=== PATIENT | female | born 1990 | race Caucasian/White ===

== ENCOUNTER 2019-12-01 12:49 | Emergency (ER) | payer SELFPAY ==
[2019-12-01 12:52] VITALS: BP 121/72; PULSE 101; RESP 16; TEMP 36.9; O2SAT 100; BMI 25.0
--- NOTE | 2019-12-01 13:08 | CT_ITS ---
PROCEDURE: CT CERVICAL SPINE WO CON CLINICAL INDICATION: fall, neck pain Neck injury with pain, contusion/abrasion or hematoma, cervical sprain/strain the COMPARISON: No exams were available for comparison TECHNIQUE: Axial images obtained with sagittal and coronal reformats. All CT scans at the facility use one or more dose reduction, viz: automated exposure control, ma/kV adjustment per patient size (including targeted exams where dose is matched to indication, i.e. head), or iterative reconstruction technique. Axial spiral CT scanning performed of the cervical spine beginning at the base of the skull and continuing to the upper T-spine. 3-D multiplanar reconstruction with 3-D manipulation of volumetric data set in image rendering was completed by the radiologist and/or technologist with the supervision of the radiologist on independent workstation. FINDINGS: No fracture nor subluxation is evident. Normal prevertebral soft tissues. Facets, neural foramen and vertebral bodies intact and unremarkable. Normal C1/C2 relationships. Apices of lungs are clear with no acute findings.There is straightening/reversal of the normal lordosis which may be due to patient positioning or muscle spasm. Scattered small nodes in the IMPRESSION: Straightening of cervical lordosis otherwise negative Dictated by: Usman Werner MD 12/01/2019 15:31 Usman Werner MD in [facility] 12/01/2019 15:31
--- NOTE | 2019-12-01 13:08 | CT_ITS ---
PROCEDURE: CT HEAD/BRAIN WO CON CLINICAL INDICATION: fall, LOC Head injury with headache/pain, contusion, abrasion or hematoma COMPARISON: No exams were available for comparison TECHNIQUE: Axial images obtained. All CT scans at the facility use one or more dose reduction, viz: automated exposure control, ma/kV adjustment per patient size (including targeted exams where dose is matched to indication, i.e. head), or iterative reconstruction technique. FINDINGS: No midline shift, mass effect, intracranial hemorrhage, hydrocephalus, or extra-axial fluid collection is evident. The calvarium has an unremarkable appearance. No mastoid effusion. No sinus air-fluid level. IMPRESSION: No acute intracranial finding Dictated by: Usman Werner MD 12/01/2019 15:28 Usman Werner MD in [facility] 12/01/2019 15:28
--- NOTE | 2019-12-01 13:08 | XR_ITS ---
PROCEDURE: XR ELBOW RT 2V CLINICAL INDICATION: fall, pain COMPARISON: No exams were available for comparison FINDINGS: No fracture or dislocation. No lytic or blastic change. There is normal mineralization. The joint spaces are well-preserved. No significant degenerative/arthritic changes. No erosive changes evident. Other findings:Intravenous catheter noted in the antecubital fossa IMPRESSION: No acute findings. Dictated by: Usman Werner MD 12/01/2019 15:32 Usman Werner MD in [facility] 12/01/2019 15:32
--- NOTE | 2019-12-01 13:10 | HMH.EDGENADL ---
ED Disposition Clinical Impression: Alcohol use Concussion Qualifiers: Encounter type: initial encounter Loss of consciousness presence/duration: with LOC of unspecified duration Qualified Code(s): S06.0X9A - Concussion with loss of consciousness of unspecified duration, initial encounter Fall Qualifiers: Encounter type: initial encounter Qualified Code(s): W19.XXXA - Unspecified fall, initial encounter Disposition: Home, Self-Care Condition on Discharge: Fair Instructions: DI for Concussion Additional Instructions: You have been evaluated for fall, closed head injury. Please follow-up with your primary care doctor in 1 to 2 days for symptom recheck. Avoid second head injury or fall. Return to the emergency department if you have any new or worsening symptoms Referrals: Nehemias Barron [Primary Care Provider] - Time of Disposition: 15:34 - Critical Care Critical Care Time: No Attestation: On 12/01/19, the high probability of a clinically significant, sudden or life threatening deterioration of the following system(s) required my full and direct attention, intervention and personal management. The time I documented below is in addition to time spent performing reported procedures but includes the following listed in this critical care notation. Medical Decision Making - Medical Records Medical records reviewed: Yes: I reviewed the patient's medical records. - Cristi Inquiry Pt receiving controlled substance: No Vital Signs: 12/01/19 12:52 12/01/19 14:10 12/01/19 14:49 Temperature 98.5 F Temperature Source Oral Pulse Rate Pulse Rate [Right] 101 H 87 70 Respiratory Rate 16 16 Blood Pressure Blood Pressure [Right Arm] 121/72 123/69 117/63 Blood Pressure Mean [Right Arm] 88 87 81 Blood Pressure Source [Right Arm] Automatic Cuff Automatic Cuff Automatic Cuff Blood Pressure Position [Right Arm] Sitting Sitting Sitting 02 Sat by Pulse Oximetry 100 100 98 Oxygen Delivery Method Room Air Room Air Room Air 12/01/19 16:06 Temperature 98.4 F Temperature Source Pulse Rate 64 Pulse Rate [Right] Respiratory Rate 17 Blood Pressure 118/87 Blood Pressure [Right Arm] Blood Pressure Mean [Right Arm] Blood Pressure Source [Right Arm] Blood Pressure Position [Right Arm] 02 Sat by Pulse Oximetry Oxygen Delivery Method - Lab Data Lab Results 12/01/19 13:50: WBC 5.3, RBC 4.11 L, Hgb 13.4, Hct 37.3, MCV 90.7, MCH 32.6 H, MCHC 35.9 H, RDW 12.6, Plt Count 199, MPV 7.6, Neut % (Auto) 78.6, Lymph % (Auto) 17.5, [place] % (Auto) 3.2, Eos % (Auto) 0.5, Baso % (Auto) 0.2, Neut # (Auto) 4.2, Lymph # (Auto) 0.9, [place] # (Auto) 0.2, Eos # (Auto) 0.0, Baso # (Auto) 0.0 12/01/19 13:50: Sodium 141, Potassium 4.0, Chloride 105, Carbon Dioxide 27, Anion Gap 13.0, BUN 6 L, Creatinine 0.70, Estimated Creat Clear 130, Estimated GFR 100, Est GFR ( Amer) 121, Glucose 107 H, Calcium 9.8, Total Bilirubin 0.5, AST 35, ALT 56, Alkaline Phosphatase 67, Total Protein 8.0, Albumin 4.6, Globulin 3.4 H, Albumin/Globulin Ratio 1.4 12/01/19 13:50: Serum HCG, Qual Negative 12/01/19 13:50: Plasma/Serum Alcohol < 10 Result diagrams: 12/01/19 13:50 12/01/19 13:50 Medical Decision Narrative: In summary this is a 29-year-old female presenting to the emergency department with headache and right elbow pain after a fall last night. Patient is stable on arrival. She does not appear to be clinically intoxicated. However she has not slept in over 36 hours. Concerned that her history and exam are somewhat unreliable. Will obtain noncontrast head CT, CT C-spine, x-rays of the right elbow Elbow x-ray shows no fracture or dislocation. Noncontrast head CT shows no bleed or other abnormality. CT of the C-spine shows no bony abnormality. Overall presentation is most consistent with concussion, closed head injury. Fall and alcohol use. Patient counseled on concussion. Counseled to avoid second head injury. Follow-up with PCP. Samantha
[2019-12-01 14:10] VITALS: BP 123/69; PULSE 87; RESP 16; O2SAT 100
[2019-12-01 14:19] LABS: Basophils % 0.2 % (0.1-2.0); Eosinophils % 0.5 % (0.1-12.0); Hematocrit 37.3 % (37.0-47.0); Hemoglobin 13.4 g/dL (12.2-16.2); Lymphocytes # 0.9 K/mm3 (0.7-4.5); Lymphocytes % 17.5 % (10-50); Mean Corpuscular HGB Conc 35.9 g/dL (31.8-35.4); Mean Corpuscular Hemoglobin 32.6 pg (27.0-31.2); Mean Corpuscular Volume 90.7 fl (81-99); Mean Platelet Volume 7.6 fl (7.4-10.4); Monocytes # 0.2 K/mm3 (0.1-1.0); Monocytes % 3.2 % (1.7-9.3); Neutrophils # 4.2 K/mm3 (1.8-7.8); Neutrophils % 78.6 % (37.0-80.0); Platelet Count 199 K/mm3 (142-424); Red Blood Count 4.11 M/mm3 (4.20-5.40); Red Cell Distribution Width 12.6 % (11.5-17.5); White Blood Count 5.3 K/mm3 (4.8-10.8)
[2019-12-01 14:22] LABS: Chloride 105 mmol/L (98-107); Sodium 141 mmol/L (136-145)
[2019-12-01 14:25] LABS: Alanine Aminotransferase 56 U/L (12-78); Albumin Level 4.6 g/dl (3.5-5.0); Albumin/Globulin Ratio 1.4 (1.1-1.8); Alkaline Phosphatase 67 U/L (38-126); Aspartate Amino Transferase 35 U/L (14-36); Bilirubin,Total 0.5 mg/dl (0.2-1.3); Blood Urea Nitrogen 6 mg/dl (7-17); Calcium 9.8 mg/dl (8.4-10.2); Carbon Dioxide 27 mmol/L (22.0-30.0); Creatinine Clearance Estimated 130 mL/min (50-200); Estimated Glomerular Filt Rate 100 ml/min (>60); GFR (African American) 121 ML/MIN (>60); Globulin 3.4 g/dL (1.3-3.2); Glucose 107 mg/dl (74-100)
[2019-12-01 14:30] LABS: HCG Qualitative, Serum Negative (Negative)
[2019-12-01 14:32] LABS: Ethyl Alcohol < 10 mg/dl (0-10)
[2019-12-01 14:49] VITALS: BP 117/63; PULSE 70; O2SAT 98
--- NOTE | 2019-12-01 15:02 | PC.NURSE ---
Pt gone to CT
[2019-12-01 16:06] VITALS: BP 118/87; PULSE 64; RESP 17; TEMP 36.9; O2SAT 100
== END 2019-12-01 16:07 | disposition home or self-care (01) ==
PROVIDERS: Emergency Provider Emergency Medicine; PCP Family Medicine
DX: S06.0X9A Concussion with loss of consciousness of unspecified duration, initial encounter (principal); S50.01XA Contusion of right elbow, initial encounter; W01.0XXA Fall on same level from slipping, tripping and stumbling without subsequent striking against object, initial encounter; Y92.009 Unspecified place in unspecified non-institutional (private) residence as the place of occurrence of the external cause; F10.10 Alcohol abuse, uncomplicated
CPT/HCPCS: 70450; 72125; 73070; 80053; 84703; 85025; 99283

== ENCOUNTER 2019-12-03 00:26 | Emergency (ER) | payer OTHER, SELFPAY ==
[2019-12-03 00:27] VITALS: BMI 20.1
[2019-12-03 00:42] VITALS: BP 111/58; PULSE 92; RESP 14; TEMP 37; O2SAT 98; BMI 25.0
[2019-12-03 00:48] LABS: Microscopic, Urine URINE MICROSCOPIC (MICROSCOPIC)
[2019-12-03 00:51] LABS: Blood, Urine Negative (Negative); Glucose,Urine (UA) Negative (Negative); Ketones,Urine TRACE (Negative); Leukocyte Esterase,Urine 1+ (Negative); Nitrate,Urine Negative (Negative); Protein,Urine 1+ (Negative); Specific Gravity, Urine 1.025 (1.005-1.030); Urobilinogen,Urine 0.2 EU/dl (0.2)
[2019-12-03 01:07] LABS: Urine Pregnancy, HCG Qual. Negative (Negative)
[2019-12-03 01:08] LABS: Appearance,Urine Slightly Cloudy (Clear); Bilirubin,Urine Negative (Negative); Color,Urine Dark Yellow (Yellow)
[2019-12-03 01:10] LABS: Bacteria,Urine Trace /lpf; Squamous Epithelial Cell,Urine Occasional #/hpf (0-5)
--- NOTE | 2019-12-03 01:35 | HMH.EDSKAF ---
ED Disposition Clinical Impression: Dermatitis Disposition: Home, Self-Care Condition on Discharge: Good Instructions: DI for Skin Abscess Additional Instructions: use meds and see pcp for follo wup Prescriptions: Fluconazole [Diflucan 100mg tablet] 100 mg PO DAILY #5 tab Transmission Status: Pending to [facility] [id number] predniSONE [Prednisone 20mg Tab] 20 mg PO BID #10 tab Transmission Status: Pending to [facility] # [id number] Referrals: Nehemias Barron [Primary Care Provider] - - Critical Care Critical Care Time: No Attestation: On 12/03/19, the high probability of a clinically significant, sudden or life threatening deterioration of the following system(s) required my full and direct attention, intervention and personal management. The time I documented below is in addition to time spent performing reported procedures but includes the following listed in this critical care notation. Medical Decision Making - Medical Records Medical records reviewed: Yes: I reviewed the patient's medical records. - Cristi Inquiry Pt receiving controlled substance: No Vital Signs: 12/03/19 00:42 Temperature 98.6 F Temperature Source Oral Pulse Rate [Right Brachial] 92 H Respiratory Rate 14 Blood Pressure [Right Arm] 111/58 L Blood Pressure Mean [Right Arm] 75 Blood Pressure Source [Right Arm] Automatic Cuff Blood Pressure Position [Right Arm] Sitting 02 Sat by Pulse Oximetry 98 Oxygen Delivery Method Room Air - Lab Data Lab results reviewed: Yes: I reviewed the patient's lab results. Lab Results 12/03/19 00:45: Urine Color Dark yellow, Urine Appearance Slightly cloudy, Urine pH 6.0, Ur Specific [place] 1.025, Urine Protein 1+, Urine Glucose (UA) Negative, Urine Ketones Trace, Urine Blood Negative, Urine Nitrate Negative, Urine Bilirubin Negative, Urine Urobilinogen 0.2, Ur Leukocyte Esterase 1+ A, Urine WBC 3-5, Ur Squamous Epith Cells Occasional, Urine Bacteria Trace 12/03/19 00:45: Urine HCG, Qual Negative Orders (Tests/Meds): ORDERS Category Date Time Status Urine Culture Stat Micro 12/03/19 00:45 Received Skin/Abscess/FB HPI - General Chief complaint: Skin/Abscess/Foreign Body Stated complaint: Rash from waist down, itches and harris Time Seen by Provider: 12/03/19 00:50 Mode of Arrival: Ambulatory Source of Information: Patient, Relative, Medical Record Limitations: No Limitations Description of Symptoms (Recalled from ER Triage Doc. by RN): Patient reports a rash that starts around her waist, butt and goes down around on her inner thighs. - History of Present Illness HPI narrative: inner thigh and buttock rash over the last 2 days with burning and itching MD complaint: rash Onset (ago): day(s) Tetanus up to date: unsure Location: buttocks Severity: moderate Associated symptoms: denies other symptoms Treatments prior to arrival: none - Related Data Home Medications Medication Instructions Recorded Confirmed Buspirone HCl [Buspirone 7.5mg 7.5 mg PO DAILY 12/03/19 12/03/19 tablets] Prazosin HCl [Minipress] 1 mg PO DAILY 12/03/19 12/03/19 Trazodone HCl 50 mg PO DAILY 12/03/19 12/03/19 Venlafaxine HCl 75 mg PO DAILY 12/03/19 12/03/19 levETIRAcetam [Levetiracetam] 750 mg PO DAILY 12/03/19 12/03/19 norgestimate-ethinyl estradioL 0.25 - 35 mg PO DAILY 12/03/19 12/03/19 [Previfem Tablet] Previous Rx's Medication Instructions Recorded Fluconazole [Diflucan 100mg tablet] 100 mg PO DAILY #5 tab 12/03/19 predniSONE [Prednisone 20mg 20 mg PO BID #10 tab 12/03/19 Tab] Allergies Allergy/AdvReac Type Severity Reaction Status Date / Time SULFA (sulfonamide) Allergy Intermediate I-RASH Uncoded 03/29/17 15:29 [facility] History - Hepatitis A Screen Drug use history?: No High risk sexual behaviors?: No History of sexually transmitted infection?: No Currently employed?: No Childcare worker?: No Do you have indoor plumbing?: Yes Do you have electricit
[2019-12-03 01:41] VITALS: BP 110/66; PULSE 77; RESP 16; TEMP 37; O2SAT 98
== END 2019-12-03 01:48 | disposition home or self-care (01) ==
PROVIDERS: Emergency Provider Emergency Medicine; PCP Family Medicine
DX: L30.9 Dermatitis, unspecified (principal); Z88.2 Allergy status to sulfonamides; F17.210 Nicotine dependence, cigarettes, uncomplicated
CPT/HCPCS: 81001; 81025; 87086; 99282

== ENCOUNTER 2020-10-22 23:03 | Emergency (ER) | payer OTHER, SELFPAY ==
[2020-10-22 23:04] VITALS: BP 134/85; PULSE 107; RESP 18; TEMP 36.9; O2SAT 98
--- NOTE | 2020-10-22 23:29 | HMH.EDNVD ---
ED Disposition Clinical Impression: Abdominal pain Qualifiers: Abdominal location: right upper quadrant Qualified Code(s): R10.11 - Right upper quadrant pain Disposition: Home, Self-Care Condition on Discharge: Good Instructions: DI for Acute Abdominal Pain Additional Instructions: pt will f/u with pcp Referrals: Nehemias Barron [Primary Care Provider] - - Critical Care Critical Care Time: No Attestation: On 10/22/20, the high probability of a clinically significant, sudden or life threatening deterioration of the following system(s) required my full and direct attention, intervention and personal management. The time I documented below is in addition to time spent performing reported procedures but includes the following listed in this critical care notation. Medical Decision Making - Medical Records Medical records reviewed: Yes: I reviewed the patient's medical records. - Cristi Inquiry Pt receiving controlled substance: No Vital Signs: 10/22/20 23:04 Temperature 98.4 F Temperature Source Oral Pulse Rate [Right] 107 H Respiratory Rate 18 Blood Pressure [Right Arm] 134/85 Blood Pressure Mean [Right Arm] 101 02 Sat by Pulse Oximetry 98 - Lab Data Lab results reviewed: Yes: I reviewed the patient's lab results. Lab Results 10/22/20 23:12: Urine Color Yellow, Urine Appearance Clear, Urine pH 7.0, Ur Specific [place] 1.020, Urine Protein Negative, Urine Glucose (UA) Negative, Urine Ketones Negative, Urine Blood Negative, Urine Nitrate Negative, Urine Bilirubin Negative, Urine Urobilinogen 0.2, Ur Leukocyte Esterase Trace, Urine RBC Occasional, Urine WBC 3-5, Ur Squamous Epith Cells Occasional, Urine Bacteria Trace 10/22/20 23:12: WBC 4.7 L, RBC 4.56, Hgb 13.9, Hct 40.5, MCV 88.8, MCH 30.6, MCHC 34.4, RDW 13.2, Plt Count 227, MPV 7.7, Neut % (Auto) 59.0, Lymph % (Auto) 36.1, [place] % (Auto) 3.5, Eos % (Auto) 0.6, Baso % (Auto) 0.7, Neut # (Auto) 2.8, Lymph # (Auto) 1.7, [place] # (Auto) 0.2, Eos # (Auto) 0.0, Baso # (Auto) 0.0, ESR 7 10/22/20 23:12: Urine HCG, Qual Negative 10/22/20 23:12: Sodium 140, Potassium 4.0, Chloride 102, Carbon Dioxide 29, Anion Gap 13.0, BUN 12, Creatinine 0.70, Estimated Creat Clear 103, Estimated GFR 100, Est GFR ( Amer) 121, Glucose 96, Calcium 9.3, Total Bilirubin 0.7, AST 29, ALT 32, Alkaline Phosphatase 87, Total Protein 8.2, Albumin 4.9, Globulin 3.3 H, Albumin/Globulin Ratio 1.5, Amylase 75, Lipase 149, Procalcitonin < 0.030 10/22/20 23:12: Urine Opiates Screen Negative, Urine Methadone Screen Negative, Ur Barbituates Screen Negative, Ur Phencyclidine Scrn Negative, Ur Amphetamines Screen Negative, U Benzodiazepines Scrn Negative, Urine Cocaine Screen Negative, U Marijuana (THC) Screen Negative Result diagrams: 10/22/20 23:12 10/22/20 23:12 Orders (Tests/Meds): ED MEDICATIONS Generic Name Dose Route Start Last Admin Trade Name Freq PRN Reason Stop Dose Admin Sodium Chloride 1,000 mls @ 999 mls/hr 10/22/20 23:30 10/22/20 23:51 Sod Chlor 0.9% 1000ml Bag IV 10/23/20 00:30 999 mls/hr .Q1H1M CJ Administration Sodium Chloride 8 ml 10/22/20 23:22 Sodium Chloride 0.9% 10ml Vial IV 11/21/20 23:21 NEEDED PRN dilute pepcid Discontinued Medications Generic Name Dose Route Start Last Admin Trade Name Freq PRN Reason Stop Dose Admin Diatrizoate Meglum/Diatrizoate Sod 30 ml 10/22/20 23:20 10/22/20 23:50 Diatrizoate [place] 66% & Diatrizoate Na 10% 30ml Udc PO 10/22/20 23:21 30 ml ONCE ONE Administration Famotidine 20 mg 10/22/20 23:22 10/22/20 23:51 Famotidine 20mg/2ml Vial IV 10/22/20 23:23 20 mg ONCE ONE Administration Iopamidol 75 ml 10/23/20 01:40 10/23/20 01:42 Iopamidol-370 (76%);100ml Bottle IV 10/23/20 01:41 75 ml ONCE ONE Administration Ketorolac Tromethamine 30 mg 10/22/20 23:22 10/22/20 23:50 Ketorolac 30mg/Ml Vial IV 10/22/20 23:23 30 mg ONCE ONE Administration Metoclopramide HCl 10 m
[2020-10-22 23:30] LABS: Microscopic, Urine URINE MICROSCOPIC (MICROSCOPIC)
[2020-10-22 23:33] LABS: Basophils % 0.7 % (0.1-2.0); Eosinophils % 0.6 % (0.1-12.0); Hematocrit 40.5 % (37.0-47.0); Hemoglobin 13.9 g/dL (12.2-16.2); Lymphocytes # 1.7 K/mm3 (0.7-4.5); Lymphocytes % 36.1 % (10-50); Mean Corpuscular HGB Conc 34.4 g/dL (31.8-35.4); Mean Corpuscular Hemoglobin 30.6 pg (27.0-31.2); Mean Corpuscular Volume 88.8 fl (81-99); Mean Platelet Volume 7.7 fl (7.4-10.4); Monocytes # 0.2 K/mm3 (0.1-1.0); Monocytes % 3.5 % (1.7-9.3); Neutrophils # 2.8 K/mm3 (1.8-7.8); Platelet Count 227 K/mm3 (142-424); Red Blood Count 4.56 M/mm3 (4.20-5.40); Red Cell Distribution Width 13.2 % (11.5-17.5); White Blood Count 4.7 K/mm3 (4.8-10.8)
[2020-10-22 23:41] LABS: Appearance,Urine CLEAR (Clear); Bilirubin,Urine Negative (Negative); Blood, Urine Negative (Negative); Color,Urine YELLOW (Yellow); Glucose,Urine (UA) Negative (Negative); Ketones,Urine Negative (Negative); Leukocyte Esterase,Urine TRACE (Negative); Nitrate,Urine Negative (Negative); Protein,Urine Negative (Negative); Urobilinogen,Urine 0.2 EU/dl (0.2)
[2020-10-22 23:42] LABS: Alanine Aminotransferase 32 U/L (12-78); Albumin Level 4.9 g/dl (3.5-5.0); Albumin/Globulin Ratio 1.5 (1.1-1.8); Alkaline Phosphatase 87 U/L (38-126); Amylase 75 U/L (30-110); Aspartate Amino Transferase 29 U/L (14-36); Bilirubin,Total 0.7 mg/dl (0.2-1.3); Blood Urea Nitrogen 12 mg/dl (7-17); Calcium 9.3 mg/dl (8.4-10.2); Carbon Dioxide 29 mmol/L (22.0-30.0); Chloride 102 mmol/L (98-107); Creatinine Clearance Estimated 103 mL/min (50-200); Estimated Glomerular Filt Rate 100 ml/min (>60); GFR (African American) 121 ML/MIN (>60); Globulin 3.3 g/dL (1.3-3.2); Glucose 96 mg/dl (74-100); Lipase 149 U/L (23-300); Sodium 140 mmol/L (136-145); Total Protein,Serum 8.2 g/dl (6.3-8.2)
[2020-10-22 23:43] LABS: Urine Pregnancy, HCG Qual. Negative (Negative)
--- NOTE | 2020-10-23 | PC.NURSE ---
pt completed contrast and notified xray of contrast being complete
[2020-10-23 00:02] LABS: Procalcitonin < 0.030 ng/mL (0.0-2.0)
--- NOTE | 2020-10-23 00:05 | CT_ITS ---
PROCEDURE INFORMATION: Exam: CT Abdomen And Pelvis With Contrast Exam date and time: 10/23/2020 12:05 AM Age: 30 years old Clinical indication: Abdominal pain; Right; Prior surgery; Surgery date: 6+ months; Surgery type: Appendix; Patient HX: Rlq and RT flank pain TECHNIQUE: Imaging protocol: Computed tomography of the abdomen and pelvis with contrast. Radiation optimization: All CT scans at this facility use at least one of these dose optimization techniques: automated exposure control; mA and/or kV adjustment per patient size (includes targeted exams where dose is matched to clinical indication); or iterative reconstruction. Contrast material: ISOVUE; Contrast volume: 75 ml; Contrast route: IV; COMPARISON: No relevant prior studies available. FINDINGS: Liver: Unremarkable. No definable mass or enhancing hepatic lesion. Gallbladder and bile ducts: Gallbladder is partially decompressed but otherwise unremarkable. Pancreas: Normal. No ductal dilation. Spleen: Normal. No splenomegaly. Adrenal glands: Normal. No mass. Kidneys and ureters: Kidneys enhance symmetrically and there is no evidence for obstructive uropathy. Stomach and bowel: Unremarkable. No obstruction. No mucosal thickening. Appendix: The appendix is not definitively visualized, possibly small or absent, however, regional sequela of appendicitis is not identified. Intraperitoneal space: Unremarkable. No free air. No significant fluid collection. Vasculature: Unremarkable. No abdominal aortic aneurysm. Lymph nodes: Unremarkable. No enlarged lymph nodes. Urinary bladder: Unremarkable as visualized. Reproductive: Right adnexal 3.1 x 2.6 cm focus may relate to hemorrhagic ovarian cyst. Bones/joints: Unremarkable. No acute fracture. Soft tissues: Unremarkable. IMPRESSION: 1. No overt acute inflammatory process or suspicious mass noted. No evidence for bowel obstruction or obstructive uropathy. 2. Right adnexal 3.1 x 2.6 cm focus may relate to hemorrhagic ovarian cyst.
[2020-10-23 00:10] LABS: Bacteria,Urine Trace /lpf; RBC,Urine Occasional #/hpf (0-3); Squamous Epithelial Cell,Urine Occasional #/hpf (0-5)
[2020-10-23 00:40] LABS: Benzodiazepines Screen,Urine Negative ng/ml (<200)
[2020-10-23 00:41] LABS: Amphetamine/Metha Screen,Urine Negative ng/ml (<1000)
[2020-10-23 00:42] LABS: Barbiturates Screen,Urine Negative ng/ml (<200); Cannabinoid Screen,Urine Negative ng/ml (<50)
[2020-10-23 00:44] LABS: Methadone Screen,Urine Negative ng/ml (<300); Opiate Screen,Urine Negative ng/ml (<300)
[2020-10-23 00:45] LABS: Phencyclidine Screen,Urine Negative ng/ml (<25)
[2020-10-23 00:51] LABS: Cocaine Screen,Urine Negative ng/ml (<300)
[2020-10-23 01:11] LABS: Erythrocyte Sedimentation Rate 7 mm/hr (0-20)
--- NOTE | 2020-10-23 01:33 | PC.NURSE ---
pt gone to radiology at this time
--- NOTE | 2020-10-23 01:48 | PC.NURSE ---
pt back in room from radiology.
[2020-10-23 03:56] VITALS: BP 120/75; PULSE 91; RESP 16; TEMP 36.9; O2SAT 99
[2020-10-23 04:37] LABS: C-Reactive Protein < 0.3 mg/L (0-4)
== END 2020-10-23 03:58 | disposition home or self-care (01) ==
PROVIDERS: Emergency Provider Emergency Medicine; PCP Family Medicine
DX: R10.31 Right lower quadrant pain (principal); R11.0 Nausea; F17.210 Nicotine dependence, cigarettes, uncomplicated
CPT/HCPCS: 74177; 80053; 80305; 81001; 81025; 82150; 83690; 84145; 85025; 85651; 86140; 96365; 96375; 99283; J2405; Q9967

== ENCOUNTER → 2021-11-17 06:21 | Outpatient (CLI) | payer OTHER, SELFPAY ==
[2021-11-17 18:48] LABS: Basophils # 0.1 K/mm3 (0-0.2); Basophils % 0.8 % (0.1-2.0); Eosinophils % 0.3 % (0.1-12.0); Hematocrit 37.8 % (37.0-47.0); Hemoglobin 12.1 g/dL (12.2-16.2); Lymphocytes # 1.5 K/mm3 (0.7-4.5); Lymphocytes % 23.9 % (10-50); Mean Corpuscular HGB Conc 31.9 g/dL (31.8-35.4); Mean Corpuscular Hemoglobin 32.1 pg (27.0-31.2); Mean Corpuscular Volume 100.8 fl (81-99); Mean Platelet Volume 8.9 fl (7.4-10.4); Monocytes # 0.3 K/mm3 (0.1-1.0); Monocytes % 4.2 % (1.7-9.3); Neutrophils # 4.3 K/mm3 (1.8-7.8); Neutrophils % 70.8 % (37.0-80.0); Platelet Count 224 K/mm3 (142-424); Red Blood Count 3.75 M/mm3 (4.20-5.40); Red Cell Distribution Width 12.4 % (11.5-17.5); White Blood Count 6.1 K/mm3 (4.8-10.8)
[2021-11-17 19:10] LABS: Alanine Aminotransferase 28 U/L (12-78); Albumin Level 4.4 g/dl (3.5-5.0); Albumin/Globulin Ratio 1.5 (1.1-1.8); Alkaline Phosphatase 67 U/L (38-126); Anion Gap 11.3 mEq/L (5-15); Aspartate Amino Transferase 26 U/L (14-36); Bilirubin,Total 0.5 mg/dl (0.2-1.3); Calcium 9.3 mg/dl (8.4-10.2); Carbon Dioxide 27 mmol/L (22.0-30.0); Chloride 105 mmol/L (98-107); Globulin 2.9 g/dL (1.3-3.2); Glucose 95 mg/dl (74-100); Potassium 4.3 mmoL/L (3.5-5.1); Sodium 139 mmol/L (136-145); Total Protein,Serum 7.3 g/dl (6.3-8.2)
[2021-11-17 20:09] LABS: Blood Urea Nitrogen 14 mg/dl (7-17); Estimated Glomerular Filt Rate 118 ml/min (>60); GFR (African American) 143 ML/MIN (>60)
== END ==
PROVIDERS: PCP Family Medicine; Visit Provider Family Medicine
DX: R11.2 Nausea with vomiting, unspecified (principal)
CPT/HCPCS: 80053; 85025

== ENCOUNTER 2023-08-17 10:19 | Outpatient (CLI) | payer OTHER, SELFPAY ==
[2023-08-17 12:16] LABS: HCG,Quantitative 159900 mIU/ml (0-5.42)
[2023-08-18 08:19] LABS: Progesterone 20.3 ng/mL (.)
== END 2023-08-17 23:59 | disposition home or self-care (01) ==
LOC: LAB 10:23
PROVIDERS: PCP Family Medicine; Visit Provider Obstetrics & Gynecology
DX: N92.6 Irregular menstruation, unspecified (principal); Z32.00 Encounter for pregnancy test, result unknown
CPT/HCPCS: 36415; 84144; 84702

== ENCOUNTER 2023-08-19 18:14 | Emergency (ER) | payer OTHER, SELFPAY ==
[2023-08-19 18:15] VITALS: BP 101/68; PULSE 117; RESP 16; TEMP 36.8; O2SAT 98; BMI 21.2
[2023-08-19 19:37] LABS: Basophils % 0.5 % (0.1-2.0); Eosinophils # 0.1 K/mm3 (0.0-0.4); Eosinophils % 1.8 % (0.1-12.0); Hematocrit 35.8 % (37.0-47.0); Hemoglobin 11.9 g/dL (12.2-16.2); Lymphocytes # 1.6 K/mm3 (0.7-4.5); Lymphocytes % 27.7 % (10-50); Mean Corpuscular HGB Conc 33.3 g/dL (31.8-35.4); Mean Corpuscular Hemoglobin 32.6 pg (27.0-31.2); Mean Corpuscular Volume 97.8 fl (81-99); Mean Platelet Volume 8.1 fl (7.4-10.4); Monocytes # 0.3 K/mm3 (0.1-1.0); Monocytes % 5.3 % (1.7-9.3); Neutrophils # 3.7 K/mm3 (1.8-7.8); Neutrophils % 64.8 % (37.0-80.0); Platelet Count 230 K/mm3 (142-424); Red Blood Count 3.66 M/mm3 (4.20-5.40); Red Cell Distribution Width 13.7 % (11.5-17.5); White Blood Count 5.8 K/mm3 (4.8-10.8)
[2023-08-19 19:45] LABS: Chloride 104 mmol/L (98-107); Potassium 3.9 mmoL/L (3.5-5.1); Sodium 136 mmol/L (136-145)
[2023-08-19 19:47] LABS: HCG Qualitative, Serum Positive (Negative)
[2023-08-19 19:48] LABS: Alanine Aminotransferase 25 U/L (12-78); Albumin Level 4.2 g/dl (3.5-5.0); Albumin/Globulin Ratio 1.3 (1.1-1.8); Alkaline Phosphatase 64 U/L (38-126); Anion Gap 12.9 mEq/L (5-15); Aspartate Amino Transferase 26 U/L (14-36); Bilirubin,Total 0.3 mg/dl (0.2-1.3); Blood Urea Nitrogen 10 mg/dl (7-17); Carbon Dioxide 23 mmol/L (22.0-30.0); Creatinine Clearance Estimated 187 mL/min (50-200); Estimated Glomerular Filt Rate 186 ml/min (>60); GFR (African American) 225 ML/MIN (>60); Globulin 3.3 g/dL (1.3-3.2); Total Protein,Serum 7.5 g/dl (6.3-8.2)
[2023-08-19 19:49] LABS: Calcium 9.1 mg/dl (8.4-10.2); Glucose 88 mg/dl (74-100)
--- NOTE | 2023-08-19 19:49 | US_ITS ---
PROCEDURE INFORMATION: Exam: US , Transvaginal Exam date and time: 08/19/2023 8:10 PM Age: 33 years old Clinical indication: Lmp or gestational age (in weeks): 10w2d; Antepartum complications; Bleeding; ; Additional info: Preg location TECHNIQUE: Imaging protocol: Real-time transvaginal obstetrical ultrasound of the maternal pelvis with image documentation. Transvaginal imaging was used for better evaluation of the fetus, adnexa, and/or cervix. COMPARISON: CT ABDOMEN PELVIS W CON 10/23/2020 1:28 AM FINDINGS: Gestation: Single intrauterine gestation. Yolk sac measures 0.53 cm. [place]-rump length 0.33 cm. heart rate: 176 bpm Placenta: Small subchorionic hemorrhage. BIOMETRY: Gestational age (AUA): 10 weeks 2 days MATERNAL: Cervix: Measures 3.24 cm in length. Right ovary/adnexa: Unremarkable ovary. Normal vascular flow. No adnexal mass. Left ovary/adnexa: Unremarkable ovary. Normal vascular flow. No adnexal mass. IMPRESSION: 1. Single live intrauterine gestation measuring 10 weeks 2 days. 2. Small subchorionic hemorrhage.
--- NOTE | 2023-08-19 19:49 | HMH.EDGENADL ---
Discharge Plan Disposition Patient Disposition: Home, Self-Care Prescriptions Prescriptions: New nitrofurantoin monohyd/m-cryst [Macrobid] 100 mg capsule 100 mg PO BID 5 Days Qty: 10 0RF Rx Instructions: must administer with a meal/food No Action hyoscyamine sulfate 0.125 mg tablet,disintegrating 0.125 mg PO QID Qty: 120 2RF levofloxacin 750 mg tablet 750 mg PO DAILY Qty: 5 0RF norgestimate-ethinyl estradiol 0.25-35 mg-mcg tablet 0.25 - 35 mg PO DAILY Referrals Follow up/Referrals: Nehemias Barron [Primary Care Provider] - See instructions Activity Restrictions/Add. Instructions Additional Instructions/Restrictions: At this time it was felt you are safe to be discharged home. If new or worsening symptoms please do not hesitate to return the emergency department. Please take antibiotics as prescribed and follow-up with your OB on Tuesday as discussed. Clinical Impressions Clinical Impression: , threatened, Vaginal bleeding in , Subchorionic hemorrhage, UTI (urinary tract infection) Discharge ED Provider: Polo Nicole General Adult HPI General Chief complaint: Vaginal Bleeding Stated complaint: 12-14 weeks with spotting blood Time Seen by Provider: 08/19/23 18:30 Mode of Arrival: Ambulatory Source of Information: Patient Limitations: No Limitations Description of Symptoms (Recalled from ER Triage Doc. by RN): pt presents to ED with c.o vaginal bleeding. pt reports she has appt with dr brittany marquez carlos. pt was told she is approx 12-14 weeks according to blood work. pt reports only wearing a panty liner for the day. she has changed that twice, pt reports bleeding light pink History of Present Illness HPI narrative: Patient is a 33-year-old female G7, P2 last menstrual period May 29 who presents emergency department for evaluation of vaginal bleeding in the setting of . Patient has had spotting since this morning, no passage of clots or tissue, no significant cramping, no dysuria. Due to persistent symptoms she presents here for continued evaluation. Related Data Home Medications Medication Instructions Recorded Confirmed norgestimate 0.25 mg-ethinyl 0.25 - 35 mg PO DAILY control 12/03/19 11/17/21 estradiol 35 mcg tablet Previous Rx's Medication Instructions Recorded hyoscyamine sulfate 0.125 mg 0.125 mg PO QID #120 tabs 11/17/21 disintegrating tablet levofloxacin 750 mg tablet 750 mg PO DAILY #5 tabs 11/17/21 nitrofurantoin 100 mg PO BID UTI 5 days #10 caps 08/19/23 monohydrate/macrocrystals 100 mg capsule (Macrobid) Allergies Allergy/AdvReac Type Severity Reaction Status Date / Time SULFA (sulfonamide) Allergy Intermediate I-RASH Uncoded 11/17/21 14:33 [facility] Disclaimer: The information contained in this section may have been updated after the patient was seen, as this information can be updated by other users. Social History Smoking Status: Former smoker alcohol intake: never substance use type: denies use current occupational status: employed Travel in the last 8 weeks: None ROS Obtained: Yes Systems reviewed as appropriate & no additional complaints except as documented Physical Exam General General appearance: alert and in no apparent distress Head Head exam: atraumatic and normocephalic Eye Eye exam: Present PERRL ENT ENT exam: Present mucous membranes moist Neck Neck exam: Present normal inspection Chest Chest inspection: Present normal inspection and symmetric chest wall rise Respiratory Respiratory exam: Present normal lung sounds bilaterally; Absent respiratory distress Cardiovascular Cardiovascular exam: Present regular rate and normal rhythm Abdominal Exam Abdominal exam: Present soft and other (Gravid); Absent tenderness Extremities Exam Extremities exam: Present normal inspection Neurological Exam Neurological exam: Present alert Psychiatric Psychiatric exam: Present normal affect Skin Skin exam: Present warm and dry Medical Decision Making Cristi Inquiry Pt receiving controlled substance: No Vital Signs: 08/19/23 18:15 08/19/23 21:13 Temperature 98.3 F Temperature Source Oral Pulse Rate 95 H Pulse Rate [Left Radial] 117 H Respiratory Rate 16 Blood Pressure 101/70 L Blood Pressure [Right Arm] 101/68 L Blood Pressure Mean 76 Blood Pressure Mean [Right Arm] 79 02 Sat by Pulse Oximetry 98 100 Oxygen Delivery Method Room Air Lab Data Lab Results 08/19/23 18:18: Urine Color Yellow, Urine Appearance Clear, Urine pH 6.5, Ur Specific [place] 1.025, Urine Protein Negative, Urine Glucose (UA) Negative, Urine Ketones Negative, Urine Blood Negative, Urine Nitrate Positive, Urine Bilirubin Negative, Urine Urobilinogen 0.2, Ur Leukocyte Esterase Trace, Urine RBC None, Urine WBC Occasional, Ur Squamous Epith Cells 5-10, Urine Bacteria 3+ 05/10/24 19:24: WBC 5.8, RBC 3.66 L, Hgb 11.9 L, Hct 35.8 L, MCV 97.8, MCH 32.6 H, MCHC 33.3, RDW 13.7, Plt Count 230, MPV 8.1, Neut % (Auto) 64.8, Lymph % (Auto) 27.7, Smith % (Auto) 5.3, Eos % (Auto) 1.8, Baso % (Auto) 0.5, Neut # (Auto) 3.7, Lymph # (Auto) 1.6, Smith # (Auto) 0.3, Eos # (Auto) 0.1, Baso # (Auto) 0.0, Sodium 136, Potassium 3.9, Chloride 104, Carbon Dioxide 23, Anion Gap 12.9, BUN 10, Creatinine 0.40 L, Estimated Creat Clear 187, Estimated GFR 186, Est GFR ( Amer) 225, Glucose 88, Calcium 9.1, Total Bilirubin 0.3, AST 26, ALT 25, Alkaline Phosphatase 64, Total Protein 7.5, Albumin 4.2, Globulin 3.3 H, Albumin/Globulin Ratio 1.3, Serum HCG, Qual Positive, HCG, Quant [id number] H, Blood Type AB Positive, Antibody Screen Negative 08/19/23 19:24 08/19/23 19:24 Orders (Tests/Meds): ORDERS Category Date Time Status Type and Screen Stat BBK 08/19/23 19:24 Completed CBC w/Auto Diff [Complete Blood Count Auto Diff] Stat Lab 08/19/23 19:24 Completed CMP [Comprehensive Metabolic Panel] Stat Lab 08/19/23 19:24 Completed HCG Qualitative, Serum Stat Lab 08/19/23 19:24 Completed HCG,Quantitative Stat Lab 08/19/23 19:24 Completed UA [Urinalysis and Microscopic] Stat Lab 08/19/23 18:18 Completed Urine Culture Stat Micro 08/19/23 18:18 Received US OB transvaginal Stat Ultrasound 08/19/23 19:49 Completed Medical Decision Narrative: In summary patient is a 33-year-old female with past medical history described above who presents emergency department for evaluation of vaginal bleeding. Patient is hemodynamically stable nontoxic-appearing upon arrival, afebrile. Differential diagnosis includes threatened miscarriage, ectopic , physiologic bleeding, among others. Workup will be conducted with hematologic labs, urinalysis, transvaginal ultrasound. Initial workup reviewed by me, hematologic labs are nonactionable, no MARYSE or critical electrolyte abnormality, no significant anemia, urinalysis interpreted by me and consistent with infection, nitrate positive, positive bacteria. Transvaginal ultrasound shows single live intrauterine gestational sac measuring 10 weeks and 2 days with small subchorionic hemorrhage, heart rate 176. Given this patient is appropriate for discharge at this time will be discharged with a course of Macrobid and follow-up with her education counselor on outpatient basis this coming Tuesday. Critical Care Critical Care Time Critical Care Time: No
--- NOTE | 2023-08-19 19:50 | PC.NURSE ---
notified radiology of needing tv us
[2023-08-19 20:28] LABS: Microscopic, Urine URINE MICROSCOPIC (MICROSCOPIC)
[2023-08-19 20:31] LABS: Appearance,Urine CLEAR (Clear); Bilirubin,Urine Negative (Negative); Blood, Urine Negative (Negative); Color,Urine YELLOW (Yellow); Glucose,Urine (UA) Negative (Negative); Ketones,Urine Negative (Negative); Leukocyte Esterase,Urine TRACE (Negative); Nitrate,Urine POSITIVE (Negative); PH,Urine 6.5 (5.0-8.5); Protein,Urine Negative (Negative); Specific Gravity, Urine 1.025 (1.005-1.030); Urobilinogen,Urine 0.2 EU/dl (0.2)
[2023-08-19 20:32] LABS: HCG,Quantitative 148440 mIU/ml (0-5.42)
[2023-08-19 20:45] LABS: Bacteria,Urine 3+ /lpf; WBC,Urine Occasional #/hpf (0-3)
[2023-08-19 21:13] VITALS: BP 101/70; PULSE 95; O2SAT 100
[2023-08-19 21:49] VITALS: BP 106/72; PULSE 91; RESP 16; TEMP 36.8; O2SAT 98
--- NOTE | 2023-08-26 07:39 | PC.NURSE ---
urine culture discussed with , pt dc on macrobid, ntd
== END 2023-08-19 21:49 | disposition home or self-care (01) ==
PROVIDERS: Emergency Provider Emergency Medicine; PCP Family Medicine
DX: O46.8X1 Other antepartum hemorrhage, first trimester (principal); O23.41 Unspecified infection of urinary tract in pregnancy, first trimester; B95.2 Enterococcus as the cause of diseases classified elsewhere; Z3A.10 10 weeks gestation of pregnancy
CPT/HCPCS: 36415; 76817; 80053; 81001; 84702; 84703; 85025; 86850; 87086; 87088; 87186; 99284

== ENCOUNTER 2023-08-23 14:50 | Outpatient (CLI) | payer OTHER, SELFPAY ==
[2023-08-23 15:36] LABS: Basophils % 0.7 % (0.1-2.0); Eosinophils # 0.1 K/mm3 (0.0-0.4); Hematocrit 35.7 % (37.0-47.0); Hemoglobin 11.6 g/dL (12.2-16.2); Lymphocytes # 1.2 K/mm3 (0.7-4.5); Lymphocytes % 23.8 % (10-50); Mean Corpuscular HGB Conc 32.6 g/dL (31.8-35.4); Mean Corpuscular Hemoglobin 32.1 pg (27.0-31.2); Mean Corpuscular Volume 98.6 fl (81-99); Mean Platelet Volume 8.1 fl (7.4-10.4); Monocytes # 0.3 K/mm3 (0.1-1.0); Monocytes % 4.9 % (1.7-9.3); Neutrophils # 3.5 K/mm3 (1.8-7.8); Neutrophils % 68.6 % (37.0-80.0); Platelet Count 231 K/mm3 (142-424); Red Blood Count 3.63 M/mm3 (4.20-5.40); White Blood Count 5.1 K/mm3 (4.8-10.8)
[2023-08-25 10:13] LABS: Rubella Antibodies, IgG 6.83 index (Immune >0.99)
[2023-08-25 12:18] LABS: HIV Screen 4th Generation wRfx Non Reactive (Non Reactive); Hepatitis B Surface Antigen Negative (Negative)
[2023-08-25 13:11] LABS: Rapid Plasma Reagin Ab Titer Non Reactive titer (NonRea<1:1)
[2023-08-27 14:19] LABS: HCV Ab Reactive (Non Reactive)
== END 2023-08-23 23:59 | disposition home or self-care (01) ==
LOC: LAB 14:51
PROVIDERS: PCP Family Medicine; Visit Provider Nurse Practitioner Obstetrics & Gynecology
DX: O26.892 Other specified pregnancy related conditions, second trimester (principal); Z3A.14 14 weeks gestation of pregnancy
CPT/HCPCS: 36415; 85025; 86593; 86703; 86762; 86850; 87086; 87088; 87186; 87340; G0432

== ENCOUNTER 2023-09-20 09:09 | Outpatient (CLI) | payer OTHER, SELFPAY | END 2023-09-20 23:59 | disposition home or self-care (01) | LOC: LAB.DROPOF 09-21 09:10 | PROVIDERS: PCP Nurse Practitioner Obstetrics & Gynecology; Visit Provider Nurse Practitioner Obstetrics & Gynecology | DX: N39.0 Urinary tract infection, site not specified (principal); B96.20 Unspecified Escherichia coli [E. coli] as the cause of diseases classified elsewhere | CPT/HCPCS: 87086; 87088; 87186 ==

== ENCOUNTER 2023-10-11 16:32 | Emergency (ER) | payer SELFPAY ==
--- NOTE | 2023-10-11 16:42 | PC.NURSE ---
Dr. Riley at BS for pt eval
[2023-10-11 16:49] VITALS: BP 114/63; PULSE 101; RESP 16; TEMP 36.8; O2SAT 99; BMI 23.3
[2023-10-11 16:56] VITALS: BP 114/63; PULSE 89; RESP 16; TEMP 36.8
--- NOTE | 2023-10-11 16:56 | ED_ITS ---
Discharge Plan Disposition Patient Disposition: Home, Self-Care Prescriptions Prescriptions: No Action triamcinolone acetonide 0.1 % cream 1 applic topical BID Qty: 80 0RF nitrofurantoin monohyd/m-cryst [Macrobid] 100 mg capsule 100 mg PO BID 7 Days Qty: 14 0RF Rx Instructions: must administer with a meal/food promethazine 12.5 mg tablet 12.5 mg PO Q6H PRN (Reason: nausea and vomiting) Qty: 30 1RF Classic 28 mg iron- 800 mcg tablet 1 tab PO DAILY Qty: 30 11RF Referrals Follow up/Referrals: Nehemias Barron [Primary Care Provider] - See instructions Activity Restrictions/Add. Instructions Additional Instructions/Restrictions: Please take ulaj-ldo-tzwdaak MiraLAX starting off with half a cap twice a day doubling the dose every 3 days until you are having a soft bowel movement daily. Please drink plenty of fluids as discussed. There is no evidence of any mass or prolapsing organs today. The small amount of blood that you noted in your stool is likely secondary to superficial mucosal tears from the very hard stool that was transient in your rectum. No evidence of any active or significant hemorrhage. Clinical Impressions Clinical Impression: Constipation, Second trimester , External hemorrhoid Discharge ED Provider: Derek Riley General Adult HPI General Chief complaint: Recheck/Abnormal Lab/Rx Stated complaint: bleeding with urination 19 weeks Time Seen by Provider: 10/11/23 16:39 Mode of Arrival: Ambulatory Source of Information: Patient Limitations: No Limitations Description of Symptoms (Recalled from ER Triage Doc. by RN): pt states she is 19wks and has struggled with constipation throughout the entire . 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 pt reports her stomach started convulsing. pt states she then had a hard BM and noticed there was some bright red blood. pt reports she then noticed some tissue between her rectum and vagina. pt reports this is her 7th and that she has [address] Tijerina is her OB. History of Present Illness HPI narrative: Patient is a G7, at 19 weeks gestational age presenting today with multiple complaints. She states she is been very constipated and has been taking a vitamin with iron and that is likely the cause of this. She was at [employer] trying to have a bowel movement states that she had a very large hard stool that was passed and had a small amount of blood associated with it and she felt some crampy abdominal discomfort that has completely resolved at this point. More concerning the low and the reason she came to the emergency department she felt a spot between her rectum and her vagina. She is otherwise asymptomatic at the moment. She states she has not had any vaginal bleeding vaginal discharge or loss of fluid since this episode. Related Data Previous Rx's Medication Instructions Recorded promethazine 12.5 mg tablet 12.5 mg PO Q6H PRN nausea and 08/23/23 vomiting #30 tabs vits no.126-ferrous fum 1 tab PO DAILY #30 tabs 09/16/23 28 mg iron-folic acid 800 mcg tablet (Classic ) nitrofurantoin 100 mg PO BID 7 days #14 caps 09/20/23 monohydrate/macrocrystals 100 mg capsule (Macrobid) triamcinolone acetonide 0.1 % 1 applic topical BID #80 grams 09/20/23 topical cream Allergies Allergy/AdvReac Type Severity Reaction Status Date / Time latex Allergy Mild Hives Verified 10/11/23 16:54 SULFA (sulfonamide) Allergy Intermediate I-RASH Uncoded 09/20/23 14:06 [facility] Disclaimer: The information contained in this section may have been updated after the patient was seen, as this information can be updated by other users. Medical History Anemia Gestational diabetes Anxiety and depression depression Melanoma Cervical dysplasia Surgical History History of appendectomy Hx of dilation and curettage H/O LEEP Family History Grandmother Cancer endometriosis and uterine Stroke Grandfather Cancer bone Kidney disease Social History Smoking Status: Current every day smoker tobacco type: cigarettes packs per day: 1 and e-cigarettes alcohol intake: never substance use type: denies use current occupational status: unemployed Travel in the last 8 weeks: None ROS Obtained: Yes All systems reviewed & no additional complaints except as documented Physical Exam General General appearance: alert Respiratory Respiratory exam: Present normal lung sounds bilaterally Cardiovascular Cardiovascular exam: Present regular rate Abdominal Exam Abdominal exam: Present soft; Absent distention or tenderness Rectal Exam Rectal exam: Present hemorrhoids (Small external hemorrhoid between the rectum and the vagina no evidence of significant mucosal tear or fissure or active bleeding) Neurological Exam Neurological exam: Present alert and oriented X3 Medical Decision Making Cristi Inquiry Pt receiving controlled substance: No Vital Signs: 10/11/23 16:49 Temperature 98.2 F Temperature Source Oral Pulse Rate [Left] 101 H Respiratory Rate 16 Blood Pressure [Right Arm] 114/63 Blood Pressure Mean [Right Arm] 80 Blood Pressure Source [Right Arm] Automatic Cuff Blood Pressure Position [Right Arm] Sitting 02 Sat by Pulse Oximetry 99 Oxygen Delivery Method Room Air Orders (Tests/Meds): ORDERS Category Date Time Status POCUS Point of Care (ER Only) Stat Exams 10/11/23 16:46 Ordered Medical Decision Narrative: 33-year-old female with above history and physical. She has a very small area between her rectum and her vagina that has pink soft tissue that is very mildly redundant likely a very mild soft tissue external hemorrhoid. Is not engorged is not thrombosed. This is not consistent with a mass or other abnormality such as papilloma etc. No evidence of any organ protrusion and significant mucosal bleeding or anal fissure. Her abdominal exam is completely benign. She had a low bit of abdominal cramping right after this large bowel movement was passed. This is not consistent with a perforation or any other intra-abdominal emergency. Limited bedside ultrasound was performed and intrauterine consistent with dates was found with normal heart rate. She has been advised to take MiraLAX to increase her stool softening. 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 Procedures Miscellaneous Procedure Procedure Performed: Limited OB ultrasound Indication: Rectal bleeding Identified structures: [-Uterus -Left adnexa -Right adnexa -Pouch of Tank] Findings: Uterus: Definitive IUP FHR: 138 Right adnexa: No free fluid Left adnexa: No free fluid Cul de sac: Free fluid absent Impression: -IUP: Present - heart rate: Normal -Ectopic : Absent -Free fluid: Absent Images were saved to permanent archive The study was technically adequate CPT Transabdominal: 22712-32 This study was performed by me, and I personally interpreted all images/videos. Based on my clinical judgement, these images were added and did not necessitate further imaging. Critical Care Critical Care Time Critical Care Time: No
== END 2023-10-11 17:00 | disposition home or self-care (01) ==
PROVIDERS: Emergency Provider Student in an Organized Health Care Education/Training Program; PCP Family Medicine
DX: O26.892 Other specified pregnancy related conditions, second trimester (principal); K59.00 Constipation, unspecified; K64.9 Unspecified hemorrhoids; Z3A.19 19 weeks gestation of pregnancy; O99.332 Smoking (tobacco) complicating pregnancy, second trimester; F17.210 Nicotine dependence, cigarettes, uncomplicated; F17.290 Nicotine dependence, other tobacco product, uncomplicated
CPT/HCPCS: 99284

== ENCOUNTER 2023-10-26 13:08 | Outpatient (CLI) | payer OTHER, SELFPAY ==
--- NOTE | 2023-10-26 13:11 | US_ITS ---
PROCEDURE: US OB /MATERNAL DETAIL CLINICAL INDICATION: 20 wk + Anatomy Scan COMPARISON: US US OB TRANSVAGINAL from 08/19/2023 FINDINGS: Transabdominal sonographic images of the pelvis were obtained. From her established due date she is 20 weeks 0 days. Single viable intrauterine gestation. Breech position. Placenta: Posteriorplacenta grade 1. There is an average amount of fluid. The cervix appears satisfactory. Closed and measuring 3.5 cm in length. Complete survey performed and was unremarkable on the submitted images as in PACS. No discrete anomalies identified on survey imaging by technologist. Active fetus. Three-vessel cord with satisfactory umbilical cord insertion. 4- chamber heart noted. Situs, aortic arch, LVOT, RVOT, three-vessel view appear normal. Survey of brain & ventricles Unremarkable. Cerebellum, thalamus, choroid plexus, cisterna magna appear normal. Face and neck survey unremarkable. Profile, nasion, lips and nose appeared normal. Diaphragm and chest views unremarkable. Abdomen: Both kidneys noted and unremarkable. Minimal bilateral renal pelvis dilation measuring 2.6 mm and 3.6 mm. Stomach and bladder noted and satisfactory. Spine: Survey of the spine satisfactory with no anomalies identified nor imaged. Cervical, thoracic, lower spine appear normal. Both arms and legs noted. Amniotic Fluid: Adequate. MVP 4.04 cm. Measurements: Average ultrasound age 20weeks 0 days. Estimated due date by ultrasound age 1203/14/2024. Estimated weight 330g BPD = 19weeks 5days HC = 19weeks 5days AC = 20weeks 4days FL = 19weeks 6days Growth Percentile= 49 Heart Rate = 149bpm Cerebellum = 18weeks 5days Humerus = 20weeks 1day HC/AC is 1.11 FL/BPD is 0.7 FL/AC is 0.21 IMPRESSION: 1. Viable fetus in the breech presentation with a posterior placenta grade 1. 2. The fluid is within normal limits with an MVP 4.04 cm. 3. Anatomical scan appears normal. 4. biometry is consistent with a dates. Dictated by: Andres Tijerina MD 10/26/2023 14:56 Andres Tijerina MD in [place] 10/26/2023 14:56
== END 2023-10-26 23:59 | disposition home or self-care (01) ==
LOC: RAD 13:09
PROVIDERS: PCP Family Medicine; Visit Provider Nurse Practitioner Obstetrics & Gynecology
DX: Z36.3 Encounter for antenatal screening for malformations (principal); O46.90 Antepartum hemorrhage, unspecified, unspecified trimester; Z3A.20 20 weeks gestation of pregnancy; Z72.89 Other problems related to lifestyle
CPT/HCPCS: 76811

== ENCOUNTER 2023-11-03 16:19 | Outpatient (CLI) | payer OTHER, SELFPAY ==
[2023-11-03 18:01] LABS: Adenovirus,PCR Not Detected (NotDetected); Bordetella Pertussis Not Detected (NotDetected); Chlamydophila Pneumoniae, PCR Not Detected (NotDetected); Coronavirus 19, PCR Not Detected (NotDetected); Coronavirus 229E Not Detected (NotDetected); Coronavirus NL63 Not Detected (NotDetected); Coronavirus OC43 Not Detected (NotDetected); Coronovirus HKU1,PCR Not Detected (NotDetected); Human Metapneumovirus Not Detected (NotDetected); Influenza A, PCR Not Detected (NotDetected); Influenza AH1, 2009 Not Detected (NotDetected); Influenza AH1, PCR Not Detected (NotDetected); Influenza AH3,PCR Not Detected (NotDetected); Influenza B, PCR Not Detected (NotDetected); Mycoplasma Pneumoniae, PCR Not Detected (NotDetected); Parainfluenza 1, PCR Not Detected (NotDetected); Parainfluenza 2, PCR Not Detected (NotDetected); Parainfluenza 3, PCR Not Detected (NotDetected); Parainfluenza 4, PCR Not Detected (NotDetected); Respiratory Syncytial Virus Not Detected (NotDetected)
[2023-11-03 21:43] LABS: Rhinovirus/Enterovirus Detected (NotDetected)
== END 2023-11-03 23:59 | disposition home or self-care (01) ==
LOC: LAB.DROPOF 11-04 10:13
PROVIDERS: PCP Family Medicine; Visit Provider Nurse Practitioner
DX: J06.9 Acute upper respiratory infection, unspecified (principal); Z72.0 Tobacco use
CPT/HCPCS: 87581; 87632; 87635; 87798

== ENCOUNTER 2023-11-08 10:15 | Emergency (ER) | payer OTHER, SELFPAY ==
[2023-11-08] VITALS (8 sets, daily range): BP systolic 95–133; BP diastolic 55–79; PULSE 92–114; RESP 16–20; TEMP 36.8–36.9; O2SAT 95–100; BMI 24.3
--- NOTE | 2023-11-08 10:25 | ECG_ITS ---
APPROVED REPORT Exam: Resting ECG HR:113 bpm ECG Measurements Heart Rate 113 AXES MI 126 P 72 QRSd 94 QRS 71 QT 321 T 63 QTc 388 Conclusion SINUS TACHYCARDIA WITH OCCASIONAL VENTRICULAR PREMATURE COMPLEXES MINIMAL ST DEPRESSION [0.025+ mV ST DEPRESSION] No STEMI ABNORMAL RHYTHM ECG Electronically signed by : JANNETH MCKEON, 11/09/2023 07:32:05
--- NOTE | 2023-11-08 10:28 | PC.NURSE ---
Dr. Ashford at bedside
--- NOTE | 2023-11-08 10:38 | CT_ITS ---
FINAL REPORT TECHNIQUE: The patient was injected with IV contrast. Axial images were obtained through the chest in a PE protocol. 3-D reconstruction images were also performed. Individualized dose reduction techniques using automated exposure control or adjustment of the MA and/or KV according to patient's size were employed. CLINICAL HISTORY: cough, tachy, hotn, , hemoptysis COMPARISON: None FINDINGS: Mediastinal vasculature is adequately opacified. No pulmonary artery filling defects are identified to suggest PE. There is no aortic dissection. There is no axillary adenopathy. There is no hilar or mediastinal adenopathy. There is a small soft tissue density in the anterior mediastinum, that likely represents residual thymus. The heart size is normal. There is no pericardial or pleural effusion. Limited images of the upper abdomen are unremarkable. There is a 7 x 5 mm density in the anterior left upper lobe best seen on image #41 and series 5, favored to be postinflammatory in this age group. IMPRESSION: No pulmonary embolus or dissection. 7 x 5 mm density in the anterior left upper lobe as described, favored to be postinflammatory in this age group. Reviewed, Interpreted and Dictated by Luc Samayoa MD Transcribed by Feli Figueroa Authenticated and [facility]
--- NOTE | 2023-11-08 10:41 | ED_ITS ---
Discharge Plan Disposition Patient Disposition: Home, Self-Care Condition: Good Prescriptions Prescriptions: New Zyrtec 10 mg capsule 10 mg PO DAILY Qty: 30 0RF No Action triamcinolone acetonide 0.1 % cream 1 applic topical BID Qty: 80 0RF azithromycin 250 mg tablet See Rx Instructions PO .COMPLEX Qty: 6 0RF Rx Instructions: For 250 mg dose pack: take 500 mg today (day 1), then 250 mg for 4 days (days 2-5) PO dextromethorphan-guaifenesin 60-1,200 mg tablet extended release 12 hr 1 tab PO Q12H Qty: 60 0RF albuterol sulfate 90 mcg/actuation HFA aerosol inhaler 2 puff inhalation Q4-6H PRN (Reason: shortness of breath or wheezing) Qty: 8.5 0RF promethazine 12.5 mg tablet 12.5 mg PO Q6H PRN (Reason: nausea and vomiting) Qty: 30 1RF Classic 28 mg iron- 800 mcg tablet 1 tab PO DAILY Qty: 30 11RF Referrals Follow up/Referrals: Silke Avila APRN [Primary Care Provider] - See instructions Activity Restrictions/Add. Instructions Additional Instructions/Restrictions: You were evaluated in the ER. You are appropriate for discharge at this time. Go up to OB for further evaluation of decreased movement. Take the Zyrtec to help with postnasal drip and reduce cough. Return to the ER with new, worsening, or otherwise concerning symptoms. Clinical Impressions Clinical Impression: Rhinovirus, Cough Print Language Print Language: Yi Discharge ED Provider: Brian Ashford General Adult HPI General Chief complaint: Upper Respiratory Infection Stated complaint: cough congestion racing heart at times 22 weeks pr Time Seen by Provider: 11/08/23 10:21 Mode of Arrival: Ambulatory Source of Information: Patient Limitations: No Limitations Description of Symptoms (Recalled from ER Triage Doc. by RN): Patient is 22 weeks with complaints of cough, congestion, vomiting, and abdomen pain from coughing since . States that she has been seen by her PCP and was prescribed antibiotics. States she has not gotten any better and continues to get worse. History of Present Illness HPI narrative: 33-year-old female who is G7, P2 currently 22 weeks presents to the ER for concerns of cough, congestion, posttussive emesis, and abdominal pain believed to be from significant coughing since . She saw her PCP Tuesday and was given a shot of Rocephin as well as a Z-Rohan which she completed yesterday. Patient states her cough continues to get worse and she has had a few episodes of blood-streaked sputum. Patient is also concerned about decreased movement. She states she is profoundly fatigued and feels shaky due to not sleeping and having this persistent cough. The last time patient had a fever was 5 days ago, she states it was 101. She denies dysuria or hematuria. No vaginal bleeding or discharge. No pelvic pain. Patient used her albuterol inhaler twice today. Related Data Previous Rx's ?Medication ?Instructions ?Recorded promethazine 12.5 mg tablet 12.5 mg PO Q6H PRN nausea and 08/23/23 vomiting #30 tabs vits no.126-ferrous fum 1 tab PO DAILY #30 tabs 09/16/23 28 mg iron-folic acid 800 mcg tablet (Classic ) triamcinolone acetonide 0.1 % 1 applic topical BID #80 grams 09/20/23 topical cream albuterol sulfate 90 mcg/actuation 2 puff inhalation Q4-6H PRN 11/03/23 aerosol inhaler shortness of breath or wheezing #8.5 grams azithromycin 250 mg tablet See Rx Instructions PO .COMPLEX #6 11/03/23 tabs dextromethorphan-guaifenesin ER 60 1 tab PO Q12H #60 tabs 11/03/23 mg-1,200 mg tab,extend release,12hr cetirizine 10 mg capsule (Zyrtec) 10 mg PO DAILY #30 caps 11/08/23 Allergies Allergy/AdvReac Type Severity Reaction Status Date / Time latex Allergy Mild Hives Verified 11/08/23 08:54 SULFA (sulfonamide) Allergy Intermediate I-RASH Uncoded 11/08/23 08:54 [facility] Disclaimer: The information contained in this section may have been updated after the patient was seen, as this information can be updated by other users. Medical History Anemia Gestational diabetes Anxiety and depression depression Melanoma Cervical dysplasia Surgical History History of appendectomy Hx of dilation and curettage H/O LEEP Family History Grandmother Cancer endometriosis and uterine Stroke Grandfather Cancer bone Kidney disease Social History Smoking Status: Current every day smoker tobacco type: cigarettes packs per day: 1 and e-cigarettes alcohol intake: never substance use type: denies use current occupational status: unemployed Travel in the last 8 weeks: None ROS Obtained: Yes All systems reviewed & no additional complaints except as documented Constitutional Constitutional: Reports body ache and Denies fever(s) ENT Ears, Nose, Mouth, and Throat: Reports nasal congestion Cardiovascular Cardiovascular: Reports chest pain (When coughing) and Denies edema Respiratory Respiratory: Reports cough and Reports hemoptysis (Blood-streaked sputum) Gastrointestinal Gastrointestingal: Reports abdominal pain and vomiting (Posttussive); Denies diarrhea or nausea Genitourinary Female Genitourinary: Denies dysuria, Denies hematuria and Denies pelvic pain Physical Exam General General appearance: alert and in no apparent distress Head Head exam: atraumatic and normocephalic Eye Eye exam: Present PERRL and EOMI ENT ENT exam: Present mucous membranes moist Neck Neck exam: Present normal inspection and full ROM Chest Chest inspection: Present symmetric chest wall rise Respiratory Respiratory exam: Present normal lung sounds bilaterally; Absent respiratory distress, wheezes or stridor Cardiovascular Cardiovascular exam: Present normal rhythm and tachycardia Abdominal Exam Abdominal exam: Present soft; Absent distention or tenderness Extremities Exam Extremities exam: Present full ROM Neurological Exam Neurological exam: Present alert and oriented X3; Absent motor sensory deficit Psychiatric Psychiatric exam: Present normal affect and normal mood Skin Skin exam: Present warm and dry Medical Decision Making Medical Records Medical records reviewed: Yes I reviewed the patient's medical records. MR Comment: Family practice provider note from today demonstrates patient was reevaluated in their office and documents improved air movement with rhonchi and wheezes, patient refused EMS and came to ER POV. Cristi Inquiry Pt receiving controlled substance: No Vital Signs: 11/08/23 10:18 11/08/23 10:22 11/08/23 10:32 Temperature 98.2 F Temperature Source Oral Pulse Rate 114 H 104 H Pulse Rate [Radial] 114 H Respiratory Rate 18 20 Blood Pressure 133/79 107/60 L Blood Pressure [Right Arm] 133/79 Blood Pressure Mean Blood Pressure Mean [Right Arm] 97 Blood Pressure Source [Right Arm] Automatic Cuff Blood Pressure Position [Right Arm] Sitting 02 Sat by Pulse Oximetry 96 97 97 Oxygen Delivery Method Room Air 11/08/23 10:39 11/08/23 11:00 11/08/23 11:30 Temperature Temperature Source Pulse Rate 107 H 102 H 95 H Pulse Rate [Radial] Respiratory Rate 19 18 Blood Pressure 107/60 L 121/65 107/55 L Blood Pressure [Right Arm] Blood Pressure Mean 68 Blood Pressure Mean [Right Arm] Blood Pressure Source [Right Arm] Blood Pressure Position [Right Arm] 02 Sat by Pulse Oximetry 96 100 95 Oxygen Delivery Method Room Air 11/08/23 12:00 Temperature Temperature Source Pulse Rate 92 H Pulse Rate [Radial] Respiratory Rate 16 Blood Pressure 95/57 L Blood Pressure [Right Arm] Blood Pressure Mean Blood Pressure Mean [Right Arm] Blood Pressure Source [Right Arm] Blood Pressure Position [Right Arm] 02 Sat by Pulse Oximetry 95 Oxygen Delivery Method Room Air Lab Data Lab Results 11/08/23 10:22: Chlamy pneumoniae PCR Not detected, Adenovirus (PCR) Not detected, B. pertussis DNA (PCR) Not detected, Coronavirus OC43 (PCR) Not detected, Coronavirus HKU1 (PCR) Not detected, Coronavirus 229E (PCR) Not detected, SARS-CoV-2 (PCR) Not detected, Coronavirus NL63 (PCR) Not detected, Human Metapneumovir PCR Not detected, Influenza A (H1) PCR Not detected, Influ A (H1N1/09) PCR Not detected, Influenza A (H3) PCR Not detected, Influenza Type A (PCR) Not detected, Influenza Type B (PCR) Not detected, M. pneumoniae (PCR) Not detected, Parainfluenza 1 (PCR) Not detected, Parainfluenza 2 (PCR) Not detected, Parainfluenza 3 (PCR) Not detected, Parainfluenza 4 (PCR) Not detected, RSV (PCR) Not detected, Entero/Rhino (PCR) Detected A 11/08/23 10:30: WBC 8.9, RBC 3.34 L, Hgb 11.9 L, Hct 33.2 L, MCV 99.4 H, MCH 35.7 H, MCHC 35.9 H, RDW 13.2, Plt Count 170, MPV 8.3, Neut % (Auto) 82.1 H, Lymph % (Auto) 13.0, [place] % (Auto) 3.0, Eos % (Auto) 1.5, Baso % (Auto) 0.4, Neut # (Auto) 7.3, Lymph # (Auto) 1.2, [place] # (Auto) 0.3, Eos # (Auto) 0.1, Baso # (Auto) 0.0, Sodium 137, Potassium 3.4 L, Chloride 106, Carbon Dioxide 26, Anion Gap 8.4, BUN 9, Creatinine 0.50 L, Estimated Creat Clear 170, Estimated GFR 144, Est GFR ( Amer) 174, Glucose 117 H, Lactate 1.4, Calcium 9.5, Total Bilirubin 0.2, AST 26, ALT 17, Alkaline Phosphatase 104, Troponin I < 0.01, Total Protein 7.0, Albumin 3.8, Globulin 3.2, Albumin/Globulin Ratio 1.2, Lipase 131 11/08/23 10:50: Urine Color Yellow, Urine Appearance Sl cloudy, Urine pH 6.5, Ur Specific [place] 1.020, Urine Protein Negative, Urine Glucose (UA) Negative, Urine Ketones Negative, Urine Blood Negative, Urine Nitrate Negative, Urine Bilirubin Negative, Urine Urobilinogen 1.0, Ur Leukocyte Esterase Negative, Urine RBC Occasional, Urine WBC Occasional, Ur Squamous Epith Cells 3-5, Urine Bacteria Trace 11/08/23 10:30 11/08/23 10:30 Orders (Tests/Meds): ED MEDICATIONS Discontinued Medications Generic Name Dose Route Start Last Admin Trade Name Freq PRN Reason Stop Dose Admin Albuterol/Ipratropium 3 ml 11/08/23 11:03 11/08/23 11:15 Ipratropium/Albuterol 3 Ml Neb IH 11/08/23 11:04 3 ml ONCE ONE Administration Lactated Ringer's 1,000 mls @ 999 mls/hr 11/08/23 10:38 11/08/23 10:42 Lactated Ringer's 1000 Ml Bag IV 11/08/23 11:38 999 mls/hr .Q1H1M ONE Administration Iopamidol 70 ml 11/08/23 10:56 07/30/24 10:56 Iopamidol-370 (76%);100ml Bottle IV 11/08/23 10:57 70 ml ONCE ONE Administration Sodium Chloride 50 ml 11/08/23 10:56 11/08/23 10:56 0.9 % Sodium Chloride 50 Ml Vial IV 11/08/23 10:57 50 ml ONCE ONE Administration Sodium Chloride 10 ml 11/08/23 10:56 11/08/23 10:56 Sodium Chloride 0.9% 10ml Syr (Rad Only) IV 11/08/23 10:57 10 ml ONCE ONE Administration ORDERS Category Date Time Status CT angio chest PE protocol Stat Cat Scan 11/08/23 10:38 Completed POCUS Point of Care (ER Only) Stat Exams 11/08/23 10:21 Completed CBC w/Auto Diff [Complete Blood Count Auto Diff] Stat Lab 11/08/23 10:30 Completed CMP [Comprehensive Metabolic Panel] Stat Lab 11/08/23 10:30 Completed Full Resp Panel w/COVID ([facility]) Routine Lab 11/08/23 10:22 Completed Lactic Acid Stat Lab 11/08/23 10:30 Completed Lipase Stat Lab 11/08/23 10:30 Completed Trop I [Troponin I] Stat Lab 11/08/23 10:30 Completed Troponin I Q3H Lab 11/08/23 13:30 Ordered Troponin I Q3H Lab 11/08/23 16:30 Ordered Urinalysis and Microscopic Stat Lab 11/08/23 10:50 Completed Medical Decision Narrative: In summary, this 33-year-old female 22 weeks , G7, P2 presents to the emergency department today with cough, chest pain, abdominal pain, posttussive emesis, occasional blood-streaked sputum, decreased activity. On initial evaluation patient is tachycardic and borderline hypotensive, afebrile, pulmonary exam is clear throughout with good air movement, no peripheral edema, soft, nontender abdomen, no tenderness of the chest. Differential diagnosis includes but is not limited to ACS, PE, pneumonia, bronchitis, viral syndrome, posttussive emesis, electrolyte abnormality, pancreatitis, lactic acidosis, urinary tract infection. Based on these concerns, I ordered broad workup including serum labs, cardiac workup. Patient does have findings concerning for PE including hypercoagulable state since she is , tachycardia, arrhythmia with intermittent PVCs, as well as low blood pressure. She is not hypoxic, however I have high enough concern for PE that I believe CTA PE is an important diagnostic study for this patient. I discussed the risks and benefits with her including the radiation dose to her and baby. The dose from CTA PE at this gestational age is below that which should be teratogenic to baby. There is risks and benefits of repeat study and this was discussed at length with the patient. I did recommend the study given my higher suspicion with all of her clinical findings including hemoptysis. She agreed to the study.. ECG personally interpreted demonstrates sinus tachycardia, occasional PVCs, rate 113, SC and QTc normal, no STEMI. Patient received IV fluids, DuoNeb for treatment. Labs personally reviewed demonstrate trace hypokalemia, good kidney function, lipase normal reassuring against pancreatitis, no transaminitis, UA with only trace bacteria and 3-5 squamous cells. Not consistent with infection. Patient has already been treated with Macrobid and Rocephin for this previously. Viral panel was ordered, did not realize 1 had already been completed on the which was positive for rhino/enterovirus.. CTA PE personally interpreted demonstrates no acute intrathoracic abnormality, no findings of pneumonia, no PE. See radiology read for final interpretation. POCUS demonstrates a live fetus with good cardiac activity. Patient continues to oxygenate well despite her chronic cough. I prescribed Zyrtec for outpatient management since her chronic cough appears to be due to postnasal drip. I discussed this patient with Dr. Young including her findings of trace bacteria in the urinalysis. Dr. Young stated that the hospital UA has an extremely low threshold for cut off of detecting bacteria, and with only trace being found, she would not treat the patient for asymptomatic bacteriuria since she has no symptoms of infection. She agrees with the workup that I completed and my plan for management with Zyrtec. She agrees with the patient going up to OB triage for further evaluation from a /OB standpoint. Patient is comfortable with this plan. Patient was given instructions on symptomatic management, follow up instructions, and return precautions for the emergency department. Patient indicated understanding and was discharged in stable condition and taken directly to OB triage. Procedures Miscellaneous Procedure Procedure Performed: Limited OB ultrasound Indication: Decreased movement Identified structures: Uterus Findings: Uterus: Definitive live IUP FHR: 143 Impression: -IUP: Present - heart rate: 143 Images were saved to permanent archive The study was technically adequate CPT Transabdominal: 82287-39 This study was performed by me, and I personally interpreted all images/videos. Based on my clinical judgement, these images were adequate and did not necessitate further imaging. Critical Care Critical Care Time Critical Care Time: No
--- NOTE | 2023-11-08 10:41 | PC.NURSE ---
called [facility] and let them know pt is 22wk , is aware and still needs PE scan completed with lead apron over abd to shield fetus.
[2023-11-08] MEDS: LACTATED RINGERS 1000ML 1,000 ML 999 ML IV (10:42)
[2023-11-08 10:45] LABS: Adenovirus,PCR Not Detected (NotDetected); Bordetella Pertussis Not Detected (NotDetected); Chlamydophila Pneumoniae, PCR Not Detected (NotDetected); Coronavirus 19, PCR Not Detected (NotDetected); Coronavirus 229E Not Detected (NotDetected); Coronavirus NL63 Not Detected (NotDetected); Coronavirus OC43 Not Detected (NotDetected); Coronovirus HKU1,PCR Not Detected (NotDetected); Human Metapneumovirus Not Detected (NotDetected); Influenza A, PCR Not Detected (NotDetected); Influenza AH1, 2009 Not Detected (NotDetected); Influenza AH1, PCR Not Detected (NotDetected); Influenza AH3,PCR Not Detected (NotDetected); Influenza B, PCR Not Detected (NotDetected); Mycoplasma Pneumoniae, PCR Not Detected (NotDetected); Parainfluenza 1, PCR Not Detected (NotDetected); Parainfluenza 2, PCR Not Detected (NotDetected); Parainfluenza 3, PCR Not Detected (NotDetected); Parainfluenza 4, PCR Not Detected (NotDetected); Respiratory Syncytial Virus Not Detected (NotDetected)
[2023-11-08 10:47] LABS: Basophils % 0.4 % (0.1-2.0); Eosinophils # 0.1 K/mm3 (0.0-0.4); Eosinophils % 1.5 % (0.1-12.0); Hematocrit 33.2 % (37.0-47.0); Hemoglobin 11.9 g/dL (12.2-16.2); Lymphocytes # 1.2 K/mm3 (0.7-4.5); Mean Corpuscular HGB Conc 35.9 g/dL (31.8-35.4); Mean Corpuscular Hemoglobin 35.7 pg (27.0-31.2); Mean Corpuscular Volume 99.4 fl (81-99); Mean Platelet Volume 8.3 fl (7.4-10.4); Monocytes # 0.3 K/mm3 (0.1-1.0); Neutrophils # 7.3 K/mm3 (1.8-7.8); Neutrophils % 82.1 % (37.0-80.0); Platelet Count 170 K/mm3 (142-424); Red Blood Count 3.34 M/mm3 (4.20-5.40); Red Cell Distribution Width 13.2 % (11.5-17.5); White Blood Count 8.9 K/mm3 (4.8-10.8)
[2023-11-08 10:51] LABS: Albumin Level 3.8 g/dl (3.5-5.0); Chloride 106 mmol/L (98-107); Potassium 3.4 mmoL/L (3.5-5.1); Sodium 137 mmol/L (136-145)
--- NOTE | 2023-11-08 10:52 | PC.NURSE ---
pt to ct scan, she was able to given urine sample prior to scanning pt. This was collected and sent to lab.
[2023-11-08 10:53] LABS: Blood Urea Nitrogen 9 mg/dl (7-17); Creatinine Clearance Estimated 170 mL/min (50-200); Estimated Glomerular Filt Rate 144 ml/min (>60); GFR (African American) 174 ML/MIN (>60)
[2023-11-08 10:54] LABS: Alanine Aminotransferase 17 U/L (12-78); Albumin/Globulin Ratio 1.2 (1.1-1.8); Alkaline Phosphatase 104 U/L (38-126); Anion Gap 8.4 mEq/L (5-15); Aspartate Amino Transferase 26 U/L (14-36); Bilirubin,Total 0.2 mg/dl (0.2-1.3); Calcium 9.5 mg/dl (8.4-10.2); Carbon Dioxide 26 mmol/L (22.0-30.0); Globulin 3.2 g/dL (1.3-3.2); Glucose 117 mg/dl (74-100); Lipase 131 U/L (23-300)
[2023-11-08 10:55] LABS: Microscopic, Urine URINE MICROSCOPIC (MICROSCOPIC)
[2023-11-08 10:56] LABS: Lactic Acid 1.4 mmol/L (0.7-2.1)
[2023-11-08] MEDS: SODIUM CHLORIDE 0.9% 10ML SYR (RAD ONLY) 10 ML IV (10:56)
[2023-11-08] MEDS: IOPAMIDOL-370 (76%);100ML BOTTLE 70 ML IV (10:56)
[2023-11-08] MEDS: 0.9 % SODIUM CHLORIDE 50 ML VIAL IV (10:56)
[2023-11-08 10:57] LABS: Appearance,Urine SL CLOUDY (Clear); Bilirubin,Urine Negative (Negative); Blood, Urine Negative (Negative); Color,Urine YELLOW (Yellow); Glucose,Urine (UA) Negative (Negative); Ketones,Urine Negative (Negative); Leukocyte Esterase,Urine Negative (Negative); Nitrate,Urine Negative (Negative); PH,Urine 6.5 (5.0-8.5); Protein,Urine Negative (Negative)
[2023-11-08 11:13] LABS: Bacteria,Urine Trace /lpf; RBC,Urine Occasional #/hpf (0-3); WBC,Urine Occasional #/hpf (0-3)
[2023-11-08 11:14] LABS: Troponin I < 0.01 ng/ml (0.00-0.034)
[2023-11-08] MEDS: IPRATROPIUM/ALBUTEROL 3 ML NEB IH (11:15)
[2023-11-08 12:15] LABS: Rhinovirus/Enterovirus Detected (NotDetected)
== END 2023-11-08 13:30 | disposition home or self-care (01) ==
PROVIDERS: Emergency Provider Emergency Medicine; PCP Nurse Practitioner
DX: R05.9 Cough, unspecified (principal); B34.1 Enterovirus infection, unspecified; R00.0 Tachycardia, unspecified; O26.892 Other specified pregnancy related conditions, second trimester; Z3A.22 22 weeks gestation of pregnancy; O99.332 Smoking (tobacco) complicating pregnancy, second trimester; F17.210 Nicotine dependence, cigarettes, uncomplicated; I49.3 Ventricular premature depolarization
CPT/HCPCS: 71275; 80053; 81001; 83605; 83690; 84484; 85025; 87581; 87632; 87635; 87798; 93005; 96360; 99285; J7120; J7620; Q9967

== ENCOUNTER 2023-11-08 13:32 | Outpatient (CLI) | payer OTHER, SELFPAY ==
[2023-11-08 13:35] VITALS: BP 98/61; PULSE 102; RESP 18; TEMP 36.8; O2SAT 96
[2023-11-08 13:40] VITALS: BP 98/61; PULSE 102; RESP 18; TEMP 36.8; O2SAT 96; BMI 24.3
[2023-11-08 15:20] LABS: Barbiturates Screen,Urine Negative ng/ml (<200); Benzodiazepines Screen,Urine Negative ng/ml (<200)
[2023-11-08 15:21] LABS: Amphetamine/Metha Screen,Urine Negative ng/ml (<1000); Methadone Screen,Urine Negative ng/ml (<300)
[2023-11-08 15:22] LABS: Cannabinoid Screen,Urine Negative ng/ml (<50)
[2023-11-08 15:23] LABS: Cocaine Screen,Urine Negative ng/ml (<300); Opiate Screen,Urine Negative ng/ml (<300)
[2023-11-08 15:24] LABS: Phencyclidine Screen,Urine Negative ng/ml (<25)
== END 2023-11-08 14:40 | disposition home or self-care (01) ==
LOC: OBOUT 13:33 → OB 13:34
PROVIDERS: Visit Provider Obstetrics & Gynecology
DX: O36.8120 Decreased fetal movements, second trimester, not applicable or unspecified (principal); Z3A.22 22 weeks gestation of pregnancy
CPT/HCPCS: 80307

== ENCOUNTER 2023-12-19 12:26 | Outpatient (CLI) | payer OTHER, SELFPAY ==
[2023-12-19 13:11] LABS: Basophils % 0.5 % (0.1-2.0); Eosinophils # 0.1 K/mm3 (0.0-0.4); Eosinophils % 1.4 % (0.1-12.0); Hemoglobin 12.4 g/dL (12.2-16.2); Lymphocytes # 1.5 K/mm3 (0.7-4.5); Lymphocytes % 24.1 % (10-50); Mean Corpuscular HGB Conc 32.6 g/dL (31.8-35.4); Mean Corpuscular Hemoglobin 33.6 pg (27.0-31.2); Mean Corpuscular Volume 103.1 fl (81-99); Mean Platelet Volume 8.6 fl (7.4-10.4); Monocytes # 0.3 K/mm3 (0.1-1.0); Neutrophils # 4.3 K/mm3 (1.8-7.8); Platelet Count 218 K/mm3 (142-424); Red Blood Count 3.69 M/mm3 (4.20-5.40); Red Cell Distribution Width 13.2 % (11.5-17.5); White Blood Count 6.2 K/mm3 (4.8-10.8)
[2023-12-19 13:25] LABS: Glucose,Fasting 102 mg/dl (74-100)
[2023-12-19 18:46] LABS: Glucose 1 Hour 111 mg/dL (74-100)
[2023-12-20 13:29] LABS: Rapid Plasma Reagin Ab Titer Non Reactive titer (NonRea<1:1)
== END 2023-12-19 23:59 | disposition home or self-care (01) ==
LOC: LAB 12:28
PROVIDERS: Visit Provider Nurse Practitioner Obstetrics & Gynecology
DX: Z34.90 Encounter for supervision of normal pregnancy, unspecified, unspecified trimester (principal)
CPT/HCPCS: 36415; 82951; 85025; 86593

== ENCOUNTER 2024-01-02 00:32 | Outpatient (CLI) | payer OTHER, SELFPAY ==
[2024-01-02 01:09] VITALS: BMI 25.6
[2024-01-02 01:18] LABS: Microscopic, Urine URINE MICROSCOPIC (MICROSCOPIC)
[2024-01-02 01:19] LABS: Appearance,Urine CLEAR (Clear); Bilirubin,Urine Negative (Negative); Blood, Urine Negative (Negative); Color,Urine YELLOW (Yellow); Glucose,Urine (UA) Negative (Negative); Ketones,Urine 2+ (Negative); Leukocyte Esterase,Urine Negative (Negative); Nitrate,Urine Negative (Negative); Protein,Urine 1+ (Negative); Specific Gravity, Urine >= 1.030 (1.005-1.030)
[2024-01-02 01:29] VITALS: BP 107/61; PULSE 98; RESP 16; TEMP 36.9; O2SAT 97; BMI 25.6
[2024-01-02 01:46] LABS: Bacteria,Urine 1+ /lpf
[2024-01-02] MEDS: LACTATED RINGERS 1000ML 1,000 ML 999 ML IV (01:59)
[2024-01-02] MEDS: ACETAMINOPHEN 500MG TAB 1000 MG PO (01:59)
[2024-01-02 04:57] LABS: Amphetamine/Metha Screen,Urine Negative ng/ml (<1000); Barbiturates Screen,Urine Negative ng/ml (<200); Benzodiazepines Screen,Urine Negative ng/ml (<200); Cannabinoid Screen,Urine Negative ng/ml (<50); Cocaine Screen,Urine Negative ng/ml (<300); Methadone Screen,Urine Negative ng/ml (<300); Opiate Screen,Urine Negative ng/ml (<300); Phencyclidine Screen,Urine Negative ng/ml (<25)
== END 2024-01-02 02:51 | disposition home or self-care (01) ==
LOC: OBOUT 00:33 → OB 00:34
PROVIDERS: Visit Provider Obstetrics & Gynecology
DX: O47.03 False labor before 37 completed weeks of gestation, third trimester (principal); Z3A.30 30 weeks gestation of pregnancy
CPT/HCPCS: 80307; 81001; G0463; J7120

== ENCOUNTER 2024-02-06 13:05 | Outpatient (CLI) | payer OTHER, SELFPAY ==
--- NOTE | 2024-02-06 13:09 | US_ITS ---
PROCEDURE: US OB BIOPHYSICAL PROFILE CLINICAL INDICATION: SGA COMPARISON: US US OB TRANSVAGINAL from 08/19/2023 US US OB /MATERNAL DETAIL from 10/26/2023 FINDINGS: Transabdominal sonographic images of the uterus were obtained. From her established due date she is 34weeks 5days. The following parameters are obtained: Viable Fetus in the cephalic presentation with a posterior placenta grade 2. Average ultrasound age is 33weeks 5days Estimated weight 2,282g, 5 lb 0 oz Cervix measures 2.6-3.0 cm transvaginally Measurements: heart Rate = 136bpm BPD = 32weeks 6days, 7 percentile HC = 34weeks 3days, 11 percentile AC = 34weeks 3days, 47 percentile FL = 33weeks 0 days, 6 percentile HC/AC is 1.01 FL/BPD is 0.78 FL/AC is 0.21 22 percentile Amniotic fluid index: 11.01cm, MVP 3.56 cm Qualitative AFV:2 Breathing movements: 2 Gross Body Movements: 2 Tone: 2 Biophysical profile score: 8 Doppler evaluation of the umbilical artery: SD ratio: 3.0-4.04 (normal 2.52-3.58) Resistive index: 0.67 No obvious anomalies evident.Kidneys, stomach, four-chamber heart, three-vessel cord appear normal. IMPRESSION: 1. Viable fetus in the cephalic presentation with a posterior placenta grade 2. 2. The fluid is within normal limits with an amniotic fluid index 11.01 cm, MVP 3.56 cm. 3. Biophysical profile is 8/8 with good breathing movement and movement seen. 4. SD ratio normal 3.0-4.04. 5. There has been good interval growth with the fetus currently 22nd percentile. 6. Cervix measures 2.6-3.0 cm transvaginally. 7. Limited anatomical scan appears normal. Dictated by: Andres Tijerina MD 02/06/2024 15:00 Andres Tijerina MD in [place] 02/06/2024 15:00
== END 2024-02-06 23:59 | disposition home or self-care (01) ==
PROVIDERS: PCP Family Medicine; Visit Provider Nurse Practitioner Obstetrics & Gynecology
DX: O36.5930 Maternal care for other known or suspected poor fetal growth, third trimester, not applicable or unspecified (principal); O99.333 Smoking (tobacco) complicating pregnancy, third trimester; Z36.86 Encounter for antenatal screening for cervical length
CPT/HCPCS: 76816; 76819; 76820

== ENCOUNTER 2024-02-19 23:18 | Outpatient (CLI) | payer OTHER, SELFPAY ==
[2024-02-19 23:50] VITALS: BP 104/62; PULSE 109; RESP 16; TEMP 36.9; O2SAT 97; BMI 26.6
[2024-02-20] MEDS: DEXTROSE 5%-LACTATED RINGERS 1,000 ML 999 ML IV (00:10)
[2024-02-20 01:00] LABS: Microscopic, Urine URINE MICROSCOPIC (MICROSCOPIC)
[2024-02-20 01:03] LABS: Appearance,Urine CLEAR (Clear); Bilirubin,Urine Negative (Negative); Blood, Urine Negative (Negative); Color,Urine YELLOW (Yellow); Glucose,Urine (UA) Negative (Negative); Ketones,Urine TRACE (Negative); Leukocyte Esterase,Urine Negative (Negative); Nitrate,Urine Negative (Negative); Protein,Urine Negative (Negative); Specific Gravity, Urine >= 1.030 (1.005-1.030); Urine Pregnancy, HCG Qual. Positive (Negative)
[2024-02-20 01:13] LABS: Bacteria,Urine 1+ /lpf
[2024-02-20 05:03] LABS: Amphetamine/Metha Screen,Urine Negative ng/ml (<1000); Barbiturates Screen,Urine Negative ng/ml (<200); Benzodiazepines Screen,Urine Negative ng/ml (<200); Cannabinoid Screen,Urine Negative ng/ml (<50); Cocaine Screen,Urine Negative ng/ml (<300); Methadone Screen,Urine Negative ng/ml (<300); Opiate Screen,Urine Negative ng/ml (<300); Phencyclidine Screen,Urine Negative ng/ml (<25)
== END 2024-02-20 01:20 | disposition home or self-care (01) ==
LOC: OBOUT 23:19 → OB 23:20
PROVIDERS: PCP Family Medicine; Visit Provider Nurse Practitioner Obstetrics & Gynecology
DX: O60.03 Preterm labor without delivery, third trimester (principal); Z3A.36 36 weeks gestation of pregnancy
CPT/HCPCS: 80307; 81001; 81025; G0463

== ENCOUNTER 2024-02-20 14:15 | Outpatient (CLI) | payer OTHER, SELFPAY | END 2024-02-20 23:59 | disposition home or self-care (01) | LOC: LAB.DROPOF 02-21 07:59 | PROVIDERS: PCP Nurse Practitioner Obstetrics & Gynecology; Visit Provider Nurse Practitioner Obstetrics & Gynecology | DX: Z34.90 Encounter for supervision of normal pregnancy, unspecified, unspecified trimester (principal) | CPT/HCPCS: 86403 ==

== ENCOUNTER 2024-03-07 04:58 | Inpatient (IN) | payer OTHER, SELFPAY ==
--- OUTSIDE RECORDS SUMMARY | 2024-03-07 05:02 | XMS_ITS | Encounter Summary ---
Author Organization [facility] [address] Care Team Providers Care Cow Rider Name Role Phone Nehemias Barron MD Primary Care Provider [phone] Easton Thompson MD Unavailable [phone] Radha Wild TARGET MAN Unavailable [phone] Reason for Visit * Reason Comments Nasal Congestion Runny nose, headache , vomiting, diarrhea. Denies cough, sore throat. Symptoms began x 2 days ago. Encounter Details Date Type Department Care Team (Late st Contact Info) Description 01/21/2023 2:15 PM EDT Office Visit [facility] [address] [address] Zara Contreras MD [address] [place] [id number] Nasal congestion (Primary Dx); Viral URI Social History Tobacco Use Types Packs/Day Years Used Date Smoking Tobacco: Every Day Cigarettes 1 10.5 Started: 04/11/2005; Last attempted to quit: 10/09/2015 Smokeless Tobacco: Never Tobacco Cessation:Ready to Q uit: Not Asked; Counseling Given: Not Answered Alcohol Use Standard Drinks/Week Comments No 0 (1 standard drink = 0.6 oz pur e alcohol) PHQ-2 Answer Date Recorded PHQ-2 Total Score 0 08/24/2021 Sexually Active Control Partners Comments Yes Male Comments Unknown Sex and Gender Information Value Date Recorded Sex Assigned at Not on file Legal Sex Female 7:55 PM EDT Gender Identity Not on file Sexual Orientation Not on file documented as of this encounter Last Filed Vital Signs Vital Sign Reading Time Taken Comments Blood Pressure 102/62 01/21/2023 2:02 PM EDT Pulse 104 01/21/2023 2:02 PM EDT Temperature 36.8 ??C (98.2 ??F) 01/21/2023 2:02 PM ED T Respiratory Rate 16 01/21/2023 2:02 PM EDT Oxygen Saturation 99% 01/21/2023 2:02 PM EDT Inhaled Oxygen Concentration - - Weight 54 kg (119 lb) 01/21/2023 2:02 PM EDT Height 165.1 cm (5' 5 ) 01/21/2023 2:02 PM EDT Body Mass Index 19.8 01/21/2023 2:02 PM EDT documented in this encounter Functional Status * Is the person deaf or does he/she have serious difficulty hearing? Answer Date of Assessment Author No 08/24/2021 2:30 PM EDT Jacqueline Farfan RMA * Is the person blind or does he/she have serious difficulty seeing even when wearing glasses? Answer Date of Assessment Author No 08/24/2021 2:30 PM EDT Jacqueline Farfan RMA * Does this person have serious difficulty walking or climbing stairs? Answer Date of Assessment Author No 08/24/2021 2:30 PM EDT Jacqueline Farfan RMA * Does this person have difficulty dressing or bathing? Answer Date of Assessment Author No 08/24/2021 2:30 PM EDT Jacqueline Farfan RMA * Because of a physical, mental or emotional condition, does this person have difficulty doing errands alone such as visiting a doctor's office or shopping? Answer Date of Assessment Author No 08/24/2021 2:30 PM EDT Jacqueline Farfan RMA documented as of this encounter Mental Status * Because of a physical, mental or emotional condition, does this person have serious difficulty concentrating, remembering or making decisions? Answer Entry Date Author No 08/24/2021 2:30 PM EDT Jacqueline Farfan RMA documented in this encounter Patient Instructions * Attachments The following attachments cannot be sent through Care Everywhere. * Viral Upper Respiratory Infection Discharge Instructions, Adult ([place]ux[place]) documented in this encounter Progress Notes * Zara Contreras MD - 01/21/2023 2:15 PM EDT SERVICE Urgent Care Medicine Chief Complaint Patient presents with ??? Nasal Congestion Runny nose, headache, vomiting, diarrhea. Denies cough, sore throat. Symptoms began x 2 days ago. HPI Bonny Olivares is a 32 y.o. female presents to urgent care for evaluation of congestion and rhinorrhea. Patient reports symptoms started 2 to 3 days ago with congestion, rhinorrhea, vomiting, diarrhea. Vomiting diarrhea has resolved today. No cough or sore throat. Endorses shortness of breath due toinability to breathe out of her nose. Reports chest tightness yesterday that is since resolved. No fevers or chills. No known sick contacts. Subjective Patient Active Problem List Diagnosis ??? Syncope, vasovagal ??? RA (rheumatoid arthritis) (HCC) ??? Family history of cervical cancer ??? Cigarette nicotine dependence without complication ??? 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 MDD (major depressive disorder), recurrent episode, moderate (HCC) ??? History of cervical dysplasia ??? History of asthma ??? Seizure disorder (HCC) ??? Chronic hepatitis C without hepatic coma (HCC) ??? History of gestational diabetes mellitus (GDM) Current Outpatient Medications on File Prior to Visit Medication Sig Dispense Refill ??? loratadine/pseudoephedrine (CLARITIN-D 12 HOUR ORAL) Take by mouth. ??? albuterol (PROVENTIL HFA;VENTOLIN HFA) 90 mcg/actuation Inhl HFA Aerosol Inhaler Inhale 2 Puffsinto the lungs every 6 hours as needed for Wheezing. (Patient not taking: Reported on 01/21/2023) ??? levETIRAcetam (KEPPRA) 750 mg Oral Tablet Take 2 Tabs by mouth 2 times daily. (Patient not taking: Reported on 10/11/2021) 120 Tab 12 ??? ondansetron (ZOFRAN-ODT) 4 mg Oral Tablet, Rapid Dissolve Take 1 Tablet by mouth every 6 hours as needed for Nausea. (Patient not taking: Reported on 01/21/2023) 20 Tablet 0 No current facility-administered medications on file prior to visit. Allergies Allergen Reactions ??? Latex Rash ??? Citalopram Hives ??? Effexor [Venlafaxine] Nausea And Vomiting and Other (See Comments) Shaky, lightheaded ??? Sulfa (Sulfonamide Antibiotics) Swelling and Rash throat closes up, rash, and red everywhere Social Social History Socioeconomic History ??? Marital status: Single Spouse name: None ??? Number of children: None ??? Years of education: None ??? Highest education level: None Tobacco Use ??? Smoking status: Every Day Current packs/day: 0.00 Average packs/day: 1 pack/day for 10.5 years (10.5 ttl pk-yrs) Types: Cigarettes Start date: 04/11/2005 Last attempt to quit: 10/09/2015 Years since quittin.2 ??? Smokeless tobacco: Never Vaping Use ??? Vaping Use: Never used Substance and Sexual Activity ??? Alcohol use: No ??? Drug use: Yes Types: Cocaine Comment: last used 02/2020 ??? Sexual activity: Yes Partners: Male Family History Problem Relation Age of Onset ??? Colon Polyps Mother ??? Colon Polyps Father ??? Cancer Maternal Grandmother melanoma ??? Diverticulitis Maternal Grandmother ??? Diverticulitis Maternal Grandfather ??? Anesth Problems Neg Hx Review of Systems Constitutional: Negative for chills and fever. HENT: Positive for congestion and rhinorrhea. Respiratory: Positive for cough. Negative for shortness of breath. Cardiovascular: Negative for chest pain. Gastrointestinal: Positive for diarrhea and vomiting. Objective Vitals: 01/21/23 1402 BP: 102/62 BP Location: Left arm Patient Position: Sitting Pulse: 104 Resp: 16 Temp: 98.2 ??F (36.8 ??C) TempSrc: Oral SpO2: 99% Weight: 119 lb (54 kg) Height: 5' 5 (1.651 m) Physical Exam Vitals and nursing note reviewed. Constitutional: General: She is not in acute distress. HENT: Head: Normocephalic and atraumatic. Right Ear: Tympanic membrane normal. Left Ear: Tympanic membrane normal. Mouth/Throat: Mouth: Mucous membranes are moist. Pharynx: No oropharyngeal exudate or posterior oropharyngeal erythema. Eyes: Conjunctiva/sclera: Conjunctivae normal. Cardiovascular: Rate and Rhythm: Normal rate and regular rhythm. Pulmonary: Effort: Pulmonary effort is normal. Breath sounds: Normal breath sounds. Musculoskeletal: General: Normal range of motion. Cervical back: Normal range of motion. Skin: General: Skin is warm and dry. Capillary Refill: Capillary refill takes less than 2 seconds. Neurological: Mental Status: She is alert and oriented to person, place, and time. Results for orders placed or performed in visit on 01/21/23 POCT RAPID STREP A Result Value Ref Range Strep A Ag None Detected None Detected Pos/Neg Lot Number [id number] Expiration Date 05/05/24 SeriAl # Control Line Yes YES/NO POCT INFLUENZA A/B Result Value Ref Range Influenza A Ag NEGATIVE Influenza B Ag NEGATIVE Lot Number [id number] Expiration Date 11/08/24 Flu Blue Control Line (positive internal control) Yes Clear Background (negative internal control) Yes Yes/No POCT SARS-COV-2 RNA SEP Result Value Ref Range COV19 RNA POCT Negative Negative Narrative The ID NOW is an isothermal nucleic acid amplification assay used to detect nucleic acid from SARS-CoV-2 viral RNA and is intended for use under FDA Emergency Use Authorization only. Negative resultsdo not preclude SARS-CoV-2 infection and should not be used as the sole basis for patient management decisions. Negative results must be combined with clinical observations, patient history, and epidemiological information. Recommend confirmation using alternate method if a negative result is inconsistent with clinical signs and symptoms or if necessary for patient management. [facility] ID NOW Provider Fact Sheet: https://www.fda.gov/media/855118/download [facility] ID NOW Patient Fact Sheet: https://www.fda.gov/media/067531/download POCT URINE TELCOR Result Value Ref Range Preg Test, Ur Negative No results found. Assessment and Plan Bonny was seen today for nasal congestion. Diagnoses and all orders for this visit: Nasal congestion - POCT RAPID STREP A - STREP A DNA; Future - PERFORM ID NOW COVID TEST - POCT INFLUENZA A/B - POCT SARS-COV-2 RNA SEP - POCT URINE TELCOR Viral URI COURSE, MEDICAL DECISION MAKING, & PLAN 32 y.o. female seen today for evaluation of congestion, rhinorrhea, vomiting, diarrhea. Afebrile and hemodynamically stable, saturating well on room air. COVID, flu, strep negative. Vomiting diarrheahave since resolved. Discussed with patient likely represents viral illness. Discussed supportive cares at home. Discussed return precautions. Given instructions on conservative care for this condition and signs and symptoms to follow-up on immediately. F/u: with primary care physician or return to urgent care if symptoms persist No follow-ups on file. Appropriate PPE for the presenting complaint was donned prior to evaluation. This chart was completed using [employer] voice recognition technology and may contain unintended errors. Educated patient regarding the care plan and instructions listed on the After Visit Summary [AVS] for today's visit. They verbalized full understanding of the care plan and instructions given on the AVS for today's visit. Zara Contreras MD documented in this encounter Miscellaneous Notes * Patient Instructions - Zara Contreras MD - 01/21/2023 2:15 PM EDT Your rapid strep is negative, strep culture is pending; if positive we will notify you documented in this encounter Plan of Treatment Not on file documented as of this encounter Goals Goal Patient Goal Type Associated Problems Recent Progress Patient-Stated? Author Maintain a healthy diet, exercise regularly and maintain an ideal body weight General No Shraddha Dolan LPN Stay Tobacco Free Lifestyle No Shraddha Dolan LPN documented as of this encounter Procedures Procedure Name Priority Date/Time Associated Diagnosis Comments STREP A DNA Routine 01/21/2023 2:25 PM EDT Nasal congestion POCT URINE TELCOR Routine 01/21/2023 2:16 PM EDT Nasal congestion POCT INFLUENZA A/B Routine 01/21/2023 2: 11 PM EDT Nasal congestion POCT RAPID STREP A Routine 01/21/2023 2: 11 PM EDT Nasal congestion POCT SARS-COV-2 RNA SEP Routine 01/21/2023 2:02 PM EDT Nasal congestion documented in this encounter Results * STREP A DNA (01/21/2023 2:25 PM EDT) [facility] Strep A DNA Not Detected Not Detected 01/22/2023 2:30 AM EDT [facility] [employer] Comment:Not Detected results do not preclude Streptococcus pyogenes infection and should not be used for the sole basis for treatment or other patient management decisions. A result of Not Detected does not rule out the presence of Group A Streptococcus DNA in concentrations below the level of detection of the assay. Swab SPECIMEN FROM THROAT / Unknown 01/21/2023 2:25 PM EDT 01/21/2023 2:25 PM EDT Narrative [facility] [employer] - 01/22/2023 2:30 AM EDT Test methodology by loop-mediated isothermal DNA amplification (LAMP). us Zara Contreras MD MICROBIOLOGY - GENERAL ORDERA BLES Final Result [facility] [employer] [address], [place] [address] * POCT URINE TELCOR (01/21/2023 2:16 PM EDT) [facility] Preg Test, Ur Negative 01/21/2023 2:23 PM EDT [facility] Urine URINE SPECIMEN COLLECTION / Unknown 01/21/2023 2:16 PM EDT 01/21/2023 2:23 PM EDT us Zara Contreras MD POINT OF CARE TEST ORDERABLES Final Result [place] [id number] [place] [address] * POCT INFLUENZA A/B (01/21/2023 2:11 PM EDT) [facility] Influenza A Ag NEGATIVE SEP OFFICE Influenza B Ag NEGATIVE SEP OFFICE Lot Number [id number] SEP OFFICE Expiration Date 11/08/24 SEP OFFICE Flu Blue Control Line (positive internal control) Yes SEP OFFICE Clear Background (negative internal control) Yes Yes/No SEP OFFICE 01/21/2023 2:11 PM EDT us Zara Cotnreras MD POINT OF CARE TEST ORDERABLES Final Result SEP OFFICE * POCT RAPID STREP A (01/21/2023 2:11 PM EDT) Strep A Ag None Detected None Detected Pos/Neg SEP OFFICE Lot Number [id number] SEP OFFICE Expiration Date 05/05/24 SEP OFFICE SeriAl # SEP OFFICE Control Line Yes YES/NO SEP OFFICE 01/21/2023 2:11 PM EDT us Zara Contreras MD POINT OF CARE TEST ORDERABLES Final Result Performing Organization Address [facility] de Phone Number SEP OFFICE * POCT SARS-COV-2 RNA SEP (01/21/2023 2:02 PM EDT) COV19 RNA POCT Negative Negative 01/21/2023 2:21 PM EDT [facility] Swab NASAL / Unknown 01/21/2023 2 :02 PM EDT 01/21/2023 2:21 PM EDT Narrative [facility] - 01/21/2023 2:21 PM EDT The ID NOW is an isothermal nucleic acid amplification assay used to detect nucleic acid from SARS-CoV-2 viral RNA and is intended for use under FDA Emergency Use Authorization only. ??Negative results do not preclude SARS-CoV-2 infection and should not be used as the sole basis for patient management decisions. ??Negative results must be combined with clinical observations, patient history, and epidemiological information. ??Recommend confirmation using alternate method if a negative result is inconsistent with clinical signs and symptoms or if necessary for patient management. [facility] ID NOW Provider Fact Sheet: https://www.fda.gov/media/675348/download [facility] ID NOW Patient Fact Sheet: ??https://www.fda.gov/media/867598/download Zara Contreras MD POINT OF CARE TEST ORDERABLES Final Result [facility] [address] [place], [place] [id number] documented in this encounter Visit Diagnoses Diagnosis Nasal congestion- Primary Other diseases of nasal cavity and sinuses Viral URI Acute upper respiratory infections of unspecified site documented in this encounter Historical Medications * This list may reflect changes made after this encounter. loratadine/pseudoe phedrine (CLARITIN-D 12 HOUR ORAL) Take by mouth. added in this encounter Orders Nursing Count Last Ordered Date First Orde red Date PERFORM ID NOW COVID TEST 1 01/21/2023 documented in this encounter Care Teams Cow Rider Relationship Specialty Start Date End Date Nehemias Barron MD [address] [place] [address] PCP - General 12/01/10 Easton Thompson MD [address] [place] [address] [address] [place] [address] Physician Obstetrics & Gynecology 01/29/14 Radha Wild APRN [address] [place] [address] Nurse Practitioner 11/04/15 documented as of this encounter
--- OUTSIDE RECORDS SUMMARY | 2024-03-07 05:02 | XMS_ITS | Encounter Summary ---
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 DRUG PANEL Routine 04/25/2009 10:16 AM EST URINALYSIS Routine 04/25/2009 6:30 AM EST OPIATE CONFIRM Routine 04/25/2009 6:30 AM EST DRUG ABUSE SCREEN, URINE Routine 04/25/2009 6:30 AM EST TEST URINE Routine 04/25/2009 6:30 AM EST documented in this encounter Results * GC DNA: Urine (04/26/2009 11:21 AM EST) GC DNA Neg [facility] Comment: Greater than 60mL of urine submitted; exceeds recommended testing volume. May affect results. Urine specimen (specimen) 04/26/2009 11:21 AM EST 04/26/2009 11:21 AM EST Narrative [facility] - 04/28/2009 1:22 PM EST Select Specimen Type->Urine Debbi Reynoso M.D. MICROBIOLOGY - GENERAL ORDE RABLES Final Result Performing Organization Address City/[facility] Co de Phone Number [facility] * Chlamydia DNA: Urine (04/26/2009 11:21 AM EST) CHLAMYDIA DNA Neg [facility] Comment: Greater than 60mL of urine submitted; exceeds recommended testing volume. May affect results. Urine specimen (specimen) 04/26/2009 11:21 AM EST 04/26/2009 11:21 AM EST Narrative [facility] - 04/28/2009 1:22 PM EST Select Specimen Type->Urine Debbi Reynoso M.D. MICROBIOLOGY - GENERAL ORDE RABLES Final Result [facility] * Lipid Profile W/ HDL (04/26/2009 6:10 AM EST) HDL CHOLESTEROL 55 24 - 74 mg/dL [facility] CHOLESTEROL LEVEL 136 101 - 215 mg/dL [facility] TRIGLYCERIDES 42 35 - 134 mg/dL [facility] LDL CHOLESTEROL 73 70 - 120 mg/dL [facility] Blood specimen (specimen) 04/26/2009 6:10 AM EST 04/27/2009 11:10 AM EST Debbi Reynoso M.D. CHEMISTRY ORDERABLES Final Result Performing Organization Address [facility] de Phone Number [facility] * Insulin (04/26/2009 6:10 AM EST) [facility] INSULIN 12.9 mcunit/mL [facility] Comment: Insulin Reference Ranges Units: ??mcunit/mL Infants and prepubertal children : ? Fasting ?<2 - 13 Pubertal children and adults : ? Fasting ?<2 - 17 Adults : ?2 hours post meal ?7.6 - 26.0 ?2 hours post glucose ?15.0 - 53.0 Contact Division of Endocrinology for assistance in result interpretation and additional information of Insulin levels during oral Glucose Tolerance tests. Blood specimen (specimen) 04/26/2009 6:10 AM EST 04/26/2009 10:46 AM EST Debbi Reynoso M.D. CHEMISTRY ORDERABLES Final Result Performing Organization Address City/[facility]/ZIP Co de Phone Number [facility] * GGT (04/26/2009 6:10 AM EST) [facility] GGT 16 6 - 34 unit/L [facility] Blood specimen (specimen) 04/26/2009 6:10 AM EST 04/26/2009 10:46 AM EST Debbi Reynoso M.D. CHEMISTRY ORDERABLES Final Result Performing Organization Address [facility] de Phone Number [facility] * Basic Metabolic Panel (Na,K,Cl,CO2,BUN,Creat,Gluc,Ca) (04/26/2009 6:10 AM EST) SODIUM LEVEL 143 137 - 145 mmol/L [facility] POTASSIUM LEVEL 5.0 3.6 - 5.0 mmol/L [facility] CHLORIDE LEVEL 101 98 - 107 mmol/L [facility] CO2 LEVEL 29 22 - 30 mmol/L [facility] ANION GAP 13 4 - 15 mmol/L [facility] BUN 16 7 - 20 mg/dL [facility] CREATININE LEVEL 0.8 0.6 - 1.1 mg/dL [facility] B/C RATIO 21 <=25 [facility] GLUCOSE LEVEL 87 65 - 105 mg/dL [facility] CALCIUM 9.9 8.8 - 10.7 mg/dL [facility] Blood specimen (specimen) 04/26/2009 6:10 AM EST 04/26/2009 10:46 AM EST Debbi Reynoso M.D. CHEMISTRY ORDERABLES Final Result Performing Organization Address [facility] de Phone Number [facility] * (ABNORMAL) CBC (With Platelets) (04/26/2009 6:10 AM EST) WBC 3.9(L) 4.5 - 13.0 K/mcL [facility] RBC 3.87(L) 4.10 - 5.10 M/mcL [facility] HGB 12.4 12.0 - 16.0 gm/dL [facility] HCT 34.4(L) 36.0 - 46.0 % [facility] MCV LEVEL 88.9 78.0 - 94.0 fL [facility] MCH LEVEL 32.1 25.0 - 35.0 pg [facility] MCHC LEVEL 36.1 31.0 - 37.0 gm/dL [facility] RDW 11.0 <=14.6 % [facility] PLATELET 218 135 - 466 K/mcL [facility] Blood specimen (specimen) 04/26/2009 6:10 AM EST 04/26/2009 10:46 AM EST Debbi Reynoso M.D. HEMATOLOGY ORDERABLES Final Result Performing Organization Address [facility] de Phone Number [facility] * Hepatic Profile (no GGT) (04/26/2009 6:10 AM EST) Pathologist [facility] ALBUMIN LEVEL 4.2 3.7 - 5.6 gm/dL [facility] TOTAL PROTEIN LEVEL 7.8 6.3 - 8.6 gm/dL [facility] AST 26 10 - 30 unit/L [facility] ALT <6 5 - 35 unit/L [facility] ALK PHOS 81 65 - 525 unit/L [facility] BILI CONJUGATED 0.0 0.0 - 0.3 mg/dL [facility] BILI UNCONJUGATED 0.4 0.0 - 1.1 mg/dL [facility] A/G RATIO 1 1 - 2 [facility] GLOBULIN 3.6 gm/dL [facility] Blood specimen (specimen) 04/26/2009 6:10 AM EST 04/26/2009 10:46 AM EST Debbi Reynoso M.D. CHEMISTRY ORDERABLES Final Result Performing Organization Address [facility] de Phone Number [facility] * Genetic Pharmacology Drug Panel: Cytobrush (04/25/2009 10:16 AM EST) Pathologist [facility] PHARMACOGENETI CS, PSYCH PANEL [facility] PHARMACOGENETI CS, PSYCH PANEL See Link [facility] Papanicolaou smear specimen (specimen) 04/25/2009 10:16 AM EST 04/25/2009 10:51 AM EST Raquel Rush M.D. GENETICS ORDERABL ES Final Result Performing Organization Address [facility] Co de Phone Number [facility] * OPIATE CONFIRM (04/25/2009 6:30 AM EST) Pathologist [facility] OPIATE CONFIRM Present Absent [facility] Comment: Test Performed At: ?[facility] ?Department of Labortory Medicine ?[address] ?[place], [place] ??[address] Urine specimen (specimen) 04/25/2009 6:30 AM EST 04/25/2009 8:18 AM EST Raquel Rush M.D. CHEMISTRY ORDERAB LES Final Result [facility] * (ABNORMAL) Drug Abuse Screen, Urine (04/25/2009 6:30 AM EST) AMP U RES 0.04 0.00 - 1.00 mcg/mL [facility] AMP U INT None Detected None Detected [facility] SAHRA U RES 0.00 0.00 - 0.20 mcg/mL [facility] SAHRA U INT None Detected None Detected [facility] BIA U RES 24 0 - 200 ng/mL [facility] BIA U INT None Detected None Detected [facility] JANET U RES 26 0 - 50 ng/mL [facility] JANET U INT None Detected None Detected [facility] KIKI U RES 0.01 0.00 - 0.30 mcg/mL [facility] KIKI U INT None Detected None Detected [facility] OPI U RES 728(H) 0 - 300 ng/mL [facility] OPI U INT Presumptive Pos(A) None Detected [facility] PCP U RES 0 0 - 25 ng/mL [facility] PCP U INT None Detected None Detected [facility] Comment: Specimen: ??Urine Drugs of Abuse are reported as presumed positive if above the cutoff. Sample is then sent for confirmation. DRUG ?CUT-OFF Amphetamines ? 1.0 ?? mcg/ml Barbiturates ? 0.2 ?? mcg/ml Benzodiazapines ? 200 ??ng/ml Cannabinoids ? 50 ??ng/ml Cocaine ?0.3 ??mcg/ml Opiates ?300 ??ng/ml PCP ? 25 ??ng/ml Urine specimen (specimen) 04/25/2009 6:30 AM EST 04/25/2009 8:18 AM EST Narrative [facility] - 04/25/2009 10:08 AM EST On admission Raquel Rush M.D. URINE ORDERABLES Final Result Performing Organization Address [facility] de Phone Number [facility] * Urinalysis (04/25/2009 6:30 AM EST) U APPEARANCE Clear Clear [facility] U COLOR Straw Yellow [facility] U GLUCOSE Neg Neg [facility] U BILI Neg Neg [facility] U KETONES Neg Neg [facility] SPECIFIC GRAVITY BY REFRACTOMETRY 1.016 1.002 - 1.030 [facility] U BLOOD Neg Neg [facility] U PH 6.0 5.0 - 8.0 [facility] U PROTEIN Neg Neg [facility] U UROBILINOGEN <2.0 0.2 - 1.0 mg/dL [facility] U NITRITE Neg Neg [facility] U LEUKOCYTE KELSIE Neg Neg [facility] Urine specimen (specimen) 04/25/2009 6:30 AM EST 04/25/2009 8:18 AM EST Narrative [facility] - 04/25/2009 9:19 AM EST Upon admission, give fluids if necessary Raquel Rush M.D. URINE ORDERABLES Final Result Performing Organization Address [facility] de Phone Number [facility] * Test Urine (04/25/2009 6:30 AM EST) U PREG Negative Negative [facility] Urine specimen (specimen) 04/25/2009 6:30 AM EST 04/25/2009 8:18 AM EST Narrative [facility] - 04/25/2009 8:51 AM EST Upon admission. ??Female patients >/= 11 y/o. Raquel Rush M.D. URINE ORDERABLES Final Result [facility] documented in this encounter Visit Diagnoses Diagnosis Adjustment disorder with depressed mood- Primary Intentional acetaminophen overdose Poisoning by aromatic analgesics, not elsewhere classified Bronchitis Bronchitis, not specified as acute or chronic Contraceptive management Unspecified contraceptive management Parent-child relational problem Counseling for parent-child problem, unspecified Sinus infection Unspecified sinusitis (chronic) Suicide attempt by inadequate means Suicide and self-inflicted injury by unspecified means documented in this encounter Administered Medications Inactive Administered Medications - up to 3 most recent administrations Medication Order MAR Action Action Date Dose Rate Site albuterol (PROAIR HFA) 108 (90 BASE) MCG/ACT HFA inhaler 4 Puff 4 puff, Inhalation, 3 TIMES DAILY, First dose on Tue04/25/09 at 1603, For 5 days, Label for home use. Mom gave consent Given 04/28/2009 3:06 PM EST 4 puffs Given 04/28/2009 9:12 AM EST 4 puffs Given 04/27/2009 8:36 PM EST 4 puffs cefdinir (OMNICEF) capsule 600 mg 600 mg, Oral, 1 TIME DAILY, First dose on Tue04/24/09 at 2243, For 14 days Given 04/24/2009 10:43 PM EST 600 mg cefdinir (OMNICEF) capsule 600 mg 600 mg, Oral, 1 TIME DAILY, First dose (after last modification) on Tue04/25/09 at 0900, For 9 doses Given 04/28/2009 9:00 AM EST 600 mg Given 04/27/2009 9:50 AM EST 600 mg Given 04/26/2009 10:21 AM EST 600 mg clarithromycin (BIAXIN) tablet 1,000 mg 1,000 mg, Oral, 1 TIME DAILY, First dose on Tue04/24/09 at 2245, For 10 days Given 04/24/2009 10:45 PM EST 1,000 m g clarithromycin (BIAXIN) tablet 1,000 mg 1,000 mg, Oral, 1 TIME DAILY, First dose (after last modification) on Tue04/25/09 at 0900, For 9 doses Given 04/25/2009 11:46 AM EST 1,000 mg diphenhydrAMINE (BENADRYL) tablet 25 mg 25 mg, Oral, EVERY 4 HOURS NEEDED, sleep, and agitation, Starting on Patti 04/24/09 at 2229, 5 MG/KG/DAY IN DIVIDED DOSES Q4H, NOT TO EXCEED 300 MG/DAY Given 04/25/2009 1:41 AM EST 25 mg fluticasone hfa (FLOVENT HFA) 220 MCG/ACT inhaler 1 Puff 1 puff, Inhalation, 2 TIMES DAILY, First dose on Tue04/25/09 at 2100, For 7 days, Label for home use. Mom gave consent. Given 04/28/2009 9:12 AM EST 1 puff Given 04/27/2009 8:36 PM EST 1 puff Given 04/27/2009 11:51 AM EST 1 puff guaiFENesin-dextromethorphan (ROBITUSSIN-DM) 10-100 MG/5ML syrup 10 mL 10 mL (20 mg), Oral, EVERY 6 HOURS NEEDED, cough, Starting on Tue04/25/09 at 1600 Given 04/26/2009 8:45 PM EST 10 mL documented in this encounter Active and Recently Administered Medications Times are shown in EST. Scheduled Medication Order 04/26/2009 04/27/2009 04/28/2009 albuterol (PROAIR HFA) 108 (90 BASE) MCG/ACT HFA inhaler 4 Puff (CANCELED) 4 puff, Inhalation, 3 TIMES DAILY, First dose on Tue04/25/09 at 1603, For 5 days, Label for home use. Mom gave consent 1021 (Given - Provider: Mary Fields R.N. - Comment: pt asleep)4593 (Given - Provider: Syklar Whipple R.N. - Comment: Pt. visiting with family)1 (Given - Provider: Skylar Whipple R.N.) 0924 (Given - Provider: Kandy Soler R.N. - Comment: pt asleep)1554 (Given - Provider: Awa Marion R.N.)2035 (Given - Provider: Awa Marion R.N.) 0912 (Given - Provider: Queta Salazar R.N.)1506 (Given - Provider: Queta Salazar R.N.) cefdinir (OMNICEF) capsule 600 mg (CANCELED) 600 mg, Oral, 1 TIME DAILY, First dose (after last modification) on Tue04/25/09 at 0900, For 9 doses 1021 (Given - Provider: Mary Fields R.N. - Comment: pt asleep) 0950 (Given - Provider: Kandy Soler R.N. - Comment: pt asleep) 0900 (Given - Provider: Queta Salazar R.N.) fluticasone hfa (FLOVENT HFA) 220 MCG/ACT inhaler 1 Puff (CANCELED) 1 puff, Inhalation, 2 TIMES DAILY, First dose on Tue04/25/09 at 2100, For 7 days, Label for home use. Mom gave consent. 1021 (Given - Provider: Mary Fields R.N. - Comment: pt asleep)2045 (Given - Provider: Skylar Whipple R.N.) 1151 (Given - Provider: Kandy Soler R.N. - Comment: pt unavailable)2035 (Given - Provider: Awa Marion R.N.) 0912 (Given - Provider: Queta Salazar R.N.) PRN Medication Order 04/26/2009 04/27/2009 04/28/2009 guaiFENesin-dextromethorphan (ROBITUSSIN-DM) 10-100 MG/5ML syrup 10 mL (CANCELED) 10 mL (20 mg), Oral, EVERY 6 HOURS NEEDED, cough, Starting on Tue04/25/09 at 1600 2044 (Given - Provider: Skylar Whipple R.N. - Comment: cough-effective @ 2145) documented in this encounter Care Teams Face Worker Relationship Specialty Start Date End Date Nehemias Barron M.D. [place] [phone] PCP - General 04/24/09 documented as of this encounter
--- OUTSIDE RECORDS SUMMARY | 2024-03-07 05:02 | XMS_ITS | Encounter Summary ---
Author Organization [place] [address] Care Team Providers Care Field Merchandiser Name Role Phone Nehemias Barron MD Primary Care Provider [phone] Easton Thompson MD Unavailable [phone] Radha Wild APRN Unavailable [phone] Encounter Details Date Type Department Care Team (Latest Contact Info) Description 07/29/2023 2:24 PM EDT - 07/29/2023 11:59 PM EDT Hospital Encounter [facility] [address] [address] , unspecified gestational age (Primary Dx) Discharge Disposition: Home or Self Care Social History Tobacco Use Types Packs/Day Years Used Date Smoking Tobacco: Every Day Cigarettes 1 10.5 Started: 04/11/2005; Last attempted to quit: 10/09/2015 Smokeless Tobacco: Never Alcohol Use Standard Drinks/Week Comments No 0 [...] on file documented as of this encounter Functional Status * Is the [...] Jacqueline Farfan RMA documented in this encounter Medications at Time of Discharge albuterol (PROVENTIL HFA;VENTOLIN HFA) 90 mcg/actuation Inhl HFA Aerosol Inhaler Inhale 2 Puffs into the lungs every 6 hours as needed for Wheezing. levETIRAcetam (KEPPRA) 750 mg Oral TabletIndications: Seizure disorder (HCC) Take 2 Tabs by mouth 2 times daily. 120 Tab 12 10/15/2020 loratadine/pseudoe phedrine (CLARITIN-D 12 HOUR ORAL) Take by mouth. ondansetron (ZOFRAN-ODT) 4 mg Oral Tablet, Rapid DissolveIndication s:Nausea and vomiting, unspecified vomiting type Take 1 Tablet by mouth every 6 hours as needed for Nausea. 20 Tablet 12/29/2021 documented as of this encounter Discharge Disposition Disposition Code Departure Means Destination Home or Self Care documented in this encounter Plan of Treatment [...] Procedure Name Priority Date/Time Associated Diagnosis Comments VITAMIN B12/ FOLIC ACID Callback 07/29/2023 3:26 PM EDT , unspecified gestational age TSH REFLEX Callback 07/29/2023 3:26 PM EDT , unspecified gestational age VITAMIN D 25 HYDROXY Callback 07/29/2023 3:26 PM EDT , unspecified gestational age CBC WITH DIFF Callback 07/29/2023 3:26 PM EDT , unspecified gestational age T3 FREE Callback 07/29/2023 3:26 PM EDT , unspecified gestational age T4, FREE (THYROXINE) Callback 07/29/2023 3:26 PM EDT , unspecified gestational age LIPASE LEVEL Callback 07/29/2023 3:26 PM EDT , unspecified gestational age IRON LEVEL Callback 07/29/2023 3:26 PM EDT , unspecified gestational age AMYLASE LEVEL Callback 07/29/2023 3:26 PM EDT , unspecified gestational age COMPREHENSIVE METABOLIC PANEL Callback 07/29/2023 3:26 PM EDT , unspecified gestational age HUMAN CHORIONIC GONADOTROPIN QUANTITATIVE Routine 07/29/2023 1:26 PM EDT , unspecified gestational age documented in this encounter Results * LIPASE LEVEL (07/29/2023 3:26 PM EDT) Lipase Lvl 54 13 - 60 U/L 07/30/2023 12:40 AM EDT [facility] [employer] [facility] Blood VENOUS BLOOD / Unknown Venipuncture / Unknown 07/29/2023 3:26 PM EDT 07/29/2023 3:26 PM EDT Rusty Carr APRN CHEMISTRY ORDERABLES Final Result Performing Organization Address City/[facility]/ZIP Co de Phone Number [facility], [address] , [address] [place], [place] [id number] * AMYLASE LEVEL (07/29/2023 3:26 PM EDT) Amylase Lvl 65 28 - 100 U/L 07/30/2023 12:40 AM EDT [facility], [facility] Blood VENOUS BLOOD / Unknown Venipuncture / Unknown 07/29/2023 3:26 PM EDT 07/29/2023 3:26 PM EDT Rusty Carr APRN CHEMISTRY ORDERABLES Final Result Performing Organization Address [facility] de Phone Number [facility] [employer], [facility] [address] , [address] [place] [phone] * (ABNORMAL) COMPREHENSIVE METABOLIC PANEL (07/29/2023 3:26 PM EDT) Sodium 135(L) 136 - 145 mmol/L 07/30/2023 12:40 AM EDT [facility] Potassium 3.8 3.5 - 5.0 mmol/L 07/30/2023 12:40 AM EDT [facility] Chloride 100 98 - 107 mmol/L 07/30/2023 12:40 AM EDT [facility] Total CO2 25 22 - 29 mmol/L 07/30/2023 12:40 AM EDT [facility] Anion Gap 10 7 - 16 mmol/L 07/30/2023 12:40 AM EDT [facility] Calcium 9.1 8.6 - 10.4 mg/dL 07/30/2023 12:40 AM EDT [facility] Glucose Lvl 74 70 - 99 mg/dL 07/30/2023 12:40 AM EDT [facility] BUN 11 6 - 20 mg/dL 07/30/2023 12:40 AM EDT [facility] Creatinine 0.68 0.51 - 1.30 mg/dL 07/30/2023 12:40 AM EDT [facility], [facility] Albumin 4.3 3.5 - 5.2 gm/dL 07/30/2023 12:40 AM EDT [facility], [facility] Total Protein 7.2 6.4 - 8.3 gm/dL 07/30/2023 12:40 AM EDT [facility], [facility] Bili Total <0.2(L) 0.2 - 1.3 mg/dL 07/30/2023 12:40 AM EDT [facility], [facility] ALT 14 <=41 U/L 07/30/2023 12:40 AM EDT [facility], [facility] AST 12 <=40 U/L 07/30/2023 12:40 AM EDT [facility], [facility] Alk Phos 72 36 - 123 U/L 07/30/2023 12:40 AM EDT [facility], [facility] eGFR (CKD-EPIcr 2020) 119 >=60 mL/min/1.7 3 m2 07/30/2023 12:40 AM EDT [facility] Comment:Estimated GFR was ca lculated using the CKD-EPIcr (2020) equation refit without race. The equation is recommended by the National Kid[employer] - [employer] [employer] Nephrology Task Force. Blood VENOUS BLOOD / Unknown Venipuncture / Unknown 07/29/2023 3:26 PM EDT 07/29/2023 3:26 PM EDT Rusty Carr APRN CHEMISTRY ORDERABLES Final Result [facility], [facility] [address] [place] [address] [facility] [address] [place] [id number] * IRON LEVEL (07/29/2023 3:26 PM EDT) Iron 81 30 - 160 mcg/dL 07/30/2023 12:40 AM EDT [facility] Blood VENOUS BLOOD / Unknown Venipuncture / Unknown 07/29/2023 3:26 PM EDT 07/29/2023 3:26 PM EDT us Rusty Carr [employer] CHEMISTRY ORDERABLES Final Result [facility] [address] [facility] , [address] [place], [place] [phone] * CBC WITH DIFF (07/29/2023 3:26 PM EDT) [facility] WBC 5.8 3.7 - 10.3 x10(3)/mcL 07/29/2023 9:51 PM EDT [facility] RBC 4.13 3.90 - 5.20 x10(6)/mcL 07/29/2023 9:51 PM EDT [facility] Hgb 12.6 11.2 - 15.7 g/dL 07/29/2023 9:51 PM EDT [facility] Hct 39.0 34.0 - 45.0 % 07/29/2023 9:51 PM EDT [facility] MCV 94.4 80.0 - 100.0 fL 07/29/2023 9:51 PM EDT [facility] MCH 30.5 26.0 - 34.0 pg 07/29/2023 9:51 PM EDT [facility] MCHC 32.3 30.7 - 35.5 g/dL 07/29/2023 9:51 PM EDT [facility] RDW 12.1 <=14.9 % 07/29/2023 9:51 PM EDT [facility] Platelet 256 155 - 369 x10(3)/mcL 07/29/2023 9:51 PM EDT [facility] MPV 12.3 8.8 - 12.5 fL 07/29/2023 9:51 PM EDT [facility] Neut Percent 58.4 % 07/29/2023 9:51 PM EDT [facility] Comment:Neutrophils equals s egs plus bands Imm Gran% 0.3 % 07/29/2023 9:51 PM EDT [facility] Comment:Automated count of m etamyelocytes, myelocytes and promyelocytes. Lymph Percent 32.5 % 07/29/2023 9:51 PM EDT [facility], [facility] [place] Percent 5.9 % 07/29/2023 9:51 PM EDT [facility] Eos Percent 2.2 % 07/29/2023 9:51 PM EDT [facility], [facility] Baso Percent 0.7 % 07/29/2023 9:51 PM EDT [facility], [facility] Neut # 3.4 1.6 - 6.1 x10(3)/[facility] 07/29/2023 9:51 PM EDT [facility], [facility] Comment:Neutrophils equals s egs plus bands IMMGRAN# 0.0 0.0 - 0.1 x10(3)/[facility] 07/29/2023 9:51 PM EDT [facility], [facility] Comment:Automated count of m etamyelocytes, myelocytes and promyelocytes. An absolute IG <0.1 is reported as 0.0. Lymph # 1.9 1.2 - 3.9 x10(3)/[facility] 07/29/2023 9:51 PM EDT [facility], [facility] [place] # 0.3 0.3 - 0.9 x10(3)/[facility] 07/29/2023 9:51 PM EDT [facility], [facility] Eos# 0.1 0.0 - 0.5 x10(3)/[facility] 07/29/2023 9:51 PM EDT [facility], [facility] Baso # 0.0 0.0 - 0.1 x10(3)/[facility] 07/29/2023 9:51 PM EDT [facility], [facility] Blood VENOUS BLOOD / Unknown Venipuncture / Unknown 07/29/2023 3:26 PM EDT 07/29/2023 3:26 PM EDT us Rusty Carr [employer] HEMATOLOGY ORDERABLES Final Result [facility], [facility] [address] [facility] , [place] [address] * T4, FREE (THYROXINE) (07/29/2023 3:26 PM EDT) [facility] Free T4 0.86 0.80 - 1.80 ng/dL 07/30/2023 12:40 AM EDT [facility] [employer] Blood VENOUS BLOOD / Unknown Venipuncture / Unknown 07/29/2023 3:26 PM EDT 07/29/2023 3:26 PM EDT Narrative [facility] - 07/30/2023 12:40 AM EDT Ingestion of cindi doses of biotin (>5 mg/day) taken within 8 hours of drawing blood sample can interfere with this immunoassay test. Rusty Carr APRN CHEMISTRY ORDERABLES Final Result Performing Organization Address [facility] Co de Phone Number [facility] [employer] [address] , [place] [address] * T3 FREE (07/29/2023 3:26 PM EDT) T3 Free 2.56 2.00 - 4.40 pg/mL 07/30/2023 12:40 AM EDT [facility] [employer] Blood VENOUS BLOOD / Unknown Venipuncture / Unknown 07/29/2023 3:26 PM EDT 07/29/2023 3:26 PM EDT Narrative [facility] [employer] [facility] - 07/30/2023 12:40 AM EDT Ingestion of cindi doses of biotin (>5 mg/day) taken within 8 hours of drawing blood sample can interfere with this immunoassay test. Rusty Carr APRN CHEMISTRY ORDERABLES Final Result Performing Organization Address [facility] Co de Phone Number [facility] [employer] [address] , [place] [address] * TSH REFLEX (07/29/2023 3:26 PM EDT) TSH Reflex 1.220 0.270 - 4.200 mcIU/mL 07/30/2023 12:40 AM EDT [facility] [employer] Blood VENOUS BLOOD / Unknown Venipuncture / Unknown 07/29/2023 3:26 PM EDT 07/29/2023 3:26 PM EDT Narrative [facility] [employer] [facility] - 07/30/2023 12:40 AM EDT Ingestion of cindi doses of biotin (>5 mg/day) taken within 8 hours of drawing blood sample can interfere with this immunoassay test. Rusty Carr APRN CHEMISTRY ORDERABLES Final Result Performing Organization Address [facility] de Phone Number [facility] [employer] [address] , [place] [address] * VITAMIN B12/ FOLIC ACID (07/29/2023 3:26 PM EDT) Vitamin B12 342 232 - 1,245 pg/mL 07/30/2023 1:56 AM EDT [facility] [employer] [facility] Folate 5.44 >=4.80 ng/mL 07/30/2023 1:56 AM EDT [facility] [employer] [facility] Blood VENOUS BLOOD / Unknown Venipuncture / Unknown 07/29/2023 3:26 PM EDT 07/29/2023 3:26 PM EDT Narrative [facility] [employer] [facility] - 07/30/2023 1:56 AM EDT Ingestion of cindi doses of biotin (>5 mg/day) taken within 8 hours of drawing blood sample can interfere with this immunoassay test. Rusty Carr APRN CHEMISTRY ORDERABLES Final Result Performing Organization Address [facility] de Phone Number [facility] [employer] [address] , [place] [address] * (ABNORMAL) VITAMIN D 25 HYDROXY (07/29/2023 3:26 PM EDT) Vit D 25 OH 9.2(L) 30.0 - 150.0 ng/mL 07/30/2023 1:56 AM EDT [facility] [employer] [facility] Comment: Preferred: >= 30 ng/mL Insufficient: 21-29 ng/mL Deficient <= 20 ??ng/mL Possible Toxicity: >150 ng/mL Samples should not be taken from patients receiving therapy with high biotin doses (i.e. > 5 mg/day) until at least 8 hours following the last biotin administration. Blood VENOUS BLOOD / Unknown Venipuncture / Unknown 07/29/2023 3:26 PM EDT 07/29/2023 3:26 PM EDT Rusty Carr APRN CHEMISTRY ORDERABLES Final Result Performing Organization Address City/[facility]/ZIP Co de Phone Number [employer] [address] [place] [address] , [place] [address] * (ABNORMAL) HUMAN CHORIONIC GONADOTROPIN QUANTITATIVE (07/29/2023 1:26 PM EDT) [facility] Hcg Quant 41,176(H) <5 mIU/mL 07/30/2023 1:33 AM EDT [employer] Blood VENOUS BLOOD / Unknown Venipuncture / Unknown 07/29/2023 1:26 PM EDT 07/29/2023 9:37 PM EDT Narrative [facility] [employer] - 07/30/2023 1:33 AM EDT Ingestion of cindi doses of biotin (>5 mg/day) taken within 8 hours of drawing blood sample can interfere with this immunoassay test. Female (non-): 0-4.9 mIU/mL Female (postmenopausal): 0-8.1 mIU/mL Indeterminate values for (e.g., 5-25 mIU/mL) may be confirmed with a repeat test in 48-72 hours. Values in should double every 2-3 days for the first six weeks. Rusty Carr APRN CHEMISTRY ORDERABLES Final Result Performing Organization Address City/[facility] Co de Phone Number [facility] [employer] [address] , [place] [address] documented in this encounter Visit Diagnoses Diagnosis , unspecified gestational age- Primary documented in this encounter Care Teams Field Merchandiser Relationship Specialty Start Date End Date Nehemias Barron MD [address] [place] [address] PCP - General 12/01/10 Easton Thompson MD [address] [place] [address] [address] [place] [address] Physician Obstetrics & Gynecology 01/29/14 Radha Wild APRN [address] [place] [address] Nurse Practitioner 11/04/15 documented as of this encounter
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
--- OUTSIDE RECORDS SUMMARY | 2024-03-07 05:02 | XMS_ITS | Referral Summary ---
Author Organization [facility] Address [address] [place] [address] Phone Care Team Providers Care Iron Miner Blasting Name Role Phone Nehemias Barron MD Primary Care Provider [phone] Easton Thompson MD Unavailable [phone] Radha Wild GOLF INSTRUCTOR Unavailable [phone] Allergies Active Allergy Reactions Criticality Noted Date [...] Seizure disorder 04/29/2020 Overview (04/29/2020): Diagnosed in [facility] October 2019 Has done well on [...] (11/11/2020): Added automatically from request for surgery [id number] Abdominal pain, RLQ (right lower quadrant) 11/11/2020 05/20/2022 Overview (11/11/2020): Added automatically from request for surgery [id number] Cough 08/02/2019 10/15/2020 Fever 08/02/2019 10/15/2020 Shortness [...] Pneumococcal Polysaccharide 23 Valent 01/01/2021 Tdap 11/01/2017,07/15/2015 Social History Tobacco Use Types Packs/Day Years [...] on file Sexual Orientation Not on file Last Filed Vital Signs Vital Sign Reading [...] Mass Index 22.1 01/21/2023 2:02 PM EDT Functional Status * Is the person deaf [...] 08/24/2021 2:30 PM EDT Jacqueline Farfan RMA Mental Status * Because of a physical, mental or emotional condition, does this person have serious difficulty concentrating, remembering or making decisions? Answer Entry Date Author No 08/24/2021 2:30 PM EDT Jacqueline Farfan RMA Plan of Treatment Not on file Goals Goal Patient Goal Type Associated Problems Recent Progress Patient-Stated? Author Maintain a healthy diet, exercise regularly and maintain an ideal body weight General No Shraddha Dolan LPN Stay Tobacco Free Lifestyle No Shraddha Dolan LPN Procedures Procedure Name Priority Date/Time Associated Diagnosis Comments SCANNED LABS 02/23/2024 12:07 AM EST [facility] BUSINESS PROCESS CONSULTANT CYTOLOGY ORDER Routine 12/25/2020 3:47 PM EDT [...] Most Recently Relevant to Health Maintenance Insurance [address] [address] [facility] [place] [address] [address] [address] [place] [place] [address] [facility] [place] [address] * [facility]: [facility] Account Type Relation to Patient Date of Phone Billing Address Corporate Other ATTN: MEDICAL DEPT ALVIN [address] * Guarantor[facility] Account Type Relation to Patient Date of Phone Billing Address [employer] Corporate Other ATTN: MEDICAL DEPT [address] * Guarantor: [facility] Account Type Relation to Patient Date of Phone Billing Address [facility] Corporate Other ATTN: MEDICAL DEPT [address] Advance Directives For more information, please contact: [phone] Documents on File Type Date Recorded Patient Electrophysiology Technician Expl anation Advance Directives and Living Will 11/20/2010 Advance Directives/DNR 11/20/2010 * Full Code (Latest Code Status on File) Date Activated Date Inactivated Comments 10/30/2015 11:10 PM 10/31/2015 7:30 PM * Full Code Date Activated Date Inactivated Comments 07/20/2015 1:58 AM 07/22/2015 3:00 AM * Full Code Date Activated Date Inactivated Comments 07/16/2015 4:02 AM 07/16/2015 9:12 PM Care Teams Iron Miner Blasting Relationship Specialty Start Date End Date Nehemias Barron MD [address] [place] [address] PCP - General 12/01/10 Easton Thompson MD [address] [place] [address] [address] [place] [address] Physician Obstetrics & Gynecology 01/29/14 Radha Wild APRN [address] [place] [address] Nurse Practitioner 11/04/15
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
--- OUTSIDE RECORDS SUMMARY | 2024-03-07 05:02 | XMS_ITS | Clinical Summary ---
[facility] Address [address] [place] [address] Care Team Providers Care Seafood Clerk Name Role Phone Nehemias Barron MD Primary Care Provi pernell Allergies Active Allergy Reactions Criticality Noted Date Comments Sulfa Antibiotics Hives Medium 01/17/2022 Medications naphazoline-phe niramine (NAPHCON-A) 0.025-0.3 % ophthalmic solution Administer 1 drop into the left eye 4 (Four) Times a Day As Needed for Irritation. 5 mL 2 Active clindamycin (CLEOCIN) 300 MG capsule Take 1 capsule by mouth 4 (Four) Times a Day. 28 capsule 2 Active fluticasone (FLONASE) 50 MCG/ACT nasal spray 2 sprays into the nostril(s) as directed by provider Daily. 15.8 mL 2 Active erythromycin (ROMYCIN) 5 MG/GM ophthalmic ointment Administer to the right eye Every 6 (Six) Hours. 1 g 2 Active Social History Tobacco Use Types Packs/Day Years Used Date Smoking Tobacco: Never Assessed Abuse Screen Answer Date Recorded Unsafe at Home or Work/School Not on file Feels Threatened by Someone? Not on file Does Anyone Keep You from Co ntacting Others or Doint Things Outside the Home? Not on file 01/21/2023 Physical Sign of Abuse Present Not on file 1 Housing Stability Answer Date Recorded Current Living Arrangements Not on file 01/09 Potentially Unsafe Housing Conditions Not on megan e 01/21/2023 Family and Community Support Answer Ricky e Recorded Help with Day-to-Day Activities Not on file 01/21/2023 Lonely or Isolated Not on file 01/21/2023 Employment Answer Date Recorded Do you want help finding or keeping work or a chin b? Not on file 01/21/2023 Disabilities Answer Date Recorded Concentrating, Remembering, or Making Decisions Difficulty Not on file 01/21/2023 Doing Errands Independently Difficulty Not on fi le 01/21/2023 Education Answer Date Recorded Help with school or training? Not on file Preferred Language Not on file 01/21/2023 Comments No Sex and Gender Information Value Date Recorded Sex Assigned at Not on file Legal Sex Female 10:40 AM EDT Gender Identity Not on file Sexual Orientation Not on file Last Filed Vital Signs Vital Sign Reading Time Taken Comments Blood Pressure 112/74 01/17/2022 10:41 AM EDT Pulse 87 01/17/2022 10:41 AM EDT Temperature 36.7 ??C (98.1 ??F) 01/17/2022 10:41 AM E DT Respiratory Rate 20 01/17/2022 10:41 AM EDT Oxygen Saturation 100% 01/17/2022 10:41 AM EDT Inhaled Oxygen Concentration - - Weight 56.7 kg (125 lb) 01/17/2022 10:41 AM EDT Height 165.1 cm (5' 5 ) 01/17/2022 10:41 AM EDT Body Mass Index 20.8 01/17/2022 10:41 AM EDT Plan of Treatment Health Maintenance Due Date Last Done Comments ANNUAL PHYSICAL 1990 Annual Gynecologic Pelvic an d Breast Exam 1990 Hepatitis B (1 of 3 - 19+ 3-dose series) 08/01/2011 INFLUENZA VACCINE 10/10/2023 03/11/2021 COVID-19 Vaccine (1 - 2023-2 5 season) 2023 TDAP/TD VACCINES (3 - Td or Tdap) 11/02/2027 11/01/2017, 07/15/2015 HEPATITIS C SCREENING Completed 10/27/2020 Pneumococcal Vaccine 0-64 Aged Out No longer eligible based on patient's age to complete this topic Insurance [employer] [facility] Care Teams Seafood Clerk Relationship Specialty Start Date End Date Nehemias Barron MD [address] [place] [address] PCP - General Family Medicine 01/17/22
--- OUTSIDE RECORDS SUMMARY | 2024-03-07 05:02 | XMS_ITS | Encounter Summary ---
Author Organization [facility] Address [address] [place] [address] Care Team Providers Care Jazz Musician Name Role Phone Nehemias Barron MD Primary Care Provi pernell Reason for Visit * Reason Comments Eye Pain Encounter Details Date Type Department Care Team (Late st Contact Info) Description 01/17/2022 10:42 AM EDT - 01/17/2022 12:21 PM EDT Emergency [facility] [address] [place] [address] Vito Sawyer MD [address] [facility] DEPT [facility]LD [place], [place] [id number] Discomfort of left eye (Primary Dx); Left maxillary sinusitis; Blepharitis of both upper and lower eyelid of left eye, unspecified type Discharge Disposition: Home or Self Care Social History Tobacco Use Types Packs/Day Years Used Date Smoking Tobacco: Never Assessed Comments No Sex and Gender Information Value [...] Mass Index 20.8 01/17/2022 10:41 AM EDT documented in this encounter Discharge Instructions * Discharge Instructions* Phuc Samaniego PA - 01/17/2022 11:41 AM EDT Flonase nasal spray as prescribed. Erythromycin ophthalmic ointment to left eye as prescribed. * Attachments The following attachments cannot be sent through Care Everywhere. * Sinusitis Adult [id number] (Maltese) documented in this encounter Medications at Time of Discharge clindamycin (CLEOCIN) 300 MG capsule Take 1 capsule by mouth 4 (Four) Times a Day. 28 capsule 01/17/2022 erythromycin (ROMYCIN) 5 MG/GM ophthalmic ointment Administer to the right eye Every 6 (Six) Hours. 1 g 01/17/2022 fluticasone (FLONASE) 50 MCG/ACT nasal spray 2 sprays into the nostril(s) as directed by provider Daily. 15.8 mL 01/17/2022 naphazoline-phen iramine (NAPHCON-A) 0.025-0.3 % ophthalmic solution Administer 1 drop into the left eye 4 (Four) Times a Day As Needed for Irritation. 5 mL 01/17/2022 documented as of this encounter ED Notes * Phuc Samaniego PA - 01/17/2022 11:25 AM EDT Subjective History of Present Illness Ms. Olivares is a pleasant 31 yo female who presents to the ED with complaints of left eye pressure and left maxillary sinus pressure. The pt states she was at the [employer] football game last night and developed head congestion and sneezing in the cold air. She noticed that the left maxillary sinus regiondeveloped pressure and she is unable to breath through the left nare. She denies any foreign body sensation. She has mild blurred vision in the left eye and feels like her left face is swollen . Shedoes not wear contact lens or glasses. No fever or WHITE. No known health problems. No dental pain. Review of Systems Constitutional: Negative for fever. HENT: Positive for sinus pressure and sneezing. Negative for sore throat. Eyes: Positive for pain ( pressure on the left). Negative for photophobia and discharge. Respiratory: Negative for cough and shortness of breath. Gastrointestinal: Negative for nausea. Musculoskeletal: Negative for neck pain. Skin: Negative for rash. Neurological: Negative for headaches. Hematological: Negative for adenopathy. Psychiatric/Behavioral: Negative. History reviewed. No pertinent past medical history. Allergies Allergen Reactions ??? Sulfa Antibiotics Hives History reviewed. No pertinent surgical history. History reviewed. No pertinent family history. Social History Socioeconomic History ??? Marital status: Single Objective Physical Exam Constitutional: General: She is not in acute distress. Appearance: Normal appearance. HENT: Head: Normocephalic. Right Ear: Tympanic membrane normal. Left Ear: Tympanic membrane normal. Nose: Comments: Left nasal mucosa is swollen and erythemic will mild clear mucous. Little patency in the left nare. Some increased tenderness on palpation over the left maxillary region. Normal right nare. Eyes: General: Right eye: No discharge. Left eye: No discharge. Extraocular Movements: Extraocular movements intact. Conjunctiva/sclera: Conjunctivae normal. Pupils: Pupils are equal, round, and reactive to light. Comments: Exam with fluorescein stain and White lamp reveals no foreign body or abrasion. Intraocular pressure with Delbert-Pen is 15 on the left. Vision was 20/20 OS and 20/20 OD. Cardiovascular: Rate and Rhythm: Normal rate. Pulmonary: Effort: Pulmonary effort is normal. Abdominal: General: Bowel sounds are normal. Tenderness: There is no abdominal tenderness. Musculoskeletal: General: Normal range of motion. Cervical back: Normal range of motion and neck supple. Skin: General: Skin is warm and dry. Findings: No erythema or rash. Neurological: General: No focal deficit present. Mental Status: She is alert and oriented to person, place, and time. Procedures ED Course 31-year-old female presents with left eye discomfort and left maxillary sinus pressure after attending [employer] football game last night. The patient states that in the cold air, she developed some sneezing and sinus congestion and her left eye symptoms developed shortly after that. She has mild blurred vision from the left eye. She has trouble breathing out of the left nostril. No fever. No known healt h issues. Fluorescein stain and White lamp exam reveals no abrasions or foreign bodies. Intraocular pressure tested with Delbert-Pen shows 15 on the left. Nasal mucosa is boggy and erythemic and she has poor nasal patency from the left nare. I think this is mostly left maxillary sinusitis with some blepharitis of the left eye. Vision is normal in both eyes and tested with eye chart. Afrin nasal spray was applied to the left nare. The patient will be discharged home on Flonase nasal spray, and ocular decongestant and antibiotics. She has been advised to follow-up with Summer Capone (ophthalmology) tomorrow if symptoms persist. MDM Final diagnoses: Discomfort of left eye Left maxillary sinusitis Blepharitis of both upper and lower eyelid of left eye, unspecified type ED Disposition ED Disposition ED Disposition Discharge Condition Stable Comment -- Nehemias Barron MD [address] [facility] [address] If symptoms worsen Summer Capone MD [address] [facility] [address] [id number] Call for follow up appointment if left eye pain persists or you have visual impairment. Medication List New Prescriptions clindamycin 300 MG capsule Commonly known as: CLEOCIN Take 1 capsule by mouth 4 (Four) Times a Day. erythromycin 5 MG/GM ophthalmic ointment Commonly known as: ROMYCIN Administer to the right eye Every 6 (Six) Hours. fluticasone 50 MCG/ACT nasal spray Commonly known as: FLONASE 2 sprays into the nostril(s) as directed by provider Daily. naphazoline-pheniramine 0.025-0.3 % ophthalmic solution Commonly known as: NAPHCON-A Administer 1 drop into the left eye 4 (Four) Times a Day As Needed for Irritation. Where to Get Your Medications These medications were sent to [facility]/pharmacy #[id number] - [place], [place] - [address] [place] [address] AT [facility] - [phone] - [phone] [address] ?? clindamycin 300 MG capsule ?? erythromycin 5 MG/GM ophthalmic ointment ?? fluticasone 50 MCG/ACT nasal spray ?? naphazoline-pheniramine 0.025-0.3 % ophthalmic solution Phuc Samaniego PA 01/17/22 1146 Cosigned by Vito Sawyer MD at 01/17/2022 5:53 PM EDT Associated attestation - Vito Sawyer MD - 01/17/2022 5:53 PM EDT SUPERVISE: For this patient encounter, I reviewed the APC's documentation, treatment plan, and medical decision making. Vito Sawyer MD 01/17/2022 17:53 EDT documented in this encounter Plan of Treatment Not on file documented as of this encounter Visit Diagnoses Diagnosis Discomfort of left eye- Primary Left maxillary sinusitis Blepharitis of both upper and lower eyelid of left eye, unspecified type documented in this encounter Administered Medications Inactive Administered Medications - up to 3 most recent administrations Medication Order MAR Action Action Date Dose Rate Site oxymetazoline (AFRIN) nasal spray 1 spray 1 spray, Nasal, Once, On 01/17/22 at 1127, For 1 dose, ?? {BKC} Given 01/17/2022 11:40 AM EDT 1 spray tetracaine (ALTACAINE) 0.5 % ophthalmic solution 2 drop 2 drop, Left Eye, Once, On 01/17/22 at 1104, For 1 dose Given 01/17/2022 11:40 AM EDT 2 drops documented in this encounter Active and Recently Administered Medications Times are shown in EDT. Scheduled Medication Order 01/15/2022 01/16/2022 01/17/2022 oxymetazoline (AFRIN) nasal spray 1 spray (COMPLETED) 1 spray, Nasal, Once, On 01/17/22 at 1127, For 1 dose, ?? {BKC} 1140 (Given - Provid er: Mao W Fightmaster, RN) tetracaine (ALTACAINE) 0.5 % ophthalmic solution 2 drop (COMPLETED) 2 drop, Left Eye, Once, On 01/17/22 at 1104, For 1 dose 1140 (Given - Provid er: Mao Aparicio RN) documented in this encounter Care Teams Jazz Musician Relationship Specialty Start Date End Date Nehemias Barron MD [address] [place] [address] PCP - General Family Medicine 01/17/22 documented as of this encounter
--- OUTSIDE RECORDS SUMMARY | 2024-03-07 05:03 | XMS_ITS | Encounter Summary ---
Author Organization [facility] Address [address] [place] [address] Care Team Providers Care Vb Developer Name Role Phone Nehemias Barron MD Primary Care Provider [phone] Easton Thompson MD Unavailable [phone] Radha Wild APRN Unavailable [phone] Reason for Visit * Reason Onset Date Comments Consult 10/27/2021 Encounter Details Date Type Department Care Team (Late st Contact Info) Description 10/27/2021 Telephone [facility] [place] [address] [place] [address] Mansi Whalen, OSCAR Consult Social History Tobacco Use Types Packs/Day Years Used Date Smoking Tobacco: Every Day Cigarettes 1 10.5 Started: 04/11/2005; Last attempted to quit: 10/09/2015 Smokeless Tobacco: Never Alcohol Use Standard Drinks/Week Comments No 0 (1 standard drink = 0.6 oz pur e alcohol) PHQ-2 Answer Date Recorded PHQ-2 Total Score 0 08/24/2021 Sexually Active Control Partners Comments Yes Male Comments No Sex and Gender Information Value Date Recorded Sex Assigned at Not on file Legal Sex Female 7:55 PM EDT Gender Identity Not on file Sexual Orientation Not on file COVID-19 Exposure Response Date Recorded In the last 10 days, have yo u been in contact with someone who was confirmed or suspected to have Coronavirus/COVID-19? No / Unsure 10/25/2021 1:22 PM EDT documented as of this encounter Functional Status [...] Jacqueline Farfan RMA documented in this encounter Miscellaneous Notes * Telephone Encounter - Mansi Whalen RN - 10/27/2021 9:10 AM EDT Referral for consult. Unable to LM no VM. documented in this encounter Plan of Treatment Not on file documented as of this encounter Goals Goal Patient Goal Type Associated Problems Recent Progress Patient-Stated? Author Maintain a healthy diet, exercise regularly and maintain an ideal body weight General No Shraddha Dolan LPN Stay Tobacco Free Lifestyle No Shraddha Dolan LPN documented as of this encounter Visit Diagnoses Not on filedocumented in this encounter Care Teams Vb Developer Relationship Specialty Start Date End Date Nehemias Barron MD [address] [place] [phone] PCP - General 12/01/10 Easton Thompson MD [address] [place] [address] [address] [place] [address] Physician Obstetrics & Gynecology 01/29/14 Radha Wild APRN [address] [place] [address] Nurse Practitioner 11/04/15 documented as of this encounter
--- OUTSIDE RECORDS SUMMARY | 2024-03-07 05:03 | XMS_ITS | Encounter Summary ---
Author Organization [place] [address] Care Team Providers Care Lotus Notes Administrator Name Role Phone Nehemias Barron MD Primary Care Provider Easton Thompson MD Unavailable [phone] Radha Wild APRN Unavailable [phone] Reason for Visit * Reason Onset Date Comments ED Follow-Up Call 10/27/2021 Encounter Details Date Type Department Care Team (Late st Contact Info) Description 10/27/2021 Patient Outreach [facility] [address] [place] [address] So Rose, GUIDE TOUR Follow-Up Call Social History Tobacco Use Types Packs/Day Years [...] Jacqueline Farfan RMA documented in this encounter Progress Notes * So Rose RN - 10/27/2021 3:24 PM EDT Attempted to reach patient regarding Emergency Department follow up. Patient wasn't available. documented in this encounter Plan of Treatment [...] on filedocumented in this encounter Care Teams Lotus Notes Administrator Relationship Specialty Start Date End Date Nehemias Barron MD [address] [place] [phone] PCP - General 12/01/10 Easton Thompson MD [address] [place] [address] [address] [place] [address] Physician Obstetrics & Gynecology 01/29/14 Radha Wild APRN [address] [place] [address] Nurse Practitioner 11/04/15 documented as of this encounter
--- OUTSIDE RECORDS SUMMARY | 2024-03-07 05:03 | XMS_ITS | Encounter Summary ---
Author Organization [facility] Address [address] [place] [address] Care Team Providers Care Offset Second Press Operator Name Role Phone Nehemias Barron MD Primary Care Provider [phone] Easton Thompson MD Unavailable [phone] Radha Wild APRN Unavailable [phone] Reason for Visit * Reason Onset Date Comments Follow-up 01/13/2022 Encounter Details Date Type Department Care Team (Late st Contact Info) Description 01/13/2022 Telephone [facility] [place] [address] [place] [phone] Angeles Capone, RT Follow-up Social History Tobacco Use Types Packs/Day Years [...] No 08/24/2021 2:30 PM EDT Jacqueline Farfan RMRigo * Because of a physical, mental or [...] encounter Miscellaneous Notes * Telephone Encounter - Angeles Capone RT - 01/13/2022 9:59 AM EDT Patient has not scheduled GI appt yet due to work issues Will call when she is able to proceed with appointment and Dr Louis recommendations documented in this encounter Plan of Treatment [...] on filedocumented in this encounter Care Teams Offset Second Press Operator Relationship Specialty Start Date End Date Nehemias Barron MD [address] [place] [address] PCP - General 12/01/10 Easton Thompson MD [address] [place] [address] [address] [place] [address] Physician Obstetrics & Gynecology 01/29/14 Radha Wild APRN [address] [place] [phone] Nurse Practitioner 11/04/15 documented as of this encounter
--- OUTSIDE RECORDS SUMMARY | 2024-03-07 05:03 | XMS_ITS | Encounter Summary ---
Author Organization [facility] [place] [address] Care Team Providers Care Concrete Rubber Name Role Phone Nehemias Barron MD Primary Care Provider [phone] Easton Thompson MD Unavailable [phone] Radha Wild TOOL ROOM SUPERVISOR Unavailable [phone] Encounter Details Date Type Department Care Team (Latest Contact Info) Description 02/17/2022 Travel Social History Tobacco Use Types Packs/Day Years [...] Assessment Author No 08/24/2021 2:30 PM EDT Adolph Jacqueline DENILSON * Does this person have difficulty dressing or bathing? Answer Date of Assessment Author No 08/24/2021 2:30 PM EDT Jacqueline Farfan RMA * Because of a physical, mental or emotional condition, does this person have difficulty doing errands alone such as visiting a doctor's office or shopping? Answer Date of Assessment Author No 08/24/2021 2:30 PM EDT Diane FarfanrinaDENILSON documented as of this encounter Mental Status * Because of a physical, mental or emotional condition, does this person have serious difficulty concentrating, remembering or making decisions? Answer Entry Date Author No 08/24/2021 2:30 PM EDT Adolph Jacqueline, DENILSON documented in this encounter Plan of Treatment [...] on filedocumented in this encounter Care Teams Concrete Rubber Relationship Specialty Start Date End Date Nehemias Barron MD [address] [place] [address] PCP - General 12/01/10 Easton Thompson MD [address] [place] [address] [address] [place] [address] Physician Obstetrics & Gynecology 01/29/14 Radha Widl APRN [address] [place] [address] Nurse Practitioner 11/04/15 documented as of this encounter
--- OUTSIDE RECORDS SUMMARY | 2024-03-07 05:03 | XMS_ITS | Encounter Summary ---
Author Organization [place] [address] Care Team Providers Care Community Placement Worker Name Role Phone Nehemias Barron MD Primary Care Provider [phone] Easton Thompson MD Unavailable [phone] Radha Wild APRN Unavailable [phone] Encounter Details Date Type Department Care Team (Late st Contact Info) Description 02/17/2022 7:30 AM EST Telemedicine [facility] [address] [facility] [place] [address] Bella Richmond MD [address] [place] [address] Abscessed tooth (Primary Dx) Social History Tobacco Use Types Packs/Day Years [...] No 08/24/2021 2:30 PM EDT Jacqueline Farfan DENILSON * Does this person have serious difficulty walking or climbing stairs? Answer Date of Assessment Author No 08/24/2021 2:30 PM EDT Jacqueline Farfan RMA * Does this person have difficulty dressing or bathing? Answer Date of Assessment Author No 08/24/2021 2:30 PM EDT Jacqueline Farfan DENILSON * Because of a physical, mental or emotional condition, does this person have difficulty doing errands alone such as visiting a doctor's office or shopping? Answer Date of Assessment Author No 08/24/2021 2:30 PM EDT Jacqueline Farfan RMRigo documented as of this encounter Mental Status * Because of a physical, mental or emotional condition, does this person have serious difficulty concentrating, remembering or making decisions? Answer Entry Date Author No 08/24/2021 2:30 PM EDT Jacqueline Farfan RMRigo documented in this encounter Ordered Prescriptions Prescription Sig Dispense Quantity Refills Last Filled Start Date End Date amoxicillin (AMOXIL) 500 mg Oral CapsuleIndications :Abscessed tooth Take 2 Capsules by mouth 2 times daily for 10 days. 40 Capsule 02/17/2022 2 documented in this encounter Progress Notes * Bella Richmond MD - 02/17/2022 7:30 AM EST Patient presented today for routine care follow-up through a video visit. Patient has reviewed the terms and conditions of service as part of the registration for today's visit. A video visit does not replace a [id number] exam and further services may be necessary. We are conducting her video visit in a private space and this video visit is being conducted in accordance with state telehealth/video visit regulations. HPI: Woke up with an abscessed tooth needs antibiotics Review of Systems HENT: Positive for mouth sores. Exam: Constitutional: NAD, appropriately groomed. Appears comfortable. HENT: No gross deformities. Voice normal. No facial swelling noted. Eyes: Extra occular movements grossly intact. Visible portions of the eyes appear normal. No redness or discharge visible via casual video inspection. Cardiopulmonary: Does not appear in cardiopulmonary distress. Easy respirations w/o labored breathing. No audible gross wheezing or breathlessness. Neuro: Alert and oriented. Conversational. No gross deficits or facial droop appreciated on video evaluation. Psych: Appropriate mood and affect. Normal conversation and thought content. Assessment Diagnoses and all orders for this visit: Abscessed tooth - amoxicillin (AMOXIL) 500 mg Oral Capsule; Take 2 Capsules by mouth 2 times daily for 10 days. Dispense: 40 Capsule; Refill: 0 documented in this encounter Plan of Treatment Not on file documented as of this encounter Goals Goal Patient Goal Type Associated Problems Recent Progress Patient-Stated? Author Maintain a healthy diet, exercise regularly and maintain an ideal body weight General No Shraddha Dolan LPN Stay Tobacco Free Lifestyle No Shraddha Dolan LPN documented as of this encounter Visit Diagnoses Diagnosis Abscessed tooth- Primary Periapical abscess without sinus documented in this encounter Care Teams Community Placement Worker Relationship Specialty Start Date End Date Nehemias Barron MD [address] [place] [address] PCP - General 12/01/10 Easton Thompson MD [address] [place] [address] [address] [place] [address] Physician Obstetrics & Gynecology 01/29/14 Radha Wild APRN [address] [place] [address] Nurse Practitioner 11/04/15 documented as of this encounter
--- OUTSIDE RECORDS SUMMARY | 2024-03-07 05:03 | XMS_ITS | Encounter Summary ---
Author Organization [place] [place] [address] Care Team Providers Care Physical Security Manager Name Role Phone Nehemias Barron MD Primary Care Provider [phone] Easton Thompson MD Unavailable [phone] Radha Wild APRN Unavailable [phone] Reason for Visit * Reason Onset Date Comments ED Follow-Up Call 10/14/2021 Encounter Details Date Type Department Care Team (Late st Contact Info) Description 10/14/2021 Patient Outreach [facility] [address] [place] [address] So Rose, FRANCHISE BROKER Follow-Up Call Social History Tobacco Use Types [...] suspected to have Coronavirus/COVID-19? No / Unsure 10/11/2021 1:03 PM EDT documented as of this encounter Functional Status * Is the person deaf or does he/she have serious difficulty hearing? Answer Date of Assessment Author No 08/24/2021 2:30 PM EDT Jacqueline Farfan RMRigo * Is the person blind or does he/she have serious difficulty seeing even when wearing glasses? Answer Date of Assessment Author No 08/24/2021 2:30 PM EDT Jacqueline Farfan DENILSON * Does this person have serious difficulty walking or climbing stairs? Answer Date of Assessment Author No 08/24/2021 2:30 PM EDT Jacqueline Farfan RMRigo * Does this person have difficulty dressing [...] Jacqueline Farfan RMRigo documented in this encounter Progress Notes * So Rose RN - 10/14/2021 10:40 AM EDT Attempted to reach patient regarding Emergency Department follow up. Patient didn't answer and no voicemail is available. Letter was sent via [employer]. documented in this encounter Plan of Treatment [...] on filedocumented in this encounter Care Teams Physical Security Manager Relationship Specialty Start Date End Date Nehemias Barron MD [address] [place] [address] PCP - General 12/01/10 Easton Thompson MD [address] [place] [address] [address] [place] [address] Physician Obstetrics & Gynecology 01/29/14 Radha Wild APRN [address] [place] [address] Nurse Practitioner 11/04/15 documented as of this encounter
--- OUTSIDE RECORDS SUMMARY | 2024-03-07 05:03 | XMS_ITS | Encounter Summary ---
Author Organization [place] [address] Care Team Providers Care Validation Leader Name Role Phone Nehemias Barron MD Primary Care Provider [phone] Easton Thompson MD Unavailable [phone] Radha Wild APRN Unavailable [phone] Reason for Visit * Reason Comments Pharmacy Hep C Management Pharmacy Reassessment Encounter Details Date Type Department Care Team (Latest Contact Info) Description 05/07/2021 Specialty Pharmacy [facility] [address] [facility] [address] [place] [address] Itzel Baldwin, MillyD Pharmacy Hep C Management; Pharmacy Reassessment Social History Tobacco Use Types Packs/Day Years Used Date Smoking Tobacco: Every Day Cigarettes 1 10.5 Started: 04/11/2005; Last attempted to quit: 10/09/2015 Smokeless Tobacco: Never Alcohol Use Standard Drinks/Week Comments No 0 (1 standard drink = 0.6 oz pur e alcohol) PHQ-2 Answer Date Recorded PHQ-2 Total Score 0 10/27/2020 Sexually Active Control Partners Comments Yes Male Comments No Sex and Gender Information Value Date Recorded Sex Assigned at Not on file Legal Sex Female 7:55 PM EDT Gender Identity Not on file Sexual Orientation Not on file documented as of this encounter Functional Status * Is the person deaf or does he/she have serious difficulty hearing? Answer Date of Assessment Author No 10/27/2020 3:29 PM EDT Anel Hope RMA * Is the person blind or does he/she have serious difficulty seeing even when wearing glasses? Answer Date of Assessment Author No 10/27/2020 3:29 PM EDT Anel Hope RMA * Does this person have serious difficulty walking or climbing stairs? Answer Date of Assessment Author No 10/27/2020 3:29 PM EDT Anel Hope RMA * Does this person have difficulty dressing or bathing? Answer Date of Assessment Author No 10/27/2020 3:29 PM EDT Anel Hope RMA * Because of a physical, mental or emotional condition, does this person have difficulty doing errands alone such as visiting a doctor's office or shopping? Answer Date of Assessment Author No 10/27/2020 3:29 PM EDT Anel Hope RMA documented as of this encounter Mental Status * Because of a physical, mental or emotional condition, does this person have serious difficulty concentrating, remembering or making decisions? Answer Entry Date Author No 10/27/2020 3:29 PM EDT Anel Hope RMA documented in this encounter Progress Notes * Itzel Ponce RPH - 05/07/2021 2:07 PM EST Hepatitis [facility] Medication Management [facility] Patient has completed HCV therapy. Referral has been closed and patient has been disenrolled from specialty pharmacy. Thank you! Itzel Ponce, Yusef documented in this encounter Plan of Treatment [...] on filedocumented in this encounter Care Teams Validation Leader Relationship Specialty Start Date End Date Nehemias Barron MD [address] [place] [address] PCP - General 12/01/10 Easton Thompson MD [address] [place] [address] [address] [place] [address] Physician Obstetrics & Gynecology 01/29/14 Radha Wild APRN [address] [facility] [place] [phone] Nurse Practitioner 11/04/15 documented as of this encounter
--- OUTSIDE RECORDS SUMMARY | 2024-03-07 05:03 | XMS_ITS | Encounter Summary ---
Author Organization [place] [address] Care Team Providers Care Hay Buckler Name Role Phone Nehemias Barron MD Primary Care Provider [phone] Easton Thompson MD Unavailable [phone] Radha Wild APRN Unavailable [phone] Reason for Visit * Reason Comments Pharmacy Hep C Management Pharmacy Reassessment Encounter Details Date Type Department Care Team (Latest Contact Info) Description 03/11/2021 10:59 AM EST - 03/11/2021 11:34 AM EST Hospital Encounter [facility] [address] [facility] [address] [place] [address] Ritu Samaniego RPH Chronic hepatitis C without hepatic coma (HCC) (Primary Dx) Discharge Disposition: Home or Self [...] Exposure Response Date Recorded In the last month, have you been in contact with someone who was confirmed or suspected to have Coronavirus / COVID-19? No / Unsure 03/11/2021 10:59 AM EST documented as of this encounter Functional Status * Is the person deaf or does he/she have serious difficulty hearing? Answer Date of Assessment Author No 10/27/2020 3:29 PM Anel Dao RMA * Is the person blind or does he/she have serious difficulty seeing even when wearing glasses? Answer Date of Assessment Author No 10/27/2020 3:29 PM Anel Dao RMA * Does this person have serious difficulty walking or climbing stairs? Answer Date of Assessment Author No 10/27/2020 3:29 PM Anel Dao RMA * Does this person have difficulty dressing or bathing? Answer Date of Assessment Author No 10/27/2020 3:29 PM Anel Dao RMA * Because of a physical, mental or emotional condition, does this person have difficulty doing errands alone such as visiting a doctor's office or shopping? Answer Date of Assessment Author No 10/27/2020 3:29 PM Anel Dao RMA documented as of this encounter Mental Status * Because of a physical, mental or emotional condition, does this person have serious difficulty concentrating, remembering or making decisions? Answer Entry Date Author No 10/27/2020 3:29 PM Anel Dao RMA documented in this encounter Medications at Time of Discharge albuterol (PROVENTIL HFA;VENTOLIN HFA) 90 mcg/actuation Inhl HFA Aerosol Inhaler Inhale 2 Puffs into the lungs every 6 hours as needed for Wheezing. levETIRAcetam (KEPPRA) 750 mg Oral TabletIndications :Seizure disorder (HCC) Take 2 Tabs by mouth 2 times daily. 120 Tab 12 10/15/2020 hepatitis B vaccine (ENGERIX-B) 20 mcg/mL IM Syringe Inject 1 mL into the muscle Once (Vaccine) for 1 dose. 1 mL 03/11/2021 11:35 AM EST 03/11/2021 03/12/2021 documented as of this encounter Discharge Disposition Disposition Code Departure Means Destination Home or Self Care documented in this encounter Progress Notes * Ritu Samaniego RPH - 03/11/2021 11:00 AM EST Specialty Pharmacy - Hepatitis C Return Subjective Bonny Olivares is a 30 y.o. female, who is here for her 4-week follow by with the hepatitis C pharmacist. she started sofosbuvir/velpatasvir (Epclusa) on ~02/09/21. Treatment duration: 12 weeks Current treatment week: 5 Medication Adherence What concerns does the patient have in regards to their medications: None Patient reported X missed doses in the last month: 0 Any gaps in refill history greater than 2 weeks in the last 3 months: no Demonstrates understanding of importance of adherence: yes Informant: friend Reliability of informant: reliable Provider-estimated medication adherence level: 90-100% Reasons for non-adherence: no problems identified Adherence tools used: alarm Support network for adherence: healthcare provider Confirmed plan for next specialty medication refill: delivery by pharmacy Refills needed for supportive medications: not needed Adverse Effects *All other systems reviewed and are negative Objective Hepatitis C jason/subtype: 3a Fibrosis score: F0/F1 F0 - no fibrosis F1 - portal fibrosis without septa F2 - portal fibrosis with few septa F3 - numerous septa without cirrhosis F4 - cirrhosis Source of fibrosis score: Fibrosure 11/11/20 Lab Results Component Value Date HCVGENOTYPE 3a 11/07/2020 HCVQNTIU 153,389 10/27/2020 HCVQNTLOGIU 5.19 10/27/2020 HCVQNTINTERP Detected (A) 10/27/2020 Lab Results Component Value Date ALT 11 03/11/2021 AST 11 03/11/2021 BUN 17 03/11/2021 CREATININE 0.78 03/11/2021 Current Outpatient Medications Medication ??? albuterol (PROVENTIL HFA;VENTOLIN HFA) 90 mcg/actuation Inhl HFA Aerosol Inhaler ??? ibuprofen (ADVIL;MOTRIN) 200 mg Oral Tablet ??? levETIRAcetam (KEPPRA) 750 mg Oral Tablet ??? DELLA 0.25-35 mg-mcg Oral Tablet ??? sofosbuvir-velpatasvir (EPCLUSA) 400-100 mg Oral Tablet ??? flu vac qv 2020,18yr up,rc,PF, (FLUBLOK QUAD 8099-5697, PF,) 180 mcg (45 mcg x 4)/0.5 mL IM Syringe ??? hepatitis B vaccine (ENGERIX-B) 20 mcg/mL IM Syringe No current facility-administered medications for this encounter. Assessment 1. Hepatitis C: Patient denies side effects. Needs to complete viral load and CMP to determine efficacy of hep c treatment. Therapy reviewed and found to be appropriate and still warranted. Pharmacist does not recommend any changes to therapy. Will plan to continue sofosbuvir/velpatasvir (Epclusa) for a total of 12 weeks pending results of viral load and CMP. Drug Interactions Drug interactions evaluated: yes Clinically relevant drug interactions identified: no Provided the patient with educational material regarding drug interactions: not applicable 2. Immunizations: Patient is due for 2nd dose of Hep B and annual flu vaccine. Patient is unsure about getting hep A vaccine due to latex allergy. Could also consider HPV and COVID vaccines. Vaccine Date(s) given/ positive serology Due date Influenza Now Hepatitis A Now Hepatitis B 01/01/21, 03/11/21 Completed PCV13 Age > 65 PPSV23 01/01/21 Age > 65 Tdap/Td 07/15/152025 HPV Could Conisder Shingrix Age > 50 COVID-19 Now Plan: 1. Patient to complete hep c ART therapy ~05/04/21 pending results of hep C viral load, CMP, and HBcAb. 2. Immunizations: Received 2nd dose Heplisav-B and flu shot today. Consider obtaining hep A vaccineand HPV vaccine if risk factors. 3. Follow-up: 12 week(s) after completing therapy with GI provider ~08/26/21. 4. Will route to referring provider once labs result. Reviewed plan of care, expected outcomes, and goals of therapy with patient who verbalized understanding and is agreeable with plan. Patient instructed to get the following labs: CMP, Hep C viral load Thank you for allowing me to participate in the care of this patient. Ritu Samaniego, PharmD, BCACP * Ritu Samaniego RPH - 03/11/2021 11:00 AM EST [facility] 10/27/2020 16:14 11/07/2020 10:42 03/11/2021 11:45 HCV Genotype 3a 3a HCV Quantitative Interpretation Detected (A) Not Detected HCV Qnt by NAAT (IU/mL) 153,389 Not Detected HCV Qnt by NAAT (log IU/mL) 5.19 Not Detected 11/07/2020 10:42 03/11/2021 11:45 ALT 20 11 AST 19 11 Bili Direct <0.2 Bili Total 0.5 0.4 Albumin 4.4 4.6 Alk Phos 65 55 Total Protein 7.3 7.8 Viral load not detected. LFTs WNL. Plan to continue current plan of Eplcusa x 12 weeks. 03/16/2021 3:39 PM Reviewed labs with patient. Agreeable to plan. Ordered 12 week f/u labs. Patient knows to follow up with GI provider 12 weeks after completing tx. Thank you for allowing me to participate in the care of this patient. Ritu Samaniego PharmD, BCACP * Itzel Ponce RPH - 03/11/2021 11:00 AM EST [facility]atitis [facility] Medication Management Clinic Patient should have completed treatment ~ 05/04/21. Calling to verify. 05/07/2021 2:00 PM Patient states she has 2 days remaining of therapy. Confirmed adherence to therapy. Patient made aware of need to follow up with GI 12 weeks after completion of therapy. 12 week post treatment labs ordered and will alert provider at this time. She will be due for labs and f/u ~ 08/01/21. Thank you for allowing me to participate in the care of this patient. Itzel Ponce PharmD documented in this encounter Miscellaneous Notes * Addendum Note - Ritu Samaniego RPH - 03/11/2021 11:00 AM ESTEncounter addended by: Ritu Samaniego RPH on: 03/16/2021 3:43 PM Actions taken: Clinical Note Signed * Addendum Note - Itzel Ponce RPH - 03/11/2021 11:00 AM Lisa addended by: Itzel Ponce RPH on: 05/07/2021 2:06 PM Actions taken: Order list changed, Diagnosis association updated, Clinical Note Signed documented in this encounter Plan of Treatment Scheduled Orders Name Type Priority Associated Diagnoses Orde r Schedule HCV RNA QUANT PCR Lab Routine Chronic hepatitis C without hepatic coma (HCC) Expected: 2021, Expires: 05/07/2022 COMPREHENSIVE METABOLIC PANEL Lab Routine Chronic hepatitis C without hepatic coma (HCC) Expected: 2021, Expires: 05/07/2022 documented as of this encounter Goals Goal Patient Goal Type Associated Problems Recent Progress Patient-Stated? Author Maintain a healthy diet, exercise regularly and maintain an ideal body weight General No Shraddha Dolan LPN Stay Tobacco Free Lifestyle No Shraddha Dolan LPN documented as of this encounter Visit Diagnoses Diagnosis Chronic hepatitis C without hepatic coma (HCC)- Primary documented in this encounter Discontinued Medications Medication Sig Discontinue Reason Start Date End Da te linaCLOtide (LINZESS) 290 mcg Oral Capsule Take 1 Capsule by mouth daily. DELETE-Therapy completed 11/19/2020 03/11/2021 polyethylene glycol (MIRALAX) 17 gram Oral Powder in Packet Take 17 g by mouth 2 times daily. DELETE-Therapy completed 11/11/2020 03/11/2021 documented as of this encounter Care Teams Hay Buckler Relationship Specialty Start Date End Date Nehemias Barron MD [address] [facility] [place] [address] PCP - General 12/01/10 Easton Thompson MD [address] [place] [address] [address] [place] [address] Physician Obstetrics & Gynecology 01/29/14 Radha Wild APRN [address] [place] [phone] Nurse Practitioner 11/04/15 documented as of this encounter
--- OUTSIDE RECORDS SUMMARY | 2024-03-07 05:03 | XMS_ITS | Encounter Summary ---
Author Organization [place] [address] Care Team Providers Care Shield Installer Name Role Phone Nehemias Barron MD Primary Care Provider [phone] Easton Thompson MD Unavailable [phone] Radha Wild APRN Unavailable [phone] Encounter Details Date Type Department Care Team (Latest Contact Info) Description 03/11/2021 11:35 AM EST - 03/11/2021 11:59 PM EST Hospital Encounter [facility] [address] [facility] [place] [address] Abdominal pain, RLQ (right lower quadrant); Chronic hepatitis C without hepatic coma (HCC) Discharge Disposition: Home or Self Care Social [...] Procedure Name Priority Date/Time Associated Diagnosis Comments HEPATITIS B CORE AB TOTAL Routine 03/11/2021 11:45 AM EST Abdominal pain, RLQ (right lower quadrant) HCV QUANT NAAT Routine 03/11/2021 11:45 AM EST Chronic hepatitis C without hepatic coma (HCC) HUMAN CHORIONIC GONADOTROPIN QUANTITATIVE Routine 03/11/2021 11:45 AM EST Abdominal pain, RLQ (right lower quadrant) COMPREHENSIVE METABOLIC PANEL Routine 03/11/2021 11:45 AM EST Chronic hepatitis C without hepatic coma (HCC) documented in this encounter Results * HCV QUANT NAAT (03/11/2021 11:45 AM EST) HCV Qnt by NAAT (IU/mL) Not Detected IU/mL 03/14/2021 12:50 PM EST [facility] HCV Qnt by NAAT (log IU/mL) Not Detected log IU/mL 03/14/2021 12:50 PM EST [facility] HCV Qnt by NAAT Interp Not Detected Not Detected 03/14/2021 12:50 PM EST [facility] Comment: INTERPRETIVE INFORMATION: HCV by Quantitative NAAT Normal range for this assay is Not Detected . The quantitative range of this assay is 10 - 100,000,000 IU/mL (1.0 - 8.0 log IU/mL). Lower limit of quantitation (LLoQ): 10 IU/mL (1.0 log IU/mL) LLoQ values do not apply to diluted specimens. A result of Not Detected does not rule out the presence of inhibitors in the patient specimen or hepatitis C virus RNA concentrations below the level of detection of the test. Care should be taken when interpreting any single viral load determination. This test should not be used for blood donor screening, associated re-entry protocols, or for screening Human Cell, Tissues and Cellular Tissue-Based Products (HCT/P). Performed by [facility], [address] [place] [address] [email or web address], Prabha Lovell MD, Lab. Director Blood VENOUS BLOOD / Unknown Venipuncture / Unknown 03/11/2021 11:45 AM EST 03/11/2021 11:45 AM EST us Brett So MD IMMUNOLOGY ORDERABLES Final Result Apartment List [facility] [address] [place] [address] * COMPREHENSIVE METABOLIC PANEL (03/11/2021 11:45 AM EST) Sodium 138 136 - 145 mmol/L 03/11/2021 12:52 PM EST [facility] Potassium 4.0 3.5 - 5.0 mmol/L 03/11/2021 12:52 PM EST [facility] Chloride 102 98 - 107 mmol/L 03/11/2021 12:52 PM EST [facility] Total CO2 23 22 - 29 mmol/L 03/11/2021 12:52 PM EST [facility] Anion Gap 13 7 - 16 mmol/L 03/11/2021 12:52 PM EST [facility] Calcium 9.5 8.6 - 10.4 mg/dL 03/11/2021 12:52 PM EST [facility] Glucose Lvl 96 74 - 100 mg/dL 03/11/2021 12:52 PM EST [facility] BUN 17 6 - 20 mg/dL 03/11/2021 12:52 PM EST [facility] Creatinine 0.78 0.51 - 1.30 mg/dL 03/11/2021 12:52 PM EST [facility] Albumin 4.6 3.5 - 5.2 gm/dL 03/11/2021 12:52 PM EST [facility] Total Protein 7.8 6.4 - 8.3 gm/dL 03/11/2021 12:52 PM EST [facility] Bili Total 0.4 0.1 - 1.3 mg/dL 03/11/2021 12:52 PM EST [facility] ALT 11 <=41 U/L 03/11/2021 12:52 PM EST [facility] AST 11 <=40 U/L 03/11/2021 12:52 PM EST [facility] Alk Phos 55 36 - 123 U/L 03/11/2021 12:52 PM EST [facility] eGFR (CKD-EPIcr 2020) 106 >=60 mL/min/1.7 3 m2 03/11/2021 12:52 PM EST [facility] Comment:Estimated GFR was ca lculated using the CKD-EPIcr (2020) equation refit without race. The equation is recommended by the National Kidney Foundation - [place] [employer] Nephrology Task Force. Blood VENOUS BLOOD / Unknown Venipuncture / Unknown 03/11/2021 11:45 AM EST 03/11/2021 11:45 AM EST Brett So MD CHEMISTRY ORDERABLES Final R esult Performing Organization Address [facility] Co de Phone Number [address] , [place] [address] [facility] [address] [place] [address] * HEPATITIS B CORE AB TOTAL (03/11/2021 11:45 AM EST) [facility] Hep B Core Total Non-Reacti ve Non-Reacti ve 03/11/2021 1:03 PM EST [facility] Blood VENOUS BLOOD / Unknown Venipuncture / Unknown 03/11/2021 11:45 AM EST 03/11/2021 11:45 AM EST us Brett So MD IMMUNOLOGY ORDERABLES Final Result Performing Organization Address City/[facility]/ZIP Co de Phone Number [address] , [address] [place] [phone] * HUMAN CHORIONIC GONADOTROPIN QUANTITATIVE (03/11/2021 11:45 AM EST) Pathologist [facility] Hcg Quant <1 <5 mIU/mL 03/11/2021 1:1 9 PM EST [facility] Blood VENOUS BLOOD / Unknown Venipuncture / Unknown 03/11/2021 11:45 AM EST 03/11/2021 11:45 AM EST Narrative [facility] - 03/11/2021 1:19 PM EST Ingestion of cindi doses of biotin (>5 mg/day) taken within 8 hours of drawing blood sample can interfere with this immunoassay test. Female (non-): 0-4.9 mIU/mL Female (postmenopausal): 0-8.1 mIU/mL Indeterminate values for (e.g., 5-25 mIU/mL) may be confirmed with a repeat test in 48-72 hours. Values in should double every 2-3 days for the first six weeks. us Brett So MD CHEMISTRY ORDERABLES Final R esult [facility] [address] [place] [address], [place] [address] documented in this encounter Visit Diagnoses Diagnosis Abdominal pain, RLQ (right lower quadrant) Abdominal pain, right lower quadrant Chronic hepatitis C without hepatic coma (HCC) documented in this encounter Care Teams Shield Installer Relationship Specialty Start Date End Date Nehemias Barron MD [address] [place] [address] PCP - General 12/01/10 Easton Thompson MD [address] [place] [address] [address] [place] [address] Physician Obstetrics & Gynecology 01/29/14 Radha Wild APRN [address] [place] [address] Nurse Practitioner 11/04/15 documented as of this encounter
--- OUTSIDE RECORDS SUMMARY | 2024-03-07 05:03 | XMS_ITS | Encounter Summary ---
Author Organization [facility] [place] [address] Care Team Providers Care Client Administrator Name Role Phone Nehemias Barron MD Primary Care Provider [phone] Easton Thompson MD Unavailable [phone] Radha Wild INTERNATIONAL AFFAIRS VICE PRESIDENT Unavailable [phone] Reason for Visit * Reason Comments Abdominal Pain Right sided x 2 year s with wkup several months ago/ pain slowly resolved over time but now back over several weeks and worse than ever + loss of appetite and occ N/V Encounter Details Date Type Department Care Team (Late st Contact Info) Description 10/11/2021 1:08 PM EDT - 10/11/2021 3:41 PM EDT [facility] [address] [facility] [place] [address] Bipin Meredith MD [address] [place] [address] Lower abdominal pain (Primary Dx) Discharge Disposition: Home or Self [...] Recorded In the last 10 days, have chery boswell been in contact with someone who was confirmed or suspected to have Coronavirus/COVID-19? No / Unsure 10/11/2021 1:03 PM EDT documented as of this encounter Last Filed Vital Signs Vital Sign Reading Time Taken Comments Blood Pressure 95/56 10/11/2021 3:23 PM EDT Pulse 94 10/11/2021 2:22 PM EDT Temperature 36.8 ??C (98.3 ??F) 10/11/2021 1:04 PM ED T Respiratory Rate 22 10/11/2021 2:22 PM EDT Oxygen Saturation 99% 10/11/2021 3:23 PM EDT Inhaled Oxygen Concentration - - Weight 54.4 kg (120 lb) 10/11/2021 1:04 PM EDT Height 165.1 cm (5' 5 ) 10/11/2021 1:04 PM EDT Body Mass Index 19.97 10/11/2021 1:04 PM EDT documented in this encounter Functional [...] Jacqueline Farfan RMA documented in this encounter Discharge Instructions * Discharge Instructions* Sage Sosa APRN - 10/11/2021 3:31 PM EDT Follow-up with your GI doctor for reevaluation. Take Bentyl and Zofran as directed. Prompt follow-up if persist worsening pain, fever, vomiting, other concerns. * Attachments The following attachments cannot be sent through Care Everywhere. * Abdominal Pain, Adult ED ([place]) documented in this encounter Medications at Time of Discharge albuterol (PROVENTIL HFA;VENTOLIN HFA) 90 mcg/actuation Inhl HFA Aerosol Inhaler Inhale 2 Puffs into the lungs every 6 hours as needed for Wheezing. levETIRAcetam (KEPPRA) 750 mg Oral TabletIndications :Seizure disorder (HCC) Take 2 Tabs by mouth 2 times daily. 120 Tab 12 10/15/2020 dicyclomine (BENTYL) 20 mg Oral Tablet Take 1 Tablet by mouth every 6 hours as needed for Other (abdominal cramping) for up to 30 days. 12 Tablet 10/11/2021 11/10/2021 documented as of this encounter Ordered Prescriptions Prescription Sig Dispense Quantity Refills Last Filled Start Date End Date ondansetron (ZOFRAN-ODT) 4 mg Oral Tablet, Rapid Dissolve Take 1 Tablet by mouth every 6 hours as needed for Nausea for up to 30 days. 10 Tablet 10/11/2021 10/25/2021 dicyclomine (BENTYL) 20 mg Oral Tablet Take 1 Tablet by mouth every 6 hours as needed for Other (abdominal cramping) for up to 30 days. 12 Tablet 10/11/2021 11/10/2021 documented in this encounter Discharge Disposition Disposition Code Departure Means Destination Comment s Home or Self Mcfp documented in this encounter ED Notes * Bipin Meredith MD - 10/11/2021 1:00 PM EDT I have reviewed the chief complaint and history of present illness and review of systems as well asthe past medical/social/family history sections for this patient. I have examined this patient, andparticipated in the care of this patient. I have reviewed the pertinent clinical information including physical exam, labs, radiographic studies and the plan. This patient was seen in coordination with PA/DIRECTOR OF SPA AND GUEST EXPERIENCE. Patient was seen Plan was discussed Bipin Meredith MD 10/11/21 1323 * Sage Sosa, INTERNATIONAL AFFAIRS VICE PRESIDENT - 10/11/2021 1:00 PM EDT Chief Complaint Patient presents with ??? Abdominal Pain Right sided x 2 years with wkup several months ago/ pain slowly resolved over time but now back over several weeks and worse than ever + loss of appetite and occ N/V Patient complains of intermittent right lower quadrant abdominal pain which is cramping in nature over the last 2 years. It had improved for several months and returned approximately 1 month ago. Intermittent constipation and diarrhea in the past. Last diarrhea stool was 3 days ago. No bowel movement since then. She reports a couple of years ago she had extensive work-up performed. She tells me she had a colonoscopy, gallbladder ultrasound, pelvic ultrasound, upper GI which she states showed noabnormal findings. Intermittent nausea with 1 episode of vomiting today. No hematemesis. No recent blood in stools. No recent recorded fevers. She reports the pain worsens with prolonged standing. Denies any recent back injuries. No pain radiation to the buttocks or legs. No saddle numbness or tingling or loss of bowel or bladder control. Historically the pain improves with diarrhea stools. Denies dysuria, hematuria. Reports intermittent urinary frequency. Known history of ovarian cyst. Historyof appendectomy. History provided by: Patient surgical attendant used: No Abdominal Pain Associated symptoms: no chest pain, no chills, no cough, no diarrhea, no dysuria, no fever, no hematuria, no nausea, no shortness of breath, no vaginal bleeding, no vaginal discharge and no vomiting Patient History Allergies Allergen Reactions ??? Latex Rash ??? Citalopram Hives ??? Effexor [Venlafaxine] Nausea And Vomiting and Other (See Comments) Shaky, lightheaded ??? Sulfa (Sulfonamide Antibiotics) Swelling and Rash throat closes up, rash, and red everywhere Home Medications: Prior to Admission medications Medication Sig Start Date End Date Taking? Authorizing Provider albuterol (PROVENTIL HFA;VENTOLIN HFA) 90 mcg/actuation Inhl HFA Aerosol Inhaler Inhale 2 Puffs into the lungs every 6 hours as needed for Wheezing. Yes Provider, Historical DELLA 0.25-35 mg-mcg Oral Tablet Take 1 Tablet by mouth daily. 01/23/21 Yes Provider, Historical ibuprofen (ADVIL;MOTRIN) 200 mg Oral Tablet Take 200 mg by mouth. Pt takes twice weekly Indications: pain Patient not taking: Reported on 10/11/2021 Provider, Historical levETIRAcetam (KEPPRA) 750 mg Oral Tablet Take 2 Tabs by mouth 2 times daily. Patient not taking: Reported on 10/11/2021 10/15/20 Nehemias Barron MD sofosbuvir-velpatasvir (EPCLUSA) 400-100 mg Oral Tablet Take 1 Tablet by mouth daily. Patient not taking: Reported on 10/11/2021 02/03/21 Brett So MD Past Medical History: Past Medical History: Diagnosis Date ??? Anemia during ??? Bladder infection in the past ??? 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 Bronchitis, chronic (HCC) ??? Cancer (HCC) melanoma back ??? Cervical dysplasia 2010, 2013 ??? Depression ppd ??? Diet controlled gestational diabetes mellitus in third trimester 06/24/2015 ??? Dizziness occassional will black out, gets dizzy, has had most of her life, family MD is aware and never has found out cause ??? Headache(784.0) ??? Hepatitis Hep C ??? 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 Knee injury chip in left knee but has problems with both knee's ??? Melanoma in situ of back (HCC) 06/2012 ??? Motion sickness ??? 06/2011 ??? Psoriasis ??? Psoriasis ??? RA (rheumatoid arthritis) (HCC) ??? Seizures (HCC) ??? UTI (urinary tract infection) had about 4-5 while ??? Vaginal bleeding 05/29/2013 has been to ER twice since biopsy 06/26/2013, has had bleeding with large clots and pain, was toldthat she has cyst on ovaries, currrently having black/mayorga stringy discharge , Dr Castellanos office has been informed of this by patient on 06/22/2013 and they were not able to see patient in office before surgery Social History: reports that she has been smoking cigarettes. She started smoking about 16 years ago. She has a 8.00 pack-year smoking history. She has never used smokeless tobacco. She reports current drug use. Drug: Cocaine. She reports being sexually active and has had partner(s) who are male. She reports that she does not drink alcohol. E-Cigarettes (such as Vapes or Juul) ??? E-Cigarette Use Never User Family History: Family History Problem Relation Age of Onset ??? Colon Polyps Mother ??? Colon Polyps Father ??? Cancer Maternal Grandmother melanoma ??? Diverticulitis Maternal Grandmother ??? Diverticulitis Maternal Grandfather ??? Anesth Problems Neg Hx Surgical History: Past Surgical History: Procedure Laterality Date ??? APPENDECTOMY age 7 ??? CERVIX BIOPSY 2010, 05/29/2013 ??? COLONOSCOPY N/A 11/19/2020 Colonoscopy ; Surgeon: Brett So MD; Location: [facility] END[facility]COPY; Service: Endoscopy ??? DILATION AND CURETTAGE OF UTERUS N/A 02/20/2014 DILATION & CURETTAGE SUCTION EVACUATION FOR MISSCARRIAGE ; Surgeon: Kash Tabares MD; Location: ED MAIN OR; Service: Gynecology ??? LEEP N/A 06/27/2013 LOOP EXCISION PROCEDURE (LEEP); Surgeon: Sachin Castellanos MD; Location: [facility] MAIN OR; Service: Gynecology ??? SKIN CANCER EXCISION 06/2012 melanoma back ??? UPPER GASTROINTESTINAL ENDOSCOPY N/A 11/19/2020 Esophagogastroduodenoscopy ; Surgeon: Brett So MD; Location: [facility] ENDOSCOPY; Service: Endoscopy Review of Systems Review of Systems Constitutional: Negative for chills and fever. HENT: Negative. Eyes: Negative. Respiratory: Negative for cough and shortness of breath. Cardiovascular: Negative for chest pain, palpitations and leg swelling. Gastrointestinal: Positive for abdominal pain. Negative for diarrhea, nausea and vomiting. Genitourinary: Positive for flank pain and frequency. Negative for dysuria, hematuria, vaginal bleeding, vaginal discharge and vaginal pain. Skin: Negative for rash. Neurological: Negative. Psychiatric/Behavioral: Negative. All other systems reviewed and are negative. Physical Exam Blood pressure 123/53, pulse 95, temperature 98.3 ??F (36.8 ??C), temperature source Skin, resp. rate 19, height 5' 5 (1.651 m), weight 120 lb (54.4 kg), last menstrual period 09/30/2021, SpO2 98 %,not currently . Physical Exam Vitals and nursing note reviewed. Constitutional: Appearance: She is well-developed. HENT: Head: Normocephalic. Cardiovascular: Rate and Rhythm: Normal rate and regular rhythm. Heart sounds: Normal heart sounds. Pulmonary: Effort: Pulmonary effort is normal. No respiratory distress. Breath sounds: Normal breath sounds. Abdominal: General: Bowel sounds are normal. Palpations: Abdomen is soft. Tenderness: There is abdominal tenderness in the right lower quadrant and periumbilical area. Skin: General: Skin is warm and dry. Neurological: General: No focal deficit present. Mental Status: She is alert and oriented to person, place, and time. Psychiatric: Mood and Affect: Mood normal. Procedures Radiology/EKG/Labs: Results for orders placed or performed during the hospital encounter of 10/11/21 URINALYSIS Result Value Ref Range UA Color Yellow UA Appear Hazy (A) Clear UA Glucose Negative Negative mg/dL UA Ketones Negative Negative mg/dL UA Blood Trace-Intact (A) Negative UA pH 6.0 5.0 - 8.0 pH UA Protein Negative Negative mg/dL UA Urobilinogen 0.2 <=1 mg/dL UA Bili Negative Negative UA Nitrite Negative Negative UA Leuk Est Negative Negative UA Spec Grav >=1.030 1.001 - 1.035 no units UA WBC 2 0 - 4 /HPF UA RBC 4 (H) 0 - 3 /HPF UA Squam Epi 2+ /LPF UA Mucus 1+ /LPF UA Bacteria 2+ (A) Negative /HPF CBC WITH DIFF Result Value Ref Range WBC 2.9 (L) 3.7 - 10.3 x10(3)/mcL RBC 4.00 3.90 - 5.20 x10(6)/mcL Hgb 12.5 11.2 - 15.7 g/dL Hct 37.8 34.0 - 45.0 % MCV 94.5 80.0 - 100.0 fL MCH 31.3 26.0 - 34.0 pg MCHC 33.1 30.7 - 35.5 g/dL RDW 11.7 <=14.9 % Platelet 176 155 - 369 x10(3)/mcL MPV 10.1 8.8 - 12.5 fL Neut Percent 49.2 % Imm Gran% 0.0 % Lymph Percent 39.9 % Camp Percent 7.9 % Eos Percent 2.7 % Baso Percent 0.3 % Neut # 1.4 (L) 1.6 - 6.1 x10(3)/mcL IMMGRAN# 0.0 0.0 - 0.1 x10(3)/mcL Lymph # 1.2 1.2 - 3.9 x10(3)/mcL Camp # 0.2 (L) 0.3 - 0.9 x10(3)/mcL Eos# 0.1 0.0 - 0.5 x10(3)/mcL Baso # 0.0 0.0 - 0.1 x10(3)/mcL COMPREHENSIVE METABOLIC PANEL Result Value Ref Range Sodium 137 136 - 145 mmol/L Potassium 4.0 3.5 - 5.0 mmol/L Chloride 104 98 - 107 mmol/L Total CO2 26 22 - 29 mmol/L Anion Gap 7 7 - 16 mmol/L Calcium 9.3 8.6 - 10.4 mg/dL Glucose Lvl 72 (L) 74 - 100 mg/dL BUN 14 6 - 20 mg/dL Creatinine 0.70 0.51 - 1.30 mg/dL Albumin 4.4 3.5 - 5.2 gm/dL Total Protein 6.5 6.4 - 8.3 gm/dL Bili Total 0.6 0.1 - 1.3 mg/dL ALT 13 <=41 U/L AST 12 <=40 U/L Alk Phos 56 36 - 123 U/L eGFR (CKD-EPIcr 2020) 119 >=60 mL/min/1.73 m2 HUMAN CHORIONIC GONADOTROPIN QUANTITATIVE Result Value Ref Range Hcg Quant <1 <5 mIU/mL Narrative Ingestion of cindi doses of biotin (>5 mg/day) taken within 8 hours of drawing blood sample can interfere with this immunoassay test. Female (non-): 0-4.9 mIU/mL Female (postmenopausal): 0-8.1 mIU/mL Indeterminate values for (e.g., 5-25 mIU/mL) may be confirmed with a repeat test in 48-72hours. Values in should double every 2-3 days for the first six weeks. ED Course: Appropriate laboratory and radiology studies reviewed Patient presents with lower abdominal pain. Laboratory and radiology findings noted above. Pain resolved with Percocet, Bentyl in the department. No nausea at time of discharge after Zofran administration. Instructed to follow-up with her GI doctor for reevaluation. Prompt follow-up instructions given. Prescription for Zofran and Bentyl given. ED Clinical Impression: Lower abdominal pain Critical Care time Condition at Discharge/Transfer from Department: Stable This chart was completed using voice recognition technology and may contain unintended errors Sage Sosa APRN 10/11/21 1532 Cosigned by Bipin Meredith MD at 10/12/2021 10:10 PM EDT Associated attestation - Bipin Meredith MD - 10/12/2021 10:10 PM EDT Please see my note This chart was completed using voice recognition technology and may contain unintended errors documented in this encounter Plan of Treatment Not on file documented as of this encounter Goals Goal Patient Goal Type Associated Problems Recent Progress Patient-Stated? Author Maintain a healthy diet, exercise regularly and maintain an ideal body weight General Shraddha Reyes LPN Stay Tobacco Free Lifestyle No Shraddha Dolan LPN documented as of this encounter Procedures Procedure Name Priority Date/Time Associated Diagnosis Comments CBC WITH DIFF STAT 10/11/2021 2:14 PM EDT HUMAN CHORIONIC GONADOTROPIN QUANTITATIVE STAT 10/11/2021 2:14 PM EDT COMPREHENSIVE METABOLIC PANEL STAT 10/11/2021 2:14 PM EDT EXTRA DRISCOLL URINE CX STAT 10/11/2021 1 :20 PM EDT URINALYSIS STAT 10/11/2021 1:20 PM EDT documented in this encounter Results * HUMAN CHORIONIC GONADOTROPIN QUANTITATIVE (10/11/2021 2:14 PM EDT) Pathologist [facility] Hcg Quant <1 <5 mIU/mL 10/11/2021 2:35 PM EDT [facility] Blood VENOUS BLOOD / Unknown Venipuncture / Unknown 10/11/2021 2:14 PM EDT 10/11/2021 2:16 PM EDT Narrative [facility] - 10/11/2021 2:35 PM EDT Ingestion of cindi doses of biotin (>5 mg/day) taken within 8 hours of drawing blood sample can interfere with this immunoassay test. Female (non-): 0-4.9 mIU/mL Female (postmenopausal): 0-8.1 mIU/mL Indeterminate values for (e.g., 5-25 mIU/mL) may be confirmed with a repeat test in 48-72 hours. Values in should double every 2-3 days for the first six weeks. us Sage Sosa INTERNATIONAL AFFAIRS VICE PRESIDENT CHEMISTRY ORDERABLES Kim l Result [facility] [address] [place] [address] * (ABNORMAL) COMPREHENSIVE METABOLIC PANEL (10/11/2021 2:14 PM EDT) [facility] Sodium 137 136 - 145 mmol/L 10/11/2021 2:40 PM EDT [facility] Potassium 4.0 3.5 - 5.0 mmol/L 10/11/2021 2:40 PM EDT [facility] Chloride 104 98 - 107 mmol/L 10/11/2021 2:40 PM EDT [facility] Total CO2 26 22 - 29 mmol/L 10/11/2021 2:40 PM EDT [facility] Anion Gap 7 7 - 16 mmol/L 10/11/2021 2:40 PM EDT [facility] Calcium 9.3 8.6 - 10.4 mg/dL 10/11/2021 2:40 PM T [facility] Glucose Lvl 72(L) 74 - 100 mg/dL 10/11/2021 2:40 PM EDT [facility] BUN 14 6 - 20 mg/dL 10/11/2021 2:40 PM EDT [facility] Creatinine 0.70 0.51 - 1.30 mg/dL 10/11/2021 2:40 PM EDT [facility] Albumin 4.4 3.5 - 5.2 gm/dL 10/11/2021 2:40 PM T [facility] Total Protein 6.5 6.4 - 8.3 gm/dL 10/11/2021 2:40 PM T [facility] Bili Total 0.6 0.1 - 1.3 mg/dL 10/11/2021 2:40 PM EDT [facility] ALT 13 <=41 U/L 10/11/2021 2:40 PM EDT [facility] AST 12 <=40 U/L 10/11/2021 2:40 PM T [facility] Alk Phos 56 36 - 123 U/L 10/11/2021 2:40 PM T [facility] eGFR (CKD-EPIcr 2020) 119 >=60 mL/min/1.7 3 m2 10/11/2021 2:40 PM T [facility] Comment:Estimated GFR was ca lculated using the CKD-EPIcr (2020) equation refit without race. The equation is recommended by the [employer] - [place] [employer] of Neph[employer] Task Force. Blood VENOUS BLOOD / Unknown Venipuncture / Unknown 10/11/2021 2:14 PM EDT 10/11/2021 2:16 PM EDT us Sage Sosa INTERNATIONAL AFFAIRS VICE PRESIDENT CHEMISTRY ORDERABLES Kim l Result [facility] [address] [place] [address] * (ABNORMAL) CBC WITH DIFF (10/11/2021 2:14 PM EDT) WBC 2.9(L) 3.7 - 10.3 x10(3)/mcL 10/11/2021 2:41 PM EDT [facility] RBC 4.00 3.90 - 5.20 x10(6)/mcL 10/11/2021 2:41 PM EDT [facility] Hgb 12.5 11.2 - 15.7 g/dL 10/11/2021 2:41 PM EDT [facility] Hct 37.8 34.0 - 45.0 % 10/11/2021 2:41 PM EDT [facility] MCV 94.5 80.0 - 100.0 fL 10/11/2021 2:41 PM EDT [facility] MCH 31.3 26.0 - 34.0 pg 10/11/2021 2:41 PM EDT [facility] MCHC 33.1 30.7 - 35.5 g/dL 10/11/2021 2:41 PM EDT [facility] RDW 11.7 <=14.9 % 10/11/2021 2:41 PM EDT [facility] Platelet 176 155 - 369 x10(3)/mcL 10/11/2021 2:41 PM EDT [facility] MPV 10.1 8.8 - 12.5 fL 10/11/2021 2:41 PM EDT [facility] Neut Percent 49.2 % 10/11/2021 2:41 PM EDT [facility] Comment:Neutrophils equals s egs plus bands Imm Gran% 0.0 % 10/11/2021 2:41 PM EDT [facility] Comment:Automated count of m etamyelocytes, myelocytes and promyelocytes. Lymph Percent 39.9 % 10/11/2021 2:41 PM EDT [facility] Camp Percent 7.9 % 10/11/2021 2:41 PM EDT [facility] Eos Percent 2.7 % 10/11/2021 2:41 PM EDT [facility] Baso Percent 0.3 % 10/11/2021 2:41 PM EDT [facility] Neut # 1.4(L) 1.6 - 6.1 x10(3)/[facility] 10/11/2021 2:41 PM EDT [facility] Comment:Neutrophils equals s egs plus bands IMMGRAN# 0.0 0.0 - 0.1 x10(3)/[facility] 10/11/2021 2:41 PM EDT [facility] Comment:Automated count of m etamyelocytes, myelocytes and promyelocytes. An absolute IG <0.1 is reported as 0.0. Lymph # 1.2 1.2 - 3.9 x10(3)/[facility] 10/11/2021 2:41 PM EDT [facility] Camp # 0.2(L) 0.3 - 0.9 x10(3)/[facility] 10/11/2021 2:41 PM EDT [facility] Eos# 0.1 0.0 - 0.5 x10(3)/[facility] 10/11/2021 2:41 PM EDT [facility] Baso # 0.0 0.0 - 0.1 x10(3)/[facility] 10/11/2021 2:41 PM EDT [facility] Blood VENOUS BLOOD / Unknown Venipuncture / Unknown 10/11/2021 2:14 PM EDT 10/11/2021 2:16 PM EDT us Sage Sosa INTERNATIONAL AFFAIRS VICE PRESIDENT HEMATOLOGY ORDERABLES Fin al Result Performing Organization Address [facility] Co de Phone Number [facility] [address] [place] [address] * EXTRA DRISCOLL URINE CX (10/11/2021 1:20 PM EDT) Urine URINE SPECIMEN COLLECTION, CLEAN CATCH / Unknown 10/11/2021 1:20 PM EDT 10/11/2021 2:16 PM EDT Sage Sosa INTERNATIONAL AFFAIRS VICE PRESIDENT MICROBIOLOGY - GENERAL OR DERABLES Final Result Performing Organization Address [facility] Co de Phone Number [facility] [address] [place] [address] * (ABNORMAL) URINALYSIS (10/11/2021 1:20 PM EDT) UA Color Yellow 10/11/2021 2:37 PM EDT [facility] UA Appear Hazy(A) Clear 10/11/2021 2:37 PM EDT [facility] UA Glucose Negative Negative mg/dL 10/11/2021 2:37 PM EDT [facility] UA Ketones Negative Negative mg/dL 10/11/2021 2:37 PM EDT [facility] UA Blood Trace-Intac t(A) Negative 10/11/2021 2:37 PM EDT [facility] UA pH 6.0 5.0 - 8.0 pH 10/11/2021 2:37 PM EDT [facility] UA Protein Negative Negative mg/dL 10/11/2021 2:37 PM EDT [facility] UA Urobilinogen 0.2 <=1 mg/dL 2:37 PM EDT [facility] UA Bili Negative Negative 10/11/2021 2:37 PM EDT [facility] UA Nitrite Negative Negative 10/11/2021 2:37 PM EDT [facility] UA Leuk Est Negative Negative 10/11/2021 2:37 PM EDT [facility] UA Spec Grav >=1.030 1.001 - 1.035 no units 10/11/2021 2:37 PM EDT [facility] Comment:Reference range kp d for random specimens only. UA WBC 2 0 - 4 /HPF 10/11/2021 2:37 PM EDT [facility] UA RBC 4(H) 0 - 3 /HPF 10/11/2021 2:37 PM EDT [facility] UA Squam Epi 2+ /LPF 10/11/2021 2:37 PM EDT [facility] UA Mucus 1+ /LPF 10/11/2021 2:37 PM EDT [facility] UA Bacteria 2+(A) Negative /HPF 10/11/2021 2:37 PM T [facility] Urine URINE SPECIMEN COLLECTION, CLEAN CATCH / Unknown 10/11/2021 1:20 PM EDT 10/11/2021 2:16 PM EDT us Sage Sosa APRN URINE ORDERABLES Final Re sult [facility] [address] [place] [address] documented in this encounter Visit Diagnoses Diagnosis Lower abdominal pain- Primary Abdominal pain, other specified site documented in this encounter Administered Medications Inactive Administered Medications - up to 1 most recent administrations Medication Order MAR Action Action Date Dose Rate Site dicyclomine (BENTYL) tablet 20 mg 20 mg, Oral, ONCE, 1 dose, On 10/11/21 at 1345 Given 10/11/2021 2:18 PM EDT 20 mg ondansetron (ZOFRAN-ODT) disintegrating tablet 4 mg 4 mg, Oral, ONCE, 1 dose, On 10/11/21 at 1345, Dissolve in mouth Given 10/11/2021 2:19 PM EDT 4 mg oxyCODONE-acetaminophen (PERCOCET) 5-325 mg per tablet 1 Tablet 1 Tablet, Oral, ONCE, 1 dose, On 10/11/21 at 1345, Maximum adult dose of acetaminophen is 4000 mg from all sources in 24 hours. Given 10/11/2021 2:18 PM EDT 1 Tablet documented in this encounter Active and Recently Administered Medications Times are shown in EDT. Scheduled Medication Order 10/09/2021 10/10/2021 10/11/2021 dicyclomine (BENTYL) tablet 20 mg (COMPLETED) 20 mg, Oral, ONCE, 1 dose, On 10/11/21 at 1345 1418 (Given - Provid er: Shantell Hanson, RN) ondansetron (ZOFRAN-ODT) disintegrating tablet 4 mg (COMPLETED) 4 mg, Oral, ONCE, 1 dose, On 10/11/21 at 1345, Dissolve in mouth 1419 (Given - Provid er: Shantell Hanson, OSCAR) oxyCODONE-acetaminophen (PERCOCET) 5-325 mg per tablet 1 Tablet (COMPLETED) 1 Tablet, Oral, ONCE, 1 dose, On 10/11/21 at 1345, Maximum adult dose of acetaminophen is 4000 mg from all sources in 24 hours. 1418 (Given - Provid er: Shantell Hanson RN) documented in this encounter Care Teams Client Administrator Relationship Specialty Start Date End Date Nehemias Barron MD [address] [place] [address] PCP - General 12/01/10 Easton Thompson MD [address] [place] [address] [address] [place] [address] Physician Obstetrics & Gynecology 01/29/14 Radha Wild APRN [address] [place] [address] Nurse Practitioner 11/04/15 documented as of this encounter
--- OUTSIDE RECORDS SUMMARY | 2024-03-07 05:03 | XMS_ITS | Encounter Summary ---
Author Organization [facility] [place] [address] Care Team Providers Care Nutrition Partner Name Role Phone Nehemias Barron MD Primary Care Provider [phone] Easton Thompson MD Unavailable [phone] Radha Wild REGISTERED RESPIRATORY THERAPIST Unavailable [phone] Encounter Details Date Type Department Care Team (Latest Contact Info) Description 03/11/2021 Travel Social History Tobacco Use Types Packs/Day [...] Author No 10/27/2020 3:29 PM EDT Anel Hope, RMA * Does this person have serious [...] Anel Hope RMA documented in this encounter Plan of Treatment [...] on filedocumented in this encounter Care Teams Nutrition Partner Relationship Specialty Start Date End Date Nehemias Barron MD [address] [place] [address] PCP - General 12/01/10 Easton Thompson MD [address] [place] [address] [address] [place] [address] Physician Obstetrics & Gynecology 01/29/14 Radha Wild APRN [address] [facility] [place] [address] Nurse Practitioner 11/04/15 documented as of this encounter
--- OUTSIDE RECORDS SUMMARY | 2024-03-07 05:03 | XMS_ITS | Encounter Summary ---
Author Organization [place] [address] Care Team Providers Care Slitter Scorer Name Role Phone Nehemias Barron MD Primary Care Provider [phone] Easton Thompson MD Unavailable [phone] Radha Wild PATENT EXAMINER Unavailable [phone] Encounter Details Date Type Department Care Team (Latest Contact Info) Description 12/29/2021 12:45 PM EDT Telemedicine [facility] [address] [facility] [place] [address] Nehemias Barron MD [address] [place] [address] COVID-19 virus infection (Primary Dx); Nausea and vomiting, unspecified vomiting type; History of asthma Social History Tobacco Use Types Packs/Day Years [...] Jacqueline Farfan RMA documented in this encounter Ordered Prescriptions Prescription Sig Dispense Quantity Refills Last Filled Start Date End Date ondansetron (ZOFRAN-ODT) 4 mg Oral Tablet, Rapid DissolveIndicatio ns:Nausea and vomiting, unspecified vomiting type Take 1 Tablet by mouth every 6 hours as needed for Nausea. 20 Tablet 12/29/2021 nirmatrelvir-dequan navir (PAXLOVID) Oral tablets therapy packIndications:C OVID-19 virus infection Take two tablets of nirmatrelvir (300 mg) and one tablet of ritonavir (100 mg) together orally twice daily for 5 days 30 Tablet 12/29/2021 2 documented in this encounter Progress Notes * Nehemias Barron MD - 12/29/2021 12:45 PM EDT Patient presented today for routine care follow-up through a video visit. Patient has reviewed the terms and conditions of service as part of the registration for today's visit. A video visit does not replace a lrly-mc-ffiz exam and further services may be necessary. We are conducting her video visit in a private space and this video visit is being conducted in accordance with state telehealth/video visit regulations. HPI: Symptoms began on SAT 12/26 NV, mild viviane, body aches No fever Tested positive on MON 12/28 Hx asthma, no sob, no cps Review of Systems All other systems reviewed and are negative. Exam: Constitutional: NAD, appropriately groomed. Appears comfortable. [...] Diagnoses and all orders for this visit: COVID-19 virus infection - nirmatrelvir-ritonavir (PAXLOVID) Oral tablets therapy pack; Take two tablets of nirmatrelvir (300 mg) and one tablet of ritonavir (100 mg) together orally twice daily for 5 days Dispense: 30 Tablet; Refill: 0 Nausea and vomiting, unspecified vomiting type - ondansetron (ZOFRAN-ODT) 4 mg Oral Tablet, Rapid Dissolve; Take 1 Tablet by mouth every 6 hours as needed for Nausea. Dispense: 20 Tablet; Refill: 0 History of asthma With hx asthma, will tx with paxlovid will need to quarantine for 5 days from symptom onset. As long as no fever and symptoms are resolved or improving, may come out of quarantine after day #5. Should continue to wear a well fitting maskaround others for 5 additional days. If develops significant symptoms, especially worsening chest pains or shortness of breath, should go to the ER. documented in this encounter Plan of Treatment Not on file documented as of this encounter Goals Goal Patient Goal Type Associated Problems Recent Progress Patient-Stated? Author Maintain a healthy diet, exercise regularly and maintain an ideal body weight General No Kelsi, Shraddha Ellen, CONSTRUCTION CARPENTER Stay Tobacco Free Lifestyle No Shraddha Dolan LPN documented as of this encounter Visit Diagnoses Diagnosis COVID-19 virus infection- Primary Nausea and vomiting, unspecified vomiting type History of asthma Personal history of other diseases of respiratory system documented in this encounter Discontinued Medications Medication Sig Discontinue Reason Start Date End Da te DELLA 0.25-35 mg-mcg Oral Tablet Take 1 Tablet by mouth daily. DELETE-Therapy completed 01/23/2021 12/29/2021 sofosbuvir-velpatasvir (EPCLUSA) 400-100 mg Oral TabletIndications:Manometer Technician marisol hepatitis C without hepatic coma (HCC) Take 1 Tablet by mouth daily. DELETE-Therapy completed 02/03/2021 12/29/2021 documented as of this encounter Care Teams Slitter Scorer Relationship Specialty Start Date End Date Nehemias Barron MD [address] [place] [address] PCP - General 12/01/10 Easton Thompson MD [address] [place] [address] [address] [place] [address] Physician Obstetrics & Gynecology 01/29/14 Radha Wild APRN [address] [place] [address] Nurse Practitioner 11/04/15 documented as of this encounter
--- OUTSIDE RECORDS SUMMARY | 2024-03-07 05:03 | XMS_ITS | Encounter Summary ---
Author Organization [place] [address] Care Team Providers Care Document Review Specialist Name Role Phone Nehemias Barron MD Primary Care Provider [phone] Easton Thompson MD Unavailable [phone] Radha Wild APRN Unavailable [phone] Reason for Visit * Reason Onset Date Comments Appointment Needed 05/19/2021 Encounter Details Date Type Department Care Team (Late st Contact Info) Description 05/19/2021 Telephone [facility] [address] [address] Divina Driscoll LPN Appointment Needed Social History Tobacco Use Types Packs/Day Years [...] of Assessment Author No 10/27/2020 3:29 PM EDAnel Shipman RMA documented as of this encounter Mental Status * Because of a physical, mental or emotional condition, does this person have serious difficulty concentrating, remembering or making decisions? Answer Entry Date Author No 10/27/2020 3:29 PM EDAnel Shipman RMA documented in this encounter Miscellaneous Notes * Telephone Encounter - Divina Cavazos LPN - 05/19/2021 8:25 AM EST Attempted to call patient. Voicemail not set up. Will send a MC message to have patient call to schedule appointment for Marjorie around 08/04/21. * Telephone Encounter - Divina Cavazos LPN - 05/19/2021 8:24 AM EST ----- Message from Brett So MD sent at 05/11/2021 9:41 AM EST ----- Regarding: office f/u Can we set up for office follow up around August 01. Thanks. Will need HCV viral load beforehand. ----- Message ----- From: Itzel Ponce [facility] Sent: 05/07/2021 2:06 PM EST To: Brett So MD Hi Dr. So, Patient will complete 12 weeks of Epclusa in 2 days. She will be due for 12 week post treatment f/uwith your office ~ 08/01/21. Post treatment labs have already been ordered for patient. Thank you, Itzel Ponce, PharmD documented in this encounter Plan of Treatment [...] coma (HCC)- Primary documented in this encounter Care Teams Document Review Specialist Relationship Specialty Start Date End Date Nehemias Barron MD [address] [place] [address] PCP - General 12/01/10 Easton Thompson MD [address] [place] [address] [address] [place] [address] Physician Obstetrics & Gynecology 01/29/14 Radha Wild APRN [address] [place] [address] Nurse Practitioner 11/04/15 documented as of this encounter
--- OUTSIDE RECORDS SUMMARY | 2024-03-07 05:03 | XMS_ITS | Encounter Summary ---
Author Organization [place] [address] Care Team Providers Care Nail Sticker Name Role Phone Nehemias Barron MD Primary Care Provider [phone] Easton Thompson MD Unavailable [phone] Radha Wild APRN Unavailable [phone] Encounter Details Date Type Department Care Team (Latest Contact Info) Description 03/11/2021 10:45 AM EST - 03/11/2021 10:58 AM EST Hospital Encounter EDG MED [facility] [address] [facility] [address] [place] [id number] Discharge Disposition: Home or Self Care Social [...] No 10/27/2020 3:29 PM EDAnel Shipman RMA * Does this person have serious difficulty walking or climbing stairs? Answer Date of Assessment Author No 10/27/2020 3:29 PM EDAnel Shipman RMA * Does this person have difficulty dressing or bathing? Answer Date of Assessment Author No 10/27/2020 3:29 PM EDAnel Shipman RMA * Because of a physical, mental [...] Notes * Ritu Samaniego RPH - 03/11/2021 10:45 AM EST Immunizations clinic-Hepatitis B Vaccine (Engerix-B) Are you sick or feverish today?no Have you ever had a serious reaction to Rubber, Latex, or Yeast?yes - latex (tolerated 1st dose) Have you ever had a serious reaction after receiving a vaccination?no For women: Are you or could you become in the next month?no VIS provider to patient or patients guardian/legal rep?yes Benefits/Risks discussed with the patient or guardian/legal rep prior to administration?yes Patient advised to stay on campus for 15 minutes to monitor for adverse reactions. Pharmacy Immunization Clinic - Influenza ??? Are you sick or feverish today? no ??? Have you ever had a serious reaction after receiving a vaccination?no ??? Are you allergic to chicken eggs, eggs, or latex? yes - latex ??? Are you allergic to thimerosal (mercury, contact solution)? no ??? For women: Are you or could you become in the next month?no ??? Have you had a seizure, brain, or other nervous system problem or have had a disorder that resulted from a vaccine (e.g. Guillain-[place] Syndrome)? no ??? VIS provider to the patient or patients guardian/legal patient registration representative prior to administration?yes ??? Benefits/Risks discussed with the patient or patients guardian/legal rep?yes Patient advised to remain on campus for 15 minutes after vaccine administration. Thank you for allowing me to participate in the care of this patient. Ritu Samaniego, PharmD, BCACP documented in this encounter Plan of Treatment [...] on filedocumented in this encounter Care Teams Nail Sticker Relationship Specialty Start Date End Date Nehemias Barron MD [address] [place] [address] PCP - General 12/01/10 Easton Thompson MD [address] [place] [address] [address] [place] [address] Physician Obstetrics & Gynecology 01/29/14 Radha Wild APRN [address] [facility] [place] [id number] Nurse Practitioner 11/04/15 documented as of this encounter
--- OUTSIDE RECORDS SUMMARY | 2024-03-07 05:03 | XMS_ITS | Encounter Summary ---
Author Organization [place] [address] Care Team Providers Care Heavy Equipment Rental Associate Name Role Phone Nehemias Barron MD Primary Care Provider Easton Thompson MD Unavailable [phone] Radha Wild APRN Unavailable [phone] Reason for Visit * Reason Comments Headache Chills Cough Emesis Sore Throat Insect Bite On abdomen Menstrual Problem Very frequent period s Encounter Details Date Type Department Care Team (Late st Contact Info) Description 08/24/2021 2:30 PM EDT Office Visit [facility] [address] [place] [address] Radha Wild, SERVICE CORRESPONDENT [address] [place] [address] Cough (Primary Dx); Sore throat; Tick bite of abdomen, initial encounter; Menstrual irregularity Social History Tobacco Use Types Packs/Day Years [...] Sign Reading Time Taken Comments Blood Pressure 110/60 08/24/2021 2:34 PM EDT Pulse 96 08/24/2021 2:34 PM EDT Temperature 36.6 ??C (97.9 ??F) 08/24/2021 2:34 PM ED T Respiratory Rate 18 08/24/2021 2:34 PM EDT Oxygen Saturation 98% 08/24/2021 2:34 PM EDT Inhaled Oxygen Concentration - - Weight 55.7 kg (122 lb 12.8 oz) 08/24/2021 2:34 PM EDT Height 165.1 cm (5' 5 ) 08/24/2021 2:34 PM EDT Body Mass Index 20.43 08/24/2021 2:34 PM EDT documented in this encounter Functional [...] Refills Last Filled Start Date End Date doxycycline hyclate (VIBRA-TABS) 100 mg Oral TabletIndications: Tick bite of abdomen, initial encounter Take 1 Tablet by mouth 2 times daily for 14 days. 28 Tablet 08/24/2021 09/07/2021 documented in this encounter Progress Notes * Radha Wild APRN - 08/24/2021 2:30 PM EDT Assessment Diagnoses and all orders for this visit: Cough - POCT PAM SARS ANTIGEN - POCT INFLUENZA A/B Sore throat - POCT RAPID STREP A Tick bite of abdomen, initial encounter - LYME ABS, IGG AND IGM BY IMMUNOBLOT-REF LAB; Future - doxycycline hyclate (VIBRA-TABS) 100 mg Oral Tablet; Take 1 Tablet by mouth 2 times daily for 14 days. Dispense: 28 Tablet; Refill: 0 Menstrual irregularity - THYROID STIMULATING HORMONE; Future - T4, FREE (THYROXINE); Future - CBC WITH DIFF; Future - COMPREHENSIVE METABOLIC PANEL; Future Progress Note: Vitals: 08/24/21 1434 BP: 110/60 BP Location: Right arm Patient Position: Sitting Pulse: 96 Resp: 18 Temp: 97.9 ??F (36.6 ??C) TempSrc: Forehead SpO2: 98% Weight: 122 lb 12.8 oz (55.7 kg) Height: 5' 5 (1.651 m) SUBJECTIVE: Chief Complaint Patient presents with ??? Headache ??? Chills ??? Cough ??? Emesis ??? Sore Throat ??? Insect Bite On abdomen ??? Menstrual Problem Very frequent periods HPI: Started three days ago with headache, dizzy, nausea, headache, sore throat. Started having chills. Bit by tick just before symptom onset. States tick bite site now red, firm, getting larger. States past couple months periods have become irregular. Will bleed more frequently, bleeding coming without regularity. Taking control as directed. Review of Systems HENT: Positive for congestion, sinus pressure and sinus pain. Respiratory: Positive for cough. Genitourinary: Positive for menstrual problem. Neurological: Positive for headaches. OBJECTIVE: Physical Exam Vitals and nursing note reviewed. Constitutional: Appearance: Normal appearance. HENT: Mouth/Throat: Mouth: Mucous membranes are moist. Cardiovascular: Rate and Rhythm: Normal rate and regular rhythm. Pulmonary: Effort: Pulmonary effort is normal. Breath sounds: Normal breath sounds. Skin: Findings: Erythema (below umbilicus at site of tick bite.) present. Neurological: Mental Status: She is alert. documented in this encounter Plan of Treatment Not on file documented as of this encounter Goals Goal Patient Goal Type Associated Problems Recent Progress Patient-Stated? Author Maintain a healthy diet, exercise regularly and maintain an ideal body weight General Shraddha Reyes LPN Stay Tobacco Free Lifestyle Shraddha Reyes LPN documented as of this encounter Procedures Procedure Name Priority Date/Time Associated Diagnosis Comments LYME ABS, IGG AND IGM BY IMMUNOBLOT-REF LAB Routine 08/24/2021 3:15 PM EDT Tick bite of abdomen, initial encounter CBC WITH DIFF Routine 08/24/2021 3:15 PM EDT Menstrual irregularity THYROID STIMULATING HORMONE Routine 08/24/2021 3:15 PM EDT Menstrual irregularity T4, FREE (THYROXINE) Routine 08/24/2021 3:15 PM EDT Menstrual irregularity COMPREHENSIVE METABOLIC PANEL Routine 08/24/2021 3:15 PM EDT Menstrual irregularity POCT PAM SARS ANTIGEN Routine 08/24/2021 2:57 PM EDT Cough POCT INFLUENZA A/B Routine 08/24/2021 2: 57 PM EDT Cough POCT RAPID STREP A Routine 08/24/2021 2: 49 PM EDT Sore throat documented in this encounter Results * (ABNORMAL) LYME ABS, IGG AND IGM BY IMMUNOBLOT-REF LAB (08/24/2021 3:15 PM EDT) B. burgdorferi IgG Immunoblot Negative Negative 08/26/2021 2:31 PM EDT [employer] Comment: Band(s) present: 93, 66, 58 kDa (Insufficient number of bands for positive result) INTERPRETIVE INFORMATION: B. burgdorferi IgG Immunoblot For this assay, a positive result is reported when any 5 or more of the following 10 bands are present: 18, 23, 28, 30, 39, 41, 45, 58, 66, or 93 kDa. ??All other banding patterns are reported as negative. B. burgdorferi IgM Immunoblot Positive(A) Negative 08/26/2021 2:31 PM EDT [employer] Comment: Band(s) present: 41, 23 kDa INTERPRETIVE INFORMATION: B. burgdorferi Antibody IgM ?Immunoblot For this assay, a positive result is reported when any 2 or more of the following bands are present: 23, 39, or 41 kDa. ??All other banding patterns are reported as negative. Performed By: [facility] [address] [place] [address] Manpower Development Specialist Manager: Prabha Lovell MD Blood VENOUS BLOOD / Unknown Venipuncture / Unknown 08/24/2021 3:15 PM EDT 08/24/2021 3:15 PM EDT Radha Wild APRN IMMUNOLOGY ORDERABLES Fin al Result [facility] [address] [place] [address] * (ABNORMAL) COMPREHENSIVE METABOLIC PANEL (08/24/2021 3:15 PM EDT) Sodium 140 136 - 145 mmol/L 08/24/2021 8:29 PM EDT [facility] Potassium 4.0 3.5 - 5.0 mmol/L 08/24/2021 8:29 PM EDT [facility] Chloride 104 98 - 107 mmol/L 08/24/2021 8:29 PM EDT [facility] Total CO2 25 22 - 29 mmol/L 08/24/2021 8:29 PM EDT [facility] Anion Gap 11 7 - 16 mmol/L 08/24/2021 8:29 PM EDT [facility] Calcium 9.0 8.6 - 10.4 mg/dL 08/24/2021 8:29 PM EDT [facility] Glucose Lvl 106(H) 74 - 100 mg/dL 08/24/2021 8:29 PM EDT [facility] BUN 16 6 - 20 mg/dL 08/24/2021 8:29 PM EDT [facility] Creatinine 0.80 0.51 - 1.30 mg/dL 08/24/2021 8:29 PM EDT [facility] Albumin 4.3 3.5 - 5.2 gm/dL 08/24/2021 8:29 PM EDT [facility] Total Protein 6.8 6.4 - 8.3 gm/dL 08/24/2021 8:29 PM EDT [facility] Bili Total 0.5 0.1 - 1.3 mg/dL 08/24/2021 8:29 PM EDT [facility] ALT 17 <=41 U/L 08/24/2021 8:29 PM EDT [facility] AST 16 <=40 U/L 08/24/2021 8:29 PM EDT [facility] Alk Phos 59 36 - 123 U/L 08/24/2021 8:29 PM EDT [facility] eGFR (CKD-EPIcr 2020) 102 >=60 mL/min/1.7 3 m2 08/24/2021 8:29 PM EDT [facility] Comment:Estimated GFR was ca lculated using the CKD-EPIcr (2020) equation refit without race. The equation is recommended by the National Kidney Foundation - [place] [employer] of Nephrology Task Force. Blood VENOUS BLOOD / Unknown Venipuncture / Unknown 08/24/2021 3:15 PM EDT 08/24/2021 3:15 PM EDT us Radha Wild SERVICE CORRESPONDENT CHEMISTRY ORDERABLES Kim billings Result [facility] [address] [facility] , [address] [place] [id number] [facility] [address] [place], [place] [id number] * (ABNORMAL) CBC WITH DIFF (08/24/2021 3:15 PM EDT) WBC 6.1 3.7 - 10.3 x10(3)/mcL 08/24/2021 7:52 PM EDT [facility] RBC 3.84(L) 3.90 - 5.20 x10(6)/mcL 08/24/2021 7:52 PM EDT [facility] Hgb 12.0 11.2 - 15.7 g/dL 08/24/2021 7:52 PM EDT [facility] Hct 36.3 34.0 - 45.0 % 08/24/2021 7:52 PM EDT [facility] MCV 94.5 80.0 - 100.0 fL 08/24/2021 7:52 PM EDT [facility] MCH 31.3 26.0 - 34.0 pg 08/24/2021 7:52 PM EDT [facility] MCHC 33.1 30.7 - 35.5 g/dL 08/24/2021 7:52 PM EDT [facility] RDW 11.7 <=14.9 % 08/24/2021 7:52 PM EDT [facility] Platelet 190 155 - 369 x10(3)/mcL 08/24/2021 7:52 PM EDT [facility] MPV 11.6 8.8 - 12.5 fL 08/24/2021 7:52 PM EDT [facility] Neut Percent 73.9 % 08/24/2021 7:52 PM EDT [facility] Comment:Neutrophils equals s egs plus bands Imm Gran% 0.2 % 08/24/2021 7:52 PM EDT [facility] Comment:Automated count of m etamyelocytes, myelocytes and promyelocytes. Lymph Percent 17.2 % 08/24/2021 7:52 PM EDT [facility] Hooker Percent 8.0 % 08/24/2021 7:52 PM EDT [facility] Eos Percent 0.2 % 08/24/2021 7:52 PM EDT [facility] Baso Percent 0.5 % 08/24/2021 7:52 PM EDT [facility] Neut # 4.5 1.6 - 6.1 x10(3)/[facility] 08/24/2021 7:52 PM EDT [facility], [facility] Comment:Neutrophils equals s egs plus bands IMMGRAN# 0.0 0.0 - 0.1 x10(3)/[facility] 08/24/2021 7:52 PM EDT [facility], [facility] Comment:Automated count of m etamyelocytes, myelocytes and promyelocytes. An absolute IG <0.1 is reported as 0.0. Lymph # 1.1(L) 1.2 - 3.9 x10(3)/[facility] 08/24/2021 7:52 PM EDT [facility], [facility] Hooker # 0.5 0.3 - 0.9 x10(3)/[facility] 08/24/2021 7:52 PM EDT [facility], [facility] Eos# 0.0 0.0 - 0.5 x10(3)/[facility] 08/24/2021 7:[address] [facility], [facility] Baso # 0.0 0.0 - 0.1 x10(3)/[facility] 08/24/2021 7:[address] [facility] Blood VENOUS BLOOD / Unknown Venipuncture / Unknown 08/24/2021 3:15 PM EDT 08/24/2021 3:15 PM EDT us Radha Wild SERVICE CORRESPONDENT HEMATOLOGY ORDERABLES Fin al Result [facility], [facility] [address] [facility] , [address] [place] [id number] * T4, FREE (THYROXINE) (08/24/2021 3:15 PM EDT) [facility] Free T4 1.56 0.80 - 1.80 ng/dL 08/24/2021 8:[address] [facility], [facility] Blood VENOUS BLOOD / Unknown Venipuncture / Unknown 08/24/2021 3:15 PM EDT 08/24/2021 3:15 PM EDT Narrative [facility] - 08/24/2021 8:30 PM EDT Ingestion of cindi doses of biotin (>5 mg/day) taken within 8 hours of drawing blood sample can interfere with this immunoassay test. Radha Clarkex SERVICE CORRESPONDENT CHEMISTRY ORDERABLES Kim l Result Performing Organization Address [facility] de Phone Number [facility] [employer] , [place] [address] * THYROID STIMULATING HORMONE (08/24/2021 3:15 PM EDT) TSH 0.523 0.270 - 4.200 mcIU/mL 08/24/2021 8:29 PM EDT [facility] [employer] [facility] Blood VENOUS BLOOD / Unknown Venipuncture / Unknown 08/24/2021 3:15 PM EDT 08/24/2021 3:15 PM EDT Narrative [facility] [employer] [facility] - 08/24/2021 8:29 PM EDT Ingestion of cindi doses of biotin (>5 mg/day) taken within 8 hours of drawing blood sample can interfere with this immunoassay test. Radha Clarkex SERVICE CORRESPONDENT CHEMISTRY ORDERABLES Ikm l Result Performing Organization Address [facility] Phone Number [facility] [employer] , [place] [address] * POCT INFLUENZA A/B (08/24/2021 2:57 PM EDT) Influenza A Ag Negative [facility] Influenza B Ag Negative [facility] Lot Number [id number] [facility] Expiration Date [id number] [facility] Flu Blue Control Line (positive internal control) Yes [facility] Clear Background (negative internal control) Yes Yes/No SEP OFF[facility] 08/24/2021 2:57 PM EDT Radha Clarkex SERVICE CORRESPONDENT POINT OF CARE TEST ORDERA BLES Final Result Performing Organization Address [facility] Co de Phone Number SEP OFF[facility] * POCT PAM SARS ANTIGEN (08/24/2021 2:57 PM EDT) SARS Antigen Negative Negative [facility] Lot Number [id number] SEP OFFICE Expiration Date ,023 SEP OFFICE SeriAl # SEP OFFICE Control Line Yes YES/NO SEP OFFICE 08/24/2021 2:57 PM EDT Radha Wild SERVICE CORRESPONDENT POINT OF CARE TEST ORDERA BLES Final Result [facility] * POCT RAPID STREP A (08/24/2021 2:49 PM EDT) Strep A Ag None Detected None Detected Pos/Neg [facility]P [facility] Lot Number [id number] SEP OFFICE Expiration Date ,023 SEP OFFICE SeriAl # SEP OFFICE Control Line Yes YES/NO SEP OFFICE 08/24/2021 2:49 PM EDT Radha Wild APRN POINT OF CARE TEST ORDERA BLES Final Result Performing Organization Address City/[facility]/ZIP Co de Phone Number SEP OFFICE documented in this encounter Visit Diagnoses Diagnosis Cough- Primary Sore throat Acute pharyngitis Tick bite of abdomen, initial encounter Menstrual irregularity Irregular menstrual cycle documented in this encounter Care Teams Heavy Equipment Rental Associate Relationship Specialty Start Date End Date Nehemias Barron MD [address] [place] [address] PCP - General 12/01/10 Easton Thompson MD [address] [place] [address] [address] [place] [address] Physician Obstetrics & Gynecology 01/29/14 Radha Wild APRN [address] [place] [address] Nurse Practitioner 7/26/16 documented as of this encounter
--- OUTSIDE RECORDS SUMMARY | 2024-03-07 05:03 | XMS_ITS | Encounter Summary ---
Author Organization [facility] [place] [address] Care Team Providers Care Punch Press Operator Helper Name Role Phone Nehemias Barron MD Primary Care Provider [phone] Easton Thompson MD Unavailable [phone] Radha Wild CURTAIN STRETCHER ASSEMBLER Unavailable [phone] Encounter Details Date Type Department Care Team (Latest Contact Info) Description 10/11/2021 Travel Social History Tobacco Use Types Packs/Day [...] Assessment Author No 08/24/2021 2:30 PM EDT Nora FarfanaDENILSON * Does this person have serious difficulty [...] 08/24/2021 2:30 PM EDT Adolph Jacqueline DENILSON documented in this encounter Plan of [...] on filedocumented in this encounter Care Teams Punch Press Operator Helper Relationship Specialty Start Date End Date Nehemias Barron MD [address] [place] [address] PCP - General 12/01/10 Easton Thompson MD [address] [place] [address] [address] [place] [address] Physician Obstetrics & Gynecology 01/29/14 Radha Wild APRN [address] [place] [address] Nurse Practitioner 11/04/15 documented as of this encounter
--- OUTSIDE RECORDS SUMMARY | 2024-03-07 05:03 | XMS_ITS | Encounter Summary ---
Author Organization [facility] Address [address] [place] [address] Care Team Providers Care Fryer Operator Name Role Phone Nehemias Barron MD Primary Care Provider [phone] Easton Thompson MD Unavailable [phone] Radha Wild ASSEMBLER CRIMPER Unavailable [phone] Reason for Visit * Reason Comments Consult * Consultation (Routine) - Closed Specialty Diagnoses / Procedures Referred By Contjamal t Referred To Contact Diagnoses Pelvic varices Josh Stephens, [address] [place] [address] Phone: tel: fax: [facility] [place] [address] [place] [address] Phone: tel: fax: Referral ID Status Reason Start Date Expiration Date V isits Requested Visits Authorized [id number] Closed Other 10/25/2021 10/25/2022 1 1 Encounter Details Date Type Department Care Team (Late st Contact Info) Description 11/12/2021 3:30 PM EDT Office Visit [facility] [place] [address] [place] [address] Chris Louis MD [address] [place] [address] Pelvic pain (Primary Dx) Social History Tobacco Use Types [...] suspected to have Coronavirus/COVID-19? No / Unsure 11/12/2021 3:18 PM EDT documented as of this encounter Last Filed Vital Signs Vital Sign Reading Time Taken Comments Blood Pressure 107/71 11/12/2021 3:32 PM EDT Pulse 106 11/12/2021 3:32 PM EDT Temperature 36.8 ??C (98.2 ??F) 11/12/2021 3:32 PM ED T Respiratory Rate - - Oxygen Saturation - - Inhaled Oxygen Concentration - - Weight 54.4 kg (120 lb) 11/12/2021 3:32 PM EDT Height 165.1 cm (5' 5 ) 11/12/2021 3:32 PM EDT Body Mass Index 19.97 11/12/2021 3:32 PM EDT documented in this encounter Functional [...] documented in this encounter Progress Notes * Chris Louis MD - 11/12/2021 3:30 PM EDT 31-year-old female with chronic right lower quadrant sharp burning pain near McBurney's point that wraps around to the back. Pain is worse with standing, bending, lifting and better in or squatting position. Pain is worst at the end of the day and increases with her menstrual periods. She complains of inability to eat as that makes her pain worse and has lost 15 pounds. Pain is worst after intercourse but not during intercourse. She has seen multiple physicians without a diagnosis. CT wasdone in the emergency room recently revealing bilateral enlarged ovarian veins extending into pelvic varicosities left greater than right. Patient anxious and tearful about current situation.Has difficulty with employment and work given pain. Symptoms are progressive. There is no history of DVT, lower extremity varicose veins or vulvar veins. Patient is Ab3 with 1 dilatation and curettage for incomplete miscarriage. She has a history of cervical dysplasia, appendectomy at the age of 7, and hepatitis C which was treated. 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 There is a history of a negative colonoscopy and negative upper GI series. Family history: Endometriosis On physical examination patient appears to be in no acute distress but anxious. Vitals: Blood pressure 107/71. Pulse 106. Temperature 98.2. Neuro: Intact; Head and neck: Negative CARDIAC: Regular rate and rhythm Pulmonary: Clear lungs. ABDOMEN: Mild tenderness right lower quadrant with deep palpation. No rebound. No masses. Lower extremities: Normal. No varicosities. Imaging: Bilateral enlarged ovarian veins left greater than right extending into the pelvic varicosities. Ultrasound reveals small right ovarian cyst. This was performed 01/01/2021. Assessment: Chronic right pelvic pain. Symptoms not typical for pelvic congestion syndrome but there are overlapping symptoms including pelvic pain, back pain, pain after intercourse, and pain after prolonged standing and at the end of the day. Differential diagnosis would include adnexal ovarian pain or endometriosis. Adhesions from previous surgery unlikely but in the differential diagnosis. Patient is to have GI consultation. Question diagnostic laparoscopy? PLAN: Review after GI consultation. Consider MR venography with twist technique. Possible embolization of the ovarian vein bilaterally. Patient understands that this may not result in satisfactory symptom relief if her symptoms are not related pelvic congestion syndrome and that the anatomic findings discovered on CT are incidental. Question diagnostic laparoscopy? documented in this encounter Plan of Treatment Scheduled Referrals Name Type Priority Associated Diagnoses Orde r Schedule AMB REFERRAL TO VASC/INTERVENTIONAL RADIOLOGY Outpatient Referral Routine Pelvic varices Ordered: 10/25/2021 documented as of this encounter Goals Goal Patient Goal Type Associated Problems Recent Progress Patient-Stated? Author Maintain a healthy diet, exercise regularly and maintain an ideal body weight General No Shraddha Dolan LPN Stay Tobacco Free Lifestyle Shraddha Reyes LPN documented as of this encounter Visit Diagnoses Diagnosis Pelvic pain- Primary Unspecified symptom associated with female genital organs documented in this encounter Care Teams Fryer Operator Relationship Specialty Start Date End Date Nehemias Barron MD [address] [place] [address] PCP - General 12/01/10 Easton Thompson MD [address] [place] [address] [address] [place] [address] Physician Obstetrics & Gynecology 01/29/14 Radha Wild APRN [address] [place] [address] Nurse Practitioner 11/04/15 documented as of this encounter
--- OUTSIDE RECORDS SUMMARY | 2024-03-07 05:03 | XMS_ITS | Encounter Summary ---
Author Organization [place] [address] Care Team Providers Care Conservation Science Teacher Name Role Phone Nehemias Barron MD Primary Care Provider [phone] Easton Thompson MD Unavailable [phone] Radha Wild APRN Unavailable [phone] Reason for Referral * Consultation (Routine) - Closed Specialty Diagnoses / Procedures Referred By Eusbeia t Referred To Contact Diagnoses Pelvic varices Josh Stephens APRN [address] [place] [address] Phone: tel: fax: [facility] [address] [place] [address] Phone: tel: fax: Referral ID Status Reason Start Date Expiration Date V isits Requested Visits Authorized [id number] Closed Other 10/25/2021 10/25/2022 1 1 Question Answer Procedure Requested percutaneous-directed venous embolisation for pelvic varices. Primary Symptom/DX Abdominal pain. Pelvic varices seen on CT. Reason for Visit * Reason Comments Flank Pain Pt to ED with c/o ri ght flank pain. Pt states she was seen for same 2 weeks ago. Pt states the pain never got went away and is getting worse. Encounter Details Date Type Department Care Team (Late st Contact Info) Description 10/25/2021 1:36 PM EDT - 10/25/2021 4:21 PM EDT Emergency [facility] [address] [place] [address] [address] Raquel Covarrubias MD [address] [facility] [address] [place] [address] Pelvic varices (Primary Dx); Right sided abdominal pain Discharge Disposition: Home or Self Care Social [...] Sign Reading Time Taken Comments Blood Pressure 128/73 10/25/2021 3:50 PM EDT Pulse 87 10/25/2021 3:50 PM EDT Temperature 36.6 ??C (97.8 ??F) 10/25/2021 1:23 PM ED T Respiratory Rate 17 10/25/2021 3:50 PM EDT Oxygen Saturation 100% 10/25/2021 3:50 PM EDT Inhaled Oxygen Concentration - - Weight 54.4 kg (120 lb) 10/25/2021 1:23 PM EDT Height - - Body Mass Index 19.97 10/11/2021 1:04 PM [...] this encounter Discharge Instructions * Discharge Instructions* Josh Stephens APRN - 10/25/2021 4:13 PM EDT Discharge instructions Take all your medications as directed. Take Naproxen (with food to minimize stomach irritation) every 12 hours as needed for pain. Do not take naproxen with other NSAIDs such as ibuprofen and do not take if there is any possibility of . Follow up as instructed above in the follow-up section of your discharge paperwork. Follow-up with interventional radiology. Let them know a referral has been sent. Follow-up with primary care provider as well as GI as discussed above. Return to the Emergency Department for any new or worsening symptoms. documented in this encounter Medications at Time [...] to 30 days. 12 Tablet 10/11/2021 11/10/2021 naproxen (NAPROSYN) 500 mg Oral Tablet Take 1 Tablet by mouth 2 times daily as needed for Pain for up to 30 days. 30 Tablet 10/25/2021 11/24/2021 ondansetron (ZOFRAN-ODT) 4 mg Oral Tablet, Rapid Dissolve Take 1 Tablet by mouth every 6 hours as needed for Nausea for up to 30 days. 10 Tablet 10/25/2021 11/24/2021 documented as of this encounter Ordered Prescriptions Prescription Sig Dispense Quantity Refills Last Filled Start Date End Date ondansetron (ZOFRAN-ODT) 4 mg Oral Tablet, Rapid Dissolve Take 1 Tablet by mouth every 6 hours as needed for Nausea for up to 30 days. 10 Tablet 10/25/2021 11/24/2021 naproxen (NAPROSYN) 500 mg Oral Tablet Take 1 Tablet by mouth 2 times daily as needed for Pain for up to 30 days. 30 Tablet 10/25/2021 11/24/2021 documented in this encounter Discharge Disposition Disposition Code Departure Means Destination Comment s Home or Self Long Term documented in this encounter ED Notes * Josh Stephens APRN - 10/25/2021 1:20 PM EDT [facility] EM[facility]GENCY DEPART[facility] ENCOUNTER: 10/25/2021 Reason for Visit: Chief Complaint Patient presents with ??? Flank Pain Pt to ED with c/o right flank pain. Pt states she was seen for same 2 weeks ago. Pt states the painnever got went away and is getting worse. Attending physician Raquel Johnson MD Patient History HPI: Bonny Olivares is a 31 y.o. female with a history of hepatitis C, bronchitis, diet-controlled gestational diabetes, anemia during , history of IV drug use in remission, UTI and ovarian cysts who presents to the emergency department with complaint of ongoing and worsening right-sided abd ominal pain. Chart view was performed. Patient had unremarkable right upper quadrant ultrasound on 10/31/2020. Referred to GI for HIDA scan. HIDA scan ordered but not obtained per medical record. She apparently had a CT of the abdomen and pelvis sometime in 2020 which showed a 3.5 x 2.[address] from 10/31/2020 unremarkable per radiology interpretation. Pelvic ultrasound on 01/01/2021 showed small 2 cm ovarian cyst to the left ovary. Patient seen in the ED on 10/11/2021 with abdominal pain. Lab work obtained and significant for white blood cell count of 2.9 with a hemoglobin of 12.5. Urine analysis showed 4 red blood cells with +2 bacteria, 2 white blood cells, negative nitrites andnegative leukocytes. CMP unremarkable. Patient discharged with Ge and Autumn with instructions to follow-up with her GI doctor. Patient reports that she schedule appoint with her GI provider which is not till November 24. She states that she took ibuprofen prior to arrival without improvement in symptoms. Pain is constant but at times is more intense and sharp and stabbing. She is unable to identify any exacerbating relieving factors. She denies any increased urinary frequency or urgency or dysuria or hematuria. Reports that she sometimes will be constipated and sometimes have diarrhea but states this is been an ongoing issue for her and she denies any current abnormal bowel pattern. Denies melena or bright red blood per rectum. Denies any vaginal bleeding or discharge. Denies any concern for STD exposure. Denies nausea or vomiting. Denies fevers, cough, chest pain or shortness of breath. Denies rashes, sores or lesions. Patient reports that the pain is currently dull but at times is sharp. It ranges from moderate to severe intensity. Seems to radiate throughout the entirety of her right upper and right lower abdomen as well as right flank. Denies exacerbating or relieving factors. Reports no drug relapse of last 3 years. Past Medical History: Diagnosis Date ??? Anemia [...] to see patient in office before surgery Past Surgical History: Procedure Laterality Date ??? APPENDECTOMY age 7 ??? CERVIX BIOPSY 2010, 05/29/2013 ??? COLONOSCOPY N/A 11/19/2020 Colonoscopy ; Surgeon: Brett So MD; Location: [facility] ENDOSCOPY; Service: Endoscopy ??? DILATION AND CURETTAGE OF UTERUS N/A 02/20/2014 DILATION & CURETTAGE SUCTION EVACUATION FOR MISSCARRIAGE ; Surgeon: Kash Tabares MD; Location: ED MAIN OR; Service: Gynecology ??? LEEP N/A 06/27/2013 LOOP EXCISION PROCEDURE (LEEP); Surgeon: Sachin Castellanos MD; Location: [facility] MA[facility] OR; Service: Gynecology ??? SKIN CANCER EXCISION 06/2012 melanoma back ??? UPPER GASTROINTESTINAL ENDOSCOPY N/A 11/19/2020 Esophagogastroduodenoscopy ; Surgeon: Brett So MD; Location: [facility] END[facility]COPY; Service: Endoscopy Social History Tobacco Use ??? Smoking status: Current Every Day Smoker Packs/day: 1.00 Years: 8.00 Pack years: 8.00 Types: Cigarettes Start date: 04/11/2005 Last attempt to quit: 10/09/2015 Years since quittin.0 ??? Smokeless tobacco: Never Used Vaping Use ??? Vaping Use: Never used Substance Use Topics ??? Alcohol use: No ??? Drug use: Yes Types: Cocaine Comment: last used 02/2020 Family History Problem Relation Age of Onset ??? Colon Polyps Mother ??? Colon Polyps Father ??? Cancer Maternal Grandmother melanoma ??? Diverticulitis Maternal Grandmother ??? Diverticulitis Maternal Grandfather ??? Anesth Problems Neg Hx Previous Medications ALBUTEROL (PROVENTIL HFA;VENTOLIN HFA) 90 MCG/ACTUATION INHL HFA AEROSOL INHALER Inhale 2 Puffs into the lungs every 6 hours as needed for Wheezing. DICYCLOMINE (BENTYL) 20 MG ORAL TABLET Take 1 Tablet by mouth every 6 hours as needed for Other (abdominal cramping) for up to 30 days. LEVETIRACETAM (KEPPRA) 750 MG ORAL TABLET Take 2 Tabs by mouth 2 times daily. DELLA 0.25-35 MG-MCG ORAL TABLET Take 1 Tablet by mouth daily. SOFOSBUVIR-VELPATASVIR (EPCLUSA) 400-100 MG ORAL TABLET Take 1 Tablet by mouth daily. Allergies as of 10/25/2021 - Verified 10/25/2021 Allergen Reaction Noted ??? Latex Rash 03/21/2020 ??? Citalopram Hives 09/09/2015 ??? Effexor [venlafaxine] Nausea And Vomiting and Other (See Comments) 11/04/2015 ??? Sulfa (sulfonamide antibiotics) Swelling and Rash 06/27/2009 Patient's last menstrual period was 09/30/2021. Review of Systems ROS: Pertinent positives and negatives included above and below; all other systems reviewed and otherwise negative. Physical Exam Vitals: BP 128/73 Pulse 87 Temp 97.8 ??F (36.6 ??C) (Forehead) Resp 17 Wt 120 lb (54.4 kg) LMP 09/30/2021 SpO2 100% BMI 19.97 kg/m?? General: Patient appears well-developed and well-nourished. No acute distress. Non-toxic appearance. HEENT: Head normocephalic atraumatic. Neck: Supple. Trachea midline. Pulmonary: No respiratory distress. Equal rise and fall the chest wall. No accessory muscle use. Lungs are clear to auscultation bilaterally with good air movement. Cardiac: reg rate and regular rhythm. Abdomen: Abdomen is soft, non-distended and mild to moderate tenderness to the right upper quadrant, right periumbilical and right lower quadrant although negative McBurney's point tenderness negative Chow sign. Equivocal right-sided CVA tenderness. No left side abdominal tenderness. No suprapubic tenderness. Abdomen is non-peritoneal. No rebounding, guarding or organomegaly noted. Pelvic: Patient declined Musculoskeletal: Moving all extremities. Ambulates with a steady gait. Vascular: No cyanosis. Skin: Warm and dry. No unusual rashes, sores or lesions noted. Neuro: Alert and oriented time 4. Psych: Normal affect. Behavior appropriate. Diagnostic Studies Labs: Labs Reviewed URINALYSIS - Abnormal; Notable for the following components: Result Value UA Protein Trace (*) All other components within normal limits CBC WITH DIFF - Abnormal; Notable for the following components: WBC 3.5 (*) All other components within normal limits COMPREHENSIVE METABOLIC PANEL - Abnormal; Notable for the following components: Glucose Lvl 64 (*) All other components within normal limits HUMAN CHORIONIC GONADOTROPIN QUANTITATIVE - Normal Narrative: Ingestion of cindi doses of biotin (>5 mg/day) taken within 8 hours of drawing blood sample can interfere with this immunoassay test. Female (non-): 0-4.9 mIU/mL Female (postmenopausal): 0-8.1 mIU/mL Indeterminate values for (e.g., 5-25 mIU/mL) may be confirmed with a repeat test in 48-72hours. Values in should double every 2-3 days for the first six weeks. LIPASE LEVEL - Normal GLUCOSE METER POC Radiology: CT ABD PEL ED FAST W CONTRAST Final Result No acute abnormality. Bilateral pelvic varices. Consider nonemergent IR consult for further management. - Note: Radiology results need to be interpreted within a comprehensive clinical context. If you have questions about the radiology report, please contact the office of the ordering clinician. Emergency Department Procedures PROCEDURES: N/A ED COURSE AND MEDICAL DECISION MAKING CRITICAL CARE: Please see attending note for critical care time if applicable CONSULTATIONS: N/A Vital signs, medical history, social history, allergies and nursing notes reviewed. Medications sodium chloride 0.9% syringe 5-10 mL (has no administration in time range) sodium chloride 0.9% IV line flush 50 mL (has no administration in time range) morphine injection 8 mg (8 mg Intravenous Given 10/25/21 1409) sodium chloride 0.9% syringe (20 mL Intravenous Given 10/25/21 1507) iopamidoL (ISOVUE-370) 76 % injection (LOW) 100 mL (100 mL Intravenous Given 10/25/21 1506) droperidoL (INAPSINE) injection 1.25 mg (1.25 mg Intravenous Given 10/25/21 1549) diphenhydrAMINE (BENADRYL) injection 25 mg (25 mg Intravenous Given 10/25/21 1549) Vitals: Patient Vitals for the past 24 hrs: BP Temp Temp src Pulse Resp SpO2 Weight 10/25/21 1550 128/73 -- -- 87 17 100 % -- 10/25/21 1339 126/70 -- -- -- -- -- -- 10/25/21 1323 -- 97.8 ??F (36.6 ??C) Forehead 95 16 99 % 120 lb (54.4 kg) Patient seen during COVID 19 pandemic. They were given a surgical mask upon arrival. I was in current recommended PPE while evaluating the patient. Prior to entry into the room hands were washed, appropriate mask, eye shield applied. Upon leaving the patient's room PPE was appropriately and carefully removed and hands were again properly cleaned. Briefly this is a 31 y.o. female with a history of hepatitis C, bronchitis, diet-controlled gestational diabetes, anemia during , history of IV drug use in remission, UTI and ovarian cysts who presents to the emergency department with complaint of ongoing and worsening right-sided abdominal pain. On exam patient has moderate tenderness to the right upper quadrant, right lower quadrant aswell as right flank. No less abdominal tenderness. No current gynecologic complaints. This is patient's second visit this month for abdominal pain and further work-up was initiated. Discussed with patient risk versus benefit of a CT of the abdomen and pelvis and patient is amenable to CT imaging after risk versus benefits were discussed. Discussed pain medication options given history of narcoticaddiction. Patient amenable to one-time dose of IV narcotics during her initial work-up. Peripheral IV established. Patient ordered 8 mg of morphine IV for acute pain control. Labs: -Significant lab results include negative serum , urine analysis with trace protein but otherwise unremarkable. CBC shows a white blood cell count of 3.5 up from 2.9 on 10/11/2021. Lipase within normal notes. CMP shows a glucose of 64. Patient given p.o. [employer]. Imaging: -CT fast of abdomen and pelvis with IV contrast obtained which per the radiologist showed no acute abnormalities with bilateral pelvic varices with recommendation to consider nonemergent interventional radiology consultation for further management. Patient did develop an episode of nausea and vomiting after CAT scan and was given 1.25 mg of droperidol IV as well as 25 mg of Benadryl IV. On repeat assessment patient reports improvement in symptoms. She states that pain has resolved. She is no longer nauseous. Repeat fingerstick blood sugar now in the 80s. Discussed with patient CT findings. It is possible that pain is related to pelvic varices and pelvic congestion syndrome. Pelvicexam offered but patient declines. Low suspicion for ovarian torsion. Difficult to exclude pelvic infection at this time given the patient declines pelvic exam but my suspicion for PID at this time is relatively low. Patient has a low suspicion for STI. Based on history, serial abdominal exams, labwork and CT imaging at this time I have a low suspicion for cholecystitis, cholangitis, acute hepati tis, pancreatitis and appendicitis or diverticulitis. Additionally at this time I have a low suspicion for any urinary tract infection process including pyelonephritis. Low suspicion for nephrolithiasis. There are no signs of pulsatile mass and AAA is much lower on the differential. Mesenteric ischemia is also low on my differential. Patient has no evidence of obstruction and does tolerate oral intake. She states that her PCP does her gynecologic evaluations. I will provide a referral to interventional radiology with recommendations to call to schedule follow-up to discuss possible intervention to treat pelvic varices but also recommended close follow-up with PCP and also recommended patient continue plan follow-up with GI in July. Instructed on NSAIDs for pain control and given prescription for Zofran to take as needed for nausea or vomiting peer return precautions discussed and reviewed. The patient was given pertinent discharge instructions. They were also provided with followup instructions as well as return precautions. The patient/patient's responsible green party verbalized understanding and is in agreement with the plan. Clinical Impression: 1. Pelvic varices 2. Right sided abdominal pain Discharge instructions ??? Take all your medications as directed. ??? Take Naproxen (with food to minimize stomach irritation) every 12 hours as needed for pain. Do not take naproxen with other NSAIDs such as ibuprofen and do not take if there is any possibility ofpregnancy. ??? Follow up as instructed above in the follow-up section of your discharge paperwork. Follow-up with interventional radiology. Let them know a referral has been sent. Follow-up with primary care provider as well as GI as discussed above. ??? Return to the Emergency Department for any new or worsening symptoms. Discharge medications: New Prescriptions NAPROXEN (NAPROSYN) 500 MG ORAL TABLET Take 1 Tablet by mouth 2 times daily as needed for Pain for up to 30 days. ONDANSETRON (ZOFRAN-ODT) 4 MG ORAL TABLET, RAPID DISSOLVE Take 1 Tablet by mouth every 6 hours as needed for Nausea for up to 30 days. Condition at Discharge/Transfer from Department: Improved This chart was completed using voice recognition technology and may contain unintended errors Josh Stephens APRN 10/25/21 1615 Cosigned by Raquel Covarrubias MD at 10/26/2021 9:06 AM EDT Associated attestation - Raquel Covarrubias MD - 10/26/2021 9:06 AM EDT Patient evaluated primarily by [employer]. I was available for consultation in the ED. This chart was completed using voice recognition [...] Procedure Name Priority Date/Time Associated Diagnosis Comments GLUCOSE METER POC Routine 10/25/2021 3:[address] ABD PEL ED FAST W CONTRAST STAT 10/25/2021 3:08 PM EDT EXTRA DRISCOLL URINE CX STAT 10/25/2021 2 :05 PM EDT URINALYSIS STAT 10/25/2021 2:05 PM EDT CBC WITH DIFF STAT 10/25/2021 2:05 PM EDT HUMAN CHORIONIC GONADOTROPIN QUANTITATIVE STAT 10/25/2021 2:05 PM EDT LIPASE LEVEL STAT 10/25/2021 2:05 PM EDT COMPREHENSIVE METABOLIC PANEL STAT 10/25/2021 2:05 PM EDT SALINE LOCK IV STAT 10/25/2021 1:50 PM EDT documented in this encounter Results * GLUCOSE METER POC (10/25/2021 3:41 PM EDT) [facility] Glucose Meter POC 81 70 - 100 mg/dL 10/25/2021 3:42 PM EDT [facility] Sample Type Capillary 10/25/2021 3:42 PM EDT [facility] Patient Status Non-Critical Patient 10/25/2021 3:42 PM EDT [facility] Blood BLOOD SPECIMEN / Unknown 10/25/2021 3:41 PM EDT 10/25/2021 3:42 PM EDT us Raquel Covarrubias MD POINT OF CARE TEST ORDERABLE S Final Result [facility] [address] [id number] * CT ABD PEL ED FAST W CONTRAST (10/25/2021 3:08 PM EDT) Anatomical Region Laterality Modality Abdomen, Pelvis Computed Tomogra phy 10/25/2021 3:08 PM EDT Impressions 10/25/2021 3:29 PM EDT No acute abnormality. Bilateral pelvic varices. Consider nonemergent IR consult for further management. - Note: Radiology results need to be interpreted within a comprehensive clinical context. ??If you have questions about the radiology report, please contact the office of the ordering clinician. Narrative 10/25/2021 3:[address] ABDOMEN AND PELVIS WITH CONTRAST (FAST), 10/25/2021 3:08 PM CLINICAL HISTORY: ??-Right flank, right upper quadrant and right lower quadrant abdominal pain. COMPARISON: ??10/31/2020 PROCEDURE COMMENTS: ??Multi-detector CT scanning of the abdomen and pelvis with multiplanar reformatting per expedited protocol. ??Isovue 370 IV contrast given as recorded in EPIC. Dose 1 : CT DLP Total : 203 mGycm DLP Spiral Max : 203 mGycm Maximum CTDI Vol : 4.5 mGy SSDE : 6.66 mGy SSDE Diameter : 24.9 cm SSDE Source : [employer] FINDINGS: ?? LOWER THORAX: ??Lung bases unremarkable. ABDOMEN AND PELVIS: Liver, spleen, pancreas, and adrenal glands are unremarkable. Kidneys enhance and are nonhydronephrotic with a 9 mm right mid renal cyst. ??Unremarkable biliary system. No bowel obstruction or acute inflammatory process. No evidence of appendicitis. Bilateral pelvic varices with enlargement of the gonadal veins. This can cause pelvic congestion syndrome. Pelvic viscera unremarkable. No abnormal fluid or adenopathy. No acute osseous abnormality identified. Procedure Note Phoenix Chua MD - 10/25/2021 CT ABDOMEN AND PELVIS WITH CONTRAST (FAST), 10/25/2021 3:08 PM CLINICAL HISTORY: -Right flank, right upper quadrant and right lowerquadrant abdominal pain. COMPARISON: 10/31/2020 PROCEDURE COMMENTS: Multi-detector CT scanning of the abdomen and pelviswith multiplanar reformatting per expedited protocol. Isovue 370 IV contrastgiven as recorded in EPIC. Dose 1 : CT DLP Total : 203 mGycm DLP Spiral Max : 203 mGycm Maximum CTDI Vol : 4.5 mGy SSDE : 6.66 mGy SSDE Diameter : 24.9 cm SSDE Source : [employer] FINDINGS: LOWER THORAX: Lung bases unremarkable. ABDOMEN AND PELVIS: Liver, spleen, pancreas, and adrenal glands are unremarkable. Kidneys enhance and are nonhydronephrotic with a 9 mm rightmid renal cyst. Unremarkable biliary system. No bowel obstruction or acute inflammatory process. No evidence ofappendicitis. Bilateral pelvic varices with enlargement of the gonadal veins. This cancause pelvic congestion syndrome. Pelvic viscera unremarkable. No abnormal fluid or adenopathy. No acute osseous abnormality identified. IMPRESSION: No acute abnormality. Bilateral pelvic varices. Consider nonemergent IR consult for further management. - Note: Radiology results need to be interpreted within a comprehensiveclinical context. If you have questions about the radiology report, please contactthe office of the ordering clinician. us Josh Stephens APRN IMG CT ORDERABLES Final Res ult * (ABNORMAL) COMPREHENSIVE METABOLIC PANEL (10/25/2021 2:05 PM EDT) Sodium 139 136 - 145 mmol/L 10/25/2021 2:42 PM EDT [facility] Potassium 3.8 3.5 - 5.0 mmol/L 10/25/2021 2:42 PM [facility] Chloride 105 98 - 107 mmol/L 10/25/2021 2:42 PM [facility] Total CO2 23 22 - 29 mmol/L 10/25/2021 2:42 PM [facility] Anion Gap 11 7 - 16 mmol/L 10/25/2021 2:42 PM [facility] Calcium 10.0 8.6 - 10.4 mg/dL 10/25/2021 2:42 PM [facility] Glucose Lvl 64(L) 74 - 100 mg/dL 10/25/2021 2:42 PM [facility] BUN 10 6 - 20 mg/dL 10/25/2021 2:42 PM [facility] Creatinine 0.70 0.51 - 1.30 mg/dL 10/25/2021 2:42 PM [facility] Albumin 4.9 3.5 - 5.2 gm/dL 10/25/2021 2:42 PM [facility] Total Protein 7.2 6.4 - 8.3 gm/dL 10/25/2021 2:42 PM [facility] Bili Total 0.5 0.1 - 1.3 mg/dL 10/25/2021 2:42 PM EDT [facility] ALT 26 <=41 U/L 10/25/2021 2:42 PM EDT [facility] AST 20 <=40 U/L 10/25/2021 2:42 PM EDT [facility] Alk Phos 63 36 - 123 U/L 10/25/2021 2:42 PM EDT [facility] eGFR (CKD-EPIcr 2020) 119 >=60 mL/min/1.7 3 m2 10/25/2021 2:42 PM EDT [facility] Comment:Estimated GFR was ca lculated using the CKD-EPIcr (2020) equation refit without race. The equation is recommended by the National Kid[employer] - [place] [employer] Neph[employer] Task Force. Blood VENOUS BLOOD / Unknown Venipuncture / Unknown 10/25/2021 2:05 PM EDT 10/25/2021 2:23 PM EDT [employer] CHEMISTRY ORDERABLES Final Result Performing Organization Address City/[facility]/ZIP Co de Phone Number [facility] [address] [place] [address] * LIPASE LEVEL (10/25/2021 2:05 PM EDT) Lipase Lvl 32 13 - 60 U/L 10/25/2021 2:42 PM EDT [facility] Blood VENOUS BLOOD / Unknown Venipuncture / Unknown 10/25/2021 2:05 PM EDT 10/25/2021 2:23 PM EDT [employer] DRIVER CHEMISTRY ORDERABLES Final Result Performing Organization Address City/[facility] [[email or web address]] Co de Phone Number [facility] [address], [place] [id number] * (ABNORMAL) CBC WITH DIFF (10/25/2021 2:05 PM EDT) WBC 3.5(L) 3.7 - 10.3 x10(3)/mcL 10/25/2021 2:14 PM [facility] RBC 4.06 3.90 - 5.20 x10(6)/mcL 10/25/2021 2:14 PM [facility] Hgb 12.9 11.2 - 15.7 g/dL 10/25/2021 2:14 PM [facility] Hct 38.5 34.0 - 45.0 % 10/25/2021 2:14 PM [facility] MCV 94.8 80.0 - 100.0 fL 10/25/2021 2:14 PM [facility] MCH 31.8 26.0 - 34.0 pg 10/25/2021 2:14 PM [facility] MCHC 33.5 30.7 - 35.5 g/dL 10/25/2021 2:14 PM [facility] RDW 11.9 <=14.9 % 10/25/2021 2:14 PM [facility] Platelet 190 155 - 369 x10(3)/mcL 10/25/2021 2:14 PM [facility] MPV 10.2 8.8 - 12.5 fL 10/25/2021 2:14 PM [facility] Neut Percent 47.7 % 10/25/2021 2:14 PM [facility] Comment:Neutrophils equals s egs plus bands Imm Gran% 0.0 % 10/25/2021 2:14 PM [facility] Comment:Automated count of m etamyelocytes, myelocytes and promyelocytes. Lymph Percent 41.1 % 10/25/2021 2:[facility] [place] Percent 8.6 % 10/25/2021 2:[facility] Eos Percent 2.3 % 10/25/2021 2:14 PM [facility] Baso Percent 0.3 % 10/25/2021 2:14 PM [facility] Neut # 1.7 1.6 - 6.1 x10(3)/mcL 10/25/2021 2:14 PM [facility] Comment:Neutrophils equals s egs plus bands IMMGRAN# 0.0 0.0 - 0.1 x10(3)/[facility] 10/25/2021 2:14 PM EDT [facility] Comment:Automated count of m etamyelocytes, myelocytes and promyelocytes. An absolute IG <0.1 is reported as 0.0. Lymph # 1.4 1.2 - 3.9 x10(3)/[facility] 10/25/2021 2:14 PM EDT [facility] [place] # 0.3 0.3 - 0.9 x10(3)/[facility] 10/25/2021 2:14 PM EDT [facility] Eos# 0.1 0.0 - 0.5 x10(3)/[facility] 10/25/2021 2:14 PM EDT [facility] Baso # 0.0 0.0 - 0.1 x10(3)/[facility] 10/25/2021 2:14 PM EDT [facility] Blood VENOUS BLOOD / Unknown Venipuncture / Unknown 10/25/2021 2:05 PM EDT 10/25/2021 2:12 PM EDT Josh [facility] VAN DRIVER HEMATOLOGY ORDERABLES Final Result Performing Organization Address City/[facility]/ZIP Co de Phone Number [facility] [address] [place] [address] * EXTRA DRISCOLL URINE CX (10/25/2021 2:05 PM EDT) Urine URINE SPECIMEN COLLECTION, CLEAN CATCH / Unknown 10/25/2021 2:05 PM EDT 10/25/2021 2:13 PM EDT [facility] Maxpanda [employer] [facility] BUS VAN DRIVER MICROBIOLOGY - GENERAL ORDE RABLES Final Result Performing Organization Address [facility]/ZIP Co de Phone Number [facility] [address] [place] [address] * (ABNORMAL) URINALYSIS (10/25/2021 2:05 PM EDT) UA Color Yellow 10/25/2021 2:22 PM EDT [facility] UA Appear Clear Clear 10/25/2021 2:22 PM EDT [facility] UA Glucose Negative Negative mg/dL 10/25/2021 2:22 PM EDT [facility] UA Ketones Negative Negative mg/dL 10/25/2021 2:22 PM EDT [facility] UA Blood Negative Negative 10/25/2021 2:22 PM EDT [facility] UA pH 6.5 5.0 - 8.0 pH 10/25/2021 2:22 PM EDT [facility] UA Protein Trace(A) Negative mg/dL 10/25/2021 2:22 PM EDT [facility] UA Urobilinogen 1.0 <=1 mg/dL 2:22 PM EDT [facility] UA Bili Negative Negative 10/25/2021 2:22 PM EDT [facility] UA Nitrite Negative Negative 10/25/2021 2:22 PM EDT [facility] UA Leuk Est Negative Negative 10/25/2021 2:22 PM EDT [facility] UA Spec Grav 1.025 1.001 - 1.035 no units 10/25/2021 2:22 PM EDT [facility] Comment:Reference range kp d for random specimens only. UA WBC 1 0 - 4 /HPF 10/25/2021 2:22 PM EDT [facility] UA Squam Epi 1+ /LPF 10/25/2021 2:22 PM EDT [facility] Urine URINE SPECIMEN COLLECTION, CLEAN CATCH / Unknown 10/25/2021 2:05 PM EDT 10/25/2021 2:13 PM EDT Josh Stephens BUS VAN DRIVER URINE ORDERABLES Final Resu lt [facility] [address] [place] [address] * HUMAN CHORIONIC GONADOTROPIN QUANTITATIVE (10/25/2021 2:05 PM EDT) Hcg Quant <1 <5 mIU/mL 10/25/2021 2:32 PM EDT [facility] Blood VENOUS BLOOD / Unknown Venipuncture / Unknown 10/25/2021 2:05 PM EDT 10/25/2021 2:19 PM EDT Narrative [facility] - 10/25/2021 2:32 PM EDT Ingestion of cindi doses of biotin (>5 mg/day) taken within 8 hours of drawing blood sample can interfere with this immunoassay test. Female (non-): 0-4.9 mIU/mL Female (postmenopausal): 0-8.1 mIU/mL Indeterminate values for (e.g., 5-25 mIU/mL) may be confirmed with a repeat test in 48-72 hours. Values in should double every 2-3 days for the first six weeks. Josh Stephens APRN CHEMISTRY ORDERABLES Final Result [facility] [address] [place] [id number] documented in this encounter Visit Diagnoses Diagnosis Pelvic varices- Primary Right sided abdominal pain Abdominal pain, unspecified site documented in this encounter Administered Medications Inactive Administered Medications - up to 1 most recent administrations Medication Order MAR Action Action Date Dose Rate Site diphenhydrAMINE (BENADRYL) injection 25 mg 25 mg, Intravenous, ONCE, 1 dose, On 10/25/21 at 1530 Given 10/25/2021 3:49 PM EDT 25 mg droperidoL (INAPSINE) injection 1.25 mg 1.25 mg, Intravenous, ONCE, 1 dose, On 10/25/21 at 1530 Given 10/25/2021 3:49 PM EDT 1.25 mg iopamidoL (ISOVUE-370) 76 % injection (LOW) 100 mL 100 mL, Intravenous, ONCE PRN, 1 dose, Starting on 10/25/21 at 1450, Until 10/25/21 at 1506, Radiography/Imaging, Radiology Procedure, VESICANT , CT (Contrasts) Given 10/25/2021 3:06 PM EDT 100 mL Left Arm morphine injection 8 mg 8 mg, Intravenous, ONCE, 1 dose, On 10/25/21 at 1400 Given 10/25/2021 2:09 PM EDT 8 mg sodium chloride 0.9% IV line flush 50 mL 50 mL, Intravenous, at 999 mL/hr, PRN, Starting on 10/25/21 at 1349, Until 10/25/21 at 2036, Line Care, Flush with 50 mL after IVPB to insure complete administration of the dose. May use the saline infusion to back flush IVPB tubing as needed., Use this order to document priming and flushing IV line after medication administration. sodium chloride 0.9% syringe 5-10 mL 5-10 mL, Intravenous, PRN, Starting on 10/25/21 at 1349, Until Tue10/25/21 at 2036, Line Care, Flush with 5 mL saline pre/post IVP, and 5 mL prior to IVPB or blood product administration. Protocol for PERIPHERAL IV saline lock maintenance, flush with 3-5 mL saline syringe every 8 hours., Flush peripheral lines every 12 hours, central lines every 8 hours, and after IV medication sodium chloride 0.9% syringe Intravenous, ONCE PRN, 1 dose, Starting on Tue10/25/21 at 1450, Until Tue10/25/21 at 1507, Line Care, Flush peripheral lines every 12 hours, central lines every 8 hours, and after IV medication, CT (Contrasts) Given 10/25/2021 3:07 PM EDT 20 mL Left Arm documented in this encounter Discontinued Medications Medication Sig Discontinue Reason Start Date End Da te ibuprofen (ADVIL;MOTRIN) 200 mg Oral TabletIndications:pain Take 200 mg by mouth. Pt takes twice weekly Indications: pain Cancelled by Midlevel 10/25/2021 ondansetron (ZOFRAN-ODT) 4 mg Oral Tablet, Rapid Dissolve Take 1 Tablet by mouth every 6 hours as needed for Nausea for up to 30 days. Cancelled by Midlevel 10/11/2021 10/25/2021 documented as of this encounter Active and Recently Administered Medications Times are shown in EDT. Scheduled Medication Order 10/23/2021 10/24/2021 10/25/2021 diphenhydrAMINE (BENADRYL) injection 25 mg (COMPLETED) 25 mg, Intravenous, ONCE, 1 dose, On 10/25/21 at 1530 1549 (Given - Provid er: Kay Stanley RN) droperidoL (INAPSINE) injection 1.25 mg (COMPLETED) 1.25 mg, Intravenous, ONCE, 1 dose, On 10/25/21 at 1530 1549 (Given - Provid er: Kay Stanley RN) morphine injection 8 mg (COMPLETED) 8 mg, Intravenous, ONCE, 1 dose, On 10/25/21 at 1400 1409 (Given - Provid er: Kay Stanley RN) PRN Medication Order 10/23/2021 10/24/2021 10/25/2021 iopamidoL (ISOVUE-370) 76 % injection (LOW) 100 mL (COMPLETED) 100 mL, Intravenous, ONCE PRN, 1 dose, Starting on 10/25/21 at 1450, Until 10/25/21 at 1506, Radiography/Imaging, Radiology Procedure, VESICANT , CT (Contrasts) 1506 (Given - Provid er: Fadia Hernandez, RT) sodium chloride 0.9% IV line flush 50 mL 50 mL, Intravenous, at 999 mL/hr, PRN, Starting on 10/25/21 at 1349, Until 10/25/21 at 2037, Line Care, Flush with 50 mL after IVPB to insure complete administration of the dose. May use the saline infusion to back flush IVPB tubing as needed., Use this order to document priming and flushing IV line after medication administration. sodium chloride 0.9% syringe 5-10 mL 5-10 mL, Intravenous, PRN, Starting on 10/25/21 at 1349, Until 10/25/21 at 2037, Line Care, Flush with 5 mL saline pre/post IVP, and 5 mL prior to IVPB or blood product administration. Protocol for PERIPHERAL IV saline lock maintenance, flush with 3-5 mL saline syringe every 8 hours., Flush peripheral lines every 12 hours, central lines every 8 hours, and after IV medication sodium chloride 0.9% syringe (COMPLETED) Intravenous, ONCE PRN, 1 dose, Starting on 10/25/21 at 1450, Until 10/25/21 at 1507, Line Care, Flush peripheral lines every 12 hours, central lines every 8 hours, and after IV medication, CT (Contrasts) 1507 (Given - Provid er: Fadia Hernandez, RT) documented in this encounter Orders Medications Ordered That Horace ht Not Have Been Administered Count Last Ordered Date First Ordered Date sodium chloride 0.9% IV line flush 50 mL 1 10/25/2021 sodium chloride 0.9% syringe 5-10 mL 1 10/09 Nursing Count Last Ordered Date First Orde red Date BLOOD GLUCOSE 1 10/25/2021 IV Count Last Ordered Date First Orde red Date SALINE LOCK IV 1 10/25/2021 documented in this encounter Care Teams Conservation Science Teacher Relationship Specialty Start Date End Date Nehemias Barron MD [address] [place] [address] PCP - General 12/01/10 Easton Thompson MD [address] [place] [address] [address] [place] [address] Physician Obstetrics & Gynecology 01/29/14 Radha Wild APRN [address] [place] [address] Nurse Practitioner 11/04/15 documented as of this encounter
--- OUTSIDE RECORDS SUMMARY | 2024-03-07 05:03 | XMS_ITS | Encounter Summary ---
Author Organization [facility] [place] [address] Care Team Providers Care Core Composer Machine Tender Name Role Phone Nehemias Barron MD Primary Care Provider [phone] Easton Thompson MD Unavailable [phone] Radha Wild HOME SERVICE DEMONSTRATOR Unavailable [phone] Encounter Details Date Type Department Care Team (Latest Contact Info) Description 11/12/2021 Travel Social History Tobacco Use Types Packs/Day [...] on filedocumented in this encounter Care Teams Core Composer Machine Tender Relationship Specialty Start Date End Date Nehemias Barron MD [address] [place] [address] PCP - General 12/01/10 Easton Thompson MD [address] [place] [address] [address] [place] [address] Physician Obstetrics & Gynecology 01/29/14 Radha Wild APRN [address] [place] [address] Nurse Practitioner 11/04/15 documented as of this encounter
--- OUTSIDE RECORDS SUMMARY | 2024-03-07 05:03 | XMS_ITS | Encounter Summary ---
Author Organization [place] [address] Care Team Providers Care Brim Edge Trimmer Name Role Phone Nehemias Luevano MD Primary Care Provider Easton Thompson MD Unavailable [phone] Radha Wild BAFFLE MOUNTER Unavailable [phone] Reason for Visit * Reason Onset Date Comments Other 05/24/2022 Encounter Details Date Type Department Care Team (Late st Contact Info) Description 05/24/2022 Telephone [facility] [address] [facility] [place] [address] Nehemias Luevano MD [address] [place] [address] Other Social History Tobacco Use Types Packs/Day Years [...] Author No 08/24/2021 2:30 PM EDT Jacqueline Farfan, DENILSON * Is the person blind or does he/she have serious difficulty seeing even when wearing glasses? Answer Date of Assessment Author No 08/24/2021 2:30 PM EDT Jacqueline Farfan RMA * Does this person have serious difficulty walking or climbing stairs? Answer Date of Assessment Author No 08/24/2021 2:30 PM EDT Jacqueline Farfan DENILSON * Does this person have difficulty [...] Author No 08/24/2021 2:30 PM EDT Jacqueline Farfan, DENILSON documented in this encounter Miscellaneous Notes * Telephone Encounter - Allison Kaiser MA - 05/24/2022 10:42 AM EST No answer. Voicemail not set up. We will need to reschedule her appointment if she will be more than 15 minutes late. * Telephone Encounter - Arin Houtson - 05/24/2022 10:32 AM EST pt is calling in regards to appt today, she says that she is going to be more than 15 minutes late,I tried to reschedule, but she wanted to send a message back to let pcp be aware, and is wanting toknow if dr luevano will still see her please advise documented in this encounter Plan of Treatment [...] on filedocumented in this encounter Care Teams Brim Edge Trimmer Relationship Specialty Start Date End Date Nehemias Luevano MD [address] [place] [address] PCP - General 12/01/10 Easton Thompson MD [address] [place] [address] [address] [place] [address] Physician Obstetrics & Gynecology 01/29/14 Radha Wild APRN [address] [place] [address] Nurse Practitioner 11/04/15 documented as of this encounter
--- OUTSIDE RECORDS SUMMARY | 2024-03-07 05:03 | XMS_ITS | Encounter Summary ---
Author Organization [place] [address] Care Team Providers Care Steam Crane Operator Name Role Phone Nehemias Barron MD Primary Care Provider Easton Thompson MD Unavailable [phone] Radha Wild CHEMIST INSTRUMENTATION Unavailable [phone] Reason for Visit * Reason Comments Pharmacy Hep C Management Ep[facility] Encounter Details Date Type Department Care Team (Latest Contact Info) Description 03/25/2021 Specialty Pharmacy [facility] [address] [place] [address] Nick Cao CPhT Pharmacy Hep C Management (Epclusa) Social History Tobacco Use Types Packs/Day Years [...] Assessment Author No 10/27/2020 3:29 PM EDAnel Shipman, DENILSON * Is the person blind or [...] 3:29 PM EDT Anel Hope, RMA * Because of a physical, mental or emotional condition, does this person have difficulty doing errands alone such as visiting a doctor's office or shopping? Answer Date of Assessment Author No 10/27/2020 3:29 PM EDAnel Shipman RMRigo documented as of this encounter Mental Status * Because of a physical, mental or emotional condition, does this person have serious difficulty concentrating, remembering or making decisions? Answer Entry Date Author No 10/27/2020 3:29 PM Anel Dao, RMRigo documented in this encounter Progress Notes * Nick Cao CPhT - 03/25/2021 10:46 AM EST Specialty Pharmacy Refill Coordination Note Refill too soon until 03/26, please coordinate refill then * Li Golden CPhT - 03/25/2021 10:46 AM EST Specialty Pharmacy Refill Coordination Note Bonny Olivares is a 30 y.o. female contacted today regarding refills of her Epclusa. No answer, unable to leave voicemail. Mailbox not set up. * Alexis Johnson CPhT - 03/25/2021 10:46 AM EST Specialty Pharmacy Refill Coordination Note Bonny Olivares is a 30 y.o. female contacted today regarding refills of her Epclusa. Medication to be delivered in 2 days. Spoke with patient. * Minesh Lozoya [facility] - 03/25/2021 10:46 AM EST [facility] - Care Plan and Refill Review Refill questions and refill history verified. Last assessment 03/11/21. No reassessment needed at this time. Minesh Lozyoa [facility] Specialty Pharmacist Electronically signed by Minesh Lozoya [facility] at 03/30/2021 10:57 AM EST documented in this encounter Plan of Treatment [...] on filedocumented in this encounter Care Teams Steam Crane Operator Relationship Specialty Start Date End Date Nehemias Barron MD [address] [place] [address] PCP - General 12/01/10 Easton Thompson MD [address] [place] [address] [address] [place] [address] Physician Obstetrics & Gynecology 01/29/14 Radha Wild APRN [address] [place] [address] Nurse Practitioner 11/04/15 documented as of this encounter
--- OUTSIDE RECORDS SUMMARY | 2024-03-07 05:03 | XMS_ITS | Encounter Summary ---
Author Organization [place] [address] Care Team Providers Care Factory Focus Technician Name Role Phone Nehemias Barron MD Primary Care Provider [phone] Easton Thompson MD Unavailable [phone] Radha Wild APRN Unavailable [phone] Reason for Visit * Reason Comments Pharmacy Hep C Management Encounter Details Date Type Department Care Team (Latest Contact Info) Description 02/17/2021 Specialty Pharmacy [facility] [address] [place] [address] Nick Cao CPhT Pharmacy Hep C Management Social History Tobacco Use Types Packs/Day Years [...] Assessment Author No 10/27/2020 3:29 PM EDT Jayy Anel Campbell, RMA * Does this person have serious difficulty walking or climbing stairs? Answer Date of Assessment Author No 10/27/2020 3:29 PM EDT Jayy Anel Campbell, MALICKA * Does this person have difficulty dressing or bathing? Answer Date of Assessment Author No 10/27/2020 3:29 PM EDT Jayy Anel Campbell, RMA * Because of a physical, mental or emotional condition, does this person have difficulty doing errands alone such as visiting a doctor's office or shopping? Answer Date of Assessment Author No 10/27/2020 3:29 PM EDT Jayy Anel Campbell, RMRigo documented as of this encounter Mental Status * Because of a physical, mental or emotional condition, does this person have serious difficulty concentrating, remembering or making decisions? Answer Entry Date Author No 10/27/2020 3:29 PM EDT Jayy Anel Campbell, DENILSON documented in this encounter Progress Notes * Nick Cao CPhT - 02/17/2021 12:05 PM EST Specialty Pharmacy Refill Coordination Note Refill too soon until 02/28. will follow up then to coordinate refills. * Zaria Balrow CPhT - 02/17/2021 12:05 PM EST [facility] 02/27/2021 4:05 PM Patient will need 4 week follow up scheduled next month. Will have [facility] try to schedule as refill too soon until 02/28 Zaria Barlow CPhT * Michelle Kaur CPhT - 02/17/2021 12:05 PM EST Hepatitis C Medication Management Calling patient to follow up with patient on scheduling her four week follow up with [facility] and to initiate her next refill. No answer, unable to leave voicemail. * Li Golden CPhT - 02/17/2021 12:05 PM EST Specialty Pharmacy Refill Coordination Note Bonny Olivares is a 30 y.o. female contacted today regarding refills of her Epclusa. Medication to be delivered in 3 days. Spoke with patient. 4 week appointment also scheduled for 03/11 at 11am * Ritu Samaniego RPH - 02/17/2021 12:05 PM EST [facility] Ordered 4 week f/u labs. Thank you for allowing me to participate in the care of this patient. Ritu Samaniego, PharmD, BCACP documented in this encounter Miscellaneous Notes * Addendum Note - Ritu Samaniego RPH - 02/17/2021 12:05 PM ESTAddended by: RITU SAMANIEGO on: 03/04/2021 12:32 PM Modules accepted: Orders documented in this encounter Plan of Treatment Not on file documented as of this encounter Goals Goal Patient Goal Type Associated Problems Recent Progress Patient-Stated? Author Maintain a healthy diet, exercise regularly and maintain an ideal body weight General No Shraddha Dolan LPN Stay Tobacco Free Lifestyle No Shraddha Dolan LPN documented as of this encounter Results * HCV QUANT NAAT (03/11/2021 11:45 AM EST) HCV Qnt by NAAT (IU/mL) Not Detected IU/mL 03/14/2021 12:50 PM EST [facility] HCV Qnt by NAAT (log IU/mL) Not Detected log IU/mL 03/14/2021 12:50 PM EST [facility] HCV Qnt by NAAT Interp Not Detected Not Detected 03/14/2021 12:50 PM EST [facility] Comment: INTERPRETIVE INFORMATION: HCV [...] and Cellular Tissue-Based Products (HCT/P). Performed by [facility], [address] [place] [phone] [email or web address], Prabha Lovell MD, Lab. Director Blood VENOUS BLOOD / Unknown Venipuncture / Unknown 03/11/2021 11:45 AM EST 03/11/2021 11:45 AM EST us Brett So MD IMMUNOLOGY ORDERABLES Final Result [facility] [facility] [address] [place], [place] [phone] * COMPREHENSIVE METABOLIC PANEL (03/11/2021 11:45 AM [...] 03/11/2021 12:52 PM EST [facility] BUN 17 6 - 20 mg/dL 03/11/2021 12:52 PM EST [facility] Creatinine 0.78 0.51 - 1.30 mg/dL 03/11/2021 [...] 11 <=41 U/L 03/11/2021 12:52 PM EST [facility] AST 11 <=40 U/L 03/11/2021 12:52 PM EST [facility] Alk Phos 55 36 - 123 U/L 03/11/2021 12:52 PM EST [facility] eGFR (CKD-EPIcr 2020) 106 >=60 mL/min/1.7 3 m2 03/11/2021 12:52 PM EST [facility] Comment:Estimated GFR was ca lculated using the CKD-EPIcr (2020) equation refit without race. The equation is recommended by the National Kid[employer] - [place] [employer] Neph[employer] Task Force. Blood VENOUS BLOOD / Unknown Venipuncture / Unknown 03/11/2021 11:45 AM EST 03/11/2021 11:45 AM EST us Brett So MD CHEMISTRY ORDERABLES Final R esult [facility] [address] [facility], [place] [address] [facility] [address] [place] [address] documented in this encounter Visit Diagnoses Diagnosis Chronic hepatitis C without hepatic coma (HCC)- Primary documented in this encounter Care Teams Factory Focus Technician Relationship Specialty Start Date End Date Nehemias Barron MD [address] [place] [address] PCP - General 12/01/10 Easton Thompson MD [address] [place] [address] [address] [place] [address] Physician Obstetrics & Gynecology 01/29/14 Radha Wild APRN [address] [place] [address] Nurse Practitioner 11/04/15 documented as of this encounter
--- OUTSIDE RECORDS SUMMARY | 2024-03-07 05:03 | XMS_ITS | Encounter Summary ---
Author Organization [facility] Address [address] [place] [address] Care Team Providers Care Financial Agent Name Role Phone Nehemias Barron MD Primary Care Provider [phone] Easton Thompson MD Unavailable [phone] Radha Wild APRN Unavailable [phone] Reason for Visit * Reason Onset Date Comments Follow-up 12/24/2021 Encounter Details Date Type Department Care Team (Late st Contact Info) Description 12/24/2021 Telephone [facility] [place] [address] [place] [address] Mansi Whalen, OSCAR Follow-up Social History Tobacco Use Types Packs/Day [...] Telephone Encounter - Mansi Whalen RN - 12/24/2021 12:[address] Louis may proceed with MRI/twist technique if pt wishes. She is going to reschedule her GIappointment and then call me if she wishes to proceed. documented in this encounter Plan of Treatment [...] on filedocumented in this encounter Care Teams Financial Agent Relationship Specialty Start Date End Date Nehemias Barron MD [address] [place] [address] PCP - General 8/23/11 Easton Thompson MD [address] [place] [address] [address] [place] [address] Physician Obstetrics & Gynecology 01/29/14 Radha Wild APRN [address] [facility] [address] Nurse Practitioner 11/04/15 documented as of this encounter
--- OUTSIDE RECORDS SUMMARY | 2024-03-07 05:03 | XMS_ITS | Encounter Summary ---
Author Organization [facility] [place] [address] Care Team Providers Care Breakfast Supervisor Name Role Phone Nehemias Barron MD Primary Care Provider [phone] Easton Thompson MD Unavailable [phone] Radha Wild ENERGY ENGINEER Unavailable [phone] Encounter Details Date Type Department Care Team (Latest Contact Info) Description 10/25/2021 Travel Social History Tobacco Use Types Packs/Day [...] on filedocumented in this encounter Care Teams Breakfast Supervisor Relationship Specialty Start Date End Date Nehemias Barron MD [address] [place] [address] PCP - General 12/01/10 Easton Thompson MD [address] [place] [address] [address] [place] [address] Physician Obstetrics & Gynecology 01/29/14 Radha Wild APRN [address] [place] [address] Nurse Practitioner 11/04/15 documented as of this encounter
--- OUTSIDE RECORDS SUMMARY | 2024-03-07 05:04 | XMS_ITS | Encounter Summary ---
Author Organization [place] [address] Care Team Providers Care Inpatient Coder Name Role Phone Nehemias Barron MD Primary Care Provider [phone] Easton Thompson MD Unavailable [phone] Radha Wild APRN Unavailable [phone] Encounter Details Date Type Department Care Team (Latest Contact Info) Description 01/01/2021 3:20 PM EDT - 01/01/2021 11:59 PM EDT Hospital Encounter [facility] [address] [facility] [address] [place] [id number] Sabine Chan MD [address] [place] [id number] Discharge Disposition: Home or Self Care Social [...] have Coronavirus / COVID-19? No / Unsure 01/01/2021 3:14 PM EDT documented as of this encounter [...] Anel Hope RMA documented in this encounter Medications at [...] Once (Vaccine) for 1 dose. 1 mL 01/01/2021 3:42 PM EDT 12/05/2020 01/02/2021 pneumococcal vaccine (PNEUMOVAX 23) 25 mcg/0.5 mL Inj Syringe Inject 0.5 mL into the muscle once for 1 dose. 0.5 mL 01/01/2021 3:43 PM EDT 12/05/2020 01/02/2021 documented as of this encounter Discharge Disposition Disposition Code Departure Means Destination Home or Self Care documented in this encounter Progress Notes * Shirley Bhatt RPH - 01/01/2021 3:20 PM EDT Immunizations clinic-Hepatitis B Vaccine (Engerix-B) Are you sick or feverish today?no Have you ever had a serious reaction to Yeast?no Have you ever had a serious reaction after receiving a vaccination?no For women: Are you or could you become in the next month?no VIS provider to patient or patients guardian/legal rep?yes Benefits/Risks discussed with the patient or guardian/legal rep prior to administration?yes Patient advised to stay on campus for 15 minutes to monitor for adverse reactions. Immunization Clinic- Pneumovax Are you sick or feverish today? no VIS provider to the patient or the patients guardian/legal rep prior to administration? yes Benefits/Risks of the vaccine discussed with the patient or the patients guardian/legal rep.yes Have you ever had a serious reaction after receiving a vaccination? yes For women: Are you or could you become in the next month? no Patient remained on campus for 15 minutes after vaccine was administered and did not experience anyadverse reaction. documented in this encounter Plan of Treatment [...] on filedocumented in this encounter Care Teams Inpatient Coder Relationship Specialty Start Date End Date Nehemias Barron MD [address] [place] [address] PCP - General 12/01/10 Easton Thompson MD [address] [place] [address] [address] [place] [address] Physician Obstetrics & Gynecology 01/29/14 Radha Wild APRN [address] [facility] [id number] Nurse Practitioner 11/04/15 documented as of this encounter
--- OUTSIDE RECORDS SUMMARY | 2024-03-07 05:04 | XMS_ITS | Encounter Summary ---
Author Organization [facility] [place] [address] Care Team Providers Care Gas Attendant Name Role Phone Nehemias Barron MD Primary Care Provider [phone] Easton Thompson MD Unavailable [phone] Radha Wild APRN Unavailable [phone] Reason for Visit * Reason Onset Date Comments Prior Authorization 11/19/2020 Linda Encisom Encounter Details Date Type Department Care Team (Late st Contact Info) Description 11/19/2020 Telephone [facility] [address] [facility] [address] [place] [id number] Brett So MD [address] [place] [address] Prior Authorization (Linda 290mcg) Social History Tobacco Use Types Packs/Day Years [...] have Coronavirus / COVID-19? No / Unsure 11/19/2020 10:11 AM EDT documented as of this encounter Functional Status * Is the person deaf or does he/she have serious difficulty hearing? Answer Date of Assessment Author No 10/27/2020 3:29 PM EDT Anel Hope, RMA * Is the person blind or [...] No 10/27/2020 3:29 PM EDT Anel Hope RMRigo documented in this encounter Miscellaneous Notes * Telephone Encounter - Maine Villegas MA - 11/20/2020 11:29 AM EDT KELLI approved. Contacted pt via [employer]. * Telephone Encounter - Maine Villegas MA - 11/19/2020 3:22 PM EDT KELLI submitted for [employer] 290mcg through [facility]. Messer: [email or web address] documented in this encounter Plan of Treatment [...] on filedocumented in this encounter Care Teams Gas Attendant Relationship Specialty Start Date End Date Nehemias Barron MD [address] [place] [address] PCP - General 12/01/10 Easton Thompson MD [address] [place] [address] [address] [place] [address] Physician Obstetrics & Gynecology 01/29/14 Radha Wild APRN [address] [place] [address] Nurse Practitioner 11/04/15 documented as of this encounter
--- OUTSIDE RECORDS SUMMARY | 2024-03-07 05:04 | XMS_ITS | Encounter Summary ---
Author Organization [place] [address] Care Team Providers Care Sheet Metal Roofer Name Role Phone Nehemias Barron MD Primary Care Provider [phone] Easton Thompson MD Unavailable [phone] Radha Wild APRN Unavailable [phone] Reason for Referral * Ultrasound (Routine) - Closed Specialty Diagnoses / Procedures Referred By Contac t Referred To Contact Radiology Diagnoses Pelvic pain Procedures US PELVIS AND TRANSVAGIN[place] [address] [place] [address] Phone: tel: fax: Referral ID Status Reason Start Date Expiration Date Visits Re quested Visits Authorized [id number] Closed 12/25/2020 12/25/2021 1 1 Reason for Visit * Ultrasound (Routine) - Closed Specialty Diagnoses / Procedures Referred By Contac t Referred To Contact Radiology Diagnoses Pelvic pain Procedures US PELVIS AND TRANSVAGINAL NON OB COMPLETE Sabine Chan MD [address] [place] [address] Phone: tel: fax: Referral ID Status Reason Start Date Expiration Date Visits Re quested Visits Authorized [id number] Closed 12/25/2020 12/25/2021 1 1 Encounter Details Date Type Department Care Team (Latest Contact Info) Description 01/01/2021 3:14 PM EDT Hospital Encounter [facility] [address] [place], [place] [phone] Sabine Chan MD [address] [place] [address] Pelvic pain Discharge Disposition: Home or Self Care [...] this encounter Medications at Time of Discharge levETIRAcetam (KEPPRA) 750 mg Oral TabletIndications :Seizure [...] Procedure Name Priority Date/Time Associated Diagnosis Comments US PELVIS AND TRANSVAGINAL NON OB COMPLETE Routine 01/01/2021 4:49 PM EDT Pelvic pain documented in this encounter Results * US PELVIS AND TRANSVAGINAL NON OB COMPLETE (01/01/2021 4:49 PM EDT) Anatomical Region Laterality Modality Pelvis Ultrasound 01/01/2021 4:49 PM EDT Impressions 01/01/2021 6:50 PM EDT Unremarkable pelvic sonogram for age. - Note: Radiology results need to be interpreted within a comprehensive clinical context. ??If you have questions about the radiology report, please contact the office of the ordering clinician. Narrative 01/01/2021 6:50 PM EDT US PELVIS AND TRANSVAGINAL NON OB COMPLETE ??01/01/2021 4:49 PM ?? CLINICAL HISTORY: ??R10.2-Pelvic and perineal esis-KXD-34-CM. COMPARISON: ??CT abdomen 10/31/2020 PROCEDURE COMMENTS: Sonographic evaluation of the pelvis per ordered protocol with [employer] representative images and tech notes for sent for review. FINDINGS: ?? Uterus: ??7.6 x 5 x 3.7 cmcm. overall size. Endometrium: ??7 mm. thickness. RIGHT ovary: ??2.9 x 2.8 x 2.4 cm. Normal appearance for age. LEFT ovary: ??2.8 x 4.4 x 2.4 cm. 2.3 x 1.9 x 1.8 cm complex cyst likely a hemorrhagic cyst or a luteal cyst. Cul-de-sac: No abnormal fluid or mass. Doppler flow: Ovarian doppler not performed. Procedure Note Bryan Woo MD - 01/01/2021 US PELVIS AND TRANSVAGINAL NON OB COMPLETE 01/01/2021 4:49 PM CLINICAL HISTORY: R10.2-Pelvic and perineal pued-[id number]-CM. COMPARISON: CT abdomen 10/31/2020 PROCEDURE COMMENTS: Sonographic evaluation of the pelvis per orderedprotocol with [employer] representative images and tech notes for sent for review. FINDINGS: Uterus: 7.6 x 5 x 3.7 cmcm. overall size. Endometrium: 7 mm. thickness. RIGHT ovary: 2.9 x 2.8 x 2.4 cm. Normal appearance for age. LEFT ovary: 2.8 x 4.4 x 2.4 cm. 2.3 x 1.9 x 1.8 cm complex cyst likelya hemorrhagic cyst or a luteal cyst. Cul-de-sac: No abnormal fluid or mass. Doppler flow: Ovarian doppler not performed. IMPRESSION: Unremarkable pelvic sonogram for age. - Note: Radiology results need to be interpreted within a comprehensiveclinical context. If you have questions about the radiology report, please contactthe office of the ordering clinician. us Sabine Chan MD [facility] [place] US ORDERABLES Final Result documented in this encounter Visit Diagnoses Diagnosis Pelvic pain Unspecified symptom associated with female genital organs documented in this encounter Care Teams Sheet Metal Roofer Relationship Specialty Start Date End Date Nehemias Barron MD [address] [place] [address] PCP - General 12/01/10 Easton Thompson MD [address] [place] [address] [address] [place] [address] Physician Obstetrics & Gynecology 01/29/14 Radha Wild APRN [address] [place] [address] Nurse Practitioner 11/04/15 documented as of this encounter
--- OUTSIDE RECORDS SUMMARY | 2024-03-07 05:04 | XMS_ITS | Encounter Summary ---
Author Organization [place] [address] Care Team Providers Care Disk And Tape Machine Tender Name Role Phone Nehemias Barron MD Primary Care Provider [phone] Easton Thompson MD Unavailable [phone] Radha Wild ODD PIECE CHECKER Unavailable [phone] Reason for Referral * Consultation (Routine) - Closed Specialty Diagnoses / Procedures Referred By Contact Referred To Contact Pharmacist - Pharmacotherapy / Med Mgmt Diagnoses Chronic hepatitis C without hepatic coma (HCC) Brett So MD Phone: tel: fax: [facility] [address] [facility] [address] [place] [address] Phone: tel: fax: Referral ID Status Reason Start Date Expiration Date Visits Re quested Visits Authorized [id number] Closed 11/11/2020 11/11/2021 99 99 Question Answer Services Collaborative Care Management Disease Protocol Managment Reason Hep C Level of Medication Management All Levels * Surgical (Routine) - Closed Specialty Diagnoses / Procedures Referred By Contjamal t Referred To Contact Diagnoses Rectal bleeding Abdominal pain, RLQ (right lower quadrant) Procedures AMB COLON/EGD W ANESTH COMM ORDER GA COLONOSCOPY FLX DX W/COLLJ SPEC WHEN PFRMD GA EGD TRANSORAL BIOPSY SINGLE/MULTIPLE GA COLONOSCOPY W/BIOPSY SINGLE/MULTIPLE GA COLSC FLX W/RMVL OF TUMOR POLYP LESION SNARE TQ GA COLONOSCOPY FLX W/ENDOSCOPIC MUCOSAL RESECTION GA COLORECTAL SCRN; HI RISK IND GA COLON CA SCRN NOT HI RSK IND GA MOD SEDAT ENDO SERVICE >5YRS GA ESOPHAGOGASTRODUODENOSCOPY TRANSORAL DIAGNOSTIC GA EGD INSERT GUIDE WIRE DILATOR PASSAGE ESOPHAGUS GA EGD BALLOON DILATION ESOPHAGUS <30 MM DIAM GA EGD FLEX REMOVAL LESION(S) BY HOT BIOPSY FORCEPS GA DILATE ESOPHAGUS Brett So MD Phone: tel: fax: Brett So MD Phone: tel: fax: Referral ID Status Reason Start Date Expiration Date Visits Re quested Visits Authorized [id number] Closed 11/11/2020 11/11/2021 1 1 Reason for Visit * Reason Comments Hepatitis C Abdominal Pain lower right side Rectal Bleeding * Consultation (Routine) - Closed Specialty Diagnoses / Procedures Referred By Contjamal t Referred To Contact Gastroenterology Diagnoses Chronic hepatitis C without hepatic coma (HCC) Nehemias Barron MD [address] [place] [address] Phone: tel: fax: Brett So MD Phone: tel: fax: Referral ID Status Reason Start Date Expiration Date Visits Re quested Visits Authorized [id number] Closed 10/27/2020 10/27/2021 99 99 Encounter Details Date Type Department Care Team (Late st Contact Info) Description 11/11/2020 12:20 PM EDT Office Visit [facility] [address] [address] Brett So MD [address] [place] [address] Rectal bleeding (Primary Dx); Abdominal pain, RLQ (right lower quadrant); Chronic hepatitis C without hepatic coma (HCC) Social History Tobacco Use Types Packs/Day Years [...] have Coronavirus / COVID-19? No / Unsure 11/11/2020 12:13 PM EDT documented as of this encounter Last Filed Vital Signs Vital Sign Reading Time Taken Comments Blood Pressure 128/82 11/11/2020 12:22 PM EDT Pulse - - Temperature - - Respiratory Rate - - Oxygen Saturation - - Inhaled Oxygen Concentration - - Weight 60.8 kg (134 lb) 11/11/2020 12:22 PM EDT Height 165.1 cm (5' 5 ) 11/11/2020 12:22 PM EDT Body Mass Index 22.3 11/11/2020 12:22 PM EDT documented in this encounter Functional [...] Anel Dao RMA documented in this encounter Ordered Prescriptions Prescription Sig Dispense Quantity Refills Last Filled Start Date End Date polyethylene glycol (MIRALAX) 17 gram Oral Powder in Packet Take 17 g by mouth 2 times daily. 100 Packet 1 11/11/2020 03/11/2021 documented in this encounter Progress Notes * Brett So MD - 11/11/2020 12:20 PM EDT [facility] Gastroenterology Consult Note Primary Care Physician: Nehemias Barron MD Reason for referral: Hepatitis C, Abdominal Pain (lower right side), and Rectal Bleeding History of Presenting Illness Bonny Olivares is a(n) 30 y.o. female asked to see us in consultation by Nehemias Barron MD for evaluation of abdominal pain and rectal bleeding. 30-year-old female with a medical history significant for intravenous drug use in remission, depression, history of cervical dysplasia, nicotine dependence and seizure disorder who presents to us forfurther evaluation of abdominal pain for the last 6 months. Patient states that she has right lowerback pain radiating to her right lower quadrant of the abdomen. The pain initially was intermittentand mostly with eating but now the pain is essentially persistent and there 24/. The pain still worsens with any p.o. intake and then returns to a baseline. Work-up thus far has included a CT scan of the abdomen without contrast, right upper quadrant ultrasound and blood work which has been all unremarkable. She reports a 10 pound weight loss over the last few weeks and poor p.o. intake due to pain. She also reports being constipated and having bowel movements once every couple of days with significant amount of straining. She also reports blood in her stools which is bright red in color. She does have mild improvement in abdominal pain for an hour or 2 after a bowel movement. She has never had an upper endoscopy or colonoscopy before. Denies any family history of colon cancer. She was placed on pantoprazole for possible peptic ulcer disease but this has not helped her symptoms. She has also been taking sucralfate without any symptom relief. She was recently incarcerated and released a month or so ago. She reports damien hepatitis C afew years ago when she was using IV drugs. She reports that she has been in remission from drug usefor the last 3 years. She is treatment na??ve. Review of Systems: All review of systems were reviewed and negative except for those mentioned above in the HPI. PMSH: Past Medical History: Diagnosis Date ??? Anemia [...] has found out cause ??? Headache(784.0) ??? 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 Knee injury chip in left knee but has problems with both knee's ??? Melanoma in situ of back (HCC) 06/2012 ??? Motion sickness ??? 06/2011 ??? Psoriasis ??? Psoriasis ??? RA (rheumatoid arthritis) (HCC) ??? UTI (urinary tract infection) had [...] 5 ??? CERVIX BIOPSY 2010, 05/29/2013 ??? DILATION AND CURETTAGE OF UTERUS N/A 02/20/2014 DILATION & CURETTAGE SUCTION EVACUATION FOR MISSCARRIAGE ; Surgeon: Kash Tabares MD; Location: [facility] MAIN OR; Service: Gynecology ??? LEEP N/A 06/27/2013 LOOP EXCISION PROCEDURE (LEEP); Surgeon: Sachin Castellanos MD; Location: [facility] MAIN OR; Service: Gynecology ??? SKIN CANCER EXCISION 06/2012 melanoma back Medications Current Outpatient Medications Medication Sig Dispense Refill ??? levETIRAcetam (KEPPRA) 750 mg Oral Tablet Take 2 Tabs by mouth 2 times daily. 120 Tab 12 ??? pantoprazole (PROTONIX) 40 mg Oral Tablet, Delayed Release (E.C.) Take 1 Tab by mouth daily. 30Tab 2 ??? sucralfate (CARAFATE) 1 gram Oral Tablet Take 1 Tab by mouth 4 times daily. 120 Tab 0 ??? polyethylene glycol (MIRALAX) 17 gram Oral Powder in Packet Take 17 g by mouth 2 times daily. 100 Packet 1 No current facility-administered medications for this visit. Allergy: Allergies Allergen Reactions ??? Latex Rash ??? Citalopram Hives ??? Effexor [Venlafaxine] Nausea And Vomiting and Other (See Comments) Shaky, lightheaded ??? Sulfa (Sulfonamide Antibiotics) Swelling and Rash throat closes up, rash, and red everywhere FMH: Family History Problem Relation Age of Onset ??? Colon Polyps Mother ??? Colon Polyps Father ??? Cancer Maternal Grandmother melanoma ??? Diverticulitis Maternal Grandmother ??? Diverticulitis Maternal Grandfather ??? Anesth Problems Neg Hx Social History: Social History Socioeconomic History ??? Marital status: Single Spouse name: Not on file ??? Number of children: Not on file ??? Years of education: Not on file ??? Highest education level: Not on file Occupational History ??? Not on file Social Needs ??? Financial resource strain: Not on file ??? Food insecurity Worry: Not on file Inability: Not on file ??? Transportation needs Medical: Not on file Non-medical: Not on file Tobacco Use ??? Smoking status: Current Every Day Smoker Packs/day: 1.00 Years: 8.00 Pack years: 8.00 Types: Cigarettes Start date: 04/11/2005 Last attempt to quit: 10/09/2015 Years since quittin.0 ??? Smokeless tobacco: Never Used Substance and Sexual Activity ??? Alcohol use: No ??? Drug use: Yes Types: Cocaine Comment: last used 02/2020 ??? Sexual activity: Yes Partners: Male Lifestyle ??? Physical activity Days per week: Not on file Minutes per session: Not on file ??? Stress: Not on file Relationships ??? Social connections Talks on phone: Not on file Gets together: Not on file Attends mormon service: Not on file Active member of club or organization: Not on file Attends meetings of clubs or organizations: Not on file Relationship status: Not on file ??? Intimate partner violence Fear of current or ex partner: Not on file Emotionally abused: Not on file Physically abused: Not on file Forced sexual activity: Not on file Other Topics Concern ??? Not on file Social History Narrative ??? Not on file BP 128/82 (BP Location: Left arm, Patient Position: Sitting) Ht 5' 5 (1.651 m) Wt 134 lb (60.8kg) LMP 10/14/2020 (Approximate) BMI 22.30 kg/m?? Physical Exam Vitals signs and nursing note reviewed. Constitutional: General: She is not in acute distress. Appearance: Normal appearance. She is not ill-appearing. HENT: Head: Normocephalic and atraumatic. Eyes: Extraocular Movements: Extraocular movements intact. Neck: Musculoskeletal: Normal range of motion. Cardiovascular: Rate and Rhythm: Normal rate. Pulmonary: Effort: No respiratory distress. Abdominal: Comments: RLQ and Right flank pain Musculoskeletal: Normal range of motion. Skin: Coloration: Skin is not jaundiced. Neurological: General: No focal deficit present. Mental Status: She is alert and oriented to person, place, and time. Mental status is at baseline. Psychiatric: Mood and Affect: Mood normal. Behavior: Behavior normal. Thought Content: Thought content normal. Judgment: Judgment normal. Laboratory: Lab Results Component Value Date WBC 4.5 03/30/2020 HGB 11.8 03/30/2020 HCT 35.0 03/30/2020 MCV 93.1 03/30/2020 PLT 187 03/30/2020 Lab Results Component Value Date ALT 20 11/07/2020 AST 19 11/07/2020 ALKPHOS 65 11/07/2020 BILIDIR <0.2 11/07/2020 PROT 7.3 11/07/2020 INR 1.16 (H) 01/22/2014 Lab Results Component Value Date CREATININE 0.74 10/30/2015 BUN 12 10/30/2015 NA 138 10/30/2015 K 4.4 10/30/2015 CL 100 10/30/2015 CO2 24 10/30/2015 Lab Results Component Value Date INR 1.16 (H) 01/22/2014 Imaging: No results found for this or any previous visit. No results found for this or any previous visit. Results for orders placed during the hospital encounter of 10/31/20 CT ABDOMEN PELVIS WO ORAL OR IV CONTRAST Narrative CT ABDOMEN AND PELVIS WITHOUT IV OR ORAL CONTRAST, 10/31/2020 2:52 PM CLINICAL HISTORY: R10.31-Right lower quadrant [id number] R10.9-Unspecified abdominal [id number]. COMPARISON: None. PROCEDURE COMMENTS: Multidetector CT examination of the abdomen and pelvis without IV or oral contrast per protocol. Multiplanar reconstructions. Dose 1 : CT DLP Total : 199 mGycm DLP Spiral Max : 199 mGycm Maximum CTDI Vol : 4.74 mGy SSDE : 7.6788 mGy SSDE Diameter : 22.5 cm SSDE Source : AP+Lat FINDINGS: LOWER THORAX: Lung bases unremarkable. ABDOMEN AND PELVIS: Unenhanced liver, spleen, pancreas, adrenal glands unremarkable. Gallbladder is unremarkable. On stomach There is no hydronephrosis. There is no radiodense urolithiasis identified. Urinary bladder is unremarkable. No bowel obstruction or acute inflammatory process. No evidence of appendicitis. Pelvic viscera unremarkable. No free fluid or adenopathy. No acute osseous lesion identified. Impression No acute abnormality of the unenhanced abdomen or pelvis. No hydronephrosis. No evidence of appendicitis. - Note: Radiology results need to be interpreted within a comprehensive clinical context. If you have questions about the radiology report, please contact the office of the ordering clinician. Previous imaging and any available records were [facility] and summarized in the HPI. Assessment/Plan 1. Rectal bleeding - AMB COLON/EGD W ANESTH COMM ORDER - HIV AG/AB; Future - MISCELLANEOUS LAB; Future 2. Abdominal pain, RLQ (right lower quadrant) - AMB COLON/EGD W ANESTH COMM ORDER - HIV AG/AB; Future - MISCELLANEOUS LAB; Future 3. Chronic hepatitis C without hepatic coma (HCC) - AMB REFERRAL TO PHARMACY/MEDICATION MANAGEMENT 30-year-old female with multiple medical comorbidities who presents to the clinic to establish carein regards to her abdominal pain and hepatitis C and rectal bleeding. Her abdominal pain is very atypical for peptic ulcer disease or biliary colic however her pain is worsened by p.o. intake suggestive of possible gallbladder etiology. Pain however is predominantly inthe right lower quadrant radiating to the lower back. Work-up thus far has been essentially unremarkable. She has a HIDA scan pending as ordered by the PCP. I have asked her to stop the PPIs if this has not been helping her. Patient also reports significant constipation and this may be contributingto her symptoms. I have asked her to start taking MiraLAX 17 g twice daily. We will set her up for an upper endoscopy and a colonoscopy given her associated symptoms of rectal bleeding. Regards to her hepatitis C, she does not have any stigmata of chronic liver disease. We will refer her to specialty pharmacy to begin treatment for this. If endoscopy is unremarkable and patient continues to have abdominal pain, may need a referral to ageneral surgeon for possible cholecystectomy and/or a pelvic ultrasound to better evaluate the pelvic viscera. RTC 2 weeks Thank you Nehemias Barron MD for asking me to see Bonny Olivares in consultation This note was generated by [employer] Voice Recognition technology. It has been reviewed by the undersigned, however, may still contain unintended errors. Brett So MD [facility] [phone] documented in this encounter Miscellaneous Notes * Patient Instructions - Ritu Sena LPN - 11/11/2020 12:20 PM EDT You may be contacted by mail or e-mail to participate in a patient satisfaction survey regarding your office visit today. We value your opinion and depend on your feedback to make improvements and provide you with the best possible experience while receiving high quality medical treatment. Your time in completing this survey is greatly appreciated. documented in this encounter Plan of Treatment Scheduled Referrals Name Type Priority Associated Diagnoses Order Schedule AMB REFERRAL TO PHARMACY/MEDICATION MANAGEMENT Outpatient Referral Routine Chronic hepatitis C without hepatic coma (HCC) Ordered: 11/11/2020 documented as of this encounter Goals Goal Patient Goal Type Associated Problems Recent Progress Patient-Stated? Author Maintain a healthy diet, exercise regularly and maintain an ideal body weight General No Shraddha Dolan LPN Stay Tobacco Free Lifestyle No Shraddha Dolan LPN documented as of this encounter Results * HIV AG/AB (11/11/2020 1:16 PM EDT) HIV Ag/AB Non-Reactiv e Non-Reacti ve 11/11/2020 9:29 PM EDT PREFERRED [facility] VENOUS BLOOD / Unknown Venipuncture / Unknown 11/11/2020 1:16 PM EDT 11/11/2020 1:16 PM EDT us Brett So MD IMMUNOLOGY ORDERABLES Final Result [employer] [address] [place] [address], [place] [address] documented in this encounter Visit Diagnoses Diagnosis Rectal bleeding- Primary Hemorrhage of rectum and anus Abdominal pain, RLQ (right lower quadrant) Abdominal pain, right lower quadrant Chronic hepatitis C without hepatic coma (HCC) documented in this encounter Orders Lab Orders Without Results Count Last Ordered D ate First Ordered Date MISCELLANEOUS LAB 1 11/11/2020 Nursing Count Last Ordered Date First Orde red Date AMB COLON/EGD W ANESTH COMM ORDER 1 021 documented in this encounter Care Teams Disk And Tape Machine Tender Relationship Specialty Start Date End Date Nehemias Barron MD [address] [place] [address] PCP - General 12/01/10 Easton Thompson MD [facility] [address] [place] [address] Physician Obstetrics & Gynecology 01/29/14 Radha Wild APRN [address] [place] [address] Nurse Practitioner 11/04/15 documented as of this encounter
--- OUTSIDE RECORDS SUMMARY | 2024-03-07 05:04 | XMS_ITS | Encounter Summary ---
Author Organization [facility] [place] [address] Care Team Providers Care Narrow Gauge Brakeman Name Role Phone Nehemias Barron MD Primary Care Provider [phone] Easton Thompson MD Unavailable [phone] Radha Wild PICKLER HELPER Unavailable [phone] Encounter Details Date Type Department Care Team (Latest Contact Info) Description 11/07/2020 Travel Social History Tobacco Use Types Packs/Day [...] have Coronavirus / COVID-19? No / Unsure 11/07/2020 10:41 AM EDT documented as of this encounter [...] EDAnel Shipman RMA documented in this encounter Plan of [...] on filedocumented in this encounter Care Teams Narrow Gauge Brakeman Relationship Specialty Start Date End Date Nehemias Barron MD [address] [place] [address] PCP - General 12/01/10 Easton Thompson MD [address] [place] [address] [address] [place] [address] Physician Obstetrics & Gynecology 01/29/14 Radha Wild APRN [address] [place] [address] Nurse Practitioner 11/04/15 documented as of this encounter
--- OUTSIDE RECORDS SUMMARY | 2024-03-07 05:04 | XMS_ITS | Encounter Summary ---
Author Organization [place] [address] Care Team Providers Care Audiology Director Name Role Phone Nehemias Barron MD Primary Care Provider [phone] Easton Thompson MD Unavailable [phone] Radha Wild APRN Unavailable [phone] Encounter Details Date Type Department Care Team (Late st Contact Info) Description 11/15/2020 10:02 AM EDT - 11/15/2020 11:59 PM EDT Hospital Encounter [facility] [address] [place] [address] Covid19, [facility] Pre-op testing; Encounter for laboratory testing for COVID-19 virus Discharge Disposition: Home or Self Care Social [...] have Coronavirus / COVID-19? No / Unsure 11/15/2020 9:59 AM EDT documented as of this encounter [...] of Discharge levETIRAcetam (KEPPRA) 750 mg Oral TabletIndications: Seizure disorder (HCC) Take 2 Tabs by mouth 2 times daily. 120 Tab 12 10/15/2020 documented as of this encounter Discharge Disposition [...] Procedure Name Priority Date/Time Associated Diagnosis Comments CORONAVIRUS 2019 Routine 11/15/2020 9:37 AM EDT Pre-op testing Encounter for laboratory testing for COVID-19 virus documented in this encounter Results * CORONAVIRUS 2019 (11/15/2020 9:37 AM EDT) CORONAVIRUS [id number] Not Detected Not Detected 11/15/2020 11:23 PM EDT [employer] Comment: Caution should be exercised when interpreting a result of 'Not Detected'. A result of 'Not Detected' does not rule out COVID-19 and cannot be used as sole basis for treatment or patient management decisions. If COVID-19 is still suspected following a 'Not Detected' result, re-testing should be considered. This test is a nucleic acid amplification test intended for the qualitative detection of nucleic acid from the SARS-CoV-2 in upper respiratory samples collected from individuals suspected of COVID-19. Test is performed on the [employer] platform under the FDA's Emergency Use Authorization (EUA). [facility] Provider Fact Sheet: https://www.fda.gov/media/132241/download [facility] Patient Fact Sheet: ??https://www.fda.gov/media/512566/download Performed at [facility] [address] [place] [address] CLIA [id number] Swab BOTH ANTERIOR NARES / Unknown 11/15/2020 9:37 AM EDT 11/15/2020 9:37 AM EDT Brett So MD MICROBIOLOGY - GENERAL ORDER MAURICE Final Result [facility] [address] [facility], [place] [address] documented in this encounter Visit Diagnoses Diagnosis Pre-op testing Preoperative examination, unspecified Encounter for laboratory testing for COVID-19 virus documented in this encounter Care Teams Audiology Director Relationship Specialty Start Date End Date Nehemias Barron MD [address] [place] [address] PCP - General 12/01/10 Easton Thompson MD [address] [place] [address] [address] [place] [address] Physician Obstetrics & Gynecology 01/29/14 Radha Wild APRN [address] [facility] [place] [id number] Nurse Practitioner 11/04/15 documented as of this encounter
--- OUTSIDE RECORDS SUMMARY | 2024-03-07 05:04 | XMS_ITS | Encounter Summary ---
Author Organization [place] [address] Care Team Providers Care Analytics Intern Name Role Phone Nehemias Barron MD Primary Care Provider [phone] Easton Thompson MD Unavailable [phone] Radha Wild [employer] Unavailable [phone] Reason for Visit * Reason Comments Pharmacy Hep C Management Pharmacy Initial Assessment Encounter Details Date Type Department Care Team (Latest Contact Info) Description 01/01/2021 3:15 PM EDT - 01/01/2021 3:19 PM EDT Hospital Encounter [facility] [address] [facility] [address] [place] [id number] Sabine Chan MD [phone] [phone] Shirley Bhatt RPH Abdominal pain, RLQ (right lower quadrant) (Primary Dx); Chronic hepatitis C without hepatic coma (HCC) [...] 12/05/2020 01/02/2021 documented as of this encounter Ordered Prescriptions Prescription Sig Dispense Quantity Refills Last Filled Start Date End Date sofosbuvir-velpata svir (EPCLUSA) 400-100 mg Oral TabletIndications: Chronic hepatitis C without hepatic coma (HCC) Take 1 Tablet by mouth daily. 84 Tablet 03/31/2021 1:13 PM EST 02/03/2021 12/29/2021 documented in this encounter Discharge Disposition Disposition Code Departure Means Destination Home or Self Care documented in this encounter Progress Notes * Miller Shirley, CHARLES - 01/01/2021 3:30 PM EDT [facility]ication Management [facility] - Hepatitis C Initial Subjective Bonny Olivares is a 30 y.o. female, who is being seen in the medication management clinic for evaluation of hepatitis C treatment plan. Referral placed by Dr. So. 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 She has recently been released from incarceration a few months ago. HPI: Six months ago, patient presented with abdominal pain which led to a 10 lb weight loss over a few weeks due to poor p.o. intake. The pain used to be intermittent and persisted 24/7 and radiated from lower right back to right lower quadrant. She also reported straining bowel movements and bright red stool. Hx ofdepression, cervical dysplasia, nicotine dependence and seizure disorder. Treatment Status: Naive Past medications: none risk: pt is sexually active not on OC. She is interested in getting the Nexplanon implant. Pt is also being evaluated for possible cervial dysplasia, her front desk clerk wants her to defer starting OC for now, until they determine next steps for eval. Pt is to get Pelvic US today History of illicit drug use: Yes (cocaine, last use 02/2020). 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 Illicit drug and alcohol free for last 6 months: Yes Extended Emergency Contact Information Primary Emergency Contact: Becky Olivares [facility] Relation: Mother Secondary Emergency Contact: Dallas Arzate [employer] Relation: Significant other Objective Hepatitis C jason/subtype: 3 10/27/2020 16:14 11/07/2020 10:42 HCV Genotype 3a 3a HCV Quantitative Interpretation Detected (A) HCV Qnt by NAAT (IU/mL) 153,389 HCV Qnt by NAAT (log IU/mL) 5.19 Hepatitis B 01/29/2014 15:44 01/15/2015 14:26 11/07/2020 10:42 Hep Bs Ab <3.08 Hep Bs Ag Negative Negative Non-Reactive Hepatitis A 11/07/2020 10:42 Hep A IgM Non-Reactive HIV Ag/AB (no units) Date Value 11/11/2020 Non-Reactive 01/15/2015 Non-Reactive Lab Results Component Value Date PLT 187 03/30/2020 Fibrosis score: F0/F1 F0 - no fibrosis F1 - portal fibrosis without septa F2 - portal fibrosis with few septa F3 - numerous septa without cirrhosis F4 - cirrhosis Source of fibrosis score: Fibrosure 11/11/2020 01/22/2014 15:54 INR 1.16 (H) 11/07/2020 10:42 ALT 20 AST 19 Bili Direct <0.2 Bili Total 0.5 Albumin 4.4 Alk Phos 65 Total Protein 7.3 10/31/2020 Ultrasound: Unremarkable right upper quadrant ultrasound. 10/30/2015 15:55 6 AM (Heroin) Screen Absent Benzodiazepines Screen Absent Buprenorphine Screen Absent Cannaboinoid Screen, Urine Absent Cocaine(Metab.)Screen, Urine Absent Creatinine Ur >25.0 Opiate 300 Screen Absent Oxycodone Screen Absent Phencyclidine Screen Absent Methadone Screen, Urine Absent Amphetamine Screen, Urine Absent Barbiturate Screen, Urine Absent Cirrhosis: No Extrahepatic manifestations: Child-Hector: 5 Lab Results Component Value Date BUN 12 10/30/2015 CREATININE 0.74 10/30/2015 Current Outpatient Medications Medication ??? albuterol (PROVENTIL HFA;VENTOLIN HFA) 90 mcg/actuation Inhl HFA Aerosol Inhaler ??? ibuprofen (ADVIL;MOTRIN) 200 mg Oral Tablet ??? levETIRAcetam (KEPPRA) 750 mg Oral Tablet ??? hepatitis B vaccine (ENGERIX-B) 20 mcg/mL IM Syringe ??? linaCLOtide (LINZESS) 290 mcg Oral Capsule ??? pneumococcal vaccine (PNEUMOVAX 23) 25 mcg/0.5 mL Inj Syringe ??? polyethylene glycol (MIRALAX) 17 gram Oral Powder in Packet No current facility-administered medications for this encounter. Assessment 1. Hepatitis C: Patient is treatment naive presenting with GT3a and positive Hepatitis C PCR. Patient has not had a liver transplant or liver cancer. Patient denies ETOH/drugs within last 6 months without a recent toxicology screening. Choice of drug will depend on her contraception plan (see assesment #3 below). If pt is able to obtain the Nexplanon implant in a timely manner, will opt for sof/wayne. If she is unable to, then will opt for G/P to allow for shorter time on treatment ?? Proposed treatment: ?? Mavyret - glecaprevir (300 mg)/pibrentasvir (120 mg) - 8 weeks - not ideal d/t need for bimonthly LFT checks d/t FDA alert ?? Epclusa - sofosbuvir (400 mg)/velpatasvir (100 mg) - 12 weeks ?? Medications interactions requiring action: none Drug Interactions Drug interactions evaluated: yes Clinically relevant drug interactions identified: no Provided the patient with educational material regarding drug interactions: not applicable ?? Patient preference: G/P if unable to get implant, sof/wayne if she is able to obtain implant ?? Preferred treatment per insurance: unknonw 2. Immunizations: Pt is not immune to hep B which was administered today. She is also due for pneumovax 23 as she is a current smoker which was administered today. She is eligible for a few other vaccinations, but will discuss at next visit. Will defer hep A for now d/t latex allergy, although could consider in future as it does not appear her allergy to latex is severe Vaccine Date(s) given/ positive serology Due date Influenza Now Hepatitis A Now, but will defer d/t latex allergy Hepatitis B Now PPSV23 08/01/2011 Now Tdap/Td 07/15/2015 Completed COVID-19 Now 3. risk: Pt is sexually active, and does report getting on OC in the past. She is interested in obtaining nexplanon, but given her foot setter work up for rectal bleeding issues, she is unsure when she will be able to obtain. Will opt for sof/wayne if she is able to obtain this in a timelymanner, and will pursue G/P if she is not able to obtain. Pt is aware to keep us updated and try toavoid while on hep c therapy. We do not have a recent test, pt plans to obtain this week 3. Environmental concerns noted: none 4. Mental capacity concerns noted: none 5. Functional/Dietary limitations noted: none Plan: 1. Treatment plan: wither sof/wayne x 12 weeks or G/P x 8 weeks pending contraception plans 2. Labs needed prior to submission: HCG quant, hep b core total (can defer to 4 week labs) 3. Action items requiring follow-up: ?? F/u on test, and call patient to determine contraception plans ?? Submit PA 4. Follow-up: 4 week(s) after DAA treatment is initiated with labs at 4 weeks into treatment and 12weeks post treatment completion Patient is aware to call the pharmacy clinic when she receives her hepatitis C treatment medication. Patient Counseling Counseled the patient on the following: doses and administration discussed, safe handling, storage,and disposal discussed, possible adverse effects and management discussed, possible drug and prescription drug interactions discussed, possible drug and OTC drug and food interactions discussed, lab m onitoring and follow-up discussed, therapeutic rationale discussed, cost of medications and cost implications discussed, adherence and missed doses discussed, pharmacy contact information discussed Reviewed plan of care, expected outcomes, and goals of therapy with patient who verbalized understanding and is agreeable with plan. After all this medication education was given to Bonny Olivares, medication compliance was again reinforced. The patient understood the medication regimen and how to take them if she were to begin therapy. The patient will call if any issues arise during therapy before stopping the medication. Counseling was completed by asking the patient if they had any additional questions. The patient was provided/will be provided a Welcome Packet with information on pharmacy services, their rights and responsibilities, and the Notice of Privacy Practices. This information was reviewedwith the patient and he/she understands to contact the pharmacy with any questions or concerns theymay have after reviewing the material. * Itzel Ponce RPH - 01/01/2021 3:19 PM EDT Medication Management Clinic - Hepatitis C Calling patient to determine if she has been able to get Nexplanon and remind her of need for test. 01/28/2021 1:55 PM Patient states that she went to OB office ([facility] in [place]) on 01/23/21. Did not get Nexplanon put in that day, but will be scheduling appt for Nexplanon soon. For now, she has been startedon an oral contraceptive, but she is not sure the name of it and does not have paperwork with her at this time. Reports she did get test on 01/23/21 for OB. Asking [facility] to contact [facility] for results to avoid getting another test. Will route to [facility] tech to try to get records from [facility]. Patient to return call to clinic with more information about oral contraceptive. Itzel Ponce PharmD * Ritu Samaniego RPH - 01/01/2021 3:19 PM EDT Hepatitis C Medication Management Clinic - Addendum 02/03/2021 4:46 PM *Spoke with access representative from [facility] on 02/03/21. Confirmed patient had negative test on 01/23/21. Confirmed with patient that she started taking hormonal contraceptives.* Patient now on hormonal contraceptive and test negative on 01/23/21. Will send prescription for sofosbuvir (400 mg)/velpatasvir (100 mg) (Epclusa) x 12 weeks. Thank you for allowing me to participate in the care of this patient. Ritu Samaniego PharmD documented in this encounter Miscellaneous Notes * Patient Instructions - Shirley Bhatt RP - 01/01/2021 3:30 PM EDT ?? Let us know if you get nexplanon Patient Education - Treatment with Epclusa (Sofosbuvir and Velpatasvir) What is Epclusa? ?? Epclusa is a combination of two medications sofosbuvir and velpatasvir ?? It works by blocking two different proteins that the hepatitis C virus needs to grow How is Epclusa given? ?? Epclusa is a pill taken by mouth once daily that contains 400 mg of sofosbuvir and 100 mg of velpatasvir ?? Epclusa can be taken with or without food but should be taken around the same time each day It is recommended to avoid acid reducing/heartburn medications during treatment if possible. Pleasediscuss with your family doctor prior to stopping. ?? Swallow pills whole; do not crush, break, cut, or dissolve ?? It is important not to miss a dose of this medicine. If you do miss a dose, do not take a doubledose (two doses together) to make up for a forgotten dose. Let your doctor know if you miss multiple doses in a row. What can I expect? ?? You and your partner need to use two forms of control (i.e. condom for men and control pills or diaphragm for women) ?? Please let us know about all the medicines you take, including any prescription and non-prescription drugs, vitamins, minerals, natural and herbal supplements or alternative medicines. ?? There is the potential that Epclusa could interact with one of your other medications. Current medications should be screened prior to starting therapy and all new medications should be reviewed while undergoing treatment. ?? Some of the common reported side effects include: ?? Fatigue- napping and physical activity can help fight fatigue ?? Naps: Limit to one hour. Avoid late afternoon naps. This helps avoid problems with nighttime sleeping ?? Physical activity: 30 minutes of moderate activity (e.g. walking) on most days is recommended for all people. ?? Headaches- May use [id number] pain relievers ?? Recommend avoiding use of NSAIDs (ibuprofen, naproxen) ?? Acetaminophen (Tylenol) can be used by most patients. Do not exceed 2,000 mg (2 grams) per day if you have cirrhosis. Storage ?? Room Temperature ?? Dry Environment ?? Keep out of reach of children For more information of treatment, diagnosis, and support for patients with Hepatitis C visit hepc.liverfoundation.org Patient Education - Treatment with Mavyret (glecaprevir and pibrentasvir) What is Mavyret? Mavyret is a combination of two medications glecaprevir and pibrentasvir ??? It works by blocking the virus from being able to replicate (grow) How is Mavyret given? Mavyret should be taken as 3 pills once daily with food ??? Swallow pills whole; do not crush, break, cut, or dissolve ?? It is important not to miss a dose of this medicine. If you do miss a dose, do not take a doubledose (two doses together) to make up for a forgotten dose. Let your doctor know if you miss multiple doses in a row. What can I expect? You and your partner need to use two forms of control (i.e. condom for men and control pills or diaphragm for women). control pills containing ethinyl estradiol should be stopped and not used while taking Mavyret. Talk to your doctor about using non-hormonal methods or progestin only contraception while on Mavyret. ??? Please let us know about all the medicines you take, including any prescription and non-prescription drugs, vitamins, minerals, natural and herbal supplements or alternative medicines. o There is the potential that Mavyret could interact with one of your other medications. Current medications should be screened prior to starting therapy and all new medications should be reviewed while undergoing treatment. ??? Some of the common reported side effects include: o Fatigue- napping and physical activity can help fight fatigue - Naps: Limit to one hour. Avoid late afternoon naps. This helps avoid problems with nighttime sleeping - Physical activity: 30 minutes of moderate activity (e.g. walking) on most days is recommended forall people. o Headaches- May use [id number] pain relievers - Recommend avoiding use of NSAIDs (ibuprofen, naproxen) - Acetaminophen (Tylenol) can be used by most patients. Do not exceed 2,000 mg (2 grams) per day. o Nausea - avoid taking with spicy or greasy foods Storage ??? DO NOT take the pills out of the original blister package and store in another container such as a pill box. ??? Keep out of reach of children For more information of treatment, diagnosis, and support for patients with Hepatitis C visit hepc.liverfoundation.org * Addendum Note - Itzel Ponce RPH - 01/01/2021 3:19 PM EDTEncounter addended by: Itzel Ponce RPH on: 01/28/2021 1:58 PM Actions taken: Clinical Note Signed * Addendum Note - Ritu Samaniego RPH - 01/01/2021 3:19 PM EDTEncounter addended by: Ritu Samaniego RPH on: 02/03/2021 4:47 PM Actions taken: Outside historical medications filed, Order Reconciliation Section accessed, Clinical Note Signed, Home Medications modified, Medication taking status modified, Pharmacy for encounter modified, Order list changed, Diagnosis association updated documented in this encounter Plan of Treatment Not on file documented as of this encounter Goals Goal Patient Goal Type Associated Problems Recent Progress Patient-Stated? Author Maintain a healthy diet, exercise regularly and maintain an ideal body weight General No Shraddha Dolan LPN Stay Tobacco Free Lifestyle No Shraddha Dolan LPN documented as of this encounter Results * HEPATITIS B CORE AB TOTAL (03/11/2021 11:45 AM EST) Hep B Core Total Non-Reacti ve Non-Reacti ve 03/11/2021 1:03 PM EST [facility] VENOUS BLOOD / Unknown Venipuncture / Unknown 03/11/2021 11:45 AM EST 03/11/2021 11:45 AM EST us Brett So MD IMMUNOLOGY ORDERABLES Final Result [facility], [address] , [place] [address] * HUMAN CHORIONIC GONADOTROPIN QUANTITATIVE (03/11/2021 11:45 AM EST) Hcg Quant <1 <5 mIU/mL 03/11/2021 1:1 9 PM EST [facility] Blood VENOUS BLOOD / Unknown Venipuncture / Unknown 03/11/2021 11:45 AM EST 03/11/2021 11:45 AM EST Narrative [facility] - 03/11/2021 1:19 PM EST Ingestion of [...] So MD CHEMISTRY ORDERABLES Final R esult [facility] [address] [place] [address] documented in this encounter Visit Diagnoses Diagnosis Abdominal pain, RLQ (right lower quadrant)- Primary Abdominal pain, right lower quadrant Chronic hepatitis C without hepatic coma (HCC) documented in this encounter Historical Medications * This list may reflect changes made after this encounter. albuterol (PROVENTIL HFA;VENTOLIN HFA) 90 mcg/actuation Inhl HFA Aerosol Inhaler Inhale 2 Puffs into the lungs every 6 hours as needed for Wheezing. DELLA 0.25-35 mg-mcg Oral Tablet Take 1 Tablet by mouth daily. 01/23/2021 12/29/2021 ibuprofen (ADVIL;MOTRIN) 200 mg Oral TabletIndications :pain Take 200 mg by mouth. Pt takes twice weekly Indications: pain 10/25/2021 added in this encounter Care Teams Analytics Intern Relationship Specialty Start Date End Date Nehemias Barron MD [address] [facility] [place] [address] PCP - General 12/01/10 Easton Thopmson MD [address] [place] [address] [address] [place] [address] Physician Obstetrics & Gynecology 01/29/14 Radha Wild APRN [address] [place] [address] Nurse Practitioner 11/04/15 documented as of this encounter
--- OUTSIDE RECORDS SUMMARY | 2024-03-07 05:04 | XMS_ITS | Encounter Summary ---
Author Organization [place] [address] Care Team Providers Care Vocal Music Instructor Name Role Phone Nehemias Barron MD Primary Care Provider [phone] Easton Thompson MD Unavailable [phone] Radha Wild APRN Unavailable [phone] Encounter Details Date Type Department Care Team (Latest Contact Info) Description 11/11/2020 1:15 PM EDT - 11/11/2020 11:59 PM EDT Hospital Encounter [facility] [address] [place] [address] Rectal bleeding; Abdominal pain, RLQ (right lower quadrant) Discharge Disposition: Home or Self Care Social [...] 10/27/2020 3:29 PM EDAnel Shipman RMA * Is the person blind or [...] EDAnel Shipman RMA documented in this encounter Medications at [...] Procedure Name Priority Date/Time Associated Diagnosis Comments LIVER FIBROSIS, CHRONIC VIRAL HEPATITIS PANEL - REF LAB Routine 11/11/2020 1:17 PM EDT Rectal bleeding Abdominal pain, RLQ (right lower quadrant) HIV AG/AB Routine 11/11/2020 1:16 PM EDT Rectal bleeding Abdominal pain, RLQ (right lower quadrant) documented in this encounter Results * LIVER FIBROSIS, CHRONIC VIRAL HEPATITIS PANEL - REF LAB (11/11/2020 1:17 PM EDT) Vrdpg-1-Ughngygensv in, Fibrometer 202 131 - 293 mg/dL 11/14/2020 3:12 AM EDT [facility] Alanine Aminotransferase, Fibrometer 22 5 - 40 U/L 11/14/2020 3:12 AM EDT [facility] Aspartate Aminotransferase, Fibrometer 17 9 - 40 U/L 11/14/2020 3:12 AM EDT [facility] Gamma Glutamyl Transferase, Fibrometer 12 7 - 33 U/L 11/14/2020 3:12 AM EDT [facility] Urea Nitrogen, Fibrometer 9 7 - 20 mg/dL 11/14/2020 3:12 AM EDT [facility] Fibrometer Platelet Count 194 k/uL 11/14/2020 3:12 AM EDT [facility] Fibrometer Prothrombin Index 99 90 - 120 % 11/14/2020 3:12 AM EDT [facility] Fibrometer Patient Score 0.12 11/14/2020 3:12 AM EDT [facility] Cirrhometer Patient Score 0.01 11/14/2020 3:12 AM EDT [facility] Fibrosis Metavir Classification F0/F1 11/14/2020 3:12 AM EDT [facility] Comment: INTERPRETIVE INFORMATION: Fibrosis Metavir Classification FibroMeter (fibrosis score) comments F0/F1 ?Equal probability between F0 and F1 F1[F1-F2] ??Predominance of F1, but F2 is possible F2[F1-F2] ??Predominance of F2, but F1 is possible F2[F1-F3] ??Predominance of F2, but F1 and F3 are possible F2/F3 ?Equal probability between F2 and F3 F3[F2-F4] ??Predominance of F3, but F2 and F4 are possible F3[F3-F4] ??Predominance of F3, but F4 is possible F4[F3-F4] ??Predominance of F4, but F3 is possible Inflameter Patient Score 0.27 11/14/2020 3:12 AM EDT [facility] Inflameter Metavir Classification A0/A1 11/14/2020 3:12 AM EDT [facility] Comment: INTERPRETIVE INFORMATION: InflaMeter Metavir Classification InflaMeter (activity score) comments A0/A1 ? Equal probability between A0 and A1 A1/A2 ? Equal probability between A1 and A2 A2/A3 ? Equal probability between A2 and A3 EER Fibrometer Report See Note 11/14/2020 3:12 AM EDT [facility] Comment: Access [facility] Enhanced Report using the link below: -Direct access: [email or web address] Fibrometer Interpretation See Report 11/14/2020 3:12 AM EDT [facility] Comment: [12] [17] INTERPRETIVE INFORMATION: Fibrometer Interpretation Calculations for the final report are based on accurate data for age, gender, and platelet count. If any of this information needs to be corrected, please contact [facility] to request a recalculation. Client Services may be contacted at . The [employer] FibroMeter profile serves as a surrogate marker of liver fibrosis, cirrhosis, and necro-inflammatory activity. A proprietary algorithm calculates and compares results from 7 blood markers along with age and gender to provide a patient score (from 0 to 1) and a correlated fibrosis stage (Metavir F0-F4) and activity grade (Metavir A0-A3). The fibrosis/cirrhosis score is further evaluated by a rules-based system to detect anomalous profile results which may modify the fibrosis/cirrhosis score as needed. Results should be interpreted in conjunction with the patient's clinical history; particularly when the rules-based system has modified the scores. Legend: -Metavir is a histological scoring system for determining the extent of liver fibrosis and inflammation. STAGE OF FIBROSIS (F scale) F0 = no fibrosis F1 = portal fibrosis without septa F2 = portal fibrosis with few septa F3 = numerous septa without cirrhosis F4 = cirrhosis GRADE OF NECRO-INFLAMMATORY ACTIVITY (A scale) A0 = no activity A1 = mild activity A2 = moderate activity A3 = severe activity -Platelet count result provided by client. -The Prothrombin Index test expresses the Prothrombin Time (PT) as a percentage of normal, and is used to standardize PT results across different instrument/reagent combinations. This test was developed and its performance characteristics determined by [employer]. It has not been cleared or approved by the US Food and Drug Administration. This test was performed in a CLIA certified laboratory and is intended for clinical purposes. Performed By: [facility] [address] [place] [address] Manager Case Management: Prabha Lovell MD Blood VENOUS BLOOD / Unknown Venipuncture / Unknown 11/11/2020 1:17 PM EDT 11/11/2020 1:18 PM EDT Brett So MD CHEMISTRY ORDERABLES Final R esult Performing Organization Address [facility]/ZIP Co de Phone Number [email or web address] [address] [place] [address] * HIV AG/AB (11/11/2020 1:16 PM EDT) HIV Ag/AB Non-Reactiv e Non-Reacti ve 11/11/2020 9:29 PM EDT [facility] Blood VENOUS BLOOD / Unknown Venipuncture / Unknown 11/11/2020 1:16 PM EDT 11/11/2020 1:16 PM EDT Brett So MD IMMUNOLOGY ORDERABLES Final Result Performing Organization Address [facility]/ZIP Co de Phone Number [email or web address] [address] [place] [address] , [place] [address] documented in this encounter Visit Diagnoses Diagnosis Rectal bleeding Hemorrhage of rectum and anus Abdominal pain, RLQ (right lower quadrant) Abdominal pain, right lower quadrant documented in this encounter Care Teams Vocal Music Instructor Relationship Specialty Start Date End Date Nehemias Barron MD [address] [place] [address] PCP - General 12/01/10 Easton Thompson MD [address] [place] [address] [address] [place] [address] Physician Obstetrics & Gynecology 01/29/14 Radha Wild APRN [address] [place] [address] Nurse Practitioner 11/04/15 documented as of this encounter
--- OUTSIDE RECORDS SUMMARY | 2024-03-07 05:04 | XMS_ITS | Encounter Summary ---
Author Organization [place] [address] Care Team Providers Care Wheel Tuner Name Role Phone Nehemias Barron MD Primary Care Provider [phone] Easton Thompson MD Unavailable [phone] Radha Wild SOLARIS ADMINISTRATOR Unavailable [phone] Reason for Visit * Reason Comments Pharmacy Hep C Management Encounter Details Date Type Department Care Team (Latest Contact Info) Description 02/04/2021 Specialty Pharmacy [facility] [address] [place] [address] Jennifer Diaz CPhT Pharmacy Hep C Management Social History [...] Assessment Author No 10/27/2020 3:29 PM EDT Catracho Hopezev Conleyanda, RMA * Does this person have serious difficulty walking or climbing stairs? Answer Date of Assessment Author No 10/27/2020 3:29 PM EDT Anel Hope, RMA * Does this person have difficulty [...] PM EDT Jayy Anel Campbell, RMRigo documented in this encounter Progress Notes * Jennifer Diaz CPhT - 02/04/2021 10:57 AM EDT [facility] Prescription received for epclusa. Prescription requires prior authorization. CR completed by [facility]. Will route to [employer] to complete. * Chiquita Tarango CPhT - 02/04/2021 10:57 AM EDT [facility] Submitted PA for Epclusa to Differential insurance via [employer] (Messer [id number]). Will follow up for clinical questions. No answer, unable to leave voicemail. * Michelle Kaur CPhT - 02/04/2021 10:57 AM EDT [facility] Answered clinical questions per CMM * Cathie Unger CPhT - 02/04/2021 10:57 AM EDT [facility] Received faxed PA approval for Epclusa. It has been approved for 02/04/21 to 04/29/21. Patient is able to fill at [facility]. Copay is $0.00. Spoke with patient. documented in this encounter Plan of Treatment [...] on filedocumented in this encounter Care Teams Wheel Tuner Relationship Specialty Start Date End Date Nehemias Barron MD [address] [place] [address] PCP - General 12/01/10 Easton Thompson MD [address] [place] [address] [address] [place] [address] Physician Obstetrics & Gynecology 01/29/14 Radha Wild APRN [address] [place] [address] Nurse Practitioner 11/04/15 documented as of this encounter
--- OUTSIDE RECORDS SUMMARY | 2024-03-07 05:04 | XMS_ITS | Encounter Summary ---
Author Organization [place] [address] Care Team Providers Care Labor Crew Supervisor Name Role Phone Nehemias Barron MD Primary Care Provider [phone] Easton Thompson MD Unavailable [phone] Radha Wild APRN Unavailable [phone] Reason for Referral * Consultation (Routine) - Closed Specialty Diagnoses / Procedures Referred By Eusebia t Referred To Contact Obstetrics and Gynecology Diagnoses Right ovarian cyst Nehemias Barron MD [address] [place] [address] Phone: tel: fax: [facility] [address] [place] [address] Phone: tel: fax: Referral ID Status Reason Start Date Expiration Date Visits Re quested Visits Authorized [id number] Closed 12/11/2020 12/11/2021 99 99 Reason for Visit * Reason Onset Date Comments Referral 12/11/2020 gynecology Encounter Details Date Type Department Care Team (Late st Contact Info) Description 12/11/2020 Telephone [facility] [address] [place] [address] Nehemias Barron MD [address] [place] [address] Referral (gynecology) Social History Tobacco Use Types Packs/Day Years [...] Anel Hope RMA documented in this encounter Miscellaneous Notes * Telephone Encounter - Lilly Sherman RMA - 12/11/2020 3:22 PM EDT Referral placed and number given to patient * Telephone Encounter - Meka Jung - 12/11/2020 1:40 PM EDT Referral Request Who is requesting the referral: Patient What type of referral: gynecology What is the reason / diagnosis for this referral:abdominal pain Have you been seen by your PCP for this issue: Yes Does patient have a preference on a group/provider: No Preferred Provider/Group Name: na Preferred Provider/Group Phone Number: na Preferred Provider/Group Fax Number: na Additional Information: Pt called stating that Dr. Barron told her that if her colonoscopy came backnormal that next step would be referral to gynecology. Pt requesting referral be done for next stepinto finding the problem. Please advise. documented in this encounter Plan of Treatment Scheduled Referrals Name Type Priority Associated Diagnoses Orde r Schedule AMB REFERRAL TO OB-GANTRY CRANE OPERATOR Outpatient Referral Routine Right ovarian cyst Ordered: 12/11/2020 documented as of this encounter Goals Goal Patient Goal Type Associated Problems Recent Progress Patient-Stated? Author Maintain a healthy diet, exercise regularly and maintain an ideal body weight General No Shraddha Dolan LPN Stay Tobacco Free Lifestyle No Shraddha Dolan LPN documented as of this encounter Visit Diagnoses Diagnosis Right ovarian cyst- Primary Other and unspecified ovarian cyst documented in this encounter Care Teams Labor Crew Supervisor Relationship Specialty Start Date End Date Nehemias Barron MD [address] [place] [id number] PCP - General 12/01/10 Easton Thompson MD [address] [place] [address] [address] [place] [address] Physician Obstetrics & Gynecology 01/29/14 Radha Wild APRN [address] [place] [address] Nurse Practitioner 11/04/15 documented as of this encounter
--- OUTSIDE RECORDS SUMMARY | 2024-03-07 05:04 | XMS_ITS | Encounter Summary ---
Author Organization [place] [address] Care Team Providers Care Supervisor Coal Handling Name Role Phone Nehemias Barron MD Primary Care Provider [phone] Easton Thompson MD Unavailable [phone] Radha Wild APRN Unavailable [phone] Reason for Visit * Reason Comments Other would like pain meds until gastro appt Encounter Details Date Type Department Care Team (Latest Contact Info) Description 11/12/2020 11:15 AM EDT Office Visit [facility] [address] [facility] [place] [address] Nehemias Barron MD [address] [place] [address] Abdominal pain, RLQ (right lower quadrant); Right flank pain Social History Tobacco Use Types Packs/Day Years [...] Sign Reading Time Taken Comments Blood Pressure 118/64 11/12/2020 11:01 AM EDT Pulse 122 11/12/2020 11:01 AM EDT Temperature 36.7 ??C (98.1 ??F) 11/12/2020 11:01 AM E DT Respiratory Rate - - Oxygen Saturation 98% 11/12/2020 11:01 AM EDT Inhaled Oxygen Concentration - - Weight 62 kg (136 lb 9.6 oz) 11/12/2020 11:01 AM EDT Height 165.1 cm (5' 5 ) 11/12/2020 11:01 AM EDT Body Mass Index 22.73 11/12/2020 11:01 AM EDT documented in this encounter Functional Status [...] Date Author No 10/27/2020 3:29 PM EDT Hope , Anel Shannan, RMA documented in this encounter Ordered Prescriptions Prescription Sig Dispense Quantity Refills Last Filled Start Date End Date HYDROcodone-acetam inophen (NORCO) 5-325 mg Oral TabletIndications: Abdominal pain, RLQ (right lower quadrant),Right flank pain Take 1 Tab by mouth every 6 hours as needed for Acute Pain (R52) for up to 3 days. 12 Tab 11/12/2020 11/15/2020 documented in this encounter Progress Notes * Nehemias Barron MD - 11/12/2020 11:15 AM EDT Vitals: 11/12/20 1101 BP: 118/64 Pulse: 122 Temp: 98.1 ??F (36.7 ??C) SpO2: 98% Weight: 136 lb 9.6 oz (62 kg) Height: 5' 5 (1.651 m) SUBJECTIVE: Chief Complaint Patient presents with ??? Other would like pain meds until gastro appt HPI: Saw Dr So yesterday Still with R sided abd pain and R flank pain Unfortunately no improvement on protonix, sucralafate, DC'd by GI Has EGD, colonoscopy scheduled for next TUE Will be scheduling HIDA scan, prev ordered by me CT abd normal GB US normal BW all normal Will be pursuing treatment for hep C per GI Using norco at bedtime only #12 rx'd 12 days ago, now out Requesting refill for pain relief until can figure out the cause Started on miralax BID by GI for ch constipation yesterday Review of Systems All other systems reviewed and are negative. OBJECTIVE: Physical Exam Vitals signs and nursing note reviewed. Constitutional: General: She is not in acute distress. Appearance: Normal appearance. She is well-developed and normal weight. HENT: Head: Normocephalic. Right Ear: External ear normal. Left Ear: External ear normal. Nose: Nose normal. Mouth/Throat: Mouth: Mucous membranes are moist. Pharynx: Oropharynx is clear. Eyes: General: No scleral icterus. Extraocular Movements: Extraocular movements intact. Conjunctiva/sclera: Conjunctivae normal. Pupils: Pupils are equal, round, and reactive to light. Neck: Vascular: No carotid bruit. Cardiovascular: Rate and Rhythm: Normal rate and regular rhythm. Pulses: Normal pulses. Heart sounds: Normal heart sounds. No murmur. Comments: No carotid bruits Pulses 2 + equal throughout Pulmonary: Effort: Pulmonary effort is normal. Breath sounds: Normal breath sounds. Abdominal: General: Abdomen is flat. Tenderness: There is abdominal tenderness (R sided, same as previous). Musculoskeletal: Right lower leg: No edema. Left lower leg: No edema. Skin: Capillary Refill: Capillary refill takes less than 2 seconds. Neurological: General: No focal deficit present. Mental Status: She is alert and oriented to person, place, and time. Mental status is at baseline. Psychiatric: Mood and Affect: Mood normal. Behavior: Behavior normal. Assessment Diagnoses and all orders for this visit: Abdominal pain, RLQ (right lower quadrant) Overview: Added automatically from request for surgery [id number] Orders: - HYDROcodone-acetaminophen (NORCO) 5-325 mg Oral Tablet; Take 1 Tab by mouth every 6 hours as needed for Acute Pain (R52) for up to 3 days. Dispense: 12 Tab; Refill: 0 Right flank pain - HYDROcodone-acetaminophen (NORCO) 5-325 mg Oral Tablet; Take 1 Tab by mouth every 6 hours as needed for Acute Pain (R52) for up to 3 days. Dispense: 12 Tab; Refill: 0 Ok to refill norco, continue to use nightly only. Plan short term only until can find out the causeof her pain. I discussed risks of short term opiods for pain control with patient, including sedation, nausea, constipation, addiction, avoid driving when taking. kofi queried and as expected. Will schedule HIDA scan soon Has EGD, colonoscopy for next week with Dr So If all normal, will likely need SYNCHRONOUS MOTOR ASSEMBLER referral, did have hemorrhagic R ovarian cyst on CT, would needto ro endometriosis,etc documented in this encounter Plan of Treatment Not on file documented as of this encounter Goals Goal Patient Goal Type Associated Problems Recent Progress Patient-Stated? Author Maintain a healthy diet, exercise regularly and maintain an ideal body weight General No Shraddha Dolan LPN Stay Tobacco Free Lifestyle No Shraddha Dolan LPN documented as of this encounter Visit Diagnoses Diagnosis Abdominal pain, RLQ (right lower quadrant) Abdominal pain, right lower quadrant Right flank pain Abdominal pain, unspecified site documented in this encounter Discontinued Medications Medication Sig Discontinue Reason Start Date End Da te HYDROcodone-acetaminophe n (NORCO) 5-325 mg Oral TabletIndications:Abdomi nal pain, RLQ (right lower quadrant),Right flank pain Take 1 Tab by mouth every 6 hours as needed for Acute Pain (R52) for up to 3 days. Reorder 10/31/2020 11/12/2020 documented as of this encounter Care Teams Supervisor Coal Handling Relationship Specialty Start Date End Date Nehemias Barron MD [address] [place] [address] PCP - General 12/01/10 Easton Thompson MD [address] [place] [address] [address] [place] [address] Physician Obstetrics & Gynecology 01/29/14 Radha Wild APRN [address] [place] [address] Nurse Practitioner 11/04/15 documented as of this encounter
--- OUTSIDE RECORDS SUMMARY | 2024-03-07 05:04 | XMS_ITS | Encounter Summary ---
Author Organization [facility] [place] [address] Care Team Providers Care Milk And Cream Grader Name Role Phone Nehemias Barron MD Primary Care Provider [phone] Easton Thompson MD Unavailable [phone] Radha Wild WASTEWATER TREATMENT PLANT INSTRUCTOR Unavailable [phone] Encounter Details Date Type Department Care Team (Latest Contact Info) Description 11/15/2020 Travel Social History Tobacco Use Types Packs/Day [...] on filedocumented in this encounter Care Teams Milk And Cream Grader Relationship Specialty Start Date End Date Nehemias Barron MD [address] [place] [address] PCP - General 12/01/10 Easton Thompson MD [address] [place] [address] [address] [place] [address] Physician Obstetrics & Gynecology 01/29/14 Radha Wild APRN [address] [place] [address] Nurse Practitioner 11/04/15 documented as of this encounter
--- OUTSIDE RECORDS SUMMARY | 2024-03-07 05:04 | XMS_ITS | Encounter Summary ---
Author Organization [place] [address] Care Team Providers Care News Reel Cameraman Name Role Phone Nehemias Barron MD Primary Care Provider [phone] Easton Thompson MD Unavailable [phone] Radha Wild APRN Unavailable [phone] Reason for Visit * Auth/Cert/Inpt Specialty Diagnoses / Procedures Referred By Contac t Referred To Contact Diagnoses Rectal bleeding Abdominal pain, RLQ (right lower quadrant) Rectal bleeding [K62.5] Abdominal pain, RLQ (right lower quadrant) [R10.31] Procedures MD COLONOSCOPY FLX DX W/COLLJ SPEC WHEN PFRMD MD EGD TRANSORAL BIOPSY SINGLE/MULTIPLE Esophagogastroduodenoscopy with possible biopsy, polypectomy, banding, brushing, control of bleeding and/or dilation. Colonoscopy with possible biopsy, polypectomy, and/or control of bleeding Referral ID Status Reason Start Date Expiration Date Visits Re quested Visits Authorized [id number] 1 1 Encounter Details Date Type Department Care Team (Latest Contact Info) Description 11/19/2020 11:40 AM EDT - 11/19/2020 12:20 PM EDT Surgery [facility] ENDOSCOPY [address] [place] [address] Brett So MD [address] [place] [address] ESOPHAGOGASTRODUODENOSCOPY (ANESTHESIA) Surgery Details Date/Time Status Location OR Service Patient Class Case Cl ass Case Type Trauma Case? 11/19/2020 11:40 AM Posted G[facility] ENDOSCOPY [facility] ENDO 01 Endoscopy Outpatient Elective Panel 1 Procedure [facility] Anes Op Region Wound Class Comments ESOPHAGOGASTRODUODENOSCOPY (ANESTHESIA) N/A Monitored Anesthesia Care Esophagogastr oduodenoscopy COLONOSCOPY-ENDO DEPT ONLY (ANESTHESIA) N/A Monitored Anesthesia Care Colonoscopy Surgeon Surgeon Role Service Panel Brett So MD Primary Endoscopy 1 documented in this encounter Social History Tobacco Use Types Packs/Day Years [...] AM EDT documented as of this encounter Last Filed Vital Signs Vital Sign Reading Time Taken Comments Blood Pressure 104/61 11/19/2020 12:20 PM EDT Pulse 87 11/19/2020 12:20 PM EDT Temperature 36.9 ??C (98.4 ??F) 11/19/2020 11:51 AM E DT Respiratory Rate 16 11/19/2020 12:20 PM EDT Oxygen Saturation 100% 11/19/2020 12:20 PM EDT Inhaled Oxygen Concentration - - Weight 59.2 kg (130 lb 8 oz) 11/19/2020 10:43 AM EDT Height 165.1 cm (5' 5 ) 11/19/2020 10:43 AM EDT Body Mass Index 21.72 11/19/2020 10:43 AM EDT documented in this encounter Functional [...] Anel Dao RMA documented in this encounter Discharge Instructions * Discharge Instructions* Bia Cross RN - 11/19/2020 12:24 PM EDT [facility] Discharge Instructions - Following Endoscopy 1. A responsible adult, 18 years or older must be in attendance until the next A.M. 2. Rest quietly today. 3. May resume usual diet. 4. Do not drive or operate any machinery until the next A.M., or as instructed. 5. No alcoholic beverages for 24 hours. 6. Do not make any legal or important decisions for the next 24 hours. 7. Call the physician???s office for a follow-up visit or if questions 8. Patient discharged to the care of boyfriend ADDITIONAL INSTRUCTIONS: Call Dr So at [phone] if the following occurs: Colonoscopy: Severe abdominal pains and swelling (mild abdominal cramps and gas pains can be expected), nausea and vomiting, rectal bleeding (with biopsy or polyps a small amount of blood can be expected), body temp. over 101 degrees, chills. EGD: Abdominal pains, cramps, swelling, chest pains, difficulty in swallowing, chills, coughing blood, severe sore throat, or body temp. over 101 degrees. Other Instructions: Plan: - No findings to account for her symptoms. - Reports improvement in pain today after cleaning out for the colonoscopy. - Will start on Linzess 290 mcg. - Very tortuous colon. Medications Reviewed Copy of Discharge Medication Instruction Sheet Given +++++++++++++++++++++++++++++++++++++++++++++++++++++++++++++++++++ [facility] Discharge Instructions - Following Anesthesia We appreciate the opportunity to care for you today! Here are a few reminders as you head home: ?? A responsible adult, 18 years or older must be in attendance until tomorrow morning. ?? Rest quietly today. PLEASE BE SURE TO TAKE YOUR KEPPRA ?? May resume usual diet as tolerated or as directed by your surgeon. ?? Do not drive or operate any machinery until tomorrow morning or as instructed. ?? Do not make any legal or important decisions for the next 24 hours. ?? Do not drink alcoholic beverages or take sleeping pills for 24 hours unless otherwise directed. ?? If you received a nerve block for post-operative pain control, protect your blocked arm/leg. It is numb. Carefully pad your limb to prevent pressure sores and other injuries. Be careful with applying cold/warm to the blocked limb. Numbness will alter the sensation of the limb and could damage your skin if you cannot correctly feel the temperature. ?? If you have questions or concerns regarding your anesthesia experience, please call our office at . Get Well Soon! [facility] +++++++++++++++++++++++++++++++++++++++++++++++++++++++++++++++++++ documented in this encounter Medications at Time of Discharge levETIRAcetam (KEPPRA) 750 mg Oral TabletIndications: Seizure disorder (HCC) Take 2 Tabs by mouth 2 times daily. 120 Tab 12 10/15/2020 documented as of this encounter Ordered Prescriptions Prescription Sig Dispense Quantity Refills Last Filled Start Date End Date linaCLOtide (LINZESS) 290 mcg Oral Capsule Take 1 Capsule by mouth daily. 30 Capsule 2 11/19/2020 documented in this encounter Discharge Disposition Disposition Code Departure Means Destination Home or Self [facility] documented in this encounter Progress Notes * Abdulaziz Bonilla RN - 11/12/2020 2:10 PM EDT Patient is bringing in COVID swab results from [facility] the day of the procedure. Approved by Ambrose Mukherjee. Did give patient the phone number to [facility] just in case she had any other questions. Abdulaziz Bonilla RN documented in this encounter H&P Notes * Brett So MD - 11/19/2020 10:27 AM EDT Procedure: EGD/Colon ASA: 3 Mallampati: 3 Allergies: Allergies Allergen Reactions Latex Rash Citalopram Hives Effexor [Venlafaxine] Nausea And Vomiting and Other (See Comments) Shaky, lightheaded Sulfa (Sulfonamide Antibiotics) Swelling and Rash throat closes up, rash, and red everywhere Previous anesthesia reaction: No Pre-Procedure Assessment: Risks, benefits, potential complications and alternatives discussed with the patient or their legally authorized associate financial representative. The patient's pre-procedure physical assessment indicates that the patient is suitable candidate for and agrees to the planned sedation and procedure. NPO as ordered for procedure: Yes Cardiovascular and Vital signs Stable: yes Comment: Adequate/Patient Oral Airway yes Comment: H&P Update History and Physical within 30 days and on chart? yes I have reviewed the H&P and examined the patient. Changes? no List: Additional Findings: None This update is in reference to H&P performed by myself on 11/11/20 Physician Signature: Brett So MD Date:11/19/2020 Time:10:27 AM Source Note - Brett So MD - 11/11/2020 12:20 PM EDT [facility] Gastroenterology Consult Note Primary Care Physician: Nehemias [...] of the abdomen. The pain initially was intermittent and mostly with eating but now the pain is essentially persistent and there 24. The pain still worsens with any p.o. intake and then returns to a baseline. Work-up thus far has included a CT scan of the abdomen without contrast, right upper quadrant ultrasound and blood work which has been all unr emarkable. She reports a 10 pound weight loss [...] PROCEDURE (LEEP); Surgeon: Sachin Castellanos MD; Location: [facility] MAIN OR; Service: Gynecology ??? SKIN CANCER [...] file Gets together: Not on file Attends gnosticism service: Not on file Active member of [...] 2:52 PM CLINICAL HISTORY: R10.31-Right lower quadrant [id number] R10.9-Unspecified abdominal [id number]. COMPARISON: None. PROCEDURE COMMENTS: Multidetector CT examination [...] were reviewed in the medical chart and [facility] and summarized in the HPI. Assessment/Plan 1. [...] in consultation This note was generated by [employer] Voice Recognition technology. It has been reviewed by the undersigned, however, may still contain unintended errors. Brett So MD Warehouse Operations Manager [facility] [phone] documented in this encounter Nursing Notes * Abdulaziz Bonilla RN - 11/12/2020 2:06 PM EDT Images from the original note were not included. PREPARING FOR YOUR PROCEDURE Date of Surgery 11/19/2020 Arrival time 10:20am Medications ??? Take the following pills with a small sip of water on the morning of procedure: Keppra, norco if needed ??? Aspirin, Coumadin, blood thinners, ibuprofen, Plavix, fish oil, vitamin E, any supplements, andany anti-inflammatory products may be stopped as directed by your physician. Food, Drinks, Tobacco ?? For your safety, do not eat any food after midnight. This includes gum, mints, candy, chewing tobacco, and dip. If having a procedure which includes a prep, please follow office instructions. No exceptions or substitutions may be made to these restrictions. ??? For tobacco users: do not smoke or use any type of tobacco products within 24 hours prior to procedure. No beer, wine or alcohol 24 hours prior to procedure. Plywood Layup Line Core Feeder ??? On the day of procedure, it is important to have a Plywood Layup Line Core Feeder, someone who is 18 years or older, to accompany you and remain in or near the facility for the duration of your procedure. This person should be available for the Endoscopy Team to communicate with before, during and after your procedure. Someone should also remain with you for 24 [address] procedure to [address] you and make sure you are SAFE during that time. ??? A parent must accompany a child under 18 years of age scheduled for the procedure and plan to stay at the hospital until the child is discharged. Please do not bring children with you to the hospital. Hygiene ??? You may brush your teeth and gargle the morning of procedure. Do not swallow water. Personal Items ??? Please wear simple, loose fitting clothing to the hospital. Do not bring valuables (money, credit cards, check books, etc.) or wear any jewelry on day of procedure. Remove all body piercings prior to arrival. All jewelry must be removed to avoid injury. We will not tape wedding rings/bands. ??? If you have dentures, they may be removed before going into the procedure room, and we will provide a container for them. If you wear contact lenses or glasses, they must be removed. Please bringa case for them. ??? Do not remove hearing aids. You will wear them to procedure. Bring with You ?? If you have a Living Will and Durable Power of Rehab Director for Healthcare, please bring a copy. ??? If having procedure at the hospital and you wear CPAP or BIPAP, please bring your mask and the machine settings (not the actual machine) with you to the hospital on the day of your procedure. [facility] a machine to use during your hospital stay. ??? If you wear oxygen, please bring it with you to use during your travel to and from the hospital. If you are admitted, the hospital will supply oxygen for your use. ??? Please bring a photo ID and Insurance card with you the day of procedure. Notify the Doctor ??? For your safety, notify your doctor if you develop any illness between now and procedure time -- cough, cold, fever, sore throat, nausea, vomiting, etc. Please call your doctor???s office if you are unable to complete or tolerate prep prior to arrival time. Questions or Concerns? If you have any questions or concerns, feel free to call the contact number. We want to make sure you feel safe and have an excellent experience while you are here. Endoscopy [facility] at [phone] Physician Specialty Services Entrance 3A, check in at front desk person, [address] [place] [address] documented in this encounter Plan of Treatment [...] Procedure Name Priority Date/Time Associated Diagnosis Comments [facility] EGD-COLONOSCOPY Routine 11/19/2020 11:40 AM EDT COLONOSCOPY-ENDO DEPT ONLY (ANESTHESIA) 11/19/2020 11:24 AM EDT Rectal bleeding Abdominal pain, RLQ (right lower quadrant) ESOPHAGOGASTRODUODENOSCOPY (ANESTHESIA) 11/19/2020 11:24 AM EDT Rectal bleeding Abdominal pain, RLQ (right lower quadrant) POCT URINE Routine 11/19/2020 10:55 AM EDT Preop testing documented in this encounter Results * [facility] EGD-COLONOSCOPY (11/19/2020 11:40 AM EDT) 11/19/2020 11:4 0 AM EDT Impressions [facility] - 11/19/2020 12:01 PM EDT Plan: - No findings to account for her symptoms. - Reports improvement in pain today after cleaning out for the colonoscopy. - Will start on Linzess 290 mcg. - Very tortuous colon. This section is an excerpt of the full report. Brett So MD GI PROCEDURE ORDERABLES Kim l Result Performing Organization Address [facility] Co de Phone Number [facility] [address] [place] [address] * POCT URINE (11/19/2020 10:55 AM EDT) Preg Test, Ur negative POS/NEG [facility] Lot Number [id number] [facility] Expiration Date 02-08-2022 [facility] SeriAl # [facility] Control Line Yes YES/NO [facility] 11/19/2020 10:5 5 AM EDT us Radha Shafer NP POINT OF CARE TEST OR DERABLES Final Result Performing Organization Address [facility] de Phone Number [facility] [address] [place] [address] documented in this encounter Visit Diagnoses Diagnosis Preop testing- Primary Preoperative examination, unspecified Rectal bleeding Hemorrhage of rectum and anus Abdominal pain, RLQ (right lower quadrant) Abdominal pain, right lower quadrant Rectal bleeding Hemorrhage of rectum and anus Abdominal pain, RLQ (right lower quadrant) Abdominal pain, right lower quadrant Rectal bleeding Hemorrhage of rectum and anus Abdominal pain, RLQ (right lower quadrant) Abdominal pain, right lower quadrant documented in this encounter Admitting Diagnoses Diagnosis Rectal bleeding Hemorrhage of rectum and anus Abdominal pain, RLQ (right lower quadrant) Abdominal pain, right lower quadrant documented in this encounter Administered Medications Inactive Administered Medications - up to 1 most recent administrations Medication Order MAR Action Action Date Dose Rate Site droperidoL (INAPSINE) injection 0.625 mg 0.625 mg, Intravenous, PRN, 2 doses, Starting on Tue11/19/20 at 1153, Until Tue11/19/20 at 1646, Nausea, Give second dose if nausea unrelieved in 10 minutes. May give total of two doses if needed., PACU lactated ringers infusion Intravenous, at 100 mL/hr, PREPROCEDURE CONTINUOUS, Starting on Tue11/18/20 at 0916, Until Tue11/19/20 at 1646, To be given in SDS/Pre-op Holding Area, Pre-op (Holding/SDS Meds) New Bag 11/19/2020 11:01 AM EDT 100 mL/hr documented in this encounter Discontinued Medications Medication Sig Discontinue Reason Start Date End Da te pantoprazole (PROTONIX) 40 mg Oral Tablet, Delayed Release (E.C.)Indications:PUD (peptic ulcer disease) Take 1 Tab by mouth daily. Removed During Admission Medication Review 10/31/2020 11/19/2020 sucralfate (CARAFATE) 1 gram Oral TabletIndications:PUD (peptic ulcer disease) Take 1 Tab by mouth 4 times daily. Removed During Admission Medication Review 10/31/2020 11/19/2020 documented as of this encounter Active and Recently Administered Medications Times are shown in EDT. PRN Medication Order 11/17/2020 11/18/2020 11/19/2020 droperidoL (INAPSINE) injection 0.625 mg 0.625 mg, Intravenous, PRN, 2 doses, Starting on Tue11/19/20 at 1153, Until Tue11/19/20 at 1646, Nausea, Give second dose if nausea unrelieved in 10 minutes. May give total of two doses if needed., PACU lactated ringers infusion Intravenous, at 100 mL/hr, PREPROCEDURE CONTINUOUS, Starting on Tue11/18/20 at 0916, Until Tue11/19/20 at 1646, To be given in SDS/Pre-op Holding Area, Pre-op (Holding/SDS Meds) 1101 (New Bag - Prov ider: Estela Marrero RN)1217 (Stopped - Provider: Bia Cross RN) documented in this encounter Orders Medications Ordered That Horace ht Not Have Been Administered Count Last Ordered Date First Ordered Date droperidoL (INAPSINE) injection 0.625 mg 1 11/19/2020 Discharge Count Last Ordered Date First Orde red Date DISCHARGE PATIENT 1 11/19/2020 documented in this encounter Care Teams News Reel Cameraman Relationship Specialty Start Date End Date Nehemias Barron MD [address] [place] [address] PCP - General 12/01/10 Easton Thompson MD [address] [place] [address] [address] [place] [address] Physician Obstetrics & Gynecology 01/29/14 Radha Wild APRN [address] [place] [address] Nurse Practitioner 11/04/15 documented as of this encounter
--- OUTSIDE RECORDS SUMMARY | 2024-03-07 05:04 | XMS_ITS | Encounter Summary ---
Author Organization [place] [address] Care Team Providers Care Mica Plate Layer Hand Name Role Phone Nehemias Barron MD Primary Care Provider [phone] Easton Thompson MD Unavailable [phone] Radha Wild APRN Unavailable [phone] Reason for Visit * Reason Onset Date Comments Medication Management 11/11/2020 Patient ca lling requesting something for pain Encounter Details Date Type Department Care Team (Late st Contact Info) Description 11/11/2020 Telephone SEP [facility] [address] [facility] [place] [address] Nehemias Barron MD [address] [place] [address] Medication Management (Patient calling requesting something for pain) Social History Tobacco Use Types Packs/Day Years [...] encounter Miscellaneous Notes * Telephone Encounter - Mallorie Gee MA - 11/11/2020 1:48 PM EDT Advised patient she would need to schedule an appointment * Telephone Encounter - Radha Reed - 11/11/2020 1:04 PM EDT Patient calling. Stated that her gastro scheduled her for a colonoscopy on 11/19/20. Patient stated that she is in severe pain and her gastro instructed her to call Dr. Barron for pain medication to treat prior to her procedure. Patient requesting something be sent to her pharmacy, [facility]. Please call patient and advise if able to accommodate. documented in this encounter Plan of Treatment [...] on filedocumented in this encounter Care Teams Mica Plate Layer Hand Relationship Specialty Start Date End Date Nehemias Barron MD [address] [place] [address] PCP - General 12/01/10 Easton Thompson MD [address] [place] [address] [address] [place] [address] Physician Obstetrics & Gynecology 01/29/14 Radha Wild APRN [address] [place] [address] Nurse Practitioner 11/04/15 documented as of this encounter
--- OUTSIDE RECORDS SUMMARY | 2024-03-07 05:04 | XMS_ITS | Encounter Summary ---
Author Organization [place] [address] Care Team Providers Care Scrap Worker Name Role Phone Nehemias Barron MD Primary Care Provider [phone] Easton Thompson MD Unavailable [phone] Radha Wild APRN Unavailable [phone] Reason for Referral * Ultrasound (Routine) - Closed Specialty Diagnoses / Procedures Referred By Eusebia t Referred To Contact Radiology Diagnoses Pelvic pain Procedures US PELVIS [place] TRANSVAGIN[place] [address] [place] [address] Phone: tel: fax: Referral ID Status Reason Start Date Expiration Date Visits Re quested Visits Authorized [id number] Closed 12/25/2020 12/25/2021 1 1 Reason for Visit * Reason Comments Gynecologic Exam RIGHT SIDE PAIN SHOO TING TO HER BACK * Consultation (Routine) - Closed Specialty Diagnoses / Procedures Referred By Eusebia briceno Referred To Contact Obstetrics and Gynecology Diagnoses Right ovarian cyst Nehemias Barron MD [address] [place] [address] Phone: tel: fax: [facility] [place] [address] [place] [address] [address] [place] [address] Phone: tel: fax: Referral ID Status Reason Start Date Expiration Date Visits Re quested Visits Authorized [id number] Closed 12/11/2020 12/11/2021 99 99 Encounter Details Date Type Department Care Team (Late st Contact Info) Description 12/25/2020 3:10 PM EDT Office Visit [facility] [address] [place] [address] Sabine Chan MD [address] [place] [address] Pelvic pain (Primary Dx); Menorrhagia with regular cycle; Dysmenorrhea; History of abnormal cervical Pap smear; Encounter for Papanicolaou smear for cervical cancer screening Social History Tobacco Use Types Packs/Day Years [...] Sign Reading Time Taken Comments Blood Pressure 104/72 12/25/2020 3:14 PM EDT Pulse - - Temperature - - Respiratory Rate - - Oxygen Saturation - - Inhaled Oxygen Concentration - - Weight 59.4 kg (131 lb) 12/25/2020 3:14 PM EDT Height - - Body Mass Index 21.8 11/19/2020 10:43 AM EDT documented in this [...] EDAnel Shipman RMA documented in this encounter Progress Notes * Sabine Chan MD - 12/25/2020 3:10 PM EDT Subjective Subjective: Patient ID: Bonny Olivares is a 30 y.o. female. Chief Complaint Patient presents with ??? Gynecologic Exam RIGHT SIDE PAIN SHOOTING TO HER BACK Here today for pelvic pain - right sided. Pain has been present on and off since April. States that she experienced a SAB in April which has resulted in increase flow and pain with menses. Patient has a history of Nexplanon (removed last year). Patient denies pain when nexplanon in place. Only had a menses for the first month then amenorrhea. Prior to Nexplanon used OCPs but got x 2 while on it. Tried IUD and Depo previously with side effects. Discussed potential need for hormonal suppression. Denies any new sexual partners or concern for STI. Patients past medical, family and social histories were reviewed and updated. There were no changesexcept as noted. Review of Systems All other systems reviewed and are negative. Objective Objective: Vitals: 12/25/20 1514 BP: 104/72 Weight: 131 lb (59.4 kg) Body mass index is 21.8 kg/m??. Physical Exam Vitals reviewed. Exam conducted with a cutter grinder operator present. Constitutional: Appearance: Normal appearance. Cardiovascular: Rate and Rhythm: Normal rate. Pulmonary: Effort: Pulmonary effort is normal. Abdominal: General: Abdomen is flat. Palpations: Abdomen is soft. There is no mass. Tenderness: There is no abdominal tenderness. There is no guarding or rebound. Genitourinary: General: Normal vulva. Exam position: Lithotomy position. Vagina: Normal. Cervix: Normal. Uterus: Normal. Adnexa: Right: Tenderness present. No mass or fullness. Left: Tenderness present. No mass or fullness. Musculoskeletal: General: Normal range of motion. Skin: General: Skin is dry. Neurological: General: No focal deficit present. Mental Status: She is alert and oriented to person, place, and time. Psychiatric: Mood and Affect: Mood normal. Behavior: Behavior normal. Thought Content: Thought content normal. Judgment: Judgment normal. Assessment and Plan: Bonny was seen today for gynecologic exam. Diagnoses and all orders for this visit: Pelvic pain - US PELVIS AND TRANSVAGINAL NON OB COMPLETE; Future Menorrhagia with regular cycle Dysmenorrhea History of abnormal cervical Pap smear - [facility] SKIVER UPPERS OR LININGS CYTOLOGY ORDER; Future Encounter for Papanicolaou smear for cervical cancer screening - [facility] SKIVER UPPERS OR LININGS CYTOLOGY ORDER; Future Return if symptoms worsen or fail to improve. documented in this encounter Plan of Treatment [...] Procedure Name Priority Date/Time Associated Diagnosis Comments SKIVER UPPERS OR LININGS CYTOLOGY REQUEST (PAP ONLY) Routine 12/25/2020 3:47 PM EDT History of abnormal cervical Pap smear Encounter for Papanicolaou smear for cervical cancer screening [facility] SKIVER UPPERS OR LININGS CYTOLOGY ORDER Routine 12/25/2020 3:47 PM EDT History of abnormal cervical Pap smear Encounter for Papanicolaou smear for cervical cancer screening documented in this encounter Results * US [...] PM ?? CLINICAL HISTORY: ??R10.2-Pelvic and perineal [id number]-CM. COMPARISON: ??CT abdomen 10/31/2020 PROCEDURE COMMENTS: Sonographic evaluation of the pelvis per ordered protocol with sales representative womens health images and tech notes for sent for [...] 4:49 PM CLINICAL HISTORY: R10.2-Pelvic and perineal [id number]-[id number]-20-CM. COMPARISON: CT abdomen 10/31/2020 PROCEDURE COMMENTS: Sonographic evaluation of the pelvis per orderedprotocol with sales representative womens health images and tech notes for sent for [...] please contactthe office of the ordering clinician. Sabine Chan MD [facility] ORDERABLES Final Result * SKIVER UPPERS OR LININGS CYTOLOGY REQUEST (PAP ONLY) (12/25/2020 3:47 PM EDT) CASE REPORT Gynecologic Cytology Report ? Case: [id number] ? Authorizing Provider: ??Sabine Chan MD ? Collected: ? 12/25/2020 1547 ? Ordering Location: ? [facility] ?Received: ?12/25/2020 1547 ? First Screen: ?Petar Richards, ? CT ? Rescreen: ?Luz Aguilera CT ? Specimen: ?LIQUID-BASED PAP - CERVICAL/ENDOCERV ICAL, Cervix, Endocervical ? 12/29/2020 12:41 PM EDT [facility] PAP FINAL DIAGNOSIS Negative for intraepithelial lesion or malignancy 12/29/2020 12:41 PM EDT [facility] OSCOPIC DESCRIPTION Microscopic examination is performed and the findings corroborate the diagnosis. 12/29/2020 12:41 PM EDT [facility] PAP SMEAR ADEQUACY Satisfactory for evaluation 12/29/2020 12:41 PM EDT [facility] PAP ORGANISMS NOTED Abundant bacteria present. 12/29/2020 12:41 PM EDT [facility] ENDOCERVICAL T-ZONE Transformation zone present 12/29/2020 12:41 PM EDT [facility] EMBEDDED IMAGES 12:41 PM EDT [facility] PAP DISCLAIMER The Pap Smear is a screening test that aids in the detection of cervical cancer and cancer precursors. Both false positive and false negative results can occur. The test should be used at regular intervals, and positive results should be confirmed before definitive therapy. Processed using the ThinPrep Transmission Assembler Automated cytology screening device ([employer]). 12/29/2020 12:41 PM EDT [facility] Thin Prep ENDOCERVICAL STRUCTURE / Unknown 12/25/2020 3:47 PM EDT 12/25/2020 3:47 PM EDT us Sabine Chan MD CYTOLOGY ORDERABLES Final Resul t [facility] [address] [place] [id number] documented in this encounter Visit Diagnoses Diagnosis Pelvic pain- Primary Unspecified symptom associated with female genital organs Menorrhagia with regular cycle Excessive or frequent menstruation Dysmenorrhea History of abnormal cervical Pap smear Personal history of other genital system and obstetric disorders Encounter for Papanicolaou smear for cervical cancer screening Pelvic pain Unspecified symptom associated with female genital organs documented in this encounter Care Teams Scrap Worker Relationship Specialty Start Date End Date Nehemias Barron MD [address] [place] [address] PCP - General 12/01/10 Easton Thompson MD [address] [place] [address] [address] [place] [address] Physician Obstetrics & Gynecology 01/29/14 Radha Wild APRN [address] [place] [address] Nurse Practitioner 11/04/15 documented as of this encounter
--- OUTSIDE RECORDS SUMMARY | 2024-03-07 05:04 | XMS_ITS | Encounter Summary ---
Author Organization [place] [address] Care Team Providers Care Dispenser Operator Name Role Phone Nehemias Barron MD Primary Care Provider [phone] Easton Thompson MD Unavailable [phone] Radha Wild APRN Unavailable [phone] Encounter Details Date Type Department Care Team (Latest Contact Info) Description 11/07/2020 10:45 AM EDT - 11/07/2020 11:59 PM EDT Hospital Encounter [facility] [address] [place] [address] Chronic hepatitis C without hepatic coma (HCC) [...] Name Priority Date/Time Associated Diagnosis Comments HEPATITIS A ANTIBODY IGM ACUTE Routine 11/07/2020 10:42 AM EDT Chronic hepatitis C without hepatic coma (HCC) HCV GENOTYPE BY PCR AND SEQUENCING -REF LAB Routine 11/07/2020 10:42 AM EDT Chronic hepatitis C without hepatic coma (HCC) HEPATITIS B SURFACE ANTIBODY Routine 11/07/2020 10:42 AM EDT Chronic hepatitis C without hepatic coma (HCC) HEPATITIS B SURFACE ANTIGEN Routine 11/07/2020 10:42 AM EDT Chronic hepatitis C without hepatic coma (HCC) HEPATIC FUNCTION PANEL Routine 11/07/2020 10:42 AM EDT Chronic hepatitis C without hepatic coma (HCC) documented in this encounter Results * HEPATITIS B SURFACE ANTIGEN (11/07/2020 10:42 AM EDT) Hep Bs Ag Non-Reactiv e Non-Reacti ve 11/07/2020 3:37 PM EDT [facility] Blood VENOUS BLOOD / Unknown Venipuncture / Unknown 11/07/2020 10:42 AM EDT 11/07/2020 10:42 AM EDT us Brett So MD CHEMISTRY ORDERABLES Final R esult [facility] [address] [facility] , [address] [place] [id number] * HEPATITIS B SURFACE ANTIBODY (11/07/2020 10:42 AM EDT) Hep Bs Ab <3.08 mIU/mL 11/07/2020 3:37 PM EDT [facility] Comment: < 8.00 mIU/mL ? - NON REACTIVE (Not immune to HBV infection) 8.0 - 11.99 mIU/mL ?- GRAYZONE (Immune status should be further assessed by considering other factors such as clinical status, follow up testing, associated risk factors, and the use of additional diagnostic information.) >= 12.00 mIU/mL ? - REACTIVE (Immune to HBV infection.) Blood VENOUS BLOOD / Unknown Venipuncture / Unknown 11/07/2020 10:42 AM EDT 11/07/2020 10:42 AM EDT Brett So MD IMMUNOLOGY ORDERABLES Final Result Performing Organization Address [facility] Co de Phone Number [facility] [address] [facility] , [place] [address] * HEPATIC FUNCTION PANEL (11/07/2020 10:42 AM EDT) Total Protein 7.3 6.4 - 8.3 gm/dL 11/07/2020 2:50 PM EDT [facility] Albumin 4.4 3.5 - 5.2 gm/dL 11/07/2020 2:50 PM EDT [facility] Bili Direct <0.2 0.0 - 0.3 mg/dL 11/07/2020 2:50 PM EDT [facility] Bili Total 0.5 0.1 - 1.3 mg/dL 11/07/2020 2:50 PM EDT [facility] AST 19 <=40 U/L 11/07/2020 2:50 PM EDT [facility] ALT 20 <=41 U/L 11/07/2020 2:50 PM EDT [facility] Alk Phos 65 36 - 123 U/L 11/07/2020 2:50 PM EDT [facility] Blood VENOUS BLOOD / Unknown Venipuncture / Unknown 11/07/2020 10:42 AM EDT 11/07/2020 10:42 AM EDT us Brett So MD CHEMISTRY ORDERABLES Final R esult Performing Organization Address City/[facility]/ZIP Co de Phone Number [facility] [address] [facility] , [place] [address] * HEPATITIS A ANTIBODY IGM ACUTE (11/07/2020 10:42 AM EDT) Hep A IgM Non-Reactiv e Non-Reacti ve 11/07/2020 3:37 PM EDT [facility] Blood VENOUS BLOOD / Unknown Venipuncture / Unknown 11/07/2020 10:42 AM EDT 11/07/2020 10:42 AM EDT Brett So MD IMMUNOLOGY ORDERABLES Final Result [facility] [address] [facility] [address], [place] [address] * HCV GENOTYPE BY PCR AND SEQUENCING -REF LAB (11/07/2020 10:42 AM EDT) Pathologist [facility] HCV Genotyping by PCR & Sequen 3a 11/11/2020 10:50 AM EDT [facility] Comment: INTERPRETIVE INFORMATION: ??Hepatitis C Genotyping Hepatitis C Viral RNA is tested using reverse green meat grader polymerase chain reaction (RT-PCR) to amplify a specific portion of the 5' untranslated region (5' UTR) of the viral genome. The amplified nucleic acid is sequenced bi-directionally using dye-terminator chemistry ([employer]). Sequencing data is compared to a database of characterized sequences. Isolates of hepatitis C virus are grouped into six major genotypes (1-6). These genotypes are subtyped according to sequence characteristics. Due to high conservation of the 5' un-translated region of the HCV genome, this test has limitations in differentiating subtype 1a from 1b. Therefore, these subtypes will be reported as 1a or 1b. In rare instances, Type 6 virus may be misclassified as Type 1. This test was developed and its performance characteristics determined by [facility]. It has not been cleared or approved by the US Food and Drug Administration. This test was performed in a CLIA certified laboratory and is intended for clinical purposes. Performed By: [facility] [address] [place] [address] 7Th Grade Teacher: Prabha Lovell MD Blood VENOUS BLOOD / Unknown Venipuncture / Unknown 11/07/2020 10:42 AM EDT 11/07/2020 10:42 AM EDT Brett So MD IMMUNOLOGY ORDERABLES Final Result Performing Organization Address City/[facility]/ZIP Co de Phone Number [facility] [address] [place] [address] documented in this encounter Visit Diagnoses Diagnosis Chronic hepatitis C without hepatic coma (HCC) documented in this encounter Care Teams Dispenser Operator Relationship Specialty Start Date End Date Nehemias Barron MD [address] [place] [address] PCP - General 12/01/10 Easton Thompson MD [address] [place] [address] [address] [place] [address] Physician Obstetrics & Gynecology 01/29/14 Radha Wild APRN [address] [place] [address] Nurse Practitioner 11/04/15 documented as of this encounter
--- OUTSIDE RECORDS SUMMARY | 2024-03-07 05:04 | XMS_ITS | Encounter Summary ---
Author Organization [facility] [place] [address] Care Team Providers Care Metallurgist Process Name Role Phone Nehemias Barron MD Primary Care Provider [phone] Easton Thompson MD Unavailable [phone] Radha Wild ROCKET ASSEMBLY OPERATOR Unavailable [phone] Encounter Details Date Type Department Care Team (Latest Contact Info) Description 11/11/2020 Travel Social History Tobacco Use Types Packs/Day [...] on filedocumented in this encounter Care Teams Metallurgist Process Relationship Specialty Start Date End Date Nehemias Barron MD [address] [place] [address] PCP - General 12/01/10 Easton Thompson MD [address] [place] [address] [address] [place] [address] Physician Obstetrics & Gynecology 01/29/14 Radha Wild APRN [address] [place] [address] Nurse Practitioner 11/04/15 documented as of this encounter
--- OUTSIDE RECORDS SUMMARY | 2024-03-07 05:04 | XMS_ITS | Encounter Summary ---
Author Organization [place] [address] Care Team Providers Care Doll Wig Maker Rooted Hair Name Role Phone Nehemias Barron MD Primary Care Provider [phone] Easton Thompson MD Unavailable [phone] Radha Wild APRN Unavailable [phone] Reason for Visit * Auth/Cert/Inpt Specialty Diagnoses / Procedures Referred By Contac t Referred To Contact Diagnoses Rectal bleeding Abdominal pain, RLQ (right lower quadrant) Rectal bleeding [K62.5] Abdominal pain, RLQ (right lower quadrant) [R10.31] Procedures MS COLONOSCOPY FLX DX W/COLLJ SPEC WHEN PFRMD MS EGD TRANSORAL BIOPSY SINGLE/MULTIPLE Esophagogastroduodenoscopy with possible biopsy, polypectomy, banding, brushing, control of bleeding and/or dilation. Colonoscopy with possible biopsy, polypectomy, and/or control of bleeding Referral ID Status Reason Start Date Expiration Date Visits Re quested Visits Authorized [id number] 1 1 Encounter Details Date Type Department Care Team (Latest Contact Info) Description 11/19/2020 10:12 AM EDT - 11/19/2020 12:46 PM EDT Hospital Encounter [facility] [address] [place] [address] Brett So MD [address] [place] [address] Preop testing (Primary Dx); Rectal bleeding; Abdominal pain, RLQ (right lower [...] Assessment Author No 10/27/2020 3:29 PM EDT Hope , Anel Shannan, RMA * Does this person have difficulty dressing or bathing? Answer Date of Assessment Author No 10/27/2020 3:29 PM EDT Anel Hope RMRigo * Because of a physical, mental or emotional condition, does this person have difficulty doing errands alone such as visiting a doctor's office or shopping? Answer Date of Assessment Author No 10/27/2020 3:29 PM EDT Anel Hope DENILSON documented as of this encounter Mental Status * Because of a physical, mental or emotional condition, does this person have serious difficulty concentrating, remembering or making decisions? Answer Entry Date Author No 10/27/2020 3:29 PM EDT Anel Hope DENILSON documented in this encounter Discharge Instructions * Discharge Instructions* Bia Cross RN - 11/19/2020 12:24 PM EDT [facility] Discharge Instructions - Following Endoscopy 1. [...] boyfriend ADDITIONAL INSTRUCTIONS: Call Dr So at [phone] if the following occurs: Colonoscopy: Severe abdominal [...] of Discharge Medication Instruction Sheet Given +++++++++++++++++++++++++++++++++++++++++++++++++++++++++++++++++++ [facility] Discharge Instructions - Following Anesthesia We [...] our office at . [facility]! [facility] +++++++++++++++++++++++++++++++++++++++++++++++++++++++++++++++++++ documented in this encounter Medications [...] by mouth daily. 30 Capsule 2 11/19/2020 12/01/202 1 documented in this encounter Discharge Disposition Disposition Code Departure Means Destination Home or Self Half-Way documented in this encounter Progress Notes * [...] with the patient or their legally authorized service representative. The patient's pre-procedure physical assessment indicates [...] So MD - 11/11/2020 12:20 PM EDT [facility] Gastroenterology Consult Note Primary Care Physician: [...] the pain is essentially persistent and there /. The pain still worsens with any p.o. [...] MISSCARRIAGE ; Surgeon: Kash Tabares MD; Location: [facility]; Service: Gynecology ??? LEEP N/A 06/27/2013 LOOP EXCISION PROCEDURE (LEEP); Surgeon: Sachin Castellanos MD; Location: [facility]; Service: Gynecology ??? SKIN [...] file Gets together: Not on file Attends sabianist service: Not on file Active member of [...] 2:52 PM CLINICAL HISTORY: R10.31-Right lower quadrant xqgp-BTY-86-CM R10.9-Unspecified abdominal gzmw-PWD-97-CM. COMPARISON: None. PROCEDURE COMMENTS: Multidetector CT examination [...] were reviewed in the medical chart and [facility] and summarized in the HPI. Assessment/Plan 1. [...] in consultation This note was generated by [employer] Voice Recognition technology. It has been reviewed by the undersigned, however, may still contain unintended errors. Brett So MD [facility] [phone] documented in this encounter Nursing Notes * [...] or alcohol 24 hours prior to procedure. Business Process Engineer ??? On the day of procedure, it is important to have a Business Process Engineer, someone who is 18 years or older, [...] a Living Will and Durable Power of Assistant Associate Professor for Healthcare, please bring a copy. ??? If having procedure at the hospital and you wear CPAP or BIPAP, please bring your mask and the machine settings (not the actual machine) with you to the hospital on the day of your procedure. [facility] [...] excellent experience while you are here. Endoscopy [facility] at [phone] Physician Specialty Services Entrance 3A, check in at medical front desk coordinator, [address] [place] [address] documented in this encounter Plan of Treatment [...] EDT) 11/19/2020 11:4 0 AM EDT Impressions [facility] - 11/19/2020 12:01 PM EDT Plan: - No findings to account for her symptoms. - Reports improvement in pain today after cleaning out for the colonoscopy. - Will start on Linzess 290 mcg. - Very tortuous colon. This section is an excerpt of the full report. us Brett So MD GI PROCEDURE ORDERABLES Kim l Result Performing Organization Address City/[facility]/ZIP Co de Phone Number [facility] [address] [place] [address] * POCT URINE (11/19/2020 10:55 AM EDT) Preg Test, Ur negative POS/NEG [facility] Lot Number [id number] [facility] Expiration Date 02-08-2022 [facility] SeriAl # [facility] Control Line Yes YES/NO [facility] 11/19/2020 10:5 5 AM EDT us Radha Shafer NP POINT OF CARE TEST OR DERABLES Final Result Performing Organization Address [facility] Co de Phone Number [facility] [address] [place] [address] documented in this encounter Visit Diagnoses Diagnosis [...] 11/19/2020 documented in this encounter Care Teams Doll Wig Maker Rooted Hair Relationship Specialty Start Date End Date Nehemias Barron MD [address] [place] [address] PCP - General 12/01/10 Easton Thompson MD [address] [place] [address] [address] [place] [address] Physician Obstetrics & Gynecology 01/29/14 Radha Wild APRN [address] [place] [address] Nurse Practitioner 11/04/15 documented as of this encounter
--- OUTSIDE RECORDS SUMMARY | 2024-03-07 05:04 | XMS_ITS | Encounter Summary ---
Author Organization [place] [address] Care Team Providers Care Publicity Agent Name Role Phone Nehemias Barron MD Primary Care Provider [phone] Easton Thompson MD Unavailable [phone] Radha Wild APRN Unavailable [phone] Reason for Visit * Auth/Cert/Inpt Specialty Diagnoses [...] Expiration Date Visits Re quested Visits Authorized [id number] 1 1 Encounter Details Date Type Department Care Team (Late st Contact Info) Description 11/19/2020 11:24 AM EDT Anesthesia Event [facility] ENDOSCOPY [address] [facility] [address] Zara Qureshi MD [address] [place] [address] [address] [place] [address] Radha Queen, JACOBY [address] [place] [address] Anesthesia Record Procedure Summary Procedure Name Responsible Anesthesiologist Anesthesia Start Time Anesthesia Stop Time ESOPHAGOGASTRODUODENOSCOPY (ANESTHESIA) Zara Qureshi MD 11/19/20 1124 11/19/20 1149 Events Date Time Event Comment 11/19/2020 1048 1117 AN Equip Check 1124 An Start 1124 An Start Data 1125 Immediate Pre Anesthetic Ass es 1127 Anesthesia Ready 1131 Time out 1131 Incision 1132 an surekha now Bed turned for lower 1136 an surekha now Colonoscopy sta rt 1148 an stop data 1149 Anesthesia Provider Handoff 1149 An Stop 1149 Handoff I completed my SBAR handoff to the receiving nurse which has included the followin. Identification of the patient, family, or patient surrogate 2. Identification of the responsible practitioner 3. Pertinent medical history 4. Surgical procedure and reason for procedure 5. Intraoperative anesthetic management 6. All current lines, drains and respiratory support. 7. Outstanding follow up orders (X-rays, consults etc) 8. Expectations/Plans for the early post-procedure period 9. Opportunity for questions and acknowledgement of understanding from the receiving PACU/ICU logistics team leader Meds Name Total propofol (DIPRIVAN) injection 100 mg propofol (DIPRIVAN) infusion 10 mg/mL 19 5,360 mcg lidocaine injection 1% 50 mg lactated ringers infusion 0 mL * Agents Name O2 * Blood No blood administrations on file. Lines, Drains, and Airways Type Details Placement Removal Peripheral IV 11/19/20; 1100; 22; Right; Wrist; OSCAR Ga; 1; 11/19/20; 1217; Therapy completed; Catheter intact 11/19/20 1100 by Estela Marrero, OSCAR 11/19/20 1217 by Bia Cross, OSCAR Airway Device: Nasal Cannul a Salter; Placement Date: 11/19/20; Placement Time: 113 (created via procedure documentation); Removal Date: 11/19/20; Removal Time: 16411/19/20 1137 by Zara Qureshi MD 11/19/20 1646 by Discharge Provider, Automatic documented in this encounter Social History Tobacco [...] Anel Dao RMA documented in this encounter Procedure Notes * Zara Qureshi MD - 11/19/2020 11:37 AM EDTAssociated Order(s): Intraop Airway Placement Intraop Airway Placement: Airway type: Nasal cannula salter documented in this encounter OR Notes * Anesthesia Postprocedure Evaluation - Zara Qureshi MD - 11/19/2020 12:11 PM EDT Post-Anesthesia Evaluation Note Patient Name: Bonny Olivares Patient Date: November 19, 2020 Post-Anesthesia EvaluationPatient Location: ENDO Post op vitals: stable Nausea controlled: yes Level of consciousness: awake, alert and oriented Post anesthesia pain: adequate analgesia Long acting local anesthetic: n/a Airway patency: patent Respiratory status: room air Cardiovascular status: stable and BP within 20% of baseline Hydration status: euvolemic Temperature: Normothermia Perioperative complications: NONE Vitals Value Taken Time BP 96/52 11/19/20 1205 Resp 16 11/19/20 1205 SpO2 100 % 11/19/20 1205 Temp 36.9 ??C (98.4 ??F) 11/19/20 1151 Pulse 72 11/19/20 1205 * Anesthesia Preprocedure Evaluation - Zara Qureshi MD - 11/13/2020 8:23 AM EDT Images from the original note were not included. Pre-Anesthesia Evaluation Note Patient Name: Bonny Olivares Sex: female Patient : 1990 Age: 30 y.o. Patient Date: November 13, 2020 Procedure(s): Esophagogastroduodenoscopy with possible biopsy, polypectomy, banding, brushing, control of bleeding and/or dilation. Colonoscopy with possible biopsy, polypectomy, and/or control of bleeding Anesthesia Evaluation Previous anesthesia. No history of anesthetic complications (motion sickness): Airway Mallampati: I TM distance: >3 FB Neck ROM: full No increased risk of difficult airway Dental Dental exam findings: poor Pulmonary (+) Bronchitis: Chronic History of tobacco use: current Physical exam: Comments: Clear to auscultation Cardiovascular - negative ROS Physical exam: Rhythm: regular Rate: normal Neuro/Psych (+) Seizures: Headaches: Psychiatric history: Depression GI/Hepatic/Renal (+) GERD/PUD: Hepatitis: C Endo/Other Comments: Psoriasis Melanoma (+)Arthritis: Rheumatoid Recreational drug use: (h/o IVDA)Cocaine PATIENT ACCESS REPRESENTATIVE Additional Pre-evaluation comments upt neg Body mass index is 22.3 kg/m??. Anesthesia Plan ASA 2 Last solid intake: The patient has not eaten within the last 8 hours. Last clear liquid intake: The patient has not had clear liquids within the last 2 hours. Last tobacco use: The patient has not used tobacco today. Anesthesia Plan: MAC Induction: intravenous Monitors: STD Informed consent Anesthetic plan and risks discussed with: patient. Chart Reviewed and patient examined documented in this encounter Plan of Treatment [...] Procedure Name Priority Date/Time Associated Diagnosis Comments INTRAOP AIRWAY PLACEMENT Routine 11/19/2020 11:37 AM EDT documented in this encounter Results * INTRAOP AIRWAY PLACEMENT (11/19/2020 11:37 AM EDT) Narrative [facility] - 11/19/2020 11:37 AM EDT Zara Qureshi MD ? 11/19/2020 11:37 AM Intraop Airway Placement: ??Airway type: ??Nasal cannula salter us Zara Qureshi MD MD ANESTHESIA Final Result [facility] [address] [place] [address] documented in this encounter Visit Diagnoses Not on filedocumented in this encounter Administered Medications Inactive Administered Medications - up to 1 most recent administrations Medication Order MAR Action Action Date Dose Rate Site lidocaine 1% 10 mg/mL (1 %) injection Intravenous, PRN (Anesthesia), Starting on Tue11/19/20 at 1124, Until Tue11/19/20 at 1149, Anesthesia Intra-op Given 11/19/2020 11:24 AM EDT 50 mg propofol (DIPRIVAN) infusion 10 mg/mL Intravenous, CONTINUOUS PRN, Starting on Tue11/19/20 at 1124, Until Tue11/19/20 at 1149, Anesthesia Intra-op Rate/Dose Change 11/19/2020 11:38 AM EDT 150 mcg/kg/min 53.28 mL/hr propofoL (DIPRIVAN) injection Intravenous, PRN (Anesthesia), Starting on Tue11/19/20 at 1124, Until Tue11/19/20 at 1149, Anesthesia Intra-op Given 11/19/2020 11:38 AM EDT 20 mg documented in this encounter Care Teams Publicity Agent Relationship Specialty Start Date End Date Nehemias Barron MD [address] [place] [id number] PCP - General 12/01/10 Easton Thompson MD [address] [place] [address] [address] [place] [address] Physician Obstetrics & Gynecology 01/29/14 Radha Wild APRN [address] [place] [address] Nurse Practitioner 11/04/15 documented as of this encounter
--- OUTSIDE RECORDS SUMMARY | 2024-03-07 05:04 | XMS_ITS | Encounter Summary ---
Author Organization [place] [address] Care Team Providers Care Conche Loader And Unloader Name Role Phone Nehemias Barron MD Primary Care Provider [phone] Easton Thompson MD Unavailable [phone] Radha Wild APRN Unavailable [phone] Reason for Visit * Reason Onset Date Comments Results 12/29/2020 VIKOR SWAB Encounter Details Date Type Department Care Team (Late st Contact Info) Description 12/29/2020 Telephone [facility] [address] [address] Sabine Chan MD [address] [place], [place] [id number] Results (VIKOR SWAB) Social History Tobacco Use Types Packs/Day Years [...] encounter Miscellaneous Notes * Telephone Encounter - Charu Tolentino RN - 01/14/2021 10:44 AM EDT Rx and MyChart msg sent * Telephone Encounter - Savannah Foreman RN - 12/29/2020 11:56 AM EDT Vikor results: Gardnerella vaginalis Atopobium vaginae BVAB2 Uncultured Megasphera 1 Lactobacillus iners prevotella bivia Lactobacillus crispatus HSV2 0% Treatment: Metronidazole 500mg po BID x 7 days or Metronidazole vaginal gel: 1 applicatorful vaginally once daily x 5 days. Called pt to verify if she would like po or vaginal tx. VM not set up. * Telephone Encounter - Chica Allen ABR-OE - 12/29/2020 8:18 AM EDT Vikor Swab results received over fax. Please review online. Paper copy placed in Dr. Chan's bin in to sign off on. documented in this encounter Plan of Treatment [...] on filedocumented in this encounter Care Teams Conche Loader And Unloader Relationship Specialty Start Date End Date Nehemias Barron MD [address] [place] [address] PCP - General 12/01/10 Easton Thompson MD [address] [place] [address] [address] [place] [address] Physician Obstetrics & Gynecology 01/29/14 Radha Wild APRN [address] [place] [address] Nurse Practitioner 11/04/15 documented as of this encounter
--- OUTSIDE RECORDS SUMMARY | 2024-03-07 05:04 | XMS_ITS | Encounter Summary ---
Author Organization [facility] [place] [address] Care Team Providers Care Utility Porter Name Role Phone Nehemias Barron MD Primary Care Provider Easton Thompson MD Unavailable [phone] Radha Wild INPATIENT CARE MANAGER RN Unavailable [phone] Encounter Details Date Type Department Care Team (Latest Contact Info) Description 01/01/2021 Travel Social History Tobacco Use Types Packs/Day [...] on filedocumented in this encounter Care Teams Utility Porter Relationship Specialty Start Date End Date Nehemias Barron MD [address] [place] [address] PCP - General 12/01/10 Easton Thompson MD [address] [place] [address] [address] [place] [address] Physician Obstetrics & Gynecology 01/29/14 Radha Wild APRN [address] [place] [address] Nurse Practitioner 11/04/15 documented as of this encounter
--- OUTSIDE RECORDS SUMMARY | 2024-03-07 05:04 | XMS_ITS | Encounter Summary ---
Author Organization [place] [address] Care Team Providers Care Sales Lead Name Role Phone Nehemias Barron MD Primary Care Provider [phone] Easton Thompson MD Unavailable [phone] Radha Wild APRN Unavailable [phone] Reason for Visit * Reason Comments Pharmacy Hep C Management Encounter Details Date Type Department Care Team (Latest Contact Info) Description 01/30/2021 Specialty Pharmacy [facility] [address] [place] [address] Zaria Castellano CPhT Pharmacy Hep C Management Social History [...] No 10/27/2020 3:29 PM EDT Anel Hope, MALICKA * Does this person have serious difficulty [...] 3:29 PM EDT Anel Hope RMRigo documented as of this encounter Mental Status * Because of a physical, mental or emotional condition, does this person have serious difficulty concentrating, remembering or making decisions? Answer Entry Date Author No 10/27/2020 3:29 PM EDT Anel Hope RMRigo documented in this encounter Progress Notes * Zaria Barlow CPhT - 01/30/2021 2:32 PM EDT [facility] 01/30/2021 2:32 PM Called and spoke to [facility] in [place], [place]. Rep stated that patient did have test done on 01/23 and it was negative. However, only documented in clinic notes, requested notes be sent to [facility] that way it is documented that it was negative. Zaria Barlow CPhT * Ritu Samaniego RPH - 01/30/2021 2:32 PM EDT [facility] 02/03/2021 2:46 PM Called and spoke with [facility]. Patient was seen for consult of nexplanon implant, but it will take 4-6 weeks before it is inserted. Patient has been prescribed Sprintec in the meantime. Will call patient to ensure that she has started Sprintec prior to sending prescription for Epclusa. 02/03/2021 2:50 PM No answer. Unable to leave voicemail. Will send [employer] message. Thank you for allowing me to participate in the care of this patient. Ritu Samaniego PharmD * Zaria Barlow CPhT - 01/30/2021 2:32 PM EDT [facility] 02/03/2021 4:11 PM Patient returning call stating that she is not on Sprintec she is taking Lanny atthis time as she is waiting for insurance approval for the implant. Will route to clinical pharmacist to make aware Zaria Barlow CPhT * Ritu Samaniego RPH - 01/30/2021 2:32 PM EDT [facility] 02/03/2021 4:40 PM Noted that patient is on hormonal contraceptive. Will send prescription for Epclusa from initial assessment note. Thank you for allowing me to participate in the care of this patient. Ritu Samaniego PharmD documented in this encounter Plan of [...] on filedocumented in this encounter Care Teams Sales Lead Relationship Specialty Start Date End Date Nehemias Barron MD [address] [place] [address] PCP - General 8/23/11 Easton Thompson MD [address] [place] [address] [address] [place] [address] Physician Obstetrics & Gynecology 01/29/14 Radha Wild APRN [address] [facility] [address] Nurse Practitioner 11/04/15 documented as of this encounter
--- OUTSIDE RECORDS SUMMARY | 2024-03-07 05:04 | XMS_ITS | Encounter Summary ---
Author Organization [facility] [address] Care Team Providers Care Farm Management Professor Name Role Phone Nehemias Barron MD Primary Care Provider [phone] Easton Thompson MD Unavailable [phone] Radha Wild ANALYST BUSINESS ANALYSIS Unavailable [phone] Encounter Details Date Type Department Care Team (Latest Contact Info) Description 11/19/2020 Travel Social History Tobacco Use Types Packs/Day [...] on filedocumented in this encounter Care Teams Farm Management Professor Relationship Specialty Start Date End Date Nehemias Barron MD [address] [place] [address] PCP - General 12/01/10 Easton Thompson MD [address] [place] [address] [address] [place] [address] Physician Obstetrics & Gynecology 01/29/14 Radha Wild APRN [address] [place] [address] Nurse Practitioner 11/04/15 documented as of this encounter
--- OUTSIDE RECORDS SUMMARY | 2024-03-07 05:04 | XMS_ITS | Encounter Summary ---
Author Organization [place] [address] Care Team Providers Care Locksmith Apprentice Name Role Phone Nehemias Barron MD Primary Care Provider [phone] Easton Thompson MD Unavailable [phone] Radha Wild APRN Unavailable [phone] Reason for Visit * Reason Comments Pre-Visit Encounter Encounter Details Date Type Department Care Team (Late st Contact Info) Description 01/01/2021 Specialty Pharmacy [facility] [address] [facility] [address] [place] [address] Radha Solorzano, Soliciting Freight Agent Pre-Visit Encounter Social History Tobacco Use Types Packs/Day Years [...] 10/27/2020 3:29 PM EDT Anel Hope, RMA documented in this encounter Progress Notes * Radha Solorzano, Soliciting Freight Agent - 01/01/2021 1:23 PM EDT Note opened to complete pre-visit encounter. documented in this encounter Plan of Treatment [...] on filedocumented in this encounter Care Teams Locksmith Apprentice Relationship Specialty Start Date End Date Nehemias Barron MD [address] [place] [address] PCP - General 12/01/10 Easton Thompson MD [address] [place] [address] [address] [place] [address] Physician Obstetrics & Gynecology 01/29/14 Radha Wild APRN [address] [place] [address] Nurse Practitioner 11/04/15 documented as of this encounter
--- OUTSIDE RECORDS SUMMARY | 2024-03-07 05:04 | XMS_ITS | Encounter Summary ---
Author [place] [address] Care Team Providers Care Recording Clerk Name Role Phone Nehemias Barron MD Primary Care Provider [phone] Easton Thompson MD Unavailable [phone] Radha Wild APRN Unavailable [phone] Reason for Visit * Reason Onset Date Comments Other 11/11/2020 Mag Cit Encounter Details Date Type Department Care Team (Late st Contact Info) Description 11/11/2020 Telephone [facility] [address] [place] [address] Brett So MD [address] [place] [address] Other (Mag Cit) Social History Tobacco Use Types Packs/Day Years [...] encounter Miscellaneous Notes * Telephone Encounter - Isacc Preston RMA - 11/11/2020 4:44 PM EDT Called pt and informed her mag citrate is bought otc about $1 bottle pt informed. * Telephone Encounter - Helen Snyder - 11/11/2020 1:54 PM EDT Colonoscopy scheduled today. Wants to have RX written for Mag Cit. Please cb to discuss if this is an option. documented in this encounter Plan of Treatment [...] on filedocumented in this encounter Care Teams Recording Clerk Relationship Specialty Start Date End Date Nehemias Barron MD [address] [place] [address] PCP - General 12/01/10 Easton Thompson MD [address] [place] [address] [address] [place] [address] Physician Obstetrics & Gynecology 01/29/14 Radha Wild APRN [address] [place] [address] Nurse Practitioner 11/04/15 documented as of this encounter
--- OUTSIDE RECORDS SUMMARY | 2024-03-07 05:04 | XMS_ITS | Encounter Summary ---
Author Organization [facility] [address] Care Team Providers Care Rubber Compounder Mixer Name Role Phone Nehemias Barron MD Primary Care Provider [phone] Easton Thompson MD Unavailable [phone] Radha Wild CARPET FLOOR LAYER APPRENTICE Unavailable [phone] Encounter Details Date Type Department Care Team (Latest Contact Info) Description 11/12/2020 Travel Social History Tobacco Use Types Packs/Day [...] have Coronavirus / COVID-19? No / Unsure 11/12/2020 1:52 PM EDT documented as of this encounter [...] on filedocumented in this encounter Care Teams Rubber Compounder Mixer Relationship Specialty Start Date End Date Nehemias Barron MD [address] [place] [address] PCP - General 12/01/10 Easton Thompson MD [address] [place] [address] [address] [place] [address] Physician Obstetrics & Gynecology 01/29/14 Radha Wild APRN [address] [place] [address] Nurse Practitioner 11/04/15 documented as of this encounter
--- OUTSIDE RECORDS SUMMARY | 2024-03-07 05:04 | XMS_ITS | Encounter Summary ---
Author Organization [place] [address] Care Team Providers Care Director Fixed Income Name Role Phone Nehemias Barron MD Primary Care Provider [phone] Easton Thompson MD Unavailable [phone] Radha Wild APRN Unavailable [phone] Reason for Visit * Reason Comments Pharmacy Hep C Management Encounter Details Date Type Department Care Team (Latest Contact Info) Description 11/12/[address] [facility] [address] [facility] [address] [place] [address] Zaria Castellano CPhT Pharmacy Hep [...] No 10/27/2020 3:29 PM EDT Anel Hope, RMRigo documented in this encounter Progress Notes * Zaria Barlow CPhT - 11/12/2020 10:24 AM EDT [facility] Referral received by Dr. So. Calling patient to schedule appointment. 11/12/2020@10:24 AM: Patient scheduled for 12/05/20 Zaria Barlow CPhT * Zaria Barlow CPhT - 11/12/2020 10:24 AM EDT [facility] Patient had a visit scheduled with the pharmacist on 12/05/20; however, the patient did not show. Calling patient to reschedule. 12/08/2020@2:43 PM: No answer, no voicemail available. Zaria Barlow CPhT * Enrique Tenorio CPhT - 11/12/2020 10:24 AM EDT [facility] 12/10/2020 11:56 AM Called and was unable to LVM for PT to reschedule missed APPT Enrique Tenorio CPhT * Zaria Barlow CPhT - 11/12/2020 10:24 AM EDT [facility] Patient had a visit scheduled with the pharmacist on 12/05/20; however, the patient did not show. Calling patient to reschedule. 12/18/2020@2:40 PM: Patient stated she wasn't sure when she would be able to reschedule her appointment and will give us a call 3:19 PM Patient called back and rescheduled for 01/01/21 @ 3:30pm Zaria Barlow CPhT documented in this encounter Plan of Treatment [...] on filedocumented in this encounter Care Teams Director Fixed Income Relationship Specialty Start Date End Date Nehemias Barron MD [address] [facility] [address] PCP - General 12/01/10 Easton Thompson MD [address] [place] [address] [address] [place] [address] Physician Obstetrics & Gynecology 01/29/14 Radha Wild APRN [address] [place] [address] Nurse Practitioner 11/04/15 documented as of this encounter
--- OUTSIDE RECORDS SUMMARY | 2024-03-07 05:04 | XMS_ITS | Encounter Summary ---
Author Organization [place] [address] Care Team Providers Care Groundskeeping Yardman Name Role Phone Nehemias Barron MD Primary Care Provider [phone] Easton Thompson MD Unavailable [phone] Radha Wild APRN Unavailable [phone] Encounter Details Date Type Department Care Team (Late st Contact Info) Description 01/14/2021 Orders Only [facility] [address] [facility] [address] [place] [address] Charu Tolentino RN BV (bacterial vaginosis) (Primary Dx) Social History Tobacco Use Types [...] Assessment Author No 10/27/2020 3:29 PM EDAnel Shimpan RMA * Is the person blind or [...] Refills Last Filled Start Date End Date metroNIDAZOLE (FLAGYL) 500 mg Oral TabletIndications: BV (bacterial vaginosis) Take 1 Tablet by mouth 2 times daily for 7 days. 14 Tablet 01/14/2021 01/21/2021 documented in this encounter Plan of Treatment Not on file documented as of this encounter Goals Goal Patient Goal Type Associated Problems Recent Progress Patient-Stated? Author Maintain a healthy diet, exercise regularly and maintain an ideal body weight General No Shraddha Dolan LPN Stay Tobacco Free Lifestyle No Shraddha Dolan LPN documented as of this encounter Visit Diagnoses Diagnosis BV (bacterial vaginosis)- Primary Vaginitis and vulvovaginitis, unspecified documented in this encounter Care Teams Groundskeeping Yardman Relationship Specialty Start Date End Date Nehemias Barron MD [address] [place] [address] PCP - General 12/01/10 Easton Thompson MD [address] [place] [address] [address] [place] [address] Physician Obstetrics & Gynecology 01/29/14 Radha Wild APRN [address] [place] [address] Nurse Practitioner 11/04/15 documented as of this encounter
--- OUTSIDE RECORDS SUMMARY | 2024-03-07 05:05 | XMS_ITS | Encounter Summary ---
Author Organization [place] [address] Care Team Providers Care Labor Union Business Representative Name Role Phone Nehemias Barron MD Primary Care Provider [phone] Easton Thompson MD Unavailable [phone] Radha Wild APRN Unavailable [phone] Reason for Visit * Reason Onset Date Comments CM- Telephonic Outreach 08/06/2019 Encounter Details Date Type Department Care Team (Late st Contact Info) Description 08/06/2019 Patient Outreach [facility] [address] [place] [address] Robert Swift, WANT AD SUPERVISOR CM- Telephonic Outreach Social History Tobacco Use Types Packs/Day Years Used Date Smoking Tobacco: Every Day Cigarettes 1 10.5 Started: 04/11/2005; Last attempted to quit: 10/09/2015 Smokeless Tobacco: Never Alcohol Use Standard Drinks/Week Comments No 0 (1 standard drink = 0.6 oz pur e alcohol) PHQ-2 Answer Date Recorded PHQ-2 Score 6 08/30/2018 Sexually Active Control Partners Comments Yes Male [...] or suspected to have Coronavirus / COVID-19? Yes 08/03/2019 10:19 AM EDT documented as of this encounter Functional Status * Is the person deaf or does he/she have serious difficulty hearing? Answer Date of Assessment Author No 08/26/2018 9:33 AM EDT Mariana Greer CCMA * Is the person blind or does he/she have serious difficulty seeing even when wearing glasses? Answer Date of Assessment Author No 08/26/2018 9:33 AM EDT Mariana Greer CCMA * Does this person have serious difficulty walking or climbing stairs? Answer Date of Assessment Author No 08/26/2018 9:33 AM EDT Mariana Greer CCMA * Does this person have difficulty dressing or bathing? Answer Date of Assessment Author No 08/26/2018 9:33 AM EDT Mariana Greer CCMA * Because of a physical, mental or emotional condition, does this person have difficulty doing errands alone such as visiting a doctor's office or shopping? Answer Date of Assessment Author No 08/26/2018 9:33 AM EDT Mariana Greer CCMA documented as of this encounter Mental Status * Because of a physical, mental or emotional condition, does this person have serious difficulty concentrating, remembering or making decisions? Answer Entry Date Author No 08/26/2018 9:33 AM EDT Marinaa Greer CCMA documented in this encounter Progress Notes * Robert Swift, WANT AD SUPERVISOR - 08/07/2019 10:02 AM EDT Follow-up outreach for Respiratory Clinic/Urgent Care visit on: 08/05/19 Spoke with: Bonny Diagnosis: Current Symptoms: Cough, Wheezing, Fever Have your symptoms improved since your visit? No Were you prescribed a medication during your visit? No Were you able to get your prescription filled and picked up? n/a Do you have any questions about your medication(s) or dosing schedule? n/a Are you able to afford your medications? n/a Would you like to schedule a video visit with your provider? Appointment offered and patient declined Would you like to schedule a video visit with an [facility] Respiratory Therapist? Offered and declined Tell me about your discharge instructions, what did the provider want you to do?Self Quarantine Patient verbalized understanding. What other questions or concerns can I help you with? Patient denies any other questions or concerns. Socioeconomic questionnaire completed within the last 12 months. No new needs identified. MyChart already active and access confirmed with patient. Education/Referrals: Patient verbalizes understanding of self-quarantine recommendations. RT contact information given to patient. Patient was educated on when to contact their provider andRT. * Robert Swift, ISABELLA - 08/06/2019 4:13 PM EDT Attempted to reach patient regarding follow-up from Respiratory Clinic/Urgent Care visit. Patient did not answer and voicemail was not left per [facility]. documented in this encounter Plan of Treatment [...] Diagnoses Not on filedocumented in this encounter Additional Health Concerns Assessment Noted Time PHQ-9 Depression Total Score: 22 019 9:00 AM EDT PHQ-2 Depression Total Score: 6 08/27/19 19 9:00 AM EDT documented as of this encounter Care Teams Labor Union Business Representative Relationship Specialty Start Date End Date Nehemias Barron MD [address] [place] [address] PCP - General 12/01/10 Easton Thompson MD [address] [place] [address] [address] [place] [address] Physician Obstetrics & Gynecology 01/29/14 Radha Wild APRN [address] [place] [address] Nurse Practitioner 11/04/15 documented as of this encounter
--- OUTSIDE RECORDS SUMMARY | 2024-03-07 05:05 | XMS_ITS | Encounter Summary ---
Author Organization [place] [address] Care Team Providers Care Roadmaster Name Role Phone Nehemias Barron MD Primary Care Provider [phone] Easton Thompson MD Unavailable [phone] Radha Wild APRN Unavailable [phone] Reason for Referral * Nuclear Medicine (Routine) - Closed Specialty Diagnoses / Procedures Referred By Contac t Referred To Contact Radiology Diagnoses Abdominal pain, RLQ (right lower quadrant) Right flank pain Procedures [facility] HEPATOBILIARY [facility] Nehemias Barron MD [address] [place] [address] Phone: tel: fax: Referral ID Status Reason Start Date Expiration Date Visits Re quested Visits Authorized [id number] Closed 10/31/2020 10/31/2022 5 5 Encounter Details Date Type Department Care Team (Late st Contact Info) Description 10/31/2020 Orders Only [facility] [address] [place] [address] Anel Hope RMA Abdominal pain, RLQ (right lower quadrant) (Primary Dx); Right flank pain Social History Tobacco Use [...] have Coronavirus / COVID-19? No / Unsure 10/31/2020 1:03 PM EDT documented as of this [...] Type Priority Associated Diagnoses Orde r Schedule [facility] HEPATOBILIARY [facility] Imaging Routine Abdominal pain, RLQ (right lower quadrant) Right flank pain 1 Occurrences starting 10/31/2020 until 10/31/2022 documented as of this encounter Goals Goal Patient Goal Type Associated Problems Recent Progress Patient-Stated? Author Maintain a healthy diet, exercise regularly and maintain an ideal body weight General No Shraddha Dolan LPN Stay Tobacco Free Lifestyle No Shraddha Dolan LPN documented as of this encounter Visit Diagnoses Diagnosis Abdominal pain, RLQ (right lower quadrant)- Primary Abdominal pain, right lower quadrant Right flank pain Abdominal pain, unspecified site documented in this encounter Care Teams Roadmaster Relationship Specialty Start Date End Date Nehemias Barron MD [address] [place] [address] PCP - General 12/01/10 Easton Thompson MD [address] [place] [address] [address] [place] [address] Physician Obstetrics & Gynecology 01/29/14 Radha Wild APRN [address] [place] [address] Nurse Practitioner 11/04/15 documented as of this encounter
--- OUTSIDE RECORDS SUMMARY | 2024-03-07 05:05 | XMS_ITS | Encounter Summary ---
Author [place] [address] Care Team Providers Care Computer Programmer Analyst Name Role Phone Nehemias Barron MD Primary Care Provider [phone] Easton Thompson MD Unavailable [phone] Radha Wild APRN Unavailable [phone] Reason for Visit * Reason Onset Date Comments Medication Refill 04/28/2020 Encounter Details Date Type Department Care Team (Late st Contact Info) Description 04/28/2020 Refill [facility] [address] [facility] [address] Nehemias Barron MD [address] [place] [address] Medication Refill Social History Tobacco Use Types Packs/Day Years Used Date Smoking Tobacco: Every Day Cigarettes 1 10.5 Started: 04/11/2005; Last attempted to quit: 10/09/2015 Smokeless Tobacco: Never Alcohol Use Standard Drinks/Week Comments No 0 (1 standard drink = 0.6 oz pur e alcohol) PHQ-2 Answer Date Recorded PHQ-2 Score 6 08/30/2018 Sexually Active Control Partners Comments Yes Male Comments Yes Sex and Gender Information Value Date Recorded Sex Assigned at Not on file Legal Sex Female 7:55 PM EDT Gender Identity Not on file Sexual Orientation Not on file COVID-19 Exposure Response Date Recorded In the last month, have you been in contact with someone who was confirmed or suspected to have Coronavirus / COVID-19? No / Unsure 04/09/2020 12:41 PM EST documented as of this encounter Functional [...] Date Author No 08/26/2018 9:33 AM EDT Mariana Greer CCMA documented in this encounter Miscellaneous Notes * Telephone Encounter - Charu Laurent RN - 04/29/2020 9:59 AM EST Per chart review Patient prescribed 750mg Keppra 2 tabs BID by Casey Lieberman, this medication was filled on 01/01/2020 and 01/31/2020. Patient was prescribed 500mg tabs of Keppra 3 tabs BID daily on 04/09 for five days. Patient was tofollow up with PCP for further treatment Prescriptions verified and prescribed for seizure activity witnessed in October while in Rehab facility. Per chart review patient under care of OB for high risk until 04/09/2020. No longer undercare of OB. Records request sent to Prescribing MD Dr. Lieberman awaiting records at this time. Records from ER visits and OB follow up on 04/09, available for review * Telephone Encounter - Jude Aldrich MD - 04/28/2020 4:34 PM EST I do not see this medication on her chart. * Telephone Encounter - Allison Kaiser MA - 04/28/2020 2:44 PM EST Pt's boyfriend is calling. Pt is in [facility] and is in need of a refill on herKeppra. This was prescribed by [facility] ER in October of last year when she was in a recovery center in [facility]. How can she go about getting that refilled? Ok to leave him a detailed message if he doesn't answer. documented in this encounter Plan of Treatment [...] documented as of this encounter Care Teams Computer Programmer Analyst Relationship Specialty Start Date End Date Nehemias Barron MD [address] [place] [address] PCP - General 12/01/10 Easton Thompson MD [address] [place] [address] [address] [place] [address] Physician Obstetrics & Gynecology 01/29/14 Radha Wild APRN [address] [facility] [address] Nurse Practitioner 11/04/15 documented as of this encounter
--- OUTSIDE RECORDS SUMMARY | 2024-03-07 05:05 | XMS_ITS | Encounter Summary ---
Author Organization [facility] [place] [address] Care Team Providers Care Animal Care Giver Name Role Phone Nehemias Barron MD Primary Care Provider Easton Thompson MD Unavailable [phone] Radha Wild [place] Unavailable [phone] Encounter Details Date Type Department Care Team (Latest Contact Info) Description 10/15/2020 Travel Social History Tobacco Use Types Packs/Day [...] Mariana Greer CCMA documented in this encounter Plan of Treatment [...] documented as of this encounter Care Teams Animal Care Giver Relationship Specialty Start Date End Date Nehemias Barron MD [address] [place] [address] PCP - General 12/01/10 Easton Thompson MD [address] [place] [address] [address] [place] [address] Physician Obstetrics & Gynecology 01/29/14 Radha Wild APRN [address] [facility] [place] [address] Nurse Practitioner 11/04/15 documented as of this encounter
--- OUTSIDE RECORDS SUMMARY | 2024-03-07 05:05 | XMS_ITS | Encounter Summary ---
Author Organization [place] [address] Care Team Providers Care Cause Analyst Name Role Phone Nehemias Barron MD Primary Care Provider [phone] Easton Thompson MD Unavailable [phone] Radha Wild CORPORATE JOB TITLES Unavailable [phone] Reason for Referral * Consultation (Routine) - Closed Specialty Diagnoses / Procedures Referred By Eusebia t Referred To Contact Diagnoses Encounter for other general counseling or advice on contraception Nehemias Barron MD [address] [place] [address] Phone: tel: fax: Viral Castellon MD Phone: tel: fax: Referral ID Status Reason Start Date Expiration Date Visits Re quested Visits Authorized [id number] Closed 10/27/2020 10/27/2021 99 99 * Consultation (Routine) - Closed Specialty Diagnoses / Procedures Referred By Contjamal t Referred To Contact Gastroenterology Diagnoses Chronic hepatitis C without hepatic coma (HCC) Nehemias Barron MD [address] [place] [address] Phone: tel: fax: Brett So MD Phone: tel: fax: Referral ID Status Reason Start Date Expiration Date Visits Re quested Visits Authorized [id number] Closed 10/27/2020 10/27/2021 99 99 Question Answer Is this referral for colon cancer screening? No Provider Options First Available * Ultrasound (Routine) - Closed Specialty Diagnoses / Procedures Referred By Eusebia t Referred To Contact Radiology Diagnoses Biliary colic Procedures US RIGHT UPPER QUADRANT Nehemias Barron MD [address] [place] [address] Phone: tel: fax: Referral ID Status Reason Start Date Expiration Date Visits Re quested Visits Authorized [id number] Closed 10/27/2020 10/27/2021 1 1 Reason for Visit * Reason Comments Back Pain feels back contract ions. diagnosed with Hep C before going to group home back in february 2020. Encounter Details Date Type Department Care Team (Latest Contact Info) Description 10/27/2020 3:30 PM EDT Office Visit [facility] [address] [place] [address] Nehemias Barron MD [address] [place] [address] Biliary colic (Primary Dx); Chronic hepatitis C without hepatic coma (HCC); Encounter for other general counseling or advice on contraception Social History Tobacco Use Types Packs/Day Years [...] have Coronavirus / COVID-19? No / Unsure 10/27/2020 3:12 PM EDT documented as of this encounter Last Filed Vital Signs Vital Sign Reading Time Taken Comments Blood Pressure 98/66 10/27/2020 3:35 PM EDT Pulse 125 10/27/2020 3:35 PM EDT Temperature 37 ??C (98.6 ??F) 10/27/2020 3:35 PM EDT Respiratory Rate - - Oxygen Saturation 95% 10/27/2020 3:35 PM EDT Inhaled Oxygen Concentration - - Weight 63.5 kg (140 lb) 10/27/2020 3:35 PM EDT Height 165.1 cm (5' 5 ) 10/27/2020 3:35 PM EDT Body Mass Index 23.3 10/27/2020 3:35 PM EDT documented in this encounter Functional [...] No 10/27/2020 3:29 PM EDT Anel Hope Rigo documented in this encounter Progress Notes * Nehemias Barron MD - 10/27/2020 3:30 PM EDT Vitals: 10/27/20 1535 BP: 98/66 Pulse: 125 Temp: 98.6 ??F (37 ??C) SpO2: 95% Weight: 140 lb (63.5 kg) Height: 5' 5 (1.651 m) SUBJECTIVE: Chief Complaint Patient presents with ??? Back Pain feels back contractions. diagnosed with Hep C before going to group home back in february 2020. HPI: Known hep C Had been in group home since FEB 2020 For DUI, started using IV heroin, now clean for 2-3 years Released on October 10 Has been having R sided abd pain, rad to R back, worse after meals Seen ED at [facility] BW all ok, UA ok CT abd/pelvis normal per pt, this is not currently available for my review Had previously had nexplanon implant for contraception OCP's she was intolerant to and depoprovera as well Would like to consider inplant again for contraception Review of Systems All other systems reviewed [...] is flat. Tenderness: There is abdominal tenderness (minimal right sided tenderness). Musculoskeletal: Right lower leg: No edema. Left lower leg: No edema. Skin: Capillary Refill: Capillary refill takes less than 2 seconds. Neurological: General: No focal deficit present. Mental Status: She is alert and oriented to person, place, and time. Mental status is at baseline. Psychiatric: Mood and Affect: Mood normal. Behavior: Behavior normal. Assessment Diagnoses and all orders for this visit: Biliary colic - US RIGHT UPPER QUADRANT; Future Chronic hepatitis C without hepatic coma (HCC) (Chronic) - AMB REFERRAL TO GASTROENTEROLOGY - HCV QUANT W/RFLX TO GENOTYPE -REF LAB; Future Encounter for other general counseling or advice on contraception - AMB REFERRAL TO OB-MULTIMEDIA SPECIALIST Recheck hep C viral load, reflex to genotype Refer to GI for consideration of treatment if virus present Check RUQ US Refer to MULTIMEDIA SPECIALIST for consideration of nexplanon Advised to use condoms and should be due to Hep C documented in this encounter Plan of Treatment Scheduled Referrals Name Type Priority Associated Diagnoses Orde r Schedule AMB REFERRAL TO GASTROENTEROLOGY Outpatient Referral Routine Chronic hepatitis C without hepatic coma (HCC) Ordered: 10/27/2020 AMB REFERRAL TO OB-MULTIMEDIA SPECIALIST Outpatient Referral Routine Encounter for other general counseling or advice on contraception Ordered: 10/27/2020 documented as of this encounter Goals Goal Patient Goal Type Associated Problems Recent Progress Patient-Stated? Author Maintain a healthy diet, exercise regularly and maintain an ideal body weight General No Shraddha Dolan LPN Stay Tobacco Free Lifestyle No Shraddha Dolan LPN documented as of this encounter Procedures Procedure Name Priority Date/Time Associated Diagnosis Comments HCV QUANT W/RFLX TO GENOTYPE -REF LAB Routine 10/27/2020 4:14 PM EDT Chronic hepatitis C without hepatic coma (HCC) HCV GENOTYPE BY PCR AND SEQUENCING -REF LAB Routine 10/27/2020 4:14 PM EDT Chronic hepatitis C without hepatic coma (HCC) documented in this encounter Results * US RIGHT UPPER QUADRANT (10/31/2020 9:59 AM EDT) Anatomical Region Laterality Modality Abdomen Ultrasound 10/31/2020 9:59 AM EDT Impressions 10/31/2020 10:15 AM EDT Unremarkable right upper quadrant ultrasound. ?? - - Narrative 10/31/2020 10:15 AM EDT US RIGHT UPPER QUADRANT, ??10/31/2020 9:59 AM CLINICAL HISTORY: ??K80.50-Calculus of bile duct without cholangitis or cholecystitis without [id number]-CM. COMPARISON: ??None. PROCEDURE COMMENTS: Ultrasound examination of the right upper quadrant performed by the technologist. Sent to PACS along with tech notes for radiologist review. ? FINDINGS: ?? Gallbladder: Normal. Chow's sign: ??Negative. Liver: No focal lesion. Common bile duct: Measures 2 mm. (Normal is 6mm or less. If there has been cholecystectomy, normal is 10mm or less.) Pancreas: ??Visualized portions are normal. Other: ??Right kidney non-hydronephrotic and measures 10.6 cm in length.. Procedure Note [place] MD - 10/31/2020 US RIGHT UPPER QUADRANT, 10/31/2020 9:59 AM CLINICAL HISTORY: K80.50-Calculus of bile duct without cholangitis or cholecystitis without [id number]-CM. COMPARISON: None. PROCEDURE COMMENTS: Ultrasound examination of the right upper quadrantperformed by the technologist. Sent to PACS along with tech notes for radiologistreview. FINDINGS: Gallbladder: Normal. Chow's sign: Negative. Liver: No focal lesion. Common bile duct: Measures 2 mm. (Normal is 6mm or less. If there hasbeen cholecystectomy, normal is 10mm or less.) Pancreas: Visualized portions are normal. Other: Right kidney non-hydronephrotic and measures 10.6 cm in length.. IMPRESSION: Unremarkable right upper quadrant ultrasound. - - Nehemias Barron MD [facility] US ORDERABLES Final Resul t * HCV GENOTYPE BY PCR AND SEQUENCING -REF LAB (10/27/2020 4:14 PM EDT) HCV Genotyping by PCR & Sequen 3a 11/01/2020 11:45 AM EDT [facility] Comment: INTERPRETIVE INFORMATION: ??Hepatitis C Genotyping Hepatitis C Viral RNA is tested using reverse revenue specialist polymerase chain reaction (RT-PCR) to amplify a specific portion of the 5' untranslated region (5' UTR) of the viral genome. The amplified nucleic acid is sequenced bi-directionally using dye-terminator chemistry ([employer]). Sequencing data is compared to a database [...] developed and its performance characteristics determined by [facility]. It has not been cleared or approved by the [place] Food and Drug Administration. This test was performed in a CLIA certified laboratory and is intended for clinical purposes. Performed By: [facility] [address] [place] [address] Jewelry Bench Worker: Prabha Lovell MD Blood VENOUS BLOOD / Unknown Venipuncture / Unknown 10/27/2020 4:14 PM EDT 10/27/2020 4:14 PM EDT us Nehemias Barron MD IMMUNOLOGY ORDERABLES Final R esult [facility] [address] [place], [place] [id number] * (ABNORMAL) HCV QUANT W/RFLX TO GENOTYPE -REF LAB (10/27/2020 4:14 PM EDT) HCV Qnt by NAAT (IU/mL) 153,389 10/29/2020 8:35 PM EDT [facility] HCV Qnt by NAAT (log IU/mL) 5.19 log IU/mL 10/29/2020 8:35 PM EDT [facility] Comment: Hepatitis C Virus Genotype by Sequencing added. HCV Qnt by NAAT Interp Detected( A) Not Detected 10/29/2020 8:35 PM EDT [facility] Comment: INTERPRETIVE INFORMATION: HCV by Quantitative NAAT [...] and Cellular Tissue-Based Products (HCT/P). Performed by [facility], [address] [place] [id number] [email or web address], Prabha Lovell MD, Lab. Director Blood VENOUS BLOOD / Unknown Venipuncture / Unknown 10/27/2020 4:14 PM EDT 10/27/2020 4:14 PM EDT us Nehemias Barron MD IMMUNOLOGY ORDERABLES Final R esult [facility] [address] [place] [address] documented in this encounter Visit Diagnoses Diagnosis Biliary colic- Primary Calculus of gallbladder without mention of cholecystitis or obstruction Chronic hepatitis C without hepatic coma (HCC) Encounter for other general counseling or advice on contraception Biliary colic Calculus of gallbladder without mention of cholecystitis or obstruction documented in this encounter Discontinued Medications Medication Sig Discontinue Reason Start Date End Da te Etonogestrel (NEXPLANON) 68 mg Sdrm Implant by Subdermal route. DELETE-Therapy completed 10/27/2020 documented as of this encounter Care Teams Cause Analyst Relationship Specialty Start Date End Date Nehemias Barron MD [address] [facility] [place] [address] PCP - General 12/01/10 Easton Thompson MD [address] [place] [address] [address] [place] [address] Physician Obstetrics & Gynecology 01/29/14 Radha Wild APRN [address] [place] [address] Nurse Practitioner 11/04/15 documented as of this encounter
--- OUTSIDE RECORDS SUMMARY | 2024-03-07 05:05 | XMS_ITS | Encounter Summary ---
Author Organization [facility] [place] [address] Care Team Providers Care Assistant Casino Shift Manager Name Role Phone Nehemias Barron MD Primary Care Provider Easton Thompson MD Unavailable [phone] Radha Wild KINDERGARTEN CLASSROOM TEACHER Unavailable [phone] Encounter Details Date Type Department Care Team (Latest Contact Info) Description 10/31/2020 Travel Social History Tobacco Use Types Packs/Day [...] on filedocumented in this encounter Care Teams Assistant Casino Shift Manager Relationship Specialty Start Date End Date Nehemias Barron MD [address] [place] [address] PCP - General 12/01/10 Easton Thompson MD [address] [place] [address] [address] [place] [address] Physician Obstetrics & Gynecology 01/29/14 Radha Wild APRN [address] [place] [address] Nurse Practitioner 11/04/15 documented as of this encounter
--- OUTSIDE RECORDS SUMMARY | 2024-03-07 05:05 | XMS_ITS | Encounter Summary ---
Author Organization [facility] [place] [address] Care Team Providers Care Neuro Intensivist Physician Name Role Phone Nehemias Barron MD Primary Care Provider [phone] Easton Thompson MD Unavailable [phone] Radha Wild GRADUATE NURSE Unavailable [phone] Encounter Details Date Type Department Care Team (Latest Contact Info) Description 10/27/2020 Travel Social History Tobacco Use Types Packs/Day [...] on filedocumented in this encounter Care Teams Neuro Intensivist Physician Relationship Specialty Start Date End Date Nehemias Barron MD [address] [place] [address] PCP - General 12/01/10 Easton Thompson MD [address] [place] [address] [address] [place] [address] Physician Obstetrics & Gynecology 01/29/14 Radha Wild APRN [address] [place] [address] Nurse Practitioner 11/04/15 documented as of this encounter
--- OUTSIDE RECORDS SUMMARY | 2024-03-07 05:05 | XMS_ITS | Encounter Summary ---
Author Organization [place] [address] Care Team Providers Care Motor Equipment Commanding Officer Name Role Phone Nehemias Barron MD Primary Care Provider [phone] Easton Thompson MD Unavailable [phone] Radha Wild APRN Unavailable [phone] Reason for Visit * Reason Comments Medication Refill Encounter Details Date Type Department Care Team (Late st Contact Info) Description 2020 Refill SEP [facility] [address] [facility] [place] [address] Jude Aldrich MD [address] [place] [address] Medication Refill Social History Tobacco [...] Mariana Greer CCMA documented in this encounter Ordered Prescriptions Prescription Sig Dispense Quantity Refills Last Filled Start Date End Date levETIRAcetam (KEPPRA) 750 mg Oral TabletIndications: Seizure disorder (HCC) TAKE 2 TABLETS BY MOUTH TWICE A DAY 120 Tab 2020 documented in this encounter Plan of Treatment Not on file documented as of this encounter Goals Goal Patient Goal Type Associated Problems Recent Progress Patient-Stated? Author Maintain a healthy diet, exercise regularly and maintain an ideal body weight General No Shraddha Dolan LPN Stay Tobacco Free Lifestyle No Shraddha Dolan LPN documented as of this encounter Visit Diagnoses Diagnosis Seizure disorder (HCC) Unspecified epilepsy without mention of intractable epilepsy documented in this encounter Discontinued Medications Medication Sig Discontinue Reason Start Date End Da te levETIRAcetam (KEPPRA) 750 mg Oral TabletIndications:Seizure disorder (HCC) Take 2 Tabs by mouth 2 times daily. 04/29/2020 2020 documented as of this encounter Additional Health Concerns Assessment Noted Time PHQ-9 Depression Total Score: 019 9:00 AM EDT PHQ-2 Depression Total Score: 6 08/27/19 19 9:00 AM EDT documented as of this encounter Care Teams Motor Equipment Commanding Officer Relationship Specialty Start Date End Date Nehemias Barron MD [address] [place] [address] PCP - General 12/01/10 Easton Thompson MD [address] [place] [address] [address] [place] [address] Physician Obstetrics & Gynecology 01/29/14 Radha Wild APRN [address] [place] [address] Nurse Practitioner 11/04/15 documented as of this encounter
--- OUTSIDE RECORDS SUMMARY | 2024-03-07 05:05 | XMS_ITS | Encounter Summary ---
Author Organization [place] [address] Care Team Providers Care Firmware Software Verification Engineer Name Role Phone Nehemias Barron MD Primary Care Provider Easton Thompson MD Unavailable [phone] Radha Wild APRN Unavailable [phone] Reason for Visit * Reason Onset Date Comments Appointment Needed 10/14/2020 Office Visit Follow up on medication - seizure Encounter Details Date Type Department Care Team (Late st Contact Info) Description 10/14/2020 Telephone SEP [facility] [address] [facility] [place] [address] Nehemias Barron MD [address] [place] [address] Appointment Needed ( Office Visit Follow up on medication - seizure ) Social History Tobacco Use Types Packs/Day Years [...] Telephone Encounter - Mallorie Gee MA - 10/14/2020 9:22 AM EDT Patient scheduled * Telephone Encounter - Meena Gilbert - 10/14/2020 8:07 AM EDT Appointment Needed Appointment Requested By: Patient Provider Preference: PCP Only Type of Appt Needed: Office Visit Follow up on medication - seizure Requested Timeframe: Today - patient advised will be out soon and needs an appt before refill. Additional Notes: documented in this encounter Plan of Treatment [...] documented as of this encounter Care Teams Firmware Software Verification Engineer Relationship Specialty Start Date End Date Nehemias Barron MD [address] [place] [address] PCP - General 12/01/10 Easton Thompson MD [address] [place] [address] [address] [place] [address] Physician Obstetrics & Gynecology 01/29/14 Radha Wild APRN [address] [place] [address] Nurse Practitioner 11/04/15 documented as of this encounter
--- OUTSIDE RECORDS SUMMARY | 2024-03-07 05:05 | XMS_ITS | Encounter Summary ---
Author Organization [place] [address] Care Team Providers Care Product Tester Name Role Phone Nehemias Barron MD Primary Care Provider [phone] Easton Thompson MD Unavailable [phone] Radha Wild OPTO MECHANICAL ENGINEER Unavailable [phone] Encounter Details Date Type Department Care Team (Latest Contact Info) Description 10/15/2020 12:45 PM EDT Telemedicine [facility] [address] [facility] [place] [address] Nehemias Barron MD [address] [place] [address] Seizure disorder (HCC) (Primary Dx) Social History Tobacco Use Types [...] End Date levETIRAcetam (KEPPRA) 750 mg Oral TabletIndications:S eizure disorder (HCC) Take 2 Tabs by mouth 2 times daily. 120 Tab 12 10/15/2020 documented in this encounter Progress Notes * Nehemias Barron MD - 10/15/2020 12:45 PM EDT Patient presented today for routine care follow-up through a video visit. Patient has reviewed the terms and conditions of service as part of the registration for today's visit. A video visit does not replace a sfzi-cy-dnow exam and further services may be necessary. We are conducting her video visit in a private space and this video visit is being conducted in accordance with state telehealth/video visit regulations. HPI: sz do Dx about a year ago Had two seizures while incarcerated, none further after dose increased Tolerates keppra well Review of Systems All other systems reviewed [...] Diagnoses and all orders for this visit: Seizure disorder (HCC) (Chronic) Overview: Diagnosed in [facility] October 2019 Has done well on Keppra 1500 twice daily. Orders: - levETIRAcetam (KEPPRA) 750 mg Oral Tablet; Take 2 Tabs by mouth 2 times daily. Dispense: 120 Tab;Refill: 12 Ok to cont keppra No recent seizures Tolerating well at this dose without issue documented in this encounter Plan of Treatment Not on file documented as of this encounter Goals Goal Patient Goal Type Associated Problems Recent Progress Patient-Stated? Author Maintain a healthy diet, exercise regularly and maintain an ideal body weight General No Shraddha Dolan LPN Stay Tobacco Free Lifestyle No Shraddha Dolan LPN documented as of this encounter Visit Diagnoses Diagnosis Seizure disorder (HCC)- Primary Unspecified epilepsy without mention of intractable epilepsy documented in this encounter Discontinued Medications Medication Sig Discontinue Reason Start Date End Da te traZODone (DESYREL) 50 mg Oral TabletIndications:Insomn ia, persistent Take 1 Tab by mouth nightly. DELETE-Therapy completed 08/26/2018 10/15/2020 DULoxetine (CYMBALTA) 60 mg Oral Capsule, Delayed Release(E.C.)Indications :MDD (major depressive disorder), recurrent episode, moderate (HCC) Take 1 Cap by mouth daily. DELETE-Therapy completed 08/26/2018 10/15/2020 levonorgestrel-ethinyl estradiol (SRONYX) 0.1-20 mg-mcg Oral TabletIndications:Oral contraceptive pill surveillance Take 1 Tab by mouth daily. Cancelled by 01/04/2017 10/15/2020 levETIRAcetam (KEPPRA) 750 mg Oral TabletIndications:Seizur e disorder (HCC) TAKE 2 TABLETS BY MOUTH TWICE A DAY Reorder 2020 10/15/2020 documented as of this encounter Additional Health Concerns Assessment Noted Time PHQ-9 Depression Total Score: 22 019 9:00 AM EDT PHQ-2 Depression Total Score: 6 08/27/19 19 9:00 AM EDT documented as of this encounter Care Teams Product Tester Relationship Specialty Start Date End Date Nehemias Barron MD [address] [place] [address] PCP - General 12/01/10 Easton Thompson MD [address] [place] [address] [address] [place] [address] Physician Obstetrics & Gynecology 01/29/14 Radha Wild APRN [address] [place] [address] Nurse Practitioner 11/04/15 documented as of this encounter
--- OUTSIDE RECORDS SUMMARY | 2024-03-07 05:05 | XMS_ITS | Encounter Summary ---
Author [place] [address] Care Team Providers Care Director Of People Name Role Phone Nehemias Barron MD Primary Care Provider Easton Thompson MD Unavailable [phone] Radha Wild ADMINISTRATIVE TECHNICIAN Unavailable [phone] Reason for Visit * Reason Comments Vaginal Bleeding right sided abdomina l pain with bleeding started today. Pt sts around 6 weeks . Encounter Details Date Type Department Care Team (Late st Contact Info) Description 03/30/2020 6:23 PM EST - 03/30/2020 10:02 PM EST Emergency [facility] [place] [address] Sergei Levine MD [address] [place] [address] [place] [address] Vaginal bleeding in (Primary Dx); Bacterial vaginosis in Discharge Disposition: Home or Self Care Social [...] have Coronavirus / COVID-19? No / Unsure 03/30/2020 6:22 PM EST documented as of this encounter Last Filed Vital Signs Vital Sign Reading Time Taken Comments Blood Pressure 121/93 03/30/2020 10:01 PM EST Pulse 85 03/30/2020 10:01 PM EST Temperature 37.3 ??C (99.1 ??F) 03/30/2020 6:40 PM ES T Respiratory Rate 16 03/30/2020 10:01 PM EST Oxygen Saturation 97% 03/30/2020 10:01 PM EST Inhaled Oxygen Concentration - - Weight 62.6 kg (138 lb) 03/30/2020 6:40 PM EST Height 165.1 cm (5' 5 ) 03/30/2020 6:40 PM EST Body Mass Index 22.96 03/30/2020 6:40 PM EST documented in this encounter Functional Status * [...] Mariana Greer CCMA documented in this encounter Discharge Instructions * Discharge Instructions* Columba Mcgill APRN - 03/30/2020 9:48 PM EST No heavy lifting or straining. No sexual activity. Use Clindamycin cream nightly for bacterial vaginosis infection x 7 days. Continue vitamin daily. Have hormone level (hcg Quant) level repeated in 2 days. Follow up with [facility]. Return to the ER for any new or worsening symptoms including increased bleeding, worsening pain, uncontrolled nausea, vomiting, or any other concerning symptoms. * Attachments The following attachments cannot be sent through Care Everywhere. * BACTERIAL VAGINOSIS [id number] (ARMENIAN) * Activity Restriction During (Hebrew) * Threatened Miscarriage [id number] (Hebrew) documented in this encounter Medications at Time of Discharge clindamycin (CLEOCIN) 2 % Vagl Cream Place 1 Applicator vaginally daily for 7 days. 40 g 03/30/2020 0 documented as of this encounter Ordered Prescriptions Prescription Sig Dispense Quantity Refills Last Filled Start Date End Date clindamycin (CLEOCIN) 2 % Vagl Cream Place 1 Applicator vaginally daily for 7 days. 40 g 03/30/2020 0 documented in this encounter Discharge Disposition Disposition Code Departure Means Destination Home or Self [place] documented in this encounter ED Notes * Columba Mcgill APRN - 03/30/2020 6:20 PM EST CHIEF COMPLAINT Chief Complaint Patient presents with ??? Vaginal Bleeding right sided abdominal pain with bleeding started today. Pt sts around 6 weeks . HPI Bonny Olivares is a 29 y.o. female who presents to the Emergency department for evaluation of vaginal bleeding and right lower abdominal pain in early . LNMP started on 02/09/20. Bleeding and cramping started yesterday, bleeding is intermittent, dark red spotting. Pain is located in right abdomen and radiates to the right lower back. Complains of nausea and vomiting. She is 10, para 2, AB 7. Denies any dysuria, hematuria, frequency, fever, or chills. She has had some pink vaginal discharge, no pelvic pain. REVIEW OF SYSTEMS See HPI for further details. Review of systems otherwise negative. PAST MEDICAL HISTORY Past Medical History: Diagnosis Date ??? Anemia [...] to see patient in office before surgery FAMILY HISTORY Family History Problem Relation Age of Onset ??? Cancer Maternal Grandmother melanoma ??? Anesth Problems Neg Hx SOCIAL HISTORY Social History Socioeconomic History ??? Marital status: Single Spouse name: Not on file ??? Number of children: Not on file ??? Years of education: Not on file ??? Highest education level: Not on file Tobacco Use ??? Smoking status: Current Every Day Smoker Packs/day: 1.00 Years: 8.00 Pack years: 8.00 Types: Cigarettes Start date: 04/11/2005 Last attempt to quit: 10/09/2015 Years since quittin.4 ??? Smokeless tobacco: Never Used Substance and Sexual Activity ??? Alcohol use: No ??? Drug use: No ??? Sexual activity: Yes Partners: Male SURGICAL HISTORY Past Surgical History: Procedure Laterality Date ??? APPENDECTOMY age 7 ??? CERVIX BIOPSY 2010, 05/29/2013 ??? DILATION AND CURETTAGE OF UTERUS N/A 02/20/2014 DILATION & CURETTAGE SUCTION EVACUATION FOR MISSCARRIAGE ; Surgeon: Kash Tabares MD; Location: [facility] MAIN OR; Service: Gynecology ??? LEEP N/A 06/27/2013 LOOP EXCISION PROCEDURE (LEEP); Surgeon: Sachin Castellanos MD; Location: [facility] MAIN OR; Service: Gynecology ??? SKIN CANCER EXCISION 06/2012 melanoma back CURRENT MEDICATIONS No current facility-administered medications for this encounter. Current Outpatient Medications: ??? DULoxetine (CYMBALTA) 60 mg Oral Capsule, Delayed Release(E.C.), Take 1 Cap by mouth daily., Disp: 30 Cap, Rfl: 5 ??? Etonogestrel (NEXPLANON) 68 mg Sdrm Implant, by Subdermal route., Disp: , Rfl: ??? levonorgestrel-ethinyl estradiol (SRONYX) 0.1-20 mg-mcg Oral Tablet, Take 1 Tab by mouth daily.(Patient not taking: Reported on 09/22/2017), Disp: 28 Tab, Rfl: 12 ??? traZODone (DESYREL) 50 mg Oral Tablet, Take 1 Tab by mouth nightly., Disp: 30 Tab, Rfl: 5 ALLERGIES Allergies Allergen Reactions ??? Citalopram Hives ??? Effexor [Venlafaxine] Nausea And Vomiting and Other (See Comments) Shaky, lightheaded ??? Sulfa (Sulfonamide Antibiotics) Swelling and Rash throat closes up, rash, and red everywhere PHYSICAL EXAM VITAL SIGNS: Vitals: 03/30/20 1840 03/30/20 2201 BP: 109/56 (!) 121/93 BP Location: Right arm Patient Position: Semi Fowlers Pulse: 78 85 Resp: 16 16 Temp: 99.1 ??F (37.3 ??C) TempSrc: Oral SpO2: 97% 97% Weight: 138 lb (62.6 kg) Height: 5' 5 (1.651 m) Constitutional: Well developed, Well nourished, No acute distress, Non-toxic appearance. Pleasant female patient, joão present. HENT: Normocephalic, Atraumatic, Bilateral external ears normal, Oropharynx moist, No oral exudates, Nose normal. Eyes: PERRLA, EOMI, Conjunctiva normal, No discharge. Neck: Normal range of motion, No tenderness, Supple, No stridor. Lymphatic: No lymphadenopathy noted. Cardiovascular: Normal heart rate, Normal rhythm, No murmurs, No rubs, No gallops. Thorax & Lungs: Normal breath sounds, No respiratory distress, No wheezing, No chest tenderness. Abdomen: Bowel sounds normal, Soft, left lower abdominal tenderness with palpation, No masses, No pulsatile masses. No rebound or organomegly. Skin: Warm, Dry, No erythema, No rash. Back: No tenderness, No CVA tenderness. Extremities: Intact distal pulses, No edema, No tenderness, No cyanosis, No clubbing. Neurologic: Alert & oriented x 3, Normal motor function, Normal sensory function, No focal deficits noted. RADIOLOGY/PROCEDURES Results for orders placed or performed during the hospital encounter of 03/30/20 CHLAMYDIA/GC Specimen: Cervix; Swab Narrative The following orders were created for panel order CHLAMYDIA/GC. Procedure Abnormality Status --------- ------ CHLAMYDIA/GC TMA-REF LAB[[id number]] In process Please view results for these tests on the individual orders. GRAM STAIN (STAIN ONLY) Specimen: Cervix; Swab Result Value Ref Range Stain Abundant epithelial cells (A) Stain Moderate WBCs (A) Stain (A) Mixed morphotypes consistent with bacterial vaginosis. TRICHOMONAS AG Specimen: Vagina; Swab Result Value Ref Range Trichomonas Ag Not Detected Not Detected US OB TRANSVAGINAL < 11 WEEKS Narrative US OB TRANSVAGINAL < 11 WEEKS, 03/30/2020 9:18 PM CLINICAL HISTORY: -VAGINAL BLEEDING. COMPARISON: None. PROCEDURE COMMENTS: Transabdominal and endovaginal sonographic imaging of the pelvis in a patient. FINDINGS: Uterus measures 7.5 x 4.7 x 3.8 cm. Endometrium measures 8 mm. Suspected gestational sac measuring 8.9 mm and possible tiny yolk sac measuring 1.8 mm. No pole. Bilateral ovaries are normal in sonographic appearance. Left ovary measures 1.9 x 2.5 x 1.8 cm. Right ovary measures 2.8 x 2.2 x 2.6 cm. Impression Early gestational sac with tiny yolk sac. No pole at this point. Continued hCG and OB follow-up. - CBC Result Value Ref Range WBC 4.5 3.7 - 10.3 x10(3)/mcL RBC 3.76 (L) 3.90 - 5.20 x10(6)/mcL Hgb 11.8 11.2 - 15.7 g/dL Hct 35.0 34.0 - 45.0 % MCV 93.1 80.0 - 100.0 fL MCH 31.4 26.0 - 34.0 pg MCHC 33.7 30.7 - 35.5 g/dL RDW 11.2 <=14.9 % Platelet 187 155 - 369 x10(3)/mcL MPV 10.5 8.8 - 12.5 fL HUMAN CHORIONIC GONADOTROPIN QUANTITATIVE Result Value Ref Range Hcg Quant 2,621 (H) <5 mIU/mL Narrative Female (non-): 0-4.9 mIU/mL Female (postmenopausal): 0-8.1 mIU/mL Indeterminate values for (e.g., 5-25 mIU/mL) may be confirmed with a repeat test in 48-72hours. Values in should double every 2-3 days for the first six weeks. Ingestion of cindi doses of biotin (>5 mg/day) taken within 8 hours of drawing blood sample can interfere with this immunoassay test. URINALYSIS Result Value Ref Range UA Color Yellow UA Appear Cloudy (A) Clear UA Glucose Negative Negative mg/dL UA Ketones Negative Negative mg/dL UA Blood 2+ (0.2 - 0.5 mg/dL) (A) Negative UA pH 7.0 5.0 - 8.0 pH UA Protein 1+ (30-70 mg/dL) (A) Negative mg/dL UA Urobilinogen Normal <=1 mg/dL UA Bili Negative Negative UA Nitrite Negative Negative UA Leuk Est Negative Negative UA Spec Grav 1.034 1.001 - 1.035 no units UA WBC 0 0 - 4 /HPF UA RBC 35 (H) 0 - 3 /HPF UA Squam Epi 4+ /LPF UA Mucus Trace /LPF COURSE & MEDICAL DECISION MAKING Pertinent Labs & Imaging studies reviewed. (See chart for details) Evaluated for above complaints of findings noted. Well-appearing 29-year-old female, arrives from assisted for evaluation of vaginal bleeding early . Penitentiary personnel is present as patient is incarcerated. Patient exhibits tenderness with palpation of lower left abdomen. Pelvic exam performed at bedside, assisted with RN Terrie Cota. Moderate amount of dark red blood noted in the vagina. Cervical os appears closed. Cultures obtained. No cervical motion tenderness with bimanual exam. Appropriate laboratory testing obtained. Per chart review patient's blood type is AB+. Urinalysis negative for nitrites or leukocytes. CBC was unremarkable. HCG was 2621. Gram stain with mixed morphotypes consistent with bacterial vaginosis. Trichomonas culture was negative. Transvaginal ultrasound performed, shows early gestational sac with tiny yolk sac, no pole atthis time. Recommend serial hCG Quant repeated. Discussed findings with patient. She'll be provided Cleocin cream for bacterial vaginosis infection. She has vitamin that she has been taking. Written prescription provided for repeat blood work in 48 hours. Penitentiary personnel present, states laboratory testing can be obtained and she can receive medications while she is in assisted. Return precautions reviewed. Patient verbalizes understanding of discharge is discharged FINAL IMPRESSION 1. Vaginal bleeding in 2. Bacterial vaginosis in Discharged in stable condition. This chart was completed using voice recognition technology and may contain unintended errors Columba Mcgill APRN 03/30/202237 Cosigned by Sergei Levine MD at 03/30/2020 10:43 PM EST Associated attestation - Sergei Levine MD - 03/30/2020 10:43 PM EST This chart was completed using voice recognition [...] Name Priority Date/Time Associated Diagnosis Comments US OB TRANSVAGINAL < 11 WEEKS STAT 03/30/2020 9:18 PM EST CHLAMYDIA/GC Routine 03/30/2020 7:58 PM EST CHLAMYDIA/GC TMA-REF LAB Routine 03/30/2020 7:58 PM EST TRICHOMONAS AG STAT 03/30/2020 7:58 PM EST GRAM STAIN (STAIN ONLY) STAT 03/30/2020 7:58 PM EST CBC STAT 03/30/2020 7:33 PM EST HUMAN CHORIONIC GONADOTROPIN QUANTITATIVE STAT 03/30/2020 7:33 PM EST EXTRA DRISCOLL URINE CX STAT 03/30/2020 6 :58 PM EST URINALYSIS STAT 03/30/2020 6:46 PM EST documented in this encounter Results * US OB TRANSVAGINAL < 11 WEEKS (03/30/2020 9:18 PM EST) Anatomical Region Laterality Modality Pelvis Ultrasound 03/30/2020 9:18 PM EST Impressions 03/30/2020 9:27 PM EST Early gestational sac with tiny yolk sac. No pole at this point. Continued hCG and OB follow-up. - Narrative 03/30/2020 9:27 PM EST US OB TRANSVAGINAL < 11 WEEKS, ??03/30/2020 9:18 PM CLINICAL HISTORY: ??-VAGINAL BLEEDING. COMPARISON: ??None. PROCEDURE COMMENTS: Transabdominal and endovaginal sonographic imaging of the pelvis in a patient. FINDINGS: ?? Uterus measures 7.5 x 4.7 x 3.8 cm. Endometrium measures 8 mm. Suspected gestational sac measuring 8.9 mm and possible tiny yolk sac measuring 1.8 mm. No pole. Bilateral ovaries are normal in sonographic appearance. Left ovary measures 1.9 x 2.5 x 1.8 cm. Right ovary measures 2.8 x 2.2 x 2.6 cm. Procedure Note Balaji Linn MD - 03/30/2020 US OB TRANSVAGINAL < 11 WEEKS, 03/30/2020 9:18 PM CLINICAL HISTORY: -VAGINAL BLEEDING. COMPARISON: None. PROCEDURE COMMENTS: Transabdominal and endovaginal sonographic imaging ofthe pelvis in a patient. FINDINGS: Uterus measures 7.5 x 4.7 x 3.8 cm. Endometrium measures 8 mm. Suspected gestational sac measuring 8.9 mm and possible tiny yolk sac measuring 1.8mm. No pole. Bilateral ovaries are normal in sonographic appearance. Left ovary measures 1.9 x 2.5 x 1.8 cm. Right ovary measures 2.8 x 2.2 x2.6 cm. IMPRESSION: Early gestational sac with tiny yolk sac. No pole at this point.Continued hCG and OB follow-up. - Columba Mcgill APRN [facility] [place] ORDER[place]LES Final R esult * CHLAMYDIA/GC TMA-REF LAB (03/30/2020 7:58 PM EST) APTIM[employer] Media Type Unisex Swab 04/02/2020 9:18 AM EST [employer] Specimen Source Cervical 0 9:18 AM EST [employer] C. trachomatis by TMA Negative Negative 04/02/2020 9:18 AM EST [employer] Comment: INTERPRETIVE INFORMATION: C. trachomatis by TMA This test is intended for medical purposes only and is not valid for the evaluation of suspected sexual abuse or for other forensic purposes. In certain contexts, culture may be required to meet applicable laws and regulations for diagnosis of C. trachomatis and N. gonorrhoeae infections. Per 2014 CDC recommendations, this test does not include confirmation of positive results by an alternative nucleic acid target. N. gonorrhoeae by TMA Negative Negative 04/02/2020 9:18 AM EST [employer] Comment: INTERPRETIVE INFORMATION: N. gonorrhoeae by TMA This test is intended for medical purposes only and is not valid for the evaluation of suspected sexual abuse or for other forensic purposes. In certain contexts, culture may be required to meet applicable laws and regulations for diagnosis of C. trachomatis and N. gonorrhoeae infections. Per 2014 CDC recommendations, this test does not include confirmation of positive results by an alternative nucleic acid target. Performed by [email or web address], [address] [place] [address] [email or web address], Prabha Lovell MD, Lab. Director Swab SPECIMEN FROM UTERINE CERVIX / Unknown 03/30/2020 7:58 PM EST 03/30/2020 8:01 PM EST Columba Mcgill APRN MICROBIOLOGY - GENERAL OR DERABLES Final Result Performing Organization Address [facility]/ZIP Co de Phone Number [employer] [address] [place] [address] * TRICHOMONAS AG (03/30/2020 7:58 PM EST) Trichomonas Ag Not Detected Not Detected 2019 8:54 PM EST [facility] Swab SPECIMEN FROM VAGINA / Unknown 03/30/2020 7:58 PM EST 03/30/2020 8:01 PM EST Columba Mcgill APRN MICROBIOLOGY - GENERAL OR DERABLES Final Result Performing Organization Address [facility] de Phone Number [facility] [employer], [address] [facility] , [place] [address] * (ABNORMAL) GRAM STAIN (STAIN ONLY) (03/30/2020 7:58 PM EST) Stain Abundant epithelial cells(A) 03/30/2020 8:19 PM EST [facility] Stain Moderate WBCs(A) 03/30/20 20 8:19 PM EST [facility] Stain Mixed morphotypes consistent with bacterial vaginosis.(A) 03/30/2020 8:19 PM EST [facility] Swab SPECIMEN FROM UTERINE CERVIX / Unknown 03/30/2020 7:58 PM EST 03/30/2020 8:01 PM EST Columba Mcgill APRN MICROBIOLOGY - GENERAL OR DERABLES Final Result Performing Organization Address City/[facility] Co de Phone Number [facility] [employer], [address] [facility] , [place] [address] * (ABNORMAL) HUMAN CHORIONIC GONADOTROPIN QUANTITATIVE (03/30/2020 7:33 PM EST) Pathologist [facility] Hcg Quant 2,621(H) <5 mIU/mL 03/30/2020 8:15 PM EST [facility] Blood VENOUS BLOOD / Unknown Venipuncture / Unknown 03/30/2020 7:33 PM EST 03/30/2020 7:36 PM EST Narrative [facility] - 03/30/2020 8:15 PM EST Female (non-): 0-4.9 mIU/mL Female (postmenopausal): 0-8.1 mIU/mL Indeterminate values for (e.g., 5-25 mIU/mL) may be confirmed with a repeat test in 48-72 hours. Values in should double every 2-3 days for the first six weeks. Ingestion of cindi doses of biotin (>5 mg/day) taken within 8 hours of drawing blood sample can interfere with this immunoassay test. Columba Mcgill APRN CHEMISTRY ORDERABLES Kim manuelito Result [facility] [address] [place] [address] * (ABNORMAL) CBC (03/30/2020 7:33 PM EST) [facility] WBC 4.5 3.7 - 10.3 x10(3)/mcL 03/30/2020 7:46 PM EST [facility] RBC 3.76(L) 3.90 - 5.20 x10(6)/mcL 03/30/2020 7:46 PM [facility] Hgb 11.8 11.2 - 15.7 g/dL 03/30/2020 7:46 PM [facility] Hct 35.0 34.0 - 45.0 % 03/30/2020 7:46 PM [facility] MCV 93.1 80.0 - 100.0 fL 03/30/2020 7:46 PM [facility] MCH 31.4 26.0 - 34.0 pg 03/30/2020 7:46 PM [facility] MCHC 33.7 30.7 - 35.5 g/dL 03/30/2020 7:46 PM EST [facility] RDW 11.2 <=14.9 % 03/30/2020 7:46 PM EST [facility] Platelet 187 155 - 369 x10(3)/mcL 03/30/2020 7:46 PM EST [facility] MPV 10.5 8.8 - 12.5 fL 03/30/2020 7:46 PM EST [facility] Blood VENOUS BLOOD / Unknown Venipuncture / Unknown 03/30/2020 7:33 PM EST 03/30/2020 7:36 PM EST Columba Mcgill APRN HEMATOLOGY ORDERABLES Fin al Result Performing Organization Address [facility] [place] [address] * EXTRA DRISCOLL URINE CX (03/30/2020 6:58 PM EST) Urine 03/30/2020 6:58 PM EST 03/30/2020 6:58 PM EST Columba Mcgill APRN MICROBIOLOGY - GENERAL OR DERABLES Final Result Performing Organization Address [facility] [place] [address] * (ABNORMAL) URINALYSIS (03/30/2020 6:46 PM EST) UA Color Yellow 03/30/2020 7:15 PM EST [facility] UA Appear Cloudy(A) Clear 03/30/2020 7:15 PM EST [facility] UA Glucose Negative Negative mg/dL 03/30/2020 7:15 PM EST [facility] UA Ketones Negative Negative mg/dL 03/30/2020 7:15 PM EST [facility] UA Blood 2+ (0.2 - 0.5 mg/dL)(A) Negative 03/30/2020 7:15 PM EST [facility] UA pH 7.0 5.0 - 8.0 pH 03/30/2020 7:15 PM EST [facility] UA Protein 1+ (30-70 mg/dL)(A) Negative mg/dL 03/30/2020 7:15 PM EST [facility] UA Urobilinogen Normal <=1 mg/dL 0 7:15 PM EST [facility] UA Bili Negative Negative 03/30/2020 7:15 PM EST [facility] UA Nitrite Negative Negative 03/30/2020 7:15 PM EST [facility] UA Leuk Est Negative Negative 03/30/2020 7:15 PM EST [facility] UA Spec Grav 1.034 1.001 - 1.035 no units 03/30/2020 7:15 PM EST [facility] Comment:Reference range kp d for random specimens only. UA WBC 0 0 - 4 /HPF 03/30/2020 7:15 PM EST [facility] UA RBC 35(H) 0 - 3 /HPF 03/30/2020 7:15 PM EST [facility] UA Squam Epi 4+ /LPF 03/30/2020 7:15 PM EST [facility] UA Mucus Trace /LPF 03/30/2020 7:15 PM EST [facility] Urine URINE SPECIMEN COLLECTION, CLEAN CATCH / Unknown 03/30/2020 6:46 PM EST 03/30/2020 6:57 PM EST us Columba Mcgill ADMINISTRATIVE TECHNICIAN URINE ORDERABLES Final Re sult [facility] [address] [facility] , [address] [place] [id number] documented in this encounter Visit Diagnoses Diagnosis Vaginal bleeding in - Primary Unspecified antepartum hemorrhage, unspecified as to episode of care Bacterial vaginosis in documented in this encounter Orders Nursing Count Last Ordered Date First Orde red Date SET UP FOR PELVIC EXAM 1 03/30/2020 documented in this encounter Additional Health Concerns Assessment Noted Time PHQ-9 Depression Total Score: 22 019 9:00 AM EDT PHQ-2 Depression Total Score: 6 08/27/19 19 9:00 AM EDT documented as of this encounter Care Teams Director Of People Relationship Specialty Start Date End Date Nehemias Barron MD [address] [facility] [place] [address] PCP - General 12/01/10 Easton Thompson MD [address] [place] [address] [address] [place] [address] Physician Obstetrics & Gynecology 01/29/14 Radha Wild APRN [address] [facility] [address] Nurse Practitioner 11/04/15 documented as of this encounter
--- OUTSIDE RECORDS SUMMARY | 2024-03-07 05:05 | XMS_ITS | Encounter Summary ---
Author Organization [place] [address] Care Team Providers Care Manager Acute Name Role Phone Nehemias Barron MD Primary Care Provider [phone] Easton Thompson MD Unavailable [phone] Radha Wild APRN Unavailable [phone] Reason for Referral * MRI/CAT Scan (Emergency) - Closed Specialty Diagnoses / Procedures Referred By Contac t Referred To Contact Radiology Diagnoses Abdominal pain, RLQ (right lower quadrant) Right flank pain Procedures CT ABDOMEN PELVIS WO ORAL OR IV CONTRAST Nehemias Barron MD [address] [place] [address] Phone: tel: fax: [facility] [address] [place] [address] Referral ID Status Reason Start Date Expiration Date Visits Re quested Visits Authorized [id number] Closed 10/31/2020 10/31/2021 1 1 Reason for Visit * MRI/CAT Scan (Emergency) - Closed Specialty Diagnoses / Procedures Referred By Contac t Referred To Contact Radiology Diagnoses Abdominal pain, RLQ (right lower quadrant) Right flank pain Procedures CT ABDOMEN PELVIS WO ORAL OR IV CONTRAST Nehemias Barron MD [address] [place] [address] Phone: tel: fax: [facility] [address] [place] [address] Referral ID Status Reason Start Date Expiration Date Visits Re quested Visits Authorized [id number] Closed 10/31/2020 10/31/2021 1 1 Encounter Details Date Type Department Care Team (Latest Contact Info) Description 10/31/2020 2:30 PM EDT - 10/31/2020 11:59 PM EDT Hospital Encounter [facility] [address] [place] [address] Nehemias Barron MD [address] [place] [address] Abdominal pain, RLQ (right lower quadrant); Right flank pain Discharge Disposition: Home or Self Care [...] Procedure Name Priority Date/Time Associated Diagnosis Comments CT ABDOMEN PELVIS WO ORAL OR IV CONTRAST STAT 10/31/2020 2:52 PM EDT Abdominal pain, RLQ (right lower quadrant) Right flank pain documented in this encounter Results * CT ABDOMEN PELVIS WO ORAL OR IV CONTRAST (10/31/2020 2:52 PM EDT) Anatomical Region Laterality Modality Abdomen, Pelvis Computed Tomogra phy 10/31/2020 2:52 PM EDT Impressions 10/31/2020 3:03 PM EDT No acute abnormality of the unenhanced abdomen or pelvis. No hydronephrosis. No evidence of appendicitis. - Note: Radiology results need to be interpreted within a comprehensive clinical context. ??If you have questions about the radiology report, please contact the office of the ordering clinician. Narrative 10/31/2020 3:[address] ABDOMEN AND PELVIS WITHOUT IV OR ORAL CONTRAST, ??10/31/2020 2:52 PM CLINICAL HISTORY: ??R10.31-Right lower quadrant [id number]-ZOM-90-CM R10.9-Unspecified abdominal [id number]-LQQ-26-CM. COMPARISON: ??None. PROCEDURE COMMENTS: Multidetector CT examination of the abdomen and pelvis without IV or oral contrast per protocol. Multiplanar reconstructions. ??Dose 1 : CT DLP Total : 199 mGycm DLP Spiral Max : 199 mGycm Maximum CTDI Vol : 4.74 mGy SSDE : 7.6788 mGy SSDE Diameter : 22.5 cm SSDE Source : AP+Lat FINDINGS: ?? LOWER THORAX: ??Lung bases unremarkable. ABDOMEN AND PELVIS: Unenhanced liver, spleen, pancreas, adrenal glands unremarkable. Gallbladder is unremarkable. On stomach There is no hydronephrosis. There is no radiodense urolithiasis identified. Urinary bladder is unremarkable. No bowel obstruction or acute inflammatory process. No evidence of appendicitis. Pelvic viscera unremarkable. No free fluid or adenopathy. No acute osseous lesion identified. Procedure Note Binu Lynn MD - 10/31/2020 CT ABDOMEN AND PELVIS WITHOUT IV OR ORAL CONTRAST, 10/31/2020 2:52 PM CLINICAL HISTORY: R10.31-Right lower quadrant [id number]-LBS-29-CM R10.9-Unspecified abdominal mkke-LCU-37-CM. COMPARISON: None. PROCEDURE COMMENTS: Multidetector CT examination of the abdomen andpelvis without IV or oral contrast per protocol. Multiplanar reconstructions.Dose 1 : CT DLP Total : 199 mGycm DLP Spiral Max : 199 mGycm Maximum CTDI Vol : 4.74 mGy SSDE : 7.6788 mGy SSDE Diameter : 22.5 cm SSDE Source : AP+Lat FINDINGS: LOWER THORAX: Lung bases unremarkable. ABDOMEN AND PELVIS: Unenhanced liver, spleen, pancreas, adrenal glands unremarkable. Gallbladder is unremarkable. On stomach There is no hydronephrosis. There is no radiodense urolithiasisidentified. Urinary bladder is unremarkable. No bowel obstruction or acute inflammatory process. No evidence ofappendicitis. Pelvic viscera unremarkable. No free fluid or adenopathy. No acute osseous lesion identified. IMPRESSION: No acute abnormality of the unenhanced abdomen or pelvis. No hydronephrosis. No evidence of appendicitis. - Note: Radiology results need to be interpreted within a comprehensiveclinical context. If you have questions about the radiology report, please contactthe office of the ordering clinician. us Nehemias Barron MD IMG CT ORDERABLES Final Resul t documented in this encounter Visit Diagnoses Diagnosis Abdominal pain, RLQ (right lower quadrant) Abdominal pain, right lower quadrant Right flank pain Abdominal pain, unspecified site documented in this encounter Care Teams Manager Acute Relationship Specialty Start Date End Date Nehemias Barron MD [address] [place] [address] PCP - General 12/01/10 Easton Thompson MD [address] [place] [address] [address] [place] [address] Physician Obstetrics & Gynecology 01/29/14 Radha Wild APRN [address] [place] [address] Nurse Practitioner 11/04/15 documented as of this encounter
--- OUTSIDE RECORDS SUMMARY | 2024-03-07 05:05 | XMS_ITS | Encounter Summary ---
Author Organization [place] [address] Care Team Providers Care Divider Operator Name Role Phone Nehemias Barron MD Primary Care Provider [phone] Easton Thompson MD Unavailable [phone] Radha Wild TWINE WINDER Unavailable [phone] Reason for Referral * Ultrasound (Routine) - Closed Specialty Diagnoses / Procedures Referred By Eusebia t Referred To Contact Radiology Diagnoses Biliary colic Procedures US RIGHT UPPER QUADRANT Nehemias Barron MD [address] [place] [address] Phone: tel: fax: Referral ID Status Reason Start Date Expiration Date Visits Re quested Visits Authorized [id number] Closed 10/27/2020 10/27/2021 1 1 Reason for Visit * Auth/Cert/Inpt Specialty Diagnoses / Procedures Referred By Eusebia briceno Referred To Contact Diagnoses Calculus of bile duct without cholangitis or cholecystitis without obstruction Referral ID Status Reason Start Date Expiration Date Visits Re quested Visits Authorized [id number] 1 1 Encounter Details Date Type Department Care Team (Latest Contact Info) Description 10/31/2020 9:19 AM EDT - 10/31/2020 2:29 PM EDT Hospital Encounter [facility] Ultrasound [address] [place] [address] Nehemias Barron MD [address] [place] [address] Biliary colic Discharge Disposition: Home or Self Care Social [...] Name Priority Date/Time Associated Diagnosis Comments US RIGHT UPPER QUADRANT Routine 10/31/2020 9:59 AM EDT Biliary colic documented in this encounter Results * US RIGHT UPPER QUADRANT (10/31/2020 9:59 AM EDT) Anatomical Region Laterality Modality Abdomen Ultrasound 10/31/2020 9:59 AM EDT Impressions 10/31/2020 10:15 AM EDT Unremarkable right upper quadrant ultrasound. ?? - - Narrative 10/31/2020 10:15 AM EDT US RIGHT UPPER QUADRANT, ??10/31/2020 9:59 AM CLINICAL HISTORY: ??K80.50-Calculus of bile duct without cholangitis or cholecystitis without [id number]-IMB-05-CM. COMPARISON: ??None. PROCEDURE COMMENTS: Ultrasound examination of [...] bile duct without cholangitis or cholecystitis without daabyypmplb-XXA-88-CM. COMPARISON: None. PROCEDURE COMMENTS: Ultrasound examination of [...] Unremarkable right upper quadrant ultrasound. - - us Nehemias Barron MD IMG US ORDERABLES Final Resul t documented in this encounter Visit Diagnoses Diagnosis Biliary colic Calculus of gallbladder without mention of cholecystitis or obstruction documented in this encounter Care Teams Divider Operator Relationship Specialty Start Date End Date Nehemias Barron MD [address] [place] [address] PCP - General 12/01/10 Easton Thompson MD [address] [place] [address] [address] [place] [address] Physician Obstetrics & Gynecology 01/29/14 Radha Wild APRN [address] [place] [address] Nurse Practitioner 11/04/15 documented as of this encounter
--- OUTSIDE RECORDS SUMMARY | 2024-03-07 05:05 | XMS_ITS | Encounter Summary ---
Author Organization [place] [address] Care Team Providers Care Jack [employer] All Trades Name Role Phone Nehemias Barron MD Primary Care Provider [phone] Easton Thompson MD Unavailable [phone] Radha Wild APRN Unavailable [phone] Reason for Referral * MRI/CAT Scan (Emergency) - Closed Specialty Diagnoses / Procedures Referred By Contac t Referred To Contact Radiology Diagnoses Abdominal pain, RLQ (right lower quadrant) Right flank pain Procedures CT ABDOMEN PELVIS WO ORAL OR IV CONTRAST Nehemias Barron MD [address] [place] [address] Phone: tel: fax: [facility] [address] [place] [address] Referral ID Status Reason Start Date Expiration Date Visits Re quested Visits Authorized [id number] Closed 10/31/2020 10/31/2021 1 1 Reason for Visit * Reason Comments Abdominal Pain RLQ around to back Encounter Details Date Type Department Care Team (Latest Contact Info) Description 10/31/2020 1:15 PM EDT Office Visit [facility] [address] [place] [address] Nehemias Barron MD [address] [place] [address] Abdominal pain, RLQ (right lower quadrant) (Primary Dx); Right flank pain; PUD (peptic ulcer disease) Social History Tobacco Use Types Packs/Day Years [...] Sign Reading Time Taken Comments Blood Pressure 112/58 10/31/2020 1:10 PM EDT Pulse 115 10/31/2020 1:10 PM EDT Temperature 37.4 ??C (99.3 ??F) 10/31/2020 1:10 PM ED T Respiratory Rate - - Oxygen Saturation 99% 10/31/2020 1:10 PM EDT Inhaled Oxygen Concentration - - Weight 63.5 kg (140 lb) 10/31/2020 1:10 PM EDT Height 165.1 cm (5' 5 ) 10/31/2020 1:10 PM EDT Body Mass Index 23.3 10/31/2020 1:10 PM EDT documented in this encounter Functional [...] EDAnel Shipman RMA documented in this encounter Ordered Prescriptions Prescription Sig Dispense Quantity Refills Last Filled Start Date End Date sucralfate (CARAFATE) 1 gram Oral TabletIndications: PUD (peptic ulcer disease) Take 1 Tab by mouth 4 times daily. 120 Tab 10/31/2020 1 pantoprazole (PROTONIX) 40 mg Oral Tablet, Delayed Release (E.C.)Indications: PUD (peptic ulcer disease) Take 1 Tab by mouth daily. 30 Tab 2 10/31/2020 1 HYDROcodone-acetam inophen (NORCO) 5-325 mg Oral TabletIndications: Abdominal pain, RLQ (right lower quadrant),Right flank pain Take 1 Tab by mouth every 6 hours as needed for Acute Pain (R52) for up to 3 days. 12 Tab 10/31/2020 1 tamsulosin (FLOMAX) 0.4 mg Oral CapsuleIndications :Abdominal pain, RLQ (right lower quadrant),Right flank pain Take 1 Cap by mouth nightly for 10 days. 10 Cap 10/31/2020 1 documented in this encounter Progress Notes * Nehemias Barron MD - 10/31/2020 1:15 PM EDT Vitals: 10/31/20 1310 BP: 112/58 Pulse: 115 Temp: 99.3 ??F (37.4 ??C) TempSrc: Forehead SpO2: 99% Weight: 140 lb (63.5 kg) Height: 5' 5 (1.651 m) SUBJECTIVE: Chief Complaint Patient presents with ??? Abdominal Pain RLQ around to back HPI: abd pain persists Now more R lower abd rad around R back No urine issues, normal color No hx stones Review of Systems Constitutional: Negative for fatigue and unexpected weight change. Eyes: Negative for visual disturbance. Respiratory: Negative for cough and shortness of breath. Cardiovascular: Negative for chest pain, palpitations and leg swelling. Neurological: Negative for headaches. OBJECTIVE: Physical Exam Vitals signs and nursing [...] breath sounds. Abdominal: General: Abdomen is flat. There is no distension. Palpations: There is no mass. Tenderness: There is abdominal tenderness (RLQ). There is right CVA tenderness. There is no left CVA tenderness, guarding or rebound. Hernia: No hernia is present. Musculoskeletal: Right lower leg: No edema. Left [...] visit: Abdominal pain, RLQ (right lower quadrant) Right flank pain ?? Stone Check STAT CT ro stone UA unremarkable, HCG neg ADDENDUM Her non contrast CT is normal No stones specifically I reviewed her contrasted CT we received from [facility], she has a 3.5x2.5 R hemorrhagic ovarian cyst In retrospect, she has been having this pain since MAR, it began while she was in correction, intially burning, worse with spicy foods, recently she tried ibuprofen and the pain became acutely worse, she has noticed some intermittent blood in her stools lately. I suspect she has PUD. ??Will treat with carafate and protonix. ??I expect her to get better quickly. ? Ok to use the norco I prescribed if necessary, no reason to start the flomax. I discussed risks of short term opiods for pain control with patient, including sedation, nausea, constipation, addiction, avoid driving when taking. kofi queried and as expected. ?? If her pain worsens or if more significant blood in her stools, recheck immediately or to ER if severe ?? Has a GI appt upcoming to discuss hep C, I also asked her to discuss the ulcer issue with Dr So as well documented in this encounter Plan of Treatment [...] Procedure Name Priority Date/Time Associated Diagnosis Comments SEP URINALYSIS POC Routine 10/31/2020 3: 12 PM EDT Abdominal pain, RLQ (right lower quadrant) Right flank pain POCT URINE Routine 10/31/2020 1:46 PM EDT Abdominal pain, RLQ (right lower quadrant) Right flank pain URINE CULTURE (NO STAIN) Routine 10/31/2020 1:44 PM EDT Abdominal pain, RLQ (right lower quadrant) Right flank pain SEP URINALYSIS POC Routine 10/31/2020 1: 35 PM EDT Abdominal pain, RLQ (right lower quadrant) Right flank pain documented in this encounter Results * (ABNORMAL) [facility] [place] [place] URINALYSIS POC (10/31/2020 3:12 PM EDT) UA Color POC Yellow Color 10/31/2020 3:14 PM EDT [facility] UA Appear POC Clear Clear 10/31/2020 3:14 PM EDT [facility] UA Gluc POC Negative Negative mg/dL 10/31/2020 3:14 PM EDT [facility] UA Bili POC Negative Negative 10/31/2020 3:14 PM EDT [facility] UA Ketones POC Negative Negative mg/dL 10/31/2020 3:14 PM EDT [facility] UA SG POC 1.010 1.001 - 1.035 no units 10/31/2020 3:14 PM EDT [facility] UA Blood POC Trace-Intac t(A) Negative 10/31/2020 3:14 PM EDT [facility] UA pH POC 6.5 5.0 - 8.0 pH 10/31/2020 3:14 PM EDT [facility] UA Protein POC Negative Negative mg/dL 10/31/2020 3:14 PM EDT [facility] UA Urobilinogen POC 0.2 0.2, 1.0 10/31/2020 3:14 PM EDT [facility] UA Nitrite POC Negative Negative 10/31/2020 3:14 PM EDT [facility] UA Leuk Est POC Trace(A) Negative 3:14 PM EDT [facility] Urine URINE SPECIMEN COLLECTION / Unknown 10/31/2020 3:12 PM EDT 10/31/2020 3:14 PM EDT us Nehemias Barron MD POINT OF CARE TEST ORDERABLES Final Result [facility] [place] [place] [address] [place] [address] * CT ABDOMEN PELVIS WO ORAL OR [...] 2:52 PM CLINICAL HISTORY: ??R10.31-Right lower quadrant [id number]-BVW-44-CM R10.9-Unspecified abdominal iqua-QTI-85-CM. COMPARISON: ??None. PROCEDURE COMMENTS: Multidetector CT examination [...] 2:52 PM CLINICAL HISTORY: R10.31-Right lower quadrant sjnt-CFI-79-CM R10.9-Unspecified abdominal fdfd-RLO-58-CM. COMPARISON: None. PROCEDURE COMMENTS: Multidetector CT examination [...] please contactthe office of the ordering clinician. Nehemias Barron MD IMG CT ORDERABLES Final Resul t * POCT URINE (10/31/2020 1:46 PM EDT) Preg Test, Ur neg POS/NEG SEP OFFICE Lot Number [id number] SEP OFFICE Expiration Date 02/08/2022 SEP OFFICE SeriAl # SEP OFFICE Control Line Yes YES/NO SEP OFFICE 10/31/2020 1:46 PM EDT Result [facility] Nehemias Barron MD POINT OF CARE TEST ORDERABLES Final Result Performing Organization Address [facility]/ZIP Co de Phone Number SEP OFFICE * URINE CULTURE (NO STAIN) (10/31/2020 1:44 PM EDT) Culture Multiple bacterial species isolated from urine consistent with urogenital commensal organisms. 11/02/2020 11:13 AM EDT [facility] Urine URINE SPECIMEN COLLECTION, CLEAN CATCH / Unknown 10/31/2020 1:44 PM EDT 10/31/2020 1:44 PM EDT Nehemias Barron MD MICROBIOLOGY - GENERAL ORDERA BLES Final Result [facility] [address] [place] [address] , [place] [address] * (ABNORMAL) SEP URINALYSIS POC (10/31/2020 1:35 PM EDT) UA Color POC Yellow Color 10/31/2020 1:38 PM EDT [facility] [place] UA Appear POC Clear Clear 10/31/2020 1:38 PM EDT [facility] [place] UA Gluc POC Negative Negative mg/dL 10/31/2020 1:38 PM EDT [facility] [place] UA Bili POC Small(A) Negative 10/31/2020 1:38 PM EDT [facility] [place] UA Ketones POC 15(A) Negative mg/dL 10/31/2020 1:38 PM EDT [facility] [place] UA SG POC >=1.030 1.001 - 1.035 no units 10/31/2020 1:38 PM EDT [facility] [place] UA Blood POC Negative Negative 10/31/2020 1:38 PM EDT [facility] [place] UA pH POC 5.5 5.0 - 8.0 pH 10/31/2020 1:38 PM EDT [facility] [place] UA Protein POC 100(A) Negative mg/dL 10/31/2020 1:38 PM EDT [facility] [place] UA Urobilinogen POC 1.0 0.2, 1.0 10/31/2020 1:38 PM EDT [facility] [place] UA Nitrite POC Negative Negative 10/31/2020 1:38 PM EDT [facility] [place] UA Leuk Est POC Trace(A) Negative 1:38 PM EDT [facility] [place] Urine URINE SPECIMEN COLLECTION / Unknown 10/31/2020 1:35 PM EDT 10/31/2020 1:38 PM EDT us Nehemias Barron MD POINT OF CARE TEST ORDERABLES Final Result [facility] [place] [place] [facility] [place] [address] documented in this encounter Visit Diagnoses Diagnosis Abdominal pain, RLQ (right lower quadrant)- Primary Abdominal pain, right lower quadrant Right flank pain Abdominal pain, unspecified site PUD (peptic ulcer disease) Peptic ulcer, unspecified site, unspecified as acute or chronic, without mention of hemorrhage, perforation, or obstruction Abdominal pain, RLQ (right lower quadrant) Abdominal pain, right lower quadrant Right flank pain Abdominal pain, unspecified site documented in this encounter Discontinued Medications Medication Sig Discontinue Reason Start Date End Da te tamsulosin (FLOMAX) 0.4 mg Oral CapsuleIndications:Abdom inal pain, RLQ (right lower quadrant),Right flank pain Take 1 Cap by mouth nightly for 10 days. Cancelled by 10/31/2020 10/31/2020 documented as of this encounter Care Teams Jack Of All Trades Relationship Specialty Start Date End Date Nehemias Barron MD [address] [place] [address] PCP - General 12/01/10 Easton Thompson MD [address] [place] [address] [address] [place] [address] Physician Obstetrics & Gynecology 01/29/14 Radha Wild APRN [address] [place] [address] Nurse Practitioner 11/04/15 documented as of this encounter
--- OUTSIDE RECORDS SUMMARY | 2024-03-07 05:05 | XMS_ITS | Encounter Summary ---
Author Organization [facility] [place] [address] Care Team Providers Care Cost Accountant Name Role Phone Nehemias Barron MD Primary Care Provider [phone] Easton Thompson MD Unavailable [phone] Radha Wild [employer] Unavailable [phone] Encounter Details Date Type Department Care Team (Latest Contact Info) Description 04/09/2020 Travel Social History Tobacco Use Types Packs/Day [...] documented as of this encounter Care Teams Cost Accountant Relationship Specialty Start Date End Date Nehemias Barron MD [address] [place] [address] PCP - General 12/01/10 Easton Thompson MD [address] [place] [address] [address] [place] [address] Physician Obstetrics & Gynecology 01/29/14 Radha Wild APRN [address] [place] [address] Nurse Practitioner 11/04/15 documented as of this encounter
--- OUTSIDE RECORDS SUMMARY | 2024-03-07 05:05 | XMS_ITS | Encounter Summary ---
Author Organization [place] [address] Care Team Providers Care Interior Assemblies Installer Name Role Phone Nehemias Barron MD Primary Care Provider [phone] Easton Thompson MD Unavailable [phone] Radha Wild APRN Unavailable [phone] Reason for Visit * Ultrasound (Routine) - Closed Specialty Diagnoses / Procedures Referred By Contac t Referred To Contact Radiology Diagnoses Supervision of high risk in first trimester Procedures PN US < 14 WK W TRANSVAGINAL PN US OB < 14 WEEKS SINGLE OR FIRST GESTATION Tori Alamo MD Phone: tel: fax: [facility] [place] [address] Phone: tel: fax: Referral ID Status Reason Start Date Expiration Date Visits Re quested Visits Authorized [id number] Closed 03/21/2020 03/21/2021 1 1 Encounter Details Date Type Department Care Team (Latest Contact Info) Description 04/09/2020 12:43 PM EST - 04/09/2020 11:59 PM EST Hospital Encounter [facility] [place] [address] Provider, Not In Epic Supervision of high risk in first trimester Discharge Disposition: Home or Self Care Social [...] Greer CCMA documented in this encounter Discharge Disposition Disposition Code Departure Means Destination Home or Self Care documented in this encounter Plan of Treatment Not on file documented as of this encounter Goals Goal Patient Goal Type Associated Problems Recent Progress Patient-Stated? Author Maintain a healthy diet, exercise regularly and maintain an ideal body weight General No Shraddha Dolan LPN Stay Tobacco Free Lifestyle No Srhaddha Dolan LPN documented as of this encounter Procedures Procedure Name Priority Date/Time Associated Diagnosis Comments PN US < 14 WK W TRANSVAGINAL Routine 04/09/2020 1:27 PM EST Supervision of high risk in first trimester documented in this encounter Results * PN US < 14 WK W TRANSVAGINAL (04/09/2020 1:27 PM EST) Anatomical Region Laterality Modality Pelvis Ultrasound 04/09/2020 1:05 PM EST us Tori Alamo MD IMG ORDERABLES Edite d Result - Final documented in this encounter Visit Diagnoses Diagnosis Supervision of high risk in first trimester Unspecified high-risk documented in this encounter Additional Health Concerns Assessment Noted Time PHQ-9 Depression Total Score: 22 019 9:00 AM EDT PHQ-2 Depression Total Score: 6 08/27/19 19 9:00 AM EDT documented as of this encounter Care Teams Interior Assemblies Installer Relationship Specialty Start Date End Date Nehemias Barron MD [address] [place] [address] PCP - General 12/01/10 Easton Thompson MD [address] [place] [address] [address] [place] [address] Physician Obstetrics & Gynecology 01/29/14 Radha Wild APRN [address] [place] [address] Nurse Practitioner 11/04/15 documented as of this encounter
--- OUTSIDE RECORDS SUMMARY | 2024-03-07 05:05 | XMS_ITS | Encounter Summary ---
Author Organization [place] [address] Care Team Providers Care Sports Book Writer Name Role Phone Nehemias Barron MD Primary Care Provider [phone] Easton Thompson MD Unavailable [phone] Radha Wild RIGGER SUPERVISOR Unavailable [phone] Reason for Visit * Reason Onset Date Comments Other 10/29/2019 Encounter Details Date Type Department Care Team (Late st Contact Info) Description 10/29/2019 Telephone [facility] [address] [place] [address] Nehemias Barron MD [address] [place] [address] Other Social History Tobacco Use [...] encounter Miscellaneous Notes * Telephone Encounter - Mariana Greer CCMA - 11/01/2019 5:05 PM EDT Relayed message to Shon Cheney not in office. * Telephone Encounter - Jude Aldrich MD - 11/01/2019 5:03 PM EDT Would recommend she be seen in the emergency room. * Telephone Encounter - Tori Sagastume RMA - 11/01/2019 11:38 AM EDT Spoke to Shon MOORE. Stated she is inpatient presently and had 2 seizures. She was sent to the [facility] ([phone]). They prescribed Keppra 1000 mg bid. Since then she had another seizure, and is asking if we can increase it to 3 times daily. Is this something we can do? They are capable of telemedicine visits also * Telephone Encounter - Tori Sagastume RMA - 10/29/2019 4:02 PM EDT Attempted call to Shon , but is gone for the day. We can try again tomorrow before 4 pm * Telephone Encounter - Mallorie Gee MA - 10/29/2019 2:20 PM EDT The nurse at [facility] [place] needs to speak to one of Dr. Barron's MA's documented in this encounter Plan of Treatment [...] documented as of this encounter Care Teams Sports Book Writer Relationship Specialty Start Date End Date Nehemias Barron MD [address] [place] [address] PCP - General 12/01/10 Easton Thompson MD [address] [place] [address] [address] [place] [address] Physician Obstetrics & Gynecology 01/29/14 Radha Wild APRN [address] [place] [address] Nurse Practitioner 11/04/15 documented as of this encounter
--- OUTSIDE RECORDS SUMMARY | 2024-03-07 05:05 | XMS_ITS | Encounter Summary ---
Author Organization [facility] [place] [address] Care Team Providers Care Vice President Education Name Role Phone Nehemias Barron MD Primary Care Provider [phone] Easton Thompson MD Unavailable [phone] Radha Wild INTERVENTIONAL RADIOLOGIST Unavailable [phone] Encounter Details Date Type Department Care Team (Latest Contact Info) Description 03/31/2020 Travel Social History Tobacco Use Types Packs/Day [...] or suspected to have Coronavirus / COVID-19? Unable to assess 03/31/2020 8:59 AM EST documented as of this encounter [...] documented as of this encounter Care Teams Vice President Education Relationship Specialty Start Date End Date Nehemias Barron MD [address] [place] [address] PCP - General 12/01/10 Easton Thompson MD [address] [place] [address] [address] [place] [address] Physician Obstetrics & Gynecology 01/29/14 Radha Wild APRN [address] [place] [address] Nurse Practitioner 11/04/15 documented as of this encounter
--- OUTSIDE RECORDS SUMMARY | 2024-03-07 05:05 | XMS_ITS | Encounter Summary ---
Author Organization [place] [address] Care Team Providers Care Bridge Game Director Name Role Phone Nehemias Barron MD Primary Care Provider [phone] Easton Thompson MD Unavailable [phone] Radha Wild APRN Unavailable [phone] Reason for Visit * Reason Onset Date Comments ED Follow-Up Call 04/01/2020 Encounter Details Date Type Department Care Team (Late st Contact Info) Description 04/01/2020 Patient Outreach [facility] [address] [place] [address] Falguni Jung, WELLNESS AMBASSADOR Follow-Up Call Social History Tobacco Use Types [...] Mariana Greer CCMA documented in this encounter Progress Notes * Falguni Jung RN - 04/01/2020 11:47 AM EST Patient's primary number is her mother and no attempt for ED follow up given reason for ED visit. Letter sent via [employer]. documented in this encounter Plan of Treatment [...] documented as of this encounter Care Teams Bridge Game Director Relationship Specialty Start Date End Date Nehemias Barron MD 300 [facility] [place] [address] PCP - General 12/01/10 Easton Thompson MD [address] [place] [address] [address] [place] [address] Physician Obstetrics & Gynecology 01/29/14 Radha Wild APRN [address] [facility] [place] [address] Nurse Practitioner 11/04/15 documented as of this encounter
--- OUTSIDE RECORDS SUMMARY | 2024-03-07 05:05 | XMS_ITS | Encounter Summary ---
Author Organization [place] [address] Care Team Providers Care Airplane Rigger Name Role Phone Nehemias Barrno MD Primary Care Provider [phone] Easton Thompson MD Unavailable [phone] Radha Wild APRN Unavailable [phone] Reason for Visit * Reason Onset Date Comments CM- Telephonic Outreach 05/02/2020 Encounter Details Date Type Department Care Team (Late st Contact Info) Description 05/02/2020 Telephone [facility] 300 [facility] [address] Bonny Santizo, [facility] [address] [place] [address] CM- Telephonic Outreach Social History Tobacco Use [...] Telephone Encounter - Charu Laurent RN - 05/02/2020 3:04 PM EST Upon Chart review patient was on Effexor in past however per LEV Wild note (see Below) on 11/04/15 medication was D/C due to side effects. No mention of medication in remaining past notes. HPI: Was on effexor, unable to tolerate. Each time she would take felt shaky, did not like side effects.Could not tell that it was improving depression symptoms. Has tried zoloft, prozac, celexa, and wellbutrin without improvement. Recent admission for overdose/suicide attempt. States she no longer feels suicidal. Was not on medication at time of suicide attempt. Medication is listed as being filled in December and January of [address] Lieberman while in rehab. No mention of this medication however in office note from her visit with Dr. Lieberman and no recent fills found after January. DR. Aldrich advised of above information. Per Dr. Aldrich no refills to be given at this time due to inability to see patient. Last office visit noted on 08/06/2019 RN CC spoke with [place] and advised that Bonny would need to contact the office to have him placed on her ACF to receive any additional information. * Telephone Encounter - Bonny Santizo CMA - 05/02/2020 2:14 PM EST Someone by the name of Dallas Arzate has called, asking for a refill on effexor xr 75 mg on this patient, he is not on her alternate communication form, we do not have permission from patient to talk to him or have him refill medications. He is asking for this refill so the patient doesn't have topay for it while in detention, not that they won't provide the medication for her. Please advise. documented in this encounter Plan [...] documented as of this encounter Care Teams Airplane Rigger Relationship Specialty Start Date End Date Nehemias Barron MD 300 [place] [address] PCP - General 12/01/10 Easton Thompson MD [address] [place] [address] [address] [place] [address] Physician Obstetrics & Gynecology 01/29/14 Radha Wild APRN 300 [facility] [place] [address] Nurse Practitioner 11/04/15 documented as of this encounter
--- OUTSIDE RECORDS SUMMARY | 2024-03-07 05:05 | XMS_ITS | Encounter Summary ---
Author Organization [facility] [place] [address] Care Team Providers Care Product Manufacturing Professional Name Role Phone Nehemias Barron MD Primary Care Provider [phone] Easton Thompson MD Unavailable [phone] Radha Wild MACHINE OPERATOR HAY STACKER Unavailable [phone] Encounter Details Date Type Department Care Team (Latest Contact Info) Description 08/06/2019 Travel Social History Tobacco Use Types Packs/Day [...] as of this encounter Care Teams Product Manufacturing Professional Relationship Specialty Start Date End Date Nehemias Barron MD [address] [place] [address] PCP - General 12/01/10 Easton Thompson MD [address] [place] [address] [address] [place] [address] Physician Obstetrics & Gynecology 01/29/14 Radha Widl APRN [address] [facility] [place] [address] Nurse Practitioner 11/04/15 documented as of this encounter
--- OUTSIDE RECORDS SUMMARY | 2024-03-07 05:05 | XMS_ITS | Encounter Summary ---
Author Organization [place] [address] Care Team Providers Care Tobacco Sieve Operator Name Role Phone Neheimas Barron MD Primary Care Provider [phone] Easton Thompson MD Unavailable [phone] Radha Wild APRN Unavailable [phone] Reason for Visit * Reason Onset Date Comments Follow-up 10/31/2020 in severe pain Encounter Details Date Type Department Care Team (Late st Contact Info) Description 10/31/2020 Telephone [facility] 300 [facility] [place] [address] Nehemias Barron MD [address] [place] [address] Follow-up (in severe pain ) Social History Tobacco Use Types Packs/Day [...] Coronavirus / COVID-19? No / Unsure 10/31/2020 9:18 AM EDT documented as of this encounter [...] encounter Miscellaneous Notes * Telephone Encounter - Bonny Santizo CMA - 10/31/2020 10:17 AM EDT Pt needs an appt. Scheduled. * Telephone Encounter - Marely Farfan - 10/31/2020 10:06 AM EDT Patient went today and had ultrasound done at [facility] She is severe pain lower back and abdomen area right side 8 on pain scale Could doctor call in something for pain [facility] documented in this encounter Plan of Treatment [...] on filedocumented in this encounter Care Teams Tobacco Sieve Operator Relationship Specialty Start Date End Date Nehemias Barron MD [address] [place] [address] PCP - General 12/01/10 Easton Thompson MD [address] [place] [address] [address] [place] [address] Physician Obstetrics & Gynecology 01/29/14 Radha Wild APRN [address] [place] [address] Nurse Practitioner 11/04/15 documented as of this encounter
--- OUTSIDE RECORDS SUMMARY | 2024-03-07 05:05 | XMS_ITS | Encounter Summary ---
Author Organization [place] [address] Care Team Providers Care Lubrication Technician Name Role Phone Nehemias Barron MD Primary Care Provider Easton Thompson MD Unavailable [phone] Radha Wild TRAINING AND DEVELOPMENT HEAD Unavailable [phone] Encounter Details Date Type Department Care Team (Latest Contact Info) Description 08/06/2019 12:15 PM EDT Telemedicine [facility] 300 [facility] [place] [address] Nehemias Barron MD [address] [place] [address] Acute bacterial sinusitis (Primary Dx); Mild intermittent asthma with exacerbation; Exposure to COVID-19 virus; Fever, unspecified fever cause Social History Tobacco Use Types Packs/Day Years [...] No 08/26/2018 9:33 AM EDT Mariana Greer JEFFERY * Is the person blind or does he/she have serious difficulty seeing even when wearing glasses? Answer Date of Assessment Author No 08/26/2018 9:33 AM EDT Mariana Greer JEFFERY * Does this person have serious difficulty walking or climbing stairs? Answer Date of Assessment Author No 08/26/2018 9:33 AM EDT Mariana Greer Beth JEFFERY * Does this person have difficulty dressing or bathing? Answer Date of Assessment Author No 08/26/2018 9:33 AM EDT Mariana Greer JEFFERY * Because of a physical, mental or emotional condition, does this person have difficulty doing errands alone such as visiting a doctor's office or shopping? Answer Date of Assessment Author No 08/26/2018 9:33 AM EDT Mariana Greer JEFFERY documented as of this encounter Mental Status * Because of a physical, mental or emotional condition, does this person have serious difficulty concentrating, remembering or making decisions? Answer Entry Date Author No 08/26/2018 9:33 AM EDT Mariana Greer JEFFERY documented in this encounter Ordered Prescriptions Prescription Sig Dispense Quantity Refills Last Filled Start Date End Date predniSONE (DELTASONE) 20 mg Oral TabletIndications:M ild intermittent asthma with exacerbation Take 2 Tabs by mouth daily for 5 days. 10 Tab 08/06/2019 08/11/2019 cefdinir (OMNICEF) 300 mg Oral CapsuleIndications: Acute bacterial sinusitis Take 2 Caps by mouth every 24 hours for 10 days. 20 Cap 08/06/2019 08/16/2019 documented in this encounter Progress Notes * Nehemias Barron MD - 08/06/2019 12:15 PM EDT Patient presented today for routine care follow-up through a video visit. Patient has reviewed the terms and conditions of service as part of the registration for today's visit. Patient is aware thata video visit does not replace a mwop-fi-mwvk exam and further services may be necessary. I advisedthe patient that we are conducting her video visit through our office in a private space on our secure network and this video visit is being conducted in accordance with [facility] telehealth/video visit regulations. Patient had no questions prior to initiation of the visit. HPI: Exposed to COVD-19 at [facility] on 07/27/2019 Began having cough, viviane, wheezing, fever sob a few days later [facility], tested negative for COVID-19 Continues with now primarily sinus viviane, drainage, some cough occ wheezing, which she is using her inhaler for, fever to 101 F In drug tx program, needs letter regarding her current 14 day quarantine Review of Systems All other systems reviewed [...] Diagnoses and all orders for this visit: Acute bacterial sinusitis - cefdinir (OMNICEF) 300 mg Oral Capsule; Take 2 Caps by mouth every 24 hours for 10 days. Dispense: 20 Cap; Refill: 0 Mild intermittent asthma with exacerbation - predniSONE (DELTASONE) 20 mg Oral Tablet; Take 2 Tabs by mouth daily for 5 days. Dispense: 10 Tab; Refill: 0 Exposure to COVID-19 virus Fever, unspecified fever cause To remain on 14 day quarantine from exposure to COVID-19 on 07/26, this would on 08/10/2019. I d/w pt also needs to be afebrile for 72 hours and with symptom improvement to end her quarantine I will go ahead at this point and treat her with omnicef and short course of prednisone. Should continue her inhaler prn To fu if symptoms worsen or persist documented in this encounter Plan of Treatment Not on file documented as of this encounter Goals Goal Patient Goal Type Associated Problems Recent Progress Patient-Stated? Author Maintain a healthy diet, exercise regularly and maintain an ideal body weight General No Shraddha Dolan LPN Stay Tobacco Free Lifestyle No Shraddha Dolan LPN documented as of this encounter Visit Diagnoses Diagnosis Acute bacterial sinusitis- Primary Acute sinusitis, unspecified Mild intermittent asthma with exacerbation Unspecified asthma, with exacerbation Exposure to COVID-19 virus Fever, unspecified fever cause documented in this encounter Additional Health Concerns Assessment Noted Time PHQ-9 Depression Total Score: 22 019 9:00 AM EDT PHQ-2 Depression Total Score: 6 08/27/19 19 9:00 AM EDT documented as of this encounter Care Teams Lubrication Technician Relationship Specialty Start Date End Date Nehemias Barron MD [address] [place] [address] PCP - General 12/01/10 Easton Thompson MD [address] [place] [address] [address] [place] [address] Physician Obstetrics & Gynecology 01/29/14 Radha Widl APRN [address] [place] [address] Nurse Practitioner 11/04/15 documented as of this encounter
--- OUTSIDE RECORDS SUMMARY | 2024-03-07 05:05 | XMS_ITS | Encounter Summary ---
Author Organization [facility] [place] [address] Care Team Providers Care Outpatient Physical Therapist Name Role Phone Nehemias Barron MD Primary Care Provider [phone] Easton Thompson MD Unavailable [phone] Radha Wild TRIMMER MACHINE Unavailable [phone] Encounter Details Date Type Department Care Team (Latest Contact Info) Description 03/30/2020 Travel Social History Tobacco Use Types Packs/Day [...] documented as of this encounter Care Teams Outpatient Physical Therapist Relationship Specialty Start Date End Date Nehemias Barron MD [address] [place] [address] PCP - General 12/01/10 Easton Thompson MD [address] [place] [address] [address] [place] [address] Physician Obstetrics & Gynecology 01/29/14 Radha Wild APRN [address] [place] [address] Nurse Practitioner 11/04/15 documented as of this encounter
--- OUTSIDE RECORDS SUMMARY | 2024-03-07 05:05 | XMS_ITS | Encounter Summary ---
Author Organization [place] [address] Care Team Providers Care Relationship Manager Name Role Phone Nehemias Barron MD Primary Care Provider [phone] Easton Thompson MD Unavailable [phone] Radha Wild APRN Unavailable [phone] Reason for Visit * Reason Onset Date Comments CM-Resource Coordination 04/29/2020 CM-Resource Coordination 04/29/2020 dr. Benjy richter CM-Resource Coordination 04/29/2020 [facility] CM-Resource Coordination 04/29/2020 [facility] Encounter Details Date Type Department Care Team (Latest Contact Info) Description 04/29/2020 Patient Outreach [facility] [address] [place] [address] Charu Laurent, RN CM-Resource Coordination (); CM-Resource Coordination (dr. Lieberman ); CM-Resource Coordination ([facility]); CM-Resource Coordination ([facility] ) Social History Tobacco Use Types Packs/Day [...] Greer JEFFERY * Does this person have difficulty [...] Mariana Greer JEFFERY documented in this encounter Progress Notes * Charu Laurent RN - 04/29/2020 2:31 PM EST Contact: - [place] contacted today for update on refill request Outcome: - VM unable to be left with RN CC contact information requesting a return call due to VM being fullat this time Next Steps: - RN CC will follow up at later date if no response received. Notes: * Charu Laurent RN - 04/29/2020 9:54 AM EST Per chart review Patient prescribed [...] until 04/09/2020. No longer undercare of OB. * Charu Laurent RN - 04/29/2020 9:53 AM EST OSCAR QUAN contacted prescribing MD office of [facility]. OSCAR QUAN spoke with staff who confirmed patient was seen in November of 2019 and prescribed 750mg of Keppra 2 tabs BID daily. Request for release of chart records faxed to office. * Charu Laurent RN - 04/29/2020 9:51 AM EST OSCAR QUAN contacted [facility] and [place], per ER notes patient was admitted during ER visits. PER staff patient was not provided with a discharge summary or list of medications upon discharge. A request for records or medications prescribed during stay would need to be requested by patient. OSCAR QUAN was avised to contact prescribing MD. * Charu Laurent RN - 04/29/2020 9:50 AM EST OSCAR QUAN received documents from ER visit from [place], no mention of starting of Keppra in documents or listed on home medication list. * Charu Laurent RN - 04/29/2020 8:54 AM EST RN AVELINA contacted [facility] to request records from patient stay in October when she was reported to have been prescribed Keppra. RN AVELINA was advised that patient had been seen 4 times in the ER from October 09 to October 30. All reports and records of ER visits will be faxed to office for review. * Charu Laurent RN - 04/29/2020 8:51 AM EST OSCAR QUAN at the request of MD contacted [facility] to inquire into patient obstetrics care. RN CCwas advised that patient was no longer under the care of any OB. OSCAR QUAN inquired into having recordsforwarded to office for review and to be placed in patient chart. Fax number and RN AVELINA contact information provided. documented in this encounter Plan of Treatment [...] documented as of this encounter Care Teams Relationship Manager Relationship Specialty Start Date End Date Nehemias Barron MD [address] [place] [address] PCP - General 12/01/10 Easton Thompson MD [address] [place] [address] [address] [place] [address] Physician Obstetrics & Gynecology 01/29/14 Radha Wild APRN [address] [place] [address] Nurse Practitioner 11/04/15 documented as of this encounter
--- OUTSIDE RECORDS SUMMARY | 2024-03-07 05:05 | XMS_ITS | Encounter Summary ---
Author Organization [place] [address] Care Team Providers Care Pigeon Fancier Name Role Phone Nehemias Luevano MD Primary Care Provider [phone] Easton Thompson MD Unavailable [phone] Radha Wild APRN Unavailable [phone] Reason for Visit * Reason Onset Date Comments Results 10/31/2020 Encounter Details Date Type Department Care Team (Late st Contact Info) Description 10/31/2020 Telephone [facility] 300 [facility] [place] [address] Nehemias Luevano MD [address] [place] [address] Results Social History Tobacco Use Types Packs/Day Years [...] encounter Miscellaneous Notes * Telephone Encounter - Anel Hope RMA - 10/31/2020 3:[address] luevano reviewed. * Telephone Encounter - Mallorie Gee MA - 10/31/2020 3:20 PM EDT Radiology called. CT results are in epic documented in this encounter Plan of Treatment [...] on filedocumented in this encounter Care Teams Pigeon Fancier Relationship Specialty Start Date End Date Nehemias Luevano MD [address] [place] [address] PCP - General 12/01/10 Easton Thompson MD [address] [place] [address] [address] [place] [address] Physician Obstetrics & Gynecology 01/29/14 Radha Wild APRN [address] [place] [address] Nurse Practitioner 11/04/15 documented as of this encounter
--- OUTSIDE RECORDS SUMMARY | 2024-03-07 05:05 | XMS_ITS | Encounter Summary ---
Author Organization [place] [address] Care Team Providers Care Pizzamaker Name Role Phone Nehemias Barron MD Primary Care Provider Easton Thompson MD Unavailable [phone] Radha Wild APRN Unavailable [phone] Reason for Visit * Reason Onset Date Comments Orders 10/23/2020 order for ultras ound Encounter Details Date Type Department Care Team (Late st Contact Info) Description 10/23/2020 Telephone [facility] 300 [facility] [place] [address] Nehemias Barron MD [address] [place] [address] Orders (order for ultrasound) Social History Tobacco Use Types Packs/Day Years [...] Telephone Encounter - Bonny Santizo CMA - 10/23/2020 2:27 PM EDT Pt will need to be seen first, pt notified. * Telephone Encounter - Abbi Godoy - 10/23/2020 1:10 PM EDT Order Request Who is requesting the Order(s): Patient What Orders are being requested: ultrasound Reason Orders are needed/diagnosis: gall bladder--ct scan done at Er 10/22/2020--Er adv pt to call pcp to get order for US Is patient waiting at lab/hospital/facility: No Upcoming PCP appointment date: 10/27/2020 Is the patient having this done at a [facility]: Yes--pt would like to have us done same day as appt with pcp documented in this encounter Plan of Treatment [...] documented as of this encounter Care Teams Pizzamaker Relationship Specialty Start Date End Date Nehemias Barron MD [address] [place] [address] PCP - General 12/01/10 Easton Thompson MD [address] [place] [address] [address] [place] [address] Physician Obstetrics & Gynecology 01/29/14 Radha Wild APRN [address] [place] [address] Nurse Practitioner 11/04/15 documented as of this encounter
--- OUTSIDE RECORDS SUMMARY | 2024-03-07 05:05 | XMS_ITS | Encounter Summary ---
Author Organization [place] [address] Care Team Providers Care Work Order Detailer Name Role Phone Nehemias Barron MD Primary Care Provider [phone] Easton Thompson MD Unavailable [phone] Radha Wild APRN Unavailable [phone] Reason for Visit * Reason Onset Date Comments Abdominal Pain 10/31/2020 Hepatitis C 10/31/2020 Encounter Details Date Type Department Care Team (Late st Contact Info) Description 10/31/2020 Telephone SEP Gastro [facility] [address] [place] [address] Brett So MD [address] [place] [address] Abdominal Pain; Hepatitis C Social History Tobacco Use Types Packs/Day Years [...] 3:29 PM EDT Anel Hope, MALICKA * Is the person blind or does [...] encounter Miscellaneous Notes * Telephone Encounter - Helen Snyder - 11/07/2020 8:48 AM EDT Sent ClearView™ Audio message. * Telephone Encounter - Conchita Jacobs - 11/03/2020 8:54 AM EDT VM NOT SET UP, WILL TRY AGAIN LATER * Telephone Encounter - Maine Villegas MA - 10/31/2020 2:09 PM EDT Additional labs ordered. * Telephone Encounter - Conchita Jacobs - 10/31/2020 11:13 AM EDT NEW PT ABD PAIN, HEP C. NEED LABS? HAS [facility] APPT. SHE IS AWRE WE WILL CALL HER AND LET HER KNOW IF LABS ARE NEEDED PRIOR. documented in this encounter Plan of Treatment Not on file documented as of this encounter Goals Goal Patient Goal Type Associated Problems Recent Progress Patient-Stated? Author Maintain a healthy diet, exercise regularly and maintain an ideal body weight General No Shraddha Dolan LPN Stay Tobacco Free Lifestyle No Shraddha Dolan LPN documented as of this encounter Results * HEPATITIS B SURFACE ANTIGEN (11/07/2020 10:42 AM EDT) Hep Bs Ag Non-Reactiv e Non-Reacti ve 11/07/2020 3:37 PM EDT [employer] Blood VENOUS BLOOD / Unknown Venipuncture / Unknown 11/07/2020 10:42 AM EDT 11/07/2020 10:42 AM EDT us Brett So MD CHEMISTRY ORDERABLES Final R esult [employer] [facility] [address] [place] [address] , [place] [address] * HEPATITIS B SURFACE ANTIBODY (11/07/2020 10:42 AM EDT) Hep Bs Ab <3.08 mIU/mL 11/07/2020 3:37 PM EDT [employer] Comment: < 8.00 mIU/mL ? - NON [...] IMMUNOLOGY ORDERABLES Final Result Performing Organization Address [facility] Co de Phone Number [facility] [address] , [place] [address] * HEPATIC FUNCTION PANEL (11/07/2020 10:42 AM EDT) Pathologist [facility] Total Protein 7.3 6.4 - 8.3 gm/dL [...] 11/07/2020 10:42 AM EDT Brett So MD CHEMISTRY ORDERABLES Final R esult Performing Organization Address [facility] Co de Phone Number [facility] [address] , [place] [address] * HEPATITIS A ANTIBODY IGM ACUTE (11/07/2020 10:42 AM EDT) Hep A IgM Non-Reactiv e Non-Reacti ve 11/07/2020 3:37 PM EDT [facility] Blood VENOUS BLOOD / Unknown Venipuncture / Unknown 11/07/2020 10:42 AM EDT 11/07/2020 10:42 AM EDT Brett So MD IMMUNOLOGY ORDERABLES Final Result [facility] [address], [place] [address] * HCV GENOTYPE BY PCR AND SEQUENCING -REF LAB (11/07/2020 10:42 AM EDT) HCV Genotyping by PCR & Sequen 3a 11/11/2020 10:50 AM EDT [employer] Comment: INTERPRETIVE INFORMATION: ??Hepatitis C Genotyping Hepatitis C Viral RNA is tested using reverse call center rn polymerase chain reaction (RT-PCR) to amplify a specific portion of the 5' untranslated region (5' UTR) of the viral genome. The amplified nucleic acid is sequenced bi-directionally using dye-terminator chemistry (Semblee_). Sequencing data is compared to a database [...] developed and its performance characteristics determined by [employer]. It has not been cleared or approved by the [place] Food and Drug Administration. This test was performed in a CLIA certified laboratory and is intended for clinical purposes. Performed By: [facility] [address] [place] [id number] Air Drier: Prabha Lovell MD Blood VENOUS BLOOD / Unknown Venipuncture / Unknown 11/07/2020 10:42 AM EDT 11/07/2020 10:42 AM EDT us Brett So MD IMMUNOLOGY ORDERABLES Final Result [employer] [address] [place] [address] documented in this encounter Visit Diagnoses Diagnosis Chronic hepatitis C without hepatic coma (HCC)- Primary documented in this encounter Care Teams Work Order Detailer Relationship Specialty Start Date End Date Nehemias Barron MD [address] [place] [address] PCP - General 12/01/10 Easton Thompson MD [address] [place] [address] [address] [place] [address] Physician Obstetrics & Gynecology 01/29/14 Radha Wild APRN [address] [place] [address] Nurse Practitioner 11/04/15 documented as of this encounter
--- OUTSIDE RECORDS SUMMARY | 2024-03-07 05:06 | XMS_ITS | Encounter Summary ---
Author Organization [place] [address] Care Team Providers Care Cardiac Technologist Name Role Phone Nehemias Barron MD Primary Care Provider [phone] Easton Thompson MD Unavailable [phone] Radha Wild APRN Unavailable [phone] Reason for Visit * Reason Onset Date Comments Care Management - Chart Review 11/11/2016 C marina Review-Patient discharged from ED 11/10/2016 Encounter Details Date Type Department Care Team (Latest Contact Info) Description 11/11/2016 Patient Outreach [facility] [address] [place] [address] Shraddha Dolan LPN Care Management - Chart Review (Chart Review-Patient discharged from ED 11/10/2016) Social History Tobacco Use Types Packs/Day Years Used Date Smoking Tobacco: Every Day Cigarettes 1 10.5 Started: 04/11/2005; Last attempted to quit: 10/09/2015 Smokeless Tobacco: Never Alcohol Use Standard Drinks/Week Comments No 0 (1 standard drink = 0.6 oz pur e alcohol) Sexually Active Control Partners Comments Yes Male Comments No Sex and Gender Information Value Date Recorded Sex Assigned at Not on file Legal Sex Female 7:55 PM EDT Gender Identity Not on file Sexual Orientation Not on file documented as of this encounter Functional Status * Is the person deaf or does he/she have serious difficulty hearing? Answer Date of Assessment Author No 07/21/2015 5:41 PM EDT Garret Brand, RN * Is the person blind or does he/she have serious difficulty seeing even when wearing glasses? Answer Date of Assessment Author No 07/21/2015 5:41 PM EDT Garret Brand RN * Does this person have serious difficulty walking or climbing stairs? Answer Date of Assessment Author No 07/21/2015 5:41 PM EDT Garret Brand RN * Does this person have difficulty dressing or bathing? Answer Date of Assessment Author No 07/21/2015 5:41 PM EDT Garret Brand RN * Because of a physical, mental or emotional condition, does this person have difficulty doing errands alone such as visiting a doctor's office or shopping? Answer Date of Assessment Author No 07/21/2015 5:41 PM EDT Garret Brand RN documented as of this encounter Mental Status * Because of a physical, mental or emotional condition, does this person have serious difficulty concentrating, remembering or making decisions? Answer Entry Date Author No 07/21/2015 5:41 PM EDT Garret Brand RN documented in this encounter Progress Notes * Bonny Kirk RMA - 11/11/2016 9:00 AM EDT ED Follow Up Regarding the most recent emergency room visit: Contact made?: No If no, did you leave a message?: Yes Was letter sent?: Yes If patient is unable to fill medications, please consider a social work consult if criteria met: * Shraddha Dolan LPN - 11/11/2016 7:42 AM EDT [facility] reviewed chart due to ED visit (11/10/2016). Patient not a candidate to be followed by [facility]. level 1 documented in this encounter Plan of Treatment Not on file documented as of this encounter Goals Goal Patient Goal Type Associated Problems Recent Progress Patient-Stated? Author Maintain a healthy diet, exercise regularly and maintain an ideal body weight General No Kelsi, Shraddha Ellen, PRINCIPAL SOFTWARE ENGINEER Stay Tobacco Free Lifestyle No Shraddha Dolan LPN documented as of this encounter Visit Diagnoses Diagnosis Urinary tract infection without hematuria, site unspecified- Primary documented in this encounter Care Teams Cardiac Technologist Relationship Specialty Start Date End Date Nehemias Barron MD [address] [place] [address] PCP - General 12/01/10 Eastno Thompson MD [address] [place] [address] [address] [place] [address] Physician Obstetrics & Gynecology 01/29/14 Radha Wild APRN [address] [place] [address] Nurse Practitioner 11/04/15 documented as of this encounter
--- OUTSIDE RECORDS SUMMARY | 2024-03-07 05:06 | XMS_ITS | Encounter Summary ---
Author Organization [place] [address] Care Team Providers Care Chemical Processing Equipment Repairer Name Role Phone Nehemias Barron MD Primary Care Provider Easton Thompson MD Unavailable [phone] Radha Wild MEDICAL LAB DIRECTOR Unavailable [phone] Reason for Visit * Reason Comments Dental Pain C/O dental pain past 3 or 4 months , unable to find a dentist that accepts her medicaid. CPTA: Motrin 600 mg's at ~08:00 Encounter Details Date Type Department Care Team (Late st Contact Info) Description 10/07/2016 12:33 PM EDT - 10/07/2016 1:16 PM EDT [facility] [address] [place] [address] Janel Candelaria MD [address] [place] [id number] Pain, dental (Primary Dx) Discharge Disposition: Home or Self [...] Sign Reading Time Taken Comments Blood Pressure 102/69 10/07/2016 12:36 PM EDT Pulse 84 10/07/2016 12:36 PM EDT Temperature 36.7 ??C (98 ??F) 10/07/2016 12:36 PM EDT Respiratory Rate 17 10/07/2016 12:36 PM EDT Oxygen Saturation 100% 10/07/2016 12:36 PM EDT Inhaled Oxygen Concentration - - Weight 49.4 kg (109 lb) 10/07/2016 12:36 PM EDT Height 165.1 cm (5' 5 ) 10/07/2016 12:36 PM EDT Body Mass Index 18.14 10/07/2016 12:36 PM EDT documented in this encounter Functional Status * Is the person deaf or does he/she have serious difficulty hearing? Answer Date of Assessment Author No 07/21/2015 5:41 PM EDT Garret Brand RN * Is the person blind or [...] Garret Brand RN documented in this encounter Discharge Instructions * Discharge Instructions* Janel Candelaria MD - 10/07/2016 1:03 PM EDT Naprosyn for pain Keep your appointment with the dentist * Attachments The following attachments cannot be sent through Care Everywhere. * DENTAL PAIN, BKEQ-IB-CFYP (MOHAWK) documented in this encounter Medications at Time of Discharge clindamycin (CLEOCIN) 300 mg Oral Capsule Take 1 Cap by mouth 4 times daily for 10 days. 40 Cap 10/07/2016 10/17/2016 documented as of this encounter Ordered Prescriptions Prescription Sig Dispense Quantity Refills Last Filled Start Date End Date naproxen (NAPROSYN) 500 mg Oral Tablet Take 1 Tab by mouth every 12 hours as needed for Pain for up to 14 doses. 14 Tab 10/07/2016 11/10/2016 clindamycin (CLEOCIN) 300 mg Oral Capsule Take 1 Cap by mouth 4 times daily for 10 days. 40 Cap 10/07/2016 10/17/2016 documented in this encounter Discharge Disposition Disposition Code Departure Means Destination Home or Self Assisted documented in this encounter ED Notes * Janel Candelaria MD - 10/07/2016 12:28 PM EDT Images from the original note were not included. Chief Complaint Patient presents with ??? Dental Pain C/O dental pain past 3 or 4 months , unable to find a dentist that accepts her medicaid. CPTA: Motrin 600 mg's at ~08:00 The patient's 26-year-old comes in today for evaluation of dental pain. It is primarily right lowerbut some right upper. She was seen in the emergency department about 10 days ago for the same. She states she tried calling the dentist on the list given to her and no one excepts the medical card. She did call [facility] and has an appointment next Tuesday which is 5 days from today. She states she is having increasing pain. She is finished with the antibiotics. They don't seem to help. There is no relief ibuprofen. She has been having pain for about 3-4 months that she is getting progressively worse. She states sometimes the pain is so bad it makes her feel nauseated. She has not had any drainage. She does have broken teeth. She has no other complaints. Allergies Allergen Reactions ??? Citalopram Hives ??? Effexor [Venlafaxine] Nausea And Vomiting and Other (See Comments) Shaky, lightheaded ??? Sulfa (Sulfonamide Antibiotics) Swelling and Rash throat closes up, rash, and red everywhere Home Medications: Prior to Admission medications Medication Sig Start Date End Date Taking? Authorizing Provider ibuprofen (ADVIL;MOTRIN) 600 mg Oral Tablet Take 1 Tab by mouth every 8 hours as needed for Pain. Take with food 09/26/16 Yes Zara Aviles APRN SRONYX 0.1-20 mg-mcg Oral Tablet TAKE 1 TAB BY MOUTH DAILY. 09/02/16 Yes Easton Thompson MD Amoxicillin 500 mg Oral Tablet Take 1 Tab by mouth every 8 hours for 30 doses. 09/26/16 10/06/16 Zara Aviles APRN busPIRone (BUSPAR) 10 mg Oral Tablet Take 1 Tab by mouth 2 times daily. Patient not taking: Reported on 09/26/2016 12/30/15 Radha Wild APRN DULoxetine (CYMBALTA) 30 mg Oral Capsule, Delayed Release(E.C.) Take 1 Cap by mouth 2 times daily. Patient not taking: Reported on 09/26/2016 11/04/15 Radha Wild APRN Past Medical History: Past Medical History: Diagnosis [...] and never has found out cause ??? Headache ??? Knee injury chip in left knee [...] History: reports that she has been smoking Cigarettes. She started smoking about 11 years ago. She has a 8.00 pack-year smoking history. She has never used smokeless tobacco. She reports that she currently engages in sexual activity and has had male partners. She reports that she does not drink alcohol or use drugs. Family History: Family History Problem Relation Age of Onset ??? Cancer Maternal Grandmother melanoma ??? Anesth Problems Neg Hx Surgical History: Past Surgical History: Procedure Laterality Date ??? APPENDECTOMY age 7 ??? CERVIX BIOPSY 2010, 05/29/2013 ??? DILATION AND CURETTAGE OF UTERUS N/A 02/20/2014 DILATION & CURETTAGE SUCTION EVACUATION FOR MISSCARRIAGE ; Surgeon: Kash Tabares MD; Location: [facility] MAIN OR; Service: Gynecology ??? LEEP N/A 06/27/2013 LOOP EXCISION PROCEDURE (LEEP); Surgeon: Sachin Castellanos MD; Location: [facility] MAIN OR; Service: Gynecology ??? SKIN CANCER EXCISION 06/2012 melanoma back Review of Systems HENT: Positive for dental problem. All other systems reviewed and are negative. Blood pressure 102/69, pulse 84, temperature 98 ??F (36.7 ??C), temperature source Oral, resp. rate17, height 5' 5 (1.651 m), weight 109 lb (49.4 kg), last menstrual period 10/07/2016, SpO2 100 %, not currently . Physical Exam Constitutional: She is oriented to person, place, and time. She appears well- developed and well-nourished. No distress. HENT: Head: Normocephalic. Nose: Nose normal. Mouth/Throat: Eyes: Conjunctivae and EOM are normal. Pupils are equal, round, and reactive to light. Cardiovascular: Normal rate, regular rhythm, normal heart sounds and intact distal pulses. Pulmonary/Chest: Effort normal and breath sounds normal. No respiratory distress. She has no wheezes. Lymphadenopathy: She has cervical adenopathy. Neurological: She is alert and oriented to person, place, and time. Skin: Skin is warm and dry. She is not diaphoretic. Nursing note and vitals reviewed. Procedures Radiology/EKG/Labs: ED Course: Appropriate laboratory and radiology studies reviewed Patient comes in for evaluation of dental pain. She states she had no relief with the amoxicillin. She has no swelling noted. There are no flexion masses. There is some erythema of the gums. She'll be started on clindamycin. I discussed with Her that I would write for Naprosyn for pain. I explainedto her that most importantly she did need to follow-up with a dentist. She states she has an appointment in 5 days. The patient is afebrile. She can be discharged home to follow up with dentist. ED Clinical Impression: Dental pain Critical Care time Condition at Discharge/Transfer from Department: Stable This chart was completed using voice recognition technology and may contain unintended errors Laila Candelaria MD 10/07/16 1259 Laila Candelaria MD 10/07/16 1300 documented in this encounter Plan of Treatment Not on file documented as of this encounter Goals Goal Patient Goal Type Associated Problems Recent Progress Patient-Stated? Author Maintain a healthy diet, exercise regularly and maintain an ideal body weight General No Shraddha Dolan LPN Stay Tobacco Free Lifestyle No Shraddha Dolan LPN documented as of this encounter Visit Diagnoses Diagnosis Pain, dental- Primary Unspecified disorder of the teeth and supporting structures documented in this encounter Care Teams Chemical Processing Equipment Repairer Relationship Specialty Start Date End Date Nehemias Barron MD [address] [facility] [address] PCP - General 12/01/10 Easton Thompson MD [address] [place] [address] [address] [place] [address] Physician Obstetrics & Gynecology 01/29/14 Radha Wild APRN [address] [place] [address] Nurse Practitioner 11/04/15 documented as of this encounter
--- OUTSIDE RECORDS SUMMARY | 2024-03-07 05:06 | XMS_ITS | Encounter Summary ---
Author Organization [place] [address] Care Team Providers Care Medicare Compliance Auditor Name Role Phone Nehemias Barron MD Primary Care Provider Easton Thompson MD Unavailable [phone] Radha Wild APRN Unavailable [phone] Encounter Details Date Type Department Care Team (Late st Contact Info) Description 08/28/2018 Orders Only SEP [facility] [address] [place] [address] Michelle Vergara, [facility] [address] [place] [address] UTI (urinary tract infection), uncomplicated (Primary Dx) Social History Tobacco Use Types [...] Refills Last Filled Start Date End Date ciprofloxacin HCl (CIPRO) 500 mg Oral Tablet Take 1 Tab by mouth 2 times daily for 7 days. 14 Tab 08/28/2018 09/04/2018 documented in this encounter Plan of Treatment Not on file documented as of this encounter Goals Goal Patient Goal Type Associated Problems Recent Progress Patient-Stated? Author Maintain a healthy diet, exercise regularly and maintain an ideal body weight General No Shraddha Dolan LPN Stay Tobacco Free Lifestyle No Shraddha Dolan LPN documented as of this encounter Visit Diagnoses Diagnosis UTI (urinary tract infection), uncomplicated- Primary Urinary tract infection, site not specified documented in this encounter Additional Health Concerns Assessment Noted Time PHQ-9 Depression Total Score: 22 019 9:00 AM EDT PHQ-2 Depression Total Score: 6 08/27/19 19 9:00 AM EDT documented as of this encounter Care Teams Medicare Compliance Auditor Relationship Specialty Start Date End Date Nehemias Barron MD [address] [place] [address] PCP - General 12/01/10 Easton Thompson MD [address] [place] [address] [address] [place] [address] Physician Obstetrics & Gynecology 01/29/14 Radha Wild APRN [address] [place] [address] Nurse Practitioner 11/04/15 documented as of this encounter
--- OUTSIDE RECORDS SUMMARY | 2024-03-07 05:06 | XMS_ITS | Encounter Summary ---
Author Organization [place] Address [address] [facility] [place] [address] Care Team Providers Care Resident Programs Assistant Name Role Phone Nehemias Barron MD Primary Care Provider [phone] Easton Thompson MD Unavailable [phone] Radha Wild APRN Unavailable [phone] Encounter Details Date Type Department Care Team (Latest Contact Info) Description 01/04/2017 7:29 PM EDT - 01/04/2017 11:59 PM EDT Hospital Encounter EDG LAB IVORY PROCESSING [facility] [place] [address] Well adult exam; Oral contraceptive pill surveillance Discharge Disposition: Home or Self Care Social [...] Entry Date Author No 07/21/2015 5:41 PM GLORYT Garret Brand RN documented in this encounter Discharge Disposition Disposition [...] Procedure Name Priority Date/Time Associated Diagnosis Comments [facility]LL W[facility]ER CYTOLOGY REPORT Routine 01/04/2017 4 :49 PM EDT documented in this encounter Results * QUILL WINDER CYTOLOGY REPORT (01/04/2017 4:49 PM EDT) Grout Machine Operator Cytology Report ? PATIENT NAME:BONNY OLIVARES ? Grout Machine Operator Cytology Report ? Accession Number ?Collected Date/Time ? Received Date/Time ? [id number] ? 01/04/17 16:49 EDT ?01/04/17 19:50 EDT ? GY Specimen Source ? Specimen Vag/Cerv/Endocx?: Vag/Cerv/Endocerv ? Statement of Adequacy ? Satisfactory for Evaluation. ??Transformation Zone Present. ? Diagnosis ? NEGATIVE FOR INTRAEPITHELIAL LESION OR MALIGNANCY. ? Comment ? The Pap Smear is a screening test that aids in the detection of cervical ? cancer and cancer precursors. ??Both false positive and false negative ? results can occur. ??The test should be used at regular intervals, and ? positive results should be confirmed before definitive ? therapy. ? Processed using the mInfo automated cytology screening device ? (Environmental Operations). ? Production Clerk: CINDA CRAWLEY ?01/05/2017 ? Completed by: ??GEETHA Marrero ?(Electronically signed by) ?01/05/2017 ?[facility] 01/04/2017 4:49 PM EDT us Nehemias Barron MD PATHOLOGY ORDERABLES Final Re sult [facility] [address] [place] [address] documented in this encounter Visit Diagnoses Diagnosis Well adult exam Routine general medical examination at a health care facility Oral contraceptive pill surveillance Surveillance of previously prescribed contraceptive pill documented in this encounter Orders Lab Orders Without Results Count Last Ordered D ate First Ordered Date QUILL WINDER CYTOLOGY REQUEST (PAP ONLY) 1 7 documented in this encounter Care Teams Resident Programs Assistant Relationship Specialty Start Date End Date Nehemias Barron MD [address] [place] [address] PCP - General 12/01/10 Easton Thompson MD [address] [place] [address] [address] [place] [address] Physician Obstetrics & Gynecology 01/29/14 Radha Wild APRN [address] [place] [address] Nurse Practitioner 11/04/15 documented as of this encounter
--- OUTSIDE RECORDS SUMMARY | 2024-03-07 05:06 | XMS_ITS | Encounter Summary ---
Author Organization [place] [address] Care Team Providers Care Sql Database Programmer Name Role Phone Nehemias Barron MD Primary Care Provider [phone] Easton Thompson MD Unavailable [phone] Radha Wild APRN Unavailable [phone] Reason for Visit * Reason Comments Medication Refill Encounter Details Date Type Department Care Team (Late st Contact Info) Description 02/02/2017 [facility]ill [facility] [address] [place] [address] Nehemias Barron MD [address] [place] [address] Medication Refill Social History Tobacco Use [...] of Assessment Author No 07/21/2015 5:41 PM Garret Colon RN * Does this person have serious difficulty walking or climbing stairs? Answer Date of Assessment Author No 07/21/2015 5:41 PM Garret Colon RN * Does this person have difficulty dressing or bathing? Answer Date of Assessment Author No 07/21/2015 5:41 PM Garret Colon RN * Because of a physical, mental or emotional condition, does this person have difficulty doing errands alone such as visiting a doctor's office or shopping? Answer Date of Assessment Author No 07/21/2015 5:41 PM Garret Colon RN documented as of this encounter Mental Status * Because of a physical, mental or emotional condition, does this person have serious difficulty concentrating, remembering or making decisions? Answer Entry Date Author No 07/21/2015 5:41 PM Garret Colon RN documented in this encounter Plan of Treatment Not on file documented as of this encounter Goals Goal Patient Goal Type Associated Problems Recent Progress Patient-Stated? Author Maintain a healthy diet, exercise regularly and maintain an ideal body weight General No Shraddha Dolan LPN Stay Tobacco Free Lifestyle No Shraddha Dolan LPN documented as of this encounter Visit Diagnoses Diagnosis Encounter for initial prescription of contraceptive pills General counseling for prescription of oral contraceptives documented in this encounter Care Teams Sql Database Programmer Relationship Specialty Start Date End Date Nehemias Barron MD [address] [place] [address] PCP - General 12/01/10 Easton Thompson MD [address] [place] [address] [address] [place] [address] Physician Obstetrics & Gynecology 01/29/14 Radha Wild APRN [address] [place] [address] Nurse Practitioner 11/04/15 documented as of this encounter
--- OUTSIDE RECORDS SUMMARY | 2024-03-07 05:06 | XMS_ITS | Encounter Summary ---
Author Organization [place] [address] Care Team Providers Care Pallet Stone Positioner Name Role Phone Nehemias Barron MD Primary Care Provider [phone] Easton Thompson MD Unavailable [phone] Radha Wild APRN Unavailable [phone] Reason for Visit * Reason Comments Follow-up f/u on cervical dysp lasia Exposure to STD Depression Would like to be colleen k on depression meds Encounter Details Date Type Department Care Team (Latest Contact Info) Description 08/26/2018 9:30 AM EDT Office Visit [facility] [address] [facility] 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) Social History Tobacco Use Types Packs/Day [...] Sign Reading Time Taken Comments Blood Pressure 120/78 08/26/2018 9:28 AM EDT Pulse 130 08/26/2018 9:28 AM EDT Temperature 36.7 ??C (98.1 ??F) 08/26/2018 9:28 AM ED T Respiratory Rate - - Oxygen Saturation 92% 08/26/2018 9:28 AM EDT Inhaled Oxygen Concentration - - Weight 58.1 kg (128 lb) 08/26/2018 9:28 AM EDT Height - - Body Mass Index 21.3 11/10/2016 8:50 PM EDT documented in this encounter Functional [...] Refills Last Filled Start Date End Date traZODone (DESYREL) 50 mg Oral TabletIndications:I nsomnia, persistent Take 1 Tab by mouth nightly. 30 Tab 5 08/26/2018 10/15/2020 DULoxetine (CYMBALTA) 60 mg Oral Capsule, Delayed Release(E.C.)Indica tions:MDD (major depressive disorder), recurrent episode, moderate (HCC) Take 1 Cap by mouth daily. 30 Cap 5 08/26/2018 10/15/2020 documented in this encounter Progress Notes * Nehemias Barron MD - 08/26/2018 9:30 AM EDT Subjective Ms. Olivares is a 28 y.o. female here for an annual wellness physical exam. Hx cervical dysplasia Most recent pap in 2017 normal Desires STD screening Current partner recently dx genital herpes, felt to be primary outbreak Otherwise well No issues Patient Active Problem List Diagnosis ??? Syncope, vasovagal ??? RA (rheumatoid arthritis) ([facility]) ??? Lymphadenopathy, posterior cervical ??? Family history of cervical cancer ??? Cigarette nicotine dependence without complication ??? Intravenous drug abuse in remission ([facility]) ??? MDD (major depressive disorder), recurrent episode, moderate ([facility]) ??? Insomnia, persistent ??? Exposure to genital herpes ??? History of cervical dysplasia Past Medical History: Diagnosis Date ??? Anemia during ??? Bladder infection in the past ??? 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 Bronchitis, chronic ([facility]) ??? Cancer ([facility]) melanoma back ??? Cervical dysplasia 2010, 2013 ??? Depression ppd ??? Diet controlled gestational diabetes mellitus in third trimester 06/24/2015 ??? Dizziness occassional will black out, gets dizzy, has had most of her life, family MD is aware and never has found out cause ??? Headache(784.0) ??? Intravenous drug abuse in remission ([facility]) 08/26/2018 ??? Knee injury chip in left knee but has problems with both knee's ??? Melanoma in situ of back ([facility]) 06/2012 ??? Motion sickness ??? 06/2011 ??? Psoriasis ??? Psoriasis ??? RA (rheumatoid arthritis) ([facility]) ??? UTI (urinary tract infection) had about [...] MISSCARRIAGE ; Surgeon: Kash Tabares MD; Location: [facility] MAIN OR; Service: Gynecology ??? LEEP N/A 06/27/2013 LOOP EXCISION PROCEDURE (LEEP); Surgeon: Sachin Castellanos MD; Location: [facility] MAIN OR; Service: Gynecology ??? SKIN CANCER EXCISION 06/2012 melanoma back Allergies Allergen Reactions ??? Citalopram Hives ??? Effexor [Venlafaxine] Nausea And Vomiting and Other (See Comments) Shaky, lightheaded ??? Sulfa (Sulfonamide Antibiotics) Swelling and Rash throat closes up, rash, and red everywhere Current Outpatient Prescriptions on File Prior to Visit Medication Sig Dispense Refill ??? levonorgestrel-ethinyl estradiol (SRONYX) 0.1-20 mg-mcg Oral Tablet Take 1 Tab by mouth daily. (Patient not taking: Reported on 09/22/2017) 28 Tab 12 No current facility-administered medications on file prior to visit. Social History Social History ??? Marital status: Single Spouse name: N/A ??? Number of children: N/A ??? Years of education: N/A Social History Main Topics ??? Smoking status: Current Every Day Smoker Packs/day: 1.00 Years: 8.00 Types: Cigarettes Start date: 04/11/2005 Last attempt to quit: 10/09/2015 ??? Smokeless tobacco: Never Used ??? Alcohol use No ??? Drug use: No ??? Sexual activity: Yes Partners: Male Other Topics Concern ??? None Social History Narrative ??? None Family History Problem Relation Age of Onset ??? Cancer Maternal Grandmother melanoma ??? Anesth Problems Neg Hx Immunization History Administered Date(s) Administered ??? Tdap 07/15/2015 Health Maintenance Topic Date Due ??? HPV (1 - Female 3-dose series) 08/01/2007 ??? Pneumococcal Vaccine (Medium Risk) 19-64 (1 of 1 - PPSV23) 08/01/2011 ??? Annual Wellness Exam 01/04/2018 ??? Influenza Vaccine (Season Ended) 2018 ??? Cervical Cancer Screening 01/05/2020 Health Maintenance Due Topic Date Due ??? HPV (1 - Female 3-dose series) 08/01/2007 ??? Pneumococcal Vaccine (Medium Risk) 19-64 (1 of 1 - PPSV23) 08/01/2011 ??? Annual Wellness Exam 01/04/2018 Patient Care Team: Nehemias Barron MD as PCP - Easton Navarrete MD as Physician (Obstetrics & Gynecology) Radha Wild APRN (Nurse Practitioner) Review of Systems Constitutional: Negative. Negative for fatigue and unexpected weight change. HENT: Negative. Eyes: Negative. Negative for visual disturbance. Respiratory: Negative. Negative for cough and shortness of breath. Cardiovascular: Negative. Negative for chest pain, palpitations and leg swelling. Gastrointestinal: Negative. Endocrine: Negative. Genitourinary: Negative. Musculoskeletal: Negative. Skin: Negative. Allergic/Immunologic: Negative. Neurological: Negative. Negative for headaches. Hematological: Negative. Psychiatric/Behavioral: Negative. Objective BP 120/78 (BP Location: Left arm, Patient Position: Sitting) Pulse 130 Temp 98.1 ??F (36.7 ??C)(Forehead) Wt 128 lb (58.1 kg) SpO2 92% BMI 21.30 kg/m?? Physical Exam Constitutional: She is oriented to person, place, and time. She appears well- developed and well-nourished. No distress. HENT: Head: Normocephalic and atraumatic. Right Ear: External ear normal. Left Ear: External ear normal. Nose: Nose normal. Mouth/Throat: Oropharynx is clear and moist. Eyes: Pupils are equal, round, and reactive to light. Conjunctivae and EOM are normal. No scleral icterus. Neck: Normal range of motion. Neck supple. No JVD present. No tracheal deviation present. No thyromegaly present. Cardiovascular: Normal rate, regular rhythm, normal heart sounds and intact distal pulses. Exam reveals no gallop and no friction rub. No murmur heard. Pulmonary/Chest: Effort normal and breath sounds normal. No respiratory distress. She has no wheezes. She has no rales. She exhibits no tenderness. Abdominal: Soft. Bowel sounds are normal. She exhibits no distension and no mass. There is no tenderness. There is no rebound and no guarding. Musculoskeletal: Normal range of motion. She exhibits no edema or tenderness. Lymphadenopathy: She has no cervical adenopathy. Neurological: She is alert and oriented to person, place, and time. She has normal reflexes. No cranial nerve deficit. Coordination normal. Skin: Skin is warm and dry. No rash noted. No erythema. No pallor. Psychiatric: She has a normal mood and affect. Her behavior is normal. Judgment and thought contentnormal. Nursing note and vitals reviewed. Lab Results Component Value Date WBC 3.6 (L) 02/04/2016 HGB 13.8 02/04/2016 HCT 40.9 02/04/2016 PLT 201 02/04/2016 ALT 23 10/30/2015 AST 18 10/30/2015 NA 138 10/30/2015 K 4.4 10/30/2015 CL 100 10/30/2015 CREATININE 0.74 10/30/2015 BUN 12 10/30/2015 CO2 24 10/30/2015 TSH 2.070 03/22/2015 INR 1.16 (H) 01/22/2014 GLU 94 10/30/2015 TSHREFLEX 0.902 10/30/2015 Diagnoses and all orders for this visit: Annual physical exam MDD (major depressive disorder), recurrent episode, moderate (HCC) (Chronic) - DULoxetine (CYMBALTA) 60 mg Oral Capsule, Delayed Release(E.C.); Take 1 Cap by mouth daily. Dispense: 30 Cap; Refill: 5 Insomnia, persistent - traZODone (DESYREL) 50 mg Oral Tablet; Take 1 Tab by mouth nightly. 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) (Chronic) pap updated today, if normal can repeat here yearly, if abnormal to SUPPLY CHAIN TECHNICIAN for more definitive tx withhx cervical dysplasia Hx IV drug use Screen HIV, Hep C Exposure to genital HSV, no current issues or past issues with this, check HSV 1/2 titers Check GC/CHLA Back on cymbalta + trazodone for sleep Now sober, encouraged in ongoing sobriety PCM Documentation Medication Compliance: N/A not on medications Understanding of Current Medications: N/A not on any medications Medication Compliance Barriers: None or N/A Self-Management Tools: N/A, no chronic conditions Self-Management Ability: Good Willingness to Adopt Healthy Behaviors: Good Potential Barriers to completing treatment plans today: No significant barriers [facility] Flowsheet was completed/reviewed as part of today's visit. Educated patient regarding the diagnosis, medication/treatment, goals, self- management tools and instructions based on their care plan. They verbalized understanding of the education given on the After Visit Summary [AVS] for today's visit. A copy of the AVS was provided either in writing and/or via [employer]. A new medicine was prescribed during this office visit. I did discuss the reason for prescribing this new medication. I also informed of possible likely side effects, but also encouraged them to readthe medication insert that will accompany their prescription and encouraged them to discuss any questions about the insert with their pharmacist. I instructed them to call if having side effects or possible allergic reaction after taking. I also discussed the risk of stopping the medication or deviating from prescribing instructions. Dosing instructions are present on the AVS and they are aware. I inquired of any questions and answered accordingly. documented in this encounter Plan of Treatment [...] Name Priority Date/Time Associated Diagnosis Comments SCANNED RADIOLOGY REPORT 12/07/2019 1:42 PM EDT SCANNED RADIOLOGY REPORT 12/07/2019 1:42 PM EDT SCANNED RADIOLOGY REPORT 12/07/2019 1:42 PM EDT SCANNED LABS 12/07/2019 1:42 PM EDT URINE CULTURE (NO STAIN) Routine 08/26/2018 11:24 AM EDT Pyuria SUPPLY CHAIN TECHNICIAN CYTOLOGY REQUEST (PAP ONLY) Routine 08/26/2018 11:21 AM EDT Exposure to genital herpes CHLAMYDIA/GC Routine 08/26/2018 11:21 AM EDT Exposure to genital herpes [facility] SUPPLY CHAIN TECHNICIAN CYTOLOGY ORDER Routine 08/26/2018 11:21 AM EDT Exposure to genital herpes CHLAMYDIA/GC BY [facility] Routine 08/26/2018 1 1:21 AM EDT Exposure to genital herpes documented in this encounter Results * SCANNED LABS (12/07/2019 1:42 PM EDT) 12/07/2019 1:42 PM EDT us Unknown Unknown HEMATOLOGY ORDERABLES Final Resu lt * SCANNED RADIOLOGY REPORT (12/07/2019 1:42 PM EDT) Anatomical Region Laterality Modality Other 12/07/2019 1:42 PM EDT us Unknown Unknown IMG DIAGNOSTIC IMAGING ORDERABLE S Final Result * SCANNED RADIOLOGY REPORT (12/07/2019 1:42 PM EDT) Anatomical Region Laterality Modality Other 12/07/2019 1:42 PM EDT us Unknown Unknown IMG DIAGNOSTIC IMAGING ORDERABLE S Final Result * SCANNED RADIOLOGY REPORT (12/07/2019 1:42 PM EDT) Anatomical Region Laterality Modality Other 12/07/2019 1:42 PM EDT us Unknown Unknown IMG DIAGNOSTIC IMAGING ORDERABLE S Final Result * (ABNORMAL) URINE CULTURE (NO STAIN) (08/26/2018 11:24 AM EDT) Culture Positive Growth(A) 08/28/2018 12:56 PM EDT PREFERRED LAB [facility], [facility] Culture >[id number] CFU/mL Escherichia coli SUSCEPTIBI LITY RESULT 08/28/2018 12:56 PM EDT PREFERRED LAB [facility] Urine URINE SPECIMEN COLLECTION, CLEAN CATCH / Unknown 08/26/2018 11:24 AM EDT 08/26/2018 11:24 AM EDT Narrative Organism Antibiotic Method Susceptibility Escherichia coli Ampicillin SUSCEPTIBILITY RESULT <=2 ug/mL: Susceptible Escherichia coli Ampicillin/Sulbactam SUSCEPTIBILITY R ESULT <=2 ug/mL: Susceptible Escherichia coli Cefazolin SUSCEPTIBILITY RESULT <=4 ug/mL: Susceptible Escherichia coli Cefepime SUSCEPTIBILITY RESULT Escherichia coli Cefoxitin SUSCEPTIBILITY RESULT <=4 ug/mL: Susceptible Escherichia coli Ceftazidime SUSCEPTIBILITY RESULT Escherichia coli Ceftriaxone SUSCEPTIBILITY RESULT Escherichia coli Ciprofloxacin SUSCEPTIBILITY RESULT <=0.25 ug/mL: Susceptible Escherichia coli ESBL SUSCEPTIBILITY RESULT Escherichia coli Ertapenem SUSCEPTIBILITY RESULT <=0.5 ug/mL: Susceptible Escherichia coli Gentamicin SUSCEPTIBILITY RESULT <=1 ug/mL: Susceptible Escherichia coli Imipenem SUSCEPTIBILITY RESULT <=0.25 ug/mL: Susceptible Escherichia coli Levofloxacin SUSCEPTIBILITY RESULT <=0.12 ug/mL: Susceptible Escherichia coli Nitrofurantoin SUSCEPTIBILITY RESULT <=16 ug/mL: Susceptible Escherichia coli Piperacillin/Tazobactam SUSCEPTIBILIT Y RESULT <=4 ug/mL: Susceptible Escherichia coli Tobramycin SUSCEPTIBILITY RESULT <=1 ug/mL: Susceptible Escherichia coli Trimethoprim/Sulfame tho xazole SUSCEPTIBILITY RESULT <=20 ug/mL: Susceptible Nehemias Barron MD [facility] Final Result PREFERRED LAB [facility], [address] , [place] [address] * (ABNORMAL) SUPPLY CHAIN TECHNICIAN CYTOLOGY REQUEST (PAP ONLY) (08/26/2018 11:21 AM EDT) CASE REPORT Gynecologic Cytology Report ? Case: [id number] ? Authorizing Provider: ??Nehemias Barron MD ? Collected: ? 08/26/2018 1121 ? Ordering Location: ? [facility] ?Received: ?08/26/2018 1121 ? First Screen: ?Heidi, [place], [place] ? Pathologist: ? Hayley Faust MD ? Specimen: ?LIQUID-BASED PAP - CERVICAL/ENDOCERV ICAL, Cervix, Endocervical ? 08/30/2018 2:37 PM EDT [facility] PAP FINAL DIAGNOSIS Low grade squamous intraepithelial lesion(A) 08/30/2018 2:37 PM EDT [facility] OSCOPIC DESCRIPTION Microscopic examination is performed and the findings corroborate the diagnosis. 08/30/2018 2:37 PM EDT [facility] PAP SMEAR ADEQUACY Satisfactory for evaluation 08/30/2018 2:37 PM EDT [facility] ENDOCERVICAL T-ZONE Transformation zone present 08/30/2018 2:37 PM EDT [facility] EMBEDDED IMAGES 9 2:37 PM EDT [facility] PAP DISCLAIMER The Pap Smear is a screening test that aids in the detection of cervical cancer and cancer precursors. Both false positive and false negative results can occur. The test should be used at regular intervals, and positive results should be confirmed before definitive therapy. Processed using the ThinPrep [employer] Automated cytology screening device ([employer]). 08/30/2018 2:37 PM EDT [facility] ENDOCERVICAL STRUCTURE / Unknown 08/26/2018 11:21 AM EDT 08/26/2018 11:21 AM EDT us Nehemias Barron MD CYTOLOGY ORDERABLES Final Res ult [facility] [address] [place] [address] * CHLAMYDIA/GC BY [facility] (08/26/2018 11:21 AM EDT) Chlamydia trachomatis Not Detected Not Detected 08/28/2018 12:27 PM EDT PREFERRED [facility] Neisseria gonorrhoeae Not Detected Not Detected 08/28/2018 12:27 PM EDT PREFERRED [facility] Thin Prep 08/26/2018 11:2 1 AM EDT 08/26/2018 11:21 AM EDT Narrative PREFERRED Functional Neuromodulation - 08/28/2018 12:27 PM EDT Testing methodology is steamfitter mediated amplification (TMA) using the Aptima Combo 2 assay from [employer]. A negative result does not completely rule out a Chlamydia trachomatis or Neisseria gonorrhoeae infection due to potential inhibitors or levels present below the limit of detection by this assay.?? Results are dependent on proper collection and transport of specimen. This test is indicated for medical purposes only and should not be used for legal or forensic purposes. The performance characteristics of this test were validated by [facility]. This assay is FDA cleared to test the following specimens: clinician-collected endocervical, vaginal and male urethral swab specimens, patient collected vaginal specimens within a clinic setting, Thin Prep Specimens in PreservCyt Solution, and first-stream, unpreserved male urine specimens. Testing on female urine is not FDA approved by this methodology, but has been developed and validated by the [facility].?? Detailed methodology is available upon request. Nehemias Barron MD MICROBIOLOGY - GENERAL [facility]A BLES Final Result [facility] [address] [facility], [address] [place] [id number] documented in this encounter Visit Diagnoses Diagnosis Annual physical exam- Primary Routine general medical examination at a health care facility MDD (major depressive disorder), recurrent episode, moderate (HCC) Major depressive disorder, recurrent episode, moderate Insomnia, persistent Persistent disorder of initiating or maintaining sleep Exposure to genital herpes Contact with or exposure to other viral diseases Pyuria Other nonspecific finding on examination of urine History of cervical dysplasia Personal history of cervical dysplasia 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 For sleep DELETE-Duplicate 01/04/2017 08/26/2018 documented as of this encounter Historical Medications * This list may reflect changes made after this encounter. Etonogestrel (NEXPLANON) 68 mg Sdrm Implant by Subdermal route. 1 added in this encounter Additional Health Concerns Assessment Noted Time PHQ-9 Depression Total Score: 22 019 9:00 AM EDT PHQ-2 Depression Total Score: 6 08/27/19 19 9:00 AM EDT documented as of this encounter Care Teams Pallet Stone Positioner Relationship Specialty Start Date End Date Nehemias Barron MD [address] [place] [address] PCP - General 12/01/10 Easton Thompson MD [address] [place] [address] [address] [place] [address] Physician Obstetrics & Gynecology 01/29/14 Radha Wild APRN [address] [place] [address] Nurse Practitioner 11/04/15 documented as of this encounter
--- OUTSIDE RECORDS SUMMARY | 2024-03-07 05:06 | XMS_ITS | Encounter Summary ---
Author Organization [facility] [place] [address] Care Team Providers Care Peer Support Specialist Name Role Phone Nehemias Barron MD Primary Care Provider [phone] Easton Thompson MD Unavailable [phone] Radha Wild FISCAL MANAGER Unavailable [phone] Encounter Details Date Type Department Care Team (Latest Contact Info) Description 08/03/2019 Travel Social History Tobacco Use Types Packs/Day [...] filedocumented in this encounter Additional Health Concerns Infection Onset Date Last Indicated Resolved Time R/O COVID-19 08/03/2019 08/03/2019 08/04/2019 3:08 PM EDT Assessment Noted Time PHQ-9 Depression Total Score: 22 019 9:00 AM EDT PHQ-2 Depression Total Score: 6 08/27/19 19 9:00 AM EDT documented as of this encounter Care Teams Peer Support Specialist Relationship Specialty Start Date End Date Nehemias Barron MD [address] [facility] [place] [address] PCP - General 12/01/10 Easton Thompson MD [address] [place] [address] [address] [place] [address] Physician Obstetrics & Gynecology 01/29/14 Radha Wild APRN [address] [place] [address] Nurse Practitioner 11/04/15 documented as of this encounter
--- OUTSIDE RECORDS SUMMARY | 2024-03-07 05:06 | XMS_ITS | Encounter Summary ---
Author Organization [place] [address] Care Team Providers Care Residential Advisor Name Role Phone Nehemias Barron MD Primary Care Provider [phone] Easton Thompson MD Unavailable [phone] Radha Wild APRN Unavailable [phone] Encounter Details Date Type Department Care Team (Late st Contact Info) Description 02/05/2016 [facility] [place] [address] Mariana Contreras RN Social History Tobacco Use Types Packs/Day Years Used Date Smoking Tobacco: Former Cigarettes 1 10.5 0 04/11/2005 - 10/09/2015 Smokeless Tobacco: Never Comments:info refused Alcohol Use Standard Drinks/Week Comments No 0 [...] Garret Brand RN documented in this encounter ED Notes * Mariana Contreras RN - 02/05/2016 1:31 PM EDT Left message for pt. Dr Hatfield requested I call her to check to see how she is doing. documented in this encounter Plan of Treatment [...] on filedocumented in this encounter Care Teams Residential Advisor Relationship Specialty Start Date End Date Nehemias Barron MD [address] [place] [address] PCP - General 12/01/10 Easton Thompson MD [address] [place] [address] [address] [place] [address] Physician Obstetrics & Gynecology 01/29/14 Radha Wild APRN [address] [place] [address] Nurse Practitioner 11/04/15 documented as of this encounter
--- OUTSIDE RECORDS SUMMARY | 2024-03-07 05:06 | XMS_ITS | Encounter Summary ---
Author Organization [place] [address] Care Team Providers Care Business Office Assistant Name Role Phone Nehemias Barron MD Primary Care Provider [phone] Easton Thompson MD Unavailable [phone] Radha Wild APRN Unavailable [phone] Reason for Referral * Ultrasound (Emergency) - Closed Specialty Diagnoses / Procedures Referred By uEsebia briceno Referred To Contact Radiology Diagnoses Pelvic pain Abnormal uterine bleeding Procedures US PELVIS AND TRANSVAGINAL NON OB COMPLETE Sage Sosa, [address] [place] [address] Phone: tel: fax: Referral ID Status Reason Start Date Expiration Date Visits Re quested Visits Authorized [id number] Closed 11/10/2016 11/10/2017 1 1 Reason for Visit * Reason Comments Pelvic Pain Pt reports that she is approx 3 weks late on her menstral cycle. She states OTC test has been negative. She reports that 1 week ago she had 1 day of dark brown vaginal bleeding with big clots and also pelvic pain. She reports the bleeding stopped, but the pelvic pain has continued. cpta none Encounter Details Date Type Department Care Team (Late st Contact Info) Description 11/10/2016 8:17 PM EDT - 11/10/2016 10:40 PM EDT [facility] [address] [facility] [place] [address] Leonardo Aguero MD [address] [place] [address] [place] [address] Pelvic pain (Primary Dx); Abnormal uterine bleeding; Urinary tract infection without hematuria, site unspecified Discharge Disposition: Home or Self Care Social [...] Sign Reading Time Taken Comments Blood Pressure 115/59 11/10/2016 8:50 PM EDT Pulse 109 11/10/2016 8:50 PM EDT Temperature 36.9 ??C (98.4 ??F) 11/10/2016 8:50 PM ED T Respiratory Rate 18 11/10/2016 8:50 PM EDT Oxygen Saturation 99% 11/10/2016 8:50 PM EDT Inhaled Oxygen Concentration - - Weight 54 kg (119 lb) 11/10/2016 8:50 PM EDT Height 165.1 cm (5' 5 ) 11/10/2016 8:50 PM EDT Body Mass Index 19.8 11/10/2016 8:50 PM EDT documented in this [...] this encounter Discharge Instructions * Discharge Instructions* Edmund Singleton MD - 11/10/2016 10:18 PM EDT Have pelvic ultrasound performed as an outpatient and follow-up with family doctor or chief clerk for the results. Take Naprosyn as needed for discomfort. Take Zofran as needed for nausea or vomiting. Had pelvic ultrasound performed in the next 1-2 days. Call [phone] to schedule this exam. * Attachments The following attachments cannot be sent through Care Everywhere. * PELVIC PAIN, FEMALE (TELUGU) * ABNORMAL UTERINE BLEEDING (TELUGU) * URINARY TRACT INFECTION, ADULT (TELUGU) documented in this encounter Medications at Time of Discharge naproxen (NAPROSYN) 500 mg Oral Tablet Take 1 Tab by mouth every 12 hours as needed for Pain for up to 14 doses. 14 Tab 11/10/2016 11/25/2016 nitrofurantoin, macrocrystal-mono hydrate, (MACROBID) 100 mg Oral Capsule Take 1 Cap by mouth 2 times daily for 7 days. 14 Cap 11/10/2016 11/17/2016 ondansetron (ZOFRAN, HYDROCHLORIDE,) 4 mg Oral Tablet Take 1 Tab by mouth every 6 hours as needed for Nausea for up to 20 doses. 20 Tab 11/10/2016 11/15/2016 documented as of this encounter Ordered Prescriptions Prescription Sig Dispense Quantity Refills Last Filled Start Date End Date nitrofurantoin, macrocrystal-monoh ydrate, (MACROBID) 100 mg Oral Capsule Take 1 Cap by mouth 2 times daily for 7 days. 14 Cap 11/10/2016 11/17/2016 ondansetron (ZOFRAN, HYDROCHLORIDE,) 4 mg Oral Tablet Take 1 Tab by mouth every 6 hours as needed for Nausea for up to 20 doses. 20 Tab 11/10/2016 11/15/2016 naproxen (NAPROSYN) 500 mg Oral Tablet Take 1 Tab by mouth every 12 hours as needed for Pain for up to 14 doses. 14 Tab 11/10/2016 11/25/2016 documented in this encounter Discharge Disposition Disposition Code Departure Means Destination Home or Self [facility] documented in this encounter ED Notes * Sage Sosa, SYSTEMS SUPPORT SPECIALIST - 11/10/2016 8:08 PM EDT Chief Complaint Patient presents with ??? Pelvic Pain Pt reports that she is approx 3 weks late on her menstral cycle. She states OTC test has been negative. She reports that 1 week ago she had 1 day of dark brown vaginal bleeding with big clots and also pelvic pain. She reports the bleeding stopped, but the pelvic pain has continued. cpta none Patient states she is usually very regular on her menstrual cycle. She had vaginal bleeding one week ago for one day with dark brown bright red blood. That menstrual bleeding was 2 weeks late for hernormal period. Signs of intermittent nausea without vomiting. No nausea at this time. She has a history of dysplasia and has had a LEEP procedure in the past. No vomiting. No recent diarrhea. Complains of intermittent pelvic cramping over the last 1 week. She is having no vaginal bleeding or discharge at this time. No recent fever. Denies dysuria or hematuria but has had urinary frequency. History provided by: Patient american sign language interpreter used: No Allergies Allergen Reactions ??? Citalopram Hives ??? Effexor [Venlafaxine] Nausea And Vomiting and Other (See Comments) Shaky, lightheaded ??? Sulfa (Sulfonamide Antibiotics) Swelling and Rash throat closes up, rash, and red everywhere Home Medications: Prior to Admission medications Medication Sig Start Date End Date Taking? Authorizing Provider busPIRone (BUSPAR) 10 mg Oral Tablet Take 1 Tab by mouth 2 times daily. Patient not taking: Reported on 09/26/2016 12/30/15 Radha Wild APRN DULoxetine (CYMBALTA) 30 mg Oral Capsule, Delayed Release(E.C.) Take 1 Cap by mouth 2 times daily. Patient not taking: Reported on 09/26/2016 11/04/15 Radha Wild APRN ibuprofen (ADVIL;MOTRIN) 600 mg Oral Tablet Take 1 Tab by mouth every 8 hours as needed for Pain. Take with food Patient not taking: Reported on 11/10/2016 09/26/16 Zara Aviles APRN naproxen (NAPROSYN) 500 mg Oral Tablet Take 1 Tab by mouth every 12 hours as needed for Pain for upto 14 doses. Patient not taking: Reported on 11/10/2016 10/07/16 Janel Candelaria MD SRONYX 0.1-20 mg-mcg Oral Tablet TAKE 1 TAB BY MOUTH DAILY. Patient not taking: Reported on 11/10/2016 09/02/16 Easton Thompson MD Past Medical History: Past Medical History: [...] has found out cause ??? Headache(784.0) ??? Knee injury chip in left knee [...] MISSCARRIAGE ; Surgeon: Kash Tabares MD; Location: [facility] MAIN OR; Service: Gynecology ??? LEEP N/A 06/27/2013 LOOP EXCISION PROCEDURE (LEEP); Surgeon: Sachin Castellanos MD; Location: [facility] MA[facility] OR; Service: Gynecology ??? SKIN CANCER EXCISION 06/2012 melanoma back Review of Systems Constitutional: Negative for chills and fever. HENT: Negative. Eyes: Negative. Respiratory: Negative for cough and shortness of breath. Cardiovascular: Negative for chest pain, palpitations and leg swelling. Gastrointestinal: Positive for nausea. Negative for abdominal pain, diarrhea and vomiting. Genitourinary: Positive for frequency, menstrual problem and pelvic pain. Negative for dysuria, hematuria, vaginal bleeding and vaginal discharge. Musculoskeletal: Negative. Skin: Negative for rash. Neurological: Negative. Psychiatric/Behavioral: Negative. All other systems reviewed and are negative. Blood pressure 115/59, pulse 109, temperature 98.4 ??F (36.9 ??C), temperature source Oral, resp. rate 18, height 5' 5 (1.651 m), weight 119 lb (54 kg), SpO2 99 %, not currently . Physical Exam Constitutional: She is oriented to person, place, and time. She appears well- developed and well-nourished. HENT: Head: Normocephalic. Neck: Normal range of motion. Neck supple. Cardiovascular: Normal rate, regular rhythm and normal heart sounds. Pulmonary/Chest: Effort normal and breath sounds normal. No respiratory distress. Abdominal: Soft. Bowel sounds are normal. She exhibits no distension. There is tenderness (Generalized lower abdominal tenderness.). Genitourinary: There is no rash, tenderness, lesion or injury on the right labia. There is no rash,tenderness, lesion or injury on the left labia. Uterus is tender. Uterus is not deviated, not enlarged and not fixed. Cervix exhibits no motion tenderness, no discharge and no friability. Right adnexum displays tenderness. Right adnexum displays no mass and no fullness. Left adnexum displays tenderness. Left adnexum displays no mass and no fullness. No erythema, tenderness or bleeding in the vagina. No foreign body in the vagina. No signs of injury around the vagina. No vaginal discharge found. Neurological: She is alert and oriented to person, place, and time. Skin: Skin is warm and dry. Psychiatric: She has a normal mood and affect. Procedures Radiology/EKG/Labs: Results for orders placed or performed during the hospital encounter of 11/10/16 TRICHOMONAS AG Result Value Ref Range Trichomonas Ag Negative HCG QUALITATIVE Result Value Ref Range HCG QUAL Negative UA is pending. ED Course: Appropriate laboratory and radiology studies reviewed Patient presents with abnormal uterine bleeding and pelvic pain. Laboratory findings noted above. Order placed in the computer for outpatient pelvic ultrasound. Instructed to have ultrasound performed in the next 1-2 days and follow-up with family doctor or chief clerk for the results. Prompt follow-up instructions given. Motrin given here. Instructed to use Naprosyn as directed. Prescription for Zofran given. Dr. Singleton to follow up on UA results and disposition the patient. ED Clinical Impression: Abnormal uterine bleeding Pelvic pain Critical Care time Condition at Discharge/Transfer from Department: Stable This chart was completed using voice recognition technology and may contain unintended errors Sage Sosa, L[address] 11/10/16 2208 Cosigned by Edmund Singleton MD at 11/10/2016 10:19 PM EDT Associated attestation - Edmund Singleton MD - 11/10/2016 10:19 PM EDT Patient presents as per the PARASITOLOGY TEACHER note. Urinalysis consistent with UTI. Culture sent. Started on Macrobid. Well-appearing at discharge. This chart was completed using voice recognition technology and may contain unintended errors documented in this encounter Plan of Treatment Scheduled Orders Name Type Priority Associated Diagnoses Orde r Schedule US PELVIS AND TRANSVAGINAL NON OB COMPLETE Imaging STAT Pelvic pain Abnormal uterine bleeding Expected: 11/11/2016, Expires: 11/10/2017 documented as of this encounter Goals Goal Patient Goal Type Associated Problems Recent Progress Patient-Stated? Author Maintain a healthy diet, exercise regularly and maintain an ideal body weight General No Shraddha Dolan LPN Stay Tobacco Free Lifestyle No Shraddha Dolan LPN documented as of this encounter Procedures Procedure Name Priority Date/Time Associated Diagnosis Comments URINALYSIS STAT 11/10/2016 9:59 PM EDT HCG QUALITATIVE STAT 11/10/2016 9:24 PM EDT CHLAMYDIA/GC BY TMA STAT 11/10/2016 9 :24 PM EDT TRICHOMONAS AG STAT 11/10/2016 9:24 PM EDT documented in this encounter Results * (ABNORMAL) URINALYSIS (11/10/2016 9:59 PM EDT) UA Color Yellow Straw [facility] UA Appear Cloudy(A) Clear [facility] UA Glucose Negative Negative [facility] UA Ketones Negative Negative [facility] UA Blood Negative Negative [facility] UA pH 6.0 5.0 - 8.0 [facility] Comment:Reference range kp d for random specimens only. UA Protein 30 mg/dl(A) Negative [facility] UA Urobilinogen 0.2 E.U./dL <=1 E.U./dL [facility] UA Nitrite Positive(A) Negative [facility] UA Leuk Est Trace(A) Negative [facility] UA Spec Grav >=1.030 1.002 - 1.030 [facility] Comment:Reference range kp d for random specimens only. UA WBC 10-20(A) 0 - 4 /HPF [facility] UA Squam Epi Rare [facility] G[facility] NT [facility] UA Mucus Trace [facility] UA Amorph Trace [facility] UA Bacteria 2+ [facility] Urine specimen (specimen) URINE SPECIMEN COLLECTION, CLEAN CATCH / Unknown 11/10/2016 9:59 PM EDT 11/10/2016 9:59 PM EDT Sage Sosa SYSTEMS SUPPORT SPECIALIST URINE ORDERABLES Final Re sult Performing Organization Address City/[facility]/ZIP Co de Phone Number [facility] [address] [place] [address] * HCG QUALITATIVE (11/10/2016 9:24 PM EDT) HCG QUAL Negative [facility] Blood specimen (specimen) 11/10/2016 9:24 PM EDT 11/10/2016 9:24 PM EDT Sage Sosa APRN CHEMISTRY ORDERABLES Edit ed Result - Final Performing Organization Address City/[facility]/ZIP Co de Phone Number [facility] [address] [place] [address] * TRICHOMONAS AG (11/10/2016 9:24 PM EDT) Trichomonas Ag Negative [facility] Vaginal 11/10/2016 9:24 PM EDT 11/10/2016 9:24 PM EDT Sage Sosa APRN MICROBIOLOGY - GENERAL OR DERABLES Final Result Performing Organization Address [facility] Co de Phone Number [facility] [address] [place] [address] * CHLAMYDIA/GC BY TMA (11/10/2016 9:24 PM EDT) Chlamydia trachomatis Negative [facility] Neisseria gonorrhoeae Negative [facility] Comment: Testing methodology is appeals specialist mediated amplification (TMA) using the Xtoneo 2 assay from [employer]@. A negative result does not completely rule out a Chlamydia trachomatis or Neisseria gonorrhoeae infection due to potential inhibitors or levels present below the limit of detection by this assay. ??Results are dependent on proper collection and transport of specimen. This test is indicated for medical purposes only and should not be used for legal or forensic purposes. The performance characteristics of this test were validated by [facility]. This assay is FDA cleared to test the following specimens: clinician-collected endocervical, vaginal and male urethral swab specimens, patient collected vaginal specimens within a clinic setting, Thin Prep Specimens in PreservCyt Solution, and first-stream, unpreserved male urine specimens. Testing on female urine is not FDA approved by this methodology, but has been developed and validated by the [facility] laboratory. ??Detailed methodology is available upon request. Vaginal 11/10/2016 9:24 PM EDT 11/11/2016 9:20 AM EDT Sage Sosa APRN MICROBIOLOGY - GENERAL OR DERABLES Final Result Performing Organization Address City/State/[facility] [place] [address] documented in this encounter Visit Diagnoses Diagnosis Pelvic pain- Primary Unspecified symptom associated with female genital organs Abnormal uterine bleeding Unspecified disorder of menstruation and other abnormal bleeding from female genital tract Urinary tract infection without hematuria, site unspecified documented in this encounter Administered Medications Inactive Administered Medications - up to 1 most recent administrations Medication Order MAR Action Action Date Dose Rate Site ibuprofen (ADVIL;MOTRIN) tablet 600 mg 600 mg, Oral, ONCE, 1 dose, On Tue11/10/16 at 2115, If patient receiving scheduled ibuprofen (Caldolor) IV, hold oral ibuprofen until IV therapy completed. Given 11/10/2016 9:23 PM EDT 600 mg nitrofurantoin (macrocrystal-monohydrate) (MACROBID) 100 mg capsule 100 mg 100 mg, Oral, ONCE, 1 dose, On Tue11/10/16 at 2245, Administer with food Given 11/10/2016 10:40 PM EDT 100 mg documented in this encounter Discontinued Medications Medication Sig Discontinue Reason Start Date End Da te naproxen (NAPROSYN) 500 mg Oral Tablet Take 1 Tab by mouth every 12 hours as needed for Pain for up to 14 doses. Cancelled by 10/07/2016 11/10/2016 documented as of this encounter Active and Recently Administered Medications Times are shown in EDT. Scheduled Medication Order 11/08/2016 11/09/2016 11/10/2016 ibuprofen (ADVIL;MOTRIN) tablet 600 mg (COMPLETED) 600 mg, Oral, ONCE, 1 dose, On Tue11/10/16 at 2115, If patient receiving scheduled ibuprofen (Caldolor) IV, hold oral ibuprofen until IV therapy completed. 2122 (Given - Provid er: So Royal RN) nitrofurantoin (macrocrystal-monohydrate) (MACROBID) 100 mg capsule 100 mg 100 mg, Oral, ONCE, 1 dose, On Tue11/10/16 at 2245, Administer with food 2240 (Given - Provid er: Tee Field RN) documented in this encounter Orders Nursing Count Last Ordered Date First Orde red Date SET UP FOR PELVIC EXAM 1 11/10/2016 documented in this encounter Care Teams Business Office Assistant Relationship Specialty Start Date End Date Nehemias Barron MD [address] [place] [address] PCP - General 12/01/10 Easton Thompson MD [address] [place] [address] [address] [place] [address] Physician Obstetrics & Gynecology 01/29/14 Radha Wild APRN [address] [place] [address] Nurse Practitioner 11/04/15 documented as of this encounter
--- OUTSIDE RECORDS SUMMARY | 2024-03-07 05:06 | XMS_ITS | Encounter Summary ---
Author Organization [place] [address] Care Team Providers Care Chemical Technician Name Role Phone Nehemias Barron MD Primary Care Provider [phone] Easton Thompson MD Unavailable [phone] Radha Wild CABLE FERRYBOAT OPERATOR Unavailable [phone] Reason for Visit * Reason Comments Medication Refill Encounter Details Date Type Department Care Team (Late st Contact Info) Description 10/04/2016 Refill [facility] [address] [place] [address] Easton Thompson MD [address] [place] [id number] Medication Refill Social History Tobacco Use Types Packs/Day Years Used Date Smoking Tobacco: Every Day Cigarettes 1 10.5 Started: 04/11/2005; Last attempted to quit: 10/09/2015 Smokeless Tobacco: Never Comments:info refused Alcohol [...] contraceptives documented in this encounter Care Teams Chemical Technician Relationship Specialty Start Date End Date Nehemias Barron MD [address] [place] [address] PCP - General 12/01/10 Easton Thompson MD [address] [place] [address] [address] [place] [address] Physician Obstetrics & Gynecology 01/29/14 Radha Wild APRN [address] [place] [address] Nurse Practitioner 11/04/15 documented as of this encounter
--- OUTSIDE RECORDS SUMMARY | 2024-03-07 05:06 | XMS_ITS | Encounter Summary ---
Author Organization [place] [address] Care Team Providers Care Customer Success Manager Name Role Phone Nehemias Barron MD Primary Care Provider [phone] Easton Thompson MD Unavailable [phone] Radha Wild BLOOD DONOR RECRUITER Unavailable [phone] Reason for Referral * Ultrasound (Emergency) - Closed Specialty Diagnoses / Procedures Referred By Contac t Referred To Contact Radiology Diagnoses Abnormal vaginal bleeding Procedures US PELVIS NON OB COMPLETE Isabel Hatfield MD [address] [place] [address] [place] [address] Phone: tel: fax: Referral ID Status Reason Start Date Expiration Date Visits Re quested Visits Authorized [id number] Closed 02/04/2016 02/03/2017 1 1 Reason for Visit * Reason Comments Abdominal Pain lower pelvic and low er back pain with intermittent vag bleeding for the last few months. unsure of or last real mentstural peroid cpta- none Back Pain Encounter Details Date Type Department Care Team (Late st Contact Info) Description 02/04/2016 4:34 PM EDT - 02/04/2016 8:42 PM EDT Emergency [facility] [place] [address] Isabel Hatfield MD [address] [place] [address] [place] [id number] Lower abdominal pain (Primary Dx); Abnormal vaginal bleeding Discharge Disposition: Home or Self Care Social [...] Sign Reading Time Taken Comments Blood Pressure 79/64 02/04/2016 8:00 PM EDT Pulse 89 02/04/2016 8:25 PM EDT Temperature 36.5 ??C (97.7 ??F) 02/04/2016 4:40 PM ED T Respiratory Rate 16 02/04/2016 8:25 PM EDT Oxygen Saturation 99% 02/04/2016 7:42 PM EDT Inhaled Oxygen Concentration - - Weight 53.1 kg (117 lb) 02/04/2016 4:40 PM EDT Height 165.1 cm (5' 5 ) 02/04/2016 4:40 PM EDT Body Mass Index 19.47 02/04/2016 4:40 PM EDT documented in this encounter Functional [...] documented in this encounter Discharge Instructions * Attachments The following attachments cannot be sent through Care Everywhere. * ABNORMAL UTERINE BLEEDING (BRITISH) documented in this encounter Discharge Disposition Disposition Code Departure Means Destination Home or Self Senior Care documented in this encounter ED Notes * Radha Burgess RN - 02/04/2016 8:[address] Hatfield aware of BP readings. In to speak with pt. No increase in dizziness with standing * Radha Burgess RN - 02/04/2016 6:30 PM EDT Report from Destinee * Isabel Hatfield MD - 02/04/2016 4:04 PM EDT Chief Complaint Patient presents with ??? Abdominal Pain lower pelvic and lower back pain with intermittent vag bleeding for the last few months. unsure of or last real mentstural peroid cpta- none ??? Back Pain HPI Comments: Patient presents to the emergency department complaining of lower abdominal pain and abnormal vaginal bleeding. Patient said the last time she can remember having a normal menstrual cycle was in October. She then had another menstrual cycle at the end of November. Since then she's had abnormal vaginal bleeding. She said that she will bleed for a few days and then it will stop. She said she started having lower abdominal pain over the last few days. She said that the pain feels like contractions. It was intermittent at first but it was constant today. She said it was worse with standing and better if she was in a position. She said the bleeding was heavier last night and she used about 9 tampons. She is gone through About 3-4 tampons today. She is not lightheaded or dizzy. Denies any nausea or vomiting or diarrhea. No urinary symptoms. No fever. She has a history of a miscarriage in the past. History of ovarian cyst. History of D&C, LEEP procedure, and appendectomy. 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 Patient is a 25 y.o. female presenting with abdominal pain and back pain. History provided by: Patient Abdominal Pain Associated symptoms: vaginal bleeding Back Pain Associated symptoms: abdominal pain Allergies Allergen Reactions ??? Citalopram Hives ??? Effexor [Venlafaxine] Nausea And Vomiting and Other (See Comments) Shaky, lightheaded ??? Sulfa (Sulfonamide Antibiotics) Swelling and Rash throat closes up, rash, and red everywhere Home Medications: Prior to Admission medications Medication Sig Start Date End Date Taking? Authorizing Provider busPIRone (BUSPAR) 10 mg Oral Tablet Take 1 Tab by mouth 2 times daily. 12/30/15 Yes Radha Wild APRN DULoxetine (CYMBALTA) 30 mg Oral Capsule, Delayed Release(E.C.) Take 1 Cap by mouth 2 times daily. 11/04/15 Yes Radha Wild APRN levonorgestrel-ethinyl estradiol (AVIANE;ALESSE;LESSINA) 0.1-20 mg-mcg Oral Tablet Take 1 Tab by mouth daily. 09/09/15 Yes Easton Thompson MD Past Medical History: Past Medical History Diagnosis Date ??? Anemia during ??? Bladder [...] before surgery Social History: reports that she quit smoking about 3 months ago. Her smoking use included Cigarettes. She started smoking about 10 years ago. She has a 8.00 pack-year smoking history. She has never used smokeless tobacco. She reports that she currently engages in sexual activity and has had male partners. She reports that she does not drink alcohol or use illicit drugs. Family History: Family History Problem Relation Age of Onset ??? Cancer Maternal Grandmother melanoma ??? Anesth Problems Neg Hx Surgical History: Past Surgical History Procedure Laterality Date ??? Appendectomy age 7 ??? Cervix biopsy 2010, 05/29/2013 ??? Skin cancer excision 06/2012 melanoma back ??? Leep N/A 06/27/2013 LOOP EXCISION PROCEDURE (LEEP); Surgeon: Sachin Castellanos MD; Location: [facility] MAIN OR; Service: Gynecology ??? Dilation and curettage of uterus N/A 02/20/2014 DILATION & CURETTAGE SUCTION EVACUATION FOR MISSCARRIAGE ; Surgeon: Kash Tabares MD; Location: [facility] MAIN OR; Service: Gynecology Review of Systems Gastrointestinal: Positive for abdominal pain. Genitourinary: Positive for vaginal bleeding. Musculoskeletal: Positive for back pain. All other systems reviewed and are negative. Blood pressure 97/69, pulse 106, temperature 97.7 ??F (36.5 ??C), temperature source Oral, resp. rate 18, height 5' 5 (1.651 m), weight 117 lb (53.1 kg), SpO2 99 %, not currently . Physical Exam Constitutional: Patient is a thin white female in no acute distress HENT: Mouth/Throat: Oropharynx is clear and moist. Eyes: Conjunctivae are normal. Pupils are equal, round, and reactive to light. No scleral icterus. Neck: Neck supple. Cardiovascular: Regular rhythm and intact distal pulses. Pulmonary/Chest: Effort normal and breath sounds normal. Abdominal: Soft. Bowel sounds are normal. There is tenderness (mild diffuse lower abdominal tenderness. No rebound or guarding.). Genitourinary: Genitourinary Comments: Normal external genitalia. There is a small amount of blood in the vault. Cervical os is closed. There is no active bleeding. Mild uterine tenderness. No significant adnexal tenderness or cervical motion tenderness. No adnexal mass Musculoskeletal: She exhibits no edema. Neurological: She is alert. Skin: Skin is warm and dry. Psychiatric: She has a normal mood and affect. Vitals reviewed. Procedures Radiology/EKG/Labs: Results for orders placed or performed during the hospital encounter of 02/04/16 TRICHOMONAS AG Result Value Ref Range Trichomonas Ag Negative GRAM STAIN Result Value Ref Range Final Mixed morphotypes consistent with bacterial vaginosis Moderate WBC's Few epithelial cells CBC WITH AUTO DIFF Result Value Ref Range WBC 3.6 (L) 4.0 - 11.0 x10(3)/mcL RBC 4.33 3.80 - 5.10 x10(6)/mcL Hgb 13.8 12.0 - 15.6 gm/dL Hct 40.9 35.7 - 45.9 % MCV 94.4 82.5 - 99.8 fL MCH 31.8 27.0 - 34.3 pg MCHC 33.7 32.1 - 35.3 gm/dL RDW 12.9 11.5 - 15.0 % Platelet 201 144 - 423 x10(3)/mcL MPV 9.1 6.8 - 10.8 fL HCG QUALITATIVE Result Value Ref Range HCG QUAL Negative DIFFERENTIAL Result Value Ref Range Neut Percent 64.8 % Lymph Percent 28.3 % [place] Percent 6.1 % Eos Percent 0.2 % Baso Percent 0.6 % Neut# 2.3 1.8 - 7.7 x10(3)/mcL Lymph# 1.0 0.6 - 4.8 x10(3)/mcL [place]# 0.2 0.0 - 1.3 x10(3)/mcL Eos# 0.0 0.0 - 0.5 x10(3)/mcL Baso# 0.0 0.0 - 0.2 x10(3)/mcL SMEAR REVIEW Result Value Ref Range Bands 1 0 - 10 % RBC Morph Normal ED Course: Patient presents to the ER with lower abdominal pain and irregular vaginal bleeding. She does not have any sign of an acute abdomen. Patient was given a liter of fluid. She is not actively bleeding here in the ER. Her H&H is stable. She was given Toradol with improvement in her discomfort. On recheck of patient's vital signs her blood pressure was low but she is not tachycardic. Patient does not feel lightheaded or dizzy. I rechecked her blood pressure myself and it was about 90 systolic. Heart rate in the 60s. Patient was advised that if she feels lightheaded or dizzy or has any heavy bleeding she should return. I have put in an order for an outpatient pelvic ultrasound. She was instructed to follow up with her CAR REPAIRER HELPER. ED Clinical Impression: 1. Lower abdominal pain 2. Abnormal vaginal bleeding Critical Care time Condition at Discharge/Transfer from Department: Stable This chart was completed using voice recognition technology and may contain unintended errors Isabel Hatfield MD 02/04/162023 Addendum: At time of discharge nursing staff rechecked the patient's blood pressure. It was 79/64. Pulse rate 85. I went back to check on the patient. I asked her how she was feeling. She said it shedoesn't feel any different than she does normally. She said she doesn't feel lightheaded or dizzy at this time. She said that she has a history of frequent fainting. She said she has been doing this since she was a teenager but they have never done any tests. She said she is having a little bit of abdominal cramping but says her pain is better than when she first came in. She does not have any peritoneal signs on her exam. Patient does not appear ill. As the patient is asymptomatic I'm going to discharge her home but advised her that if she has worsening pain, fainting, or any concerning symptoms she needs to return immediately. Isabel Hatfield MD 02/04/162051 documented in this encounter Plan of Treatment Scheduled Orders Name Type Priority Associated Diagnoses Orde r Schedule US PELVIS NON OB COMPLETE Imaging STAT Abnormal vaginal bleeding 1 Occurrences starting 02/04/2016 until 02/03/2017 documented as of this encounter Procedures Procedure Name Priority Date/Time Associated Diagnosis Comments CHLAMYDIA/GC BY TMA STAT 02/04/2016 6 :42 PM EDT TRICHOMONAS AG STAT 02/04/2016 6:42 PM EDT GRAM STAIN (STAIN ONLY) STAT 02/04/2016 6:42 PM EDT HCG QUALITATIVE Routine 02/04/2016 4:54 PM EDT SMEAR REVIEW STAT 02/04/2016 4:54 PM EDT DIFFERENTIAL STAT 02/04/2016 4:54 PM EDT CBC WITH DIFF STAT 02/04/2016 4:54 PM EDT documented in this encounter Results * GRAM STAIN (02/04/2016 6:42 PM EDT) Final Mixed morphotypes consistent with bacterial vaginosis Moderate WBC's Few epithelial cells [facility] Vaginal 02/04/2016 6:42 PM EDT 02/04/2016 6:42 PM EDT us Isabel Hatfield MD MICROBIOLOGY - GENERAL ORD ERABLES Final Result Performing Organization Address City/[facility] Co de Phone Number [facility] [address] [place] [address] * TRICHOMONAS AG (02/04/2016 6:42 PM EDT) Trichomonas Ag Negative [facility] Eric [facility] Vaginal 02/04/2016 6:42 PM EDT 02/04/2016 6:42 PM EDT us Isabel Hatfield MD MICROBIOLOGY - GENERAL ORD ERABLES Final Result [facility] [address] [place] [address] * CHLAMYDIA/GC BY TMA (02/04/2016 6:42 PM EDT) [facility] Chlamydia trachomatis Negative [facility] Neisseria gonorrhoeae Negative [facility] Comment: Testing methodology is arcade attendant mediated amplification (TMA) using the Aptima Combo 2 assay from [employer]. A negative result does not completely rule [...] characteristics of this test were validated by [facility]. This assay is FDA cleared to test the following specimens: clinician-collected endocervical, vaginal and male urethral swab specimens, patient collected vaginal specimens within a clinic setting, Thin Prep Specimens in PreservCyt Solution, and first-stream, unpreserved male urine specimens. Testing on female urine is not FDA approved by this methodology, but has been developed and validated by the [facility]. ??Detailed methodology is available upon request. Vaginal 02/04/2016 6:42 PM EDT 02/04/2016 6:42 PM EDT us Isabel Hatfield MD MICROBIOLOGY - GENERAL ORD ERABLES Final Result [facility] [address] [place] [address] * SMEAR REVIEW (02/04/2016 4:54 PM EDT) Pathologist [facility] Bands 1 0 - 10 % [facility] RBC Morph Normal [facility] Blood specimen (specimen) 02/04/2016 4:54 PM EDT 02/04/2016 5:45 PM EDT us [facility] HEMATOLOGY ORDERABL ES Final Result [facility] [address] [place] [address] * DIFFERENTIAL (02/04/2016 4:54 PM EDT) Pathologist [facility] Neut Percent 64.8 % [facility] Lymph Percent 28.3 % [facility] [place] Percent 6.1 % [facility] Eos Percent 0.2 % [facility] Baso Percent 0.6 % [facility] Neut# 2.3 1.8 - 7.7 x10(3)/mcL [facility] Lymph# 1.0 0.6 - 4.8 x10(3)/[facility] [place]# 0.2 0.0 - 1.3 x10(3)/[facility] Eos# 0.0 0.0 - 0.5 x10(3)/[facility] Baso# 0.0 0.0 - 0.2 x10(3)/[facility] Blood specimen (specimen) 02/04/2016 4:54 PM EDT 02/04/2016 5:45 PM EDT [facility] HEMATOLOGY ORDERABL ES Final Result [facility] [address] [place] [address] * HCG QUALITATIVE (02/04/2016 4:54 PM EDT) [facility] HCG QUAL Negative [facility] Blood specimen (specimen) 02/04/2016 4:54 PM EDT 02/04/2016 5:11 PM EDT Isabel Hatfield MD CHEMISTRY ORDERABLES Edite d Result - Final [facility] [address] [place] [address] * (ABNORMAL) CBC WITH AUTO DIFF (02/04/2016 4:54 PM EDT) [facility] WBC 3.6(L) 4.0 - 11.0 x10(3)/[facility] RBC 4.33 3.80 - 5.10 x10(6)/mcL [facility] Hgb 13.8 12.0 - 15.6 gm/dL [facility] Hct 40.9 35.7 - 45.9 % [facility] MCV 94.4 82.5 - 99.8 fL [facility] MCH 31.8 27.0 - 34.3 pg [facility] MCHC 33.7 32.1 - 35.3 gm/dL [facility] RDW 12.9 11.5 - 15.0 % [facility] Platelet 201 144 - 423 x10(3)/mcL [facility] MPV 9.1 6.8 - 10.8 fL [facility] Blood specimen (specimen) UPPER LIMB STRUCTURE / Unknown 02/04/2016 4:54 PM EDT 02/04/2016 5:11 PM EDT us Isabel Hatfield MD HEMATOLOGY ORDERABLES Kim billings Result Performing Organization Address City/State/[facility] Co de Phone Number [facility] [address] [place] [address] documented in this encounter Visit Diagnoses Diagnosis Lower abdominal pain- Primary Abdominal pain, other specified site Abnormal vaginal bleeding Other specified noninflammatory disorder of vagina documented in this encounter Administered Medications Inactive Administered Medications - up to 1 most recent administrations Medication Order MAR Action Action Date Dose Rate Site acetaminophen (TYLENOL) tablet 650 mg 650 mg, Oral, ONCE, 1 dose, On Tue02/04/16 at 1845, Maximum adult dose of acetaminophen is 4000 mg from all sources in 24 hours. Given 02/04/2016 7:40 PM EDT 650 mg ketorolac (TORADOL) injection 30 mg 30 mg, Intravenous, ONCE, 1 dose, On Tue02/04/16 at 1745 Given 02/04/2016 5:51 PM EDT 30 mg sodium chloride 0.9 % 1,000 mL IV bolus Intravenous, ONCE, 1 dose, On Tue02/04/16 at 1730, at 1,935.5 mL/hr IV Started 02/04/2016 5:45 PM EDT 1935.5 mL/hr documented in this encounter Active and Recently Administered Medications Times are shown in EDT. Scheduled Medication Order 02/02/2016 02/03/2016 02/04/2016 acetaminophen (TYLENOL) tablet 650 mg (COMPLETED) 650 mg, Oral, ONCE, 1 dose, On Tue02/04/16 at 1845, Maximum adult dose of acetaminophen is 4000 mg from all sources in 24 hours. 1940 (Given - Provid er: Melissa Tubbs, OSCAR) ketorolac (TORADOL) injection 30 mg (COMPLETED) 30 mg, Intravenous, ONCE, 1 dose, On Tue02/04/16 at 1745 1751 (Given - Provid er: Destinee Werner RN) sodium chloride 0.9 % 1,000 mL IV bolus (COMPLETED) Intravenous, ONCE, 1 dose, On Tue02/04/16 at 1730, at 1,935.5 mL/hr 1745 (IV Started - P rovider: Destinee Werner RN)1816 (Stopped - Provider: Melissa Tubbs RN) documented in this encounter Care Teams Customer Success Manager Relationship Specialty Start Date End Date Nehemias Barron MD [address] [place] [address] PCP - General 12/01/10 Easton Thompson MD [address] [place] [address] [address] [place] [address] Physician Obstetrics & Gynecology 01/29/14 Radha Wild APRN [address] [place] [address] Nurse Practitioner 11/04/15 documented as of this encounter
--- OUTSIDE RECORDS SUMMARY | 2024-03-07 05:06 | XMS_ITS | Encounter Summary ---
Author Organization [place] [address] Care Team Providers Care Finish Patcher Name Role Phone Nehemias Barron MD Primary Care Provider [phone] Easton Thompson MD Unavailable [phone] Radha Wild APRN Unavailable [phone] Encounter Details Date Type Department Care Team (Latest Contact Info) Description 12/30/2015 6:22 AM EDT - 12/30/2015 11:59 PM EDT Hospital Encounter [facility]G LAB IVORY PROCESSING [facility] [place] [address] Abnormal menstrual periods Discharge Disposition: Home or Self Care Social [...] Garret Brand RN documented in this encounter Medications at Time of Discharge ciprofloxacin HCl (CIPRO) 500 mg Oral TabletIndications:U TI (urinary tract infection), uncomplicated Take 1 Tab by mouth 2 times daily for 10 days. 20 Tab 12/30/2015 01/09/2016 documented as of this encounter Discharge Disposition Disposition Code Departure Means Destination Home or Self Care documented in this encounter Plan of Treatment Not on file documented as of this encounter Procedures Procedure Name Priority Date/Time Associated Diagnosis Comments ASSIGNMENT CLERK CYTOLOGY REPORT Routine 12/31/2015 6 :22 AM EDT documented in this encounter Results * ASSIGNMENT CLERK CYTOLOGY REPORT (12/31/2015 6:22 AM EDT) Section Chief Cytology Report ? PATIENT NAME:BONNY OLIVARES ? Section Chief Cytology Report ? Accession Number ?Collected Date/Time ? Received Date/Time ? [id number] ? 12/31/15 06:22 EDT ?12/31/15 14:29 EDT ? GY Specimen Source ? Specimen Vag/Cerv/Endocx?: Cervical ? Statement of Adequacy ? Unsatisfactory due to Obscuring Blood. ? Diagnosis ? UNSATISFACTORY SPECIMEN. ? Comment ? This case was not successfully Imaged due to technical reasons and was ? manually rescreened. ? NOTE: This specimen was reprocessed due to excessive blood. ? Recommend repeat for adequate Cytologic evaluation. ? Processed using the Sky[employer] automated cytology screening device ? ([place]). ? Pediatric Dental Hygienist: MISBAH, DEE ?01/06/2016 ? Completed by: ??Andreea Gordon CT ?(Electronically signed by) ?01/07/2016 ?[facility] 12/31/2015 6:22 AM EDT us Radha Wild SPRAY BLENDER PATHOLOGY ORDERABLES Kim billings Result [facility] [address] [place] [address] documented in this encounter Visit Diagnoses Diagnosis Abnormal menstrual periods documented in this encounter Care Teams Finish Patcher Relationship Specialty Start Date End Date Nehemias Barron MD [address] [place] [address] PCP - General 12/01/10 Easton Thompson MD [address] [place] [address] [address] [address] Physician Obstetrics & Gynecology 01/29/14 Radha Wild APRN [address] [place] [address] Nurse Practitioner 11/04/15 documented as of this encounter
--- OUTSIDE RECORDS SUMMARY | 2024-03-07 05:06 | XMS_ITS | Encounter Summary ---
Author Organization [facility] [address] Care Team Providers Care Cipher Expert Name Role Phone Nehemias Barron MD Primary Care Provider Easton Thompson MD Unavailable [phone] Radha Wild APRN Unavailable [phone] Reason for Visit * Reason Comments Contraception refills Developmental Dysplasia of the Hip retes ting Insomnia Encounter Details Date Type Department Care Team (Latest Contact Info) Description 01/04/2017 11:30 AM EDT Office Visit [facility] [address] [facility] [place] [address] Nehemias Barron MD [address] [place] [address] Well adult exam (Primary Dx); Oral contraceptive pill surveillance; History of cervical dysplasia; Family history of cervical cancer; Insomnia, persistent; Cigarette nicotine dependence without complication Social History Tobacco Use Types Packs/Day Years [...] Sign Reading Time Taken Comments Blood Pressure 100/62 01/04/2017 11:30 AM EDT Pulse 120 01/04/2017 11:30 AM EDT Temperature 36.9 ??C (98.4 ??F) 01/04/2017 11:30 AM E DT Respiratory Rate - - Oxygen Saturation 98% 01/04/2017 11:30 AM EDT Inhaled Oxygen Concentration - - Weight 56.7 kg (125 lb) 01/04/2017 11:30 AM EDT Height - - Body Mass Index 20.8 11/10/2016 8:50 PM EDT documented in this [...] Garret Brand RN documented in this encounter Ordered Prescriptions Prescription Sig Dispense Quantity Refills Last Filled Start Date End Date traZODone (DESYREL) 50 mg Oral TabletIndications:I nsomnia, persistent Take 1 Tab by mouth nightly. For sleep 30 Tab 12 01/04/2017 08/26/2018 levonorgestrel-ethi nyl estradiol (SRONYX) 0.1-20 mg-mcg Oral TabletIndications:O ral contraceptive pill surveillance Take 1 Tab by mouth daily. 28 Tab 12 01/04/2017 10/15/2020 documented in this encounter Progress Notes * Nehemias Barron MD - 01/04/2017 11:30 AM EDT Subjective Bonny Olivares is a 26 y.o. female Subjective Chief Complaint Patient presents with ??? Contraception refills ??? Developmental Dysplasia of the Hip retesting ??? Insomnia On ocp Doing well No issues Regular michelle well Hx cervical dysplasia sp LEEP, persists Last pap 1 yr ago Inconclusive due to too much obscuring blood Had not fu for recheck Patient Active Problem List Diagnosis ??? Syncope, vasovagal ??? RA (rheumatoid arthritis) (HCC) ??? Lymphadenopathy, posterior cervical ??? Family history of cervical cancer ??? Cigarette nicotine dependence without complication No current outpatient prescriptions on file prior to visit. No current facility-administered medications on file prior to visit. Social Social History Social History ??? Marital status: [...] Date(s) Administered ??? Tdap 07/15/2015 Health Maintenance Due Topic Date Due ??? HPV (1 of 3 - Female 3 Dose Series) 08/01/2003 ??? Pneumococcal Vaccine (Medium Risk) 19-64 (1 of 1 - PPSV23) 08/01/2011 Patient Care Team: Nehemias Barron MD as PCP - Easton Navarrete MD as Physician (Obstetrics & Gynecology) Radha Wild APRN (Nurse Practitioner) Review of Systems Constitutional: Negative. HENT: Negative. Eyes: Negative. Respiratory: Negative. Cardiovascular: Negative. Gastrointestinal: Negative. Endocrine: Negative. Genitourinary: Negative. Musculoskeletal: Negative. Skin: Negative. Allergic/Immunologic: Negative. Neurological: Negative. Hematological: Negative. Psychiatric/Behavioral: Negative. Objective Objective BP 100/62 Pulse 120 Temp 98.4 ??F (36.9 ??C) (Forehead) Wt 125 lb (56.7 kg) LMP (LMP Unknown) SpO2 98% BMI 20.80 kg/m?? Physical Exam Constitutional: She is oriented to person, place, and time. She appears well- developed and well-nourished. No distress. HENT: Head: Normocephalic and atraumatic. Right Ear: External ear normal. Left Ear: External ear normal. Nose: Nose normal. Mouth/Throat: Oropharynx is clear and moist. Eyes: Conjunctivae and EOM are normal. Pupils are equal, round, and reactive to light. No scleral icterus. Neck: Normal range of [...] There is no rebound and no guarding. Genitourinary: Genitourinary Comments: Breast exam normal B exam normal grossly Musculoskeletal: Normal range of motion. She exhibits [...] 01/22/2014 GLU 94 10/30/2015 TSHREFLEX 0.902 10/30/2015 Assessment and Plan Bonny was seen today for contraception, developmental dysplasia of the hip and insomnia. Diagnoses and all orders for this visit: Well adult exam Oral contraceptive pill surveillance - levonorgestrel-ethinyl estradiol (SRONYX) 0.1-20 mg-mcg Oral Tablet; Take 1 Tab by mouth daily. History of cervical dysplasia Family history of cervical cancer Insomnia, persistent - traZODone (DESYREL) 50 mg Oral Tablet; Take 1 Tab by mouth nightly. For sleep Cigarette nicotine dependence without complication - DC TOBACCO USE CESSATION INTERMEDIATE 3-10 MINUTES Other orders - Cancel: FLU VACCINE QUADRIVALENT (3YR+) pap smear today If persistent dysplasia, back to [employer], would need to consider PROSPER, had previously be deferred due toconsidering further children, no longer feasable sp 3 miscarriages, has 2 children thus far dw pt needs to quit smoking, estrada in light of OCP use, pt will work hard on this, 5 min spent discussing Return in about 1 year (around 01/04/2018). Patient was educated regarding the diagnosis, medication/treatment, goals, self- management tools and instructions based on their care plan. They verbalized full understanding of the education given on the After Visit Summary [AVS] for today's visit. They received a copy of the AVS in writing. A new medicine was prescribed during this [...] instructions are present on the AVS and the they are aware. I inquired of any questions and answered accordingly. A review of potential barriers to completing the above treatment plan identifies: no significant Nehemias Barron MD documented in this encounter Miscellaneous Notes * Patient Instructions - Nehemias Barron MD - 01/04/2017 12:40 PM EDT Patient Education Health Maintenance, Female Adopting a healthy lifestyle and getting preventive care can go a long way to promote health and wellness. Talk with your health care provider about what schedule of regular examinations is right foryou. This is a good chance for you to check in with your provider about disease prevention and staying healthy. In between checkups, there are plenty of things you can do on your own. Experts have done a lot of research about which lifestyle changes and preventive measures are most likely to keep you healthy. Ask your health care provider for more information. WEIGHT AND DIET Eat a healthy diet ?? Be sure to include plenty of vegetables, fruits, low-fat dairy products, and lean protein. ?? Do not eat a lot of foods high in solid fats, added sugars, or salt. ?? Get regular exercise. This is one of the most important things you can do for your health. ?? Most adults should exercise for at least 150 minutes each week. The exercise should increase your heart rate and make you sweat (moderate-intensity exercise). ?? Most adults should also do strengthening exercises at least twice a week. This is in addition tothe moderate-intensity exercise. ?? Maintain a healthy weight ?? Body mass index (BMI) is a measurement that can be used to identify possible weight problems. Itestimates body fat based on height and weight. Your health care provider can help determine your BMI and help you achieve or maintain a healthy weight. ?? For females 20 years of age and older: ?? A BMI below 18.5 is considered underweight. A BMI of 18.5 to 24.9 is normal. A BMI of 25 to 29.9 is considered overweight. A BMI of 30 and above is considered obese. ?? Watch levels of cholesterol and blood lipids ?? You should start having your blood tested for lipids and cholesterol at 20 years of age, then have this test every 5 years. ?? You may need to have your cholesterol levels checked more often if: ?? Your lipid or cholesterol levels are high. ?? You are older than 50 years of age. ?? You are at high risk for heart disease. ?? CANCER SCREENING ? Lung Cancer ?? Lung cancer screening is recommended for adults 55-80 years old who are at high risk for lung cancer because of a history of smoking. ?? A yearly low-dose CT scan of the lungs is recommended for people who: ?? Currently smoke. ?? Have quit within the past 15 years. ?? Have at least a [id number]-[id number] history of smoking. A pack year is smoking an average of one pack of cigarettes a day for 1 year. ?? Yearly screening should continue until it has been 15 years since you quit. ?? Yearly screening should stop if you develop a health problem that would prevent you from having lung cancer treatment. ?? Breast Cancer ?? Practice breast self-awareness. This means understanding how your breasts normally appear and feel. ?? It also means doing regular breast self-exams. Let your health care provider know about any changes, no matter how small. ?? If you are in your 20s or 30s, you should have a clinical breast exam (CBE) by a health care provider every 1-3 years as part of a regular health exam. ?? If you are 40 or older, have a CBE every year. Also consider having a breast X-ray (mammogram) every year. ?? If you have a family history of breast cancer, talk to your health care provider about genetic screening. ?? If you are at high risk for breast cancer, talk to your health care provider about having an MRIand a mammogram every year. ?? Breast cancer gene (BRCA) assessment is recommended for women who have family members with BRCA-related cancers. BRCA-related cancers include: ?? Breast. ?? Ovarian. ?? Tubal. ?? Peritoneal cancers. ?? Results of the assessment will determine the need for genetic counseling and BRCA1 and BRCA2 testing. Cervical Cancer Your health care provider may recommend that you be screened regularly for cancer of the pelvic organs (ovaries, uterus, and vagina). This screening involves a pelvic examination, including checking for microscopic changes to the surface of your cervix (Pap test). You may be encouraged to have thisscreening done every 3 years, beginning at age 21. ?? For women ages 30-65, health care providers may recommend pelvic exams and Pap testing every 3 years, or they may recommend the Pap and pelvic exam, combined with testing for human papilloma virus(HPV), every 5 years. Some types of HPV increase your risk of cervical cancer. Testing for HPV may also be done on women of any age with unclear Pap test results. ?? Other health care providers may not recommend any screening for non women who are considered low risk for pelvic cancer and who do not have symptoms. Ask your health care provider if a screening pelvic exam is right for you. ?? If you have had past treatment for cervical cancer or a condition that could lead to cancer, youneed Pap tests and screening for cancer for at least 20 years after your treatment. If Pap tests have been discontinued, your risk factors (such as having a new sexual partner) need to be reassessed to determine if screening should resume. Some women have medical problems that increase the chance of getting cervical cancer. In these cases, your health care provider may recommend more frequent screening and Pap tests. Colorectal Cancer ?? This type of cancer can be detected and often prevented. ?? Routine colorectal cancer screening usually begins at 50 years of age and continues through 75 years of age. ?? Your health care provider may recommend screening at an earlier age if you have risk factors forcolon cancer. ?? Your health care provider may also recommend using home test kits to check for hidden blood in the stool. ?? A small camera at the end of a tube can be used to examine your colon directly (sigmoidoscopy orcolonoscopy). This is done to check for the earliest forms of colorectal cancer. ?? Routine screening usually begins at age 50. ?? Direct examination of the colon should be repeated every 5-10 years through 75 years of age. However, you may need to be screened more often if early forms of precancerous polyps or small growths are found. Skin Cancer ?? Check your skin from head to toe regularly. ?? Tell your health care provider about any new moles or changes in moles, especially if there is achange in a mole's shape or color. ?? Also tell your health care provider if you have a mole that is larger than the size of a pencil eraser. ?? Always use sunscreen. Apply sunscreen liberally and repeatedly throughout the day. ?? Protect yourself by wearing long sleeves, pants, a wide-brimmed hat, and sunglasses whenever youare outside. HEART DISEASE, DIABETES, AND HIGH BLOOD PRESSURE ?? High blood pressure causes heart disease and increases the risk of stroke. High blood pressure is more likely to develop in: People who have blood pressure in the high end of the normal range (130-139/85-89 mm Hg). People who are overweight or obese. People who are . ?? If you are 18-39 years of age, have your blood pressure checked every 3-5 years. If you are 40 years of age or older, have your blood pressure checked every year. You should have your blood pressure measured twice--once when you are at a hospital or clinic, and once when you are not at a hospital or clinic. Record the average of the two measurements. To check your blood pressure when you are not at a hospital or clinic, you can use: An automated blood pressure machine at a pharmacy. A home blood pressure monitor. ?? If you are between 55 years and 79 years old, ask your health care provider if you should take aspirin to prevent strokes. ?? Have regular diabetes screenings. This involves taking a blood sample to check your fasting blood sugar level. If you are at a normal weight and have a low risk for diabetes, have this test once every three years after 45 years of age. If you are overweight and have a high risk for diabetes, consider being tested at a younger age or more often. PREVENTING INFECTION Hepatitis B ?? If you have a higher risk for hepatitis B, you should be screened for this virus. You are considered at high risk for hepatitis B if: You were born in a country where hepatitis B is common. Ask your health care provider which countries are considered high risk. Your parents were born in a high-risk country, and you have not been immunized against hepatitis B (hepatitis B vaccine). You have HIV or AIDS. You use needles to inject street drugs. You live with someone who has hepatitis B. You have had sex with someone who has hepatitis B. You get hemodialysis treatment. You take certain medicines for conditions, including cancer, organ transplantation, and autoimmune conditions. Hepatitis C ?? Blood testing is recommended for: ?? Everyone born from 1945 through 1965. ?? Anyone with known risk factors for hepatitis C. Sexually transmitted infections (STIs) ?? You should be screened for sexually transmitted infections (STIs) including gonorrhea and chlamydia if: ?? You are sexually active and are younger than 24 years of age. ?? You are older than 24 years of age and your health care provider tells you that you are at risk for this type of infection. ?? Your sexual activity has changed since you were last screened and you are at an increased risk for chlamydia or gonorrhea. Ask your health care provider if you are at risk. If you do not have HIV, but are at risk, it may be recommended that you take a prescription medicine daily to prevent HIV infection. This is called pre- exposure prophylaxis (PrEP). You are consideredat risk if: You are sexually active and do not regularly use condoms or know the HIV status of your partner(s). You take drugs by injection. You are sexually active with a partner who has HIV. Talk with your health care provider about whether you are at high risk of being infected with HIV. If you choose to begin PrEP, you should first be tested for HIV. You should then be tested every 3 months for as long as you are taking PrEP. ?? If you are premenopausal and you may become , ask your health care provider about preconception counseling. ?? If you may become , take 400 to 800 micrograms (mcg) of folic acid every day. ?? If you want to prevent , talk to your health care provider about control (contraception). OSTEOPOROSIS AND MENOPAUSE ?? Osteoporosis is a disease in which the bones lose minerals and strength with aging. This can result in serious bone fractures. Your risk for osteoporosis can be identified using a bone density scan. ?? If you are 65 years of age or older, or if you are at risk for osteoporosis and fractures, ask your health care provider if you should be screened. ?? Ask your health care provider whether you should take a calcium or vitamin D supplement to loweryour risk for osteoporosis. ?? Menopause may have certain physical symptoms and risks. ?? Hormone replacement therapy may reduce some of these symptoms and risks. Talk to your health care provider about whether hormone replacement therapy is right for you. HOME CARE INSTRUCTIONS ?? Schedule regular health, dental, and eye exams. ?? Stay current with your immunizations. ? Do not use any tobacco products including cigarettes, chewing tobacco, or electronic cigarettes. ?? If you are , do not drink alcohol. ?? If you are , limit how much and how often you drink alcohol. ?? Limit alcohol intake to no more than 1 drink per day for non women. One drink equals 12 ounces of beer, 5 ounces of wine, or 1?? ounces of hard liquor. ?? Do not use street drugs. ?? Do not share needles. ?? Ask your health care provider for help if you need support or information about quitting drugs. ?? Tell your health care provider if you often feel depressed. ?? Tell your health care provider if you have ever been abused or do not feel safe at home. This information is not intended to replace advice given to you by your health care provider. Make sure you discuss any questions you have with your health care provider. Document Released: 10/11/2011 Document Revised: 04/18/2015 Document Reviewed: 02/27/2014 [employer] Interactive Patient Education ??2016 [employer]. * Addendum Note - Tori Truong RMA - 01/04/2017 11:30 AM EDTAddended by: TORI TRUONG on: 01/04/2017 04:50 PM Modules accepted: Orders documented in this encounter Plan of Treatment Scheduled Orders Name Type Priority Associated Diagnoses Orde r Schedule DC TOBACCO USE CESSATION INTERMEDIATE 3-10 MINUTES DC Charge Routine Cigarette nicotine dependence without complication Ordered: 01/04/2017 [employer] CYTOLOGY REQUEST (PAP ONLY) Lab Routine Well adult exam Oral contraceptive pill surveillance 1 Occurrences starting 01/04/2017 until 01/04/2018 documented as of this encounter Goals Goal Patient Goal Type Associated Problems Recent Progress Patient-Stated? Author Maintain a healthy diet, exercise regularly and maintain an ideal body weight General No Shraddha Doaln LPN Stay Tobacco Free Lifestyle No Shraddha Dolan LPN documented as of this encounter Visit Diagnoses Diagnosis Well adult exam- Primary Routine general medical examination at a health care facility Oral contraceptive pill surveillance Surveillance of previously prescribed contraceptive pill History of cervical dysplasia Personal history of cervical dysplasia Family history of cervical cancer Family history of malignant neoplasm of genital organ, other Insomnia, persistent Persistent disorder of initiating or maintaining sleep Cigarette nicotine dependence without complication Tobacco use disorder documented in this encounter Discontinued Medications Medication Sig Discontinue Reason Start Date End Da te SRONYX 0.1-20 mg-mcg Oral TabletIndications:Encoun ter for initial prescription of contraceptive pills TAKE 1 TAB BY MOUTH DAILY. DELETE-Therapy completed 09/02/2016 01/04/2017 busPIRone (BUSPAR) 10 mg Oral TabletIndications:Genera lized anxiety disorder Take 1 Tab by mouth 2 times daily. DELETE-Therapy completed 12/30/2015 01/04/2017 ibuprofen (ADVIL;MOTRIN) 600 mg Oral Tablet Take 1 Tab by mouth every 8 hours as needed for Pain. Take with food DELETE-Therapy completed 09/26/2016 01/04/2017 DULoxetine (CYMBALTA) 30 mg Oral Capsule, Delayed Release(E.C.)Indications :Depression Take 1 Cap by mouth 2 times daily. DELETE-Therapy completed 11/04/2015 01/04/2017 SRONYX 0.1-20 mg-mcg Oral TabletIndications:Encoun ter for initial prescription of contraceptive pills TAKE 1 TAB BY MOUTH DAILY. DELETE-Therapy completed 09/02/2016 01/04/2017 documented as of this encounter Care Teams Cipher Expert Relationship Specialty Start Date End Date Nehemias Barron MD [address] [place] [address] PCP - General 12/01/10 Easton Thompson MD [address] [place] [address] [address] [place] [address] Physician Obstetrics & Gynecology 01/29/14 Radha Wild APRN [address] [place] [address] Nurse Practitioner 11/04/15 documented as of this encounter
--- OUTSIDE RECORDS SUMMARY | 2024-03-07 05:06 | XMS_ITS | Encounter Summary ---
Author Organization [place] [address] Care Team Providers Care Cook Jelly Name Role Phone Nehemias Barron MD Primary Care Provider [phone] Easton Thompson MD Unavailable [phone] Radha Wild PRACTICE ARCHITECT Unavailable [phone] Encounter Details Date Type Department Care Team (Latest Contact Info) Description 08/02/2019 1:45 PM EDT Telemedicine [facility] [address] [place] [address] Nehemias Barron MD [address] [place] [address] Cough (Primary Dx); Fever, unspecified fever cause; Shortness of breath; Exposure to COVID-19 virus; History of asthma Social History Tobacco Use [...] suspected to have Coronavirus / COVID-19? Yes 08/02/2019 1:42 PM EDT documented as of this encounter [...] in this encounter Progress Notes * Nehemias Braron MD - 08/02/2019 1:45 PM EDT Patient presented today for routine care follow-up through a video visit. Patient has reviewed the terms and conditions of service as part of the registration for today's visit. Patient is aware thata video visit does not replace a mtmm-et-faic exam and further services may be necessary. I advisedthe patient that we are conducting her video visit through our office in a private space on our secure network and this video visit is being conducted in accordance with [facility] telehealth/video visit regulations. Patient had no questions prior to initiation of the visit. HPI: Had an appt at [facility] 6 days ago, apparently notified today that she came into contact there with three people that have apparently been confirmed + Covid-19. Had spent and hour with one of the contacts in an exam room Has had ongoing, congestion, cough, fever 101, present for about 3-4 days Has had mild diarrhea Mild sob Known asthmatic, using inhaler Review of Systems All other systems reviewed [...] and all orders for this visit: Cough Fever, unspecified fever cause Shortness of breath Exposure to COVID-19 virus History of asthma Pt is tier 3 I have recommended she be seen at our respiratory urgent care for evaluation and possible testing for COVID-19 Pt agreeable and will proceed to the urgent care RAMOS ADDENDUM Pt contacted me, her ride will not be available to get to the urgent care tonight. It would be ok for her to go to the urgent care tomorrow for evaluation. I d/w her that if her shortness of breath were to worsen tonight, she should proceed to the ER for evaluation. documented in this encounter Plan of Treatment Not on file documented as of this encounter Goals Goal Patient Goal Type Associated Problems Recent Progress Patient-Stated? Author Maintain a healthy diet, exercise regularly and maintain an ideal body weight General No Shraddha Dolan LPN Stay Tobacco Free Lifestyle No Shraddha Dolan LPN documented as of this encounter Visit Diagnoses Diagnosis Cough- Primary Fever, unspecified fever cause Shortness of breath Exposure to COVID-19 virus History of asthma Personal history of other diseases of respiratory system documented in this encounter Additional Health Concerns Assessment Noted Time PHQ-9 Depression Total Score: 22 019 9:00 AM EDT PHQ-2 Depression Total Score: 6 08/27/19 19 9:00 AM EDT documented as of this encounter Care Teams Cook Jelly Relationship Specialty Start Date End Date Nehemias Barron MD [address] [place] [address] PCP - General 12/01/10 Easton Thompson MD [address] [place] [address] [address] [place] [address] Physician Obstetrics & Gynecology 01/29/14 Radha Wild APRN [address] [place] [address] Nurse Practitioner 11/04/15 documented as of this encounter
--- OUTSIDE RECORDS SUMMARY | 2024-03-07 05:06 | XMS_ITS | Encounter Summary ---
Author Organization [place] [address] Care Team Providers Care Tie Carrier Name Role Phone Nehemias Barron MD Primary Care Provider [phone] Easton Thompson MD Unavailable [phone] Radha Wild BINDERY MACHINE FEEDER OFFBEARER Unavailable [phone] Reason for Visit * Reason Comments Medication Refill Encounter Details Date Type Department Care Team (Late st Contact Info) Description 09/02/2016 Refill [facility] Crit [address] [place] [address] Easton Thompson MD [address] [id number] Medication Refill Social History Tobacco Use Types [...] Refills Last Filled Start Date End Date SRONYX 0.1-20 mg-mcg Oral TabletIndications:E ncounter for initial prescription of contraceptive pills TAKE 1 TAB BY MOUTH DAILY. 28 Tab 09/02/2016 01/04/2017 documented in this encounter Miscellaneous Notes * Telephone Encounter - Easton Thompson MD - 09/02/2016 4:30 PM EDT Please ask Ms. Olivares to make an appointment for an annual checkup. Thank you. documented in this encounter Plan of Treatment Not on file documented as of this encounter Visit Diagnoses Diagnosis Encounter for initial prescription of contraceptive pills General counseling for prescription of oral contraceptives documented in this encounter Discontinued Medications Medication Sig Discontinue Reason Start Date End Da te levonorgestrel-ethinyl estradiol (AVIANE;ALESSE;LESSINA) 0.1-20 mg-mcg Oral TabletIndications:Encounte r for initial prescription of contraceptive pills Take 1 Tab by mouth daily. Reorder 09/09/2015 09/02/2016 documented as of this encounter Care Teams Tie Carrier Relationship Specialty Start Date End Date Nehemias Barron MD [address] [place] [address] PCP - General 12/01/10 Easton Thompson MD [address] [place] [address] [address] [place] [address] Physician Obstetrics & Gynecology 01/29/14 Radha Wild APRN [address] [place] [address] Nurse Practitioner 11/04/15 documented as of this encounter
--- OUTSIDE RECORDS SUMMARY | 2024-03-07 05:06 | XMS_ITS | Encounter Summary ---
Author Organization [facility] [place] [address] Care Team Providers Care Manager Army Name Role Phone Nehemias Barron MD Primary Care Provider [phone] Easton Thompson MD Unavailable [phone] Radha Wild GEAR CUTTING MACHINE OPERATOR Unavailable [phone] Encounter Details Date Type Department Care Team (Latest Contact Info) Description 08/02/2019 Travel Social History Tobacco Use Types Packs/Day [...] documented as of this encounter Care Teams Manager Army Relationship Specialty Start Date End Date Nehemias Barron MD [address] [place] [id number] PCP - General 12/01/10 Easton Thompson MD [address] [place] [address] [address] [place] [address] Physician Obstetrics & Gynecology 01/29/14 Radha Wild APRN [address] [facility] [place] [address] Nurse Practitioner 11/04/15 documented as of this encounter
--- OUTSIDE RECORDS SUMMARY | 2024-03-07 05:06 | XMS_ITS | Encounter Summary ---
Author Organization [place] [address] Care Team Providers Care Farm Implement Engine Mechanic Name Role Phone Nehemias Barron MD Primary Care Provider [phone] Easton Thompson MD Unavailable Reason for Visit * Reason Onset Date Comments Medication Problem 11/03/2015 Encounter Details Date Type Department Care Team (Late Contact Info) Description 11/03/2015 Telephone [facility] [employer] [address] [facility] [place] [address] Nehemias Barron MD [address] [place] [address] Medication Problem Social History Tobacco Use Types Packs/Day Years [...] Garret Brand RN documented in this encounter Miscellaneous Notes * Telephone Encounter - Mallorie Gee MA - 11/03/2015 1:32 PM EDT Patient notified. * Telephone Encounter - Bonny Kirk RMA - 11/03/2015 12:59 PM EDT lmtcb 11/02 * Telephone Encounter - Nehemias Barron MD - 11/03/2015 12:17 PM EDT It would probably be best to see her, go over our options, see what would be best choice for her * Telephone Encounter - Allison Kaiser MA - 11/03/2015 11:26 AM EDT She was seen at the ER on 10/30/15 and was prescribed effexor. About 30 minutes after taking it she gets nauseous, lightheaded, jittery, and dizzy. Can you change it to something else or do you need to see her? documented in this encounter Plan of Treatment Not on file documented as of this encounter Visit Diagnoses Not on filedocumented in this encounter Care Teams Farm Implement Engine Mechanic Relationship Specialty Start Date End Date Nehemias Barron MD [address] [place] [address] PCP - General 12/01/10 Easton Thompson MD [address] [place] [address] [address] [place] [address] Physician Obstetrics & Gynecology 01/29/14 documented as of this encounter
--- OUTSIDE RECORDS SUMMARY | 2024-03-07 05:06 | XMS_ITS | Encounter Summary ---
Author Organization [place] [address] Care Team Providers Care Laborer Prestressed Concrete Name Role Phone Nehemias Barron MD Primary Care Provider Easton Thompson MD Unavailable [phone] Radha Wild ENGINEER SPECIALIST Unavailable [phone] Reason for Visit * Reason Comments Depression Encounter Details Date Type Department Care Team (Late st Contact Info) Description 11/04/2015 3:30 PM EDT Office Visit [facility] [address] [place] [address] Radha Wild, ENGINEER SPECIALIST [address] [place] [address] Depression (Primary Dx) Social History Tobacco Use Types [...] Sign Reading Time Taken Comments Blood Pressure 104/70 11/04/2015 3:14 PM EDT Pulse 110 11/04/2015 3:14 PM EDT Temperature 36.5 ??C (97.7 ??F) 11/04/2015 3:14 PM ED T Respiratory Rate - - Oxygen Saturation 100% 11/04/2015 3:14 PM EDT Inhaled Oxygen Concentration - - Weight 53.1 kg (117 lb) 11/04/2015 3:14 PM EDT Height 165.1 cm (5' 5 ) 11/04/2015 3:14 PM EDT Body Mass Index 19.47 11/04/2015 3:14 PM EDT documented in this encounter Functional [...] Refills Last Filled Start Date End Date DULoxetine (CYMBALTA) 30 mg Oral Capsule, Delayed Release(E.C.)Indica tions:Depression Take 1 Cap by mouth 2 times daily. 60 Cap 2 11/04/2015 01/04/2017 documented in this encounter Progress Notes * Radha Wild APRN - 11/04/2015 3:19 PM EDT Subjective: Patient ID: Bonny Olivares is a 25 y.o. female. Chief Complaint Patient presents with ??? Depression HPI: Was on effexor, unable to tolerate. Each time she would take felt shaky, did not like side effects.Could not tell that it was improving depression symptoms. Has tried zoloft, prozac, celexa, and wellbutrin without improvement. Recent admission for overdose/suicide attempt. States she no longer feels suicidal. Was not on medication at time of suicide attempt. Patients past medical, family and social histories were reviewed and updated. There were no changesexcept as noted. Review of Systems Constitutional: Negative for fever. HENT: Negative. Respiratory: Negative. Cardiovascular: Negative. Psychiatric/Behavioral: Negative for suicidal ideas. Objective: Filed Vitals: 11/04/15 1514 BP: 104/70 Pulse: 110 Temp: 97.7 ??F (36.5 ??C) TempSrc: Forehead Height: 5' 5 (1.651 m) Weight: 117 lb (53.071 kg) SpO2: 100% Body mass index is 19.47 kg/(m^2). Physical Exam Constitutional: She is oriented to person, place, and time. She appears well- developed and well-nourished. No distress. HENT: Mouth/Throat: Oropharynx is clear and moist. Eyes: Pupils are equal, round, and reactive to light. Neck: Normal range of motion. Neck supple. Cardiovascular: Normal rate and regular rhythm. Pulmonary/Chest: Effort normal and breath sounds normal. Neurological: She is alert and oriented to person, place, and time. Skin: Skin is warm and dry. She is not diaphoretic. Psychiatric: She has a normal mood and affect. Nursing note and vitals reviewed. Assessment and Plan: Bonny was seen today for depression. Diagnoses and all orders for this visit: Depression - DULoxetine (CYMBALTA) 30 mg Oral Capsule, Delayed Release(E.C.); Take 1 Cap by mouth 2 times daily. Return in about 3 months (around 02/04/2016), or if symptoms worsen or fail to improve. To return for immediate evaluation if begins to have suicidal thoughts. Follow up with shirley keen as previously recommended. Patient states she has phone number to call. Above problems were discussed with patient and all are stable except otherwise noted. A new medication was prescribed during this office visit. I did discuss with the patient the reasonfor prescribing this new medication. I also did inform the patient of possible likely side effects,but also encouraged the patient to read the medication insert that will accompany their prescription and encouraged her to discuss any questions about the insert with their pharmacist. She was instruc zane to call if having side effects or possible allergic reaction after taking. I also discussed with her the risk of stopping the medication or deviating from prescribing instructions. Dosing instructions are present on the AVS and she is aware. I inquired both patient and family of any questions and answered accordingly. Educated regarding the care plan and instructions listed on the After Visit Summary [AVS] for today's visit. They verbalized full understanding of the care plan and instructions given on the AVS for today's visit. documented in this encounter Plan of Treatment Not on file documented as of this encounter Visit Diagnoses Diagnosis Depression- Primary Depressive disorder, not elsewhere classified documented in this encounter Discontinued Medications Medication Sig Discontinue Reason Start Date End Da te venlafaxine (EFFEXOR) 50 mg Oral Tablet Take 1 Tab by mouth 2 times daily. Side effects 10/31/2015 11/04/2015 vit-iron fumarate-FA 27-0.8 mg Oral TabletIndications:pre gnancy Take 1 Tab by mouth daily. Indications: DELETE-Therapy completed 11/04/2015 documented as of this encounter Care Teams Laborer Prestressed Concrete Relationship Specialty Start Date End Date Nehemias Barron MD [address] [place] [address] PCP - General 12/01/10 Easton Thompson MD [address] [place] [address] [address] [place] [address] Physician Obstetrics & Gynecology 01/29/14 Radha Wild APRN [address] [place] [address] Nurse Practitioner 11/04/15 documented as of this encounter
--- OUTSIDE RECORDS SUMMARY | 2024-03-07 05:06 | XMS_ITS | Encounter Summary ---
Author Organization [place] [address] Care Team Providers Care Sap Business Analyst Name Role Phone Nehemias Barron MD Primary Care Provider [phone] Easton Thompson MD Unavailable [phone] Radha Wild APRN Unavailable [phone] Reason for Visit * Reason Onset Date Comments Results 01/06/2016 Encounter Details Date Type Department Care Team (Late st Contact Info) Description 01/06/2016 Telephone [facility] [address] [place] [address] Bonny Santizo, [facility] [address] [place] [address] Results Social History Tobacco Use Types Packs/Day [...] Miscellaneous Notes * Telephone Encounter - Bonny Kirk RMA - 01/06/2016 4:47 PM EDT notified * Telephone Encounter - Radha Wild APRN - 01/06/2016 4:44 PM EDT There was a delay in lab processing. I called to check with them. They have told me it should be completed today or tomorrow. I will let her know as soon as I hear the results. Sorry for the delay! * Telephone Encounter - Bonny Santizo CMA - 01/06/2016 4:30 PM EDT Pt is calling for her pap results, still says in process, how long should this take? documented in this encounter Plan of Treatment Not on file documented as of this encounter Visit Diagnoses Not on filedocumented in this encounter Care Teams Sap Business Analyst Relationship Specialty Start Date End Date Nehemias Barron MD [address] [place] [address] PCP - General 12/01/10 Easton Thompson MD [address] [place] [address] [address] [place] [address] Physician Obstetrics & Gynecology 01/29/14 Radha Wild APRN [address] [place] [address] Nurse Practitioner 11/04/15 documented as of this encounter
--- OUTSIDE RECORDS SUMMARY | 2024-03-07 05:06 | XMS_ITS | Encounter Summary ---
Author Organization [place] [address] Care Team Providers Care Acute Care Certified Nursing Assistant Name Role Phone Nehemias Barron MD Primary Care Provider [phone] Easton Thompson MD Unavailable [phone] Radha Wild APRN Unavailable [phone] Reason for Visit * Reason Comments Dental Pain Pt is c/o lower righ t-sided dental pain for 3 months. Pt reports that she cannot take the pain any longer. CPTA, ibuprofen at 1100 Encounter Details Date Type Department Care Team (Late st Contact Info) Description 09/26/2016 8:16 PM EDT - 09/26/2016 9:03 PM EDT [facility] [address] [facility] [place] [address] Lexi Owusu MD [address] [place] [id number] Odontalgia (Primary Dx); Dental caries; Tobacco use Discharge Disposition: Home or Self Care Social [...] Sign Reading Time Taken Comments Blood Pressure 104/51 09/26/2016 8:19 PM EDT Pulse 98 09/26/2016 8:19 PM EDT Temperature 36.9 ??C (98.4 ??F) 09/26/2016 8:19 PM ED T Respiratory Rate 22 09/26/2016 8:19 PM EDT Oxygen Saturation 93% 09/26/2016 8:19 PM EDT Inhaled Oxygen Concentration - - Weight 49.4 kg (109 lb) 09/26/2016 8:19 PM EDT Height 165.1 cm (5' 5 ) 09/26/2016 8:19 PM EDT Body Mass Index 18.14 09/26/2016 8:19 PM EDT documented in this encounter Functional [...] this encounter Discharge Instructions * Discharge Instructions* Zara Aviles APRN - 09/26/2016 8:54 PM EDT Amoxicillin as directed. Ibuprofen as directed for discomfort/inflammation. Take with food. Do not exceed more than 2400 mg of ibuprofen and a 24-hour period as discussed. Soft diet. Rinse your mouth lukewarm salt water after eating, drinking and smoking. Return for fever, increased pain, facial swelling, trouble swallowing or new or worsening concerns. * Attachments The following attachments cannot be sent through Care Everywhere. * DENTAL PAIN, [id number] (POLISH) * DENTAL CARIES, [id number] (POLISH) * SMOKING CESSATION, TIPS FOR SUCCESS (POLISH) documented in this encounter Medications at Time of Discharge Amoxicillin 500 mg Oral Tablet Take 1 Tab by mouth every 8 hours for 30 doses. 30 Tab 09/26/2016 10/06/2016 documented as of this encounter Ordered Prescriptions Prescription Sig Dispense Quantity Refills Last Filled Start Date End Date ibuprofen (ADVIL;MOTRIN) 600 mg Oral Tablet Take 1 Tab by mouth every 8 hours as needed for Pain. Take with food 20 Tab 09/26/2016 01/04/2017 Amoxicillin 500 mg Oral Tablet Take 1 Tab by mouth every 8 hours for 30 doses. 30 Tab 09/26/2016 10/06/2016 documented in this encounter Discharge Disposition Disposition Code Departure Means Destination Home or Self Halfway documented in this encounter ED Notes * Zara Aviles APRN - 09/26/2016 8:14 PM EDT CHIEF COMPLAINT Chief Complaint Patient presents with ??? Dental Pain Pt is c/o lower right-sided dental pain for 3 months. Pt reports that she cannot take the pain any longer. CPTA, ibuprofen at 1100 HPI Bonny Olivares is a 26 y.o. female who presents to the emergency department for evaluation of right lower dental pain that has been constant in nature for the past 3 months, typically relieved with ibuprofen and states over the past 24 hours she has a constant, throbbing pain to right lower teeth that is unrelieved with ibuprofen she has been taking at home. Last dose of ibuprofen was 11 AM today.She has not tried any other medications except for ibuprofen for her discomfort. Patient does smokecigarettes. She denies alcohol or illicit drug use. REVIEW OF SYSTEMS See HPI for further [...] Problems Neg Hx SOCIAL HISTORY Social History Social History ??? Marital status: Single Spouse name: N/A ??? Number of children: N/A ??? Years of education: N/A Social History Main Topics ??? Smoking status: Current Every Day Smoker Packs/day: 1.00 Years: 8.00 Types: Cigarettes Start date: 04/11/2005 Last attempt to quit: 10/09/2015 ??? Smokeless tobacco: Never Used Comment: info refused ??? Alcohol use No ??? Drug use: No ??? Sexual activity: Yes Partners: Male Other Topics Concern ??? None Social History Narrative SURGICAL HISTORY Past Surgical History: Procedure Laterality Date ??? APPENDECTOMY age 7 ??? CERVIX BIOPSY 2010, 05/29/2013 ??? DILATION AND CURETTAGE OF UTERUS N/A 02/20/2014 DILATION & CURETTAGE SUCTION EVACUATION FOR MISSCARRIAGE ; Surgeon: Kash Tabares MD; Location: ED MAIN OR; Service: Gynecology ??? LEEP N/A 06/27/2013 LOOP EXCISION PROCEDURE (LEEP); Surgeon: Sachin Castellanos MD; Location: [facility] MAIN OR; Service: Gynecology ??? SKIN CANCER EXCISION 06/2012 melanoma back CURRENT MEDICATIONS No current facility-administered medications for this encounter. Current Outpatient Prescriptions: ??? SRONYX 0.1-20 mg-mcg Oral Tablet, TAKE 1 TAB BY MOUTH DAILY., Disp: 28 Tab, Rfl: 0 ??? busPIRone (BUSPAR) 10 mg Oral Tablet, Take 1 Tab by mouth 2 times daily. (Patient not taking: Reported on 09/26/2016), Disp: 60 Tab, Rfl: 2 ??? DULoxetine (CYMBALTA) 30 mg Oral Capsule, Delayed Release(E.C.), Take 1 Cap by mouth 2 times daily. (Patient not taking: Reported on 09/26/2016), Disp: 60 Cap, Rfl: 2 ALLERGIES Allergies Allergen Reactions ??? Citalopram Hives ??? Effexor [Venlafaxine] Nausea And Vomiting and Other (See Comments) Shaky, lightheaded ??? Sulfa (Sulfonamide Antibiotics) Swelling and Rash throat closes up, rash, and red everywhere PHYSICAL EXAM VITAL SIGNS: Visit Vitals ??? BP 104/51 (BP Location: Right arm, Patient Position: Sitting) ??? Pulse 98 ??? Temp 98.4 ??F (36.9 ??C) (Oral) ??? Resp 22 ??? Ht 5' 5 (1.651 m) ??? Wt 109 lb (49.4 kg) ??? LMP 08/28/2016 ??? SpO2 93% ??? BMI 18.14 kg/m2 Constitutional: Well developed, Well nourished, No acute distress, Non-toxic appearance. HENT: Normocephalic, atraumatic, bilateral TMs are pearly mayorga without erythema or hemotympanum, nasal exam normal, poor dentition and multiple dental caries noted throughout the mouth, tooth #31 is fractured and teeth #28, 29, 30 and 31 are tender to touch, throat without erythema or exudate, no trismus, uvula is midline, posterior oropharynx moist and widely patent, voice remains intact, no palpable abscess, no signs of Anthony angina Eyes: PERRLA, EOMs intact, conjunctiva normal Neck: Normal range of motion, No tenderness, Supple, No stridor. Lymphatic: no cervical or occipital lymphadenopathy noted Cardiovascular: Normal heart rate, Normal rhythm, No murmurs, No rubs, No gallops. Thorax & Lungs: Breath sounds clear to auscultation throughout, no respiratory distress, no wheezing, patient speaking in full sentences Abdomen: Bowel sounds normal, Soft, No tenderness, No masses, No pulsatile masses. No rebound or organomegly. Skin: Warm, Dry, No erythema, No rash. Extremities: Intact distal pulses, No edema, No tenderness, No cyanosis, No clubbing. RADIOLOGY/PROCEDURES COURSE & MEDICAL DECISION MAKING Pertinent Labs & Imaging studies reviewed. (See chart for details) Patient presents to the emergency department for above complaints. Patient given ibuprofen, amoxicillin and [place] tablet here with pressures are amoxicillin and ibuprofen written for home. She was instructed to follow soft diet, rinse her mouth with lukewarm salt water after eating, drinking and smoking, finished amoxicillin, and patient inserted follow-up with dentist as soon as possible. Dentist referral list provided as she states she does not currently have a dentist. Return precautions discussed. Patient verbalized understanding of these instructions and agreeable with this plan. FINAL IMPRESSION 1. Odontalgia 2. Dental caries 3. Tobacco use Patient discharged home in stable condition This chart was completed using voice recognition technology and may contain unintended errors Zara Aviles APRN 09/26/16 2221 Cosigned by Lexi Owusu MD at 09/26/2016 10:39 PM EDT Associated attestation - Lexi Owusu MD - 09/26/2016 10:39 PM EDT Patient seen and treated independently by the nurse practitioner This chart was completed using voice recognition technology and may contain unintended errors documented in this encounter Plan of Treatment Not on file documented as of this encounter Visit Diagnoses Diagnosis Odontalgia- Primary Unspecified disorder of the teeth and supporting structures Dental caries Unspecified dental caries Tobacco use Tobacco use disorder documented in this encounter Administered Medications Inactive Administered Medications - up to 1 most recent administrations Medication Order MAR Action Action Date Dose Rate Site amoxicillin (AMOXIL) capsule 500 mg 500 mg, Oral, ONCE, 1 dose, On 09/26/16 at 2029 Given 09/26/2016 8:44 PM EDT 500 mg HYDROcodone-acetaminophen (NORCO) 5-325 mg per tablet 1 Tab 1 Tablet, Oral, ONCE, 1 dose, On 09/26/16 at 2030, Maximum adult dose of acetaminophen is 4000 mg from all sources in 24 hours. Given 09/26/2016 8:44 PM EDT 1 Tablet ibuprofen (ADVIL;MOTRIN) tablet 400 mg 400 mg, Oral, ONCE, 1 dose, On 09/26/16 at 2030, If patient receiving scheduled ibuprofen (Caldolor) IV, hold oral ibuprofen until IV therapy completed. Given 09/26/2016 8:44 PM EDT 400 mg documented in this encounter Active and Recently Administered Medications Times are shown in EDT. Scheduled Medication Order 09/24/2016 09/25/2016 09/26/2016 amoxicillin (AMOXIL) capsule 500 mg (COMPLETED) 500 mg, Oral, ONCE, 1 dose, On 09/26/16 at 2029 2043 (Given - Provid er: Vicenta Mcnamara RN) HYDROcodone-acetaminophen (NORCO) 5-325 mg per tablet 1 Tab (COMPLETED) 1 Tablet, Oral, ONCE, 1 dose, On 09/26/16 at 2030, Maximum adult dose of acetaminophen is 4000 mg from all sources in 24 hours. 2043 (Given - Provid er: Vicenta Mcnamara RN) ibuprofen (ADVIL;MOTRIN) tablet 400 mg (COMPLETED) 400 mg, Oral, ONCE, 1 dose, On 09/26/16 at 2030, If patient receiving scheduled ibuprofen (Caldolor) IV, hold oral ibuprofen until IV therapy completed. 2043 (Given - Provid er: Vicenta Mcnamara RN) documented in this encounter Care Teams Acute Care Certified Nursing Assistant Relationship Specialty Start Date End Date Nehemias Barron MD [address] [place] [address] PCP - General 12/01/10 Easton Thompson MD [address] [place] [address] [address] [place] [address] Physician Obstetrics & Gynecology 01/29/14 Radha Wild APRN [address] [place] [address] Nurse Practitioner 11/04/15 documented as of this encounter
--- OUTSIDE RECORDS SUMMARY | 2024-03-07 05:06 | XMS_ITS | Encounter Summary ---
Author Organization [place] [address] Care Team Providers Care Clay Dry Press Helper Name Role Phone Nehemias Barron MD Primary Care Provider [phone] Easton Thompson MD Unavailable [phone] Radha Wild APRN Unavailable [phone] Reason for Visit * Reason Onset Date Comments Care Management - Chart Review 09/27/2016 C marina Review-Patient discharged from ED 09/26/2016 Encounter Details Date Type Department Care Team (Latest Contact Info) Description 09/27/2016 Patient Outreach [facility] [address] [place] [address] Shraddha Dolan LPN Care Management - Chart Review (Chart Review-Patient discharged from ED 09/26/2016) Social History Tobacco Use Types Packs/Day Years [...] documented in this encounter Progress Notes * Michelle Vergara RMA - 09/27/2016 2:27 PM EDT ED Follow Up Regarding the most recent emergency room visit: Contact made?: No If no, did you leave a message?: No Was letter sent?: Yes If patient is unable to fill medications, please consider a social work consult if criteria met: * Shraddha Dolan LPN - 09/27/2016 11:41 AM EDT [facility] reviewed chart due to ED visit (09/26/2016). Patient not a candidate to be followed by [facility]. level 1 documented in this encounter Plan of Treatment Not on file documented as of this encounter Goals Goal Patient Goal Type Associated Problems Recent Progress Patient-Stated? Author Maintain a healthy diet, exercise regularly and maintain an ideal body weight General No Kelsi, Shraddha Ellen, MANAGER AIR Stay Tobacco Free Lifestyle No Shraddha Dolan LPN documented as of this encounter Visit Diagnoses Diagnosis Odontalgia- Primary Unspecified disorder of the teeth and supporting structures documented in this encounter Care Teams Clay Dry Press Helper Relationship Specialty Start Date End Date Nehemias Barron MD [address] [place] [address] PCP - General 12/01/10 Easton Thompson MD [address] [place] [address] [address] [place] [address] Physician Obstetrics & Gynecology 01/29/14 Radha Wild APRN [address] [place] [address] Nurse Practitioner 11/04/15 documented as of this encounter
--- OUTSIDE RECORDS SUMMARY | 2024-03-07 05:06 | XMS_ITS | Encounter Summary ---
Author Organization [place] [address] Care Team Providers Care Service Learning Coordinator Name Role Phone Nehemias Barron MD Primary Care Provider [phone] Easton Thompson MD Unavailable [phone] Radha Wild APRN Unavailable [phone] Reason for Referral * Consultation (Routine) - Closed Specialty Diagnoses / Procedures Referred By Contac t Referred To Contact Obstetrics and Gynecology Diagnoses Cervical dysplasia Nehemias Barron MD [address] [place] [address] Phone: tel: fax: Kash Tabares MD [address] [facility] [address] [place] [phone] Phone: tel: fax: Referral ID Status Reason Start Date Expiration Date Visits Re quested Visits Authorized [id number] Closed 08/30/2018 08/30/2019 99 99 Encounter Details Date Type Department Care Team (Late st Contact Info) Description 08/30/2018 Orders Only SEP [facility] [address] 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 Author Maintain a healthy diet, exercise regularly and maintain an ideal body weight General No Shraddha Dolan LPN Stay Tobacco Free Lifestyle No Shraddha Dolan LPN documented as of this encounter Visit Diagnoses Diagnosis Cervical dysplasia- Primary Dysplasia of cervix, unspecified documented in this encounter Additional Health Concerns Assessment Noted Time PHQ-9 Depression Total Score: 22 019 9:00 AM EDT PHQ-2 Depression Total Score: 6 08/27/19 19 9:00 AM EDT documented as of this encounter Care Teams Service Learning Coordinator Relationship Specialty Start Date End Date Nehemias Barron MD [address] [place] [address] PCP - General 12/01/10 Easton Thompson MD [address] [place] [address] [address] [place] [address] Physician Obstetrics & Gynecology 01/29/14 Radha Wild APRN [address] [place] [address] Nurse Practitioner 11/04/15 documented as of this encounter
--- OUTSIDE RECORDS SUMMARY | 2024-03-07 05:06 | XMS_ITS | Encounter Summary ---
Author Organization [place] [address] Care Team Providers Care Performance Makeup Artist Name Role Phone Nehemias Barron MD Primary Care Provider [phone] Easton Thompson MD Unavailable [phone] Radha Wild APRN Unavailable [phone] Reason for Referral * Consultation (Routine) - Closed Specialty Diagnoses / Procedures Referred By Contjamal t Referred To Contact Obstetrics and Gynecology Diagnoses Abnormal menstrual periods Radha Wild APRN [address] [place] [address] Phone: tel: fax: Kash Loza MD [address] [facility] [address] [place] [address] Phone: tel: fax: Referral ID Status Reason Start Date Expiration Date Visits Re quested Visits Authorized [id number] Closed 12/30/2015 12/29/2016 1 1 Reason for Visit * Reason Comments Menstrual Problem Anxiety Insomnia Encounter Details Date Type Department Care Team (Late st Contact Info) Description 12/30/2015 1:00 PM EDT Office Visit [facility] [address] [facility], [place] [address] Radha Wild APRN [address] [place] [address] UTI (urinary tract infection), uncomplicated (Primary Dx); Abnormal menstrual periods; Generalized anxiety disorder Social History Tobacco Use Types Packs/Day Years [...] Sign Reading Time Taken Comments Blood Pressure 120/70 12/30/2015 1:18 PM EDT Pulse 132 12/30/2015 1:18 PM EDT Temperature 37.4 ??C (99.4 ??F) 12/30/2015 1:18 PM ED T Respiratory Rate - - Oxygen Saturation 90% 12/30/2015 1:18 PM EDT Inhaled Oxygen Concentration - - Weight 50.8 kg (112 lb) 12/30/2015 1:18 PM EDT Height 165.1 cm (5' 5 ) 12/30/2015 1:18 PM EDT Body Mass Index 18.64 12/30/2015 1:18 PM EDT documented in this encounter Functional [...] No 07/21/2015 5:41 PM EDT Garret Brand, OSCAR * Does this person have difficulty dressing [...] Date ciprofloxacin HCl (CIPRO) 500 mg Oral TabletIndications:U TI (urinary tract infection), uncomplicated Take 1 Tab by mouth 2 times daily for 10 days. 20 Tab 12/30/2015 01/09/2016 busPIRone (BUSPAR) 10 mg Oral TabletIndications:G eneralized anxiety disorder Take 1 Tab by mouth 2 times daily. 60 Tab 2 12/30/2015 01/04/2017 documented in this encounter Progress Notes * Radha Wild APRN - 12/30/2015 1:00 PM EDT Subjective: Patient ID: Bonny Olivares is a 25 y.o. female. Chief Complaint Patient presents with ??? Menstrual Problem ??? Anxiety ??? Insomnia HPI: Period started two weeks early. States was dark brown and looked like globs of tissue. States is onthird week of symptoms. States now turning more to red blood like with normal period. Having trouble with nausea. Has hx of dysplasia. Has seen dr. loza in past, would like to follow up with him. Has had cough and congestion. Cough has been productive. Has had sinus pain and congestion. Difficulty with sleeping, having anxiety attacks. Has had problem with similar symptoms in past. Patients past medical, family and social histories were reviewed and updated. There were no changesexcept as noted. Review of Systems Constitutional: Negative. HENT: Positive for congestion. Respiratory: Positive for cough (productive). Gastrointestinal: Positive for nausea. Genitourinary: Positive for menstrual problem. Musculoskeletal: Positive for back pain. Objective: Vitals: 12/30/15 1318 BP: 120/70 BP Location: Right arm Patient Position: Sitting Pulse: 132 Temp: 99.4 ??F (37.4 ??C) TempSrc: Forehead SpO2: 90% Weight: 112 lb (50.8 kg) Height: 5' 5 (1.651 m) Body mass index is 18.64 kg/(m^2). Physical Exam Constitutional: She is oriented to person, place, and time. She appears well- developed and well-nourished. No distress. HENT: Mouth/Throat: Oropharynx is clear and moist. Neck: Normal range of motion. Neck supple. Cardiovascular: Normal rate and regular rhythm. Pulmonary/Chest: Effort normal and breath sounds normal. Abdominal: Soft. She exhibits no distension. There is no tenderness. There is no rebound. Genitourinary: There is no rash, tenderness or lesion on the right labia. There is no rash, tenderness or lesion on the left labia. Cervix exhibits discharge (bloody). Cervix exhibits no motion tenderness and no friability. Neurological: She is alert and oriented to person, place, and time. Skin: Skin is warm. She is not diaphoretic. Psychiatric: She has a normal mood and affect. Nursing note and vitals reviewed. Assessment and Plan: Bonny was seen today for menstrual problem, anxiety and insomnia. Diagnoses and all orders for this visit: UTI (urinary tract infection), uncomplicated Orders: - ciprofloxacin HCl (CIPRO) 500 mg Oral Tablet; Take 1 Tab by mouth 2 times daily for 10 days. - cefTRIAXone (ROCEPHIN) injection 1 g; Inject 1 g into the muscle once. - Urine Culture - Clinic Collect; Future - POCT UA Abnormal menstrual periods Orders: - Obstetrics / GynecologyWENDY JONATHAN (ERNIE) - POCT Urine Test - Cytology, Butane Compressor Operator Request (PAP Only); Future Generalized anxiety disorder Orders: - busPIRone (BUSPAR) 10 mg Oral Tablet; Take 1 Tab by mouth 2 times daily. Return if symptoms worsen or fail to improve. Above problems were discussed with patient and [...] Type Priority Associated Diagnoses Orde r Schedule URINE CULTURE Microbiology Routine UTI (urinary tract infection), uncomplicated 1 Occurrences starting 12/30/2015 until 12/29/2016 Scheduled Referrals Name Type Priority Associated Diagnoses Orde r Schedule AMB REFERRAL TO OB-CHIEF DEPUTY Outpatient Referral Routine Abnormal menstrual periods Ordered: 12/30/2015 documented as of this encounter Procedures Procedure Name Priority Date/Time Associated Diagnosis Comments POCT URINALYSIS DIPSTICK Routine 12/30/2015 2:06 PM EDT UTI (urinary tract infection), uncomplicated POCT URINE Routine 12/30/2015 2:05 PM EDT Abnormal menstrual periods documented in this encounter Results * (ABNORMAL) POCT URINALYSIS DIPSTICK (12/30/2015 2:06 PM EDT) Color, UA yellow CLEAR,YELL OW,ORANGE, RUST SEP OFFICE Clarity, UA cloudy CLEAR,CLOU DY SEP OFFICE Glucose, UA neg G/DL% SEP OFFICE Bilirubin, UA neg POS/NEG SEP OFFICE Ketones, UA neg POS/NEG SEP truck striker Grav, UA 1.025 1.001 - 1.035 G/DL SEP OFFICE Blood, UA neg POS/NEG SEP OFFICE pH, UA 6.5 5.0 - 8 SEP OFFICE Protein, UA neg POS/NEG SEP OFFICE Urobilinogen, UA neg 0.2 - 1.0 MG/DL SEP OFFICE Leukocytes, UA neg POS/NEG SEP OFFICE Nitrite, UA pos POS/NEG SEP OFFICE UA Appear POC SEP OFFICE Lot Number SEP OFFICE Expiration Date SEP OFFICE SeriAl # SEP OFFICE Urine specimen (specimen) 12/30/2015 2:06 PM EDT Radha Wild SUPPLY CHAIN GENERALIST POINT OF CARE TEST ORDERA BLES Final Result Performing Organization Address City/[facility] Co de Phone Number SEP OFFICE * POCT URINE (12/30/2015 2:05 PM EDT) Preg Test, Ur neg POS/NEG SEP OFFICE Lot Number SEP OFFICE Expiration Date SEP OFFICE SeriAl # SEP OFFICE Control Line Yes YES/NO SEP OFFICE 12/30/2015 2:05 PM EDT Radha Wild SUPPLY CHAIN GENERALIST POINT OF CARE TEST ORDERA BLES Final Result Performing Organization Address [facility] Co de Phone Number SEP OFFICE documented in this encounter Visit Diagnoses Diagnosis UTI (urinary tract infection), uncomplicated- Primary Urinary tract infection, site not specified Abnormal menstrual periods Generalized anxiety disorder documented in this encounter Administered Medications Inactive Administered Medications - up to 1 most recent administrations Medication Order MAR Action Action Date Dose Rate Site cefTRIAXone (ROCEPHIN) injection 1 g 1 g, Intramuscular, ONCE, 1 dose, On Tue12/30/15 at 1345, Dx: 1. UTI (urinary tract infection), uncomplicatedIndications:U TI (urinary tract infection), uncomplicated Given 12/30/2015 2:05 PM EDT 1 g Left upper gluteus documented in this encounter Orders Lab Orders Without Results Count Last Ordered D ate First Ordered Date CHIEF DEPUTY CYTOLOGY REQUEST (PAP ONLY) 1 6 documented in this encounter Care Teams Performance Makeup Artist Relationship Specialty Start Date End Date Nehemias Barron MD [address] [place] [address] PCP - General 12/01/10 Easton Thompson MD [address] [place] [address] [address] [place] [address] Physician Obstetrics & Gynecology 01/29/14 Radha Wild APRN [address] [place] [address] Nurse Practitioner 11/04/15 documented as of this encounter
--- OUTSIDE RECORDS SUMMARY | 2024-03-07 05:06 | XMS_ITS | Encounter Summary ---
Author Organization [place] [address] Care Team Providers Care Manager Residential Name Role Phone Nehemias Barron MD Primary Care Provider [phone] Easton Thompson MD Unavailable [phone] Radha Wild APRN Unavailable [phone] Reason for Visit * Reason Onset Date Comments Visit Follow Up 09/27/2017 Encounter Details Date Type Department Care Team (Late st Contact Info) Description 09/27/2017 Telephone [facility] [address] [facility] [place] [address] Sundeep Galvan, [facility] [address] [place] [address] Visit Follow Up Social History Tobacco Use Types Packs/Day Years [...] Refills Last Filled Start Date End Date amoxicillin-clavula néstor (AUGMENTIN) 875-125 mg Oral Tablet Take 1 Tab by mouth every 12 hours for 7 days. 14 Tab 10/04/2017 10/11/2017 documented in this encounter Miscellaneous Notes * Addendum Note - Sundeep Galvan CMA - 10/04/2017 10:44 AM EDTAddended by: SUNDEEP GALVAN on: 10/04/2017 10:44 AM Modules accepted: Orders * Telephone Encounter - Sundeep Galvan CMA - 10/04/2017 10:44 AM EDT Patient notified. * Telephone Encounter - Mariana Greer CCMA - 10/03/2017 5:02 PM EDT Attempt #2, VM not set up * Telephone Encounter - Michelle Vergara RMA - 09/27/2017 1:53 PM EDT VM not set up * Telephone Encounter - Nehemais Barron MD - 09/27/2017 10:34 AM EDT Her urine culture did show E coli, according to the sensitivities cipro should have been effective.Lets try a different antibiotic, lets send in augmentin 875 mg BID #14. I would expect this to resolved within 2 days or so. If this new antibiotic is not helping either, I would suggest we recheck her * Telephone Encounter - Sundeep Galvan CMA - 09/27/2017 10:16 AM EDT Pt dx with uti, does not feel like it is any better at all, what to do? documented in this encounter Plan of Treatment [...] on filedocumented in this encounter Care Teams Manager Residential Relationship Specialty Start Date End Date Nehemias Barron MD [address] [place] [address] PCP - General 12/01/10 Easton Thompson MD [address] [place] [address] [address] [place] [address] Physician Obstetrics & Gynecology 01/29/14 Radha Wild APRN [address] [facility] [phone] Nurse Practitioner 11/04/15 documented as of this encounter
--- OUTSIDE RECORDS SUMMARY | 2024-03-07 05:06 | XMS_ITS | Encounter Summary ---
Author Organization [place] [address] Care Team Providers Care Liquor Store Manager Name Role Phone Nehemias Barron MD Primary Care Provider [phone] Easton Thompson MD Unavailable [phone] Radha Wild APRN Unavailable [phone] Reason for Visit * Reason Comments Cough Headache Encounter Details Date Type Department Care Team (Late st Contact Info) Description 08/03/2019 10:30 AM EDT Office Visit SEP Amie Wilson [address] [place] [address] [place] [address] Sofía Adam ARNP [address] [place], [place] [id number] Exposure to COVID-19 virus (Primary Dx) Social History Tobacco Use Types [...] Sign Reading Time Taken Comments Blood Pressure - - Pulse 129 08/03/2019 10:25 AM EDT Temperature 36.2 ??C (97.2 ??F) 08/03/2019 10:25 AM E DT Respiratory Rate - - Oxygen Saturation 98% 08/03/2019 10:25 AM EDT Inhaled Oxygen Concentration - - Weight 58.1 kg (128 lb) 08/03/2019 10:25 AM EDT Height 165.1 cm (5' 5 ) 08/03/2019 10:25 AM EDT Body Mass Index 21.3 08/03/2019 10:25 AM EDT documented in this encounter Functional [...] documented in this encounter Progress Notes * Sofía Adam, JAI - 08/03/2019 10:30 AM EDT Subjective Subjective: Patient ID: Bonny Olivares is a 29 y.o. female. Chief Complaint Patient presents with ??? Cough ??? Headache Pt was screened for COVID19 at the Urgent Care entrance/front door. Consent was given per pt. See scanned form. HPI: 29 yo female in for cough and headaches. States she has no sob. No body aches. No chest pain. No bowel and bladder problems. States she was in a clinic last week. Yesterday someone called her and told her she was exposed to someone in the clinic who she saw last week that has positive covid19.She called her pcp. Her pcp told her she needs to be tested. Patients past medical, family and social histories were reviewed and updated. There were no changesexcept as noted. Review of Systems Constitutional: Negative. Negative for activity change, appetite change, chills and fever. HENT: Negative. Negative for congestion, ear pain, postnasal drip, rhinorrhea, sinus pressure, sinus pain, sore throat and voice change. Eyes: Negative. Respiratory: Positive for cough. Cardiovascular: Negative for chest pain. Gastrointestinal: Negative. Negative for abdominal pain, constipation, diarrhea, nausea and vomiting. Genitourinary: Negative. Musculoskeletal: Negative for myalgias. Neurological: Positive for headaches. Negative for dizziness and light-headedness. Patient Active Problem List Diagnosis Date Noted ??? History of asthma 08/02/2019 ??? Cough 08/02/2019 ??? Fever 08/02/2019 ??? Shortness of breath 08/02/2019 ??? Exposure to COVID-19 virus 08/02/2019 ??? 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 MDD (major depressive disorder), recurrent episode, moderate ([facility]) 08/26/2018 ??? Insomnia, persistent 08/26/2018 ??? Exposure to genital herpes 08/26/2018 ??? History of cervical dysplasia 08/26/2018 ??? Family history of cervical cancer 01/04/2017 ??? Cigarette nicotine dependence without complication 01/04/2017 ??? Lymphadenopathy, posterior cervical 02/04/2014 ??? RA (rheumatoid arthritis) ([facility]) ??? Syncope, vasovagal 09/22/2011 Past Medical History: Diagnosis Date ??? Anemia [...] PROCEDURE (LEEP); Surgeon: Sachin Castellanos MD; Location: [facility] MAIN OR; Service: Gynecology ??? SKIN CANCER EXCISION 06/2012 melanoma back Outpatient Medications Marked as Taking for the 08/03/19 encounter (Office Visit) with Sofía Adam ARNP Medication Sig Dispense Refill ??? Etonogestrel (NEXPLANON) 68 mg Sdrm Implant by Subdermal route. ??? traZODone (DESYREL) 50 mg Oral Tablet Take 1 Tab by mouth nightly. 30 Tab 5 Allergies Allergen Reactions ??? Citalopram Hives ??? Effexor [Venlafaxine] Nausea And Vomiting and Other (See Comments) Shaky, lightheaded ??? Sulfa (Sulfonamide Antibiotics) Swelling and Rash throat closes up, rash, and red everywhere Social History Tobacco Use ??? Smoking status: Current Every Day Smoker Packs/day: 1.00 Years: 8.00 Pack years: 8.00 Types: Cigarettes Start date: 04/11/2005 Last attempt to quit: 10/09/2015 Years since quittin.8 ??? Smokeless tobacco: Never Used Substance Use Topics ??? Alcohol use: No Family History Problem Relation Age of Onset ??? Cancer Maternal Grandmother melanoma ??? Anesth Problems Neg Hx Objective Objective: Vitals: 08/03/19 1025 Pulse: 129 Temp: 97.2 ??F (36.2 ??C) TempSrc: Tympanic SpO2: 98% Weight: 128 lb (58.1 kg) Height: 5' 5 (1.651 m) Body mass index is 21.3 kg/m??. Physical Exam Vitals signs and nursing note reviewed. Constitutional: General: She is not in acute distress. Appearance: Normal appearance. She is not ill-appearing, toxic-appearing or diaphoretic. HENT: Head: Normocephalic and atraumatic. Eyes: Pupils: Pupils are equal, round, and reactive to light. Neurological: Mental Status: She is alert and oriented to person, place, and time. . Assessment and Plan: Bonny was seen today for cough and headache. Diagnoses and all orders for this visit: Exposure to COVID-19 virus - CORONAVIRUS 2019 (COVID-19) - REF LAB; Future Explained and discussed covid19 s/s, tx Advised to quarantine for 2 weeks Rest Force fluids Take tyl as needed Call pcp for the result Follow these instructions at home: Pay attention to any changes in your symptoms. Take these actions to help with your discomfort: ?? Take medicines only as told by your health care provider. ? If you were prescribed an antibiotic medicine, take it as told by your health care provider. Do not stop taking the antibiotic even if you start to feel better. ? Talk with your health care provider before you take a cough suppressant medicine. ?? Drink enough fluid to keep your urine clear or pale yellow. ?? If the air is dry, use a cold steam vaporizer or humidifier in your bedroom or your home to helploosen secretions. ?? Avoid anything that causes you to cough at work or at home. ?? If your cough is worse at night, try sleeping in a semi-upright position. ?? Avoid cigarette smoke. If you smoke, quit smoking. If you need help quitting, ask your health care provider. ?? Avoid caffeine. ?? Avoid alcohol. ?? Rest as needed. Return for f/u with pcp when needed. documented in this encounter Miscellaneous Notes * Patient Instructions - Sofía Adam ARNP - 08/03/2019 10:30 AM EDT Images from the original note were not included. Patient Education Cough, Adult Coughing is a reflex that clears your throat and your airways. Coughing helps to heal and protect your lungs. It is normal to cough occasionally, but a cough that happens with other symptoms or lastsa long time may be a sign of a condition that needs treatment. A cough may last only 2-3 weeks (acute), or it may last longer than 8 weeks (chronic). What are the causes? Coughing is commonly caused by: ?? Breathing in substances that irritate your lungs. ?? A viral or bacterial respiratory infection. ?? Allergies. ?? Asthma. ?? Postnasal drip. ?? Smoking. ?? Acid backing up from the stomach into the esophagus (gastroesophageal reflux). ?? Certain medicines. ?? Chronic lung problems, including COPD (or rarely, lung cancer). ?? Other medical conditions such as heart failure. Follow these instructions at home: Pay attention to any changes in your symptoms. Take these actions to help with your discomfort: ?? Take medicines only as told by your health care provider. ? If you were prescribed an antibiotic medicine, take it as told by your health care provider. Do not stop taking the antibiotic even if you start to feel better. ? Talk with your health care provider before you take a cough suppressant medicine. ?? Drink enough fluid to keep your urine clear or pale yellow. ?? If the air is dry, use a cold steam vaporizer or humidifier in your bedroom or your home to helploosen secretions. ?? Avoid anything that causes you to cough at work or at home. ?? If your cough is worse at night, try sleeping in a semi-upright position. ?? Avoid cigarette smoke. If you smoke, quit smoking. If you need help quitting, ask your health care provider. ?? Avoid caffeine. ?? Avoid alcohol. ?? Rest as needed. Contact a health care provider if: ?? You have new symptoms. ?? You cough up pus. ?? Your cough does not get better after 2-3 weeks, or your cough gets worse. ?? You cannot control your cough with suppressant medicines and you are losing sleep. ?? You develop pain that is getting worse or pain that is not controlled with pain medicines. ?? You have a fever. ?? You have unexplained weight loss. ?? You have night sweats. Get help right away if: ?? You cough up blood. ?? You have difficulty breathing. ?? Your heartbeat is very fast. This information is not intended to replace advice given to you by your health care provider. Make sure you discuss any questions you have with your health care provider. Document Released: 09/24/2011 Document Revised: 09/02/2016 Document Reviewed: 06/04/2015 [employer] Patient Education ?? 2019 [employer] documented in this encounter Plan of Treatment [...] Date/Time Associated Diagnosis Comments SCANNED RADIOLOGY REPORT 10/30/2020 9:03 AM EDT SCANNED LABS 10/30/2020 9:03 AM EDT CORONAVIRUS 2019 (COVID-19) - REF LAB Routine 08/03/2019 10:33 AM EDT Exposure to COVID-19 virus documented in this encounter Results * SCANNED LABS (10/30/2020 9:03 AM EDT) 10/30/2020 9:03 AM EDT us Unknown Unknown HEMATOLOGY ORDERABLES Final Resu lt * SCANNED RADIOLOGY REPORT (10/30/2020 9:03 AM EDT) Anatomical Region Laterality Modality Other 10/30/2020 9:03 AM EDT us Unknown Unknown IMG DIAGNOSTIC IMAGING ORDERABLE S Final Result * CORONAVIRUS 2019 (COVID-19) - REF LAB (08/03/2019 10:33 AM EDT) CORONAVIRUS [id number] Negative Not Detected 08/04/2019 3:08 PM EDT EXTERNAL LAB Swab SPECIMEN FROM NASOPHARYNGEAL STRUCTURE / Unknown 08/03/2019 10:33 AM EDT 08/03/2019 10:33 AM EDT Narrative EXTERNAL LAB - 08/04/2019 3:08 PM EDT Test performed by reference lab: [facility]. See scanned report. Caution should be exercised when interpreting negative results. A negative result does not rule out COVID-19 and cannot be used as sole basis for treatment or patient management decisions. If COVID-19 is still suspected following a negative result, re-testing should be considered. us Sofía Adam [facility] LAB SEND OUT ORDERABLES Final Re sult EXTERNAL LAB See Scanned Report documented in this encounter Visit Diagnoses Diagnosis Exposure to COVID-19 virus- Primary documented in this encounter Additional Health Concerns Infection Onset Date Last Indicated Resolved Time R/O COVID-19 08/03/2019 08/03/2019 08/04/2019 3:08 PM EDT Assessment Noted Time PHQ-9 Depression Total Score: 22 18/2 019 9:00 AM EDT PHQ-2 Depression Total Score: 6 20 19 9:00 AM EDT documented as of this encounter Care Teams Liquor Store Manager Relationship Specialty Start Date End Date Nehemias Barron MD [address] [facility] [place] [address] PCP - General 12/01/10 Easton Thompson MD [address] [place] [address] [address] [place] [address] Physician Obstetrics & Gynecology 01/29/14 Radha Wild APRN [address] [place] [address] Nurse Practitioner 11/04/15 documented as of this encounter
--- OUTSIDE RECORDS SUMMARY | 2024-03-07 05:06 | XMS_ITS | Encounter Summary ---
Author Organization [place] [address] Care Team Providers Care Children'S Ministries Director Name Role Phone Nehemias Barron MD Primary Care Provider Easton Thompson MD Unavailable [phone] Radha Wild OCCUPATIONAL HEALTH NURSING DIRECTOR Unavailable [phone] Reason for Visit * Reason Comments Abdominal Pain x 2 weeks Vaginal Pain Test Period one month lat e Encounter Details Date Type Department Care Team (Latest Contact Info) Description 09/22/2017 2:45 PM EDT Office Visit SEP [facility] [address] [facility] [place] [address] Nehemias Barron MD [address] [place] [address] UTI (urinary tract infection), uncomplicated (Primary Dx); Possible exposure to STD Social History Tobacco Use Types Packs/Day Years [...] Taken Comments Blood Pressure - - Pulse 119 09/22/2017 3:04 PM EDT Temperature 36.5 ??C (97.7 ??F) 09/22/2017 3:04 PM ED T Respiratory Rate - - Oxygen Saturation 98% 09/22/2017 3:04 PM EDT Inhaled Oxygen Concentration - - Weight 63 kg (138 lb 12.8 oz) 09/22/2017 3:04 PM EDT Height - - Body Mass Index 23.1 11/10/2016 8:50 PM EDT documented in this [...] times daily for 7 days. 14 Tab 09/22/2017 09/29/2017 documented in this encounter Progress Notes * Nehemias Barron MD - 09/22/2017 2:45 PM EDT Subjective Chief Complaint Patient presents with ??? Abdominal Pain x 2 weeks ??? Vaginal Pain ??? Test Period one month late Lower abd pain, subrapubic No urine symp Worse during intercourse , BF, monogamous X 1 wk Pt concerned due to hx cervical dysplasia, had normal pap 12/2016 No vag DC No FC Review of Systems All other systems reviewed and are negative. Objective Pulse 119 Temp 97.7 ??F (36.5 ??C) (Forehead) Wt 138 lb 12.8 oz (63 kg) SpO2 98% BMI 23.10 kg/m?? Physical Exam Constitutional: She is oriented to person, place, and time. She appears well- developed and well-nourished. No distress. Eyes: Conjunctivae are normal. No scleral icterus. Cardiovascular: Normal rate, regular rhythm and normal heart sounds. No murmur heard. No carotid bruits Pulses 2 + equal throughout Pulmonary/Chest: Effort normal and breath sounds normal. Abdominal: Soft. Bowel sounds are normal. She exhibits no distension and no mass. There is no tenderness. There is no rebound and no guarding. Musculoskeletal: She exhibits no edema. Neurological: She is alert and oriented to person, place, and time. Nursing note and vitals reviewed. Diagnoses and all orders for this visit: UTI (urinary tract infection), uncomplicated - POCT URINALYSIS DIPSTICK - ciprofloxacin HCl (CIPRO) 500 mg Oral Tablet; Take 1 Tab by mouth 2 times daily for 7 days. Dispense: 14 Tab; Refill: 0 - URINE CULTURE (NO STAIN); Future Possible exposure to STD - CHLAMYDIA/GC; Future - CHLAMYDIA/GC BY TMA hcg neg UA with mod leukocytes and nitrite positive, will tx as UTI Will screen GC/Chla Reassured pt, pap utd and normal, will plant fu for routine pap in SEP If issues persist, let me know [facility] Documentation Medication Compliance: Compliant all the time Understanding of Current Medications: Good Medication Compliance Barriers: None or N/A Self-Management Tools: N/A, no chronic conditions Self-Management Ability: Good Willingness to Adopt Healthy Behaviors: Good Potential Barriers to completing treatment plans today: No significant barriers [facility] Flowsheet was completed/reviewed as part of today's visit. Educated patient regarding the diagnosis, medication/treatment, goals, self- management tools and instructions based on their care plan. They verbalized understanding of the education given on the After Visit Summary [AVS] for today's visit. A copy of the AVS was provided either in writing and/or via [employer]. A new medicine was not prescribed on this visit. documented in this encounter Plan of [...] Name Priority Date/Time Associated Diagnosis Comments CHLAMYDIA/GC Routine 09/22/2017 3:28 PM EDT Possible exposure to STD CHLAMYDIA/GC BY TMA Routine 09/22/2017 3 :28 PM EDT Possible exposure to STD URINE CULTURE (NO STAIN) Routine 09/22/2017 3:28 PM EDT UTI (urinary tract infection), uncomplicated POCT URINALYSIS DIPSTICK Routine 09/22/2017 3:06 PM EDT UTI (urinary tract infection), uncomplicated documented in this encounter Results * CHLAMYDIA/GC BY TMA (09/22/2017 3:28 PM EDT) Chlamydia trachomatis Not Detected Not Detected 09/24/2017 12:35 PM EDT PREFERRED [employer] Neisseria gonorrhoeae Not Detected Not Detected 09/24/2017 12:35 PM EDT PREFERRED [employer] Urine URINE SPECIMEN COLLECTION / Unknown 09/22/2017 3:28 PM EDT 09/22/2017 3:28 PM EDT Narrative PREFERRED LAB [employer], [facility] - 09/24/2017 12:35 PM EDT Testing methodology is waste transportation technician mediated amplification (TMA) using the Aptima Combo 2 assay from [employer]. A negative result does not completely rule [...] characteristics of this test were validated by [facility]. This assay is FDA cleared to test the following specimens: clinician-collected endocervical, vaginal and male urethral swab specimens, patient collected vaginal specimens within a clinic setting, Thin Prep Specimens in PreservCyt Solution, and first-stream, unpreserved male urine specimens. Testing on female urine is not FDA approved by this methodology, but has been developed and validated by the [facility] laboratory.?? Detailed methodology is available upon request. Nehemias Barron MD MICROBIOLOGY - GENERAL ORDERA BLES Final Result [facility] [address] [facility] , [address] [place] [id number] * (ABNORMAL) URINE CULTURE (NO STAIN) (09/22/2017 3:28 PM EDT) Culture Positive Growth(A) 09/24/2017 2:03 PM EDT [facility] Culture >[id number] CFU/mL Escherichia coli SUSCEPTIBI LITY RESULT 09/24/2017 2:03 PM EDT [facility] Urine URINE SPECIMEN COLLECTION, CLEAN CATCH / Unknown 09/22/2017 3:28 PM EDT 09/22/2017 3:28 PM EDT Narrative Organism Antibiotic Method Susceptibility Escherichia [...] ug/mL: Susceptible Escherichia coli Levofloxacin SUSCEPTIBILITY RESULT 0.5 ug/mL: Susceptible Escherichia coli Nitrofurantoin SUSCEPTIBILITY RESULT <=16 ug/mL: Susceptible Escherichia coli Piperacillin/Tazobactam SUSCEPTIBILIT Y RESULT <=4 ug/mL: Susceptible Escherichia coli Tobramycin SUSCEPTIBILITY RESULT <=1 ug/mL: Susceptible Escherichia coli Trimethoprim/Sulfame tho xazole SUSCEPTIBILITY RESULT >=320 ug/mL: Resistant Nehemias Barron MD MICROBIOLOGY - GENERAL ORDERA BLES Final Result Performing Organization Address City/[facility]/ZIP Co de Phone Number [facility] [email or web address] [address] , [place] [address] * (ABNORMAL) POCT URINALYSIS DIPSTICK (09/22/2017 3:06 PM EDT) Color, UA CLEAR,YELL OW,ORANGE, RUST SEP OFFICE Clarity, UA CLEAR,CLOU DY SEP OFFICE Glucose, UA neg G/DL% SEP OFFICE Bilirubin, UA neg POS/NEG SEP OFFICE Ketones, UA neg POS/NEG SEP technicians and trades workers Grav, UA 1.030 1.001 - 1.035 G/DL SEP OFFICE Blood, UA neg POS/NEG SEP OFFICE pH, UA 6.0 5.0 - 8 SEP OFFICE Protein, UA neg POS/NEG SEP OFFICE Urobilinogen, UA 3.5(A) 0.2 - 1.0 MG/DL SEP OFFICE Leukocytes, UA 125 POS/NEG SEP OFFICE Nitrite, UA pos POS/NEG SEP OFFICE UA Appear POC SEP OFFICE Lot Number [id number] SEP OFFICE Expiration Date 05/28/2019 SEP OFFICE SeriAl # SEP OFFICE Urine 09/22/2017 3:06 PM EDT us Nehemias Barron MD POINT OF CARE TEST ORDERABLES Final Result Performing Organization Address City/[facility] Co de Phone Number SEP OFFICE documented in this encounter Visit Diagnoses Diagnosis UTI (urinary tract infection), uncomplicated- Primary Urinary tract infection, site not specified Possible exposure to STD Other specified personal history presenting hazards to health documented in this encounter Care Teams Children'S Ministries Director Relationship Specialty Start Date End Date Nehemias Barron MD [address] [place] [address] PCP - General 12/01/10 Easton Thompson MD [address] [place] [address] [address] [place] [address] Physician Obstetrics & Gynecology 01/29/14 Radha Wild APRN [address] [place] [address] Nurse Practitioner 11/04/15 documented as of this encounter
--- OUTSIDE RECORDS SUMMARY | 2024-03-07 05:06 | XMS_ITS | Encounter Summary ---
Author Organization [place] [address] Care Team Providers Care Battery Mechanic Name Role Phone Nehemias Barron MD Primary Care Provider [phone] Easton Thompson MD Unavailable [phone] Radha Wild APRN Unavailable [phone] Reason for Visit * Reason Onset Date Comments Care Management - Chart Review 10/08/2016 C marina Review-Patient discharged from ED 10/07/2016 Encounter Details Date Type Department Care Team (Latest Contact Info) Description 10/08/2016 Patient Outreach [facility] [address] [place] [address] Shraddha Dolan LPN Care Management - Chart Review (Chart Review-Patient discharged from ED 10/07/2016) Social History Tobacco Use Types Packs/Day Years [...] documented in this encounter Progress Notes * Shraddha Dolan LPN - 10/08/2016 11:08 AM EDT [facility] reviewed chart due to ED visit (10/07/2016). Patient not a candidate to be followed [...] structures documented in this encounter Care Teams Battery Mechanic Relationship Specialty Start Date End Date Nehemias Barron MD [address] [facility] [phone] PCP - General 12/01/10 Easton Thompson MD [address] [place] [address] [address] [place] [address] Physician Obstetrics & Gynecology 01/29/14 Radha Wild APRN [address] [place] [address] Nurse Practitioner 11/04/15 documented as of this encounter
--- OUTSIDE RECORDS SUMMARY | 2024-03-07 05:07 | XMS_ITS | Encounter Summary ---
Author Organization [place] [address] Care Team Providers Care Vault Maker Name Role Phone Nehemias Barron MD Primary Care Provider Easton Thompson MD Unavailable [phone] Encounter Details Date Type Department Care Team (Latest Contact Info) Description 07/23/2015 8:00 AM EDT - 07/23/2015 11:59 PM EDT Hospital Encounter [facility] [place] [id number] Discharge Disposition: Home or Self Care Social History Tobacco Use Types Packs/Day Years Used Date Smoking Tobacco: Every Day Cigarettes 1 18.9 Started: 04/11/2005 Smokeless Tobacco: Never Comments:info refused Alcohol Use Standard Drinks/Week Comments Not Asked 0 (1 standard drink = 0.6 oz [...] Sign Reading Time Taken Comments Blood Pressure 94/53 07/23/2015 8:44 AM EDT Pulse 55 07/23/2015 8:44 AM EDT Temperature 36.7 ??C (98.1 ??F) 07/23/2015 8:44 AM ED T Respiratory Rate 16 07/23/2015 8:44 AM EDT Oxygen Saturation - - Inhaled Oxygen Concentration - - Weight - - Height - - Body Mass Index - - documented in this encounter Functional Status * Is the person deaf or does he/she have serious difficulty hearing? Answer Date of Assessment Author No 07/21/2015 5:41 PM GLORYT Garret Brand RN * Is the person [...] Garret Colon RN documented in this encounter Medications at Time of Discharge ibuprofen (ADVIL;MOTRIN) 600 mg Oral Tablet Take 1 Tab by mouth every 6 hours as needed for Pain. 60 Tab 1 07/21/2015 6 oxyCODONE-acetam inophen (PERCOCET) 5-325 mg Oral Tablet Take 1-2 Tabs by mouth every 4 hours as needed for Pain (For moderate to severe pain unrelieved by oral non-opioid). 30 Tab 0 07/21/2015 6 documented as of this encounter Discharge Disposition Disposition Code Departure Means Destination Home or Self Care documented in this encounter Miscellaneous Notes * Patient Instructions - Estrella Gurrola RN - 07/23/2015 8:[address] [facility] MATERNAL DISCHARGE INSTRUCTIONS If you have questions or concerns about yourself, call your doctor. Feel free to call the [facility] at if we can help you. FOLLOW UP APPOINTMENT: Call the office of [facility]/Dr Tabares to schedule your follow up appointment for 6 weeks. MEDICATIONS: You have received prescriptions for the following medications. Take as directed. Ibuprofen: for cramping and mild pain, Percocet: for severe/incisional pain. May be taken with ibuprofen, Vitamins: for supplement 1 tablet daily Patient and/or family verbalize understanding on how to take medications. Yes Discharge Instructions: Rest: Plan for rest periods 3-4 times/day. Elevate feet when sitting for swelling. Drink 6-8 glasses fluids/daily., Breast Engorgement: Cold compresses to full breasts 10-15 minutes to reduce swelling and for discomfort. Avoid heat. Wear snug fitting bra. Written discharge instructions given from the Care Center, patient verbalizes understanding. documented in this encounter Plan of Treatment Not on file documented as of this encounter Visit Diagnoses Not on filedocumented in this encounter Care Teams Vault Maker Relationship Specialty Start Date End Date Nehemias Barron MD [address] [place] [id number] PCP - General 12/01/10 Easton Thompson MD [address] [place] [address] [address] [place] [address] Physician Obstetrics & Gynecology 01/29/14 documented as of this encounter
--- OUTSIDE RECORDS SUMMARY | 2024-03-07 05:07 | XMS_ITS | Encounter Summary ---
Author Organization [facility] [place] [address] Care Team Providers Care Administrative Coordinator Name Role Phone Nehemias Barron MD Primary Care Provider [phone] Easton Thompson MD Unavailable [phone] Encounter Details Date Type Department Care Team (Latest Contact Info) Description 05/14/2015 10:50 AM EST - 05/14/2015 11:59 PM [facility] Hospital Encounter [facility] [address] [facility] [place] [address] Traumatic injury during in second trimester (Primary Dx); Supervision of normal , second trimester; Lymphadenopathy, posterior cervical; Ecchymosis; Syncope, vasovagal Discharge Disposition: Home or Self Care Social History Tobacco Use Types Packs/Day Years Used Date Smoking Tobacco: Every Day Cigarettes 0.5 8 Smokeless Tobacco: Never Comments:info refused Alcohol Use [...] hearing? Answer Date of Assessment Author No 05/08/2015 10:38 PM Cassy Trujillo RN * Is the person blind or does he/she have serious difficulty seeing even when wearing glasses? Answer Date of Assessment Author No 05/08/2015 10:38 PM Cassy Trujillo RN * Does this person have serious difficulty walking or climbing stairs? Answer Date of Assessment Author No 05/08/2015 10:38 PM Cassy Trujillo RN * Does this person have difficulty dressing or bathing? Answer Date of Assessment Author No 05/08/2015 10:38 PM Cassy Trujillo RN * Because of a physical, mental or emotional condition, does this person have difficulty doing errands alone such as visiting a doctor's office or shopping? Answer Date of Assessment Author No 05/08/2015 10:38 PM Cassy Trujillo RN documented as of this encounter Mental Status * Because of a physical, mental or emotional condition, does this person have serious difficulty concentrating, remembering or making decisions? Answer Entry Date Author No 05/08/2015 10:38 PM Cassy Trujillo RN documented in this encounter Medications at Time of Discharge acetaminophen Oral TabIndications:A bdominal pain in , antepartum Take 325 mg by mouth every 4 hours as needed for Pain. 6 doxylamine-pyrid oxine (DICLEGIS) 10-10 mg Oral Tablet, Delayed Release (E.C.) Take by mouth daily. 6 malathion (OVIDE) 0.5 % Top LotionIndication s:Head lice Apply topically See Admin Instructions. See admin instructions. 1 Bottle 1 04/29/2014 6 ondansetron (ZOFRAN-ODT) 4 mg Oral Tablet, Rapid Dissolve Take 4 mg by mouth every 6 hours as needed for Nausea. 6 documented as of this encounter Discharge Disposition Disposition Code Departure Means Destination Home or Self Care documented in this encounter Plan of Treatment Scheduled Orders Name Type Priority Associated Diagnoses Orde r Schedule OP VENIPUNCTURE CHARGE Lab Timed Supervision of normal , second trimester Traumatic injury during in second trimester Lymphadenopathy, posterior cervical Ecchymosis Syncope, vasovagal One Time for 1 Occurrences starting 05/14/2015 until 05/14/2015 documented as of this encounter Procedures Procedure Name Priority Date/Time Associated Diagnosis Comments PREG GLUCOSE SCREEN Routine 05/14/2015 1 2:15 PM EST Supervision of normal , second trimester documented in this encounter Results * PREG GLUCOSE SCREEN (05/14/2015 12:15 PM EST) Preg Glucose Screen 155 mg/dL [facility] Blood specimen (specimen) UPPER LIMB STRUCTURE / Unknown 05/14/2015 12:15 PM EST 05/14/2015 12:15 PM EST us Kash Tabares MD CHEMISTRY ORDERABLES Final Resu lt [facility] [address] [place] [address] documented in this encounter Visit Diagnoses Diagnosis Traumatic injury during in second trimester- Primary Supervision of normal , second trimester Lymphadenopathy, posterior cervical Ecchymosis Other specified circulatory system disorders Syncope, vasovagal Syncope and collapse documented in this encounter Care Teams Administrative Coordinator Relationship Specialty Start Date End Date Nehemias Barron MD [address] [place] [phone] PCP - General 12/01/10 Easton Thompson MD [address] [place] [address] [address] [place] [address] Physician Obstetrics & Gynecology 01/29/14 documented as of this encounter
--- OUTSIDE RECORDS SUMMARY | 2024-03-07 05:07 | XMS_ITS | Encounter Summary ---
Author Organization [place] [address] Care Team Providers Care Assembly Supervisor Name Role Phone Nehemias Barron MD Primary Care Provider [phone] Easton Thompson MD Unavailable [phone] Encounter Details Date Type Department Care Team (Late st Contact Info) Description 05/15/2015 Orders Only [facility] [address] [place] [address] Ciera Lira, RMRigo Abnormal glucose tolerance test in (Primary Dx) Social History Tobacco Use Types [...] Cassy Trujillo RN documented in this encounter Plan of Treatment Scheduled Orders Name Type Priority Associated Diagnoses Orde r Schedule GLUCOSE TOLERANCE 3 HR (BASE,1H,2H,3H) Lab Timed Abnormal glucose tolerance test in 1 Occurrences starting 05/15/2015 until 05/15/2016 documented as of this encounter Visit Diagnoses Diagnosis Abnormal glucose tolerance test in - Primary documented in this encounter Care Teams Assembly Supervisor Relationship Specialty Start Date End Date Nehemias Barron MD [address] [place] [phone] PCP - General 12/01/10 Easton Thompson MD [address] [place] [address] [address] [place] [address] Physician Obstetrics & Gynecology 01/29/14 documented as of this encounter
--- OUTSIDE RECORDS SUMMARY | 2024-03-07 05:07 | XMS_ITS | Encounter Summary ---
Author Organization [place] [address] Care Team Providers Care Professor Of Food Biochemistry Name Role Phone Nehemias Barron MD Primary Care Provider [phone] Easton Thompson MD Unavailable [phone] Reason for Visit * Reason Onset Date Comments Results 05/14/2015 Visit Follow Up 05/14/2015 Encounter Details Date Type Department Care Team (Late Contact Info) Description 05/14/2015 Telephone [facility] [address] [place] [address] Kash Tabares MD [address] [facility] [address] [place] [address] Results; Visit Follow Up Social History Tobacco Use [...] Cassy Trujillo RN documented in this encounter Miscellaneous Notes * Telephone Encounter - Ciera Dawson RMA - 05/14/2015 3:48 PM EST Laboratory results received, patient notified by: Patient informed directly. * Telephone Encounter - Ciera Dawson RMA - 05/14/2015 3:47 PM EST ----- Message from Kash Tabares MD sent at 05/14/2015 3:02 PM EST ----- Please let pt know GCT was elevated 155, rec GTT please order and have pt schedule, thanks. documented in this encounter Plan of Treatment Not on file documented as of this encounter Visit Diagnoses Not on filedocumented in this encounter Care Teams Professor Of Food Biochemistry Relationship Specialty Start Date End Date Nehemias Barron MD [address] [place] [address] PCP - General 12/01/10 Easton Thompson MD [address] [facility] [address] [place] [address] Physician Obstetrics & Gynecology 01/29/14 documented as of this encounter
--- OUTSIDE RECORDS SUMMARY | 2024-03-07 05:07 | XMS_ITS | Encounter Summary ---
Author Organization [place] [address] Care Team Providers Care Outcomes Specialist Name Role Phone Nehemias Barron MD Primary Care Provider [phone] Easton Thompson MD Unavailable [phone] Reason for Visit * Reason Comments Contractions * Auth/Cert/Inpt Specialty Diagnoses / Procedures Referred By Contac t Referred To Contact Diagnoses Normal labor and delivery Referral ID Status Reason Start Date Expiration Date Visits Re quested Visits Authorized [id number] 1 1 Encounter Details Date Type Department Care Team (Latest Contact Info) Description 07/16/2015 12:25 AM EDT - 07/16/2015 5:11 PM EDT [facility] [place] [address] Kash Tabares MD [address] [facility] [address] [place] [address] Discharge Disposition: Home or Self Care Social History Tobacco Use Types Packs/Day Years Used Date Smoking Tobacco: Every Day Cigarettes 1 18.9 Started: 04/11/2005 Smokeless Tobacco: Never Tobacco Cessation:Ready to Q uit: No Comments:info refused Alcohol Use Standard Drinks/Week Comments [...] Sign Reading Time Taken Comments Blood Pressure 98/57 07/16/2015 2:25 PM EDT Pulse 82 07/16/2015 2:25 PM EDT Temperature 36.6 ??C (97.9 ??F) 07/16/2015 2:25 PM ED T Respiratory Rate 18 07/16/2015 2:25 PM EDT Oxygen Saturation - - Inhaled Oxygen Concentration - - Weight 64.9 kg (143 lb) 07/16/2015 12:44 AM EDT Height 165.1 cm (5' 5 ) 07/16/2015 12:44 AM EDT Body Mass Index 23.8 07/16/2015 12:44 AM EDT documented in this encounter Functional Status * Is the person deaf or does he/she have serious difficulty hearing? Answer Date of Assessment Author No 07/16/2015 4:40 PM EDT Karin Navarro RN * Is the person blind or does he/she have serious difficulty seeing even when wearing glasses? Answer Date of Assessment Author No 07/16/2015 4:40 PM EDT Karin Navarro RN * Does this person have serious difficulty walking or climbing stairs? Answer Date of Assessment Author No 07/16/2015 4:40 PM EDT Karin Navarro RN * Does this person have difficulty dressing or bathing? Answer Date of Assessment Author No 07/16/2015 4:40 PM EDT Karin Navarro RN * Because of a physical, mental or emotional condition, does this person have difficulty doing errands alone such as visiting a doctor's office or shopping? Answer Date of Assessment Author No 07/16/2015 4:40 PM EDT Karin Navarro RN documented as of this encounter Mental Status * Because of a physical, mental or emotional condition, does this person have serious difficulty concentrating, remembering or making decisions? Answer Entry Date Author No 07/16/2015 4:40 PM EDT Karin Navarro RN documented in this encounter Discharge Instructions * Discharge Instructions* Karin Navarro RN - 07/16/2015 4:41 PM EDT [facility] Movement Record (Kick Count) In order to monitor your infant's well being, you have been asked to keep a record of the baby's movements. Consistent movement is one of the most important indicators of health. The instructions for this area are as follows: 1. Sit or lie down on your left side for 30 minutes three times a day, morning, afternoon and evening. 2. Count and write down as you go the number of movements felt in each time period. 3. After the evening count, add up the numbers of all three times and write it in the total box. 4. If the baby does not move in the first 30 minutes, the baby may be sleeping so continue the examfor another 30 minutes. You might want to try drinking some cool juice or gently rub the abdomen tostimulate the baby. You could also eat ice, celery or an apple to help. Bring the Kick Count Sheet with you if you come to the hospital and when you come for your visits. Call immediately if: 1. The movement does not add up to 6 in one hour as seen with 2. The total for the day is less than half of the total of the day before as seen with * For example: Morning Afternoon Evening Total Day 1 25 30 23 78 Day 2 4 12 8 30* If you have any questions or problems, please call your Physician???s office for further instructions. [facility] Movement Record DATE MORNING AFTERNOON EVENING TOTAL [facility] Discharge Instructions Bonny Olivares [id number] [address] [facility] [address] Activity Restrictions: {Activity Restrictions:[id number]} Diet: Call MD for any of the following or any other concerns Signs of Labor: More than 6 contractions/hour Decreased baby movement. Kick counts Water breaks or leaking of fluid Persistent headache Spotting or bleeding Double or blurred vision Elevated temperature >100.5 or chills Severe heartburn or indigestion Persistent nausea or vomiting Swelling of face or hands Pain, burning or difficulty urinating Constant abdominal pain *Contact your doctor before resuming any medications from home not listed above, questions about food/drug interactions, and diet or activity instructions. PAIN ASSESSMENT Location: Type of Pain: Please continue your current pain management regimen. IF PAIN INTENSIFIES OR PAIN IS UNRELIEVED WITH MEDICATIONS ORDERED, CALL YOUR PHYSICIAN. Remember to contact your physician for a follow-up appointment as instructed. Follow-up with in {[id number]-NO-CO-NUMBERS:[id number]} {TIME; UNITS DAY/WEEK/MONTH:} Phone # . Discharge instructions were given to patient with patient's/family full understanding. Patient Signature Date: Nurse Signature Date: [facility] Movement Record (Kick Count) In order to monitor your 's well being, you have been asked to keep a record of the baby's movements. Consistent movement is one of the most important indicators of health. The instructions for this area are as follows: 5. Sit or lie down on your left side for 30 minutes three times a day, morning, afternoon and evening. 6. Count and write down as you go the number of movements felt in each time period. 7. After the evening count, add up the numbers of all three times and write it in the total box. 8. If the baby does not move in the first 30 minutes, the baby may be sleeping so continue the examfor another 30 minutes. You might want to try drinking some cool juice or gently rub the abdomen tostimulate the baby. You could also eat ice, celery or an apple to help. Bring the Kick Count Sheet with you if you come to the hospital and when you come for your visits. Call immediately if: 3. The movement does not add up to 6 in one hour 4. The total for the day is less than half of the total of the day before as seen with * For example: Morning Afternoon Evening Total Day 1 25 30 23 78 Day 2 4 12 8 30* If you have any questions or problems, please call your Physician???s office for further instructions. [facility] Movement Record DATE MORNING AFTERNOON EVENING TOTAL [facility] Discharge Instructions Bonny Olivares [phone] [address] [facility] [address] Activity Restrictions: No Restrictions Diet: Regular Call MD for any of the following or any other concerns Signs of Labor: More than 6 contractions/hour Decreased baby movement. Kick counts Water breaks or leaking of fluid Persistent headache Spotting or bleeding Double or blurred vision Elevated temperature >100.5 or chills Severe heartburn or indigestion Persistent nausea or vomiting Swelling of face or hands Pain, burning or difficulty urinating Constant abdominal pain *Contact your doctor before resuming any medications from home not listed above, questions about food/drug interactions, and diet or activity instructions. PAIN ASSESSMENT Location: Type of Pain: Please continue your current pain management regimen. IF PAIN INTENSIFIES OR PAIN IS UNRELIEVED WITH MEDICATIONS ORDERED, CALL YOUR PHYSICIAN. Remember to contact your physician for a follow-up appointment as instructed. Follow-up with in 6 days On 07/24/2015 Discharge instructions were given to patient with patient's/family full understanding. Patient Signature Date: Nurse Signature Date: 07/16/2015 documented in this encounter Medications at Time of Discharge acetaminophen Oral TabIndications:Ab dominal pain in , antepartum Take 325 mg by mouth every 4 hours as needed for Pain. 6 Blood-Glucose Meter [facility] MiscIndications:G estational diabetes mellitus in second trimester, unspecified diabetic control [address] [facility].(Non-Drug; Combo Route) route 4 times daily. 1 Each 0 05/16/2015 6 doxylamine-pyrido xine (DICLEGIS) 10-10 mg Oral Tablet, Delayed Release (E.C.) Take by mouth daily. [address] [facility] MiscIndications:G estational diabetes mellitus in second trimester, unspecified diabetic control [address] [facility].(Non-Drug; Combo Route) route 4 times daily. 1 box 3 05/19/2015 6 malathion (OVIDE) 0.5 % Top LotionIndications :Head lice Apply topically See Admin Instructions. See admin instructions. 1 Bottle 1 04/29/2014 6 ondansetron (ZOFRAN-ODT) 4 mg Oral Tablet, Rapid Dissolve Take 4 mg by mouth every 6 hours as needed for Nausea. 6 documented as of this encounter Discharge Disposition Disposition Code Departure Means Destination Home or Self Care documented in this encounter Progress Notes * Karin Navarro RN - 07/16/2015 5:08 PM EDT No cerivcal change, irregular contractions. Dr. Tabares discussed with patient discharge home. No restrictions, Pt. Instructed to return to hospital if any changes. Pt. Will follow up with office staff at scheduled appointment on 07/24/15. Pt. Verbalized understanding, discharged home * Silke Cristina RN - 07/16/2015 5:12 AM EDT Pt off EFM to ambulate in halls x45 min * Silke Cristina RN - 07/16/2015 4:20 AM EDT Report received from triage nurse. Pt ambulated to room 1321 * Moon Baldwin RN - 07/16/2015 3:22 AM EDT Report given to Dr. Soler, admit orders received. * Moon Baldwin RN - 07/16/2015 1:14 AM EDT 07/16/15 0109 Heart Rate Mode External US;Removed (pt up to walk) Baseline Rate 130 bpm Baseline Classification Normal Variability 6-25 BPM Pattern A Movement Present Uterine Activity Mode Palpation;[place];Removed (pt up to walk) Contraction Frequency irregular Contraction Intensity Irritability Resting Tone Palpated Soft NST NST Performed? Yes $ NST charge Yes Nonstress Test Uterine Findings Uterine Irritability Yes Contractions Irregular Nonstress Test Fetus A Variability 6-25 BPM Decelerations None Accelerations Yes Acoustic Stimulator No Baseline 130 BPM Interpretation Fetus A Nonstress Test Interpretation Reactive Overall Impression Reassuring Cosigned by Dieter Soler MD at 08/06/2015 2:05 PM EDT * Moon Baldwin RN - 07/16/2015 1:05 AM EDT Report to Dr. Soler, Pt may walk and be rechecked or go home per MD. * Moon Baldwin RN - 07/16/2015 1:03 AM EDT LM for Dr Soler documented in this encounter H&P Notes * Kash Tabares MD - 07/16/2015 12:09 PM EDT HPI: 24 yo @ 36+5 admitted for obs d/t possible labor. Poss cvx change in triage overnight. Has continued to contracted irreg with pain assoc, denies bleedig / lof. Good FM. EFM has remained reassuring. LMP: Patient's last menstrual period was 10/25/2014 (exact date). GRIFFIN: Estimated Date of Delivery: 08/08/15 EGA:36w5d U/S: see reports Other findings: n/a course: see prob list PMH/PSH: Past Medical History Diagnosis Date ??? Knee injury chip in left knee but has problems with both knee's ??? 06/2011 ??? 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 RA (rheumatoid arthritis) (HCC) ??? Melanoma in situ of back (HCC) 06/2012 ??? Dizziness occassional will black out, gets dizzy, has had most of her life, family MD is aware and never has found out cause ??? Bladder infection in the past ??? UTI (urinary tract infection) had about 4-5 while ??? Anemia during ??? Cervical dysplasia 2010, 2013 ??? Vaginal bleeding 05/29/2013 has been to ER twice since biopsy 06/26/2013, has had bleeding with large clots and pain, was toldthat she has cyst on ovaries, currrently having black/mayorga stringy discharge , Dr Castellanos office has been informed of this by patient on 06/22/2013 and they were not able to see patient in office before surgery ??? Psoriasis ??? Psoriasis ??? Bronchitis, chronic (HCC) ??? Headache(784.0) ??? Depression ppd ??? Motion sickness ??? Cancer (HCC) melanoma back ??? Diet controlled gestational diabetes mellitus in third trimester 06/24/2015 Past Surgical History Procedure Laterality Date ??? Appendectomy age 7 ??? Cervix biopsy 2010, 05/29/2013 ??? Skin cancer excision 06/2012 melanoma back ??? Leep N/A 06/27/2013 LOOP EXCISION PROCEDURE (LEEP); Surgeon: Sachin Castellanos MD; Location: [facility] MAIN OR; Service: Gynecology ??? Dilation and curettage of uterus N/A 02/20/2014 DILATION & CURETTAGE SUCTION EVACUATION FOR MISSCARRIAGE ; Surgeon: Kash Tabares MD; Location: [facility] MAIN OR; Service: Gynecology OB History Para Term AB SAB TAB Ectopic Multiple Living 3 1 1 0 1 1 0 0 0 1 # Outcome Date GA Lbr Michele/2nd Weight Sex Delivery Anes PTL Lv 3 Current 2 2013 7w5d 1 Term 07/02/11 37w0d 2807 g (6 lb 3 oz) F Vag-Spont EPI Y Comments: System Generated. Please review and update details. Recent Results (from the past 6048 hour(s)) ANTIBODY SCREEN IGG Collection Time: 07/16/15 4:05 AM Result Value Ref Range ABSC IgG Int Negative ABORH Collection Time: 07/16/15 4:05 AM Result Value Ref Range ABORh Int AB POS SYPHILIS SCREEN WITH REFLEX RPR QUANT Collection Time: 07/16/15 4:05 AM Result Value Ref Range TREP(SYPHILIS) AB INDEX <0.10 <=1.09 Index Value POCT URINALYSIS DIPSTICK Collection Time: 07/15/15 11:40 AM Result Value Ref Range Protein, UA neg Pos/Neg URINALYSIS Collection Time: 05/18/15 11:25 PM Result Value Ref Range UA Protein Trace (A) Negative THYROID STIMULATING HORMONE Collection Time: 03/22/15 7:12 AM Result Value Ref Range TSH 2.070 0.270 - 4.200 mcIU/mL RUBELLA ANTIBODY IGG Collection Time: 01/15/15 2:26 PM Result Value Ref Range Rubella IgG 5.880 Index Value HIV AG/AB Collection Time: 01/15/15 2:26 PM Result Value Ref Range HIV Ag/AB Non-Reactive HEPATITIS B SURFACE ANTIGEN Collection Time: 01/15/15 2:26 PM Result Value Ref Range Hep Bs Ag Negative Negative Family Hx: Family History Problem Relation Age of Onset ??? Cancer Maternal Grandmother melanoma ??? Anesth Problems Neg Hx Social Hx: History Social History ??? Marital Status: Single Spouse Name: N/A ??? Number of Children: N/A ??? Years of Education: N/A Social History Main Topics ??? Smoking status: Current Every Day Smoker -- 1.00 packs/day for 8 years Types: Cigarettes Start date: 04/11/2005 ??? Smokeless tobacco: Never Used Comment: info refused ??? Alcohol Use: No ??? Drug Use: No ??? Sexual Activity: Partners: Male Other Topics Concern ??? None Social History Narrative Allergies: Allergies Allergen Reactions ??? Sulfa (Sulfonamide Antibiotics) Swelling and Rash throat closes up, rash, and red everywhere Meds: Current Facility-Administered Medications Medication Dose Route Frequency Provider Last Rate Last Dose ??? lactated ringers infusion Intravenous Continuous Dieter Soler MD 125 mL/hr at 07/16/15 1103 ??? oxytocin (PITOCIN) 20 units in LR 1000 mL (after placenta delivery) Intravenous Continuous PRN Dieter Soler MD ??? penicillin G potassium 5 Million Units in dextrose 5% 100 mL IVPB 5 Million Units Intravenous Once Dieter Soler MD Followed by ??? penicillin G potassium 2.5 Million Units in dextrose 5% 50 mL IVPB 2.5 Million Units Intravenous 6 times per day Dieter Soler MD ROS: as per HPI + Review of Systems Constitutional: Negative for activity change, appetite change and fatigue. HENT: Negative. Negative for neck pain and neck stiffness. Eyes: Negative. Respiratory: Negative. Negative for chest tightness and shortness of breath. Cardiovascular: Negative. Negative for chest pain. Gastrointestinal: Negative. Negative for abdominal distention. Genitourinary: above Musculoskeletal: Negative. Skin: Negative for color change and rash. Neurological: Negative. Psychiatric/Behavioral: Negative. Physical Exam: Vitals: Patient Vitals for the past 24 hrs: Temp Temp src Pulse Resp BP Patient Position 07/16/15 1055 97.7 ??F (36.5 ??C) Oral 75 18 98/62 mmHg Semi Fowlers 07/16/15 0918 97.8 ??F (36.6 ??C) Oral 75 18 117/73 mmHg Semi Fowlers 07/16/15 0709 97.7 ??F (36.5 ??C) Oral 73 18 99/60 mmHg Semi Fowlers 07/16/15 0506 97.6 ??F (36.4 ??C) Axillary 82 18 114/57 mmHg Semi Fowlers 07/16/15 0045 - - 91 - 105/56 mmHg - 07/16/15 0044 - - - 16 - - 07/16/15 004 97.8 ??F (36.6 ??C) Oral - - - - HEENT:op clear Neck:supple Lungs: unlabored breathing Abd:soft / nt / gravid Fundal height:appropriate Presentation:vtx Extremities:no c/c/e Neuro:grossly intact VE: 3-4 / 80 / post, unchanged on mult checks throughout am / afternoon per RN and I did one check before FHT: has remained reassuring, cat 1, normal baseline on extended monitoring [place]: occ ctxs and poss irrit present Labs: Lab Results Component Value Date WBC 6.5 07/16/2015 HGB 11.5* 07/16/2015 HCT 33.1* 07/16/2015 MCV 97.2 07/16/2015 PLT 178 07/16/2015 A/P: 36+5 / ctxs No cervix change through am / afternoon EFM reassuring Discussed no indication for IOL at this GA, pt / SO understanding Percocet x 1 tab given for therapeutic rest Call office anytime with concerns, f/u next scheduled appt if no issues in interim documented in this encounter Plan of Treatment Not on file documented as of this encounter Procedures Procedure Name Priority Date/Time Associated Diagnosis Comments DRUGS OF ABUSE, SCREEN ONLY, URINE STAT 07/16/2015 4:15 AM EDT SYPHILIS SCREEN WITH REFLEX RPR QUANT STAT 07/16/2015 4:05 AM EDT CBC STAT 07/16/2015 4:05 AM EDT ABORH STAT 07/16/2015 4:05 AM EDT ANTIBODY SCREEN IGG STAT 07/16/2015 4 :05 AM EDT documented in this encounter Results * DRUGS OF ABUSE, SCREEN ONLY, URINE (07/16/2015 4:15 AM EDT) Cannaboinoid Screen, Urine Absent 50 ng/mL [facility] Benzodiazepines Screen Absent 200 ng/mL [facility] Cocaine(Metab.)Scr een, Urine Absent 150 ng/mL [facility] Opiate 300 Screen Absent 300 ng/mL [facility] Barbiturate Screen, Urine Absent 200 ng/mL [facility] Amphetamine Screen, Urine Absent 500 ng/mL [facility] Phencyclidine Screen Absent 25 ng/mL [facility] Methadone Screen, Urine Absent 300 ng/mL [facility] Oxycodone Screen Absent 100 ng/mL [facility] 6 AM (Heroin) Screen Absent 10 ng/mL [facility] Buprenorphine Screen Absent 5 ng/mL [facility] Creatinine Ur >25.0 mg/dL [facility] Comment: Greater than 20: Consistent with valid sample Greater than 2 but less than 20: Possible dilution Less than 2: Questionable valid sample Drug Screen Note These drug classes have been screened by immunoassay and are for medical purposes only. Results should not be used for non-medical purposes. ??These results are only valid for urine specimens. Any contamination with vaginal pool/amniotic fluid could cause erroneous results. ??If confirmation is desired, please place a separate order for each drug confirmation. Specimens will be saved for 3 business days should additional orders/testing be desired. [facility] Urine specimen (specimen) 07/16/2015 4:15 AM EDT 07/16/2015 4:15 AM EDT Dieter Soler MD URINE ORDERABLES Final R esult Performing Organization Address City/[facility] [place] [address] * ANTIBODY SCREEN IGG (07/16/2015 4:05 AM EDT) ABSC IgG Int Negative [facility] Blood specimen (specimen) 07/16/2015 4:05 AM EDT 07/16/2015 4:16 AM EDT Dieter Soler MD BLOOD BANK ORDERABLES Fi nal Result Performing Organization Address [facility] [place] [address] * ABORH (07/16/2015 4:05 AM EDT) ABORh Int AB POS [facility] Blood specimen (specimen) 07/16/2015 4:05 AM EDT 07/16/2015 4:16 AM EDT Dieter Soler MD BLOOD BANK ORDERABLES Fi nal Result Performing Organization Address [facility]/ZIP Co de Phone Number [facility] [address] [place] [address] * SYPHILIS SCREEN WITH REFLEX RPR QUANT (07/16/2015 4:05 AM EDT) Pathologist [facility] TREP(SYPHILIS) AB INDEX <0.10 <=1.09 Index Value [facility] Comment: <0.90 - Negative 0.90 to 1.00 - Equivocal ?? Patients with equivocal results should be retested in 7-14 days. >=1.10 - Positive NOTE: ??All equivocal and positive results will be reflexed to Quantitative Non-Treponemal(RPR)test. Blood specimen (specimen) UPPER LIMB STRUCTURE / Unknown 07/16/2015 4:05 AM EDT 07/16/2015 4:16 AM EDT Dieter Soler MD CHEMISTRY ORDERABLES Fin al Result Performing Organization Address [facility] Co de Phone Number [facility] [address] [place] [address] * (ABNORMAL) CBC (07/16/2015 4:05 AM EDT) Pathologist [facility] WBC 6.5 4.0 - 11.0 x10(3)/mcL [facility] RBC 3.40(L) 3.80 - 5.10 x10(6)/mcL [facility] Hgb 11.5(L) 12.0 - 15.6 gm/dL [facility] Hct 33.1(L) 35.7 - 45.9 % [facility] MCV 97.2 82.5 - 99.8 fL [facility] MCH 33.8 27.0 - 34.3 pg [facility] MCHC 34.8 32.1 - 35.3 gm/dL [facility] RDW 12.6 11.5 - 15.0 % [facility] Platelet 178 144 - 423 x10(3)/mcL [facility] MPV 8.9 6.8 - 10.8 fL [facility] Blood specimen (specimen) UPPER LIMB STRUCTURE / Unknown 07/16/2015 4:05 AM EDT 07/16/2015 4:16 AM EDT us Dieter Soler MD HEMATOLOGY ORDERABLES Fi nal Result [facility] [address] [place] [address] documented in this encounter Visit Diagnoses Diagnosis uterine contractions in third trimester, antepartum- Primary documented in this encounter Administered Medications Inactive Administered Medications - up to 1 most recent administrations Medication Order MAR Action Action Date Dose Rate Site lactated ringers infusion Intravenous, at 125 mL/hr, CONTINUOUS, Starting on Tue07/16/15 at 0415, Until Tue07/16/15 at 2110 IV Restarted 07/16/2015 11:03 AM EDT 125 mL/hr oxyCODONE-acetaminophen (PERCOCET) 5-325 mg per tablet 1 Tab 1 Tablet, Oral, EVERY 3 HOURS PRN, Starting on Tue07/16/15 at 1528, Until Tue07/16/15 at 211, Pain, Maximum adult dose of acetaminophen is 4000 mg from all sources in 24 hours. Given 07/16/2015 5:00 PM EDT 1 Tablet documented in this encounter Active and Recently Administered Medications Times are shown in EDT. Continuous Medication Order 07/14/2015 07/15/2015 07/16/2015 lactated ringers infusion (CANCELED) Intravenous, at 125 mL/hr, CONTINUOUS, Starting on Tue07/16/15 at 0415, Until Tue07/16/15 at 2110 0355 (New Bag - Prov ider: Silke Cristina RN - Comment: #[phone] (New Bag - Provider: Karin Navarro RN - Comment: bag #2)[id number] (Stopped - Provider: Karin Navarro RN)1103 (IV Restarted - Provider: Karin Navarro RN - Comment: bag #2)[id number] (Stopped - Provider: Karin Navarro RN) PRN Medication Order 07/14/2015 07/15/2015 07/16/2015 oxyCODONE-acetaminophen (PERCOCET) 5-325 mg per tablet 1 Tab (CANCELED) 1 Tablet, Oral, EVERY 3 HOURS PRN, Starting on Tue07/16/15 at 1528, Until Tue07/16/15 at 2111, Pain, Maximum adult dose of acetaminophen is 4000 mg from all sources in 24 hours. 1700 (Given - Provid er: Karin Navarro RN) documented in this encounter Orders Medications Ordered That Horace ht Not Have Been Administered Count Last Ordered Date First Ordered Date oxytocin (PITOCIN) 20 units in LR 1000 mL (after placenta delivery) 1 07/16/2015 penicillin G potassium 2.5 M illion Units in dextrose 5% 50 mL IVPB 1 07/16/2015 penicillin G potassium 5 Mil lion Units in dextrose 5% 100 mL IVPB 1 07/16/2015 Lab Orders Without Results Count Last Ordered D ate First Ordered Date TYPE AND SCREEN 1 07/16/2015 Nursing Count Last Ordered Date First Orde red Date ADMISSION 1 07/16/2015 documented in this encounter Care Teams Outcomes Specialist Relationship Specialty Start Date End Date Nehemias Barron MD [address] [place] [address] PCP - General 12/01/10 Easton Thompson MD [address] [place] [address] [address] [place] [address] Physician Obstetrics & Gynecology 01/29/14 documented as of this encounter
--- OUTSIDE RECORDS SUMMARY | 2024-03-07 05:07 | XMS_ITS | Encounter Summary ---
Author Organization [place] [address] Care Team Providers Care Sorter Lumber Straightener Name Role Phone Nehemias Barron MD Primary Care Provider [phone] Easton Thompson MD Unavailable [phone] Reason for Visit * Reason Comments Routine Visit Encounter Details Date Type Department Care Team (Latest Contact Info) Description 06/24/2015 11:20 AM EDT ROUTINE FOLLOW UP OB VISIT SEP [facility] Crit [address] [place] [address] [facility] [place] [id number] Encounter for supervision of other normal in third trimester (Primary Dx); Diet controlled gestational diabetes mellitus in third trimester; Traumatic injury during in second trimester Social History Tobacco Use Types Packs/Day Years [...] Taken Comments Blood Pressure - - Pulse - - Temperature - - Respiratory Rate - - Oxygen Saturation - - Inhaled Oxygen Concentration - - Weight 63.5 kg (140 lb) 06/24/2015 11:52 AM EDT Height - - Body Mass Index 23.3 06/03/2015 10:42 AM EST documented in this encounter Functional Status * Is the person deaf or does he/she have serious difficulty hearing? Answer Date of Assessment Author No 05/19/2015 12:54 AM Tata Sosa RN * Is the person blind or does he/she have serious difficulty seeing even when wearing glasses? Answer Date of Assessment Author No 05/19/2015 12:54 AM Tata Sosa RN * Does this person have serious difficulty walking or climbing stairs? Answer Date of Assessment Author No 05/19/2015 12:54 AM Tata Sosa RN * Does this person have difficulty dressing or bathing? Answer Date of Assessment Author No 05/19/2015 12:54 AM Tata Sosa RN * Because of a physical, mental or emotional condition, does this person have difficulty doing errands alone such as visiting a doctor's office or shopping? Answer Date of Assessment Author No 05/19/2015 12:54 AM Tata Sosa RN documented as of this encounter Mental Status * Because of a physical, mental or emotional condition, does this person have serious difficulty concentrating, remembering or making decisions? Answer Entry Date Author No 05/19/2015 12:54 AM Tata Sosa RN documented in this encounter Progress Notes * Prabha Sheikh MA - 06/24/2015 1:03 PM EDT Results for orders placed or performed in visit on 06/24/15 POCT URINALYSIS DIPSTICK Result Value Ref Range Color, UA yellow Clear, Yellow, Ola, Rust Clarity, UA clear Clear, Cloudy Glucose, UA neg g/dl% Bilirubin, UA neg Pos/Neg Ketones, UA neg Pos/Neg Spec Grav, UA 1.030 1.001 - 1.035 g/dl Blood, UA neg Pos/Neg pH, UA 6.0 5.0 - 8 Protein, UA neg Pos/Neg Urobilinogen, UA 0.2 0.2 - 1.0 mg/dL Leukocytes, UA neg Pos/Neg Nitrite, UA neg Pos/Neg UA Appear POC na Lot Number [id number] Expiration Date SeriAl # na * Sabine Putnam CNM - 06/24/2015 12:11 PM EDT S: Feeling well. Denies regular ctx/vb/lof. Reports + FM. States she is taking blood sugars, but not very regular and all the values have been good. Still taking Procardia as needed, states it is working well. O: See flowsheet. A: IUP @ 33w4d S = D Gest Diabetes P: Discussed imp of checking blood sugar and sticking to diet, encouraged to bring in log at next visit. Cont Procardia Discussed cultures to be obtained at next visit. RTO in 2 weeks. Agree with assessment and documentation of SNM * Prabha Sheikh MA - 06/24/2015 11:52 AM EDT 33w4d Edema Yes ankles Contractions Yes irr Loss of Fluid No Bleeding No documented in this encounter Miscellaneous Notes * Patient Instructions - Sabine Putnam CNM - 06/24/2015 12:03 PM EDT Labor Information labor is when labor starts at less than 37 weeks of . The normal length of a is 39 to 41 weeks. CAUSES Often, there is no identifiable underlying cause as to why a woman goes into labor. One of the most common known causes of labor is infection. Infections of the uterus, cervix, vagina, amniotic sac, bladder, kidney, or even the lungs (pneumonia) can cause labor to start. Other suspected causes of labor include: ?? Urogenital infections, such as yeast infections and bacterial vaginosis. ? Uterine abnormalities (uterine shape, uterine septum, fibroids, or bleeding from the placenta). ? A cervix that has been operated on (it may fail to stay closed). ? Malformations in the fetus. ? Multiple gestations (twins, triplets, and so on). ? Breakage of the amniotic sac. ?? RISK FACTORS ?? Having a previous history of labor. ? Having premature rupture of membranes (PROM). ? Having a placenta that covers the opening of the cervix (placenta previa). ? Having a placenta that separates from the uterus (placental abruption). ? Having a cervix that is too weak to hold the fetus in the uterus (incompetent cervix). ? Having too much fluid in the amniotic sac (polyhydramnios). ? Taking illegal drugs or smoking while . ? Not gaining enough weight while . ? Being younger than 18 and older than 35 years old. ? Having a low socioeconomic status. ? Being . SYMPTOMS Signs and symptoms of labor include: ?? Menstrual-like cramps, abdominal pain, or back pain. ?? Uterine contractions that are regular, as frequent as six in an hour, regardless of their intensity (may be mild or painful). ?? Contractions that start on the top of the uterus and spread down to the lower abdomen and back. ? A sense of increased pelvic pressure. ? A watery or bloody mucus discharge that comes from the vagina. ?? TREATMENT Depending on the length of the and other circumstances, your health care provider may suggest bed rest. If necessary, there are medicines that can be given to stop contractions and to mature the lungs. If labor happens before 34 weeks of , a prolonged hospital stay may be recommended. Treatment depends on the condition of both you and the fetus. WHAT SHOULD YOU DO IF YOU THINK YOU ARE IN LABOR? Call your health care provider right away. You will need to go to the hospital to get checked immediately. HOW CAN YOU PREVENT LABOR IN FUTURE PREGNANCIES? You should: ?? Stop smoking if you smoke.? Maintain healthy weight gain and avoid chemicals and drugs that are not necessary. ?? Be watchful for any type of infection. ?? Inform your health care provider if you have a known history of labor. Document Released: 06/17/2004 Document Revised: 11/28/2013 Document Reviewed: 04/30/2013 ExitCare?? Patient Information ??2015 [employer]. This information is not intended to replace advice given to you by your health care provider. Make sure you discuss any questions you have with your health care provider. documented in this encounter Plan of Treatment Not on file documented as of this encounter Procedures Procedure Name Priority Date/Time Associated Diagnosis Comments POCT URINALYSIS DIPSTICK Routine 06/24/2015 1:02 PM EDT Encounter for supervision of other normal in third trimester documented in this encounter Results * POCT URINALYSIS DIPSTICK (06/24/2015 1:02 PM EDT) Color, UA yellow Clear, Yellow, Ola, Rust SEP OFFICE Clarity, UA clear Clear, Cloudy SEP OFFICE Glucose, UA neg g/dl% SEP OFFICE Bilirubin, UA neg Pos/Neg SEP OFFICE Ketones, UA neg Pos/Neg SEP irrigationist Grav, UA 1.030 1.001 - 1.035 g/dl SEP OFFICE Blood, UA neg Pos/Neg SEP OFFICE pH, UA 6.0 5.0 - 8 SEP OFFICE Protein, UA neg Pos/Neg SEP OFFICE Urobilinogen, UA 0.2 0.2 - 1.0 mg/dL SEP OFFICE Leukocytes, UA neg Pos/Neg SEP OFFICE Nitrite, UA neg Pos/Neg SEP OFFICE UA Appear POC na SEP OFFICE Lot Number [id number] SEP OFFICE Expiration Date SEP OFFICE SeriAl # na SEP OFFICE Urine specimen (specimen) 06/24/2015 1:02 PM EDT Sabine Putnam CNM POINT OF CARE TEST ORDERABL ES Final Result SEP OFFICE documented in this encounter Visit Diagnoses Diagnosis Encounter for supervision of other normal in third trimester- Primary Diet controlled gestational diabetes mellitus in third trimester Traumatic injury during in second trimester documented in this encounter Care Teams Sorter Lumber Straightener Relationship Specialty Start Date End Date Nehemias Barron MD [address] [place] [address] PCP - General 12/01/10 Easton Thompson MD [address] [place] [address] Physician Obstetrics & Gynecology 01/29/14 documented as of this encounter
--- OUTSIDE RECORDS SUMMARY | 2024-03-07 05:07 | XMS_ITS | Encounter Summary ---
Author Organization [place] [address] Care Team Providers Care Assembly Machine Tender Name Role Phone Nehemias Barron MD Primary Care Provider [phone] Easton Thompson MD Unavailable Reason for Visit * Auth/Cert/Inpt Specialty Diagnoses / Procedures Referred By Contac t Referred To Contact Diagnoses Normal labor Referral ID Status Reason Start Date Expiration Date Visits Re quested Visits Authorized [id number] 1 1 Encounter Details Date Type Department Care Team (Late st Contact Info) Description 07/20/2015 2:43 PM EDT Anesthesia Event EDG LDRP One [facility] [place] [address] Valerie Martin MD [address] [facility] [place] [address] Gladys King CRNA [address] [place] [address] Anesthesia Record Procedure Summary Procedure Name Responsible Anesthesiologist Anesthesia Start Time Anesthesia Stop Time LABOR ANALGESIA Valerie Martin MD 07/20/15 1443 07/20/15 1818 Events Date Time Event Comment 07/20/2015 1434 1443 An Start 1444 Immediate Pre Anesthetic Ass es 1452 Block/ Injection Placed 1502 Face Time 1643 Face Time 1737 Face Time 1818 An Stop Meds Name Total bupivacaine (MARCAINE) injection 0.25% ( PF) 5 mL fentaNYL (SUBLIMAZE) 50 mcg/mL injection 100 mcg fentaNYL 3 mcg/mL and bupivacaine 0.125 % epidural 200 ml (L/D only) 40.28 mL * Agents No agents on file. * Blood No blood administrations on file. Lines, Drains, and Airways Type Details Placement Removal Peripheral IV 07/20/15; 0145; 18; Left; Wrist; SJohnson Wagoner RN; 1; None; 07/20/15; 214607/20/15 0145 by Pau Wagoner, OSCAR 07/20/152146 by Michelle Choe RN Epidural 07/20/15; 1442 (crea zane via procedure documentation); Chlora-prep; Lumbar 07/20/15 1442 by Gladys King, POLY PACKER AND HEAT SEALER 07/20/152147 by Michelle Choe RN documented in this encounter Social History Tobacco [...] of Assessment Author No 07/16/2015 4:40 PM Karin Mckeon RN * Is the person blind or does he/she have serious difficulty seeing even when wearing glasses? Answer Date of Assessment Author No 07/16/2015 4:40 PM Karin Mckeon RN * Does this person have serious difficulty walking or climbing stairs? Answer Date of Assessment Author No 07/16/2015 4:40 PM Karin Mckeon RN * Does this person have difficulty dressing or bathing? Answer Date of Assessment Author No 07/16/2015 4:40 PM Karin Mckeon RN * Because of a physical, mental or emotional condition, does this person have difficulty doing errands alone such as visiting a doctor's office or shopping? Answer Date of Assessment Author No 07/16/2015 4:40 PM Karin Mckeon RN documented as of this encounter Mental Status * Because of a physical, mental or emotional condition, does this person have serious difficulty concentrating, remembering or making decisions? Answer Entry Date Author No 07/16/2015 4:40 PM EDT Karin Navarro RN documented in this encounter Procedure Notes * Gladys King CRNA - 07/20/2015 3:03 PM EDTAssociated Order(s): ANE EPIDURAL BLOCK Epidural Block by Anesthesia Procedure Date/Time: 07/20/2015 2:42 PM Patient Location: OB Reason for Block: labor epidural Staff: Resident/POLY PACKER AND HEAT SEALER: GLADYS KING Performed by: TEVIN Preanesthetic checklist: patient identified, IV checked, site marked, risks and benefits discussed,surgical consent, monitors and equipment checked, pre-op evaluation, timeout performed and anesthesia consent Epidural: Immediate pre anesthetic assessment completed? Yes Patient Position: Sitting Prep: ChloraPrep Monitoring: Continuous pulse ox Approach: Midline Location: Lumbar (1-5) Injection Technique: KELBY saline Needle and Epidural Catheter: Needle Type: Tuohy Needle Gauge: 17 Needle Length: 9 cm Test Dose Time: 14:53 Test Dose: Lidocaine 1.5% with epinephrine 1-to-200,000 and negative Test Dose Amount: 3 Number of Attempts: 1 Loading Dose: Bupivicaine 0.25% and Fentanyl 100 mcg Loading dose amount: 5 ml Assessment: Sensory Level: T10 Complications: None Notes: Epi x1. Easy. Neg heme/CSF documented in this encounter OR Notes * Anesthesia Postprocedure Evaluation - Ruth Frey MD - 07/21/2015 8:39 AM EDT Post-Anesthesia Evaluation Note Patient Name: Bonny Olivares Patient Date: July 21, 2015 Patient Location: Patient room Post OP Vitals: stable Level of Consciousness: awake, alert and oriented Post Anesthesia Pain: adequate analgesia Airway Patency: patent Difficult Airway: no Respiratory: spontaneous ventilation Cardiovascular: stable and BP within 20% of baseline Hydration: euvolemic Nausea Controlled: yes Comments: Ambulating No WHITE * Anesthesia Preprocedure Evaluation - Gladys King CRNA - 07/20/2015 2:33 PM EDT Pre-Anesthesia Evaluation Note Patient Name: Bonny Olivares Sex: female Patient : 1990 Age: 24 y.o. Patient Date: July 20, 2015 Procedure: Labor epidural Anesthesia Evaluation No history of anesthetic complications Airway Mallampati: II TM distance: >3 FB Neck ROM: fullNo increased risk of difficult airway Dental - normal exam Pulmonary - negative ROS breath sounds clear to auscultation (+)a smoker (current), Cardiovascular - negative ROS Rhythm: regular Rate: normal Neuro/Psych - negative ROS GI/Hepatic/Renal - negative ROS Endo/Other - negative ROS (+) arthritis, Comments: Rheumatoid arthritis Hx of melanoma Current (+) gestational diabetes well controlled, Anesthesia Plan ASA 2 Anesthesia Plan: epidural Monitors: STD Anesthetic plan and risks discussed with patient. Use of blood products discussed with patient whom consented to blood products. documented in this encounter Plan of Treatment Not on file documented as of this encounter Procedures Procedure Name Priority Date/Time Associated Diagnosis Comments ANE EPIDURAL BLOCK Routine 07/20/2015 3: 04 PM EDT documented in this encounter Results * ANE EPIDURAL BLOCK (07/20/2015 3:04 PM EDT) Narrative [facility] - 07/20/2015 3:04 PM EDT Gladys King CRNA ? 07/20/2015 ??3:04 PM Epidural Block by Anesthesia Procedure Date/Time: 07/20/2015 2:42 PM Patient Location: ??OB Reason for Block: labor epidural ?? Staff: ??Resident/POLY PACKER AND HEAT SEALER: ??GLADYS KING ??Performed by: ??POLY PACKER AND HEAT SEALER Preanesthetic checklist: patient identified, IV checked, site marked, risks and benefits discussed, surgical consent, monitors and equipment checked, pre-op evaluation, timeout performed and anesthesia consent ?? Epidural: Immediate pre anesthetic assessment completed? Yes Patient Position: ??Sitting Prep: ChloraPrep ?? Monitoring: ??Continuous pulse ox Approach: ??Midline Location: ??Lumbar (1-5) Injection Technique: ??KELBY saline Needle and Epidural Catheter: ??Needle Type: ??Tuohy ??Needle Gauge: ??17 ??Needle Length: ??9 cm ??Test Dose Time: ??14:53 Test Dose: ??Lidocaine 1.5% with epinephrine 1-to-200,000 and negative Test Dose Amount: ??3 Number of Attempts: ??1 Loading Dose: ??Bupivicaine 0.25% and Fentanyl 100 mcg Loading dose amount: 5 ml Assessment: ??Sensory Level: ??T10 ??Complications: None Notes: ?? Epi x1. ??Easy. ??Neg heme/CSF us Gladys King POLY PACKER AND HEAT SEALER ANESTHESIA ORDERABLES Fin al Result [facility] [address] [place] [address] documented in this encounter Visit Diagnoses Not on filedocumented in this encounter Administered Medications Inactive Administered Medications - up to 1 most recent administrations Medication Order MAR Action Action Date Dose Rate Site bupivacaine (MARCAINE) 0.25 % (2.5 mg/mL) injection Epidural, PRN (Anesthesia), Starting on 07/20/15 at 1459, Until Tue07/20/15 at 1818, Anesthesia Intra-op Given 07/20/2015 2:59 PM EDT 5 mL fentaNYL (SUBLIMAZE) 50 mcg/mL injection 1 dose, Starting on Tue07/20/15 at 1441, Until Tue07/20/15 at 1459, GLADYS KING.: cabinet override Given 07/20/2015 2:59 PM EDT 100 mcg fentaNYL 3 mcg/mL and bupivacaine 0.125 % epidural 200 ml (L/D only) Epidural, TITRATED, Starting on Tue07/20/15 at 1445, Until Tu07/22/15 at 0259, Maintain IV during epidural infusion. Stop infusion and call Anesthesia if patient complains of numbness, tingling, weakness of hands, face or tongue, metallic taste in mouth, ringing in ears, or if patient overly sedated and difficult to arouse., Delivery Mode: Intermittent Mode, Amt/Dose (mL): 4.5, Dose Freq (min): 20 New Bag 07/20/2015 3:00 PM EDT 13.5 mL/hr 13.5 mL/hr documented in this encounter Care Teams Assembly Machine Tender Relationship Specialty Start Date End Date Nehemias Barron MD [address] [place] [address] PCP - General 12/01/10 Easton Thompson MD [address] [place] [address] [address] [place] [address] Physician Obstetrics & Gynecology 01/29/14 documented as of this encounter
--- OUTSIDE RECORDS SUMMARY | 2024-03-07 05:07 | XMS_ITS | Encounter Summary ---
Author Organization [facility] [place] [address] Care Team Providers Care Stores Despatch Hand Name Role Phone Nehemias Barron MD Primary Care Provider [phone] Easton Thompson MD Unavailable [phone] Encounter Details Date Type Department Care Team (Latest Contact Info) Description 05/15/2015 12:15 PM EST - 05/15/2015 11:59 PM EST Hospital En[facility] [place] [address] Abnormal glucose tolerance test in Discharge Disposition: Home or Self Care [...] r Schedule OP VENIPUNCTURE CHARGE Lab Timed Abnormal glucose tolerance test in One Time for 1 Occurrences starting 05/15/2015 until 05/15/2015 documented as of this encounter Procedures Procedure Name Priority Date/Time Associated Diagnosis Comments GLUCOSE 3 HOUR (GTT) Timed 05/15/2015 3:46 PM EST GLUCOSE 2 HOUR (GTT) Timed 05/15/2015 2:46 PM EST GLUCOSE 1 HOUR (GTT) Timed 05/15/2015 1:47 PM EST GLUCOSE BASELINE (GTT) Timed 05/15/2015 12:33 PM EST documented in this encounter Results * .GLUCOSE 3 HOUR (GTT) (05/15/2015 3:46 PM EST) Gluc 3 Hour 62 mg/dL [facility] Comment: Reference Range: (IADPSG/ADA) 100-g load < 140 mg/dL Blood specimen (specimen) 05/15/2015 3:46 PM EST 05/15/2015 3:46 PM EST Kash Tabares MD CHEMISTRY ORDERABLES Final Resu lt Performing Organization Address [facility] [place] [address] * .GLUCOSE 2 HOUR (GTT) (05/15/2015 2:46 PM EST) Gluc 2 Hour 156 mg/dL [facility] Comment: Reference Range: (IADPSG/ADA) < 155 mg/dL Non- ?< 140 mg/dL ?Normal 140 - 199 mg/dL ?Impaired Glucose Tolerance ??>= 200 mg/dL ?Suggestive of Diabetes Blood specimen (specimen) 05/15/2015 2:46 PM EST 05/15/2015 2:46 PM EST us Kash Tabares MD CHEMISTRY ORDERABLES Final Resu lt Performing Organization Address [facility] [place] [address] * .GLUCOSE 1 HOUR (GTT) (05/15/2015 1:47 PM EST) Gluc 1 Hour 181 mg/dL [facility] Comment: Reference Range: (IADPSG/ADA) ?< 180 mg/dL Non- ? N/A Blood specimen (specimen) 05/15/2015 1:47 PM EST 05/15/2015 1:47 PM EST us Kash Tabares MD CHEMISTRY ORDERABLES Final Resu lt Performing Organization Address [facility] Phone Number [facility] [address] [place] [address] * .GLUCOSE BASELINE (GTT) (05/15/2015 12:33 PM EST) Gluc Baseline 80 74 - 100 mg/dL [facility] Comment: Reference Range: ? (IADPSG/ADA) < 92 mg/dL Non- ? < 100 mg/dL ? Normal ? 110 - 125 mg/dL ?Impaired Fasting Glucose ?? >= 126 mg/dL ? Suggestive of Diabetes Blood specimen (specimen) 05/15/2015 12:33 PM EST 05/15/2015 12:33 PM EST us Kash Tabares MD CHEMISTRY ORDERABLES Final Resu lt Performing Organization Address [facility] Phone Number [facility] [address] [place] [address] documented in this encounter Visit Diagnoses Diagnosis Abnormal glucose tolerance test in documented in this encounter Orders Lab Orders Without Results Count Last Ordered D ate First Ordered Date GLUCOSE TOLERANCE 3 HR (BASE,1H,2H,3H) 1 documented in this encounter Care Teams Stores Despatch Hand Relationship Specialty Start Date End Date Nehemias Barron MD [address] [facility] [place] [id number] PCP - General 12/01/10 Easton Thompson MD [address] [place] [address] [address] [place] [address] Physician Obstetrics & Gynecology 01/29/14 documented as of this encounter
--- OUTSIDE RECORDS SUMMARY | 2024-03-07 05:07 | XMS_ITS | Encounter Summary ---
Author Organization [place] [address] Care Team Providers Care Remnant Sorter Name Role Phone Nehemias Barron MD Primary Care Provider [phone] Easton Thompson MD Unavailable [phone] Reason for Visit * Reason Onset Date Comments Other 07/16/2015 testing canceled Encounter Details Date Type Department Care Team (Late st Contact Info) Description 07/16/2015 Telephone [facility] Crit [address] [place] [address] Easton Thompson MD [address] [place] [address] Other (testing canceled) Social History Tobacco Use Types Packs/Day Years [...] Karin Navarro RN documented in this encounter Miscellaneous Notes * Telephone Encounter - Moon Dutton RMA - 07/16/2015 10:09 AM EDT Ana from [facility] in [place] called stating she received a gc/chlamydia specimen with the whiteswab and this can cause false positive, the blue swab needs to be used. She is canceling the order and the specimen will need to be collected. documented in this encounter Plan of Treatment Not on file documented as of this encounter Visit Diagnoses Not on filedocumented in this encounter Care Teams Remnant Sorter Relationship Specialty Start Date End Date Nehemias Barron MD [address] [place] [address] PCP - General 12/01/10 Easton Thompson MD [address] [place] [address] [address] [place] [address] Physician Obstetrics & Gynecology 01/29/14 documented as of this encounter
--- OUTSIDE RECORDS SUMMARY | 2024-03-07 05:07 | XMS_ITS | Encounter Summary ---
Author Organization [place] [address] Care Team Providers Care Manager Training And Development Name Role Phone Nehemias Barron MD Primary Care Provider [phone] Easton Thompson MD Unavailable [phone] Reason for Visit * Reason Onset Date Comments Results 05/16/2015 Visit Follow Up 05/16/2015 Encounter Details Date Type Department Care Team (Late Contact Info) Description 05/16/2015 Telephone [facility] [address] [place] [address] Kash Tabares MD [address] [facility] [address] [place] [address] Results; Visit Follow Up Social [...] Cassy Trujillo RN documented in this encounter Ordered Prescriptions Prescription Sig Dispense Quantity Refills Last Filled Start Date End Date Blood-Glucose Meter [facility] MiscIndications:Ges tational diabetes mellitus in second trimester, unspecified diabetic control 1 Kit by [facility].(Non-D rug; Combo Route) route 4 times daily. 1 Each 0 05/16/2015 07/21/2015 documented in this encounter Miscellaneous Notes * Telephone Encounter - Ciera Dawson RMA - 05/16/2015 3:22 PM EST Pt aware and verbalized understanding * Telephone Encounter - Ciera Dawson RMA - 05/16/2015 3:22 PM EST ----- Message from Kash Tabares MD sent at 05/16/2015 3:07 PM EST ----- Please let her know that her 3 hr test was positive, just slightly with her 1 and 2 hour values, but is diagnostic for GDM. She'll need to schedule DM testing please order. She'll also need to get glucometer and supplies rx'd for check four times daily, fasting and one hour after each meal, please assist her with that thanks. documented in this encounter Plan of Treatment Not on file documented as of this encounter Visit Diagnoses Diagnosis Gestational diabetes mellitus in second trimester, unspecified diabetic control- Primary documented in this encounter Care Teams Manager Training And Development Relationship Specialty Start Date End Date Nehemias Barron MD [address] [facility] [place] [id number] PCP - General 12/01/10 Easton Thompson MD [address] [place] [address] [address] [place] [address] Physician Obstetrics & Gynecology 01/29/14 documented as of this encounter
--- OUTSIDE RECORDS SUMMARY | 2024-03-07 05:07 | XMS_ITS | Encounter Summary ---
Author Organization [place] [address] Care Team Providers Care Critical Care Unit Nurse Name Role Phone Nehemias Barron MD Primary Care Provider [phone] Easton Thompson MD Unavailable [phone] Reason for Visit * Reason Comments Routine Visit Encounter Details Date Type Department Care Team (Latest Contact Info) Description 07/15/2015 10:20 AM EDT ROUTINE FOLLOW UP OB VISIT [facility] Crit [address] [place] [address] Easton Thompson MD [address] [place] [id number] Diet controlled gestational diabetes mellitus in third trimester (Primary Dx); Supervision of normal , third trimester Social History Tobacco Use Types Packs/Day [...] Sign Reading Time Taken Comments Blood Pressure 112/70 07/15/2015 11:40 AM EDT Pulse - - Temperature - - Respiratory Rate - - Oxygen Saturation - - Inhaled Oxygen Concentration - - Weight 64.9 kg (143 lb) 07/15/2015 11:40 AM EDT Height - - Body Mass Index 23.8 06/03/2015 10:42 AM EST documented in this [...] documented in this encounter Progress Notes * Easton Thompson MD - 07/15/2015 1:10 PM EDT Bonny Olivares is here today for an OB follow up appointment. She says the fetus is active. Denies regular contractions, leaking of fluid or bleeding. She does not have her blood sugar record with her today but says all her values are within normal limits. She takes Procardia intermittently. Last use three days ago. PE: Cultures taken. Cervix: 1 cm, 60 % effaced, vertex -3 station. Plan: May discontinue Procardia. Continue taking blood sugars. Warnings and movements discussed. RTO in 1 week . * Niki Fraser, ABR-OE - 07/15/2015 11:39 AM EDT [id number] Results for orders placed or performed in visit on 07/15/15 POCT URINALYSIS DIPSTICK Result Value Ref Range Color, UA yellow Clear, Yellow, [place], Rust Clarity, UA clear Clear, Cloudy Glucose, UA neg g/dl% Bilirubin, UA neg Pos/Neg Ketones, UA neg Pos/Neg Spec Grav, UA 1.020 1.001 - 1.035 g/dl Blood, UA neg Pos/Neg pH, UA 6.5 5.0 - 8 Protein, UA neg Pos/Neg Urobilinogen, UA 0.2 0.2 - 1.0 mg/dL Leukocytes, UA neg Pos/Neg Nitrite, UA neg Pos/Neg UA Appear POC na Lot Number [id number] Expiration Date 12/2016 SeriAl # na Edema Yes feet Contractions Yes but taking the procardia Loss of Fluid No Bleeding No 36 week gift was given to pt today. documented in this encounter Plan of Treatment Not on file documented as of this encounter Procedures Procedure Name Priority Date/Time Associated Diagnosis Comments POCT URINALYSIS DIPSTICK Routine 07/15/2015 11:40 AM EDT Diet controlled gestational diabetes mellitus in third trimester Supervision of normal , third trimester documented in this encounter Results * STREP B DNA (07/15/2015 12:20 PM EDT) Strep B DNA Negative [facility] Strep B Interp TEST INFORMATION: This qualitative assay utilizes molecular amplification to detect a portion of the Streptococcus agalactiae genome and is intended for a screen of antepartum women in 35-37 weeks gestation. ??This assay utilizes the [employer] by [employer] and its performance has been verified by [facility]. ??A negative result does not rule out the presence the Group B Strep in concentrations below the limit of detection for the assay. [facility] Genital 07/15/2015 12:2 0 PM EDT 07/15/2015 8:30 PM EDT Narrative [facility] - 07/17/2015 4:38 PM EDT Does pt have a severe PCN allergy?->No Easton Thompson MD MICROBIOLOGY - GENERAL ORDER MAURICE Final Result Performing Organization Address [facility] Co de Phone Number [facility] [address] [place] [id number] * POCT URINALYSIS DIPSTICK (07/15/2015 11:40 AM EDT) Color, UA yellow Clear, Yellow, [place], Rust [facility]ICE Clarity, UA clear Clear, Cloudy [facility] Glucose, UA neg g/dl% [facility] Bilirubin, UA neg Pos/Neg [facility] Ketones, UA neg Pos/Neg SEP heating and ventilating drafter Grav, UA 1.020 1.001 - 1.035 g/dl [facility] Blood, UA neg Pos/Neg [facility] pH, UA 6.5 5.0 - 8 [facility] Protein, UA neg Pos/Neg [facility] Urobilinogen, UA 0.2 0.2 - 1.0 mg/dL [facility] Leukocytes, UA neg Pos/Neg [facility] Nitrite, UA neg Pos/Neg SEP [facility] UA Appear POC na SEP OFFICE Lot Number [id number] SEP OFFICE Expiration Date 12/2016 SEP OFFICE SeriAl # na SEP OFFICE Urine specimen (specimen) 07/15/2015 11:40 AM EDT Easton Thompson MD POINT OF CARE TEST ORDERABLE S Final Result Performing Organization Address City/[facility]/ZIP Co de Phone Number SEP OFFICE documented in this encounter Visit Diagnoses Diagnosis Diet controlled gestational diabetes mellitus in third trimester- Primary Supervision of normal , third trimester Diet controlled gestational diabetes mellitus in third trimester Supervision of normal , third trimester documented in this encounter Discontinued Medications Medication Sig Discontinue Reason Start Date End Da te NIFEdipine (PROCARDIA) 10 mg Oral Capsule Take 1 Cap by mouth every 6 hours as needed (contractions). DELETE-Therapy completed 06/03/2015 07/15/2015 documented as of this encounter Orders Lab Orders Without Results Count Last Ordered D ate First Ordered Date CHLAMYDIA/GC BY TMA 1 07/15/2015 documented in this encounter Care Teams Critical Care Unit Nurse Relationship Specialty Start Date End Date Nehemias Barron MD [address] [facility] [place] [address] PCP - General 12/01/10 Easton Thompson MD [address] [place] [address] [address] [place], [place] [address] Physician Obstetrics & Gynecology 01/29/14 documented as of this encounter
--- OUTSIDE RECORDS SUMMARY | 2024-03-07 05:07 | XMS_ITS | Encounter Summary ---
Author Organization [place] [address] Care Team Providers Care Office Analyst Name Role Phone Nehemias Barron MD Primary Care Provider [phone] Easton Thompson MD Unavailable [phone] Reason for Visit * Reason Comments Routine Visit Encounter Details Date Type Department Care Team (Latest Contact Info) Description 06/03/2015 10:40 AM EST ROUTINE FOLLOW UP OB VISIT [facility] [address] [place] [address] Kash Tabares MD [address] [facility] [address] [place] [id number] Supervision of normal , third trimester (Primary Dx); contractions, third trimester Social History Tobacco Use Types [...] Sign Reading Time Taken Comments Blood Pressure 102/58 06/03/2015 10:42 AM EST Pulse - - Temperature - - Respiratory Rate - - Oxygen Saturation - - Inhaled Oxygen Concentration - - Weight 62.7 kg (138 lb 3.2 oz) 06/03/2015 10:42 AM EST Height 165.1 cm (5' 5 ) 06/03/2015 10:42 AM EST Body Mass Index 23 06/03/2015 10:42 AM EST documented in this [...] Tata Sosa RN documented in this encounter Ordered Prescriptions Prescription Sig Dispense Quantity Refills Last Filled Start Date End Date NIFEdipine (PROCARDIA) 10 mg Oral Capsule Take 1 Cap by mouth every 6 hours as needed (contraction s). 20 Cap 2 06/03/2015 07/15/2015 documented in this encounter Progress Notes * Kash Tabares MD - 06/03/2015 12:48 PM EST Good FM, was in triage yesterday for ctxs, cvx closed per pt, affirm pending, offered procardia prnfor now pt interested, discussed SE's, try evening / not when about to go to work or drive initially see how she feels after med, pt understanding, discussed utility of lt duty / try off work a couple of days pt declines states has to work Advised TDaP States BS has been good, just a couple elevated fastings, has to reschedule DM ed class Discussed heartburn meds ok to take RTO next week reassess, precautions reviewed * Prabha Sheikh MA - 06/03/2015 10:43 AM EST 30w4d Edema No Contractions Yes irr Loss of Fluid No Bleeding No Results for orders placed or performed in visit on 06/03/15 POCT URINALYSIS DIPSTICK Result Value Ref Range Color, UA yellow Clear, Yellow, [place], [place] Clarity, UA clear Clear, Cloudy Glucose, UA neg g/dl% Bilirubin, UA neg Pos/Neg Ketones, UA neg Pos/Neg Spec Grav, UA 1.020 1.001 - 1.035 g/dl Blood, UA neg Pos/Neg pH, UA 7.0 5.0 - 8 Protein, UA neg Pos/Neg Urobilinogen, UA 0.2 0.2 - 1.0 mg/dL Leukocytes, UA neg Pos/Neg Nitrite, UA neg Pos/Neg UA Appear POC na Lot Number [id number] Expiration Date SeriAl # na documented in this encounter Miscellaneous Notes * Patient Instructions - Kash Tabares MD - 06/03/2015 12:51 PM EST Images from the original note were not included. ABCs of A Antepartum care is very important. Be sure you see your doctor and get care as soon as youthink you are . At this time, you will be tested for infection, genetic abnormalities and potential problems with you and the . This is the time to discuss diet, exercise, work, medications, labor, pain medication during labor and the possibility of a delivery. Ask any questions that may concern you. It is important to see your doctor regularly throughout your .Avoid exposure to toxic substances and chemicals - such as cleaning solvents, lead and mercury, some insecticides, and paint. women should avoid exposure to paint fumes, and fumes that causeyou to feel ill, dizzy or faint. When possible, it is a good idea to have a pre- consultation with your caregiver to begin some important recommendations your caregiver suggests such as, taking folic acid, exercising, quitting smoking, avoiding alcoholic beverages, etc. B is the healthiest choice for both you and your baby. It has many nutritional benefitsfor the baby and health benefits for the mother. It also creates a very tight and loving rodriguez between the baby and mother. Talk to your doctor, your family and friends, and your employer about how you choose to feed your baby and how they can support you in your decision. Not all defects can be prevented, but a woman can take actions that may increase her chance of having a healthy baby. Many defects happen very early in , sometimes before a woman even knows she is . defects or abnormalities of any child in your or the father's family should be discussed with your caregiver. Get a good support bra as your breast size changes. Wear it especially when you exercise and when nursing. C Celebrate the news of your with the your spouse/father and family. Childbirth classes arehelpful to take for you and the spouse/father because it helps to understand what happens during the , labor and delivery. delivery should be discussed with your doctor so you are prepared for that possibility. The pros and cons of circumcision if it is a boy, should be discussed with your computer programming supervisor. Cigarette smoking during can result in low weight babies. Ithas been associated with infertility, miscarriages, tubal pregnancies, (mortality) andpoor health (morbidity) in childhood. Additionally, cigarette smoking may cause long-term learning disabilities. If you smoke, you should try to quit before getting and not smoke during the . Secondary smoke may also harm a mother and her developing baby. It is a good idea to ask people to stop smoking around you during your and after the baby is born. Extra calcium is necessary when you are and is found in your vitamin, in dairy products, green leafy vegetables and in calcium supplements. D A healthy diet according to your current weight and height, along with vitamins and mineral supplements should be discussed with your caregiver. Domestic abuse or violence should be made known to your doctor right away to get the situation corrected. Drink more water when you exercise to keep hydrated. Discomfort of your back and legs usually develops and progresses from the middle of the second trimester through to delivery of the baby. This is because of the enlarging baby and uterus, which may also affect your balance. Do not take illegal drugs. Illegal drugs can seriously harm the baby and you. Drink extra fluids (water is best) throughout to help your body keep up with the increases in your blood volume. Drink at least 6 to 8 glasses of water, fruit juice, or milk each day.A good way to know you are drinking enough fluid is when your urine looks almost like clear water or is very light yellow. E Eat healthy to get the nutrients you and your unborn baby need. Your meals should include the five basic food groups. Exercise (30 minutes of light to moderate exercise a day) is important and encouraged during , if there are no medical problems or problems with the . Exercise that causes discomfort or dizziness should be stopped and reported to your caregiver. Emotions during can change from being ecstatic to depression and should be understood by you, your partner and your family. F screening with ultrasound, amniocentesis and monitoring during and labor is common and sometimes necessary. Take 400 micrograms of folic acid daily both before, when possible, and during the first few months of to reduce the risk of defects of the brain and spine. All women who could possibly become should take a vitamin with folic acid, every day. It is also important to eat a healthy diet with fortified foods (enriched grain products, including cereals, rice, breads, and pastas) and foods with natural sources of folate (orange juice, green leafy vegetables, beans, peanuts, broccoli, asparagus, peas, and lentils). The father should be involved with all aspects of the including, the care, childbirth classes, labor, delivery, and time. Fathers may also have emotional concerns about being a father, financial needs, andraising a family. G Genetic testing should be done appropriately. It is important to know your family and the father's history. If there have been problems with pregnancies or defects in your family, report these to your doctor. Also, genetic counselors can talk with you about the information you might need in making decisions about having a family. You can call a major medical center in your area for help in finding a board-certified genetic counselor. Genetic testing and counseling should be done before when possible, especially if there is a history of problems in the mother's or father's family. Certain ethnic backgrounds are more at risk for genetic defects. H Get familiar with the hospital where you will be having your baby. Get to know how long it takes toget there, the labor and delivery area, and the hospital procedures. Be sure your medical insuranceis accepted there. Get your home ready for the baby including, clothes, the baby's room (when possible), furniture and car seat. Hand washing is important throughout the day, especially after handling raw meat and poultry, changing the baby's diaper or using the bathroom. This can help prevent the spread of many bacteria and viruses that cause infection. Your hair may become dry and thinner, but will return to normal a few weeks after the baby is born. Heartburn is a common problem that can be treated by taking antacids recommended by your caregiver, eating smaller meals 5 or 6 times a day, not drinking liquids when eating, drinking between meals and raising the head of your bed 2 to 3 inches. I Insurance to cover you, the baby, doctor and hospital should be reviewed so that you will be prepared to pay any costs not covered by your insurance plan. If you do not have medical insurance, there are usually clinics and services available for you in your community. Take 30 milligrams of iron during your as prescribed by your doctor to reduce the risk of low red blood cells (anemia) la ter in . All women of childbearing age should eat a diet rich in iron. J There should be a joint effort for the mother, father and any other children to adapt to the financially, emotionally, and psychologically during the . Join a support group for moms-to-be. Or, join a class on parenting or childbirth. Have the family participate when possible. K Know your limits. Let your caregiver know if you experience any of the following: ?? Pain of any kind. ?? Strong cramps. ?? You develop a lot of weight in a short period of time (5 pounds in 3 to 5 days). ?? Vaginal bleeding, leaking of amniotic fluid. ?? Headache, vision problems. ?? Dizziness, fainting, shortness of breath. ?? Chest pain. ?? Fever of 102?? F (38.9?? C) or higher. ?? Gush of clear fluid from your vagina. ?? Painful urination. ?? Domestic violence. ?? Irregular heartbeat (palpitations). ?? Rapid beating of the heart (tachycardia). ?? Constant feeling sick to your stomach (nauseous) and vomiting. ?? Trouble walking, fluid retention (edema). ?? Muscle weakness. ?? If your baby has decreased activity. ?? Persistent diarrhea. ?? Abnormal vaginal discharge. ?? Uterine contractions at 20-minute intervals. ?? Back pain that travels down your leg. L Learn and practice that what you eat and drink should be in moderation and healthy for you and yourbaby. Legal drugs such as alcohol and caffeine are important issues for women. There is nosafe amount of alcohol a woman can drink while . alcohol syndrome, a disorder characterized by growth retardation, facial abnormalities, and central nervous system dysfunction, is caused by a woman's use of alcohol during . Caffeine, found in tea, coffee, soft drinks and chocolate, should also be limited. Be sure to read labels when trying to cut down on caffeine during . More than 200 foods, beverages, and aisu-yib-fvrcrjr medications contain caffeine and have ahigh salt content! There are coffees and teas that do not contain caffeine. M Medical conditions such as diabetes, epilepsy, and high blood pressure should be treated and kept under control before when possible, but especially during . Ask your caregiver about any medications that may need to be changed or adjusted during . If you are currently taking any medications, ask your caregiver if it is safe to take them while you are or beforegetting when possible. Also, be sure to discuss any herbs or vitamins you are taking. Theyare medicines, too! Discuss with your doctor all medications, prescribed and gqfv-ohv-vuebtxz, thatyou are taking. During your visit, discuss the medications your doctor may give you duringlabor and delivery. N Never be afraid to ask your doctor or caregiver questions about your health, the progress of the , family problems, stressful situations, and recommendation for a computer programming supervisor, if you do nothave one. It is better to take all precautions and discuss any questions or concerns you may have during your office visits. It is a good idea to write down your questions before you visit the doctor. O Rwaq-rar-qaudapl cough and cold remedies may contain alcohol or other ingredients that should be avoided during . Ask your caregiver about prescription, herbs or chwd-mqg-aiykjhn medicationsthat you are taking or may consider taking while . P Physical activity during can benefit both you and your baby by lessening discomfort and fatigue, providing a sense of well-being, and increasing the likelihood of early recovery after delivery. Light to moderate exercise during strengthens the belly (abdominal) and back muscles. This helps improve posture. Practicing yoga, walking, swimming, and cycling on a stationary bicycleare usually safe exercises for women. Avoid scuba diving, exercise at high altitudes ([id number] feet), skiing, horseback riding, contact sports, etc. Always check with your doctor before beginning any kind of exercise, especially during and especially if you did not exercise before getting . Q Queasiness, stomach upset and morning sickness are common during . Eating a couple of crackers or dry toast before getting out of bed. Foods that you normally love may make you feel sick to your stomach. You may need to substitute other nutritious foods. Eating 5 or 6 small meals a day instead of 3 large ones may make you feel better. Do not drink with your meals, drink between meals. Questions that you have should be written down and asked during your visits. R Read about and make plans to baby-proof your home. There are important tips for making your home a safer environment for your baby. Review the tips and make your home safer for you and your baby. Read food labels regarding calories, salt and fat content in the food. S Saunas, hot tubs, and steam rooms should be avoided while you are . Excessive high heat maybe harmful during your . Your caregiver will screen and examine you for sexually transmitted diseases and genetic disorders during your visits. Learn the signs of labor. Sexual relations while is safe unless there is a medical or problem and your caregiver advises against it. T Traveling long distances should be avoided especially in the third trimester of your . If you do have to travel out of state, be sure to take a copy of your medical records and medical insurance plan with you. You should not travel long distances without seeing your doctor first. Most airlines will not allow you to travel after 36 weeks of . Toxoplasmosis is an infection caused by a parasite that can seriously harm an unborn baby. Avoid eating undercooked meat and handling catlitter. Be sure to wear gloves when gardening. Tingling of the hands and fingers is not unusual andis due to fluid retention. This will go away after the baby is born. U Womb (uterus) size increases during the first trimester. Your kidneys will begin to function more efficiently. This may cause you to feel the need to urinate more often. You may also leak urine when sneezing, coughing or laughing. This is due to the growing uterus pressing against your bladder, which lies directly in front of and slightly under the uterus during the first few months of . If you experience burning along with frequency of urination or bloody urine, be sure to tell your doctor. The size of your uterus in the third trimester may cause a problem with your balance. It is advisable to maintain good posture and avoid wearing high heels during this time. An ultrasound of your baby may be necessary during your and is safe for you and your baby. V Vaccinations are an important concern for women. Get needed vaccines before . Center for Disease Control (www.cdc.gov) has clear guidelines for the use of vaccines during .Review the list, be sure to discuss it with your doctor. vitamins are helpful and healthy for you and the baby. Do not take extra vitamins except what is recommended. Taking too much of certain vitamins can cause overdose problems. Continuous vomiting should be reported to your caregiver. Varicose veins may appear especially if there is a family history of varicose veins. They should subside after the delivery of the baby. Support hose helps if there is leg discomfort. W Being overweight or underweight during may cause problems. Try to get within 15 pounds ofyour ideal weight before . Remember, is not a time to be dieting! Do not stop eating or start skipping meals as your weight increases. Both you and your baby need the calories and nutrition you receive from a healthy diet. Be sure to consult with your doctor about your diet. There is a formula and diet plan available depending on whether you are overweight or underweight. Your caregiver or botany teacher can help and advise you if necessary. X Avoid X-rays. If you must have dental work or diagnostic tests, tell your dentist or physician thatyou are so that extra care can be taken. X- rays should only be taken when the risks of nottaking them outweigh the risk of taking them. If needed, only the minimum amount of radiation should be used. When X-rays are necessary, protective lead kwong should be used to cover areas of the body that are not being X-rayed. Y Your baby loves you. your baby creates a loving and very close rodriguez between the two of you. Give your baby a healthy environment to live in while you are . Infants and children require constant care and guidance. Their health and safety should be carefully watched at all times. After the baby is born, rest or take a nap when the baby is sleeping. Z Get your ZZZs. Be sure to get plenty of rest. Resting on your side as often as possible, especiallyon your left side is advised. It provides the best circulation to your baby and helps reduce swelling. Try taking a nap for 30 to 45 minutes in the afternoon when possible. After the baby is born rest or take a nap when the baby is sleeping. Try elevating your feet for that amount of time when possible. It helps the circulation in your legs and helps reduce swelling. Most information courtesy of the CDC. Document Released: 03/28/2006 Document Revised: 06/19/2012 Document Reviewed: 12/10/2009 ExitCare?? Patient Information ??2013 [employer]. documented in this encounter Plan of Treatment Not on file documented as of this encounter Procedures Procedure Name Priority Date/Time Associated Diagnosis Comments POCT URINALYSIS DIPSTICK Routine 06/03/2015 10:52 AM EST Supervision of normal , third trimester documented in this encounter Results * POCT URINALYSIS DIPSTICK (06/03/2015 10:52 AM EST) Color, UA yellow Clear, Yellow, [place], [place] SEP OFFICE Clarity, UA clear Clear, Cloudy SEP OFFICE Glucose, UA neg g/dl% SEP OFFICE Bilirubin, UA neg Pos/Neg SEP OFFICE Ketones, UA neg Pos/Neg SEP adding machine servicer Grav, UA 1.020 1.001 - 1.035 g/dl SEP OFFICE Blood, UA neg Pos/Neg SEP OFFICE pH, UA 7.0 5.0 - 8 SEP OFFICE Protein, UA neg Pos/Neg SEP OFFICE Urobilinogen, UA 0.2 0.2 - 1.0 mg/dL SEP OFFICE Leukocytes, UA neg Pos/Neg SEP OFFICE Nitrite, UA neg Pos/Neg SEP OFFICE UA Appear POC na SEP OFFICE Lot Number [id number] SEP OFFICE Expiration Date SEP OFFICE SeriAl # na SEP OFFICE Urine specimen (specimen) 06/03/2015 10:52 AM EST us Kash Tabares MD POINT OF CARE TEST ORDERABLES F inal Result SEP OFFICE documented in this encounter Visit Diagnoses Diagnosis Supervision of normal , third trimester- Primary contractions, third trimester documented in this encounter Care Teams Office Analyst Relationship Specialty Start Date End Date Nehemias Barron MD [address] [place] [address] PCP - General 12/01/10 Easton Thompson MD [address] [place] [address] [address] [place] [address] Physician Obstetrics & Gynecology 01/29/14 documented as of this encounter
--- OUTSIDE RECORDS SUMMARY | 2024-03-07 05:07 | XMS_ITS | Encounter Summary ---
Author Organization [place] [address] Care Team Providers Care Pediatric Clinical Nurse Specialist Name Role Phone Nehemias Barron MD Primary Care Provider [phone] Easton Thompson MD Unavailable [phone] Reason for Visit * Reason Comments Contractions * Auth/Cert/Inpt Specialty Diagnoses / Procedures Referred By Contac t Referred To Contact Referral ID Status Reason Start Date Expiration Date Visits Re quested Visits Authorized [id number] 1 1 Encounter Details Date Type Department Care Team (Latest Contact Info) Description 06/02/2015 5:28 PM EST - 06/02/2015 7:01 PM EST Hospital [facility] [place] [address] Kash Tabares MD [address] [facility] [address] [place] [address] Discharge Disposition: Home or Self [...] Sign Reading Time Taken Comments Blood Pressure 92/51 06/02/2015 5:40 PM EST Pulse 103 06/02/2015 5:40 PM EST Temperature 36.9 ??C (98.4 ??F) 06/02/2015 5:40 PM ES T Respiratory Rate 18 06/02/2015 5:40 PM EST Oxygen Saturation - - Inhaled [...] Tata Sosa RN documented in this encounter Discharge Instructions * Discharge Instructions* Melinda Blanco RN - 06/02/2015 6:59 PM EST [facility] Discharge Instructions Bonny Olivares [id number] [facility] [id number] Activity Restrictions: No Restrictions Diet: regular Call MD for any of the following [...] burning or difficulty urinating Constant abdominal pain Comments/Instructions: MEDICATIONS: None Drug Dose Times to Take Reason for Taking *Contact your doctor before resuming any medications from home not listed above, questions about food/drug interactions, and diet or activity instructions. PAIN ASSESSMENT Location: Back pain Type of Pain: Acute Please continue your current pain management regimen. IF PAIN INTENSIFIES OR PAIN IS UNRELIEVED WITH MEDICATIONS ORDERED, CALL YOUR PHYSICIAN. Remember to contact your physician for a follow-up appointment as instructed. Discharge instructions were given to patient with patient's/family full understanding. Patient Signature Date: Nurse Signature Date: 06/02/15 documented in this encounter Medications at Time of Discharge acetaminophen Oral TabIndications:Ab dominal pain in , antepartum Take 325 mg by mouth every 4 hours as needed for Pain. 6 Blood-Glucose Meter [facility] MiscIndications:G estational diabetes mellitus in second trimester, unspecified diabetic control 1 Kit by [facility].(Non-Drug; Combo Route) route 4 times daily. 1 Each 0 05/16/2015 6 doxylamine-pyrido xine (DICLEGIS) 10-10 mg Oral Tablet, Delayed Release (E.C.) Take by mouth daily. 6 Lancets [facility] MiscIndications:G estational diabetes mellitus in second trimester, unspecified diabetic control 1 box by [facility].(Non-Drug; Combo Route) route 4 times daily. 1 [...] Code Departure Means Destination Home or Self Mcfp documented in this encounter Progress Notes * Melinda Blanco RN - 06/02/2015 7:01 PM EST Reviewed discharge instructions and follow up with patient and family. Verbalizes understanding of all information provided. . Pt discharged ambulatory. * Radha Knight RN - 06/02/2015 6:46 PM EST 06/02/15 1846 Heart Rate Mode External US Baseline Rate 140 bpm Baseline Classification Normal Variability 6-25 BPM Movement Present Uterine Activity Mode Palpation;[place] Contraction Frequency none Cosigned by Shannan De Leon MD at 07/13/2015 4:19 PM EDT * Melinda Blanco RN - 06/02/2015 5:41 PM EST Pt presents to triage with complaints of contractions. EFM on and on central bank. Hx reviewed. documented in this encounter Plan of Treatment Not on file documented as of this encounter Procedures Procedure Name Priority Date/Time Associated Diagnosis Comments VAGINAL PANEL STAT 06/02/2015 6:45 PM EST URINALYSIS POC Routine 06/02/2015 6:14 PM EST documented in this encounter Results * VAGINAL PANEL (06/02/2015 6:45 PM EST) Final Ynes species DNA Probe: Negative Gardnerella vaginalis DNA Probe: Negative Trichomonas vaginalis DNA Probe: Negative Interpretive Data: ??Vaginal Pathogens DNA Direct Probes All test results should be correlated with clinical history. [facility] Genital 06/02/2015 6:45 PM EST 06/03/2015 6:19 AM EST us Ora Soler CNM MICROBIOLOGY - GENERAL ORDERABLES Final Result Performing Organization Address City/[facility] Co de Phone Number [address] [address] * URINALYSIS POC (06/02/2015 6:14 PM EST) UA Color POC Yellow [facility] POI NT [facility] UA Appear POC Clear Clear [facility] PO INT [facility] UA Gluc POC Negative Negative [facility] POIN T [facility] UA Ketones POC Negative Negative SE P OINT [facility] UA Blood POC Negative Negative SE POI NT OF [facility]ARE [facility] UA pH POC 6.5 5.0 - 8.0 [facility] POINT [facility]ARE LAB[facility] UA Protein POC Negative Negative [facility] P OINT [facility]ARE [facility] UA Urobilinogen POC 0.2 mg/dl <=1 mg/dl [facility] POINT [facility] UA Nitrite POC Negative Negative [facility] P OINT [facility]ARE [facility] UA Leuk Est POC Negative Negative [facility] UA SG POC 1.025 1.001 - 1.035 [facility] Urine specimen (specimen) 06/02/2015 6:14 PM EST 06/02/2015 6:14 PM EST us Kash Tabares MD POINT OF CARE TEST ORDERABLES F inal Result Performing Organization Address City/[facility] Co de Phone Number [facility] POINT [facility] [address] [place], [place] [address] [address] documented in this encounter Visit Diagnoses Not on filedocumented in this encounter Orders Nursing Count Last Ordered Date First Orde red Date PERFORM DIPSTICK URINALYSIS 1 06/02/2015 documented in this encounter Care Teams Pediatric Clinical Nurse Specialist Relationship Specialty Start Date End Date Nehemias Barron MD [address] [place] [address] PCP - General 12/01/10 Easton Thompson MD [facility] [address] [place] [address] Physician Obstetrics & Gynecology 01/29/14 documented as of this encounter
--- OUTSIDE RECORDS SUMMARY | 2024-03-07 05:07 | XMS_ITS | Encounter Summary ---
Author Organization [place] [address] Care Team Providers Care Utilization Reviewer Name Role Phone Nehemias Barron MD Primary Care Provider [phone] Easton Thompson MD Unavailable [phone] Encounter Details Date Type Department Care Team (Latest Contact Info) Description 07/15/2015 7:36 PM EDT - 07/15/2015 11:59 PM EDT Hospital Encounter EDG LAB IVORY PROCESSING [facility] [place] [address] Diet controlled gestational diabetes mellitus in third trimester; Supervision of normal , third trimester Discharge Disposition: Home or Self Care [...] Tata Sosa RN documented in this encounter Medications at Time of Discharge acetaminophen Oral TabIndications:Ab dominal pain in , antepartum Take 325 mg by mouth every 4 hours as needed for Pain. 6 Blood-Glucose Meter [facility] MiscIndications:G estational diabetes mellitus in second trimester, unspecified diabetic control 1 Kit by [facility].(Non-Drug; Combo Route) route 4 times daily. 1 Each 0 05/16/2015 6 doxylamine-pyrido xine (DICLEGIS) 10-10 mg Oral Tablet, Delayed Release (E.C.) Take by mouth daily. 6 Lancets [facility] MiscIndications:G estational diabetes mellitus in second trimester, unspecified diabetic control 1 box by [facility].(Non-Drug; Combo Route) route 4 times daily. 1 [...] Name Priority Date/Time Associated Diagnosis Comments STREP B DNA Routine 07/15/2015 12:20 PM EDT Diet controlled gestational diabetes mellitus in third trimester Supervision of normal , third trimester documented in this encounter Results * STREP B DNA (07/15/2015 12:20 PM EDT) Strep B DNA Negative [facility] Strep B Interp TEST INFORMATION: This qualitative assay utilizes molecular amplification to detect a portion of the Streptococcus agalactiae genome and is intended for a screen of antepartum women in 35-37 weeks gestation. ??This assay utilizes the [employer] by [employer] and its performance has been verified by [facility]. ??A negative result does not rule out the presence the Group B Strep in concentrations below the limit of detection for the assay. [facility] Genital 07/15/2015 12:2 0 PM EDT 07/15/2015 8:30 PM EDT Narrative [facility] - 07/17/2015 4:38 PM EDT Does pt have a severe PCN allergy?->No us Easton Thompson MD MICROBIOLOGY - GENERAL ORDER MAURICE Final Result [facility] [address] [place] [address] documented in this encounter Visit Diagnoses Diagnosis Diet controlled gestational diabetes mellitus in third trimester Supervision of normal , third trimester documented in this encounter Care Teams Utilization Reviewer Relationship Specialty Start Date End Date Nehemais Barron MD [address] [place] [address] PCP - General 12/01/10 Easton Thompson MD [address] [place] [address] [address] [place] [address] Physician Obstetrics & Gynecology 01/29/14 documented as of this encounter
--- OUTSIDE RECORDS SUMMARY | 2024-03-07 05:07 | XMS_ITS | Encounter Summary ---
Author Organization [place] [address] Care Team Providers Care Resin Shaver Name Role Phone Nehemias Barron MD Primary Care Provider [phone] Easton Thompson MD Unavailable [phone] Reason for Visit * Reason Onset Date Comments Other 05/23/2015 Encounter Details Date Type Department Care Team (Late Contact Info) Description 05/23/2015 Telephone [facility] [address] [place] [address] Easton Thompson MD [address] [place] [address] Other Social History Tobacco Use Types Packs/Day [...] Tata Sosa RN documented in this encounter Miscellaneous Notes * Telephone Encounter - Prabha Sheikh MA - 05/23/2015 3:[address] Thompson on this one and she advised me to get what pt had to eat and drink, to advise pt to watch the sugar intake, carbs and for pt to call back Tuesday. Pt aware * Telephone Encounter - Prabha Sheikh MA - 05/23/2015 3:35 PM EST Est. Ob pt 29w0d, called stating that she was told if her glucose was over 150 to call right away. Pt stated she took her glucose and its 181 documented in this encounter Plan of Treatment Not on file documented as of this encounter Visit Diagnoses Not on filedocumented in this encounter Care Teams Resin Shaver Relationship Specialty Start Date End Date Nehemias Barron MD [address] [place] [address] PCP - General 12/01/10 Easton Thompson MD [address] [place] [address] [address] [place] [address] Physician Obstetrics & Gynecology 01/29/14 documented as of this encounter
--- OUTSIDE RECORDS SUMMARY | 2024-03-07 05:07 | XMS_ITS | Encounter Summary ---
Author [place] [address] Care Team Providers Care Demand Inspector Name Role Phone Nehemias Barron MD Primary Care Provider [phone] Easton Thompson MD Unavailable [phone] Reason for Visit * Reason Comments Contractions * Auth/Cert/Inpt Specialty Diagnoses / Procedures Referred By Contac t Referred To Contact Diagnoses Normal labor Referral ID Status Reason Start Date Expiration Date Visits Re quested Visits Authorized [id number] 1 1 Encounter Details Date Type Department Care Team (Latest Contact Info) Description 07/20/2015 12:55 AM EDT - 07/21/2015 10:10 PM EDT [facility] [place] [address] Kash Tabares MD [address] [facility] [address] [place] [id number] Discharge Disposition: Home or Self Care [...] Sign Reading Time Taken Comments Blood Pressure 111/59 07/21/2015 3:09 PM EDT Pulse 78 07/21/2015 3:09 PM EDT Temperature 36.8 ??C (98.3 ??F) 07/21/2015 3:09 PM ED T Respiratory Rate 18 07/21/2015 3:09 PM EDT Oxygen Saturation - - Inhaled Oxygen Concentration - - Weight 64.9 kg (143 lb) 07/20/2015 2:48 AM EDT Height 165.1 cm (5' 5 ) 07/20/2015 2:48 AM EDT Body Mass Index 23.8 07/20/2015 2:48 AM EDT documented in this encounter Functional [...] Brand RN documented in this encounter Discharge Summaries * Cathie Pena, - 07/21/2015 1:28 PM EDT [facility] Discharge Summary Patient Name: Naeem Newberry : 1990 Admit Date: 07/20/2015 Discharge Date: Admitting Physician: Kash Tabares MD Discharge Physician: Cathie Pena DO Reason for Hospitalization: Active Hospital Problems (normal spontaneous vaginal delivery) Hospital Course/Significant Findings: See progress notes Procedures Performed: None Consults: Discharge Exam: See Progress Note Discharge Diagnoses: Active Problems: (normal spontaneous vaginal delivery) Condition at Discharge: good Disposition: Home Discharge Medications:: Medication List START taking these medications ibuprofen 600 mg Tab Dose: 600 mg Qty: 60 Tab Refills: 1 Commonly known as: ADVIL;MOTRIN 600 mg, Oral, EVERY 6 HOURS PRN oxyCODONE-acetaminophen 5-325 mg Tab Dose: 1-2 Tab Qty: 30 Tab Refills: 0 Commonly known as: PERCOCET 1-2 Tabs, Oral, EVERY 4 HOURS PRN CONTINUE taking these medications vit-iron fumarate-FA 27-0.8 mg Tab Dose: 1 Tab Refills: 0 STOP taking these medications acetaminophen 325 mg Tab Commonly known as: TYLENOL Blood-Glucose Meter Misc DICLEGIS 10-10 mg Tbec Generic drug: doxylamine-pyridoxine Lancets Misc malathion 0.5 % Lotn Commonly known as: OVIDE ondansetron 4 mg Tbdl Commonly known as: ZOFRAN-ODT Where to Get Your Medications These are the prescriptions that you need to sampler pickup. You may get the following medications from any pharmacy - ibuprofen 600 mg Tab - oxyCODONE-acetaminophen 5-325 mg Tab Follow Up: Cathie Pena DO [address] [id number] Schedule an appointment as soon as possible for a visit in 6 weeks For exam Signed: Cathie Pena DO 07/21/2015 1:28 PM documented in this encounter Discharge Instructions * Discharge Instructions* Rosalee Brand RN - 07/21/2015 5:44 PM EDT Follow-up in office in 6 weeks for your visit. If, before then, you experience any of the following please call the office or the doctor material control supervisor: 1) Fever >100.4 2) Bleeding >1pad/hour 3) Pain not controlled with your medication 4) Redness/swelling in one leg more than the other You will need to remain on pelvic rest (no sex, no douching, no tampons - nothing in the vagina) until after your visit. [facility] Maternal Discharge Summary You have been discharged by your doctor. If you have questions or concerns about yourself, call your doctor. Feel free to call us at [place] if we can help you. Naeem Newberry [id number] 07/21/2015 [address] [facility] [place] [address] FOLLOW UP APPOINTMENTS Call the office of Dr. Soler to schedule your 6 week check-up. Care Center appt 07/23/15 PAIN ASSESSMENT Location: abd Current Pain Intensity: 0 If your pain intensifies or is unrelieved by the pain medications as ordered, call your doctor. Follow your Maternal Care and Discharge Instructions. I verify that I have received and understand my discharge instructions. I feel competent to care for myself. My questions have been answered to my satisfaction. X 07/21/15 _Garret Brand Rn Patient Date R.N. [facility] Maternal Care and Discharge Instructions ACTIVITY - Gradually increase your activity as tolerated. If it makes you tired, sore, or bleed more, you are doing too much too soon. Rest as much as you can. You may climb steps, but do so slowly and limit the number of trips up and down in a day. For 2 weeks don't lift anything heavier than 10 pounds. If you had a Section, avoid lifting for 6 weeks. BABY BLUES - Withdrawal of the hormones, as well as fatigue from lack of sleep, can affect the way you feel. Beginning within the first few days after delivery, you may experience irritability, impatience and crying. This is normal. Call your doctor if these feelings worsen or last longerthan 2-3 weeks as it could indicate depression. BLEEDING - During the first few days after delivery your vaginal discharge will be dark red and similar to your menstrual flow. After that, the discharge will continue to decrease in amount and change to a pale pink or brownish color. By the end of there second week most women will have little morethan a clear discharge, which may continue for several weeks. A heavier flow during or when you first get out of bed is normal. Call your doctor if you experience heavy, bright red bleeding (enough to saturate on maxi pad in less than an hour) or if you are passing clots that are increasing in size and frequency. BREAST PAIN - Call your doctor if either breast develops a hard area that becomes red, hot, or tender and is accompanied by flu-like symptoms and fever. CONSTIPATION - Your first bowel movement usually occurs within 2-3 days after delivery. Progressiveexercise, a high fiber diet (fruits, vegetables and whole grains) and plenty of fluids (especially water) will help prevent constipation. [id number] stool softeners may be used, if needed. CRAMPING - Afterpains result from the uterus damien after delivery, which helps reduce blood loss and returns the uterus to its pre- size. They are most noticeable in the first 3-4 daysfollowing delivery, particularly for women who have had previous deliveries. These contractions arealso more pronounced during . Anti-inflammatory medications (such as Advil, Ibuprofen or Motrin) usually provide effective relief from afterpains. DIET - Unless instructed otherwise, eat a regular, well-balanced diet and include foods high in protein and iron. Drink plenty of fluids. DRIVING - Avoid driving for 1-2 weeks after delivery. If you are still having pain that would prevent you from reacting quickly in case of an emergency, you should not be driving. Do not drive if youare taking narcotic pain medication (such as Percocet). ENGORGEMENT - Swelling of the breasts may occur 2-4 days after delivery and usually lasts 24-48 hours. If you are bottlefeeding: Wear a tight bra 24 hours a day until the engorgement has passed. Avoid any nipple stimulation during this time. Apply ice packs to each breast for 10-15 minutes, 3-4 times a day as needed. You may also take Tylenol as directed for discomfort. If you are : Massage the breast through a cold, wet cloth until the breast softens. You may need to pump or manually express some milk before each feeding if the nipple is too tight to allow the baby to latch on. Massaging breasts in a warm shower may also help to express milk. Continue to nurse frequently. Apply ice packs after for 10-15 minutes to decrease swelling and relive discomfort. FEVER - Call your doctor if you have a temperature above 100.4 degrees. It could be a sign of infection in your urinary tract, breast, uterus, or abdominal incision. HEMORRHOIDS - Hemorrhoids are best treated with sitz baths, cold compresses, topical anti-inflammatory (Hydrocortisone cream, and Witch Shiva (Tucks) pads). Avoid constipation to prevent straining against them. INCISIONAL CARE - If you had a Section, clean your incision daily using soap and water. Pat dry, don't rub. Look at your incision every day. Call your doctor if there is any redness in the skin around the incision, pus-filled drainage, or separation of the wound edges. Any stitches you have will dissolve on their own. You can remove steri strips 7 days after they were placed. NIPPLES - Sore nipples are generally due to poor latch-on and improper positioning during . Dab either expressed colostrum or breast milk to your nipple and allow to air dry, or apply a small amount of Lanolin or Lansinoh to your nipple after . Remember to break the suction between your baby's mouth and your breast by sliding your finger into the corner of his/her mouth. PERINEUM - To keep your bottom clean continue to use your squirt bottle to rinse the area with lukewarm water after urination and bowel movements. Dry the area using a front to back patting motion. Use your anesthetic (Dermoplast) spray for pain relief and the topical anti-inflammatory (Hydrocortisone) cream 3-4 times a day as needed. Witch Shiva (Tucks) pads are cooling and soothing and can be ap plied to the area as often as desired. Change your pads frequently to avoid infection. Any stitchesyou may have will dissolve on their own. PREECLAMPSIA - High blood pressure brought on by can continue into the period.Call your doctor if you experience headaches, dizziness or visual changes (such as blurred vision, spots, or flashing lights). SITZ BATHS - Sitz baths promote healing and provide relief from the pain and swelling associated with episiotomies, tears or hemorrhoids. This can be done 2- 3 times a day for 15-20 minutes at a time using plain, comfortable hot water. SMOKING - Smoking is hazardous to your health. Second had smoke is harmful to those around you. Contact your doctor for smoking cessation information and classes that can help you quit. URINATION - Call your doctor if you experience difficulty urinating (such as burning, frequency with small amounts, or feeling like you are not emptying your bladder) with or without fever. UTERINE INFECTION - The site where the placenta was attached is a healing wound. To prevent infection, avoid introducing bacteria into the vagina - no tub baths, sex, tampons or douching until after your visit. Call your doctor if you experience increased abdominal tenderness, fever or afoul smelling vaginal discharge. WORKING - If you work outside the home, return to work as instructed by your doctor, usually after your 6 week check-up. CALL YOUR DOCTOR if you have a fever, excessive bleeding, breast pain with flu- like symptoms, pain with urination, foul-smelling discharge, leg pain, shortness of breath or persistent depression. documented in this encounter Medications at Time [...] 07/21/2015 6 documented as of this encounter Ordered Prescriptions Prescription Sig Dispense Quantity Refills Last Filled Start Date End Date ibuprofen (ADVIL;MOTRIN) 600 mg Oral Tablet Take 1 Tab by mouth every 6 hours as needed for Pain. 60 Tab 1 07/21/2015 6 oxyCODONE-acetamin ophen (PERCOCET) 5-325 mg Oral Tablet Take 1-2 Tabs by mouth every 4 hours as needed for Pain (For moderate to severe pain unrelieved by oral non-opioid). 30 Tab 0 07/21/2015 6 documented in this encounter Discharge Disposition Disposition Code Departure Means Destination Home or Self Fdc documented in this encounter Progress Notes * Shannan Strauss RN - 07/21/2015 10:07 PM EDT Orders to discharge the patient home noted. Discharge instructions prepared and printed per RN. Instructions verbally reviewed with patient. Written copy given. Prescriptions given. Opportunity to ask questions regarding self/infant care provided. Patient verbalized understanding of discharge instructions. Taken per wheelchair by transport staff member to the exit, accompanied by significant other. * Cathie Pena DO - 07/21/2015 1:26 PM EDT Doing well. Pain controlled. Reyna PO. Ambulatory. +void/flatus. Lochia wnl Filed Vitals: 07/21/15 0438 07/21/15 0739 07/21/15 1150 07/21/15 1151 BP: 92/52 125/54 99/56 Pulse: 77 77 71 Temp: 97.6 ??F (36.4 ??C) 97.6 ??F (36.4 ??C) 98.3 ??F (36.8 ??C) TempSrc: Oral Oral Oral Resp: 18 16 18 Height: Weight: Abd soft, marley tender, FFBU LE no e/e,nontender A/P 24 y.o. PPD 1 1) Doing well, desires d/c home. Precautions reviewed * Angeles Altamirano RN - 07/21/2015 11:30 AM EDT This note was copied from the chart of Naeem Newberry. Note: Mother has been counseled regarding the benefits of and the risks of formula feeding, written information given with contact info for LCs, and various options regarding feeding. Mother's choice is not to give breast milk and to give formula exclusively. Enc KINGA, reviewed benefits and recommendations, mom verbalizes understanding. * Dieter Soler MD - 07/20/2015 6:13 PM EDT Delivery note dictated * Dieter Soler MD - 07/20/2015 12:43 PM EDT Neaem was brought in for obs last pm as she was complaining of worsening ctx, She was 4 last pm This am she changed to 5cm/80/0 fhr reactive cat 1, Ctx 4-6 min A: iup 37 plus weeks Early active labor, Dysfunctional labor pattern P: arom performed clear, Continue efm Anticipate vaginal delivery. * Pau Wagoner RN - 07/20/2015 2:00 AM EDT Pt moved from triage to room 1334, orientation to room completed, pt up to bathroom 0202 EFM and TOCO applied to abdomen to central bank documented in this encounter Procedure Notes * Dieter Soler MD - 07/20/2015 6:23 PM EDT [facility], [place] NAME: NAEEM NEWBERRY [facility]#: [id number] LOCATION/ROOM: [facility] 1334 FACILITY: ED DICTATOR: Dieter Soler OPERATIVE REPORT Page 1 OPERATIVE REPORT DELIVERY NOTE DATE OF DELIVERY: 07/20/2015 PREOPERATIVE DIAGNOSIS: POSTOPERATIVE DIAGNOSIS: PHYSICIAN AT DELIVERY: Dieter Soler M.D. DESCRIPTION: Naeem came to the delivery room last night complaining of contractions. She was in early labor. She underwent artificial rupture of membranes this morning and Pitocin augmentation. She proceeded nicely to full dilatation, began to push, and after approximately 15 minutes of second stage of labor, she delivered the head from OA position over the intact perineum. The placenta delivered via continuous cord traction and appeared intact. EBL was approximately 400 mL. The uterus was massaged, became firm. No lacerations were noted. ANESTHESIA: Epidural. CONDITION: Currently, both mom and baby doing well. Dieter Soler M.D. By: lilliam Job ID: [id number] Doc ID: [id number] CC: documented in this encounter Miscellaneous Notes * Plan of Care - Rosalee Brand RN - 07/21/2015 7:33 AM EDT Problem: Pain Management Goal: The patient???s stated pain goal will be reached and maintained. Outcome: Progressing No c/o pain or nausea Problem: Safety: Fall Risk Goal: Patient will be free from falls. Outcome: Progressing Gait steady when up Problem: OB Skin Integrity Goal: Skin remain intact During the phase Outcome: Progressing Skin intact Problem: Fluid balance R/T dehydration, blood loss/vessel injury and/or trauma. Goal: Patient will be adequately hydrated Patient will be adequately hydrated, without s/s of uterine atony/hemorrhage and/or hematoma formation. Outcome: Progressing Pt taking reg diet and fluids well Problem: Knowledge Deficit related to maternal and infant care Goal: PATIENT/FAMILY DEMONSTRATE KNOWLEDGE OF DISEASE PROCESS/MEDS Outcome: Progressing Pt knowledgeable in self and infant care. Problem: Knowledge deficit related to Goal: Patient will verbalize/demonstrate appropriate strategies/techniques Outcome: Progressing Pt bottle feeding her baby * Plan of Care - Skylar Juan RN - 07/20/2015 4:25 PM EDT Problem: Infection - 8 Goal: Patient will be free from infection Outcome: Progressing Temp and labs wnl Problem: Pain Management Goal: The patient???s stated pain goal will be reached and maintained. Outcome: Progressing Epidural in place, no pain at this time Problem: status Goal: status monitored and maintained as optimally as possible Outcome: Progressing FHR reactive and reassuring Problem: Safety: Fall Risk Goal: Patient will be free from falls. Outcome: Progressing Safety information explained to pt, room free of clutter Problem: Knowledge deficit R/T labor and treatment plan Goal: Patient/family will be knowledgeable about labor and treatment Outcome: Progressing No concerns at this time Problem: OB Skin Integrity Goal: Skin remain intact Outcome: Progressing Skin intact, pt independent * Plan of Care - Radha Onofre RN - 07/20/2015 4:20 AM EDT Problem: Infection - 8 Goal: Patient will be free from infection Outcome: Progressing Patient afebrile Problem: Pain Management Goal: The patient???s stated pain goal will be reached and maintained. Outcome: Progressing Pain controlled at this time Problem: status Goal: status monitored and maintained as optimally as possible Outcome: Progressing FHR & contractions being monitored and maintained as appropriate Problem: Safety: Fall Risk Goal: Patient will be free from falls. Outcome: Progressing Patient is free from falls at this time, will continue to monitor Problem: Knowledge deficit R/T labor and treatment plan Goal: Patient/family will be knowledgeable about labor and treatment Outcome: Progressing Patient continuously educated on plan of care and treatment plan Problem: OB Skin Integrity Goal: Skin remain intact Outcome: Progressing Skin integrity WNL Problem: Assess for New Problems - (ALWAYS ADD TO CARE PLAN) Goal: Patient???s care plan will be individualized with added problems when problem is identified Below is a list of the more common patient problems. The list is not all inclusive. When an additional problem is identified add to the Care Plan. To see entire list of additional problem options, search ADDITIONAL PROBLEMS [51] or search for individual problems such as RESTRAINTS [62]. To add an additional problem, go to APPLY TEMPLATE. Infection [93] Altered bowel elimination [78] Altered bladder elimination [77] Volume excess [72] Volume deficit [71] OB Hypertensive disorders [92] OB Diabetes [32] OB Altered parenting [95] OB Hemorrhage [35] OB loss [48] Outcome: No New Problem(s) Identified No new problems at this time documented in this encounter Plan of Treatment Not on file documented as of this encounter Procedures Procedure Name Priority Date/Time Associated Diagnosis Comments DIFFERENTIAL Routine 07/21/2015 5:02 AM EDT CBC WITH DIFF Routine 07/21/2015 5:02 AM EDT GLUCOSE METER POC Routine 07/20/2015 12: 19 PM EDT GLUCOSE METER POC Routine 07/20/2015 8:1 4 AM EDT DRUGS OF ABUSE, SCREEN ONLY, URINE STAT 07/20/2015 3:17 AM EDT SYPHILIS SCREEN WITH REFLEX RPR QUANT STAT 07/20/2015 2:31 AM EDT CBC STAT 07/20/2015 2:31 AM EDT ABORH STAT 07/20/2015 2:31 AM EDT ANTIBODY SCREEN IGG STAT 07/20/2015 2 :31 AM EDT documented in this encounter Results * DIFFERENTIAL (07/21/2015 5:02 AM EDT) Neut Percent 67.0 % [facility] Lymph Percent 23.5 % [facility] [place] Percent 8.3 % [facility] Eos Percent 0.9 % [facility] Baso Percent 0.3 % [facility] Neut# 4.0 1.8 - 7.7 x10(3)/[facility] Lymph# 1.4 0.6 - 4.8 x10(3)/[facility] [place]# 0.5 0.0 - 1.3 x10(3)/[facility] Eos# 0.1 0.0 - 0.5 x10(3)/[facility] Baso# 0.0 0.0 - 0.2 x10(3)/[facility] Blood specimen (specimen) 07/21/2015 5:02 AM EDT 07/21/2015 5:22 AM EDT us Dieter Soler MD HEMATOLOGY [place] [address] * (ABNORMAL) CBC WITH AUTO DIFF (07/21/2015 5:02 AM EDT) WBC 6.0 4.0 - 11.0 x10(3)/[facility] RBC 3.30(L) 3.80 - 5.10 x10(6)/[facility] Hgb 11.1(L) 12.0 - 15.6 gm/dL [facility] Hct 32.5(L) 35.7 - 45.9 % [facility] MCV 98.3 82.5 - 99.8 fL [facility] MCH 33.4 27.0 - 34.3 pg [facility] MCHC 34.0 32.1 - 35.3 gm/dL [facility] RDW 12.4 11.5 - 15.0 % [facility] Platelet 144 144 - 423 x10(3)/[facility] MPV 9.1 6.8 - 10.8 fL [facility] Blood specimen (specimen) UPPER LIMB STRUCTURE / Unknown 07/21/2015 5:02 AM EDT 07/21/2015 5:22 AM EDT Dieter Soler MD HEMATOLOGY ORDERABLES Fi nal Result Performing Organization Address City/[facility]/ZIP Co de Phone Number [facility] [address] [place] [address] * GLUCOSE METER POC (07/20/2015 12:19 PM EDT) Glucose Meter POC 100 70 - 100 mg/dL [facility] PO[facility] CARE LABORATORY Blood specimen (specimen) 07/20/2015 12:19 PM EDT 07/20/2015 12:19 PM EDT Kash Tabares MD POINT OF CARE TEST ORDERABLES F inal Result Performing Organization Address [facility] Co de Phone Number [facility] POINT [facility] [address] [place] [address] * (ABNORMAL) GLUCOSE METER POC (07/20/2015 8:14 AM EDT) Glucose Meter POC 69(L) 70 - 100 mg/dL [facility] POINT OF [facility] Blood specimen (specimen) 07/20/2015 8:14 AM EDT 07/20/2015 8:14 AM EDT Kash Tabares MD POINT OF CARE TEST ORDERABLES F inal Result Performing Organization Address [facility] Co de Phone Number [facility] POINT [facility] [address] [place] [address] * DRUGS OF ABUSE, SCREEN ONLY, URINE (07/20/2015 3:17 AM EDT) Cannaboinoid Screen, Urine Absent 50 ng/mL [facility] Benzodiazepines Screen Absent 200 ng/mL [facility] Cocaine(Metab.)Scr een, Urine Absent 150 ng/mL [facility] Opiate 300 Screen Absent 300 ng/mL [facility] Barbiturate Screen, Urine Absent 200 ng/mL [facility] Amphetamine Screen, Urine Absent 500 ng/mL [facility] Phencyclidine Screen Absent 25 ng/mL [facility] Methadone Screen, Urine Absent 300 ng/mL [facility] Oxycodone Screen Absent 100 ng/mL [facility] 6 AM (Heroin) Screen Absent 10 ng/mL [facility] Buprenorphine Screen Absent 5 ng/mL [facility] Creatinine Ur >25.0 mg/dL [facility] Comment: Greater than 20: Consistent with [...] business days should additional orders/testing be desired. [facility] Urine specimen (specimen) URINE SPECIMEN COLLECTION, CLEAN CATCH / Unknown 07/20/2015 3:17 AM EDT 07/20/2015 3:17 AM EDT Dieter Soler MD URINE ORDERABLES Final R esult Performing Organization Address City/[facility]/ZIP Co de Phone Number [facility] [address] [place] [address] * ANTIBODY SCREEN IGG (07/20/2015 2:31 AM EDT) ABSC IgG Int Negative [facility] Blood specimen (specimen) 07/20/2015 2:31 AM EDT 07/20/2015 2:38 AM EDT Dieter Soler MD BLOOD BANK ORDERABLES Fi nal Result Performing Organization Address [facility] Co de Phone Number [facility] [address] [place] [address] * ABORH (07/20/2015 2:31 AM EDT) ABORh Int AB POS [facility] Blood specimen (specimen) 07/20/2015 2:31 AM EDT 07/20/2015 2:38 AM EDT Dieter Soler MD BLOOD BANK ORDERABLES Fi nal Result Performing Organization Address [facility] Co de Phone Number [facility] [address] [place] [address] * SYPHILIS SCREEN WITH REFLEX RPR QUANT (07/20/2015 2:31 AM EDT) Pathologist [facility] TREP(SYPHILIS) AB INDEX <0.10 <=1.09 Index Value [facility] Comment: <0.90 - Negative 0.90 to 1.00 - Equivocal ?? Patients with equivocal results should be retested in 7-14 days. >=1.10 - Positive NOTE: ??All equivocal and positive results will be reflexed to Quantitative Non-Treponemal(RPR)test. Blood specimen (specimen) UPPER LIMB STRUCTURE / Unknown 07/20/2015 2:31 AM EDT 07/20/2015 2:38 AM EDT Dieter Soler MD CHEMISTRY ORDERABLES Fin al Result Performing Organization Address [facility] Co de Phone Number [facility] [address] [place] [address] * (ABNORMAL) CBC (07/20/2015 2:31 AM EDT) [facility] WBC 6.6 4.0 - 11.0 x10(3)/mcL [facility] RBC 3.61(L) 3.80 - 5.10 x10(6)/mcL [facility] Hgb 12.0 12.0 - 15.6 gm/dL [facility] Hct 35.3(L) 35.7 - 45.9 % [facility] MCV 97.9 82.5 - 99.8 fL [facility] MCH 33.3 27.0 - 34.3 pg [facility] MCHC 34.0 32.1 - 35.3 gm/dL [facility] RDW 12.3 11.5 - 15.0 % [facility] Platelet 189 144 - 423 x10(3)/mcL [facility] MPV 9.2 6.8 - 10.8 fL [facility] Blood specimen (specimen) UPPER LIMB STRUCTURE / Unknown 07/20/2015 2:31 AM EDT 07/20/2015 2:38 AM EDT us Dieter Soler MD HEMATOLOGY ORDERABLES Fi nal Result [facility] [address] [place] [address] documented in this encounter Visit Diagnoses Diagnosis (normal spontaneous vaginal delivery) Normal delivery documented in this encounter Administered Medications Inactive Administered Medications - up to 1 most recent administrations Medication Order MAR Action Action Date Dose Rate Site butorphanol (STADOL) injection 1 mg 1 mg, Intravenous, ONCE, 1 dose, On 07/20/15 at 0200 Given 07/20/2015 2:06 AM EDT 1 mg butorphanol (STADOL) injection 1 mg 1 mg, Intravenous, ONCE, 1 dose, On 07/20/15 at 0815 Given 07/20/2015 8:21 AM EDT 1 mg ibuprofen (ADVIL;MOTRIN) tablet 600 mg 600 mg, Oral, EVERY 6 HOURS PRN, Starting on Tue07/21/15 at 0000, Until Tue07/22/15 at 0259, Pain Given 07/21/2015 6:17 PM EDT 600 mg lactated ringers infusion Intravenous, at 999 mL/hr, CONTINUOUS, Starting on Tue07/20/15 at 0200, Until Tue07/20/15 at 1837, Then 125ml after first liter. New Bag 07/20/2015 1:45 AM EDT 999 mL/hr lactated ringers infusion Intravenous, at 125 mL/hr, CONTINUOUS, Starting on Tue07/20/15 at 0300, Until Tue07/20/15 at 1837 New Bag 07/20/2015 4:02 PM EDT 125 mL/hr oxytocin (pitOCIN) 20 units in LR 1000 mL 1-20 moira-units/min (3-60 mL/hr), Intravenous, TITRATED, Starting on Tue07/20/15 at 1630, Until Tue07/20/15 at 1837, Start at 2 milliunits/min (6ml/hr), Increase by 2 milliunits/min (6ml/hr) every 30 minutes until active labor (4 cm/regular contractions 2-3 minutes apart and moderate strength). The nurse will contact the physician for further orders when the Oxytocin (Pitocin) has reached 20 milliunits/min (60 ml/hr). Rate/Dose Change 07/20/2015 5:07 PM EDT 4 moira-units/mi n 12 mL/hr witch shiva-glycerin (TUCKS) pad Topical, PRN, Starting on 07/20/15 at 1836, Until 07/22/15 at 0259, Other, perineal discomfort, Application site: Perineum, Post-op Given 07/20/2015 9:36 PM EDT documented in this encounter Discontinued Medications Medication Sig Discontinue Reason Start Date End Da te malathion (OVIDE) 0.5 % Top LotionIndications:Head lice Apply topically See Admin Instructions. See admin instructions. Stop Taking at Discharge 04/29/2014 07/21/2015 acetaminophen Oral TabIndications:Abdomin al pain in , antepartum Take 325 mg by mouth every 4 hours as needed for Pain. Stop Taking at Discharge 07/21/2015 ondansetron (ZOFRAN-ODT) 4 mg Oral Tablet, Rapid Dissolve Take 4 mg by mouth every 6 hours as needed for Nausea. Stop Taking at Discharge 07/21/2015 doxylamine-pyridoxine (DICLEGIS) 10-10 mg Oral Tablet, Delayed Release (E.C.) Take by mouth daily. Stop Taking at Discharge 07/21/2015 Blood-Glucose Meter [facility] MiscIndications:Gestat ional diabetes mellitus in second trimester, unspecified diabetic control 1 Kit by [facility].(Non-Drug; Combo Route) route 4 times daily. Stop Taking at Discharge 05/16/2015 07/21/2015 Lancets [facility] MiscIndications:Gestat ional diabetes mellitus in second trimester, unspecified diabetic control 1 box by [facility].(Non-Drug; Combo Route) route 4 times daily. Stop Taking at Discharge 05/19/2015 07/21/2015 documented as of this encounter Active and Recently Administered Medications Times are shown in EDT. Scheduled Medication Order 07/19/2015 07/20/201507/21/2015 butorphanol (STADOL) injection 1 mg (COMPLETED) 1 mg, Intravenous, ONCE, 1 dose, On 07/20/15 at 0200 0206 (Given - Provider: Pau Wagoner RN) butorphanol (STADOL) injection 1 mg (COMPLETED) 1 mg, Intravenous, ONCE, 1 dose, On 07/20/15 at 0815 0821 (Given - Provider: Skylar Juan RN) Continuous Medication Order 07/19/2015 07/20/2015 07/21/2015 fentaNYL 3 mcg/mL and bupivacaine 0.125 % epidural 200 ml (L/D only) (CANCELED) Epidural, TITRATED, Starting on 07/20/15 at 1445, Until Tu07/22/15 at 0259, Maintain IV during epidural infusion. Stop infusion and call Anesthesia if patient complains of numbness, tingling, weakness of hands, face or tongue, metallic taste in mouth, ringing in ears, or if patient overly sedated and difficult to arouse., Delivery Mode: Intermittent Mode, Amt/Dose (mL): 4.5, Dose Freq (min): 20 1500 (New Bag - Provider: Gladys King CRNA)1759 (Stopped - Provider: Gladys King CRNA)1813 (Canceled Entry - Provider: Gladys King CRNA) lactated ringers infusion (CANCELED) Intravenous, at 999 mL/hr, CONTINUOUS, Starting on 07/20/15 at 0200, Until 07/20/15 at 1837, Then 125ml after first liter. 0145 (New Bag - Provider: Sa ra Radha Wagoner RN - Comment: LR #1 up)1909 (Stopped - Provider: Skylar Juan RN) lactated ringers infusion (CANCELED) Intravenous, at 125 mL/hr, CONTINUOUS, Starting on 07/20/15 at 0300, Until 07/20/15 at 1837 0212 (New Bag - Provider: Sa ra Radha Wagoner RN - Comment: LR #2 up)1311 (New Bag - Provider: Skylar Juan RN)1602 (New Bag - Provider: Skylar Juan RN)1700 (Stopped - Provider: Skylar Juan RN) oxytocin (pitOCIN) 20 units in LR 1000 mL (CANCELED) 1-20 moira-units/min (3-60 mL/hr), Intravenous, TITRATED, Starting on Tue07/20/15 at 1630, Until Tue07/20/15 at 1837, Start at 2 milliunits/min (6ml/hr), Increase by 2 milliunits/min (6ml/hr) every 30 minutes until active labor (4 cm/regular contractions 2-3 minutes apart and moderate strength). The nurse will contact the physician for further orders when the Oxytocin (Pitocin) has reached 20 milliunits/min (60 ml/hr). 1634 (New Bag - Provider: Bienvenido Juan RN)1707 (Rate/Dose Change - Provider: Skylar Juan RN)1813 (Stopped - Provider: Skylar Juan RN) PRN Medication Order 07/19/2015 07/20/2015 07/21/2015 ibuprofen (ADVIL;MOTRIN) tablet 600 mg 600 mg, Oral, EVERY 6 HOURS PRN, Starting on 07/21/15 at 0000, Until Tue07/22/15 at 0259, Pain 2320 (Given - Provider: Michelle Choe RN) 0610 (Given - Provider: Michelle Choe RN)1149 (Given - Provider: Rosalee Brand, RN)1817 (Given - Provider: Rosalee Brand, RN) oxyCODONE-acetaminophen (PERCOCET) 5-325 mg per tablet 1-2 Tab 1-2 Tablet, Oral, EVERY 4 HOURS PRN, Starting on Tue07/20/15 at 1836, Until Tue07/22/15 at 0259, Pain, For moderate to severe pain unrelieved by oral non-opioid, After TOP COATER or Duramorph precautions. Begin with lowest dose unless otherwise directed. Reassess pain in one hour. If pain unrelieved, remainder of dose may be given to patient. Maximum adult dose of acetaminophen is 4000 mg from all sources in 24 hours. , Post-op witch shiva-glycerin (TUCKS) pad (CANCELED) Topical, PRN, Starting on Tue07/20/15 at 1836, Until Tue07/22/15 at 0259, Other, perineal discomfort, Application site: Perineum, Post-op 6 (Given - Provider: Shannan Strauss, RN) No Frequency Medication Order 07/19/2015 07/20/2015 07/21/2015 fentaNYL (SUBLIMAZE) 50 mcg/mL injection (COMPLETED) 1 dose, Starting on 07/20/15 at 1441, Until 07/20/15 at 1459, GLADYS KING.: cabinet override 1445 (Due)1459 (Given - Provider: Gladys King, HEARINGS REPORTER) documented in this encounter Orders Medications Ordered That Horace ht Not Have Been Administered Count Last Ordered Date First Ordered Date fentaNYL (SUBLIMAZE) 50 mcg/mL injection 1 07/20/2015 fentaNYL 3 mcg/mL and bupiva katalina 0.125 % epidural 200 ml (L/D only) 1 07/20/2015 FENTANYL 3 MCG/ML AND BUPIVI KATALINA 0.125% EPIDURAL epidural 1 07/20/2015 lanolin ointment 1 07/20/2015 oxyCODONE-acetaminophen (PER COCET) 5-325 mg per tablet 1-2 Tab 1 07/20/2015 oxytocin (PITOCIN) 20 units in LR 1000 mL (after placenta delivery) 2 07/20/2015 senna-docusate (SENOKOT-S) 8 .6-50 mg per tablet 2 Tab 1 07/20/2015 temazepam (RESTORIL) capsule 15 mg 1 2015 Lab Orders Without Results Count Last Ordered D ate First Ordered Date TYPE AND SCREEN 1 07/20/2015 Nursing Count Last Ordered Date First Orde red Date ADMISSION 1 07/20/2015 documented in this encounter Care Teams Demand Inspector Relationship Specialty Start Date End Date Nehemias Barron MD [address] [place] [address] PCP - General 12/01/10 Easton Thompson MD [address] [facility] [address] [place] [address] Physician Obstetrics & Gynecology 01/29/14 documented as of this encounter
--- OUTSIDE RECORDS SUMMARY | 2024-03-07 05:07 | XMS_ITS | Encounter Summary ---
Author Organization [place] [address] Care Team Providers Care Graining Press Operator Name Role Phone Nehemias Barron MD Primary Care Provider [phone] Easton Thompson MD Unavailable [phone] Reason for Visit * Reason Comments Care Encounter Details Date Type Department Care Team (Latest Contact Info) Description 09/09/2015 2:20 PM EDT [facility] Visit [facility] [address] [place] [phone] Easton Thompson MD [address] [place] [address] Post depression (Primary Dx); Routine follow-up; Encounter for initial prescription of contraceptive pills; Gestational diabetes mellitus in puerperium Social History Tobacco Use Types Packs/Day Years [...] Sign Reading Time Taken Comments Blood Pressure 110/62 09/09/2015 2:13 PM EDT Pulse - - Temperature - - Respiratory Rate - - Oxygen Saturation - - Inhaled Oxygen Concentration - - Weight 56.2 kg (124 lb) 09/09/2015 2:13 PM EDT Height - - Body Mass Index 20.63 07/20/2015 2:48 AM EDT documented in this [...] Refills Last Filled Start Date End Date levonorgestrel-ethi nyl estradiol (AVIANE;ALESSE;LESS DAVID) 0.1-20 mg-mcg Oral TabletIndications:E ncounter for initial prescription of contraceptive pills Take 1 Tab by mouth daily. 28 Tab 11 09/09/2015 09/02/2016 buPROPion (WELLBUTRIN) 75 mg Oral TabletIndications:P ost depression Take 1 Tab by mouth 3 times daily. 30 Tab 2 09/09/2015 10/31/2015 documented in this encounter Progress Notes * Easton Thompson MD - 09/09/2015 4:39 PM EDT SUBJECTIVE: Bonny Olivares is a 25 y.o. female for Post visit. She is doing well without any issues except for post depression. Ms. Olivares says she has a lot going on in her life now. Baby is colicky. Ms. Olivares had depression following her first delivery and can tell she is becoming so again withthis . Ms. Olivares took several medications for depression following her first delivery and had adverse sideeffects to all of them. She broke out in hives with citalopram. [place] like a zombie with another (zoloft?), and had bad dreams with a third (Prozac?) although it did help her depression. She feels anxious especially at night when she lies awake in bed. Bonny Olivares delivered by spontaneous vaginal delivery. She is not . Patient's last menstrual period was 10/25/2014 (exact date). ROS: Feeling well. No dyspnea or chest pain on exertion. No abdominal pain, change in bowel habits,black or bloody stools. No urinary tract symptoms. SYSTEM DESIGNER ROS: no breast pain or new or enlarging lumps on self exam, no discharge or pelvic pain. OBJECTIVE: GENERAL: The patient appears well, alert, oriented x 3, in no distress. BP 110/62 mmHg Wt 124 lb (56.246 kg) LMP 10/25/2014 (Exact Date) ? No ABDOMEN: soft without tenderness, guarding, mass or organomegaly. EXTREMITIES: no edema, normal peripheral pulses. NEUROLOGICAL: normal, no focal findings. PELVIC EXAM: normal external genitalia, vulva, vagina, cervix, uterus and adnexa Assessment: Normal Post Exam Post depression Orders Placed This Encounter Procedures ??? Glucose Tolerance 2Hr (Base,1Hr,2Hr) Standing Status: Future Number of Occurrences: Standing Expiration Date: 09/08/2016 Plan: Anti-depressants discussed. Rx Wellbutrin. Contraception discussed. Ms. Olivares elects to use OCP's for now. Interested in Nexplanon. Referrals suggested. GTT encouraged, * Prabha Sheikh [facility] - 09/09/2015 2:12 PM EDT [place] Depression Scale I have been able to laugh and see the funny side of things.: 2 I have looked forward with enjoyment to things.: 1 I have blamed myself unnecessarily when things went wrong.: 2 I have been anxious or worried for no good reason.: 3 I have felt scared or panicky for no good reason.: 2 Things have been getting on top of me.: 2 I have been so unhappy that I have had difficulty sleeping.: 3 I have felt sad or miserable.: 2 I have been so unhappy that I have been crying. : 2 The thought of harming myself has occurred to me. : 0 Score: 19 Provider notified: Yes, PPD score > or equal to 10 documented in this encounter Miscellaneous Notes * Patient Instructions - Easton Thompson MD - 09/09/2015 3:03 PM EDT Contraceptive Implant Information A contraceptive implant is a plastic eze that is inserted under your skin. It is usually inserted under the skin of your upper arm. It continually releases small amounts of progestin (synthetic progesterone) into your bloodstream. This prevents an egg from being released from your ovaries. It also thickens your cervical mucus to prevent sperm from entering the cervix, and it thins your uterine lining to prevent a fertilized egg from attaching to your uterus. Contraceptive implants can be effective for up to 3 years. They do not provide protection against sexually transmitted diseases (STDs). The procedure to insert an implant usually takes about 10 minutes. There may be minor bruising, swelling, and discomfort at the insertion site for a couple days. The implant begins to work within thefirst day. Other contraceptive protection may be necessary for 7 days. Be sure to discuss with yourhealth care provider if you need a backup method of contraception. Your health care provider will make sure you are a good candidate for the contraceptive implant. Discuss with your health care provider the possible side effects of the implant. ADVANTAGES ?? It prevents for up to 3 years. ?? It is easily reversible. ?? It is convenient. ?? It can be used when . ?? It can be used by women who cannot take estrogen. DISADVANTAGES ?? You may have irregular or unplanned vaginal bleeding. ?? You may develop side effects, including headache, weight gain, acne, breast tenderness, or mood changes. ?? You may have tissue or nerve damage after insertion (rare). ?? It may be difficult and uncomfortable to remove. ?? Certain medicines may interfere with the effectiveness of the implant.?? REMOVAL OF IMPLANT The implant should be removed in 3 years or as directed by your health care provider. The implant'seffect wears off in a few hours after removal. Your ability to get (fertility) may be restored in 1-2 weeks. A new implant can be inserted as soon as the old one is removed if desired. CONTRAINDICATIONS You should not get the implant if you are experiencing any of the following situations: ?? You are . ?? You have a history of breast cancer, osteoporosis, blood clots, heart disease, diabetes, high blood pressure, liver disease, tumors, or stroke. ? You have undiagnosed vaginal bleeding. ?? You have a sensitivity to any part of the implant. Document Released: 03/16/2012 Document Revised: 11/28/2013 Document Reviewed: 09/24/2013 ExitCare?? Patient Information ??2015 [employer]. This information is not intended to replace advice given to you by your health care provider. Make sure you discuss any questions you have with your health care provider. documented in this encounter Plan of Treatment Scheduled Orders Name Type Priority Associated Diagnoses Orde r Schedule GLUCOSE TOLERANCE 2 HR (BASE,1HR,2HR) Lab Timed Gestational diabetes mellitus in puerperium 1 Occurrences starting 09/09/2015 until 09/08/2016 documented as of this encounter Visit Diagnoses Diagnosis Post depression- Primary Mental disorders of mother, complicating , childbirth, or the puerperium, unspecified as to episode of care Routine follow-up Encounter for initial prescription of contraceptive pills General counseling for prescription of oral contraceptives Gestational diabetes mellitus in puerperium Abnormal maternal glucose tolerance, condition or complication documented in this encounter Care Teams Graining Press Operator Relationship Specialty Start Date End Date Nehemias Barron MD [address] [place] [address] PCP - General 12/01/10 Easton Thompson MD [address] [place] [address] [address] [place] [address] Physician Obstetrics & Gynecology 01/29/14 documented as of this encounter
--- OUTSIDE RECORDS SUMMARY | 2024-03-07 05:07 | XMS_ITS | Encounter Summary ---
Author Organization [place] [address] Care Team Providers Care Motorcycle Mechanic Apprentice Name Role Phone Nehemias Barron MD Primary Care Provider [phone] Easton Thompson MD Unavailable [phone] Reason for Visit * Reason Onset Date Comments Medication Refill 05/19/2015 Encounter Details Date Type Department Care Team (Late st Contact Info) Description 05/19/2015 Telephone [facility] [address] [address] Easton Thompson MD [address] [place] [address] Medication Refill Social History Tobacco Use Types [...] Assessment Author No 05/19/2015 12:54 AM Tata Sosa, OSCAR * Is the person blind or does [...] Refills Last Filled Start Date End Date [facility] MiscIndications:Ges tational diabetes mellitus in second trimester, unspecified diabetic control 1 box by [facility].(Non-D rug; Combo Route) route 4 times daily. 1 box 3 05/19/2015 07/21/2015 documented in this encounter Miscellaneous Notes * Telephone Encounter - Kim Cintron RMA - 05/19/2015 2:59 PM EST Pt called And needs refilled on her lancets. Rx sent to pharmacy. documented in this encounter Plan of Treatment Not on file documented as of this encounter Visit Diagnoses Diagnosis Gestational diabetes mellitus in second trimester, unspecified diabetic control- Primary documented in this encounter Care Teams Motorcycle Mechanic Apprentice Relationship Specialty Start Date End Date Nehemias Barron MD [address] [place] [address] PCP - General 12/01/10 Easton Thompson MD [address] [place] [address] [address] [place] [address] Physician Obstetrics & Gynecology 01/29/14 documented as of this encounter
--- OUTSIDE RECORDS SUMMARY | 2024-03-07 05:07 | XMS_ITS | Encounter Summary ---
Author Organization [place] [address] Care Team Providers Care Solar Fabrication Technician Name Role Phone Nehemias Barron MD Primary Care Provider [phone] Easton Thompson MD Unavailable [phone] Reason for Visit * Reason Onset Date Comments Results 06/03/2015 Visit Follow Up 06/03/2015 Encounter Details Date Type Department Care Team (Late Contact Info) Description 06/03/2015 Telephone [facility] [address] [place] [address] Kash Tabares MD [address] [facility] [address] [place] [address] Results; Visit Follow Up Social [...] encounter Miscellaneous Notes * Telephone Encounter - Niki Fraser ABR-OE - 06/03/2015 3:05 PM EST Pt aware * Telephone Encounter - Niki Fraser ABR-OE - 06/03/2015 3:05 PM EST ----- Message from Kash Tabares MD sent at 06/03/2015 2:19 PM EST ----- Please let pt know discharge swab done @ [facility] was negative, thanks. documented in this encounter Plan of Treatment Not on file documented as of this encounter Visit Diagnoses Not on filedocumented in this encounter Care Teams Solar Fabrication Technician Relationship Specialty Start Date End Date Nehemias Barron MD [address] [place] [address] PCP - General 12/01/10 Easton Thompson MD [address] [place] [address] [address] [place] [address] Physician Obstetrics & Gynecology 01/29/14 documented as of this encounter
--- OUTSIDE RECORDS SUMMARY | 2024-03-07 05:07 | XMS_ITS | Encounter Summary ---
Author Organization [place] [address] Care Team Providers Care Institutional Asset Manager Name Role Phone Nehemias Barron MD Primary Care Provider [phone] Easton Thompson MD Unavailable [phone] Reason for Visit * Reason Onset Date Comments Results 05/15/2015 Visit Follow Up 05/15/2015 Encounter Details Date Type Department Care Team (Late st Contact Info) Description 05/15/2015 Telephone [facility] Crit [address] [place] [phone] Easton Thompson MD [address] [place] [id number] Results; Visit Follow Up Social History Tobacco [...] Telephone Encounter - Ciera Dawson RMA - 05/15/2015 3:09 PM EST Laboratory results received, patient notified by: Patient informed directly. * Telephone Encounter - Ciera Dawson RMA - 05/15/2015 3:07 PM EST Laboratory results received, patient notified by: No answer. Unable to leave message. Voicemail notset up * Telephone Encounter - Ciera Dawson RMA - 05/15/2015 3:06 PM EST ----- Message from Kash Tabares MD sent at 05/15/2015 2:31 PM EST ----- Please let pt know sonogram was ok, no concerns for baby, fluid, or placenta; thanks. documented in this encounter Plan of Treatment Not on file documented as of this encounter Visit Diagnoses Not on filedocumented in this encounter Care Teams Institutional Asset Manager Relationship Specialty Start Date End Date Nehemias Barron MD [address] [place] [address] PCP - General 12/01/10 Easton Thompson MD [address] [place] [address] [address] [place] [address] Physician Obstetrics & Gynecology 01/29/14 documented as of this encounter
--- OUTSIDE RECORDS SUMMARY | 2024-03-07 05:07 | XMS_ITS | Encounter Summary ---
Author Organization [place] [address] Care Team Providers Care Barrel Finisher Name Role Phone Nehemias Barron MD Primary Care Provider [phone] Easton Thompson MD Unavailable [phone] Reason for Visit * Reason Onset Date Comments No Show 06/11/2015 Encounter Details Date Type Department Care Team (Late Contact Info) Description 06/11/2015 Telephone SEP Women's th Crit [address] [place] [address] Shannan Sanchez MD [address] [place], [place] [id number] No Show Social History Tobacco Use Types Packs/Day Years [...] Telephone Encounter - Prabha Sheikh MA - 06/17/2015 3:52 PM EST Apt made * Telephone Encounter - Niki Fraser ABR-OE - 06/13/2015 1:42 PM EST Pt still not taking calls, sending letter. * Telephone Encounter - Ciera Dawson RMA - 06/12/2015 1:23 PM EST Pt is not excepting calls at this time * Telephone Encounter - Niki Fraser ABR-OE - 06/11/2015 1:04 PM EST If pt calls back please make pt aware of no show/ cancellation policy. Pt has now no showed 2, and had 1 cancel for this * Telephone Encounter - Niki Fraser ABR-OE - 06/11/2015 11:45 AM EST YOVANI no showed for apt in [place] today with DR Sanchez. Pt not taking calls at this time documented in this encounter Plan of Treatment Not on file documented as of this encounter Visit Diagnoses Not on filedocumented in this encounter Care Teams Barrel Finisher Relationship Specialty Start Date End Date Nehemias Barron MD [address] [place] [address] PCP - General 12/01/10 Easton Thompson MD [address] [place] [address] [address] [place] [address] Physician Obstetrics & Gynecology 01/29/14 documented as of this encounter
--- OUTSIDE RECORDS SUMMARY | 2024-03-07 05:07 | XMS_ITS | Encounter Summary ---
Author Organization [place] [address] Care Team Providers Care Director Of Sales Support Name Role Phone Nehemias Barron MD Primary Care Provider [phone] Easton Thompson MD Unavailable [phone] Reason for Visit * Reason Comments Loss of Consciousness * Auth/Cert/Inpt Specialty Diagnoses / Procedures Referred By Contac t Referred To Contact Referral ID Status Reason Start Date Expiration Date Visits Re quested Visits Authorized [id number] 1 1 Encounter Details Date Type Department Care Team (Latest Contact Info) Description 05/25/2015 9:22 AM EST - 05/25/2015 3:34 PM [facility] [place] [address] Kash Tabares MD [address] [facility] [address] [place] [address] Discharge Disposition: Home or Self [...] Sign Reading Time Taken Comments Blood Pressure 102/57 05/25/2015 9:48 AM EST Pulse 79 05/25/2015 11:41 AM EST Temperature 36.7 ??C (98 ??F) 05/25/2015 9:41 AM EST Respiratory Rate 20 05/25/2015 9:41 AM EST Oxygen Saturation 99% 05/25/2015 11:41 AM EST Inhaled Oxygen Concentration - - Weight 63 kg (139 lb) 05/25/2015 9:41 AM EST Height 165.1 cm (5' 5 ) 05/25/2015 9:41 AM EST Body Mass Index 23.13 05/25/2015 9:41 AM EST documented in this encounter Functional [...] this encounter Discharge Instructions * Discharge Instructions* Andreea Jennings RN - 05/25/2015 3:30 PM EST [facility] Movement Record (Kick Count) In [...] Movement Record DATE MORNING AFTERNOON EVENING TOTAL Home Undelivered Discharge Instructions After Discharge Orders: Future Appointments Date Time Provider Department Center 05/27/2015 9:00 AM [employer]STATIONAL [employer] CLASS SEP Diab Cov [facility] 06/03/2015 10:40 AM Kash Tabares MD SEP WH Crit OP PHYSICIAN Call physician's office for questions. ?? Diet: normal diet as tolerated ?? Rest: normal activity as tolerated Other instructions: Do kick counts once a day on your baby. Choose the time of day your baby is most active. Get in a comfortable lying or sitting position and time how long it takes to feel 10 kicks, twists, turns, swishes, or rolls. Call your physician or senior production supervisor if there have not been 10 kicks in 2 hours Call physician or senior production supervisor, return to Labor and Delivery, call 911, or go to the nearest Emergency Room if: increased leakage or fluid, contractions more than 6 per 1 hour, decreased movement, persistent low back pain or cramping, bleeding from vaginal area, difficulty urinating, pain with urination, difficulty breathing, new calf pain, persistent headache or vision change documented in this encounter Medications at Time of Discharge acetaminophen Oral TabIndications:Ab dominal pain in , antepartum Take 325 mg by mouth every 4 hours as needed for Pain. 6 Blood-Glucose Meter [facility] MiscIndications:G estational diabetes mellitus in second trimester, unspecified diabetic control 1 Kit by [facility].(Non-Drug; Combo Route) route 4 times daily. 1 Each 0 05/16/2015 6 doxylamine-pyrido xine (DICLEGIS) 10-10 mg Oral Tablet, Delayed Release (E.C.) Take by mouth daily. 6 Lancets [facility] MiscIndications:G estational diabetes mellitus in second trimester, unspecified diabetic control 1 box by [facility].(Non-Drug; Combo Route) route 4 times daily. 1 [...] documented in this encounter Progress Notes * Andreea Jennings RN - 05/25/2015 3:28 PM EST Vital signs stable. heart rate reassuring. No contractions noted. Discharge and follow up instructions given. Patient verbalizes understanding. * Lore Rajan RN - 05/25/2015 1:33 PM EST Pt placed on the monitor and on central bank. Assisted up to bathroom documented in this encounter Plan of Treatment Not on file documented as of this encounter Procedures Procedure Name Priority Date/Time Associated Diagnosis Comments ABORH STAT 05/25/2015 9:58 AM EST ANTIBODY SCREEN IGG STAT 05/25/2015 9 :58 AM EST RHIG CHECK STAT 05/25/2015 9:53 AM EST CBC STAT 05/25/2015 9:53 AM EST KLEIHAUER BETKE STAIN STAT 05/25/2015 9:53 AM EST COMPREHENSIVE METABOLIC PANEL STAT 05/25/2015 9:53 AM EST URINALYSIS POC Routine 05/25/2015 9:43 AM EST DRUGS OF ABUSE, SCREEN ONLY, URINE STAT 05/25/2015 9:30 AM EST documented in this encounter Results * ANTIBODY SCREEN IGG (05/25/2015 9:58 AM EST) ABSC IgG Int Negative [facility] Blood specimen (specimen) 05/25/2015 9:58 AM EST 05/25/2015 10:10 AM EST Dieter Soler MD BLOOD BANK ORDERABLES Fi nal Result Performing Organization Address City/[facility]/ZIP Co de Phone Number [facility] [address] [place] [address] * ABORH (05/25/2015 9:58 AM EST) AB[facility]h Int AB [facility] Blood specimen (specimen) 05/25/2015 9:58 AM EST 05/25/2015 10:10 AM EST Dieter Soler MD BLOOD BANK ORDERABLES Ed ited Result - Final Performing Organization Address City/[facility]/ZIP Co de Phone Number [facility] [address] [place] [address] * RHIG CHECK (05/25/2015 9:53 AM EST) RhIG Check RH POS [facility] Blood specimen (specimen) 05/25/2015 9:53 AM EST 05/25/2015 10:10 AM EST Dieter Soler MD BLOOD BANK ORDERABLES Fi nal Result [facility] [address] [place] [address] * (ABNORMAL) COMPREHENSIVE METABOLIC PANEL (05/25/2015 9:53 AM EST) Pathologist [facility] Sodium 138 136 - 145 mmol/L [facility] Potassium 3.8 3.5 - 5.0 mmol/L [facility] Chloride 100 98 - 107 mmol/L [facility] Total CO2 23 22 - 29 mmol/L [facility] Anion Gap 15 7 - 16 mmol/L [facility] Calcium 8.7 8.6 - 10.2 mg/dL [facility] Glucose Lvl 93 74 - 100 mg/dL [facility] BUN 10 6 - 20 mg/dL [facility] Creatinine 0.54 0.51 - 1.30 mg/dL [facility] Albumin 3.7 3.5 - 5.2 gm/dL [facility] Total Protein 6.3(L) 6.4 - 8.3 gm/dL [facility] Bili Total 0.2 0.1 - 1.3 mg/dL [facility] AST 19 <=40 IU/L [facility] ALT 14 <=41 IU/L [facility] Alk Phos 73 35 - 104 IU/L [facility] GFR Afr Am >60 [facility] GFR Non Afr Am >60 [facility] Blood specimen (specimen) UPPER LIMB STRUCTURE / Unknown 05/25/2015 9:53 AM EST 05/25/2015 10:10 AM EST Dieter Soler MD CHEMISTRY ORDERABLES Silvestre zane Result - Final [facility] [address] [place] [address] * (ABNORMAL) KLEIHAUER BETKE STAIN (05/25/2015 9:53 AM EST) Pathologist [facility] % Cells 0.2(H) <=0.0 % [facility] Comment: This test reports the percentage of red blood cells in the maternal circulation resulting from recent -maternal hemorrhage. ??To determine the volume (in mL) of erythrocytes in the maternal circulation, multiply the test result by 50 (this assumes a total maternal circulatory volume of 5,000 mL). ??If indicated, follow up with the Blood Bank for RhIg dosage and administration. ? The Kleihauer-Betke test is a widely used standard method to quantify fetomaternal hemorrhage. The accuracy of the Kleihauer-Betke test depends on several variables, and the test cannot distinguish hemoglobin F from the hemoglobin F that may be present in adults with thalassemia or sickle cell disease. Blood specimen (specimen) UPPER LIMB STRUCTURE / Unknown 05/25/2015 9:53 AM EST 05/25/2015 10:10 AM EST us Dieter Soler MD HEMATOLOGY ORDERABLES Fi nal Result [facility] [address] [place] [address] * (ABNORMAL) CBC (05/25/2015 9:53 AM EST) [facility] WBC 6.0 4.0 - 11.0 x10(3)/mcL [facility] RBC 3.39(L) 3.80 - 5.10 x10(6)/mcL [facility] Hgb 11.2(L) 12.0 - 15.6 gm/dL [facility] Hct 33.3(L) 35.7 - 45.9 % [facility] MCV 98.0 82.5 - 99.8 fL [facility] MCH 33.0 27.0 - 34.3 pg [facility] MCHC 33.7 32.1 - 35.3 gm/dL [facility] RDW 12.9 11.5 - 15.0 % [facility] Platelet 186 144 - 423 x10(3)/mcL [facility] MPV 8.7 6.8 - 10.8 fL [facility] Blood specimen (specimen) UPPER LIMB STRUCTURE / Unknown 05/25/2015 9:53 AM EST 05/25/2015 10:10 AM EST us Dieter Soler MD HEMATOLOGY ORDERABLES Fi nal Result Performing Organization Address City/[facility]/ZIP Co de Phone Number [facility] [address] [place] [address] * (ABNORMAL) URINALYSIS POC (05/25/2015 9:43 AM EST) UA Color POC Yellow SE POI NT [facility]ARE [facility] UA Appear POC Clear Clear [facility] PO INT OF CARE [facility] UA Gluc POC Negative Negative SE POIN T [facility] UA Ketones POC Negative Negative [facility] P OINT OF CARE [facility] UA Blood POC Negative Negative [facility] POI NT OF CARE [facility] UA pH POC 7.0 5.0 - 8.0 [facility] POINT [facility] CARE [facility] UA Protein POC Negative Negative SE P OINT OF CARE [facility] UA Urobilinogen POC 0.2 mg/dl <=1 mg/dl [facility] POINT [facility] CARE [facility] UA Nitrite POC Negative Negative [facility] P OINT OF CARE [facility] UA Leuk Est POC Trace(A) Negative [facility] PO[facility] UA SG POC 1.020 1.001 - 1.035 [facility] Urine specimen (specimen) 05/25/2015 9:43 AM EST 05/25/2015 9:43 AM EST us Kash Tabares MD POINT OF CARE TEST ORDERABLES F inal Result Performing Organization Address City/[facility]/ZIP Co de Phone Number [facility] [place] [address] * DRUGS OF ABUSE, SCREEN ONLY, URINE (05/25/2015 9:30 AM EST) Cannaboinoid Screen, Urine Absent 50 ng/mL [facility] Benzodiazepines Screen Absent 200 ng/mL [facility] Cocaine(Metab.)Scr een, Urine Absent 150 ng/mL [facility] Opiate 300 Screen Absent 300 ng/mL [facility] Barbiturate Screen, Urine Absent 200 ng/mL [facility] Amphetamine Screen, Urine Absent 500 ng/mL [facility] Phencyclidine Screen Absent 25 ng/mL [facility] Methadone Screen, Urine Absent 300 ng/mL [facility] Oxycodone Screen Absent 100 ng/mL [facility] 6 AM (Heroin) Screen Absent 10 ng/mL [facility] Buprenorphine Screen Absent 5 ng/mL [facility] Creatinine Ur 78.0 mg/dL [facility] Comment: Greater than 20: Consistent with [...] business days should additional orders/testing be desired. [facility] Urine specimen (specimen) URINE SPECIMEN COLLECTION, CLEAN CATCH / Unknown 05/25/2015 9:30 AM EST 05/25/2015 9:45 AM EST us Dieter Soler MD URINE ORDERABLES Final R esult [facility] [address] [place] [address] documented in this encounter Visit Diagnoses Not on filedocumented in this encounter Administered Medications Inactive Administered Medications - up to 1 most recent administrations Medication Order MAR Action Action Date Dose Rate Site lactated ringers infusion Intravenous, at 100 mL/hr, CONTINUOUS, Starting on 05/25/15 at 0945, Until 05/25/15 at 1935 New Bag 05/25/2015 11:06 AM EST 100 mL/hr 100 mL/hr documented in this encounter Active and Recently Administered Medications Times are shown in EST. Continuous Medication Order 05/23/2015 05/24/2015 05/25/2015 lactated ringers infusion (CANCELED) Intravenous, at 100 mL/hr, CONTINUOUS, Starting on 05/25/15 at 0945, Until 05/25/15 at 1935 1005 (New Bag - Prov ider: Lore Rajan RN - Comment: #1)1106 (New Bag - Provider: Lore Rajan RN - Comment: #2)1400 (Stopped - Provider: Andreea Jennings RN) documented in this encounter Orders Lab Orders Without Results Count Last Ordered D ate First Ordered Date TYPE AND SCREEN 1 05/25/2015 Nursing Count Last Ordered Date First Orde red Date PERFORM DIPSTICK URINALYSIS 2 05/25/2015 documented in this encounter Care Teams Director Of Sales Support Relationship Specialty Start Date End Date Nehemias Barron MD [address] [place] [address] PCP - General 12/01/10 Easton Thompson MD [address] [place] [address] [address] [place] [address] Physician Obstetrics & Gynecology 01/29/14 documented as of this encounter
--- OUTSIDE RECORDS SUMMARY | 2024-03-07 05:07 | XMS_ITS | Encounter Summary ---
Author Organization [place] [address] Care Team Providers Care Animal Rides Manager Name Role Phone Nehemias Barron MD Primary Care Provider [phone] Easton Thompson MD Unavailable [phone] Reason for Visit * Auth/Cert/Inpt Specialty Diagnoses / Procedures Referred By Eusebia t Referred To Contact Referral ID Status Reason Start Date Expiration Date Visits Re quested Visits Authorized [id number] 1 1 Encounter Details Date Type Department Care Team (Latest Contact Info) Description 05/15/2015 11:00 AM EST - 05/15/2015 12:14 PM [facility] Hospital Encounter EDG PERINATOLOGY [facility] [place] [address] Kash Tabares MD [address] [facility] [address] [place] [phone] Traumatic injury during in second trimester; Vaginal bleeding during , antepartum; Abdominal pain affecting , antepartum Discharge Disposition: Home or Self Care Social [...] Priority Date/Time Associated Diagnosis Comments PN US OB 14+WKS, LOW RISK ANATOMY OR NEW INDICATION SINGLE GEST Routine 05/15/2015 12:14 PM EST Traumatic injury during in second trimester Vaginal bleeding during , antepartum Abdominal pain affecting , antepartum documented in this encounter Results * PN US OB 14+ WEEKS SINGLE OR FIRST GESTATION (05/15/2015 12:14 PM EST) Anatomical Region Laterality Modality Pelvis Ultrasound 05/15/2015 us Kash Tabares MD IMG ORDERABLES Final Result documented in this encounter Visit Diagnoses Diagnosis Traumatic injury during in second trimester Vaginal bleeding during , antepartum Abdominal pain affecting , antepartum documented in this encounter Care Teams Animal Rides Manager Relationship Specialty Start Date End Date Nehemias Barron MD [address] [place] [id number] PCP - General 12/01/10 Eatson Thompson MD [address] [place] [address] [address] [place] [address] Physician Obstetrics & Gynecology 01/29/14 documented as of this encounter
--- OUTSIDE RECORDS SUMMARY | 2024-03-07 05:07 | XMS_ITS | Encounter Summary ---
Author Organization [place] [address] Care Team Providers Care Rag Collector Name Role Phone Nehemias Barron MD Primary Care Provider [phone] Easton Thompson MD Unavailable [phone] Reason for Visit * Reason Comments Laboring * Auth/Cert/Inpt Specialty Diagnoses / Procedures Referred By Contac t Referred To Contact Diagnoses Normal labor Referral ID Status Reason Start Date Expiration Date Visits Re quested Visits Authorized [id number] 1 1 Encounter Details Date Type Department Care Team (Latest Contact Info) Description 07/17/2015 11:00 AM EDT - 07/17/2015 12:10 PM EDT [facility] [place] [address] Kash Tabares MD [address] [facility] [facility] [address] [place] [address] Discharge Disposition: Home or Self [...] Sign Reading Time Taken Comments Blood Pressure 111/67 07/17/2015 11:15 AM EDT Pulse 86 07/17/2015 11:15 AM EDT Temperature - - Respiratory Rate - - Oxygen Saturation - - Inhaled Oxygen Concentration - - Weight 64.9 kg (143 lb) 07/17/2015 11:18 AM EDT Height 160 cm (5' 3 ) 07/17/2015 11:18 AM EDT Body Mass Index 25.33 07/17/2015 11:18 AM EDT documented in this encounter Functional [...] this encounter Discharge Instructions * Discharge Instructions* Alexandra Major RN - 07/17/2015 12:08 PM EDT [facility] Movement Record (Kick Count) In [...] of the day before as seen with For example: Morning Afternoon Evening Total Day 1 25 30 23 78 Day 2 4 12 8 30* If you have any questions or problems, please call your Physician???s office for further instructions. [facility]MENT [facility]ENTER Movement Record DATE MORNING AFTERNOON EVENING TOTAL Home Undelivered Discharge Instructions After Discharge Orders: . ?? Diet: normal diet as tolerated ?? Rest: normal activity as tolerated Other instructions: Do kick counts once a day on your baby. Choose the time of day your baby is most active. Get in a comfortable lying or sitting position and time how long it takes to feel 10 kicks, twists, turns, swishes, or rolls. Call your physician or pouncer if there have not been 10 kicks in 2 hours Call physician or pouncer, return to Labor and Delivery, call 911, [...] as needed for Pain. 6 Blood-Glucose Meter [facility] MiscIndications:G estational diabetes mellitus in second trimester, unspecified diabetic control 1 Kit by [facility].(Non-Drug; Combo Route) route 4 times daily. 1 Each 0 05/16/2015 6 doxylamine-pyrido xine (DICLEGIS) 10-10 mg Oral Tablet, Delayed Release (E.C.) Take by mouth daily. 6 ibuprofen (ADVIL;MOTRIN) 600 mg Oral Tablet Take 1 Tab by mouth every 6 hours as needed for Pain. 60 Tab 1 07/21/2015 6 Lancets [facility] MiscIndications:G estational diabetes mellitus in second trimester, unspecified diabetic control 1 box by [facility].(Non-Drug; Combo Route) route 4 times daily. 1 box 3 05/19/2015 6 malathion (OVIDE) 0.5 % Top LotionIndications :Head lice Apply topically See Admin Instructions. See admin instructions. 1 Bottle 1 04/29/2014 6 ondansetron (ZOFRAN-ODT) 4 mg Oral Tablet, Rapid Dissolve Take 4 mg by mouth every 6 hours as needed for Nausea. 6 oxyCODONE-acetami nophen (PERCOCET) 5-325 mg Oral Tablet Take 1-2 Tabs by mouth every 4 hours as needed for Pain (For moderate to severe pain unrelieved by oral non-opioid). 30 Tab 0 07/21/2015 6 documented as of this encounter Discharge Disposition Disposition Code Departure Means Destination Home or Self Care documented in this encounter Progress Notes * Alexandra Major RN - 07/17/2015 12:12 PM EDT Pt discharged home with instructions. Pt verbalized understanding * Alexandra Major RN - 07/17/2015 11:57 AM EDT 07/17/15 1155 NST NST Performed? Yes $ NST charge Yes Nonstress Test Uterine Findings Uterine Irritability Yes Contractions Irregular Nonstress Test Fetus A Variability 6-25 BPM Decelerations None Accelerations Yes Acoustic Stimulator No Baseline 130 BPM Interpretation Fetus A Nonstress Test Interpretation Reactive Overall Impression Reassuring Cosigned by Shannan De Leon MD at 09/26/2015 6:56 PM EDT * Alexandra Major RN - 07/17/2015 11:05 AM EDT Pt to triage for ctx. Placed on monitor and notified dr acosta of pt. documented in this encounter Plan of Treatment Not on file documented as of this encounter Visit Diagnoses Not on filedocumented in this encounter Administered Medications Inactive Administered Medications - up to 1 most recent administrations Medication Order MAR Action Action Date Dose Rate Site oxyCODONE-acetaminophen (PERCOCET) 5-325 mg per tablet 1 Tab 1 Tablet, Oral, ONCE, 1 dose, On Patti 07/17/15 at 1200, Maximum adult dose of acetaminophen is 4000 mg from all sources in 24 hours. Given 07/17/2015 12:00 PM EDT 1 Tablet documented in this encounter Active and Recently Administered Medications Times are shown in EDT. Scheduled Medication Order 07/15/2015 07/16/2015 07/17/2015 oxyCODONE-acetaminophen (PERCOCET) 5-325 mg per tablet 1 Tab (COMPLETED) 1 Tablet, Oral, ONCE, 1 dose, On Patti 07/17/15 at 1200, Maximum adult dose of acetaminophen is 4000 mg from all sources in 24 hours. 1200 (Given - Provid er: Alexandra Major RN) documented in this encounter Care Teams Rag Collector Relationship Specialty Start Date End Date Nehemias Barron MD [address] [place] [address] PCP - General 12/01/10 Easton Thompson MD [address] [place] [address] [address] [place] [address] Physician Obstetrics & Gynecology 01/29/14 documented as of this encounter
--- OUTSIDE RECORDS SUMMARY | 2024-03-07 05:07 | XMS_ITS | Encounter Summary ---
Author Organization [place] [address] Care Team Providers Care Sales Operations Lead Name Role Phone Nehemias Barron MD Primary Care Provider [phone] Easton Thompson MD Unavailable [phone] Reason for Visit * Reason Comments Laboring * Auth/Cert/Inpt Specialty Diagnoses / Procedures Referred By Contac t Referred To Contact Referral ID Status Reason Start Date Expiration Date Visits Re quested Visits Authorized [id number] 1 1 Encounter Details Date Type Department Care Team (Latest Contact Info) Description 05/18/2015 10:48 PM EST - 05/19/2015 1:34 AM [facility] Hospital Encounter [facility] [place] [address] Kash Tabares MD [address] [facility] [address] [place] [address] Discharge Disposition: Home or Self [...] Sign Reading Time Taken Comments Blood Pressure 107/58 05/18/2015 11:11 PM EST Pulse 88 05/18/2015 11:11 PM EST Temperature 36.7 ??C (98 ??F) 05/18/2015 11:11 PM EST Respiratory Rate 18 05/18/2015 11:11 PM EST Oxygen Saturation - - Inhaled Oxygen Concentration - - Weight 62.1 kg (137 lb) 05/18/2015 11:11 PM EST Height 165.1 cm (5' 5 ) 05/18/2015 11:11 PM EST Body Mass Index 22.8 05/18/2015 11:11 PM EST documented in this encounter Functional [...] Entry Date Author No 05/19/2015 12:54 AM Ttaa Sosa RN documented in this encounter Discharge Instructions * Discharge Instructions* Tata Maharaj RN - 05/19/2015 12:56 AM EST [facility] Movement Record (Kick Count) In order to [...] Future Appointments Date Time Provider Department Center 05/20/2015 11:40 AM Easton Thompson MD [facility] Crit OP PHYSICIAN 06/03/2015 10:40 AM Kash Tabares MD [facility] Crit OP PHYSICIAN Call physician or finnish rubber's office for discharge instructions as needed. Diet: Calculated carbohydrate diet, drink 10-12 glasses of water daily Rest: no restrictions Other instructions: Do kick counts once a day on your baby. Choose the time of day your baby is most active. Get in a comfortable lying or sitting position and time how long it takes to feel 10 kicks, twists, turns, swishes, or rolls. Call your physician or [place] if there have not been 10 kicks in 2 hours Call physician or [place], return to Labor and Delivery, call 911, [...] as needed for Pain. 6 Blood-Glucose Meter [facility] MiscIndications:G estational diabetes mellitus in second trimester, unspecified diabetic control 1 Kit by [facility].(Non-Drug; Combo Route) route 4 times daily. 1 Each 0 05/16/2015 6 doxylamine-pyrido xine (DICLEGIS) 10-10 mg Oral Tablet, Delayed Release (E.C.) Take by mouth daily. 6 malathion (OVIDE) 0.5 % Top LotionIndications :Head lice Apply topically See Admin Instructions. See admin instructions. 1 Bottle 1 04/29/2014 6 ondansetron (ZOFRAN-ODT) 4 mg Oral Tablet, Rapid Dissolve Take 4 mg by mouth every 6 hours as needed for Nausea. 6 documented as of this encounter Discharge Disposition Disposition Code Departure Means Destination Home or Self Custodial documented in this encounter Progress Notes * Tata Maharaj, RN - 05/19/2015 1:15 AM EST Discharge instructions given. Pt signed and verbalized understanding. 0130 -Discharged home ambulatory. documented in this encounter Plan of Treatment Not on file documented as of this encounter Procedures Procedure Name Priority Date/Time Associated Diagnosis Comments FIBRONECTIN STAT 05/19/2015 12: 05 AM EST URINALYSIS STAT 05/18/2015 11:25 PM EST documented in this encounter Results * FIBRONECTIN (05/19/2015 12:05 AM EST) Fibronectin Negative Negative [facility] Vaginal SPECIMEN FROM VAGINA / Unknown 05/19/2015 12:05 AM EST 05/19/2015 12:05 AM EST Shannan De Leon MD BODY FLUIDS AND STOOLS OR DERABLES Final Result Performing Organization Address [place] de Phone Number [facility] [address] [place] [address] * (ABNORMAL) URINALYSIS (05/18/2015 11:25 PM EST) UA Color Yellow [facility] UA Appear Clear Clear [facility] UA Glucose Negative Negative [facility] U[facility] Ketones 1+ (15 mg/dl)(A) Negative [facility] UA Blood Negative Negative [facility] UA pH 6.0 5.0 - 8.0 [facility] Comment:Reference range kp d for random specimens only. UA Protein Trace(A) Negative [facility] UA Urobilinogen 0.2 E.U./dL <=1 E.U./dL [facility] UA Nitrite Negative Negative [facility] UA Leuk Est Negative Negative [facility] UA Spec Grav >=1.030 1.001 - 1.035 [facility] Comment:Reference range kp d for random specimens only. UA RBC 4(H) 0 - 3 /HPF [facility] UA Squam Epi 4+ [facility] UA Mucus 3+ [facility] Urine specimen (specimen) URINE SPECIMEN COLLECTION, CLEAN CATCH / Unknown 05/18/2015 11:25 PM EST 05/18/2015 11:28 PM EST Shannan De Leon MD URINE ORDERABLES Edited R esult - Final Performing Organization Address [facility] Co de Phone Number [facility] [address] [place] [address] documented in this encounter Visit Diagnoses Not on filedocumented in this encounter Administered Medications Inactive Administered Medications - up to 1 most recent administrations Medication Order MAR Action Action Date Dose Rate Site lactated ringers infusion Intravenous, at 999 mL/hr, CONTINUOUS, Starting on Tue05/19/15 at 0000, Until Tue05/19/15 at 0535 New Bag 05/19/2015 12:20 AM EST 999 mL/hr terbutaline (BRETHINE) injection 0.25 mg 0.25 mg, Subcutaneous, ONCE, 1 dose, On Tue05/19/15 at 0000, May repeat in 20 minutes for maximum of 2 doses Given 05/19/2015 12:04 AM EST 0.25 mg Right Arm documented in this encounter Active and Recently Administered Medications Times are shown in EST. Scheduled Medication Order 05/17/2015 05/18/2015 05/19/2015 terbutaline (BRETHINE) injection 0.25 mg (COMPLETED) 0.25 mg, Subcutaneous, ONCE, 1 dose, On Tue05/19/15 at 0000, May repeat in 20 minutes for maximum of 2 doses 0004 (Given - Provid er: So Marrero, OSCAR) Continuous Medication Order 05/17/2015 05/18/2015 05/19/2015 lactated ringers infusion (CANCELED) Intravenous, at 999 mL/hr, CONTINUOUS, Starting on Tue05/19/15 at 0000, Until Tue05/19/15 at 0535 0020 (New Bag - Prov ider: Divina Aviles RN - Comment: [id number] (Stopped - Provider: Tata Maharaj RN) documented in this encounter Orders Medications Ordered That Horace ht Not Have Been Administered Count Last Ordered Date First Ordered Date terbutaline (BRETHINE) 1 mg/mL injection 1 05/18/2015 documented in this encounter Care Teams Sales Operations Lead Relationship Specialty Start Date End Date Nehemias Barron MD [address] [place] [address] PCP - General 12/01/10 Easton Thompson MD [address] [place] [address] [address] [place] [address] Physician Obstetrics & Gynecology 01/29/14 documented as of this encounter
--- OUTSIDE RECORDS SUMMARY | 2024-03-07 05:08 | XMS_ITS | Encounter Summary ---
Author Organization [place] [address] Care Team Providers Care Wirer Helper Name Role Phone Nehemias Barron MD Primary Care Provider [phone] Easton Thompson MD Unavailable Encounter Details Date Type Department Care Team (Latest Contact Info) Description 04/19/2015 10:45 AM [facility] Hospital Encounter [facility] [address] [facility] [place] [id number] Left without seen Social History Tobacco Use Types Packs/Day Years [...] hearing? Answer Date of Assessment Author No 03/12/2015 1:47 AM EST Neel Cross RN * Is the person blind or does he/she have serious difficulty seeing even when wearing glasses? Answer Date of Assessment Author No 03/12/2015 1:47 AM Neel Donovan RN * Does this person have serious difficulty walking or climbing stairs? Answer Date of Assessment Author No 03/12/2015 1:47 AM Neel Donovan RN * Does this person have difficulty dressing or bathing? Answer Date of Assessment Author No 03/12/2015 1:47 AM Neel Donovan RN * Because of a physical, mental or emotional condition, does this person have difficulty doing errands alone such as visiting a doctor's office or shopping? Answer Date of Assessment Author No 03/12/2015 1:47 AM Neel Donovan RN documented as of this encounter Mental Status * Because of a physical, mental or emotional condition, does this person have serious difficulty concentrating, remembering or making decisions? Answer Entry Date Author No 03/12/2015 1:47 AM Neel Donovan RN documented in this encounter Plan of [...] COVID-19 08/03/2019 08/03/2019 08/04/2019 3:08 PM EDT documented as of this encounter Care Teams Wirer Helper Relationship Specialty Start Date End Date Nehemias Barorn MD [address] [place] [phone] PCP - General 12/01/10 Easton Thompson MD [address] [place] [address] [address] [place] [address] Physician Obstetrics & Gynecology 01/29/14 documented as of this encounter
--- OUTSIDE RECORDS SUMMARY | 2024-03-07 05:08 | XMS_ITS | Encounter Summary ---
Author Organization [place] [address] Care Team Providers Care Sales Service Technician Name Role Phone Nehemias Barron MD Primary Care Provider [phone] Easton Thompson MD Unavailable [phone] Reason for Visit * Reason Onset Date Comments ED Follow-Up Call 01/09/2015 ED Follow Up-A nkle Sprain Encounter Details Date Type Department Care Team (Latest Contact Info) Description 01/09/2015 Patient Outreach [facility] [address] [place] [address] Kristi Ewing RN ED Follow-Up Call (ED Follow Up-Ankle Sprain) Social History Tobacco Use Types Packs/Day Years Used Date Smoking Tobacco: Every Day Cigarettes 1 8 Smokeless Tobacco: Never Comments:info refused Alcohol [...] on file documented as of this encounter Miscellaneous Notes * Telephone Encounter - Kristi Ewing RN - 01/09/2015 11:33 AM EDT Pt was seen in ED 01/08 for ankle sprain. Unable to make contact with pt at this time. Left message with contact information on pt voicemail. Letter sent. documented in this encounter Plan of Treatment Not on file documented as of this encounter Visit Diagnoses Not on filedocumented in this encounter Care Teams Sales Service Technician Relationship Specialty Start Date End Date Nehemias Barron MD [address] [place] [address] PCP - General 12/01/10 Easton Thompson MD [address] [place] [address] [address] [place] [address] Physician Obstetrics & Gynecology 01/29/14 documented as of this encounter
--- OUTSIDE RECORDS SUMMARY | 2024-03-07 05:08 | XMS_ITS | Encounter Summary ---
Author Organization [place] [address] Care Team Providers Care Manager Pool Name Role Phone Nehemias Barron MD Primary Care Provider [phone] Easton Thompson MD Unavailable [phone] Reason for Referral * Ultrasound (Routine) - Closed Specialty Diagnoses / Procedures Referred By Deeac t Referred To Contact Obstetrics Diagnoses Supervision of normal , second trimester Procedures PN US OB FOLLOW UP TRANSABDOMINAL APPROACH EACH GESTATION PN US OB LIMITED 1 + FETUSES Kash Tabares MD [address] [facility] [place] [address] Phone: tel: fax: [facility] [address] [place] [address] Phone: tel: fax: Referral ID Status Reason Start Date Expiration Date Visits Re quested Visits Authorized [id number] Closed 04/14/2015 04/13/2016 1 1 Reason for Visit * Ultrasound (Routine) - Closed Specialty Diagnoses / Procedures Referred By Contac t Referred To Contact Obstetrics Diagnoses Supervision of normal , second trimester Procedures PN US OB FOLLOW UP TRANSABDOMINAL APPROACH EACH GESTATION PN US OB LIMITED 1 + FETUSES Kash Tabares MD [address] [facility] [place] [address] Phone: tel: fax: [facility] M[facility] Center [facility] [address] [place] [id number] Phone: tel: fax: Referral ID Status Reason Start Date Expiration Date Visits Re quested Visits Authorized [id number] Closed 04/14/2015 04/13/2016 1 1 Encounter Details Date Type Department Care Team (Latest Contact Info) Description 04/15/2015 4:12 PM EST - 04/15/2015 11:59 PM [facility] Hospital Encounter EDG PERINATOLOGY [facility] [place] [address] Kash Tabares MD [address] [facility] [place] [address] Supervision of normal , second trimester Discharge Disposition: Home or Self Care [...] 03/12/2015 1:47 AM Neel Donovan RN * Is the person blind or [...] Neel Donovan RN documented in this encounter Medications at [...] Date/Time Associated Diagnosis Comments PN US OB FOLLOW UP TRANSABDOMINAL APPROACH EACH GESTATION Routine 04/15/2015 5:01 PM EST Supervision of normal , second trimester documented in this encounter Results * PN US OB FOLLOW UP TRANSABDOMINAL APPROACH EACH GESTATION (04/15/2015 5:01 PM EST) Anatomical Region Laterality Modality Pelvis Ultrasound 04/15/2015 us Kash Tabares MD IMG ORDERABLES Final Result documented in this encounter Visit Diagnoses Diagnosis Supervision of normal , second trimester documented in this encounter Care Teams Manager Pool Relationship Specialty Start Date End Date Nehemias Barron MD [address] [place] [address] PCP - General 12/01/10 Easton Thompson MD [address] [place] [address] Physician Obstetrics & Gynecology 01/29/14 documented as of this encounter
--- OUTSIDE RECORDS SUMMARY | 2024-03-07 05:08 | XMS_ITS | Encounter Summary ---
Author Organization [place] [address] Care Team Providers Care Steel Die Engraver Name Role Phone Nehemias Barron MD Primary Care Provider [phone] Easton Thompson MD Unavailable [phone] Reason for Visit * Reason Comments Routine Visit Encounter Details Date Type Department Care Team (Latest Contact Info) Description 02/28/2015 4:00 PM EST ROUTINE FOLLOW UP OB VISIT [facility] [address] [place] [address] Kash Tabares MD [address] [facility] [address] [place] [address] Supervision of normal , second trimester (Primary Dx) Social History Tobacco Use Types [...] Sign Reading Time Taken Comments Blood Pressure 104/66 02/28/2015 3:04 PM EST Pulse - - Temperature - - Respiratory Rate - - Oxygen Saturation - - Inhaled Oxygen Concentration - - Weight 57.1 kg (125 lb 12.8 oz) 02/28/2015 3:04 PM EST Height - - Body Mass Index 20.3 02/10/2015 11:40 AM EST documented in this encounter Progress Notes * Kash Tabares MD - 03/04/2015 1:45 AM EST 17+0, +FM, doing well, quad /cf / TSH ordered pt to have drawn, anatomy ordered, precautions reviewed * Niki Fraser ABR-OE - 02/28/2015 3:02 PM EST 17w0d Edema No Contractions No Loss of Fluid No Bleeding No Results for orders placed or performed in visit on 02/28/15 POCT URINALYSIS DIPSTICK Result Value Ref Range Color, UA yellow Clear, Yellow, [place], Rust Clarity, UA clear Clear, Cloudy Glucose, UA neg g/dl% Bilirubin, UA neg Pos/Neg Ketones, UA neg Pos/Neg Spec Grav, UA 1.020 1.001 - 1.035 g/dl Blood, UA neg Pos/Neg pH, UA 6.0 5.0 - 8 Protein, UA trace Pos/Neg Urobilinogen, UA 0.2 0.2 - 1.0 mg/dL Leukocytes, UA neg Pos/Neg Nitrite, UA neg Pos/Neg UA Appear POC NA Lot Number [id number] Expiration Date 12/2015 SeriAl # NA documented in this encounter Miscellaneous Notes * Patient Instructions - Kash Tabares MD - 03/04/2015 1:46 AM EST Call office anytime with concerns. documented in this encounter Plan of Treatment Not on file documented as of this encounter Procedures Procedure Name Priority Date/Time Associated Diagnosis Comments POCT URINALYSIS DIPSTICK Routine 02/28/2015 3:12 PM EST Supervision of normal , second trimester documented in this encounter Results * POCT URINALYSIS DIPSTICK (02/28/2015 3:12 PM EST) Color, UA yellow Clear, Yellow, [place], Rust SEP OFFICE Clarity, UA clear Clear, Cloudy SEP OFFICE Glucose, UA neg g/dl% SEP OFFICE Bilirubin, UA neg Pos/Neg SEP OFFICE Ketones, UA neg Pos/Neg SEP chopped strand operator Grav, UA 1.020 1.001 - 1.035 g/dl SEP OFFICE Blood, UA neg Pos/Neg SEP OFFICE pH, UA 6.0 5.0 - 8 SEP OFFICE Protein, UA trace Pos/Neg SEP OFFICE Urobilinogen, UA 0.2 0.2 - 1.0 mg/dL SEP OFFICE Leukocytes, UA neg Pos/Neg SEP OFFICE Nitrite, UA neg Pos/Neg SEP OFFICE UA Appear POC NA SEP OFFICE Lot Number [id number] SEP OFFICE Expiration Date 12/2015 SEP OFFICE SeriAl # NA SEP OFFICE Urine specimen (specimen) 02/28/2015 3:12 PM EST Kash Tabares MD POINT OF CARE TEST ORDERABLES F inal Result SEP OFFICE documented in this encounter Visit Diagnoses Diagnosis Supervision of normal , second trimester- Primary documented in this encounter Historical Medications * This list may reflect changes made after this encounter. vit-iron fumarate-FA 27-0.8 mg Oral TabletIndication s: Take 1 Tab by mouth daily. Indications: 6 added in this encounter Care Teams Steel Die Engraver Relationship Specialty Start Date End Date Nehemias Barron MD [address] [place] [address] PCP - General 12/01/10 Easton Thompson MD [address] [place] [address] Physician Obstetrics & Gynecology 01/29/14 documented as of this encounter
--- OUTSIDE RECORDS SUMMARY | 2024-03-07 05:08 | XMS_ITS | Encounter Summary ---
Author Organization [place] [address] Care Team Providers Care Cheese Specialist Name Role Phone Nehemias Barron MD Primary Care Provider [phone] Easton Thompson MD Unavailable [phone] Reason for Visit * Reason Onset Date Comments ED Follow-Up Call 02/03/2015 ED Follow Up-A bdominal Pain in Encounter Details Date Type Department Care Team (Latest Contact Info) Description 02/03/2015 Patient Outreach [facility] [address] [facility] [place] [address] Kristi Ewing RN ED Follow-Up Call (ED Follow Up-Abdominal Pain in ) Social History Tobacco Use Types Packs/Day [...] Telephone Encounter - Kristi Ewing RN - 02/03/2015 10:34 AM EDT Pt was seen in ED 02/01 for abdominal pain in . Unable to make contact with pt at this time. Left message with contact information on pt voicemail. Letter sent. documented in this encounter Plan of Treatment Not on file documented as of this encounter Visit Diagnoses Not on filedocumented in this encounter Care Teams Cheese Specialist Relationship Specialty Start Date End Date Nehemias Barron MD [address] [place] [address] PCP - General 12/01/10 Easton Thompson MD [address] [place] [address] [address] [place] [address] Physician Obstetrics & Gynecology 01/29/14 documented as of this encounter
--- OUTSIDE RECORDS SUMMARY | 2024-03-07 05:08 | XMS_ITS | Encounter Summary ---
Author Organization [place] [address] Care Team Providers Care Respiratory Manager Name Role Phone Nehemias Barron MD Primary Care Provider [phone] Easton Thompson MD Unavailable [phone] Reason for Visit * Ultrasound (Routine) - Closed Specialty Diagnoses / Procedures Referred By Contac t Referred To Contact Obstetrics Diagnoses Supervision of normal , second trimester Procedures PN US CERVICAL LENGTH W > 14 WEEKS PN US OB DETAIL ANATOMY SINGLE OR FIRST GESTATION PN US OB 14+ WEEKS SINGLE OR FIRST GESTATION Kash Tabares MD [address] [place] [address] Phone: tel: fax: [facility] M[facility] [address] [place] [address] Phone: tel: fax: Referral ID Status Reason Start Date Expiration Date Visits Re quested Visits Authorized [id number] Closed 03/24/2015 03/23/2016 1 1 Encounter Details Date Type Department Care Team (Latest Contact Info) Description 03/24/2015 3:11 PM EST - 03/24/2015 11:59 PM EST Hospital Encounter EDG PERINATOLOGY [facility] [place] [address] Kash Tabares MD [address] [place] [address] Supervision of normal , second [...] Priority Date/Time Associated Diagnosis Comments PN US CERVICAL LENGTH W > 14 WEEKS Routine 03/24/2015 4:05 PM EST Supervision of normal , second trimester documented in this encounter Results * PN US CERVICAL LENGTH W > 14 WEEKS (03/24/2015 4:05 PM EST) Anatomical Region Laterality Modality Pelvis Ultrasound 03/24/2015 us Kash Tabares MD IMG ORDERABLES Final Result documented in this encounter Visit Diagnoses Diagnosis Supervision of normal , second trimester documented in this encounter Care Teams Respiratory Manager Relationship Specialty Start Date End Date Nehemias Barron MD [address] [place] [phone] PCP - General 12/01/10 Easton Thompson MD [address] [place] [address] [address] [place] [address] Physician Obstetrics & Gynecology 01/29/14 documented as of this encounter
--- OUTSIDE RECORDS SUMMARY | 2024-03-07 05:08 | XMS_ITS | Encounter Summary ---
Author Organization [place] [address] Care Team Providers Care Bone Char Puller Name Role Phone Nehemias Barron MD Primary Care Provider Easton Thompson MD Unavailable [phone] Reason for Visit * Reason Onset Date Comments ED Follow-Up Call 12/31/2014 ED Follow Up-T hreatened Encounter Details Date Type Department Care Team (Latest Contact Info) Description 12/31/2014 Patient Outreach [facility] [address] [place] [address] Kristi Ewing RN ED Follow-Up Call (ED Follow Up-Threatened ) Social History Tobacco Use Types Packs/Day [...] Telephone Encounter - Kristi Ewing RN - 12/31/2014 1:30 PM EDT Pt was seen in ED 12/29 for threatened . Unable to make contact with pt at this time. Left message with contact information on pt voicemail. Letter sent. documented in this encounter Plan of Treatment Not on file documented as of this encounter Visit Diagnoses Not on filedocumented in this encounter Care Teams Bone Char Puller Relationship Specialty Start Date End Date Nehemias Barron MD [address] [place] [address] PCP - General 12/01/10 Easton Thompson MD [address] [place] [address] [address] [place] [address] Physician Obstetrics & Gynecology 01/29/14 documented as of this encounter
--- OUTSIDE RECORDS SUMMARY | 2024-03-07 05:08 | XMS_ITS | Encounter Summary ---
Author Organization [place] [address] Care Team Providers Care Veneer Taper Name Role Phone Nehemias Barron MD Primary Care Provider [phone] Easton Thompson MD Unavailable [phone] Reason for Visit * Reason Comments Foot Injury reports 2 1/2 hour h istory of slip and fall on wet concrete, injury to left foot and ankle. cpta-tylenol Encounter Details Date Type Department Care Team (Late st Contact Info) Description 01/08/2015 12:13 AM EDT - 01/08/2015 1:27 AM EDT [facility] [address] [facility] [place] [address] Cinda Castellon MD [address] [place] [id number] Sprain of left ankle, unspecified ligament, initial encounter (Primary Dx); Foot pain, left Discharge Disposition: Home or Self Care Social [...] Sign Reading Time Taken Comments Blood Pressure 99/76 01/08/2015 12:21 AM EDT Pulse 95 01/08/2015 12:21 AM EDT Temperature 36.9 ??C (98.5 ??F) 01/08/2015 12:21 AM E DT Respiratory Rate 18 01/08/2015 12:21 AM EDT Oxygen Saturation 100% 01/08/2015 12:21 AM EDT Inhaled Oxygen Concentration - - Weight 58.1 kg (128 lb) 01/08/2015 12:21 AM EDT Height 165.1 cm (5' 5 ) 01/08/2015 12:21 AM EDT Body Mass Index 21.3 01/08/2015 12:21 AM EDT documented in this encounter Discharge Instructions * Attachments The following attachments cannot be sent through Care Everywhere. * ANKLE SPRAIN (JAMAICAN) * FOOT SPRAIN (JAMAICAN) documented in this encounter Medications at Time of Discharge acetaminophen Oral TabIndications:A bdominal pain in , antepartum Take 325 mg by mouth every 4 hours as needed for Pain. 6 malathion (OVIDE) 0.5 % Top LotionIndication [...] documented in this encounter ED Notes * Cinda Castellon MD - 01/08/2015 4:40 AM EDT CHIEF COMPLAINT Chief Complaint Patient presents with ??? Foot Injury reports 2 1/2 hour history of slip and fall on wet concrete, injury to left foot and ankle. cpta-tylenol HPI Bonny Olivares is a 24 y.o. female who presents presently 2-3 hours after slipping on wet concrete wearing flip-flops with a inversion injury to her left foot and ankle. She has pain diffusely at the ankle as well as the lateral foot. She is unable to bear weight Tylenol prior to arrival. She is approximately 10 weeks , did not hit her head, did not hit her abdomen. No belly pain. States the pain is bad when her foot is touched. REVIEW OF SYSTEMS See HPI for further details. Review of systems otherwise negative. PAST MEDICAL HISTORY Past Medical History Diagnosis Date ??? Knee [...] Motion sickness ??? Cancer (HCC) melanoma back FAMILY HISTORY Family History Problem Relation Age of Onset ??? Cancer Maternal Grandmother melanoma ??? Anesth Problems Neg Hx SOCIAL HISTORY History Social History ??? Marital Status: Single Spouse Name: N/A Number of Children: N/A ??? Years of Education: N/A Social History Main Topics ??? Smoking status: Current Every Day Smoker -- 1.00 packs/day for 8 years Types: Cigarettes ??? Smokeless tobacco: Never Used Comment: info refused ??? Alcohol Use: No ??? Drug Use: No ??? Sexual Activity: Partners: Male Other Topics Concern ??? None Social History Narrative SURGICAL HISTORY Past Surgical History Procedure Laterality Date ??? Appendectomy age 7 ??? Cervix biopsy 2010, 05/29/2013 ??? Skin cancer excision 06/2012 melanoma back ??? Leep N/A 06/27/2013 LOOP EXCISION PROCEDURE (LEEP); Surgeon: Sachin Castellanos MD; Location: [facility] MAIN OR; Service: Gynecology ??? Dilation and curettage of uterus N/A 02/20/2014 DILATION & CURETTAGE SUCTION EVACUATION FOR MISSCARRIAGE ; Surgeon: Kash Tabares MD; Location: [facility] MAIN OR; Service: Gynecology CURRENT MEDICATIONS Current Outpatient Rx Name Route Sig Dispense Refill ??? ondansetron (ZOFRAN-ODT) 4 mg Oral Tablet, Rapid Dissolve Oral Take 4 mg by mouth every 6 hours as needed for Nausea. ??? PNV #28-iron fumarate-folic ac 27-1 mg Oral Tablet Oral Take 1 Tab by mouth daily for 30 days. Indications: 30 Tab 10 May dispense any that is covered by pts i ... ??? acetaminophen Oral Tab Oral Take 325 mg by mouth every 4 hours as needed for Pain. ??? malathion (OVIDE) 0.5 % Top Lotion Topical Apply topically See Admin Instructions. See admin instructions. 1 Bottle 1 ALLERGIES Allergies Allergen Reactions ??? Sulfa (Sulfonamide Antibiotics) Swelling and Rash throat closes up, rash, and red everywhere PHYSICAL EXAM VITAL SIGNS: BP 99/76 mmHg Pulse 95 Temp(Src) 98.5 ??F (36.9 ??C) (Oral) Resp 18 Ht 5' 5 (1.651 m) Wt 128 lb (58.06 kg) BMI 21.30 kg/m2 SpO2 100% LMP 10/25/2014 (Exact Date) Constitutional: Well developed, Well nourished, No acute distress, Non-toxic appearance. HEENT normocephalic, atraumatic Cardiovascular: Normal heart rate, Normal rhythm, Thorax & Lungs: Normal breath sounds, No respiratory distress, Skin: Warm, Dry, No erythema, No rash. Extremities: Intact distal pulses, No cyanosis, No clubbing. Musculoskeletal: No pain at the left knee to palpation. No pain particularly at the head of the fibula. Patient does have diffuse ankle pain on the left, both at the medial and lateral malleolus withno obvious deformity or swelling noted. Also has pain at the base of the fifth metatarsal. Pulses are normal Neurologic: Alert & oriented x 3, Normal motor function, Normal sensory function, No focal deficits noted. RADIOLOGY/PROCEDURES Results for orders placed or performed during the hospital encounter of 01/08/15 XR ANKLE LEFT AP LATERAL AND OBLIQUE Narrative CLINICAL HISTORY: -FOOT INJURY. COMPARISON: None. TECHNIQUE: XR ANKLE LEFT AP LATERAL AND OBLIQUE on 01/08/2015 12:41 AM FINDINGS: The bone mineralization is normal. There is no fracture. The joint spaces are well maintained with normal alignment. There are no degenerative changes. The soft tissues are unremarkable. Impression IMPRESSION: No fracture or dislocation. XR FOOT LEFT AP LATERAL AND OBLIQUE Narrative CLINICAL HISTORY: -FOOT INJURY. COMPARISON: None. TECHNIQUE: XR FOOT LEFT AP LATERAL AND OBLIQUE on 01/08/2015 12:41 AM FINDINGS: The bone mineralization is normal. There is no fracture. The joint spaces are well maintained with normal alignment. There are no degenerative changes. The soft tissues are unremarkable. Impression IMPRESSION: No fracture or dislocation. COURSE & MEDICAL DECISION MAKING Pertinent Labs & Imaging studies reviewed. (See chart for details) Patient with an inversion injury tonight with foot and ankle pain. X-rays are negative. Plan to treat with Aircast, Tylenol, ice and elevation. States that she has crutches at home to utilize and be weightbearing as tolerated FINAL IMPRESSION 1. 1. Sprain of left ankle, unspecified ligament, initial encounter 2. Foot pain, left discharged home in stable condition This chart was completed using voice recognition technology and may contain unintended errors Cinda Castellon MD 01/08/15 0442 documented in this encounter Plan of Treatment Not on file documented as of this encounter Procedures Procedure Name Priority Date/Time Associated Diagnosis Comments XR FOOT LEFT AP LATERAL AND OBLIQUE RAMOS 01/08/2015 12:41 AM EDT XR ANKLE LEFT AP LATERAL AND OBLIQUE RAMOS 01/08/2015 12:41 AM EDT documented in this encounter Results * XR FOOT LEFT AP LATERAL AND OBLIQUE (01/08/2015 12:41 AM EDT) Anatomical Region Laterality Modality Foot Radiographic Jerri ging 01/08/2015 12:4 1 AM EDT Impressions 01/08/2015 12:49 AM EDT IMPRESSION: No fracture or dislocation. Narrative 01/08/2015 12:49 AM EDT CLINICAL HISTORY: -FOOT INJURY. COMPARISON: None. TECHNIQUE: XR FOOT LEFT AP LATERAL AND OBLIQUE on 01/08/2015 12:41 AM FINDINGS: The bone mineralization is normal. There is no fracture. The joint spaces are well maintained with normal alignment. There are no degenerative changes. The soft tissues are unremarkable. Procedure Note Viral Hurd MD - 01/08/2015 CLINICAL HISTORY: -FOOT INJURY. COMPARISON: None. TECHNIQUE: XR FOOT LEFT AP LATERAL AND OBLIQUE on 01/08/2015 12:41 AM FINDINGS: The bone mineralization is normal. There is no fracture. Thejoint spaces are well maintained with normal alignment. There are nodegenerative changes. The soft tissues are unremarkable. IMPRESSION: No fracture or dislocation. Cinda Castellon MD [facility] IMAGING ORDER MAURICE Final Result * XR ANKLE LEFT AP LATERAL AND OBLIQUE (01/08/2015 12:41 AM EDT) Anatomical Region Laterality Modality Ankle Radiographic Jerri ging 01/08/2015 12:4 1 AM EDT Impressions 01/08/2015 12:47 AM EDT IMPRESSION: No fracture or dislocation. Narrative 01/08/2015 12:47 AM EDT CLINICAL HISTORY: -FOOT INJURY. COMPARISON: None. TECHNIQUE: XR ANKLE LEFT AP LATERAL AND OBLIQUE on 01/08/2015 12:41 AM FINDINGS: The bone mineralization is normal. There is no fracture. The joint spaces are well maintained with normal alignment. There are no degenerative changes. The soft tissues are unremarkable. Procedure Note Viral Hurd MD - 01/08/2015 CLINICAL HISTORY: -FOOT INJURY. COMPARISON: None. TECHNIQUE: XR ANKLE LEFT AP LATERAL AND OBLIQUE on 01/08/2015 12:41 AM FINDINGS: The bone mineralization is normal. There is no fracture. Thejoint spaces are well maintained with normal alignment. There are nodegenerative changes. The soft tissues are unremarkable. IMPRESSION: No fracture or dislocation. Cinda Castellon MD [facility] IMAGING ORDER MAURICE Final Result documented in this encounter Visit Diagnoses Diagnosis Sprain of left ankle, unspecified ligament, initial encounter- Primary Foot pain, left Pain in limb documented in this encounter Historical Medications * This list may reflect changes made after this encounter. ondansetron (ZOFRAN-ODT) 4 mg Oral Tablet, Rapid Dissolve Take 4 mg by mouth every 6 hours as needed for Nausea. 07/21/2015 added in this encounter Orders Nursing Count Last Ordered Date First Orde red Date AIR CAST 1 01/08/2015 documented in this encounter Care Teams Veneer Taper Relationship Specialty Start Date End Date Nehemias Barron MD [address] [place] [address] PCP - General 12/01/10 Easton Thompson MD [address] [place] [address] [address] [place] [address] Physician Obstetrics & Gynecology 01/29/14 documented as of this encounter
--- OUTSIDE RECORDS SUMMARY | 2024-03-07 05:08 | XMS_ITS | Encounter Summary ---
Author Organization [place] [address] Care Team Providers Care Car Wiper Name Role Phone Nehemias Barron MD Primary Care Provider [phone] Easton Thompson MD Unavailable [phone] Encounter Details Date Type Department Care Team (Latest Contact Info) Description 01/03/2015 8:00 PM EDT - 01/03/2015 11:59 PM EDT Hospital Encounter [facility] LAB IVORY PROCESSING [facility] [place] [address] Encounter for supervision of other normal in first trimester Discharge Disposition: Home or [...] on file documented as of this encounter Medications at Time of Discharge acetaminophen Oral TabIndications:A bdominal pain in , antepartum Take 325 mg by mouth every 4 hours as needed for Pain. 6 malathion (OVIDE) 0.5 % Top LotionIndication s:Head lice Apply topically See Admin Instructions. See admin instructions. 1 Bottle 1 04/29/2014 6 documented as of this encounter Discharge Disposition Disposition Code Departure Means Destination Home or Self Care documented in this encounter Plan of Treatment Not on file documented as of this encounter Procedures Procedure Name Priority Date/Time Associated Diagnosis Comments URINE CULTURE (NO STAIN) Routine 01/03/2015 10:27 AM EDT Encounter for supervision of other normal in first trimester documented in this encounter Results * URINE CULTURE (01/03/2015 10:27 AM EDT) Final 8,000 cfu/ml Staphylococcus species 20,000 cfu/ml Gram positive rods suggestive of Lactobacilli No further workup [facility] Urine specimen (specimen) 01/03/2015 10:27 AM EDT 01/03/2015 9:03 PM EDT us Easton Thompson MD MICROBIOLOGY - GENERAL ORDER MAURICE Final Result [facility] [address] [place] [address] documented in this encounter Visit Diagnoses Diagnosis Encounter for supervision of other normal in first trimester documented in this encounter Care Teams Car Wiper Relationship Specialty Start Date End Date Nehemias Barron MD [address] [place] [address] PCP - General 12/01/10 Easton Thompson MD [address] [place] [address] [address] [place] [address] Physician Obstetrics & Gynecology 01/29/14 documented as of this encounter
--- OUTSIDE RECORDS SUMMARY | 2024-03-07 05:08 | XMS_ITS | Encounter Summary ---
Author Organization [place] [address] Care Team Providers Care Dental Technician Apprentice Name Role Phone Nehemias Barron MD Primary Care Provider [phone] Easton Thompson MD Unavailable Reason for Referral * Ultrasound (Routine) - Closed Specialty Diagnoses / Procedures Referred By Contac t Referred To Contact Obstetrics Diagnoses Supervision of normal , second trimester Procedures PN US OB FOLLOW UP TRANSABDOMINAL APPROACH EACH GESTATION PN US OB LIMITED 1 + FETUSES Kash Tabares MD [address] [place] [address] Phone: tel: fax: [facility] Maternal Center [facility] [address] [place] [address] Phone: tel: fax: Referral ID Status Reason Start Date Expiration Date Visits Re quested Visits Authorized [id number] Closed 04/14/2015 04/13/2016 1 1 Encounter Details Date Type Department Care Team (Late st Contact Info) Description 03/28/2015 Orders Only [facility] [address] [place] [address] Kash Tabares MD [address] [facility] [place] [address] Supervision of normal , second [...] Neel Donovan RN documented in this encounter Progress Notes * Bri Bennett MA - 03/28/2015 3:04 PM EST [address] is not required for [facility], which is [facility]'s Ins. You can zenia a repeat US with your appropriate codes and as long as medically necessary they will pay for it. Ana bar documented in this encounter Plan of Treatment Not on file documented as of this encounter Results * PN US OB FOLLOW UP TRANSABDOMINAL APPROACH EACH GESTATION (04/15/2015 5:01 PM EST) Anatomical Region Laterality Modality Pelvis Ultrasound 04/15/2015 us Kash Tabares MD IMG ORDERABLES Final Result documented in this encounter Visit Diagnoses Diagnosis Supervision of normal , second trimester- Primary documented in this encounter Care Teams Dental Technician Apprentice Relationship Specialty Start Date End Date Nehemias Barron MD [address] [place] [address] PCP - General 12/01/10 Easton Thompson MD [address] [place] [address] [address] [place] [address] Physician Obstetrics & Gynecology 01/29/14 documented as of this encounter
--- OUTSIDE RECORDS SUMMARY | 2024-03-07 05:08 | XMS_ITS | Encounter Summary ---
Author Organization [place] [address] Care Team Providers Care Target Network Analyst Name Role Phone Nehemias Barron MD Primary Care Provider [phone] Easton Thompson MD Unavailable [phone] Encounter Details Date Type Department Care Team (Latest Contact Info) Description 01/15/2015 2:25 PM EDT - 01/15/2015 11:59 PM EDT Hospital Encounter [facility] [address] [facility] [place] [address] Encounter for supervision of other normal in [...] 6 hours as needed for Nausea. 6 PNV #28-iron fumarate-folic ac 27-1 mg Oral TabletIndication s: Take 1 Tab by mouth daily for 30 days. Indications: 30 Tab 10 01/15/2015 5 documented as of this encounter Discharge Disposition Disposition Code Departure Means Destination Home or Self Care documented in this encounter Plan of Treatment Scheduled Orders Name Type Priority Associated Diagnoses Orde r Schedule OP VENIPUNCTURE CHARGE Lab Timed Encounter for supervision of other normal in first trimester One Time for 1 Occurrences starting 01/15/2015 until 01/15/2015 documented as of this encounter Procedures Procedure Name Priority Date/Time Associated Diagnosis Comments HIV AG/AB Routine 01/15/2015 2:26 PM EDT Encounter for supervision of other normal in first trimester SYPHILIS SCREEN WITH REFLEX RPR QUANT Routine 01/15/2015 2:26 PM EDT Encounter for supervision of other normal in first trimester RUBELLA ANTIBODY IGG Routine 01/15/2015 2:26 PM EDT Encounter for supervision of other normal in first trimester HEPATITIS B SURFACE ANTIGEN Routine 01/15/2015 2:26 PM EDT Encounter for supervision of other normal in first trimester ANTIBODY SCREEN IGG Routine 01/15/2015 2 :26 PM EDT Encounter for supervision of other normal in first trimester documented in this encounter Results * SYPHILIS SCREEN WITH REFLEX RPR QUANT (01/15/2015 2:26 PM EDT) TREP(SYPHILIS) AB INDEX <0.10 <=1.09 Index Value [facility] Comment: <0.90 - Negative 0.90 to 1.00 - Equivocal ?? Patients with equivocal results should be retested in 7-14 days. >=1.10 - Positive NOTE: ??All equivocal and positive results will be reflexed to Quantitative Non-Treponemal(RPR)test. Blood specimen (specimen) 01/15/2015 2:26 PM EDT 01/15/2015 6:58 PM EDT Easton Thompson MD CHEMISTRY ORDERABLES Final R esult Performing Organization Address [facility] de Phone Number [facility] [address] [place] [address] * RUBELLA ANTIBODY IGG (01/15/2015 2:26 PM EDT) Rubella IgG 5.880 Index Value [facility] Comment: < 0.90 - Negative No significant level of detectable rubella IgG Antibody (Presumed Non-Immune) ? 0.90 to 0.99 - Equivocal ?? Repeat testing in 10-14 days is recommended > or = 1.00 - Positive ?? Previous exposure or vaccination (Immune) Note: ??The magnitude of the measured result is not indicative of the amount of antibody present. Blood specimen (specimen) UPPER LIMB STRUCTURE / Unknown 01/15/2015 2:26 PM EDT 01/15/2015 6:58 PM EDT Easton Thompson MD IMMUNOLOGY ORDERABLES Final Result Performing Organization Address [facility] de Phone Number [facility] [address] [place] [address] * HIV AG/AB (01/15/2015 2:26 PM EDT) Pathologist [facility] HIV Ag/AB Non-Reactiv e [facility] Blood specimen (specimen) 01/15/2015 2:26 PM EDT 01/15/2015 6:58 PM EDT Easton Thompson MD IMMUNOLOGY ORDERABLES Final Result Performing Organization Address [facility] Co de Phone Number [facility] [address] [place] [address] * HEPATITIS B SURFACE ANTIGEN (01/15/2015 2:26 PM EDT) Pathologist [facility] Hep Bs Ag Negative Negative [facility] Blood specimen (specimen) UPPER LIMB STRUCTURE / Unknown 01/15/2015 2:26 PM EDT 01/15/2015 6:58 PM EDT Easton Thompson MD CHEMISTRY ORDERABLES Final R esult Performing Organization Address City/[facility] Co de Phone Number [facility] [address] [place] [address] * ANTIBODY SCREEN IGG (01/15/2015 2:26 PM EDT) ABSC IgG Int Negative [facility] Blood specimen (specimen) UPPER LIMB STRUCTURE / Unknown 01/15/2015 2:26 PM EDT 01/15/2015 6:58 PM EDT Easton Thompson MD BLOOD BANK ORDERABLES Final Result Performing Organization Address [facility] Co de Phone Number [facility] [address] [place] [address] documented in this encounter Visit Diagnoses Diagnosis Encounter for supervision of other normal in first trimester documented in this encounter Care Teams Target Network Analyst Relationship Specialty Start Date End Date Nehemias Barron MD [address] [place] [address] PCP - General 12/01/10 Easton Thompson MD [address] [place] [address] [address] [place] [address] Physician Obstetrics & Gynecology 01/29/14 documented as of this encounter
--- OUTSIDE RECORDS SUMMARY | 2024-03-07 05:08 | XMS_ITS | Encounter Summary ---
Author Organization [place] [address] Care Team Providers Care Nsh Teacher Name Role Phone Nehemias Barron MD Primary Care Provider [phone] Easton Thompson MD Unavailable [phone] Reason for Visit * Reason Onset Date Comments Results 03/25/2015 Visit Follow Up 03/25/2015 Encounter Details Date Type Department Care Team (Late Contact Info) Description 03/25/2015 Telephone [facility] [address] [place] [address] Kash Tabares MD [address] [facility] [place] [address] Results; Visit Follow Up Social [...] Assessment Author No 03/12/2015 1:47 AM Neel Donvoan RN * Because of a physical, mental [...] Neel Donovan RN documented in this encounter Miscellaneous Notes * Telephone Encounter - Prabha Sheikh MA - 03/25/2015 2:19 PM EST Pt aware documented in this encounter Plan of Treatment Not on file documented as of this encounter Visit Diagnoses Not on filedocumented in this encounter Care Teams Nsh Teacher Relationship Specialty Start Date End Date Nehemias Barron MD [address] [place] [address] PCP - General 12/01/10 Easton Thompson MD [address] [place] [address] [address] [place] [address] Physician Obstetrics & Gynecology 01/29/14 documented as of this encounter
--- OUTSIDE RECORDS SUMMARY | 2024-03-07 05:08 | XMS_ITS | Encounter Summary ---
Author Organization [place] [address] Care Team Providers Care Calculus Tutor Name Role Phone Nehemias Barron MD Primary Care Provider Easton Thompson MD Unavailable [phone] Reason for Visit * Reason Onset Date Comments Heartburn 05/13/2015 Encounter Details Date Type Department Care Team (Late Contact Info) Description 05/13/2015 Telephone [facility] [address] [place] [address] Kash Tabares MD [address] [facility] [address] [place] [address] Heartburn Social History Tobacco Use Types Packs/Day Years [...] Encounter - Ciera Dawson RMA - 05/14/2015 2:34 PM EST Pt aware * Telephone Encounter - Kash Tabares MD - 05/13/2015 5:08 PM EST Would recommend Pepcid 10 mg (generic Famotidine 10 mg is fine) in am and pm prn for the symptoms. In addition would add a PPI; typically advise Prevacid OTC (is also available in generic) daily fromhere on. Prevacid is a maintenance med, not to be taken prn, would again advise just take daily. Ifstill no improvement would then move on to a prescription PPI, typically Protonix is covered, but wo uld try the OTC Prevacid first, thanks. * Telephone Encounter - Niki Fraser ABR-OE - 05/13/2015 2:42 PM EST Est [facility] patient called stating that she has indigestion and wants to know what she can take. I advised that pt that she can take any of the OTC medications listed on the paper. I also read off the medications to the pt. The patient states she has already tried all of the following, Maalox, Mylanta, Tums, Tagament, Zantac, Pepcid AC. Pt states that her heartburn is so bad that her throat is starting to bleed. Advised pt that she should come into office to be evaluated. Pt states that is hard to do because of her work schedule. Pt went ahead and made an appt for 05/20/2015. In the mean time do you have any recommendations for the pt? documented in this encounter Plan of Treatment Not on file documented as of this encounter Visit Diagnoses Not on filedocumented in this encounter Care Teams Calculus Tutor Relationship Specialty Start Date End Date Nehemias Barron MD [address] [place] [address] PCP - General 12/01/10 Easton Thompson MD [address] [place] [address] [address] [place] [address] Physician Obstetrics & Gynecology 01/29/14 documented as of this encounter
--- OUTSIDE RECORDS SUMMARY | 2024-03-07 05:08 | XMS_ITS | Encounter Summary ---
Author [place] [address] Care Team Providers Care Metal Polisher Name Role Phone Nehemias Barron MD Primary Care Provider [phone] Easton Thompson MD Unavailable [phone] Encounter Details Date Type Department Care Team (Latest Contact Info) Description 12/30/2014 8:13 PM EDT - 12/30/2014 11:59 PM EDT Hospital Encounter EDG LAB IVORY PROCESSING [facility] [place] [address] Abdominal pain in , antepartum Discharge Disposition: Home or Self [...] Priority Date/Time Associated Diagnosis Comments DRUGS OF ABUSE WITH REFLEX TO CONFIRMATION, URINE Routine 12/30/2014 11:07 AM EDT Abdominal pain in , antepartum URINE CULTURE (NO STAIN) Routine 12/30/2014 11:07 AM EDT Abdominal pain in , antepartum documented in this encounter Results * URINE CULTURE (12/30/2014 11:07 AM EDT) Final Three or more bacterial species isolated from urine indicating superficial or fecal contamination Recollect if clinically indicated [facility] Urine specimen (specimen) 12/30/2014 11:07 AM EDT 12/30/2014 10:29 PM EDT us Kash Tabares MD MICROBIOLOGY - GENERAL ORDERABL ES Final Result [facility] [address] [place] [address] * DRUGS OF ABUSE WITH REFLEX TO CONFIRMATION, URINE (12/30/2014 11:07 AM EDT) Cannabinoid Metabolite Absent 50 ng/mL [facility] Benzodiazepines Absent 200 ng/mL [facility] Cocaine Metabolite Absent 150 ng/mL [facility] Opiate 300 Absent 300 ng/mL [facility] Barbiturates Absent 200 ng/mL [facility] Amphetamines Absent 500 ng/mL [facility] Phencyclidine Absent 25 ng/mL [facility] Methadone and Metabolite Absent 300 ng/mL [facility] Oxycodone Lvl Absent 100 ng/mL [facility] 6 AM (Heroin) Absent 10 ng/mL [facility] Buprenorphine Absent 5 ng/mL [facility] Creatinine Urn 207.0 mg/dL [facility] Comment: Greater than 20: Consistent with valid sample Greater than 2 but less than 20: Possible dilution Less than 2: Questionable valid sample Drug Screen Reflex Note These drug classes have been screened by immunoassay and are for medical purposes only. ??Results should not be used for non-medical purposes. These results are only valid for urine specimens. Any contamination with vaginal pool/amniotic fluid could cause erroneous results. [facility] Urine specimen (specimen) 12/30/2014 11:07 AM EDT 12/30/2014 9:26 PM EDT us Kash Tabares MD URINE ORDERABLES Final Result [facility] [address] [place] [address] documented in this encounter Visit Diagnoses Diagnosis Abdominal pain in , antepartum Other specified complication, antepartum documented in this encounter Care Teams Metal Polisher Relationship Specialty Start Date End Date Nehemias Barron MD [address] [place] [id number] PCP - General 12/01/10 Easton Thompson MD [address] [place] [address] [address] [place] [address] Physician Obstetrics & Gynecology 01/29/14 documented as of this encounter
--- OUTSIDE RECORDS SUMMARY | 2024-03-07 05:08 | XMS_ITS | Encounter Summary ---
Author [place] [address] Care Team Providers Care Wireless Technician Name Role Phone Nehemias Barron MD Primary Care Provider Easton Thompson MD Unavailable Reason for Visit * Ultrasound (Routine) - Closed Specialty Diagnoses / Procedures Referred By Contac t Referred To Contact Obstetrics Diagnoses Abdominal pain in , antepartum Threatened in first trimester Procedures PN US < 14 WK W TRANSVAGINAL PN US OB < 14 WEEKS SINGLE OR FIRST GESTATION Kash Tabares MD [address] [facility] [address] [place] [address] Phone: tel: fax: [facility] [address] [place] [address] Phone: tel: fax: Referral ID Status Reason Start Date Expiration Date Visits Re quested Visits Authorized [id number] Closed 01/02/2015 01/02/2016 1 1 Encounter Details Date Type Department Care Team (Latest Contact Info) Description 01/02/2015 9:15 AM EDT - 01/02/2015 11:59 PM EDT Hospital Encounter EDG PERINATOLOGY [facility] [place] [address] Kash Tabares MD [address] [place] [address] Abdominal pain in , antepartum; Threatened in first trimester Discharge Disposition: Home or [...] US < 14 WK W TRANSVAGINAL Routine 01/02/2015 11:10 AM EDT Abdominal pain in , antepartum Threatened in first trimester documented in this encounter Results * PN US < 14 WK W TRANSVAGINAL (01/02/2015 11:10 AM EDT) Anatomical Region Laterality Modality Pelvis Ultrasound 01/02/2015 us Kash Tabares MD IMG ORDERABLES Final Result documented in this encounter Visit Diagnoses Diagnosis Abdominal pain in , antepartum Other specified complication, antepartum Threatened in first trimester Threatened , unspecified as to episode of care documented in this encounter Care Teams Wireless Technician Relationship Specialty Start Date End Date Nehemias Barron MD [address] [place] [address] PCP - General 12/01/10 Easton Thompson MD [address] [place] [address] Physician Obstetrics & Gynecology 01/29/14 documented as of this encounter
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
--- OUTSIDE RECORDS SUMMARY | 2024-03-07 05:08 | XMS_ITS | Encounter Summary ---
Author Organization [place] [address] Care Team Providers Care Associate Dean Name Role Phone Nehemias Barron MD Primary Care Provider Easton Thompson MD Unavailable [phone] Reason for Visit * Reason Comments Vaginal Bleeding Pt c/o lower abdomin al pain with spotting onset 2 days ago. Cpta: none pt is <15 wks Encounter Details Date Type Department Care Team (Late st Contact Info) Description 02/01/2015 9:08 PM EDT - 02/02/2015 12:06 AM EDT Emergency [place] [facility] [place] [address] Edmund Blackwell MD [address] [place] [phone] Abdominal pain in (Primary Dx) Discharge Disposition: Home or Self [...] Sign Reading Time Taken Comments Blood Pressure 99/63 02/01/2015 11:24 PM EDT Pulse 78 02/01/2015 11:24 PM EDT Temperature 37.3 ??C (99.1 ??F) 02/01/2015 9:11 PM ED T Respiratory Rate 12 02/01/2015 11:24 PM EDT Oxygen Saturation 100% 02/01/2015 11:24 PM EDT Inhaled Oxygen Concentration - - Weight - - Height - - Body Mass Index - - documented in this encounter Discharge Instructions * Discharge Instructions* Monica Maldonado APRN - 02/01/2015 11:51 PM EDT Please call Dr. Tabares's office Tuesday to schedule an appointment for further evaluation Return to the ER for any worsening pain, bleeding or other concerning symptoms Pelvic rest until cleared by Dr. Tabares * Attachments The following attachments cannot be sent through Care Everywhere. * PELVIC REST (GRENADIAN) documented in this encounter Medications at Time [...] Code Departure Means Destination Home or Self Prison documented in this encounter ED Notes * Monica Maldonado APRN - 02/01/2015 10:01 PM EDT CHIEF COMPLAINT Chief Complaint Patient presents with ??? Vaginal Bleeding Pt c/o lower abdominal pain with spotting onset 2 days ago. Cpta: none pt is <15 wks HPI Bonny Olivares is a 24 y.o. female who presents to the emergency Department with complaints of sharplower abdominal pain that started 2 days ago and was intermittent in nature and became constant andworse today. She also reports for the past 2 days she has had some vaginal spotting. She states that she has noticed pink tissue after voiding. She denies any passage of blood clots. Patient is approximately 13 weeks . This is the patient's third . She carried her first to term and her second was a miscarriage at 11 weeks. She has had an ultrasound at 9 weeks which showed a positive intrauterine . Her next appointment with her COVERAGE SPECIALIST is February. Patient denies any URI complaints, chest pain, shortness of breath, nausea, vomiting, diarrhea or urinary complaints. He denies taking any medication for pain prior to arrival. REVIEW OF SYSTEMS See HPI for further [...] PROCEDURE (LEEP); Surgeon: Sachin Castellanos MD; Location: [facility] OR; Service: Gynecology ??? Dilation and curettage of uterus N/A 02/20/2014 DILATION & CURETTAGE SUCTION EVACUATION FOR MISSCARRIAGE ; Surgeon: Kash Tabares MD; Location: [facility] MAIN OR; Service: Gynecology CURRENT MEDICATIONS Current Outpatient Rx Name Route Sig Dispense Refill ??? PNV #28-iron fumarate-folic ac 27-1 mg Oral Tablet Oral Take 1 Tab by mouth daily for 30 days. Indications: 30 Tab 10 May dispense any that is covered by pts i ... ??? doxylamine-pyridoxine (DICLEGIS) 10-10 mg Oral Tablet, Delayed Release (E.C.) Oral Take by mouth daily. ??? ondansetron (ZOFRAN-ODT) 4 mg Oral Tablet, Rapid Dissolve Oral Take 4 mg by mouth every 6 hours as needed for Nausea. ??? acetaminophen Oral Tab Oral Take 325 mg by mouth every 4 hours as needed for Pain. ??? malathion (OVIDE) 0.5 % Top Lotion Topical Apply topically See Admin Instructions. See admin instructions. 1 Bottle 1 ALLERGIES Allergies Allergen Reactions ??? Sulfa (Sulfonamide Antibiotics) Swelling and Rash throat closes up, rash, and red everywhere PHYSICAL EXAM VITAL SIGNS: ED Triage Vitals Temp 02/01/15 2111 99.1 ??F (37.3 ??C) Heart Rate 02/01/152110 99 Resp 02/01/152110 18 BP 02/01/152110 104/58 mmHg SpO2 02/01/152110 100 % Height -- Weight -- Constitutional: Well developed, Well nourished, No acute distress, Non-toxic appearance. HENT: Normocephalic, Atraumatic, Bilateral external ears normal, Oropharynx moist, No oral exudates, Nose normal. Eyes: PERRL, EOMI, Conjunctiva normal, No discharge. Neck: Normal range of motion, Supple. Cardiovascular: Normal heart rate, Normal rhythm, No murmurs. Thorax & Lungs: Normal breath sounds, No respiratory distress. Abdomen: Right-sided suprapubic abdominal tenderness, Bowel sounds normal, Soft, No masses, No pulsatile masses. No rebound or organomegly. FHT's 180 Pelvic Exam: Welt Insole Channeler present. Normal external genitalia with Normal vulva. Normal vagina with no polyps or lesions. Clear vaginal discharge. No blood in the vaginal vault. Normal cervix with normalmucosa. Cervical os closed. No CMT. Right adnexal tenderness. No masses palpated. Skin: Warm, Dry, No erythema, No rash. Back: No tenderness, No CVA tenderness. Neurologic: Alert & oriented x 3, Normal motor function, Normal sensory function, No focal deficits noted. Cranial nerves intact. RADIOLOGY/PROCEDURES Results for orders placed or performed during the hospital encounter of 02/01/15 HUMAN CHORIONIC GONADOTROPIN QUANTITATIVE Result Value Ref Range hCG Quant 630996 mIU/mL URINALYSIS Result Value Ref Range UA Color Yellow UA Appear Cloudy (A) Clear UA Glucose Negative Negative UA Ketones Negative Negative UA Blood Negative Negative UA pH 6.0 4.8 - 8.0 UA Protein Negative Negative UA Urobilinogen 2 mg/dl (A) <=1 mg/dl UA Nitrite Negative Negative UA Leuk Est Negative Negative UA Spec Grav 1.018 1.001 - 1.035 UA WBC 1 0 - 4 /HPF UA RBC 1 0 - 3 /HPF UA Squam Epi 3+ UA Bacteria Trace (A) COURSE & MEDICAL DECISION MAKING Pertinent Labs & Imaging studies reviewed. (See chart for details) Filed Vitals: 02/01/15211002/01/15 2324 BP: 104/58 99/63 Pulse: 99 78 Temp: 99.1 ??F (37.3 ??C) TempSrc: Oral Resp: 18 12 SpO2: 100% 100% The patient presents to the emergency Department with the above complaints. She appears nontoxic and in no acute distress. On examination she does have some right-sided suprapubic tenderness. A pelvic examination was performed and there is no blood present in the vaginal vault. She does have some right sided adnexal tenderness. Cervical Os closed. FHT's 180. Hcg quant 189,000 compared to 113,004 weeks ago. I spoke with Dr. Tabares regarding this patient who agrees to follow up with the patient in the office in 2 days. Pelvic rest instructions were provided to the patient. She was instructed to return for any worsening pain, bleeding or other concerning symptoms. Patient discharged home in stable condition. FINAL IMPRESSION 1. Abdominal pain in Discharged home in stable condition. Electronically signed by: Monica Maldonado APRN, 02/01/2015, 10:01 PM This chart was completed using voice recognition technology and may contain unintended errors Monica Maldonado APRN 02/01/15 [id number] Cosigned by Edmund Blackwell MD at 02/02/2015 1:02 PM EDT Associated attestation - Edmund Blackwell MD - 02/02/2015 1:02 PM EDT I have reviewed the chief complaint and history of present illness and review of systems as well asthe past medical/social/family history sections for this patient. I have examined this patient, andparticipated in the care of this patient. I have reviewed the pertinent clinical information including physical exam, labs, radiographic studies and the plan. This patient was seen in coordination with PA/TRANSITION SOCIAL WORKER. This chart was completed using voice recognition technology and may contain unintended errors * Maren Hill - 02/01/2015 9:27 PM EDT Labs drawn documented in this encounter Plan of Treatment Not on file documented as of this encounter Procedures Procedure Name Priority Date/Time Associated Diagnosis Comments URINALYSIS STAT 02/01/2015 9:25 PM EDT HUMAN CHORIONIC GONADOTROPIN QUANTITATIVE STAT 02/01/2015 9:24 PM EDT documented in this encounter Results * (ABNORMAL) URINALYSIS (02/01/2015 9:25 PM EDT) UA Color Yellow [facility] UA Appear Cloudy(A) Clear [facility] UA Glucose Negative Negative [facility] UA Ketones Negative Negative [facility] UA Blood Negative Negative [facility] UA pH 6.0 4.8 - 8.0 [facility] Comment:Reference range kp d for random specimens only. UA Protein Negative Negative [facility] UA Urobilinogen 2 mg/dl(A) <=1 mg/dl [facility] UA Nitrite Negative Negative [facility] UA Leuk Est Negative Negative [facility] UA Spec Grav 1.018 1.001 - 1.035 [facility] Comment:Reference range kp d for random specimens only. UA WBC 1 0 - 4 /HPF [facility] UA RBC 1 0 - 3 /HPF [facility] UA Squam Epi 3+ [facility] UA Bacteria Trace(A) [facility] Urine specimen (specimen) URINE SPECIMEN COLLECTION, CLEAN CATCH / Unknown 02/01/2015 9:25 PM EDT 02/01/2015 9:41 PM EDT Edmund Blackwell MD URINE ORDERABLES Final Result [facility] [address] [place] [address] * HUMAN CHORIONIC GONADOTROPIN QUANTITATIVE (02/01/2015 9:24 PM EDT) hCG Quant [id number] mIU/mL [facility] Blood specimen (specimen) UPPER LIMB STRUCTURE / Unknown 02/01/2015 9:24 PM EDT 02/01/2015 10:31 PM EDT us Edmund Blackwell MD CHEMISTRY ORDERABLES Final Re sult [facility] [address] [place] [address] documented in this encounter Visit Diagnoses Diagnosis Abdominal pain in - Primary Other specified complication of , unspecified as to episode of care documented in this encounter Administered Medications Inactive Administered Medications - up to 1 most recent administrations Medication Order MAR Action Action Date Dose Rate Site acetaminophen (TYLENOL) tablet 650 mg 650 mg, Oral, ONCE, 1 dose, On 02/01/15 at 2215, Maximum adult dose of acetaminophen is 4000 mg from all sources in 24 hours. Given 02/01/2015 10:19 PM EDT 650 mg documented in this encounter Active and Recently Administered Medications Times are shown in EDT. Scheduled Medication Order 01/31/2015 02/01/2015 02/02/2015 acetaminophen (TYLENOL) tablet 650 mg (COMPLETED) 650 mg, Oral, ONCE, 1 dose, On 02/01/15 at 2215, Maximum adult dose of acetaminophen is 4000 mg from all sources in 24 hours. 2219 (Given - Provider: Clement Christiansen RN) documented in this encounter Orders Nursing Count Last Ordered Date First Orde red Date ASSESS HEART TONES 1 02/01/2015 SET UP FOR PELVIC EXAM 1 02/01/2015 documented in this encounter Care Teams Associate Dean Relationship Specialty Start Date End Date Nehemias Barron MD [address] [place] [phone] PCP - General 12/01/10 Easton Thompson MD [address] [place] [address] [address] [place] [address] Physician Obstetrics & Gynecology 01/29/14 documented as of this encounter
--- OUTSIDE RECORDS SUMMARY | 2024-03-07 05:08 | XMS_ITS | Encounter Summary ---
Author Organization [place] [address] Care Team Providers Care Subsurface Augmentee Elint Operator Name Role Phone Nehemias Barron MD Primary Care Provider [phone] Easton Thompson MD Unavailable [phone] Reason for Visit * Reason Comments Routine Visit Encounter Details Date Type Department Care Team (Latest Contact Info) Description 02/10/2015 11:20 AM EST ROUTINE FOLLOW UP OB VISIT [facility] [address] [place] [address] Kash Tabares MD [address] [facility] [address] [place] [address] Supervision of normal , second trimester (Primary Dx); Dizziness; Weight loss Social History Tobacco Use Types Packs/Day Years [...] Reading Time Taken Comments Blood Pressure 102/62 02/10/2015 11:40 AM EST Pulse - - Temperature - - Respiratory Rate - - Oxygen Saturation - - Inhaled Oxygen Concentration - - Weight 54.9 kg (121 lb) 02/10/2015 11:40 AM EST Height 167.6 cm (5' 6 ) 02/10/2015 11:40 AM EST Body Mass Index 19.53 02/10/2015 11:40 AM EST documented in this encounter Progress Notes * Kash Tabares MD - 02/10/2015 12:44 PM EST 14+3, doing a bit better with n/v, feels is eating better but still with symptoms of dizzy / LH often, wt loss noted pt states same exact way prev preg went, advised flu shot, desires quad / ? If CF done prior preg will see if anything received, precautions reviewed, RTO 2 wks , will check CBC / TSH with next labs * Niki Fraser ABR-OE - 02/10/2015 12:02 PM EST Results for orders placed or performed in visit on 02/10/15 POCT URINALYSIS DIPSTICK Result Value Ref Range Color, UA yellow Clear, Yellow, [place], Rust Clarity, UA clear Clear, Cloudy Glucose, UA neg g/dl% Bilirubin, UA neg Pos/Neg Ketones, UA neg Pos/Neg Spec Grav, UA 1.030 1.001 - 1.035 g/dl Blood, UA neg Pos/Neg pH, UA 6.0 5.0 - 8 Protein, UA 1+ Pos/Neg Urobilinogen, UA 0.2 0.2 - 1.0 mg/dL Leukocytes, UA neg Pos/Neg Nitrite, UA neg Pos/Neg UA Appear POC NA Lot Number [id number] Expiration Date 01/2016 SeriAl # NA * Prabha Sheikh MA - 02/10/2015 11:47 AM EST Pt states she has been getting light headed and dizziness * Prabha Sheikh MA - 02/10/2015 11:47 AM EST Edema No Contractions No Loss of Fluid No Bleeding No documented in this encounter Miscellaneous Notes * Patient Instructions - Prabha Sheikh MA - 02/10/2015 11:41 AM EST You may be contacted by mail or e-mail to participate in a patient satisfaction survey regarding your office visit today. We value your opinion and depend on your feedback to make improvements and provide you with the best possible experience while receiving high quality medical treatment. Your time in completing this survey is greatly appreciated. If we did not meet your needs today please call the office and ask to speak to our medical officer. Second Trimester of The second trimester is from week 13 through week 28, months 4 through 6. The second trimester is often a time when you feel your best. Your body has also adjusted to being , and you begin tofeel better physically. Usually, morning sickness has lessened or quit completely, you may have more energy, and you may have an increase in appetite. The second trimester is also a time when the fetus is growing rapidly. At the end of the sixth month, the fetus is about 9 inches long and weighs about 1?? pounds. You will likely begin to feel the baby move (quickening) between 18 and 20 weeks of the . BODY CHANGES Your body goes through many changes during . The changes vary from woman to woman. ?? Your weight will continue to increase. You will notice your lower abdomen bulging out. ?? You may begin to get stretch henao on your hips, abdomen, and breasts. ?? You may develop headaches that can be relieved by medicines approved by your health care provider. ?? You may urinate more often because the fetus is pressing on your bladder. ?? You may develop or continue to have heartburn as a result of your . ?? You may develop constipation because certain hormones are causing the muscles that push waste through your intestines to slow down. ?? You may develop hemorrhoids or swollen, bulging veins (varicose veins). ?? You may have back pain because of the weight gain and hormones relaxing your joints between the bones in your pelvis and as a result of a shift in weight and the muscles that support your balance. ?? Your breasts will continue to grow and be tender. ?? Your gums may bleed and may be sensitive to brushing and flossing. ?? Dark spots or blotches (chloasma, mask of ) may develop on your face. This will likely fade after the baby is born. ?? A dark line from your belly button to the pubic area (linea nigra) may appear. This will likely fade after the baby is born. ?? You may have changes in your hair. These can include thickening of your hair, rapid growth, and changes in texture. Some women also have hair loss during or after , or hair that feels dryor thin. Your hair will most likely return to normal after your baby is born. WHAT TO EXPECT AT YOUR VISITS During a routine visit: ?? You will be weighed to make sure you and the fetus are growing normally. ?? Your blood pressure will be taken. ?? Your abdomen will be measured to track your baby's growth. ?? The heartbeat will be listened to. ?? Any test results from the previous visit will be discussed. Your health care provider may ask you: ?? How you are feeling. ?? If you are feeling the baby move. ?? If you have had any abnormal symptoms, such as leaking fluid, bleeding, severe headaches, or abdominal cramping. ?? If you have any questions. Other tests that may be performed during your second trimester include: ?? Blood tests that check for: ?? Low iron levels (anemia). ?? Gestational diabetes (between 24 and 28 weeks). ?? Rh antibodies. ?? Urine tests to check for infections, diabetes, or protein in the urine. ?? An ultrasound to confirm the proper growth and development of the baby. ?? An amniocentesis to check for possible genetic problems. ?? screens for spina bifida and Down syndrome. HOME CARE INSTRUCTIONS ?? Avoid all smoking, herbs, alcohol, and unprescribed drugs. These chemicals affect the formation and growth of the baby. ?? Follow your health care provider's instructions regarding medicine use. There are medicines thatare either safe or unsafe to take during . ?? Exercise only as directed by your health care provider. Experiencing uterine cramps is a good sign to stop exercising. ?? Continue to eat regular, healthy meals. ?? Wear a good support bra for breast tenderness. ?? Do not use hot tubs, steam rooms, or saunas. ?? Wear your seat belt at all times when driving. ?? Avoid raw meat, uncooked cheese, cat litter boxes, and soil used by cats. These carry germs thatcan cause defects in the baby. ?? Take your vitamins. ?? Try taking a stool softener (if your health care provider approves) if you develop constipation.Eat more high-fiber foods, such as fresh vegetables or fruit and whole grains. Drink plenty of fluids to keep your urine clear or pale yellow. ?? Take warm sitz baths to soothe any pain or discomfort caused by hemorrhoids. Use hemorrhoid cream if your health care provider approves. ?? If you develop varicose veins, wear support hose. Elevate your feet for 15 minutes, 3-4 times a day. Limit salt in your diet. ?? Avoid heavy lifting, wear low heel shoes, and practice good posture. ?? Rest with your legs elevated if you have leg cramps or low back pain. ?? Visit your dentist if you have not gone yet during your . Use a soft toothbrush to brush your teeth and be gentle when you floss. ?? A sexual relationship may be continued unless your health care provider directs you otherwise. ?? Continue to go to all your visits as directed by your health care provider. SEEK MEDICAL CARE IF: ?? You have dizziness. ?? You have mild pelvic cramps, pelvic pressure, or nagging pain in the abdominal area. ?? You have persistent nausea, vomiting, or diarrhea. ?? You have a bad smelling vaginal discharge. ?? You have pain with urination. SEEK IMMEDIATE MEDICAL CARE IF: ?? You have a fever. ?? You are leaking fluid from your vagina. ?? You have spotting or bleeding from your vagina. ?? You have severe abdominal cramping or pain. ?? You have rapid weight gain or loss. ?? You have shortness of breath with chest pain. ?? You notice sudden or extreme swelling of your face, hands, ankles, feet, or legs. ?? You have not felt your baby move in over an hour. ?? You have severe headaches that do not go away with medicine. ?? You have vision changes. Document Released: 03/22/2002 Document Revised: 04/02/2014 Document Reviewed: 05/29/2013 ExitCare?? Patient Information ??2015 [email or web address]. This information is not intended to replace advice given to you by your health care provider. Make sure you discuss any questions you have with your health care provider. documented in this encounter Plan of Treatment Scheduled Orders Name Type Priority Associated Diagnoses Orde r Schedule MATERNAL SCREEN QUAD -REF LAB Lab Routine Supervision of normal , second trimester Expected: 02/14/2015, Expires: 03/21/2015 documented as of this encounter Procedures Procedure Name Priority Date/Time Associated Diagnosis Comments POCT URINALYSIS DIPSTICK Routine 02/10/2015 12:01 PM EST Supervision of normal , second trimester documented in this encounter Results * THYROID STIMULATING HORMONE (03/22/2015 7:12 AM EST) TSH 2.070 0.270 - 4.200 mcIU/mL [facility] Blood specimen (specimen) UPPER LIMB STRUCTURE / Unknown 03/22/2015 7:12 AM EST 03/22/2015 2:14 PM EST us Kash Tabares MD CHEMISTRY ORDERABLES Final Resu lt [facility] [address] [place] [address] * (ABNORMAL) CBC WITH AUTO DIFF (03/22/2015 7:12 AM EST) WBC 5.6 4.0 - 11.0 x10(3)/mcL [facility] RBC 3.50(L) 3.80 - 5.10 x10(6)/mcL [facility] Hgb 11.5(L) 12.0 - 15.6 gm/dL [facility] Hct 33.6(L) 35.7 - 45.9 % [facility] MCV 96.2 82.5 - 99.8 fL [facility] MCH 32.9 27.0 - 34.3 pg [facility] MCHC 34.2 32.1 - 35.3 gm/dL [facility] RDW 13.0 11.5 - 15.0 % [facility] Platelet 177 144 - 423 x10(3)/mcL [facility] MPV 8.7 6.8 - 10.8 fL [facility] Blood specimen (specimen) UPPER LIMB STRUCTURE / Unknown 03/22/2015 7:12 AM EST 03/22/2015 7:12 AM EST us Kash Tabares MD HEMATOLOGY ORDERABLES Final Res ult [facility] [address] [place] [address] * (ABNORMAL) CYSTIC FIBROSIS 32 MUTATIONS -REF LAB (03/22/2015 7:12 AM EST) Allele 1 Cys Fib J877nrh(A) [employer] Allele 2 Cys Fib Negative [facility] [employer] CF Mut Intrp 1 mutation(A) [employer] Comment: Heterozygous: 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 No information was provided indicating whether the testing was for affected or carrier status; therefore, a specific result interpretation is not possible. His/her family members and reproductive partner should be offered CF mutation screening. ?? Genetic counseling is recommended for couples who both carry a CF mutation. If clinical symptoms of CF are present, testing for additional mutations is recommended. Specimen: Whole Blood Symptom: Unknown Ethnicity: Unknown Family History: Unknown This result has been reviewed and approved by Issac Melvin, Ph.D. BACKGROUND INFORMATION: Cystic Fibrosis (CFTR) 32 Mutations CHARACTERISTICS: Chronic sino-pulmonary disease, gastrointestinal malabsorption/pancreatic insufficiency, and obstructive azoospermia. Findings are often limited to a single organ system such as isolated pancreatitis, bilateral absence of the vas deferens, nasal polyposis, or broncheictasis in non-classic cystic fibrosis (CF). INCIDENCE: 1 in 3,000 Caucasians or Ashkenazi Quaker, 1 in 8,000 Hispanics, 1 in 15,000 Americans, 1 in 32,000 Asians. INHERITANCE: Autosomal recessive. PENETRANCE: High for severe mutations, variable for mild mutations. 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 MUTATIONS TESTED: G85E (c.254G>A), R117H (c.350G>A), R334W (c.1000C>T), R347P (c.1040G>C), R347H (c.1040G>A), 394delTT (c.262_263delTT), A455E (c.1364C>A), K749mni (c.1519_1521de;ATC), G392njm (c.1521_1523de;CTT), V520F (c.1558G>T), G542X (c.1624G>T), S549N (c.1646G>A), S549R (c.1647T>G), G551D (c.1652G>A), R553X (c.1657C>T), R560T (c.1679G>C), ??621+1G>T (c.489+1G>T), 711+1G>T (c.579+1G>T), 1078delT (c.948delT), T5674M (c.3484C>T), D9535E (c.3846G>A), S8816G (c.3909C>G), 1717-1G>A (c.1585-1G>A), 1898+1G>A (c.1766+1G>A), 2183AA>G (c.2051_2052delAAinsG), 2184delA (c.2052delA), 2789+5G>A (c.2657+5G>A), 3120+1G>A (c.2988+1G>A), 3659delC (c.3528delC), 3849+10kbC>T (c.3717+64601Y>T), 3876delA (c.3744delA), 3905insT (c.3773_3774insT). For specimens positive for R117H, the IVS-8/poly T (c.1210-12T[5_9] is analyzed. ??The mutations tested are listed above according to the legacy nomenclature; the standard nomenclature is listed in parentheses. ?? Panel mutations are reported according to the legacy nomenclature. CLINICAL SENSITIVITY: Ashkenazi Quaker 94 percent, 89 percent, 73 percent, 65 percent, Greek 55 percent. METHODOLOGY: PCR, oligonucleotide ligation assay (ROME), fluorescent hybridization probes and capillary electrophoresis. ANALYTICAL SENSITIVITY AND SPECIFICITY: 99 percent. LIMITATIONS: Diagnostic errors can occur due to rare sequence variations. Only the 32 CFTR mutations listed above will be interrogated. Test developed and characteristics determined by [employer]. See Compliance Statement C: [employer] Blood specimen (specimen) UPPER LIMB STRUCTURE / Unknown 03/22/2015 7:12 AM EST 03/22/2015 2:24 PM EST us Kash Tabares MD CHEMISTRY ORDERABLES Final Resu lt [facility] [facility] [employer] [address] [place] [address] * (ABNORMAL) POCT URINALYSIS DIPSTICK (02/10/2015 12:01 PM EST) Color, UA yellow Clear, Yellow, [place], Rust SEP OFFICE Clarity, UA clear Clear, Cloudy SEP OFFICE Glucose, UA neg g/dl% SEP OFFICE Bilirubin, UA neg Pos/Neg SEP OFFICE Ketones, UA neg Pos/Neg SEP veterinary virus serum inspector Grav, UA 1.030 1.001 - 1.035 g/dl SEP OFFICE Blood, UA neg Pos/Neg SEP OFFICE pH, UA 6.0 5.0 - 8 SEP OFFICE Protein, UA 1+ Pos/Neg SEP OFFICE Urobilinogen, UA 0.2 0.2 - 1.0 mg/dL SEP OFFICE Leukocytes, UA neg Pos/Neg SEP OFFICE Nitrite, UA neg Pos/Neg SEP OFFICE UA Appear POC NA SEP OFFICE Lot Number [id number] SEP OFFICE Expiration Date 01/2016 SEP OFFICE SeriAl # NA SEP OFFICE Urine specimen (specimen) 02/10/2015 12:01 PM EST us Kash Tabares MD POINT OF CARE TEST ORDERABLES F inal Result SEP OFFICE documented in this encounter Visit Diagnoses Diagnosis Supervision of normal , second trimester- Primary Dizziness Dizziness and giddiness Weight loss Loss of weight documented in this encounter Care Teams Subsurface Augmentee Elint Operator Relationship Specialty Start Date End Date Nehemias Barron MD [address] [place] [phone] PCP - General 12/01/10 Easton Thompson MD [address] [place] [address] [address] [place] [address] Physician Obstetrics & Gynecology 01/29/14 documented as of this encounter
--- OUTSIDE RECORDS SUMMARY | 2024-03-07 05:08 | XMS_ITS | Encounter Summary ---
Author Organization [place] [address] Care Team Providers Care Undergraduate Internship Name Role Phone Nehemias Barron MD Primary Care Provider [phone] Easton Thompson MD Unavailable [phone] Reason for Visit * Reason Comments Amenorrhea Encounter Details Date Type Department Care Team (Latest Contact Info) Description 01/03/2015 10:00 AM EDT INITIAL VISIT [facility] Women[facility] Crit [address] [place] [address] Prabha Snow CCMA Encounter for supervision of other normal in first trimester (Primary Dx) Social History Tobacco Use [...] - Inhaled Oxygen Concentration - - Weight 56.6 kg (124 lb 12.8 oz) 01/03/2015 9:59 AM EDT Height 165.1 cm (5' 5 ) 01/03/2015 9:59 AM EDT Body Mass Index 20.77 01/03/2015 9:59 AM EDT documented in this encounter Ordered Prescriptions Prescription Sig Dispense Quantity Refills Last Filled Start Date End Date PNV #28-iron fumarate-folic ac 27-1 mg Oral TabletIndications: Take 1 Tab by mouth daily for 30 days. Indications: 30 Tab 10 01/03/2015 5 documented in this encounter Progress Notes * Prabha Sheikh MA - 01/03/2015 2:12 PM EDT Genetic Screening Genetic Screening/Teratology Counseling- Includes patient, baby's father, or anyone in either family with: Patient's age 35 years or older as of estimated date of delivery: No Cystic fibrosis: No Thalassemia (Cymraes, Luxembourgish, Mediterranean, or background): MCV less than 80: No Willy'schorea: No Neural tube defect (Meningomyelocele, Spina bifida, or Anencephaly): No Mental retardation/autism: No Congenital heart defect: No Down syndrome: No Other inherited genetic or chromosomal disorder: No Irvin-Sachs (Ashkenazi Hinduism, Cajun, Korean [place]): No Maternal metabolic disorder (eg. Type 1 diabetes, PKU): No Aktheryn disease (Ashkenazi Hinduism): No Patient or baby's father had child with defects not listed above: No Familial dysautonomia (Ashkenazi Hinduism): No Recurrent loss, or a stillbirth: No Sickle cell disease or trait (): No Medications (including supplements, vitamins, herbs, or OTC drugs)/illicit/recreational drugs/alcohol since last menstrual period: No Hemophilia or other blood disorders: No Muscular dystrophy: No * Prabha Sheikh MA - 01/03/2015 10:05 AM EDT Patient was given New OB Orientation materials including Pre Registration Education information with worksheets, Guidelines for OB Patients, Dental Letter, Medications Safe in Work Sheet, Vaccine information. Patient advised to review all materials given. Obstetric History: Recurrent Loss/Stillbirth Yes 2014 Gestational Diabetes No History of Infertility No Rh Sensitized no OCP's at time of conception No Symptoms since LMP: Nausea/Vomiting Yes both Fatigue Yes Cramps Yes Headaches No Dizziness Yes Breast Tenderness Yes Movement No Surgical History; Surgeries:Yes dnc, appendix, leep, Hospitalizations No Anesthesia ComplicationsNo Psychosocial History: Paternity Questions: No Eating Disorders: No Cultural/Spiritual Needs: No Learning /Nutritional Needs: No Trauma/Domestic Violence/Sexual Abuse: No Psychiatric: No Depression: Yes 2011 ppv Hospitalized for Depression: No H/O Suicide Attempt: No Meds taken for depression: No Social Service Referral Made/Under 18: No Counseling/Referral: No Genetic Screening/Counseling- enter smart phrase . obgeneticscreening Sexual History: Sexual Transmitted Diseases No Treated for STD's No Hepatitis B Immunized Yes Exposure to Hepatitis/HIV No Currently Sexually Active Yes IV drug use No Age at first intercourse: 17 Partners been:N/A documented in this encounter Miscellaneous Notes * Patient Instructions - Prabha Sheikh MA - 01/03/2015 10:13 AM EDT You may be contacted by mail [...] office and ask to speak to our clinical office technician. You will need to have NEW OB BLOOD WORK COMPLETED before your next scheduled appointment. If this is not completed, you may be asked to reschedule your appointment. documented in this encounter Plan of Treatment Not on file documented as of this encounter Results * HIV AG/AB (01/15/2015 2:26 PM EDT) HIV Ag/AB Non-Reactiv e [facility] Blood specimen (specimen) 01/15/2015 2:26 PM EDT 01/15/2015 6:58 PM EDT us Easton Thompson MD IMMUNOLOGY ORDERABLES Final Result [facility] [address] [place] [address] * HEPATITIS B SURFACE ANTIGEN (01/15/2015 2:26 PM EDT) Pathologist [facility] Hep Bs Ag Negative Negative [facility] Blood specimen (specimen) UPPER LIMB STRUCTURE / Unknown 01/15/2015 2:26 PM EDT 01/15/2015 6:58 PM EDT Easton Thompson MD CHEMISTRY ORDERABLES [facility] Performing Organization Address [facility] de Phone Number [facility] [address] [place] [address] * SYPHILIS SCREEN WITH REFLEX RPR QUANT (01/15/2015 2:26 PM EDT) Pathologist [facility] TREP(SYPHILIS) AB INDEX <0.10 <=1.09 Index Value [facility] Comment: <0.90 - Negative 0.90 to 1.00 - Equivocal ?? Patients with equivocal results should be retested in 7-14 days. >=1.10 - Positive NOTE: ??All equivocal and positive results will be reflexed to Quantitative Non-Treponemal(RPR)test. Blood specimen (specimen) 01/15/2015 2:26 PM EDT 01/15/2015 6:58 PM EDT Easton Thompson MD CHEMISTRY ORDERABLES Final R [facility] Performing Organization Address [facility] de Phone Number [facility] [address] [place] [address] * RUBELLA ANTIBODY IGG (01/15/2015 2:26 PM EDT) Pathologist [facility] Rubella IgG 5.880 Index Value [facility] Comment: < 0.90 - Negative No [...] 2:26 PM EDT 01/15/2015 6:58 PM EDT us Easton Thompson MD IMMUNOLOGY ORDERABLES Final Result Performing Organization Address City/[facility] Co de Phone Number [facility] [address] [place] [address] * ANTIBODY SCREEN IGG (01/15/2015 2:26 PM EDT) ABSC IgG Int Negative [facility] Blood specimen (specimen) UPPER LIMB STRUCTURE / Unknown 01/15/2015 2:26 PM EDT 01/15/2015 6:58 PM EDT Easton Thompson MD BLOOD BANK ORDERABLES Final Result Performing Organization Address [facility] de Phone Number [facility] [address] [place] [address] * URINE CULTURE (01/03/2015 10:27 AM EDT) Final 8,000 cfu/ml Staphylococcus species 20,000 cfu/ml Gram positive rods suggestive of Lactobacilli No further workup [facility] Urine specimen (specimen) 01/03/2015 10:27 AM EDT 01/03/2015 9:03 PM EDT us Easton Thompson MD MICROBIOLOGY - GENERAL ORDER MAURICE Final Result Performing Organization Address [facility] Co de Phone Number [facility] [address] [place] [address] documented in this encounter Visit Diagnoses Diagnosis Encounter for supervision of other normal in first trimester- Primary documented in this encounter Care Teams Undergraduate Internship Relationship Specialty Start Date End Date Nehemias Barron MD [address] [place] [phone] PCP - General 12/01/10 Easton Thompson MD [address] [place] [address] [address] [place] [address] Physician Obstetrics & Gynecology 01/29/14 documented as of this encounter
--- OUTSIDE RECORDS SUMMARY | 2024-03-07 05:08 | XMS_ITS | Encounter Summary ---
Author Organization [place] [address] Care Team Providers Care Rougher Machine Operator Name Role Phone Nehemias Barron MD Primary Care Provider [phone] Easton Thompson MD Unavailable [phone] Reason for Visit * Reason Comments Contractions Abdominal Pain * Auth/Cert/Inpt - Closed Specialty Diagnoses / Procedures Referred By Eusebia t Referred To Contact Referral ID Status Reason Start Date Expiration Date Visits Re quested Visits Authorized [id number] Closed 1 1 Encounter Details Date Type Department Care Team (Latest Contact Info) Description 03/12/2015 12:20 AM EST - 03/12/2015 2:02 AM [facility] Hospital [facility] [place] [address] Kash Tabares MD [address] [facility] [address] [place] [id number] Discharge Disposition: Home or Self Care Social History Tobacco Use Types Packs/Day Years Used Date Smoking Tobacco: Every Day Cigarettes 0.5 8 Smokeless Tobacco: Never Tobacco Cessation:Ready to Q [...] Sign Reading Time Taken Comments Blood Pressure 108/51 03/12/2015 12:29 AM EST Pulse 89 03/12/2015 12:29 AM EST Temperature 36.6 ??C (97.8 ??F) 03/12/2015 12:[address] Respiratory Rate 20 03/12/2015 12:38 AM EST Oxygen Saturation - - Inhaled Oxygen Concentration - - Weight 54.9 kg (121 lb) 03/12/2015 12:38 AM EST Height 165.1 cm (5' 5 ) 03/12/2015 12:38 AM EST Body Mass Index 20.14 03/12/2015 12:38 AM EST documented in this encounter Functional [...] Neel Donovan RN documented in this encounter Discharge Instructions * Discharge Instructions* Neel Cross RN - 03/12/2015 1:48 AM EST Keep your appointment on 04/19/[address] Tabares Call the office as needed. Follow instructions verbally given by Marco Antonio Putnam CNM documented in this encounter Medications at Time [...] documented in this encounter Progress Notes * Neel Cross RN - 03/12/2015 1:49 AM EST Bonny was discharged home by Marco Antonio Putnam CNM. IV site that was present upon arrival (placed by squad) was discontinued from the left antecubital area, the catheter was visibly intact, the site was unremarkable. She was given her discharge instructions by the grout pump operator. She received Benadryl, 50 mg forsleep prior to discharge. She received Tylenol for pain. Home, ambulatory, accompanied by boyfriendand his mother. * Neel Cross RN - 03/12/2015 1:39 AM EST Marco Antonio Putnam CNM at bedside to see patient. * Neel Cross RN - 03/12/2015 12:[address] Pena of the patients arrival and complaints of perceived contraction pain in her abdomen, back, and vagina. Orders received. documented in this encounter Nursing Notes * Sabine Putnam CNM - 03/12/2015 1:55 AM EST S: Presented today to triage per squad, with contractions. States pain started on left groin sidearea and radiated to back. Denies any vb or lof. Fluttery FM. Shared she is fearful d/t having PTL at 22 and 31 weeks with last child, but delivered at term. O: VSS, Afebrile FHR 150 per doppler UC's none seen U/A wnl SVE closed thick per RN A: IUP 18 08/15 Round ligament pain P: Tylenol for pain Benadryl for sleep Rev precautions, when to call FU at reg appointment 03/19 Cosigned by Cathie Pena DO at 03/18/2015 11:33 AM EST documented in this encounter Plan of Treatment Not on file documented as of this encounter Procedures Procedure Name Priority Date/Time Associated Diagnosis Comments URINALYSIS POC Routine 03/12/2015 12:54 AM EST documented in this encounter Results * (ABNORMAL) URINALYSIS POC (03/12/2015 12:54 AM EST) UA Color POC Yellow [facility] POI NT OF CARE LABORAT[facility] UA Appear POC Clear Clear [facility] PO INT OF CARE LABORATORY UA Gluc POC Negative Negative [facility] POIN T OF CARE LABORATORY UA Ketones POC Negative Negative [facility] P OINT OF CARE LABORATORY UA Blood POC Negative Negative [facility] POI NT OF CARE LABORATORY UA pH POC 8.5(H) 5.0 - 8.0 SE POINT OF CARE LABORATORY UA Protein POC Negative Negative [facility] P OINT OF CARE LABORATORY UA Urobilinogen POC 0.2 mg/dl <=1 mg/dl SE POINT OF CARE LABORATORY UA Nitrite POC Negative Negative [facility] P OINT OF CARE LABORATORY UA Leuk Est POC Negative Negative [facility] POINT OF CARE LABORATORY UA SG POC 1.015 1.001 - 1.035 [facility] POINT OF CARE LABORATORY Urine specimen (specimen) 03/12/2015 12:54 AM EST 03/12/2015 12:54 AM EST us Kash Tabares MD POINT OF CARE TEST ORDERABLES F inal Result [facility] POINT OF CARE LABORATORY [address] [facility] [place] [id number] documented in this encounter Visit Diagnoses Not on filedocumented in this encounter Administered Medications Inactive Administered Medications - up to 1 most recent administrations Medication Order MAR Action Action Date Dose Rate Site acetaminophen (TYLENOL) tablet 1,000 mg 1,000 mg, Oral, ONCE, 1 dose, On Tue03/12/15 at 0100, Maximum adult dose of acetaminophen is 4000 mg from all sources in 24 hours. Given 03/12/2015 12:56 AM EST 1,000 mg diphenhydrAMINE (BENADRYL) tablet 50 mg 50 mg, Oral, ONCE, 1 dose, On Tue03/12/15 at 0200 Given 03/12/2015 1:51 AM EST 50 mg documented in this encounter Active and Recently Administered Medications Times are shown in EST. Scheduled Medication Order 03/10/2015 03/11/2015 03/12/2015 acetaminophen (TYLENOL) tablet 1,000 mg (COMPLETED) 1,000 mg, Oral, ONCE, 1 dose, On Tue03/12/15 at 0100, Maximum adult dose of acetaminophen is 4000 mg from all sources in 24 hours. 0056 (Given - Provid er: Neel Cross, OSCAR) diphenhydrAMINE (BENADRYL) tablet 50 mg (COMPLETED) 50 mg, Oral, ONCE, 1 dose, On Tue03/12/15 at 0200 0151 (Given - Provid er: Neel Cross, OSCAR) documented in this encounter Orders Nursing Count Last Ordered Date First Orde red Date PERFORM DIPSTICK URINALYSIS 1 03/12/2015 documented in this encounter Care Teams Rougher Machine Operator Relationship Specialty Start Date End Date Nehemias Barron MD [address] [place] [address] PCP - General 12/01/10 Easton Thompson MD [address] [place] [address] [address] [place] [address] Physician Obstetrics & Gynecology 01/29/14 documented as of this encounter
--- OUTSIDE RECORDS SUMMARY | 2024-03-07 05:08 | XMS_ITS | Encounter Summary ---
Author Organization [place] [address] Care Team Providers Care Display Department Manager Name Role Phone Nehemias Barron MD Primary Care Provider [phone] Easton Thompson MD Unavailable [phone] Reason for Visit * Reason Comments Procedure Encounter Details Date Type Department Care Team (Latest Contact Info) Description 01/20/2015 9:00 AM EDT INITIAL VISIT SEP Women[facility] th Crit [address] [place] [address] Kash Tabares MD [address] [facility] [address] [place] [address] state, incidental (Primary Dx); Supervision of normal , first trimester Social History Tobacco Use Types Packs/Day [...] Sign Reading Time Taken Comments Blood Pressure 92/56 01/20/2015 8:59 AM EDT Pulse - - Temperature - - Respiratory Rate - - Oxygen Saturation - - Inhaled Oxygen Concentration - - Weight 57.2 kg (126 lb) 01/20/2015 8:59 AM EDT Height 165.1 cm (5' 5 ) 01/20/2015 8:59 AM EDT Body Mass Index 20.97 01/20/2015 8:59 AM EDT documented in this encounter Progress Notes * Kash Tabares MD - 01/21/2015 1:46 PM EDT 11+3, no unusual complaints S/p dating sonogram Discussed genetic screening options pt to consider Advised flu shot Pelvic deferred, s/p nml sonogram, neg GC in ED end of November, pap utd Precautions reviewed * Prabha Sheikh MA - 01/20/2015 9:19 AM EDT Results for orders placed or performed in visit on 01/20/15 POCT URINALYSIS DIPSTICK Result Value Ref Range Color, UA Clear, Yellow, [place], Rust Clarity, UA Clear, Cloudy Glucose, UA neg g/dl% Bilirubin, UA neg Pos/Neg Ketones, UA neg Pos/Neg Spec Grav, UA 1.030 1.001 - 1.035 g/dl Blood, UA neg Pos/Neg pH, UA 6.0 5.0 - 8 Protein, UA trace Pos/Neg Urobilinogen, UA neg 0.2 - 1.0 mg/dL Leukocytes, UA neg Pos/Neg Nitrite, UA neg Pos/Neg UA Appear POC Lot Number Expiration Date SeriAl # * Prabha Sheikh MA - 01/20/2015 9:05 AM EDT Edema No Contractions No Loss of Fluid No Bleeding No documented in this encounter H&P Notes * Kash Tabares MD - 01/21/2015 1:49 PM EDT Subjective Subjective: Patient ID: Bonny Olivares is a 24 y.o. female. Chief Complaint Patient presents with ??? Procedure Procedure Pertinent negatives include no chest pain, fatigue, neck pain or rash. 11+3, no unusual complaints S/p dating sonogram Discussed genetic screening options pt to consider Advised flu shot Pelvic deferred, s/p nml sonogram, neg GC in ED end of November, pap utd Precautions reviewed Past Medical History Diagnosis Date ??? Knee [...] Motion sickness ??? Cancer (HCC) melanoma back Past Surgical History Procedure Laterality Date ??? Appendectomy age 7 ??? Cervix biopsy 2010, 05/29/2013 ??? Skin cancer excision 06/2012 melanoma back ??? Leep N/A 06/27/2013 LOOP EXCISION PROCEDURE (LEEP); Surgeon: Sachin Castellanos MD; Location: [facility] MAIN OR; Service: Gynecology ??? Dilation and curettage of uterus N/A 02/20/2014 DILATION & CURETTAGE SUCTION EVACUATION FOR MISSCARRIAGE ; Surgeon: Kash Tabares MD; Location: [facility] MAIN OR; Service: Gynecology Family History Problem Relation Age of Onset ??? Cancer Maternal Grandmother melanoma ??? Anesth Problems Neg Hx History Social History ??? Marital Status: Single [...] Topics Concern ??? None Social History Narrative Allergies Allergen Reactions ??? Sulfa (Sulfonamide Antibiotics) Swelling and Rash throat closes up, rash, and red everywhere Current Outpatient Prescriptions Medication Sig Dispense Refill ??? doxylamine-pyridoxine (DICLEGIS) 10-10 mg Oral Tablet, Delayed Release (E.C.) Take by mouth daily. ??? PNV #28-iron fumarate-folic ac 27-1 mg Oral Tablet Take 1 Tab by mouth daily for 30 days. Indications: 30 Tab 10 ??? acetaminophen Oral Tab Take 325 mg by mouth every 4 hours as needed for Pain. ??? ondansetron (ZOFRAN-ODT) 4 mg Oral Tablet, Rapid Dissolve Take 4 mg by mouth every 6 hours as needed for Nausea. ??? malathion (OVIDE) 0.5 % Top Lotion Apply topically See Admin Instructions. See admin instructions. 1 Bottle 1 No current facility-administered medications for this visit. There is no immunization history on file for this patient. Patient Active Problem List Diagnosis ??? Syncope, vasovagal ??? RA (rheumatoid arthritis) (HCC) ??? Lymphadenopathy, posterior cervical ??? Traumatic ecchymosis of multiple sites of lower extremity ??? Ecchymosis ??? Supervision of normal Patients past medical, family and social histories were reviewed and updated. There were no changesexcept as noted. Review of Systems Constitutional: Negative for activity change, appetite change and fatigue. HENT: Negative. Eyes: Negative. Respiratory: Negative. Negative for chest tightness and shortness of breath. Cardiovascular: Negative. Negative for chest pain. Gastrointestinal: Negative. Negative for abdominal distention. Genitourinary: Negative. Negative for difficulty urinating, pelvic pain and dyspareunia. Musculoskeletal: Negative. Negative for neck pain and neck stiffness. Skin: Negative for color change and rash. Neurological: Negative. Psychiatric/Behavioral: Negative. Objective Objective: Filed Vitals: 01/20/15 0859 BP: 92/56 Height: 5' 5 (1.651 m) Weight: 126 lb (57.153 kg) Body mass index is 20.97 kg/(m^2). Physical Exam Constitutional: She appears well-developed and well-nourished. HENT: Head: Normocephalic and atraumatic. Neck: Normal range of motion. Neck supple. Cardiovascular: Normal rate and regular rhythm. Pulmonary/Chest: Effort normal and breath sounds normal. No respiratory distress. Abdominal: Soft. She exhibits no distension and no mass. There is no tenderness. There is no rebound and no guarding. Musculoskeletal: Normal range of motion. Neurological: She is alert. Skin: Skin is warm and dry. Psychiatric: She has a normal mood and affect. Her behavior is normal. +T Assessment and Plan: Bonny was seen today for procedure. Diagnoses and associated orders for this visit: state, incidental - POCT urinalysis dipstick Supervision of normal , first trimester No Follow-up on file. documented in this encounter Miscellaneous Notes * Patient Instructions - Prabha Sheikh MA - 01/20/2015 9:06 AM EDT You may be contacted by [...] office and ask to speak to our court registry officer. Call office anytime with concerns. documented in this encounter Plan of Treatment Not on file documented as of this encounter Procedures Procedure Name Priority Date/Time Associated Diagnosis Comments POCT URINALYSIS DIPSTICK Routine 01/20/2015 9:18 AM EDT state, incidental documented in this encounter Results * POCT URINALYSIS DIPSTICK (01/20/2015 9:18 AM EDT) Color, UA Clear, Yellow, [place]trim, Rust SEP OFFICE Clarity, UA Clear, Cloudy [facility] Glucose, UA neg g/dl% [facility] OFFICE Bilirubin, UA neg Pos/Neg [facility] OFF[facility] Ketones, UA neg Pos/Neg SEP learning and development director Grav, UA 1.030 1.001 - 1.035 g/dl [facility] Blood, UA neg Pos/Neg [facility] pH, UA 6.0 5.0 - 8 [facility] Protein, UA trace Pos/Neg [facility] Urobilinogen, UA neg 0.2 - 1.0 mg/dL [facility] Leukocytes, UA neg Pos/Neg [facility] OFF[facility] Nitrite, UA neg Pos/Neg [facility] OFFICE UA Appear POC SEP OFFICE Lot Number SEP OFFICE Expiration Date SEP OFFICE SeriAl # SEP OFFICE Urine specimen (specimen) 01/20/2015 9:18 AM EDT Kash Tabares MD POINT OF CARE TEST ORDERABLES F inal Result [facility] OFFICE documented in this encounter Visit Diagnoses Diagnosis state, incidental- Primary Supervision of normal , first trimester documented in this encounter Historical Medications * This list may reflect changes made after this encounter. doxylamine-pyrido xine (DICLEGIS) 10-10 mg Oral Tablet, Delayed Release (E.C.) Take by mouth daily. 07/21/2015 added in this encounter Care Teams Display Department Manager Relationship Specialty Start Date End Date Nehemias Barron MD [address] [place] [address] PCP - General 12/01/10 Easton Thompson MD [address] [place] [address] [address] [place] [address] Physician Obstetrics & Gynecology 01/29/14 documented as of this encounter
--- OUTSIDE RECORDS SUMMARY | 2024-03-07 05:08 | XMS_ITS | Encounter Summary ---
Author Organization [place] [address] Care Team Providers Care Supervisor Pastry Name Role Phone Nehemias Barron MD Primary Care Provider [phone] Easton Thompson MD Unavailable [phone] Reason for Visit * Reason Onset Date Comments Results 04/07/2015 Visit Follow Up 04/07/2015 Encounter Details Date Type Department Care Team (Late Contact Info) Description 04/07/2015 Telephone SEP Women's [facility] Crit [address] [place] [phone] Ciera Lira RMA Results; Visit Follow Up Social History Tobacco [...] Telephone Encounter - Niki Fraser ABR-OE - 04/15/2015 4:51 PM EST Pt aware * Telephone Encounter - Davida Jane - 04/11/2015 1:16 PM EST They can go to any lab to get it drawn, but since he has no insurance he would need to pay out of pocket for the test. She can contact her behavioral health case manager at [facility] to see since this is for her ifthey have any programs or if her insurance will cover the test for him to get it, but I doubt it will. * Telephone Encounter - Kash Tabares MD - 04/08/2015 3:57 PM EST Spoke to pt / SO yesterday afternoon, they're interested in SO getting tested but concerned regarding access given he doesn't have insurance right now. Davida - do we know of any way to facilitate FOBCF carrier testing? I know this often comes up, thanks. * Telephone Encounter - Prabha Sheikh MA - 04/07/2015 4:48 PM EST Pt returning Dr. Dumas call, states she would be around for the next little bit if you could call her back. * Telephone Encounter - Samir Ciera Billings DENILSON - 04/07/2015 2:09 PM EST Laboratory results received, patient notified by: Patient informed directly. Pt would like to speakto Dr Tabares. She has a few questions regarding this * Telephone Encounter - Samir Ciera Billings DENILSON - 04/07/2015 2:08 PM EST ----- Message from Kash Tabares MD sent at 04/02/2015 4:50 PM EST ----- Please let pt know her Cystic Fibrosis Carrier screen was positive. This will likely not affect thepregnancy, but when we find someone has a + carrier screen we would advise the father of the baby be screened also, which he would pursue through his physician if desired. I'll be happy to speak withpt next week or at her next appt if any questions. Thanks. documented in this encounter Plan of Treatment Not on file documented as of this encounter Visit Diagnoses Not on filedocumented in this encounter Care Teams Supervisor Pastry Relationship Specialty Start Date End Date Nehemias Barron MD [address] [facility] [address] PCP - General 12/01/10 Easton Thompson MD [address] [place] [address] [address] [place] [address] Physician Obstetrics & Gynecology 01/29/14 documented as of this encounter
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
--- OUTSIDE RECORDS SUMMARY | 2024-03-07 05:08 | XMS_ITS | Encounter Summary ---
Author Organization [place] [address] Care Team Providers Care Emt I/99 Name Role Phone Nehemias Barron MD Primary Care Provider [phone] Easton Thompson MD Unavailable [phone] Reason for Referral * Ultrasound (Routine) - Closed Specialty Diagnoses / Procedures Referred By Contac t Referred To Contact Obstetrics Diagnoses History of labor, current , second trimester Pelvic pain affecting in second trimester, antepartum Procedures PN US OB TRANSVAGINAL Kash Tabares MD [address] [place] [address] Phone: tel: fax: [facility] [address] [place] [address] Phone: tel: fax: Referral ID Status Reason Start Date Expiration Date Visits Re quested Visits Authorized [id number] Closed 03/17/2015 03/16/2016 1 1 Encounter Details Date Type Department Care Team (Latest Contact Info) Description 03/17/2015 3:40 PM EST ROUTINE FOLLOW UP OB VISIT [facility] [address] [place] [address] Kash Tabares MD [address] [place] [address] Supervision of normal , second trimester (Primary Dx); History of labor, current , second trimester; Pelvic pain affecting in second trimester, antepartum Social History Tobacco Use Types Packs/Day Years [...] Sign Reading Time Taken Comments Blood Pressure 90/56 03/17/2015 3:17 PM EST Pulse - - Temperature - - Respiratory Rate - - Oxygen Saturation - - Inhaled Oxygen Concentration - - Weight 57.6 kg (127 lb) 03/17/2015 3:17 PM EST Height 165.1 cm (5' 5 ) 03/17/2015 3:17 PM EST Body Mass Index 21.13 03/17/2015 3:17 PM EST documented in this encounter Functional [...] Entry Date Author No 03/12/2015 1:47 AM EST Neel Cross RN documented in this encounter Progress Notes * Kash Tabares MD - 03/17/2015 4:40 PM EST 19+3, +FM, no complaints today, was in triage with pain / ? Ctxs, pain resolved no issue since, will get labs, has sono next week will add CL had PTL last preg though del @ term, advised flu shot * Prabha Sheikh MA - 03/17/2015 3:20 PM EST Edema no Contractions No Loss of Fluid No Bleeding No 19w3d documented in this encounter Miscellaneous Notes * Patient Instructions - Kash Tabares MD - 03/17/2015 4:44 PM EST Abdominal Pain During Abdominal pain is common in . Most of the time, it does not cause harm. There are many causes of abdominal pain. Some causes are more serious than others. Some of the causes of abdominal pain in are easily diagnosed. Occasionally, the diagnosis takes time to understand. Other times, the cause is not determined. Abdominal pain can be a sign that something is very wrong with the , or the pain may have nothing to do with the at all. For this reason, always tell your health care provider if you have any abdominal discomfort. HOME CARE INSTRUCTIONS Monitor your abdominal pain for any changes. The following actions may help to alleviate any discomfort you are experiencing: ?? Do not have sexual intercourse or put anything in your vagina until your symptoms go away completely. ?? Get plenty of rest until your pain improves. ?? Drink clear fluids if you feel nauseous. Avoid solid food as long as you are uncomfortable or nauseous. ?? Only take [id number] or prescription medicine as directed by your health care provider. ?? Keep all follow-up appointments with your health care provider. SEEK IMMEDIATE MEDICAL CARE IF: ?? You are bleeding, leaking fluid, or passing tissue from the vagina. ?? You have increasing pain or cramping. ?? You have persistent vomiting. ?? You have painful or bloody urination. ?? You have a fever. ?? You notice a decrease in your baby's movements. ?? You have extreme weakness or feel faint. ?? You have shortness of breath, with or without abdominal pain. ?? You develop a severe headache with abdominal pain. ?? You have abnormal vaginal discharge with abdominal pain. ?? You have persistent diarrhea. ?? You have abdominal pain that continues even after rest, or gets worse. MAKE SURE YOU: ?? Understand these instructions. ?? Will watch your condition. ?? Will get help right away if you are not doing well or get worse. Document Released: 03/28/2006 Document Revised: 01/16/2014 Document Reviewed: 10/25/2013 ExitCare?? Patient Information ??2015 [employer]. This information is not intended to replace advice given to you by your health care provider. Make sure you discuss any questions you have with your health care provider. documented in this encounter Plan of Treatment Scheduled Orders Name Type Priority Associated Diagnoses Orde r Schedule PN US OB TRANSVAGINAL Imaging Routine History of labor, current , second trimester Pelvic pain affecting in second trimester, antepartum Expected: 03/24/2015, Expires: 03/17/2016 documented as of this encounter Visit Diagnoses Diagnosis Supervision of normal , second trimester- Primary History of labor, current , second trimester Pelvic pain affecting in second trimester, antepartum documented in this encounter Care Teams Emt I/99 Relationship Specialty Start Date End Date Nehemias Barron MD [address] [place] [address] PCP - General 12/01/10 Easton Thompson MD [address] [place] [address] [address] [place] [address] Physician Obstetrics & Gynecology 01/29/14 documented as of this encounter
--- OUTSIDE RECORDS SUMMARY | 2024-03-07 05:08 | XMS_ITS | Encounter Summary ---
[place] [address] Care Team Providers Care Racquet Maker Name Role Phone Nehemias Barron MD Primary Care Provider [phone] Easton Thompson MD Unavailable [phone] Encounter Details Date Type Department Care Team (Latest Contact Info) Description 03/22/2015 7:00 AM EST - 03/22/2015 11:59 PM [facility] Hospital Encounter [facility] [address] [facility] [place] [address] Encounter for supervision of normal in second trimester, unspecified (Primary Dx); Dizziness; Weight loss; Supervision of normal , second trimester Discharge [...] r Schedule OP VENIPUNCTURE CHARGE Lab Timed Dizziness Weight loss Supervision of normal , second trimester One Time for 1 Occurrences starting 03/22/2015 until 03/22/2015 documented as of this encounter Procedures Procedure Name Priority Date/Time Associated Diagnosis Comments MATERNAL SCREEN QUAD -REF LAB Routine 03/22/2015 7:12 AM EST Dizziness Weight loss Supervision of normal , second trimester Encounter for supervision of normal in second trimester, unspecified CYSTIC FIBROSIS 32 MUTATIONS -REF LAB Routine 03/22/2015 7:12 AM EST Supervision of normal , second trimester DIFFERENTIAL Routine 03/22/2015 7:12 AM EST CBC WITH DIFF Routine 03/22/2015 7:12 AM EST Dizziness Weight loss THYROID STIMULATING HORMONE Routine 03/22/2015 7:12 AM EST Dizziness Weight loss documented in this encounter Results * MATERNAL SCREEN QUAD -REF LAB (03/22/2015 7:12 AM EST) AFP Maternal 121 ng/mL [employer] AFP MoM 1.86 [employer] [facility] HCG Maternal 57293 IU/L [employer] HCG MoM 1.90 [employer] UE3 Maternal 2.35 ng/mL [employer] UE3 MoM 1.01 [employer] EKATERINA Maternal 716 pg/mL [employer] EKATERINA MoM 3.65 [employer] Matern Srn Intrp Normal [employer] Comment: ? Maternal Serum Quad Screen (AFP/hCG/uE3/EKATERINA) ? NORMAL SCREEN Risks ? Pre-test ?Post-test ? (Cutoff) ??Open NTD ?1 in 900 ?1 in 770 ??Down Syndrome ?? 1 in 1100 ? 1 in 2600 ? (1 in 150) ??Trisomy 18 ?1 in [address] ?? <1 in [address] ?(1 in 100) Assuming the patient information listed is correct, this maternal serum screen is within normal limits. ??The interpretation is based on maternal age, gestational age, maternal weight, the presence or absence of insulin requiring maternal diabetes, maternal race, and number of fetuses, if known. AFP Specimen First [employer] [employer] AFP Age Matern 23.0 [employer] Dating LNMP [employer] AFP Est Due Dt 32Lsi52 [employer] AFP Gest Age (Exact) 20.14 [employer] AFP Wt Matern 121 lbs [employer] AFP Insulin required No [employer] Fam Hx Neural Tb Def No [employer] [employer] Fam Hx Aneuploidy No [employer] Race Matern White [employer] Nbr Fetuses Unknown [employer] [facility] EER Maternal Quad Screen See Note [employer] Comment: To download an enhanced report for this test go to: [email or web address] [email or web address] [email or web address] Blood specimen (specimen) UPPER LIMB STRUCTURE / Unknown 03/22/2015 7:12 AM EST 03/22/2015 2:24 PM EST Kash Tabares MD CHEMISTRY ORDERABLES Final Resu lt Performing Organization Address [facility] Co de Phone Number [employer] [address] [place], [place] [id number] * DIFFERENTIAL (03/22/2015 7:12 AM EST) Neut Percent 71.0 % SE G[facility] NT LABORATORY Lymph Percent 22.0 % [facility] GR ANT LABORATORY [place] Percent 5.9 % [facility] Eos Percent 0.7 % SE GRAN T LABORATORY Baso Percent 0.4 % [facility] GRA NT LABORATORY Neut# 4.0 1.8 - 7.7 x10(3)/[facility] Lymph# 1.2 0.6 - 4.8 x10(3)/[facility] SEH [facility] [place]# 0.3 0.0 - 1.3 x10(3)/[facility]H [facility] Eos# 0.0 0.0 - 0.5 x10(3)/[facility]H [facility] Baso# 0.0 0.0 - 0.2 x10(3)/[facility] Blood specimen (specimen) 03/22/2015 7:12 AM EST 03/22/2015 7:12 AM EST Kash Tabares MD HEMATOLOGY ORDERABLES Final Res ult [facility] [address] [place] [address] * THYROID STIMULATING HORMONE (03/22/2015 7:12 AM EST) TSH 2.070 0.270 - 4.200 mcIU/mL [facility] Blood specimen (specimen) UPPER LIMB STRUCTURE / Unknown 03/22/2015 7:12 AM EST 03/22/2015 2:14 PM EST us Kash Tabares MD CHEMISTRY ORDERABLES Final Resu lt Performing Organization Address [facility] Co de Phone Number [facility] [address] [place] [address] * (ABNORMAL) CYSTIC FIBROSIS 32 MUTATIONS -REF LAB (03/22/2015 7:12 AM EST) [place] 1 Cys Fib O692jzt(A) [employer] [place] 2 Cys Fib Negative [employer] CF Mut Intrp 1 mutation(A) [employer] Comment: Heterozygous: One mutation was [...] INCIDENCE: 1 in 3,000 Caucasians or Ashkenazi Congregational, 1 in 8,000 Hispanics, 1 in 15,000 Americans, 1 in 32,000 Asians. INHERITANCE: Autosomal recessive. PENETRANCE: High for severe mutations, variable for mild mutations. 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 MUTATIONS TESTED: G85E (c.254G>A), R117H (c.350G>A), R334W (c.1000C>T), R347P (c.1040G>C), R347H (c.1040G>A), 394delTT (c.262_263delTT), A455E (c.1364C>A), J315yoc (c.1519_1521de;ATC), W788huj (c.1521_1523de;CTT), V520F (c.1558G>T), G542X (c.1624G>T), S549N (c.1646G>A), S549R (c.1647T>G), G551D (c.1652G>A), R553X (c.1657C>T), R560T (c.1679G>C), ??621+1G>T (c.489+1G>T), 711+1G>T (c.579+1G>T), 1078delT (c.948delT), I8935I (c.3484C>T), M2789Q (c.3846G>A), L7365D (c.3909C>G), 1717-1G>A (c.1585-1G>A), 1898+1G>A (c.1766+1G>A), 2183AA>G (c.2051_2052delAAinsG), 2184delA (c.2052delA), 2789+5G>A (c.2657+5G>A), 3120+1G>A (c.2988+1G>A), 3659delC (c.3528delC), 3849+10kbC>T (c.3717+17975S>T), 3876delA (c.3744delA), 3905insT (c.3773_3774insT). For specimens positive for R117H, the IVS-8/poly T (c.1210-12T[5_9] is analyzed. ??The mutations tested are listed above according to the legacy nomenclature; the standard nomenclature is listed in parentheses. ?? Panel mutations are reported according to the legacy nomenclature. CLINICAL SENSITIVITY: Ashkenazi Congregational 94 percent, 89 percent, 73 percent, 65 percent, Romanian 55 percent. METHODOLOGY: PCR, oligonucleotide ligation assay (ROME), fluorescent hybridization probes and capillary electrophoresis. ANALYTICAL SENSITIVITY AND SPECIFICITY: 99 percent. LIMITATIONS: Diagnostic errors can occur due to rare sequence variations. Only the 32 CFTR mutations listed above will be interrogated. Test developed and characteristics determined by [employer]. See Compliance Statement C: [employer] Blood specimen (specimen) UPPER LIMB STRUCTURE / Unknown 03/22/2015 7:12 AM EST 03/22/2015 2:24 PM EST us Kash Tabares MD CHEMISTRY ORDERABLES Final Resu lt [employer] [address] [place] [address] * (ABNORMAL) CBC WITH AUTO DIFF (03/22/2015 7:12 AM EST) WBC 5.6 4.0 - 11.0 x10(3)/[facility] LABORATORY RBC 3.50(L) 3.80 - 5.10 x10(6)/[facility] LABORATORY Hgb 11.5(L) 12.0 - 15.6 gm/dL [facility] Hct 33.6(L) 35.7 - 45.9 % [facility] MCV 96.2 82.5 - 99.8 fL [facility] MCH 32.9 27.0 - 34.3 pg [facility] MCHC 34.2 32.1 - 35.3 gm/dL [facility] RDW 13.0 11.5 - 15.0 % [facility] Platelet 177 144 - 423 x10(3)/[facility] LABORATORY MPV 8.7 6.8 - 10.8 fL [facility] Blood specimen (specimen) UPPER LIMB STRUCTURE / Unknown 03/22/2015 7:12 AM EST 03/22/2015 7:12 AM EST us Kash Tabares MD HEMATOLOGY ORDERABLES Final Res ult [facility] [address] [place] [address] documented in this encounter Visit Diagnoses Diagnosis Encounter for supervision of normal in second trimester, unspecified - Primary Dizziness Dizziness and giddiness Weight loss Loss of weight documented in this encounter Care Teams Racquet Maker Relationship Specialty Start Date End Date Nehemias Barron MD [address] [place] [address] PCP - General 12/01/10 Easton Thompson MD [address] [place] [address] [address] [place] [address] Physician Obstetrics & Gynecology 01/29/14 documented as of this encounter
--- OUTSIDE RECORDS SUMMARY | 2024-03-07 05:08 | XMS_ITS | Encounter Summary ---
Author Organization [place] [address] Care Team Providers Care Machine Filler Name Role Phone Nehemias Barron MD Primary Care Provider [phone] Easton Thompson MD Unavailable [phone] Reason for Visit * Reason Comments Routine Visit Encounter Details Date Type Department Care Team (Latest Contact Info) Description 04/18/2015 3:50 PM EST ROUTINE FOLLOW UP OB VISIT [facility] [address] [place] [address] Kash Tabares MD [address] [facility] [address] [place] [address] Supervision of normal , second [...] Sign Reading Time Taken Comments Blood Pressure 100/60 04/18/2015 3:45 PM EST Pulse - - Temperature - - Respiratory Rate - - Oxygen Saturation - - Inhaled Oxygen Concentration - - Weight 60.3 kg (133 lb) 04/18/2015 3:45 PM EST Height 165.1 cm (5' 5 ) 04/18/2015 3:45 PM EST Body Mass Index 22.13 04/18/2015 3:45 PM EST documented in this encounter Functional [...] Progress Notes * Kash Tabares MD - 05/30/2015 7:42 AM EST No complaints, good FM, sono / precautions reviewed * Prabha Sheikh MA - 04/18/2015 3:46 PM EST Edema No Contractions No Loss of Fluid No Bleeding No 24w0d Results for orders placed or performed in visit on 04/18/15 POCT URINALYSIS DIPSTICK Result Value Ref Range Color, UA yellow Clear, Yellow, [place], Rust Clarity, UA clear Clear, Cloudy Glucose, UA neg g/dl% Bilirubin, UA neg Pos/Neg Ketones, UA neg Pos/Neg Spec Grav, UA 1.015 1.001 - 1.035 g/dl Blood, UA neg Pos/Neg pH, UA 8.0 5.0 - 8 Protein, UA neg Pos/Neg Urobilinogen, UA 0.2 0.2 - 1.0 mg/dL Leukocytes, UA neg Pos/Neg Nitrite, UA neg Pos/Neg UA Appear POC na Lot Number [id number] Expiration Date 12-25 SeriAl # na documented in this encounter Miscellaneous Notes * Patient Instructions - Kash Tabares MD - 05/30/2015 7:43 AM EST Images from the original note [...] a boy, should be discussed with your treasury specialist. Cigarette smoking during can result in low [...] . More than 200 foods, beverages, and bqox-lbz-lacwopl medications contain caffeine and have ahigh salt [...] with your doctor all medications, prescribed and yisz-kxu-wflujqr, thatyou are taking. During your visit, discuss the medications your doctor may give you duringlabor and delivery. N Never be afraid to ask your doctor or caregiver questions about your health, the progress of the , family problems, stressful situations, and recommendation for a treasury specialist, if you do nothave one. It is better to take all precautions and discuss any questions or concerns you may have during your office visits. It is a good idea to write down your questions before you visit the doctor. O Nnhk-lhd-jzpozab cough and cold remedies may contain alcohol or other ingredients that should be avoided during . Ask your caregiver about prescription, herbs or iaoz-nba-bgatfwr medicationsthat you are taking or may consider [...] Avoid scuba diving, exercise at high altitudes (czqu7790 feet), skiing, horseback riding, contact sports, etc. [...] are overweight or underweight. Your caregiver or waterworks employee can help and advise you if necessary. [...] 06/19/2012 Document Reviewed: 12/10/2009 ExitCare?? Patient Information ??2012 [employer]. documented in this encounter Plan of Treatment Not on file documented as of this encounter Procedures Procedure Name Priority Date/Time Associated Diagnosis Comments POCT URINALYSIS DIPSTICK Routine 04/18/2015 3:58 PM EST Supervision of normal , second trimester documented in this encounter Results * PREG GLUCOSE SCREEN (05/14/2015 12:15 PM EST) Preg Glucose Screen 155 mg/dL [facility] Blood specimen (specimen) UPPER LIMB STRUCTURE / Unknown 05/14/2015 12:15 PM EST 05/14/2015 12:15 PM EST us Kash Tabares MD CHEMISTRY ORDERABLES Final Resu lt [facility] [address] [place] [address] * POCT URINALYSIS DIPSTICK (04/18/2015 3:58 PM EST) Color, UA yellow Clear, Yellow, [place], Rust SEP OFFICE Clarity, UA clear Clear, Cloudy SEP OFFICE Glucose, UA neg g/dl% SEP OFFICE Bilirubin, UA neg Pos/Neg SEP OFFICE Ketones, UA neg Pos/Neg SEP geothermal powerplant supervisor Grav, UA 1.015 1.001 - 1.035 g/dl SEP OFFICE Blood, UA neg Pos/Neg SEP OFFICE pH, UA 8.0 5.0 - 8 SEP OFFICE Protein, UA neg Pos/Neg SEP OFFICE Urobilinogen, UA 0.2 0.2 - 1.0 mg/dL SEP OFFICE Leukocytes, UA neg Pos/Neg SEP OFFICE Nitrite, UA neg Pos/Neg SEP OFFICE UA Appear POC na SEP OFFICE Lot Number [id number] SEP OFFICE Expiration Date 12-25 SEP OFFICE SeriAl # na SEP OFFICE Urine specimen (specimen) 04/18/2015 3:58 PM EST us Kash Tabares MD POINT OF CARE TEST ORDERABLES F inal Result SEP OFFICE documented in this encounter Visit Diagnoses Diagnosis Supervision of normal , second trimester- Primary documented in this encounter Care Teams Machine Filler Relationship Specialty Start Date End Date Nehemias Barron MD [address] [place] [address] PCP - General 12/01/10 Easton Thompson MD [address] [place] [address] [address] [place] [address] Physician Obstetrics & Gynecology 01/29/14 documented as of this encounter
--- OUTSIDE RECORDS SUMMARY | 2024-03-07 05:08 | XMS_ITS | Encounter Summary ---
Author Organization [place] [address] Care Team Providers Care Command Post Craftsman Name Role Phone Nehemias Barron MD Primary Care Provider [phone] Easton Thompson MD Unavailable [phone] Encounter Details Date Type Department Care Team (Late st Contact Info) Description 01/15/2015 Orders Only [facility] [address] [place] [address] Arlyn Raman RMA Encounter for supervision of other normal in [...] on file documented as of this encounter Ordered Prescriptions Prescription Sig Dispense Quantity Refills Last Filled Start Date End Date PNV #28-iron fumarate-folic ac 27-1 mg Oral TabletIndications: Take 1 Tab by mouth daily for 30 days. Indications: 30 Tab 10 01/15/2015 5 documented in this encounter Plan of Treatment Not on file documented as of this encounter Visit Diagnoses Diagnosis Encounter for supervision of other normal in first trimester- Primary documented in this encounter Discontinued Medications Medication Sig Discontinue Reason Start Date End Da te PNV #28-iron fumarate-folic ac 27-1 mg Oral TabletIndications:pregn qamar Take 1 Tab by mouth daily for 30 days. Indications: Reorder 01/03/2015 01/15/2015 documented as of this encounter Care Teams Command Post Craftsman Relationship Specialty Start Date End Date Nehemias Barron MD [address] [place] [address] PCP - General 12/01/10 Easton Thompson MD [address] [place] [address] [address] [place] [address] Physician Obstetrics & Gynecology 01/29/14 documented as of this encounter
[2024-03-07 05:09] VITALS: BMI 27.1
--- OUTSIDE RECORDS SUMMARY | 2024-03-07 05:09 | XMS_ITS | Encounter Summary ---
Author Organization [place] [address] Care Team Providers Care Guide Alpine Name Role Phone Nehemias Barron MD Primary Care Provider [phone] Easton Thompson MD Unavailable [phone] Reason for Visit * Reason Onset Date Comments Medication Reaction 02/21/2014 Allergic Encounter Details Date Type Department Care Team (Late st Contact Info) Description 02/21/2014 Telephone [facility] [address] [facility] [address] [place] [address] Kash Tabares MD [address] [facility] [address] [place] [address] Medication Reaction (Allergic) Social History Tobacco Use Types Packs/Day Years [...] encounter Miscellaneous Notes * Telephone Encounter - Kash Tabares MD - 02/22/2014 5:47 PM EST ED notes reviewed, spoke to patient, still having some bleeding not as heavy as yesterday, precautions reviewed, pt understanding, path reviewed +POC. * Telephone Encounter - Davida Altamirano MA - 02/21/2014 4:07 PM EST Patient called stating that she is bleeding heavily filling 3 pads within the last hour and a half,no pain just bleeding. Patient aware Dr. Tabares not in office patient instructed to go to ED. Pt is aware * Telephone Encounter - Akila Abdi RMA - 02/21/2014 11:52 AM EST Pt is allergic to hydrocodone and acetaminophen, she was prescribed Oxycodone, she was wondering ifshe can have something else instead. She is allergic to these medications. documented in this encounter Plan of Treatment Not on file documented as of this encounter Visit Diagnoses Not on filedocumented in this encounter Care Teams Guide Alpine Relationship Specialty Start Date End Date Nehemias Barron MD [address] [place] [address] PCP - General 12/01/10 Easton Thompson MD [address] [place] [address] [address] [place] [address] Physician Obstetrics & Gynecology 01/29/14 documented as of this encounter
--- OUTSIDE RECORDS SUMMARY | 2024-03-07 05:09 | XMS_ITS | Encounter Summary ---
Author Organization [place] [address] Care Team Providers Care Actuarial Clerk Name Role Phone Nehemias Barron MD Primary Care Provider [phone] Easton Thompson MD Unavailable [phone] Reason for Visit * Reason Comments Initial Visit Pt has dizzy spel ls but when she is she actually passes out, pt states they have been gettign worse. Has been going to doctor since she was 15 and they are unable to figure out what is going on Morning Sickness Pt would like a scri pt for nausea Encounter Details Date Type Department Care Team (Latest Contact Info) Description 02/18/2014 2:30 PM EST INITIAL VISIT [facility] [address] [place] [address] Kash Tabares MD [address] [facility] [address] [place] [address] Supervision of other normal , first trimester (Primary Dx); heart tones not heard; Tobacco use in , first trimester; History of LEEP (loop electrosurgical excision procedure) of cervix complicating , first trimester; Nausea and vomiting in prior to 22 weeks gestation Social History Tobacco Use Types Packs/Day Years Used Date Smoking Tobacco: Every Day Cigarettes 0.5 7 Smokeless Tobacco: Never Comments:info refused Alcohol Use [...] Sign Reading Time Taken Comments Blood Pressure 102/60 02/18/2014 2:20 PM EST Pulse - - Temperature - - Respiratory Rate - - Oxygen Saturation - - Inhaled Oxygen Concentration - - Weight 59.3 kg (130 lb 12.8 oz) 02/18/2014 2:20 PM EST Height - - Body Mass Index 21.77 01/25/2014 4:57 AM EDT documented in this encounter Ordered Prescriptions Prescription Sig Dispense Quantity Refills Last Filled Start Date End Date ondansetron (ZOFRAN-ODT) 4 mg Oral Tablet, Rapid Dissolve Take 1 tablet by mouth every 4 hours as needed for Nausea. 20 tablet 1 02/18/2014 04/29/2014 documented in this encounter Progress Notes * Kash Tabares MD - 02/18/2014 4:45 PM EST NOB 9+5, no unusual complaints today, concerned for N/V has lost weight, no ED visits since went for pain a few wks had scan then see report PNL's nml Desires Quad / CF - may have had CF with prior OB will send for records Discussed routine PNC H/o LEEP earlier this yr with Dr. Castellanos, +margins, pap repeated today with GC No FHT audible, sent to [facility] for sono Precautions reviewed * Tabatha Stinson MA - 02/18/2014 2:23 PM EST Edema No Contractions No Loss of Fluid No Bleeding No Results for orders placed in visit on 02/18/14 POCT URINALYSIS DIPSTICK Result Value Range Color, UA Clarity, UA Glucose, UA Neg Bilirubin, UA Neg Ketones, UA Neg Spec Grav, UA 1.030 1.001 - 1.035 g/dl Blood, UA 3+ pH, UA 6.0 5.0 - 8 Protein, UA Trace Urobilinogen, UA 0.2 0.2 - 1.0 mg/dL Leukocytes, UA Neg Nitrite, UA Neg UA Appear POC Lot Number Expiration Date SeriAl # documented in this encounter Miscellaneous Notes * Patient Instructions - Tabatha Stinson MA - 02/18/2014 2:20 PM EST You may be contacted by mail [...] office and ask to speak to our ground defence officer. Call office anytime with concerns. documented in this encounter Plan of Treatment Not on file documented as of this encounter Procedures Procedure Name Priority Date/Time Associated Diagnosis Comments POCT URINALYSIS DIPSTICK Routine 02/18/2014 2:29 PM EST Supervision of other normal , first trimester documented in this encounter Results * PN US OB TRANSVAGINAL (02/18/2014 4:22 PM EST) Anatomical Region Laterality Modality Pelvis Ultrasound 02/18/2014 us Kash Tabares MD IMG ORDERABLES Final Result * POCT URINALYSIS DIPSTICK (02/18/2014 2:29 PM EST) Color, UA Clear, Yellow, [place], Rust SEP OFFICE Clarity, UA Clear, Cloudy SEP OFFICE Glucose, UA Neg g/dl% SEP OFFICE Bilirubin, UA Neg Pos/Neg SEP OFFICE Ketones, UA Neg Pos/Neg SEP central control room operator Grav, UA 1.030 1.001 - 1.035 g/dl SEP OFFICE Blood, UA 3+ Pos/Neg SEP OFFICE pH, UA 6.0 5.0 - 8 SEP OFFICE Protein, UA Trace Pos/Neg SEP OFFICE Urobilinogen, UA 0.2 0.2 - 1.0 mg/dL SEP OFFICE Leukocytes, UA Neg Pos/Neg SEP OFFICE Nitrite, UA Neg Pos/Neg SEP OFFICE UA Appear POC SEP OFFICE Lot Number SEP OFFICE Expiration Date SEP OFFICE SeriAl # SEP OFFICE Urine specimen (specimen) 02/18/2014 2:29 PM EST Kash Tabares MD POINT OF CARE TEST ORDERABLES F inal Result SEP OFFICE documented in this encounter Visit Diagnoses Diagnosis Supervision of other normal , first trimester- Primary heart tones not heard Abnormality in heart rate/rhythm, unspecified as to episode of care or not applicable Tobacco use in , first trimester History of LEEP (loop electrosurgical excision procedure) of cervix complicating , first trimester Nausea and vomiting in prior to 22 weeks gestation documented in this encounter Orders Lab Orders Without Results Count Last Ordered D ate First Ordered Date CHLAMYDIA/GC PROBE THIN PREP 1 02/18/2014 CLAIMS ANALYST CYTOLOGY REQUEST (PAP ONLY) 1 4 documented in this encounter Care Teams Actuarial Clerk Relationship Specialty Start Date End Date Nehemias Barron MD [address] [place] [address] PCP - General 12/01/10 Easton Thompson MD [address] [place] [address] [address] [place] [address] Physician Obstetrics & Gynecology 01/29/14 documented as of this encounter
--- OUTSIDE RECORDS SUMMARY | 2024-03-07 05:09 | XMS_ITS | Encounter Summary ---
Author Organization [facility] Address [address] [place] [address] Care Team Providers Care Bag Machine Set Up Operator Name Role Phone Nehemias Barron MD Primary Care Provider [phone] Easton Thompson MD Unavailable [phone] Reason for Visit * Reason Onset Date Comments Other 01/30/2014 Patient requeste d appointment at [facility] Office due to location preference. Transferred call to [facility] at [facility] Encounter Details Date Type Department Care Team (Late st Contact Info) Description 01/30/2014 Telephone [facility] Central Scheduling [address] [place] [id number] Jude Choi MD Other (Patient requested appointment at [facility] Office due to location preference. Transferred call to [facility] at [facility]) Social History Tobacco Use Types Packs/Day Years [...] encounter Miscellaneous Notes * Telephone Encounter - Marielena Fitch - 01/30/2014 1:47 PM EDT Encounter closed due to patient requesting to be scheduled at [facility]. Katerine documented in this encounter Plan of Treatment Not on file documented as of this encounter Visit Diagnoses Not on filedocumented in this encounter Care Teams Bag Machine Set Up Operator Relationship Specialty Start Date End Date Nehemias Barron MD [address] [place] [address] PCP - General 12/01/10 Easton Thompson MD [address] [place] [address] [address] [place] [address] Physician Obstetrics & Gynecology 01/29/14 documented as of this encounter
--- OUTSIDE RECORDS SUMMARY | 2024-03-07 05:09 | XMS_ITS | Encounter Summary ---
Author [place] [address] Care Team Providers Care Business Analytics Manager Name Role Phone Nehemias Barron MD Primary Care Provider [phone] Easton Thompson MD Unavailable [phone] Reason for Visit * Reason Comments Routine Visit SOB ED F/U NOO sc heduled Encounter Details Date Type Department Care Team (Latest Contact Info) Description 12/30/2014 10:40 AM EDT ROUTINE FOLLOW UP OB VISIT [facility] [address] [place] [address] Kash Tabares MD [address] [facility] [address] [place] [address] Abdominal pain in , antepartum (Primary Dx); Threatened in first trimester Social History Tobacco Use Types [...] Reading Time Taken Comments Blood Pressure 112/70 12/30/2014 10:53 AM EDT Pulse - - Temperature - - Respiratory Rate - - Oxygen Saturation - - Inhaled Oxygen Concentration - - Weight 58.7 kg (129 lb 6.4 oz) 12/30/2014 10:53 AM EDT Height - - Body Mass Index 21.53 12/29/2014 3:36 AM EDT documented in this encounter Progress Notes * Kash Tabares MD - 12/30/2014 12:34 PM EDT Acute visit today, 9+3 by LMP, s/p ED visit for threatened Ab yesterday see notes, no complaints today, now only spotting (was post coital bleeding), abd soft / nt, precautions reviewed, MFC scan ordered, has NOO later in week * Niki Fraser ABR-OE - 12/30/2014 10:53 AM EDT Edema No Contractions No Loss of Fluid No Bleeding Yes spotting Results for orders placed or performed in visit on 12/30/14 POCT URINALYSIS DIPSTICK Result Value Ref Range Color, UA Clear, Yellow, [place], Rust Clarity, UA Clear, Cloudy Glucose, UA neg g/dl% Bilirubin, UA neg Pos/Neg Ketones, UA neg Pos/Neg Spec Grav, UA 1.030 1.001 - 1.035 g/dl Blood, UA trace Pos/Neg pH, UA 6.0 5.0 - 8 Protein, UA trace Pos/Neg Urobilinogen, UA 0.2 0.2 - 1.0 mg/dL Leukocytes, UA neg Pos/Neg Nitrite, UA neg Pos/Neg UA Appear POC Lot Number Expiration Date SeriAl # documented in this encounter Miscellaneous Notes * Patient Instructions - Kash Tabares MD - 12/30/2014 12:36 PM EDT Call office anytime with concerns. documented in this encounter Plan of Treatment Not on file documented as of this encounter Procedures Procedure Name Priority Date/Time Associated Diagnosis Comments POCT URINALYSIS DIPSTICK Routine 12/30/2014 10:59 AM EDT Abdominal pain in , antepartum documented in this encounter Results * DRUGS OF ABUSE WITH REFLEX TO CONFIRMATION, URINE (12/30/2014 11:07 AM EDT) Cannabinoid Metabolite Absent 50 ng/mL [facility] Benzodiazepines Absent 200 ng/mL [facility] Cocaine Metabolite Absent 150 ng/mL [facility] Opiate 300 Absent 300 ng/mL [facility] Barbiturates Absent 200 ng/mL [facility] Amphetamines Absent 500 ng/mL [facility] Phencyclidine Absent 25 ng/mL [facility] Methadone and Metabolite Absent 300 ng/mL [facility] Oxycodone Lvl Absent 100 ng/mL [facility] 6 AM (Heroin) Absent 10 ng/mL [facility] Buprenorphine Absent 5 ng/mL [facility] Creatinine Urn 207.0 mg/dL [facility] Comment: Greater than 20: [...] vaginal pool/amniotic fluid could cause erroneous results. [facility] Urine specimen (specimen) 12/30/2014 11:07 AM EDT 12/30/2014 9:26 PM EDT Kash Tabares MD URINE ORDERABLES Final Result Performing Organization Address City/[facility]/ZIP Co de Phone Number [facility] [address] [place] [address] * URINE CULTURE (12/30/2014 11:07 AM EDT) Final Three or more bacterial species isolated from urine indicating superficial or fecal contamination Recollect if clinically indicated [facility] Urine specimen (specimen) 12/30/2014 11:07 AM EDT 12/30/2014 10:29 PM EDT Kash Tabares MD MICROBIOLOGY - GENERAL ORDERABL ES Final Result Performing Organization Address City/[facility]/ZIP Co de Phone Number [facility] [address] [place] [address] * POCT URINALYSIS DIPSTICK (12/30/2014 10:59 AM EDT) Color, UA Clear, Yellow, [place], Rust [facility] OFFICE Clarity, UA Clear, Cloudy [facility] Glucose, UA neg g/dl% [facility] Bilirubin, UA neg Pos/Neg [facility] Ketones, UA neg Pos/Neg SEP scientist engineer Grav, UA 1.030 1.001 - 1.035 g/dl [facility] Blood, UA trace Pos/Neg [facility] OFF[facility] pH, UA 6.0 5.0 - 8 [facility] Protein, UA trace Pos/Neg [facility] Urobilinogen, UA 0.2 0.2 - 1.0 mg/dL [facility] Leukocytes, UA neg Pos/Neg [facility] Nitrite, UA neg Pos/Neg SEP OFFICE UA Appear POC SEP OFFICE Lot Number SEP OFFICE Expiration Date SEP OFFICE SeriAl # SEP OFFICE Urine specimen (specimen) 12/30/2014 10:59 AM EDT us Kash Tabares MD POINT OF CARE TEST ORDERABLES F inal Result [facility] OFFICE documented in this encounter Visit Diagnoses Diagnosis Abdominal pain in , antepartum- Primary Other specified complication, antepartum Threatened in first trimester Threatened , unspecified as to episode of care documented in this encounter Historical Medications * This list may reflect changes made after this encounter. acetaminophen Oral TabIndications:Ab dominal pain in , antepartum Take 325 mg by mouth every 4 hours as needed for Pain. 07/21/2015 added in this encounter Care Teams Business Analytics Manager Relationship Specialty Start Date End Date Nehemias Barron MD [address] [place] [address] PCP - General 12/01/10 Easton Thompson MD [address] [facility] [address] [place] [address] Physician Obstetrics & Gynecology 01/29/14 documented as of this encounter
--- OUTSIDE RECORDS SUMMARY | 2024-03-07 05:09 | XMS_ITS | Encounter Summary ---
Author Organization [facility] Address [address] [place] [address] Care Team Providers Care Business Systems Advisor Name Role Phone Nehemias Barron MD Primary Care Provider [phone] Easton Thompson MD Unavailable [phone] Reason for Visit * Reason Comments Consult Abnormal Platelet co unt Fatigue Encounter Details Date Type Department Care Team (Late st Contact Info) Description 02/04/2014 2:30 PM EDT Office Visit [facility] Med Oncology [address] [place] [address] Edmund Crabtree MD Ecchymosis (Primary Dx); Lymphadenopathy, posterior cervical Social History Tobacco Use Types Packs/Day Years [...] Sign Reading Time Taken Comments Blood Pressure 111/70 02/04/2014 2:39 PM EDT Pulse 112 02/04/2014 2:39 PM EDT Temperature 36.3 ??C (97.3 ??F) 02/04/2014 2:39 PM ED T Respiratory Rate 16 02/04/2014 2:39 PM EDT Oxygen Saturation - - Inhaled Oxygen Concentration - - Weight 58.8 kg (129 lb 9.6 oz) 02/04/2014 2:39 P M EDT Height - - Body Mass Index 21.57 01/25/2014 4:57 AM EDT documented in this encounter Progress Notes * Edmund Crabtree MD - 02/04/2014 3:18 PM EDT Images from the original note were not included. History of Present Illness: Bonny Gautam is a 23 y.o. female presenting with a history of ecchymosis - mostly of lower legs. Chief Complaint Patient presents with ??? Consult Abnormal Platelet count ??? Fatigue . She is a EDC 09/16/14 - now with a history of lower extremity ecchymosis - but the platelet count, and coagulation screen (PT,PTT, and platelet function studies) are normal She has no history of nose bleeds, significant gum bleeding, bleeding with dental extractions, or bleeding with operations (skin bx) - No family history of bleeding or bruising. She has a history of psoriasis and acne - has some mild shoddy posterior lymphadenopathy - present for several months - not changing and not helped with oral antibiotics. Past Medical History: Past Medical History Diagnosis Date ??? Knee injury chip in left knee but has problems with both knee's ??? 06/2011 ??? 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 RA (rheumatoid arthritis) ??? Melanoma in situ of back 06/2012 ??? Dizziness occassional will black out, [...] office before surgery ??? Psoriasis ??? Psoriasis Past Surgical History: Past Surgical History Procedure Laterality Date ??? Appendectomy age 7 ??? Cervix biopsy 2010, 05/29/2013 ??? Skin cancer excision 06/2012 melanoma back ??? Leep N/A 06/27/2013 LOOP EXCISION PROCEDURE (LEEP); Surgeon: Sachin Castellanos MD; Location: [facility] MAIN OR; Service: Gynecology Allergies: Allergies Allergen Reactions ??? Sulfa (Sulfonamide Antibiotics) Swelling and Rash throat closes up, rash, and red everywhere Medications: Current Outpatient Prescriptions Medication ??? amoxicillin-clavulanate (AUGMENTIN) 875-125 mg Oral Tablet ??? PNV Comb.[id number],Carbonyl-FA (PRENATABS RX) 29 mg iron- 1 mg Oral Tablet No current facility-administered medications for this visit. Social History: History Substance Use Topics ??? Smoking status: Current Every Day Smoker -- 0.50 packs/day for 7 years Types: Cigarettes ??? Smokeless tobacco: Never Used Comment: info refused ??? Alcohol Use: No Family History: Family History Problem Relation Age of Onset ??? Cancer Maternal Grandmother melanoma ??? Anesth Problems Neg Hx Pertinent Labs: Lab Results Component Value Date WBC 3.8* 01/29/2014 WBC 4.7 01/25/2014 WBC 4.6 01/22/2014 HGB 12.2 01/29/2014 HGB 12.3 01/25/2014 HGB 12.1 01/22/2014 PLT 168 01/29/2014 PLT 173 01/25/2014 PLT 178 01/22/2014 Lab Results Component Value Date NA 138 08/18/2012 NA 138 08/18/2012 NA 136 02/11/2011 Lab Results Component Value Date K 4.2 08/18/2012 K 3.6 08/18/2012 K 3.5 02/11/2011 Lab Results Component Value Date CREATININE 0.8 08/18/2012 CREATININE 0.9 08/18/2012 CREATININE 0.6 02/11/2011 No results found for this basename: ALT No results found for this basename: AST No results found for this basename: LDH Review of Systems: Reviewed above. Physical Exam: General Appearance: Alert, cooperative, no distress, appears stated age Head: Normocephalic, without obvious abnormality, atraumatic Eyes: PERRL, conjunctiva/corneas clear, EOM's intact Ears: Normal hearing Nose: Nares normal, septum midline,mucosa normal, no drainage or sinus tenderness Throat: Lips, mucosa, and tongue normal; teeth and gums normal Neck: Supple, symmetrical, trachea midline, no adenopathy; thyroid: not enlarged, symmetric, no tenderness/mass/nodules; no carotid bruit or JVD Back: Symmetric, no curvature, ROM normal, no CVA tenderness Lungs: Clear to auscultation bilaterally, respirations unlabored Breasts: deferred Heart: Regular rate and rhythm, S1 and S2 normal, no murmur, rub, or gallop Abdomen: Soft, non-tender, bowel sounds active all four quadrants, no masses, no organomegaly Pelvic: Deferred Extremities: Extremities normal, atraumatic, no cyanosis or edema Pulses: 2+ and symmetric Skin: Around the neck line in the back is resolving acne - there is no ecchymosis seen. Lymph nodes: Cervical, supraclavicular, and axillary nodes normal but she has some bilateral shoddyposterior cervical nodes - smaller than a pea Neurologic: Normal Assessment and Plan: 1. Ecchymosis - not present at this exam - with a 30 month daughter I suspect that previous findings were trauma - he past coag history and family history is negative and her coag screen is normal. 2. Minimal lymphadenopathy - do not suspect neoplasm - most likely secondary to previous skin infections 3. Borderline WBC - her WBC is 3.8 for now would just watch. The borderline WBC may be secondary tothe recent antibiotic - and should improve when the antibiotic is stopped. During her OB visits - her WBC will be repeated - so for now no follow up unless the white count gets worse. documented in this encounter Plan of Treatment Not on file documented as of this encounter Visit Diagnoses Diagnosis Ecchymosis- Primary Other specified circulatory system disorders Lymphadenopathy, posterior cervical documented in this encounter Historical Medications * This list may reflect changes made after this encounter. amoxicillin-clavu lanate (AUGMENTIN) 875-125 mg Oral Tablet Take 875 mg by mouth 2 times daily. 02/19/2014 added in this encounter Care Teams Business Systems Advisor Relationship Specialty Start Date End Date Nehemias Barron MD [address] [facility] [place] [address] PCP - General 12/01/10 Easton Thompson MD [address] [place] [address] [address] [place], [place] [address] Physician Obstetrics & Gynecology 01/29/14 documented as of this encounter
--- OUTSIDE RECORDS SUMMARY | 2024-03-07 05:09 | XMS_ITS | Encounter Summary ---
Author Organization [place] [address] Care Team Providers Care Needle Leader Name Role Phone Nehemias Barron MD Primary Care Provider [phone] Easton Thompson MD Unavailable [phone] Reason for Visit * Reason Comments Amenorrhea Encounter Details Date Type Department Care Team (Late st Contact Info) Description 01/29/2014 2:30 PM EDT INITIAL VISIT [facility] [address] [place] [address] Tabatha Robb RMA Amenorrhea (Primary Dx) Social History Tobacco Use Types [...] - Inhaled Oxygen Concentration - - Weight 60.7 kg (133 lb 12.8 oz) 01/29/2014 2:41 PM EDT Height - - Body Mass Index 22.27 01/25/2014 4:57 AM EDT documented in this encounter Progress Notes * Tabatha Stinson MA - 01/29/2014 2:42 PM EDT Patient was given New OB Orientation materials including Pre Registration Education information with worksheets, Guidelines for OB Patients, Dental Letter, Medications Safe in Work Sheet, Vaccine information. Patient advised to review all materials given. Pt given Quad & CF Screen information Pt accompanied by herself at visit Obstetric History: Recurrent Loss/Stillbirth No Gestational Diabetes No History of Infertility No Rh Sensitized no OCP's at time of conception No Symptoms since LMP: Nausea/Vomiting Yes Fatigue Yes Cramps Yes Headaches No Dizziness Yes Breast Tenderness Yes Movement No Psychosocial History: Paternity Questions: No Eating Disorders: No Cultural/Spiritual Needs: No Learning /Nutritional Needs: No Trauma/Domestic Violence/Sexual Abuse: No Psychiatric: No Depression: Yes- pt states had DEPRESSION WITH DAUGHTER Hospitalized for Depression: No H/O Suicide Attempt: No Meds taken for depression: No Social Service Referral Made/Under 18: No Counseling/Referral: No Surgical History; Surgeries:Yes- see hx Hospitalizations No Anesthesia ComplicationsNo Sexual History: Sexual Transmitted Diseases No Treated for STD's No Hepatitis B Immunized Yes High Risk for Hepatitis B No Exposure to Hepatitis/HIV No Currently Sexually Active Yes IV drug use No Age at first intercourse: 17 Number of partners in the last 6 months: 1 documented in this encounter Miscellaneous Notes * Patient Instructions - Tabatha Stinson MA - 01/29/2014 2:47 PM EDT You may be contacted by [...] office and ask to speak to our office machinery or equipment installer. You will need to have NEW OB BLOOD WORK COMPLETED before your next scheduled appointment. If this is not completed, you may be asked to reschedule your appointment. documented in this encounter Plan of Treatment Not on file documented as of this encounter Results * URINE CULTURE (01/29/2014 3:44 PM EDT) Final No growth at [address] [facility] Urine specimen (specimen) URINE SPECIMEN COLLECTION, CLEAN CATCH / Unknown 01/29/2014 3:44 PM EDT 01/29/2014 7:53 PM EDT Cathie Pena DO MICROBIOLOGY - GEN ERAL ORDERABLES Final Result Performing Organization Address City/[facility]/ZIP Co de Phone Number [facility] [address] [place] [address] * ANTIBODY SCREEN IGG (01/29/2014 3:44 PM EDT) Pathologist [facility] ABSC IgG Int Negative [facility] Blood specimen (specimen) UPPER LIMB STRUCTURE / Unknown 01/29/2014 3:44 PM EDT 01/29/2014 7:41 PM EDT Cathie Pena DO BLOOD BANK ORDERAB LES Final Result Performing Organization Address [facility] Co de Phone Number [facility] [address] [place] [address] * (ABNORMAL) CBC WITH AUTO DIFF (01/29/2014 3:44 PM EDT) Pathologist [facility] [place] WBC 3.8(L) 4.0 - 11.0 x10(3)/mcL [facility] RBC 3.86 3.80 - 5.10 x10(6)/mcL [facility] Hgb 12.2 12.0 - 15.6 gm/dL [facility] Hct 36.0 35.7 - 45.9 % [facility] MCV 93.2 82.5 - 99.[address] [facility] MCH 31.7 27.0 - 34.[address] [facility] MCHC 34.0 32.1 - 35.3 gm/dL [facility] RDW 11.9 11.5 - 15.0 % [facility] Platelet 168 144 - 423 x10(3)/mcL [facility] MPV 8.9 6.8 - 10.[address] [facility] Blood specimen (specimen) UPPER LIMB STRUCTURE / Unknown 01/29/2014 3:44 PM EDT 01/29/2014 3:44 PM EDT us Cathie Pena DO HEMATOLOGY ORDERAB LES Final Result Performing Organization Address [facility] Co de Phone Number [facility] [address] [place] [address] * ABORH (01/29/2014 3:44 PM EDT) Pathologist [facility] [place] ABOR Int AB POS [facility] Blood specimen (specimen) UPPER LIMB STRUCTURE / Unknown 01/29/2014 3:44 PM EDT 01/29/2014 7:41 PM EDT us Cathie Pena DO BLOOD BANK ORDERAB LES Final Result Performing Organization Address [facility] de Phone Number [facility] [address] [place] [address] * RUBELLA ANTIBODY IGG (01/29/2014 3:44 PM EDT) Pathologist [facility] Rubella IgG 6.[address] [facility] Comment: < 0.90 - Negative [...] specimen (specimen) UPPER LIMB STRUCTURE / Unknown 01/29/2014 3:44 PM EDT 01/29/2014 7:41 PM EDT us Cathie Pena DO IMMUNOLOGY ORDERAB LES Final Result Performing Organization Address [facility] Co de Phone Number [facility] [address] [place] [address] * SYPHILIS SCREEN WITH REFLEX RPR QUANT (01/29/2014 3:44 PM EDT) Pathologist [facility] [place] TREP(SYPHILIS) AB INDEX <0.10 <=1.[address] [facility] Comment: <0.90 - Negative 0.90 to 1.00 - Equivocal ?? Patients with equivocal results should be retested in 7-14 days. >=1.10 - Positive NOTE: ??All equivocal and positive results will be reflexed to Quantitative Non-Treponemal(RPR)test. Blood specimen (specimen) 01/29/2014 3:44 PM EDT 01/29/2014 7:41 PM EDT us Cathie Pena DO CHEMISTRY ORDERABL ES Final Result Performing Organization Address [facility] Co de Phone Number [facility] [address] [place] [address] * HIV AG/AB (01/29/2014 3:44 PM EDT) HIV Ag/AB Non-Reactiv e [facility] Blood specimen (specimen) 01/29/2014 3:44 PM EDT 01/29/2014 7:41 PM EDT us Cathie Pena DO IMMUNOLOGY ORDERAB LES Final Result Performing Organization Address [facility] de Phone Number [facility] [address] [place] [address] * HEPATITIS B SURFACE ANTIGEN (01/29/2014 3:44 PM EDT) Hep Bs Ag Negative Negative [facility] Blood specimen (specimen) UPPER LIMB STRUCTURE / Unknown 01/29/2014 3:44 PM EDT 01/29/2014 7:41 PM EDT us Cathie Pena DO CHEMISTRY ORDERABL ES Final Result Performing Organization Address [facility] de Phone Number [facility] [address] [place] [address] documented in this encounter Visit Diagnoses Diagnosis Amenorrhea- Primary Absence of menstruation documented in this encounter Care Teams Needle Leader Relationship Specialty Start Date End Date Nehemias Barron MD [address] [place] [address] PCP - General 12/01/10 Easton Thompson MD [address] [place] [address] [address] [place] [address] Physician Obstetrics & Gynecology 01/29/14 documented as of this encounter
--- OUTSIDE RECORDS SUMMARY | 2024-03-07 05:09 | XMS_ITS | Encounter Summary ---
Author Organization [place] [address] Care Team Providers Care Veterinary Toxicologist Name Role Phone Nehemias Barron MD Primary Care Provider [phone] Easton Thompson MD Unavailable [phone] Reason for Visit * Reason Comments Abdominal Pain Began couple days ag o with lower back pain, tonight began with sharp lower abdominal pain. states , lmp 10/24. Has not yet been seen by beach attendant. [id number] Encounter Details Date Type Department Care Team (Late st Contact Info) Description 12/07/2014 4:19 AM EDT - 12/07/2014 6:25 AM EDT [facility] [address] [place] [address] Mario Smith MD [address] [place], [place] [id number] Lower abdominal pain (Primary Dx); Discharge Disposition: Home or Self Care Social [...] Sign Reading Time Taken Comments Blood Pressure 109/63 12/07/2014 4:20 AM EDT Pulse 108 12/07/2014 4:20 AM EDT Temperature 36.9 ??C (98.5 ??F) 12/07/2014 4:20 AM ED T Respiratory Rate 16 12/07/2014 4:20 AM EDT Oxygen Saturation 99% 12/07/2014 4:20 AM EDT Inhaled Oxygen Concentration - - Weight 65.8 kg (145 lb) 12/07/2014 4:20 AM EDT Height 165.1 cm (5' 5 ) 12/07/2014 4:20 AM EDT Body Mass Index 24.13 12/07/2014 4:20 AM EDT documented in this encounter Discharge Instructions * Discharge Instructions* Mario Smith MD - 12/07/2014 6:21 AM EDT Please contact one of the following offices for follow up: ?? [facility] ?? [facility] ?? [facility] ?? [facility] ?? [facility] ?? [facility] OB Option #1 then Option #3 ?? [facility] OB Option #1 then Option #5 ?? [facility] OB Option #1 then Option #7 Return to the emergency department for vaginal bleeding, severe abdominal pain, inability to take antibiotics, and/or significant worsening of her presenting symptoms. documented in this encounter Medications at Time of Discharge cephALEXin (KEFLEX) 500 mg Oral Capsule Take 1 Cap by mouth every 8 hours for 7 days. 21 Cap 0 12/07/2014 5 malathion (OVIDE) 0.5 % Top LotionIndication s:Head lice Apply topically See Admin Instructions. See admin instructions. 1 Bottle 1 04/29/2014 6 documented as of this encounter Ordered Prescriptions Prescription Sig Dispense Quantity Refills Last Filled Start Date End Date cephALEXin (KEFLEX) 500 mg Oral Capsule Take 1 Cap by mouth every 8 hours for 7 days. 21 Cap 0 12/07/2014 12/14/2014 documented in this encounter Discharge Disposition Disposition Code Departure Means Destination Home or Self Shelter documented in this encounter ED Notes * Radha Wild RN - 12/07/2014 5:20 AM EDT Pelvic exam per md with rn assist. * Mario Smith MD - 12/07/2014 4:35 AM EDT [facility] Emergency Medicine Note Date of Service: ?12/07/2014 Reason for Visit: Abdominal Pain Patient History HPI: Bonny Olivares is a 24 y.o. female approximately 6-7 weeks by last menstrual period who presents to the emergency department with complaints of abdominal pain. The patient reports symptoms for about 2 days. She complains of sharp abdominal pain. This is located at the lower quadrants bilaterally. There is intermittent in nature. It is rated as moderate to severe in terms of intensity. It has no particular associated factors. The patient denies any nausea, vomiting, dysuria, or hematuria. She has not had care for this . She attempted to treat her symptoms at home bytaking ibuprofen. She reported no relief. PMH: Nursing notes reviewed PSH: Nursing notes reviewed FH: Nursing notes reviewed MEDS: Nursing notes and chart reviewed ALLERGIES: Nursing notes and chart reviewed Past Medical History Diagnosis Date ??? Knee injury chip in left knee but has problems with both knee's ??? 06/2011 ??? 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 RA (rheumatoid arthritis) ([facility]) ??? Melanoma in situ of back ([facility]) 06/2012 ??? Dizziness occassional will black out, [...] PROCEDURE (LEEP); Surgeon: Sachin Castellanos MD; Location: [facility] MAIN OR; Service: Gynecology ??? Dilation and curettage of uterus N/A 02/20/2014 DILATION & CURETTAGE SUCTION EVACUATION FOR MISSCARRIAGE ; Surgeon: Kash Tabares MD; Location: [facility] MAIN OR; Service: Gynecology Bonny Olivares @[email or web address]@ Discharge Medication List as of 12/07/2014 6:22 AM CONTINUE these medications which have NOT CHANGED Details malathion (OVIDE) 0.5 % Top Lotion Apply topically See Admin Instructions. See admin instructions.,Topical, SEE ADMIN INSTRUCTIONS Starting 04/29/2014, Until Discontinued, Disp-1 Bottle, R-1, Normal Allergies: Allergies as of 12/07/2014 - Verified 12/07/2014 Allergen Reaction Noted ??? Sulfa (sulfonamide antibiotics) Swelling and Rash 06/27/2009 Review of Systems ROS: Pertinent positive and negative findings as documented in the HPI otherwise all other systems were reviewed and were negative. Physical Exam Filed Vitals: 12/07/14 0420 BP: 109/63 Pulse: 108 Temp: 98.5 ??F (36.9 ??C) Resp: 16 SpO2: 99% General: Well-developed, well-nourished, no acute distress, cooperative to physical examination HEENT: Head atraumatic, pupils equal round and reactive to light, extraocular movements intact, sclera clear, mucus membranes moist, oropharynx nonerythematous Neck: Supple, no lymphadenopathy Pulmonary: Clear to auscultation bilaterally, no wheezes, rhonchi, or rales Cardiac: Regular rate and rhythm, S1S2, no rubs, or gallops Abdomen: Soft, nontender, nondistended, no rebound and no guarding Musculoskeletal: No obvious deformities, no tenderness to palpation Vascular: 2+ radial pulses bilaterally Skin: Warm, dry, well perfused, no rashes Neuro: Alert and oriented x4, speech is clear and intact without dysarthria Psych: Appropriate mood and affect : Normal-appearing external female genitalia, white discharge, tenderness with cervical motion, no adnexal fullness, cervical os closed Diagnostic Studies Results for orders placed or performed during the hospital encounter of 12/07/14 URINALYSIS Result Value Ref Range UA Color Yellow UA Appear Slightly Cloudy (A) Clear UA Glucose Negative Negative UA Ketones Negative Negative UA Blood Moderate (A) Negative UA pH 6.5 5.0 - 8.0 UA Protein 30 mg/dl (A) Negative UA Urobilinogen 0.2 E.U./dL <=1 E.U./dL UA Nitrite Negative Negative UA Leuk Est Small (A) Negative UA Spec Grav 1.020 1.001 - 1.035 UA WBC TNTC (A) 0 - 4 /HPF UA RBC 5-10 (A) 0 - 3 /HPF UA Bacteria 1+ HUMAN CHORIONIC GONADOTROPIN QUANTITATIVE Result Value Ref Range hCG Quant 1227 mIU/mL Emergency Department Procedures 986.58 EARLY ULTRASOUND PROCEDURE NOTE: Performed By: Mario Smith MD Consent: The patient provided verbal consent for this procedure. Indication: Abdominal pain A limited, bedside pelvic ultrasound was performed using a transvaginal probe. The medical necessity was to evaluate for signs of an intrauterine versus ectopic . The structures studied werethe uterus and its contents, bladder, ovaries, vesicouterine space, and rectouterine space. Pertinent images have been saved in the chart. The patient tolerated the procedure well. Complications: None Findings: No IUP Medical Decision Making Bonny Olivares is a 24 y.o. female approximately 6-7 weeks by last menstrual period who presented to the emergency department with complaints of abdominal pain. All care plans were discussed andagreed upon. Based upon history and physical examination, there was concern for ectopic , urinary tractinfection, sexually transmitted infection, or miscarriage. Laboratory analysis was collected. Urinalysis was concerning for infection. Beta hCG level was 1200. Given this, the patient will need follow-up beta hCG level imaging via obstetrics. Her abdominal pain is likely related to urinary tract infection. Risks, benefits, and alternatives were discussed. The patient was found to be hemodynamically stable and afebrile. They were well appearing during clinical evaluation. As such, the patient was deemed a good candidate for continued management in the outpatient setting. The patient was prescribed Keflex. She was referred to obstetrics. She was given strict return precautions. She verbalized understanding. At this time the patient has been deemed safe for discharge. My customary discharge instructions including strict return precautions for worsening or new symptoms have been communicated. Summary of Treatment in ED: Medications acetaminophen (TYLENOL) tablet 1,000 mg (1,000 mg Oral Given 12/07/14 0449) Impression 1. Lower abdominal pain 2. Mario Smith MD MS This chart was completed using voice recognition technology and may contain unintended errors Mario Smith MD 12/07/14 0644 documented in this encounter Plan of Treatment Scheduled Orders Name Type Priority Associated Diagnoses Orde r Schedule HUMAN CHORIONIC GONADOTROPIN QUANTITATIVE Lab Routine Lower abdominal pain 1 Occurrences starting 12/07/2014 until 12/08/2015 documented as of this encounter Procedures Procedure Name Priority Date/Time Associated Diagnosis Comments CHLAMYDIA/GC BY TMA STAT 12/07/2014 5 :34 AM EDT HUMAN CHORIONIC GONADOTROPIN QUANTITATIVE STAT 12/07/2014 5:11 AM EDT URINALYSIS STAT 12/07/2014 4:30 AM EDT documented in this encounter Results * CHLAMYDIA/GC BY TMA (12/07/2014 5:34 AM EDT) [facility] Chlamydia trachomatis Negative [facility] Neisseria gonorrhoeae Negative [facility] Comment: Testing methodology is reserve officer mediated amplification (TMA) using the Aptima Combo 2 assay from [employer]. A negative result does not completely rule [...] characteristics of this test were validated by [facility]. This assay is FDA cleared to test the following specimens: clinician-collected endocervical, vaginal and male urethral swab specimens, patient collected vaginal specimens within a clinic setting, Thin Prep Specimens in PreservCyt Solution, and first-stream, unpreserved male urine specimens. Testing on female urine is not FDA approved by this methodology, but has been developed and validated by the [facility] laboratory. ??Detailed methodology is available upon request. Vaginal 12/07/2014 5:34 AM EDT 12/07/2014 3:11 PM EDT us Mario Smith MD MICROBIOLOGY - GENERAL ORDERABLE S Final Result [facility] [address] [place] [address] * HUMAN CHORIONIC GONADOTROPIN QUANTITATIVE (12/07/2014 5:11 AM EDT) [facility] hCG Quant 1,227 mIU/mL [facility] Blood specimen (specimen) UPPER LIMB STRUCTURE / Unknown 12/07/2014 5:11 AM EDT 12/07/2014 5:11 AM EDT us Mario Smith MD CHEMISTRY ORDERABLES Final Resul t Performing Organization Address City/[facility]/ZIP Co de Phone Number [facility] [address] [place] [address] * (ABNORMAL) URINALYSIS (12/07/2014 4:30 AM EDT) [facility] UA Color Yellow [facility] UA Appear Slightly Cloudy(A) Clear [facility] UA Glucose Negative Negative [facility] UA Ketones Negative Negative [facility] UA Blood Moderate(A) Negative [facility] UA pH 6.5 5.0 - 8.0 [facility] Comment:Reference range kp d for random specimens only. UA Protein 30 mg/dl(A) Negative [facility] UA Urobilinogen 0.2 E.U./dL <=1 E.U./dL [facility] UA Nitrite Negative Negative [facility] UA Leuk Est Small(A) Negative [facility] UA Spec Grav 1.020 1.001 - 1.035 [facility] Comment:Reference range kp d for random specimens only. UA WBC TNTC(A) 0 - 4 /HPF [facility] UA RBC 5-10(A) 0 - 3 /HPF [facility] UA Bacteria 1+ [facility] Urine specimen (specimen) URINE SPECIMEN COLLECTION, CLEAN CATCH / Unknown 12/07/2014 4:30 AM EDT 12/07/2014 4:30 AM EDT Mraio Smith MD URINE ORDERABLES Final Result [facility] [address] [place] [address] documented in this encounter Visit Diagnoses Diagnosis Lower abdominal pain- Primary Abdominal pain, other specified site documented in this encounter Administered Medications Inactive Administered Medications - up to 1 most recent administrations Medication Order MAR Action Action Date Dose Rate Site acetaminophen (TYLENOL) tablet 1,000 mg 1,000 mg, Oral, ONCE, 1 dose, On 12/07/14 at 0445, Maximum adult dose of acetaminophen is 4000 mg from all sources in 24 hours. Given 12/07/2014 4:49 AM EDT 1,000 mg documented in this encounter Active and Recently Administered Medications Times are shown in EDT. Scheduled Medication Order 12/05/2014 12/06/2014 12/07/2014 acetaminophen (TYLENOL) tablet 1,000 mg (COMPLETED) 1,000 mg, Oral, ONCE, 1 dose, On 12/07/14 at 0445, Maximum adult dose of acetaminophen is 4000 mg from all sources in 24 hours. 0449 (Given - Provid er: Radha Wild RN) documented in this encounter Orders Nursing Count Last Ordered Date First Orde red Date SET UP FOR PELVIC EXAM 1 12/07/2014 documented in this encounter Care Teams Veterinary Toxicologist Relationship Specialty Start Date End Date Nehemias Barron MD [address] [facility] [id number] PCP - General 12/01/10 Easton Thompson MD [address] [place] [address] [address] [place] [address] Physician Obstetrics & Gynecology 01/29/14 documented as of this encounter
--- OUTSIDE RECORDS SUMMARY | 2024-03-07 05:09 | XMS_ITS | Encounter Summary ---
Author Organization [place] [address] Care Team Providers Care Lunchroom Mother Name Role Phone Nehemias Barron MD Primary Care Provider [phone] Easton Thompson MD Unavailable [phone] Reason for Visit * Reason Onset Date Comments Menorrhagia 04/02/2014 Encounter Details Date Type Department Care Team (Late st Contact Info) Description 04/02/2014 Telephone [facility] [address] [place] [id number] Akila Field, RMA Menorrhagia Social History Tobacco Use Types Packs/Day Years [...] encounter Miscellaneous Notes * Telephone Encounter - Shannan Huntley MA - 04/02/2014 4:05 PM EST Patient aware. Will put on a pad and let us know how her flow is in an hour. * Telephone Encounter - Cathie Pena DO - 04/02/2014 3:55 PM EST Please let patient know the first menses after a miscarriage/D&C can be heavier than her norm. If she is bleeding heavier than 1 pad/hour I would refer her to the ER for evaluation. If she's bleeding heavily but <1pad/hour then she can be seen in office for evaluation * Telephone Encounter - Akila Abdi RMA - 04/02/2014 2:52 PM EST Pt had D&C 02/[address] Tabares, this is her first period since the surgery she started two weeksago, can be heavy at times. She has cramping that comes and goes, no nausea or fever. She is not using pads she uses regular tampons, and bleeds through every half an hour to an hour. Please advise. documented in this encounter Plan of Treatment Not on file documented as of this encounter Visit Diagnoses Not on filedocumented in this encounter Care Teams Lunchroom Mother Relationship Specialty Start Date End Date Nehemias Barron MD [address] [place] [address] PCP - General 12/01/10 Easton Thompson MD [address] [place] [address] [address] [place] [address] Physician Obstetrics & Gynecology 01/29/14 documented as of this encounter
--- OUTSIDE RECORDS SUMMARY | 2024-03-07 05:09 | XMS_ITS | Encounter Summary ---
Author Organization [facility] [place] [address] Care Team Providers Care Screening Representative Name Role Phone Nehemias Barron MD Primary Care Provider Easton Thompson MD Unavailable [phone] Reason for Visit * Reason Comments Vaginal Bleeding Pt had D & C yesterd ay, now c/o heavy vaginal bleeding. OBGYN sent pt to ED. Encounter Details Date Type Department Care Team (Late st Contact Info) Description 02/21/2014 5:38 PM EST - 02/21/2014 7:17 PM EST [facility] [address] [facility] [place] [address] Raquel Covarrubias MD [address] [place] [id number] Vaginal bleeding (Primary Dx); S/P D&C (status post dilation and curettage) Discharge Disposition: Home or Self Care Social [...] Sign Reading Time Taken Comments Blood Pressure 104/56 02/21/2014 5:44 PM EST Pulse 100 02/21/2014 5:44 PM EST Temperature 36.6 ??C (97.8 ??F) 02/21/2014 5:44 PM ES T Respiratory Rate 20 02/21/2014 5:44 PM EST Oxygen Saturation 100% 02/21/2014 5:44 PM EST Inhaled Oxygen Concentration - - Weight - - Height - - Body Mass Index - - documented in this encounter Discharge Instructions * Discharge Instructions* Zara Aviles APRN - 02/21/2014 7:03 PM EST Rest. Drink plenty of fluids. Superinfected for nausea/vomiting. Continue oxycodone as prescribed for pain. Use his medication sparingly. Do not drive while taking oxycodone. Return for increased pain, fever, increased bleeding, repeated vomiting or new or worsening concerns. * Attachments The following attachments cannot be sent through Care Everywhere. * PELVIC REST (FRENCH) documented in this encounter Ordered Prescriptions Prescription Sig Dispense Quantity Refills Last Filled Start Date End Date ondansetron (ZOFRAN ODT) 4 mg Oral Tablet, Rapid Dissolve Take 1 tablet by mouth every 6 hours as needed for Nausea. 12 tablet 0 02/21/2014 04/29/2014 documented in this encounter Discharge Disposition Disposition Code Departure Means Destination Home or Self Residential documented in this encounter ED Notes * Zara Aviles APRN - 02/21/2014 5:58 PM EST CHIEF COMPLAINT Chief Complaint Patient presents with ??? Vaginal Bleeding Pt had D & C yesterday, now c/o heavy vaginal bleeding. OBGYN sent pt to ED. HPI Bonny Gautam is a 23 y.o. female who presents to the emergency department For evaluation of heavy vaginal bleeding since around 11:00 this morning. Patient states she had a D&C performed yesterday afternoon and was told that some spotting could be normal and states since 11 AM she has bled through 3-4 pads an hour. Patient states her 2-1/2-year-old daughter jumped on her between 10:30 and 1045 intraorally thereafter she began having heavy vaginal bleeding. She denies fever or chills. States she did try to take one of the oxycodone pills prescribed to her for pain and vomited up the tablet. She rates her current discomfort as a 7-8/10. Describes her pain as a constant, dull, crampy pain to her lower abdomen. Denies alleviating factors. REVIEW OF SYSTEMS See HPI for further [...] ??? Psoriasis ??? Psoriasis ??? Bronchitis, chronic ??? Headache(784.0) ??? Depression ppd ??? Motion sickness ??? Cancer melanoma back FAMILY HISTORY Family History Problem Relation Age of Onset ??? Cancer Maternal Grandmother melanoma ??? Anesth Problems Neg Hx SOCIAL HISTORY History Social History ??? Marital Status: Spouse Name: N/A Number of Children: N/A ??? Years of Education: N/A Social History Main Topics ??? Smoking status: Current Every Day Smoker -- 0.50 packs/day for 8 years Types: Cigarettes ??? Smokeless tobacco: Never Used Comment: info refused ??? Alcohol Use: No ??? Drug Use: No ??? Sexual Activity: Yes Partners: Male Other Topics Concern ??? None Social History Narrative ??? None SURGICAL HISTORY Past Surgical History Procedure Laterality Date ??? Appendectomy age 7 ??? Cervix biopsy 2010, 05/29/2013 ??? Skin cancer excision 06/2012 melanoma back ??? Leep N/A 06/27/2013 LOOP EXCISION PROCEDURE (LEEP); Surgeon: Sachin Castellanos MD; Location: [facility] MAIN OR; Service: Gynecology ??? Dilation and curettage of uterus N/A 02/20/2014 DILATION & CURETTAGE SUCTION EVACUATION FOR MISSCARRIAGE ; Surgeon: Kash Tabares MD; Location: [facility] MAIN OR; Service: Gynecology CURRENT MEDICATIONS Current Outpatient Rx Name Route Sig Dispense Refill ??? oxyCODONE-acetaminophen (PERCOCET) 5-325 mg Oral Tablet Oral Take 1 tablet by mouth every 4 hours as needed for Pain. 15 tablet 0 ??? ondansetron (ZOFRAN-ODT) 4 mg Oral Tablet, Rapid Dissolve Oral Take 1 tablet by mouth every 4 hours as needed for Nausea. 20 tablet 1 ??? PNV Comb.Ko82-Ubtr,Carbonyl-FA (PRENATABS RX) 29 mg iron- 1 mg Oral Tablet Oral Take 1 tablet by mouth daily. 90 tablet 3 ALLERGIES Allergies Allergen Reactions ??? Sulfa (Sulfonamide Antibiotics) Swelling and Rash throat closes up, rash, and red everywhere PHYSICAL EXAM VITAL SIGNS: BP 104/56 Pulse 100 Temp(Src) 97.8 ??F (36.6 ??C) (Oral) Resp 20 SpO2 100% LMP 11/29/2013 Constitutional: Well developed, Well nourished, No acute [...] distress, No wheezing, No chest tenderness. Abdomen: Soft, bowel sounds present x4, Diffuse lower abdominal tenderness noted to palpation without guarding or masses : External genitalia normal in appearance, small amount of dark red blood noted in the vaginal vault, cervical os is closed, no active bleeding noted, Bilateral adnexa nontender and without fullness or masses, no cervical lesions noted, no cervical motion tenderness, uterus slightly enlarged Skin: Warm, Dry, No erythema, No rash. Back: No tenderness, No CVA tenderness. Extremities: Intact distal pulses, No edema, No tenderness, No cyanosis, No clubbing. Neurologic: Alert & oriented x 3, Normal motor function, Normal sensory function, No focal deficits noted. RADIOLOGY/PROCEDURES Results for orders placed during the hospital encounter of 02/21/14 CBC WITH AUTO DIFF Result Value Range WBC 5.9 4.0 - 11.0 x10(3)/mcL RBC 3.15 (*) 3.80 - 5.10 x10(6)/mcL Hgb 10.1 (*) 12.0 - 15.6 gm/dL Hct 29.4 (*) 35.7 - 45.9 % MCV 93.4 82.5 - 99.8 fL MCH 32.2 27.0 - 34.3 pg MCHC 34.5 32.1 - 35.3 gm/dL RDW 12.0 11.5 - 15.0 % Platelet 159 144 - 423 x10(3)/mcL MPV 8.7 6.8 - 10.8 fL DIFFERENTIAL Result Value Range Neut Percent 55.2 Lymph Percent 33.5 [place] Percent 5.8 Eos Percent 4.6 Baso Percent 0.9 Neut# 3.3 1.8 - 7.7 x10(3)/mcL Lymph# 2.0 0.6 - 4.8 x10(3)/mcL [place]# 0.3 0.0 - 1.3 x10(3)/mcL Eos# 0.3 0.0 - 0.5 x10(3)/mcL Baso# 0.1 0.0 - 0.2 x10(3)/mcL COURSE & MEDICAL DECISION MAKING Pertinent Labs & Imaging studies reviewed. (See chart for details) I treated this patient independently. 1845 Patient resting comfortably on bed, states pain has improved after Percocet and Zofran given in the department. Patient denies any nausea at this time. Patient has had no further bleeding since arrival here noted on her current pad. Patient remains afebrile. [address] Soler, [employer], agrees with plan to discharge patient home if her sugars and for Zofran and to continue pain medications as directed. Patient instructed to rest, practice pelvic rest, drink plan fluids, patient instructed to continue the oxycodone which she has at home as directed for pain, and she is instructed to take this medication with food and I did write her for Ge if she continues to have nausea/vomiting after taking oxycodone. She was instructed to return for increased bleeding, increased pain, fever or new or worsening concerns. FINAL IMPRESSION 1. Vaginal bleeding 2. S/P D&C (status post dilation and curettage) Patient discharged home in stable condition, improved This chart was completed using voice recognition technology and may contain unintended errors Zara Aviles, LEV 02/21/141900 Zara Aviles APRN 02/21/[id number] Cosigned by Raquel Covarrubias MD at 02/21/2014 7:17 PM EST documented in this encounter Plan of Treatment Not on file documented as of this encounter Procedures Procedure Name Priority Date/Time Associated Diagnosis Comments DIFFERENTIAL STAT 02/21/2014 6:07 PM EST CBC WITH DIFF STAT 02/21/2014 6:07 PM EST documented in this encounter Results * DIFFERENTIAL (02/21/2014 6:07 PM EST) Neut Percent 55.2 % [facility] Lymph Percent 33.5 % [facility] [place] Percent 5.8 % [facility] Eos Percent 4.6 % [facility] Baso Percent 0.9 % [facility] Neut# 3.3 1.8 - 7.7 x10(3)/mcL [facility] Lymph# 2.0 0.6 - 4.8 x10(3)/mcL [facility] [place]# 0.3 0.0 - 1.3 x10(3)/mcL [facility] Eos# 0.3 0.0 - 0.5 x10(3)/mcL [facility] Baso# 0.1 0.0 - 0.2 x10(3)/mcL [facility] Blood specimen (specimen) 02/21/2014 6:07 PM EST 02/21/2014 6:07 PM EST Raquel Covarrubias MD HEMATOLOGY ORDERABLES Final Result Performing Organization Address [facility]/ZIP Co de Phone Number [facility] [address] [place] [address] * (ABNORMAL) CBC WITH AUTO DIFF (02/21/2014 6:07 PM EST) [facility] WBC 5.9 4.0 - 11.0 x10(3)/mcL [facility] RBC 3.15(L) 3.80 - 5.10 x10(6)/mcL [facility] Hgb 10.1(L) 12.0 - 15.6 gm/dL [facility] Hct 29.4(L) 35.7 - 45.9 % [facility] MCV 93.4 82.5 - 99.8 fL [facility] MCH 32.2 27.0 - 34.3 pg [facility] MCHC 34.5 32.1 - 35.3 gm/dL [facility] RDW 12.0 11.5 - 15.0 % [facility] Platelet 159 144 - 423 x10(3)/mcL [facility] MPV 8.7 6.8 - 10.8 fL [facility] Blood specimen (specimen) UPPER LIMB STRUCTURE / Unknown 02/21/2014 6:07 PM EST 02/21/2014 6:07 PM EST Raquel Covarrubias MD HEMATOLOGY ORDERABLES Final Result Performing Organization Address City/[facility]/ZIP Co de Phone Number [facility] [address] [place] [address] documented in this encounter Visit Diagnoses Diagnosis Vaginal bleeding- Primary Other specified noninflammatory disorder of vagina S/P D&C (status post dilation and curettage) Other postprocedural status Hemorrhage complicating a procedure documented in this encounter Administered Medications Inactive Administered Medications - up to 1 most recent administrations Medication Order MAR Action Action Date Dose Rate Site ondansetron (ZOFRAN-ODT) disintegrating tablet 4 mg 4 mg, Oral, ONCE, 1 dose, On Patti 02/21/14 at 1800, Dissolve in mouth Given 02/21/2014 6:03 PM EST 4 mg oxyCODONE-acetaminophen (PERCOCET) 5-325 mg per tablet 1 tablet 1 Tablet, Oral, ONCE, 1 dose, On Patti 02/21/14 at 1800, Maximum adult dose of acetaminophen is 4000 mg from all sources in 24 hours. Given 02/21/2014 6:26 PM EST 1 Tablet documented in this encounter Active and Recently Administered Medications Times are shown in EST. Scheduled Medication Order 02/19/2014 02/20/2014 02/21/2014 ondansetron (ZOFRAN-ODT) disintegrating tablet 4 mg (COMPLETED) 4 mg, Oral, ONCE, 1 dose, On Patti 02/21/14 at 1800, Dissolve in mouth 1803 (Given - Provid er: Pau Carranza RN) oxyCODONE-acetaminophen (PERCOCET) 5-325 mg per tablet 1 tablet (COMPLETED) 1 Tablet, Oral, ONCE, 1 dose, On Patti 02/21/14 at 1800, Maximum adult dose of acetaminophen is 4000 mg from all sources in 24 hours. 1826 (Given - Provid er: Pau Carranza RN) documented in this encounter Care Teams Screening Representative Relationship Specialty Start Date End Date Nehemias Barron MD [address] [place] [address] PCP - General 12/01/10 Easton Thompson MD [address] [place] [address] [address] [place] [address] Physician Obstetrics & Gynecology 01/29/14 documented as of this encounter
--- OUTSIDE RECORDS SUMMARY | 2024-03-07 05:09 | XMS_ITS | Encounter Summary ---
Author Organization [place] [address] Care Team Providers Care Clinical Rn Manager Name Role Phone Nehemias Barron MD Primary Care Provider [phone] Easton Thompson MD Unavailable [phone] Reason for Visit * Auth/Cert/Inpt Specialty Diagnoses / Procedures Referred By Contac t Referred To Contact Diagnoses Missed Missed Procedures DILATION & CURETTAGE SUCTION EVACUATION FO [[id number]] Referral ID Status Reason Start Date Expiration Date Visits Re quested Visits Authorized [id number] 1 1 Encounter Details Date Type Department Care Team (Latest Contact Info) Description 02/20/2014 11:44 AM [facility] - 02/20/2014 6:06 PM [facility] Hospital Encounter [facility] [place] [address] Kash Tabares MD [address] [facility] [address] [place] [address] Missed (Primary Dx) Discharge Disposition: Home or Self Care Social History Tobacco Use Types Packs/Day Years Used Date Smoking Tobacco: Every Day Cigarettes 0.5 8 Smokeless Tobacco: Never Tobacco Cessation:Counseling Given: Yes Comments:info refused Alcohol Use Standard Drinks/Week Comments [...] Sign Reading Time Taken Comments Blood Pressure 90/78 02/20/2014 5:30 PM EST Pulse 78 02/20/2014 5:30 PM EST Temperature 37.1 ??C (98.7 ??F) 02/20/2014 5:30 PM ES T Respiratory Rate 16 02/20/2014 5:30 PM EST Oxygen Saturation 100% 02/20/2014 5:30 PM EST Inhaled Oxygen Concentration - - Weight 59 kg (130 lb) 02/19/2014 2:02 PM EST Height 165.1 cm (5' 5 ) 02/19/2014 2:02 PM EST Body Mass Index 21.63 02/19/2014 2:02 PM EST documented in this encounter Discharge Instructions * Discharge Instructions* Kash Tabares MD - 02/20/2014 3:10 PM EST Post procedure instructions (D&C) 1. Follow-up with Dr. Tabares in office ~2 weeks 2. Nothing in vagina x 3 weeks 3. No driving while on pain meds 4. Call office anytime if any concerns, especially fever, severe abdominal or pelvic pain, heavy vaginal bleeding, or foul smelling vaginal discharge documented in this encounter Ordered Prescriptions Prescription Sig Dispense Quantity Refills Last Filled Start Date End Date oxyCODONE-acetamin ophen (PERCOCET) 5-325 mg Oral Tablet Take 1 tablet by mouth every 4 hours as needed for Pain. 15 tablet 0 02/20/2014 04/29/2014 documented in this encounter Discharge Disposition Disposition Code Departure Means Destination Home or Self Care Car Home documented in this encounter H&P Notes * Kash Tabares MD - 02/20/2014 8:18 AM EST HPI: 23 yo dx'd with MAB measuring 7-8 wks per [facility] sono 02/18, pt electing for D&C for treatment. LMP: Patient's last menstrual period was 11/29/2013. PMH/PSH: Past Medical History Diagnosis Date ??? [...] ??? Motion sickness ??? Cancer melanoma back Past Surgical History Procedure Laterality Date ??? Appendectomy age 7 ??? Cervix biopsy 2010, 05/29/2013 ??? Skin cancer excision 06/2012 melanoma back ??? Leep N/A 06/27/2013 LOOP EXCISION PROCEDURE (LEEP); Surgeon: Sachin Castellanos MD; Location: [facility] OR; Service: Gynecology OB History Para Term AB SAB TAB Ectopic Multiple Living 2 1 1 # Outcome Date GA Lbr Michele/2nd Weight Sex Delivery Anes PTL Lv 2 CUR 1 PAR 07/02/11 37w0d 2807 g (6 lb 3 oz) F EPI Y Comments: System Generated. Please review and update details. Recent Results (from the past 6048 hour(s)) POCT URINALYSIS DIPSTICK Collection Time 02/18/14 2:29 PM Result Value Range Protein, UA Trace RUBELLA ANTIBODY IGG Collection Time 01/29/14 3:44 PM Result Value Range Rubella IgG 6.960 HIV AG/AB Collection Time 01/29/14 3:44 PM Result Value Range HIV Ag/AB Non-Reactive HEPATITIS B SURFACE ANTIGEN Collection Time 01/29/14 3:44 PM Result Value Range Hep Bs Ag Negative Negative ANTIBODY SCREEN IGG Collection Time 01/29/14 3:44 PM Result Value Range ABSC IgG Int Negative ABORH Collection Time 01/29/14 3:44 PM Result Value Range ABORh Int AB POS URINALYSIS Collection Time 01/25/14 5:06 AM Result Value Range UA Protein Negative Negative Family Hx: Family History Problem Relation Age of Onset ??? Cancer Maternal Grandmother melanoma ??? Anesth Problems Neg Hx Social Hx: History Social History ??? Marital Status: Spouse [...] ??? None Social History Narrative ??? None Allergies: Allergies Allergen Reactions ??? Sulfa (Sulfonamide Antibiotics) Swelling and Rash throat closes up, rash, and red everywhere Meds: Current Facility-Administered Medications Medication Dose Route Frequency Provider Last Rate Last Dose ??? lactated ringers infusion Intravenous Preprocedure Continuous Ginger Arzate APRN Current Outpatient Prescriptions Medication Sig Dispense Refill ??? ondansetron (ZOFRAN-ODT) 4 mg Oral Tablet, Rapid Dissolve Take 1 tablet by mouth every 4 hours as needed for Nausea. 20 tablet 1 ??? PNV Comb.Du86-Ioue,Carbonyl-FA (PRENATABS RX) 29 mg iron- 1 mg Oral Tablet Take 1 tablet by mouth daily. 90 tablet 3 ROS:negative 02/18 in office Physical Exam: (02/18) Vitals: tbd on admit HEENT:op clear Neck:supple Lungs: unlabored breathing, CTAB Abd:soft / nt / gravid Fundal height: ~ 9wks on exam Presentation: n/a Extremities:no c/c/e Neuro:grossly intact VE:closed / thick Labs: Lab Results Component Value Date WBC 3.8* 01/29/2014 HGB 12.2 01/29/2014 HCT 36.0 01/29/2014 MCV 93.2 01/29/2014 PLT 168 01/29/2014 A/P: 23 yo with MAB, electing for D&C - risks of procedure discussed including not limited to infection, excess bleeding requiring transfusion, bowel or bladder injury, blood clots, failure to meet treatment goals, intrauterine scarring formation -- pt understands consent to proceed documented in this encounter Procedure Notes * Unknown, Unknown - 02/23/2014 10:23 PM ESTAssociated Order(s): SCANNED PRE/POST PROCEDURES * Unknown, Unknown - 02/23/2014 10:23 PM ESTAssociated Order(s): SCANNED ANESTHESIA FORMS * Kash Tabares MD - 02/20/2014 3:13 PM EST NAME: Naeem A Lotus DICTATOR: Kash Tabares MD OPERATIVE REPORT DATE OF OPERATION: 02/20/14 PREOPERATIVE DIAGNOSIS: MAB POSTOPERATIVE DIAGNOSIS: same PROCEDURE: Suction dilation and curettage. SURGEON: Kash Tabares MD ANESTHESIA: general ESTIMATED BLOOD LOSS: 350 DRAINS: None. COMPLICATIONS: none. CONDITION: The patient extubated and transported to postop recovery room in stable condition. DETAILS OF PROCEDURE: The patient is a very pleasant 23-year-old, 2, para 1 female patient, with a history of missed diagnosed 02/18. It had been elected to proceed with the above mentioned procedure for complete treatment purposes. Indications, risks, benefits were explained. Consent was obtained preoperatively. Please refer to previous history and physical for further details. The patient was, therefore, transported to the operating room, where she was placed on the operative table in dorsal supine position, after which time general anesthesia was induced. The patient was then placed into low lithotomy positioning. Examination under anesthesia revealed the cervix to closed. The uterus was retrovertedapproximately 8 weeks size. The patient was then prepped and draped for the procedure and the bladder was drained with straight Red Rubber Tipped Catheter under sterile technique. A weighted speculum was placed in the posterior vaginal area and the anterior cervical lip was grasped with a sharp tooth tenaculum. The cervix was then sequentially dilated up to #20 Rob dilator. The uterus sounded to 9 cm. The #8 suction curette was placed through the cervix and gently advanced to the uterine fundus. The suction device, which had been tested and functioning adequately, was then activated and rotated to remove the products of conception. The suction catheter was removed and sharp curetting then performed on all surfaces and a satisfactory uterine cry was appreciated. An additional pass was performed with the suction catheter and no residual tissue was removed. Moderate bleeding from the uterus was observed and improved with IV Pitocin and uterine massage. Good hemostasis was then observed. Tenaculum sites were hemostatic also. The weighted speculum was then removed from the posterior vaginal area. The patient was then taken out of dorsal lithotomy position, returned to dorsal supine position, after which point the patient was extubated and transported to postop recovery room in stable condition. Sponge, needle and instrument counts were correct at the end of the procedure. Kash Tabares MD documented in this encounter Nursing Notes * Sabine Pina RN - 02/20/2014 5:[address] Brown about BP 86/61. He stated that she was OK to go home since this was similar to her pre-op pressure and she was asymptomatic. No heavy bleeding. Transferred pt. To [facility]. Report to OSCAR Benitez. * Rosalina Bridges RN - 02/19/2014 2:09 PM EST Pre-Op Instructions Date of Surgery 02/20/14 1. Do not eat any food or drink anything after midnight. This includes chewing gum, mints, candy, chewing tobacco and dip. Water only 4 hrs prior to surgery start time. 2. You may brush your teeth and gargle the morning of surgery. Do not swallow water. 3. Take the following pills with a small sip of water on the morning of surgery: none 4. Aspirin, Coumadin, Ibuprofen, Plavix, Fish Oil, Vitamin E, any Supplements and Anti-Inflammatoryproducts may be stopped as directed by your physician. 5. Stop or reduce smoking for 24 hours prior to surgery. No beer, wine or alcohol 24 hours prior tosurgery. 6. You MUST make arrangements for a responsible adult (18 years or older) to take home after your surgery. You will not be allowed to leave alone or drive yourself home. It is required that someone stay with you the first 24 hours after your procedure. 7. A parent must accompany a child scheduled for surgery and plan to stay at the hospital until thechild is discharged. If your takes a special type of nipple or baby bottle, please bring that with you. If your child has a favorite security item such as a blanket or a special toy, please feel free to bring that with you. 8. Please do not bring children with you to the hospital. 9. Please wear simple, loose fitting clothing to the hospital. Do not bring valuables (money, credit cards, check books, etc.) or wear any jewelry on day of surgery. Remove all body piercings prior to arrival. All jewelry must be removed to avoid injury. We will not tape wedding rings/bands. 10. If you have dentures, they may be removed before going to the OR, we will provide a container for them. If you wear contact lenses or glasses, they will be removed; please bring a case for them. 11. Do not remove hearing aids, you will wear them to surgery. 12. Please shower morning of surgery or night before. Do not wear any makeup (including no eye makeup) lotion, powder, or deodorant. Nail andorran must be removed if andorran is on operative extremity. Please do not shave operative extremity or near the operative extremity. 13. If you have a Living Will and Durable Power of Customer Marketing Assistant for Healthcare, please bring a copy. 14. Notify your Surgeon if you develop any illness between now and surgery time, cough, cold, fever, sore throat, nausea, vomiting, etc. 15. If you receive a blood bracelet remember to bring it with you on the day of surgery. 16. If your insurance coverage requires a co-payment or deductible, please bring the payment with you. We accept Visa, MasterCard, [employer] and [employer] credit cards. Our Customer Service Representatives will be available by telephone for any questions regarding financial issues at [phone]. 17. Other 18. If you wear C-pap, Bi-pap, or continuous oxygen please bring with you to the hospital. I acknowledge receipt of the instructions indicated above. If you have any questions please call the: [facility] [place] at [phone] documented in this encounter Miscellaneous Notes * Miscellaneous - Unknown, Unknown - 02/28/2014 2:56 PM EST * H&P Update - Kash Tabares MD - 02/20/2014 3:06 PM EST Late entry from pre-op encounter Pt seen in pre-op area H&P reviewed no changes - risks of procedure discussed including not limited to infection, excess bleeding requiring transfusion, bowel or bladder injury, blood clots, failure to meet treatment goals, uterine scarring -- ptunderstands consent to proceed documented in this encounter Plan of Treatment Not on file documented as of this encounter Procedures Procedure Name Priority Date/Time Associated Diagnosis Comments SCANNED PRE/POST PROCEDURES 02/23/2014 10:23 PM EST SCANNED ANESTHESIA FORMS 02/23/2014 10:23 PM EST SCANNED RHYTHM STRIPS 02/23/2014 10:23 PM EST PATHOLOGY TISSUE REPORT Routine 02/20/2014 1:55 PM EST DILATION AND CURETTAGE SUCTION EVACUATION 02/20/2014 1:24 PM EST Missed Special Needs 89247 ABEL DATABASE/ADDON DIFFERENTIAL STAT 02/20/2014 1:00 PM EST ABORH STAT 02/20/2014 1:00 PM EST CBC WITH DIFF STAT 02/20/2014 1:00 PM EST ANTIBODY SCREEN IGG STAT 02/20/2014 1 :00 PM EST documented in this encounter Results * SCANNED PRE/POST PROCEDURES (02/23/2014 10:23 PM EST) Narrative Procedure Note Unknown, Unknown - 02/23/2014 10:23 PM EST us Unknown Unknown PROCEDURE/MINOR SURGICAL ORDERAB LES Final Result * SCANNED ANESTHESIA FORMS (02/23/2014 10:23 PM EST) Narrative Procedure Note Unknown, Unknown - 02/23/2014 10:23 PM EST us Unknown Unknown PROCEDURE/MINOR SURGICAL ORDERAB LES Final Result * SCANNED RHYTHM STRIPS (02/23/2014 10:23 PM EST) Anatomical Region Laterality Modality Other us Unknown Unknown IMG ECG ORDERABLES Final Result * PATHOLOGY TISSUE REPORT (02/20/2014 1:55 PM EST) Surgical Pathology Report ? PATIENT NAME:NAEEM MCCOY ?Surgical Pathology Report ? Accession Number ?Collected Date/Time ? Received Date/Time ? [id number] ? 02/20/14 13:55 EST ?02/20/14 14:42 EST ? Diagnosis ? Uterine contents: ? - Immature chorionic villi consistent with products of conception. ? Roxana Ayala ? (Electronically signed by) ? Verified: 02/21/2014 ? [facility] ? Clinical Information ? Spontaneous . ? Gross Description ? Received fresh in a suction device labeled with the patient's name and ? products of conception is a 7.5 x 6.5 x 2.5 cm aggregate of bloodstained ? soft tissue fragments and clotted blood. Possible villous tissue is ? identified. parts are not identified. ? Sales Project Administrator tissue is submitted in two cassettes. /BC ? DRB/BR ? Microscopic Description ? Microscopic examination is performed and the findings corroborate the ? diagnosis. [facility] 02/20/2014 1:55 PM EST Kash Tabares MD PATHOLOGY ORDERABLES Final Resu lt Performing Organization Address [facility] Co de Phone Number [facility] [address] [place] [address] * DIFFERENTIAL (02/20/2014 1:00 PM EST) Neut Percent 57.3 % [facility] Lymph Percent 27.0 % [facility] [place] Percent 8.9 % [facility] Eos Percent 6.1 % [facility] Baso Percent 0.7 % [facility] Neut# 2.3 1.8 - 7.7 x10(3)/mcL [facility] LAB Lymph# 1.1 0.6 - 4.8 x10(3)/mcL [facility] Highlands# 0.4 0.0 - 1.3 x10(3)/mcL [facility] Eos# 0.2 0.0 - 0.5 x10(3)/[facility] Baso# 0.0 0.0 - 0.2 x10(3)/[facility] Blood specimen (specimen) 02/20/2014 1:00 PM EST 02/20/2014 1:10 PM EST Kash Tabares MD HEMATOLOGY ORDERABLES Final Res ult Performing Organization Address [facility]/ZIP Co de Phone Number [facility] [address] [place] [address] * ANTIBODY SCREEN IGG (02/20/2014 1:00 PM EST) ABSC IgG Int Negative [facility] Blood specimen (specimen) 02/20/2014 1:00 PM EST 02/20/2014 1:10 PM EST Kash Tabares MD BLOOD BANK ORDERABLES Final Res ult Performing Organization Address City/[facility]/ZIP Co de Phone Number [facility] [address] [place] [address] * ABORH (02/20/2014 1:00 PM EST) ABOR Int AB POS [facility] Blood specimen (specimen) 02/20/2014 1:00 PM EST 02/20/2014 1:10 PM EST Kash Tabares MD BLOOD BANK ORDERABLES Final Res ult Performing Organization Address [facility] Co de Phone Number [facility] [address] [place] [address] * (ABNORMAL) CBC WITH AUTO DIFF (02/20/2014 1:00 PM EST) WBC 4.0 4.0 - 11.0 x10(3)/mcL [facility] RBC 3.54(L) 3.80 - 5.10 x10(6)/mcL [facility] Hgb 11.5(L) 12.0 - 15.6 gm/dL [facility] Hct 32.8(L) 35.7 - 45.9 % [facility] MCV 92.7 82.5 - 99.8 fL [facility] MCH 32.5 27.0 - 34.3 pg [facility] MCHC 35.1 32.1 - 35.3 gm/dL [facility] RDW 11.8 11.5 - 15.0 % [facility] Platelet 168 144 - 423 x10(3)/mcL [facility] MPV 9.2 6.8 - 10.8 fL [facility] Blood specimen (specimen) UPPER LIMB STRUCTURE / Unknown 02/20/2014 1:00 PM EST 02/20/2014 1:10 PM EST Kash Tabares MD HEMATOLOGY ORDERABLES Final Res ult Performing Organization Address City/[facility]/ZIP Co de Phone Number [facility] [address] [place] [address] documented in this encounter Visit Diagnoses Diagnosis Missed - Primary Missed documented in this encounter Admitting Diagnoses Diagnosis Missed documented in this encounter Administered Medications Inactive Administered Medications - up to 1 most recent administrations Medication Order MAR Action Action Date Dose Rate Site doxycycline (VIBRA-TABS) tablet 100 mg 100 mg, Oral, ONCE, 1 dose, On Tue02/20/14 at 1300, One tab pre-op with sip of water Given 02/20/2014 1:17 PM EST 100 mg doxycycline (VIBRA-TABS) tablet 200 mg 200 mg, Oral, ONCE, 1 dose, On Tue02/20/14 at 1515, In recovery before dc Given 02/20/2014 5:12 PM EST 200 mg lactated ringers infusion Intravenous, at 100 mL/hr, PREPROCEDURE CONTINUOUS, Starting on Tue02/19/14 at 1435, Until Tue02/20/14 at 2207, To be given in SDS/Pre-op Holding Area, Pre-op (Holding/SDS Meds) New Bag 02/20/2014 4:29 PM EST 100 m L/hr meperidine (DEMEROL) 25 mg/mL injection (PF) 12.5 mg 12.5 mg, Intravenous, ONCE PRN, 1 dose, Starting on Tue02/20/14 at 1409, Until Tue02/20/14 at 1438, Shivering, unless otherwise ordered by Anesthesia Coordinator, Shivering, unless otherwise ordered by Anesthesia Coordinator, PACU Given 02/20/2014 2:38 PM EST 12.5 mg documented in this encounter Discontinued Medications Medication Sig Discontinue Reason Start Date End Da te amoxicillin-clavulanate (AUGMENTIN) 875-125 mg Oral Tablet Take 875 mg by mouth 2 times daily. DELETE-Therapy completed 02/19/2014 documented as of this encounter Active and Recently Administered Medications Times are shown in EST. Scheduled Medication Order 02/18/2014 02/19/2014 02/20/2014 doxycycline (VIBRA-TABS) tablet 100 mg (COMPLETED) 100 mg, Oral, ONCE, 1 dose, On Tue02/20/14 at 1300, One tab pre-op with sip of water 1317 (Given - Provid er: Mariana Turcios RN) doxycycline (VIBRA-TABS) tablet 200 mg (COMPLETED) 200 mg, Oral, ONCE, 1 dose, On Tue02/20/14 at 1515, In recovery before dc 1712 (Given - Provid er: Mallorie Parra, OSCAR) PRN Medication Order 02/18/2014 02/19/2014 02/20/2014 lactated ringers infusion (CANCELED) Intravenous, at 100 mL/hr, PREPROCEDURE CONTINUOUS, Starting on Tue02/19/14 at 1435, Until Tue02/20/14 at 2207, To be given in SDS/Pre-op Holding Area, Pre-op (Holding/SDS Meds) 1303 (New Bag - Prov ider: Kim Youssfe, OSCAR)1629 (New Bag - Provider: Mallorie Parra, OSCAR)1800 (Stopped - Provider: Eli Beltran, OSCAR) meperidine (DEMEROL) 25 mg/mL injection (PF) 12.5 mg (COMPLETED) 12.5 mg, Intravenous, ONCE PRN, 1 dose, Starting on Tue02/20/14 at 1409, Until Tue02/20/14 at 1438, Shivering, unless otherwise ordered by Anesthesia Coordinator, Shivering, unless otherwise ordered by Anesthesia Coordinator, PACU 1438 (Given - Provid er: Sabine Pina RN) oxytocin (pitOCIN) injection (CANCELED) ONCE PRN, 1 dose, Starting on Tue02/20/14 at 1407, Until Tue02/20/14 at 1407, Intra-op 1407 (Given - Provid er: JAI Elias Student - Comment: intravenous) documented in this encounter Orders Medications Ordered That Horace ht Not Have Been Administered Count Last Ordered Date First Ordered Date acetaminophen (OFIRMEV) infusion 1,000 mg 1 02/20/2014 fentaNYL (SUBLIMAZE) 50 mcg/ mL injection 25 mcg 1 02/20/2014 Hydromorphone (DILAUDID) injection 0.25 mg 1 02/20/2014 ondansetron (ZOFRAN) 4 mg/2 mL injection 4 mg 1 02/20/2014 ondansetron (ZOFRAN-ODT) dis integrating tablet 8 mg 1 02/20/2014 oxytocin (pitOCIN) injection 1 02/20/2014 Lab Orders Without Results Count Last Ordered D ate First Ordered Date TYPE AND SCREEN 1 02/20/2014 Nursing Count Last Ordered Date First Orde red Date NURSING COMMUNICATION 3 02/20/2014 RELEASE FROM ANESTHESIA CARE 1 02/20/2014 VERIFY INFORMED CONSENT 2 02/20/2014 Discharge Count Last Ordered Date First Orde red Date DISCHARGE PATIENT 1 02/20/2014 documented in this encounter Care Teams Clinical Rn Manager Relationship Specialty Start Date End Date Nehemias Barron MD [address] [place] [id number] PCP - General 12/01/10 Easton Thompson MD [address] [place] [address] [address] [place] [address] Physician Obstetrics & Gynecology 01/29/14 documented as of this encounter
--- OUTSIDE RECORDS SUMMARY | 2024-03-07 05:09 | XMS_ITS | Encounter Summary ---
Author Organization [place] [address] Care Team Providers Care Vice President Of Instruction Name Role Phone Nehemias Barron MD Primary Care Provider Reason for Referral * Consultation (Routine) - Closed Specialty Diagnoses / Procedures Referred By Contac t Referred To Contact Internal Medicine-Hematology and Oncology / Oncology Diagnoses Prolonged pt (prothrombin time) Nehemias Barron MD [address] [place] [address] Phone: tel: fax: Jude Choi MD Referral ID Status Reason Start Date Expiration Date Visits Re quested Visits Authorized [id number] Closed 01/23/2014 01/23/2015 1 1 Encounter Details Date Type Department Care Team (Late st Contact Info) Description 01/23/2014 Orders Only [facility] [address] [facility] [place] [address] Bonny Santizo, CARGO MATE [address] [place] [address] Prolonged pt (prothrombin time) (Primary Dx) Social History Tobacco Use Types [...] on file documented as of this encounter Plan of Treatment Scheduled Referrals Name Type Priority Associated Diagnoses Order Schedule AMB REFERRAL TO HEMATOLOGY ONCOLOGY Outpatient Referral Routine Prolonged pt (prothrombin time) Ordered: 01/23/2014 documented as of this encounter Visit Diagnoses Diagnosis Prolonged pt (prothrombin time)- Primary Abnormal coagulation profile documented in this encounter Care Teams Vice President Of Instruction Relationship Specialty Start Date End Date Nehemias Barron MD [address] [place] [id number] PCP - General 12/01/10 documented as of this encounter
--- OUTSIDE RECORDS SUMMARY | 2024-03-07 05:09 | XMS_ITS | Encounter Summary ---
Author Organization [place] [address] Care Team Providers Care Maturity Checker Name Role Phone Nehemias Barron MD Primary Care Provider Easton Thompson MD Unavailable [phone] Encounter Details Date Type Department Care Team (Latest Contact Info) Description 12/30/2014 9:50 AM EDT - 12/30/2014 8:12 PM EDT Hospital Encounter [facility] [address] [place] [address] Threatened ; Missed ; Lymphadenopathy, posterior cervical; Ecchymosis; Syncope, vasovagal Discharge [...] r Schedule OP VENIPUNCTURE CHARGE Lab Timed Threatened Missed Lymphadenopathy, posterior cervical Ecchymosis Syncope, vasovagal One Time for 1 Occurrences starting 12/30/2014 until 12/30/2014 documented as of this encounter Procedures Procedure Name Priority Date/Time Associated Diagnosis Comments HUMAN CHORIONIC GONADOTROPIN QUANTITATIVE Routine 12/30/2014 9:50 AM EDT Threatened documented in this encounter Results * HUMAN CHORIONIC GONADOTROPIN QUANTITATIVE (12/30/2014 9:50 AM EDT) hCG Quant 113,696 mIU/mL [facility] Blood specimen (specimen) UPPER LIMB STRUCTURE / Unknown 12/30/2014 9:50 AM EDT 12/30/2014 9:52 AM EDT Narrative [facility] - 12/30/2014 11:09 AM EDT Obtain on 12/31 us Luc Ivory MD CHEMISTRY ORDERABLES Final Resul t [facility] [address] [place] [address] documented in this encounter Visit Diagnoses Diagnosis Threatened Threatened , unspecified as to episode of care Missed Lymphadenopathy, posterior cervical Ecchymosis Other specified circulatory system disorders Syncope, vasovagal Syncope and collapse documented in this encounter Care Teams Maturity Checker Relationship Specialty Start Date End Date Nehemias Barron MD [address] [place] [address] PCP - General 12/01/10 Easton Thompson MD [address] [place] [address] [address] [place] [address] Physician Obstetrics & Gynecology 01/29/14 documented as of this encounter
--- OUTSIDE RECORDS SUMMARY | 2024-03-07 05:09 | XMS_ITS | Encounter Summary ---
Author Organization [place] [address] Care Team Providers Care Gizzard Skin Remover Name Role Phone Nehemias Barron MD Primary Care Provider [phone] Easton Thompson MD Unavailable [phone] Reason for Visit * Reason Onset Date Comments ED Follow-Up Call 12/09/2014 ED Follow Up-A bdominal Pain Encounter Details Date Type Department Care Team (Latest Contact Info) Description 12/09/2014 Patient Outreach [facility] [address] [place] [address] Kristi Ewing RN ED Follow-Up Call (ED Follow Up-Abdominal Pain) Social History Tobacco Use Types Packs/Day Years [...] Telephone Encounter - Kristi Ewing RN - 12/09/2014 11:07 AM EDT Pt was seen in ED 12/07 for abdominal pain. Unable to make contact with pt at this time. Left message with contact information on pt voicemail. Letter sent. documented in this encounter Plan of Treatment Not on file documented as of this encounter Visit Diagnoses Not on filedocumented in this encounter Care Teams Gizzard Skin Remover Relationship Specialty Start Date End Date Nehemias Barron MD [address] [place] [address] PCP - General 12/01/10 Easton Thompson MD [address] [place] [address] [address] [place] [address] Physician Obstetrics & Gynecology 01/29/14 documented as of this encounter
--- OUTSIDE RECORDS SUMMARY | 2024-03-07 05:09 | XMS_ITS | Encounter Summary ---
Author Organization [place] [address] Care Team Providers Care Application Analyst Name Role Phone Nehemias Barron MD Primary Care Provider [phone] Easton Thompson MD Unavailable Reason for Visit * Auth/Cert/Inpt Specialty Diagnoses / Procedures Referred By Eusebia t Referred To Contact Diagnoses Missed Missed Procedures DILATION & CURETTAGE SUCTION EVACUATION FO [[id number]] Referral ID Status Reason Start Date Expiration Date Visits Re quested Visits Authorized [id number] 1 1 Encounter Details Date Type Department Care Team (Late st Contact Info) Description 02/20/2014 1:30 PM EST - 02/20/2014 2:15 PM EST [facility] [place] [place] [id number] Kash Tabares MD [address] [facility] [address] [place] [address] DILATION AND CURETTAGE SUCTION EVACUATION Surgery Details Date/Time Status Location OR Service Patient Class Case Class Case Type Trauma Case? 02/20/2014 1:30 PM Posted EDG MAIN OR EDG Room 06 Gynecology Same Day Surgery N/A Panel 1 Procedure LRB Anes Op Region Wound Class Comments DILATION AND CURETTAGE SUCTION EVACUATION N/A General Cervix Clean Contaminated DILATION & CURETTAGE SUCTION EVACUATION FOR MISSCARRIAGE Surgeon Surgeon Role Service Panel Kash Tabares MD Primary Gynecology 1 Special Needs [address] ABEL DATABASE/ADDON documented in this encounter Social History Tobacco [...] dx'd with MAB measuring 7-8 wks per [facility] sono 02/18, pt electing for D&C for [...] PROCEDURE (LEEP); Surgeon: Sachin Castellanos MD; Location: [facility] MAIN OR; Service: Gynecology OB History [...] for Nausea. 20 tablet 1 ??? PNV Comb.[id number],Carbonyl-FA (PRENATABS RX) 29 mg iron- 1 mg [...] 02/20/2014 3:13 PM EST NAME: Naeem A Nancyalma DICTATOR: Kash Tabares MD OPERATIVE REPORT DATE [...] asymptomatic. No heavy bleeding. Transferred pt. To [facility]. Report to OSCAR Benitez. * Rosalina [...] hospital until thechild is discharged. If your infant takes a special type of nipple or [...] eye makeup) lotion, powder, or deodorant. Nail greenlandic must be removed if greenlandic is on operative extremity. Please do not shave operative extremity or near the operative extremity. 13. If you have a Living Will and Durable Power of Business Services Analyst for Healthcare, please bring a copy. 14. [...] payment with you. We accept Visa, MasterCard, Discover and [place] [employer] credit cards. Our Customer Service Representatives will be available by telephone for any questions regarding financial issues at [phone]. 17. Other 18. If you wear C-pap, Bi-pap, or continuous oxygen please bring with you to the hospital. I acknowledge receipt of the instructions indicated above. If you have any questions please call the: [facility] [place] at [phone] documented in this encounter Miscellaneous Notes * [...] 02/20/2014 1:24 PM EST Missed Special Needs [address] ABEL DATABASE/ADDON DIFFERENTIAL STAT 02/20/2014 1:00 PM [...] Number ?Collected Date/Time ? Received Date/Time ? [id number] ? 02/20/14 13:55 EST ?02/20/14 14:42 EST ? Diagnosis ? Uterine contents: ? - Immature chorionic villi consistent with products of conception. ? Roxana Ross ? (Electronically signed by) ? Verified: 02/21/2014 [...] ? identified. parts are not identified. ? Digester tissue is submitted in two cassettes. /BC ? DRB/BR ? Microscopic Description ? Microscopic examination is performed and the findings corroborate the ? diagnosis. [facility] 02/20/2014 1:55 PM EST Kash Tabares MD PATHOLOGY ORDERABLES Final Resu lt Performing Organization Address City/State/[facility] Co de Phone Number [facility] [address] [place] [address] * DIFFERENTIAL (02/20/2014 1:00 PM EST) Neut Percent 57.3 % [facility] Lymph Percent 27.0 % [facility] [place] Percent 8.9 % [facility] Eos Percent 6.1 % [facility] Baso Percent 0.7 % [facility] Neut# 2.3 1.8 - 7.7 x10(3)/mcL [facility] Lymph# 1.1 0.6 - 4.8 x10(3)/mcL [facility] [place]# 0.4 0.0 - 1.3 x10(3)/mcL [facility] Eos# 0.2 0.0 - 0.5 x10(3)/mcL [facility] Baso# 0.0 0.0 - 0.2 x10(3)/mcL [facility] Blood specimen (specimen) 02/20/2014 1:00 PM EST 02/20/2014 1:10 PM EST Kash Tabares MD HEMATOLOGY ORDERABLES Final Res ult Performing Organization Address City/[facility]/ZIP Co de Phone Number [facility] [address] [place] [address] * ANTIBODY SCREEN IGG (02/20/2014 1:00 PM EST) Pathologist [facility] ABSC IgG Int Negative [facility] Blood specimen (specimen) 02/20/2014 1:00 PM EST 02/20/2014 1:10 PM EST Kash Tabares MD BLOOD BANK ORDERABLES Final Res ult Performing Organization Address City/[facility]/ZIP Co de Phone Number [facility] [address] [place] [address] * ABORH (02/20/2014 1:00 PM EST) Pathologist [facility] ABORh Int AB POS [facility] Blood specimen (specimen) 02/20/2014 1:00 PM EST 02/20/2014 1:10 PM EST Kash Tabares MD BLOOD BANK ORDERABLES Final Res ult Performing Organization Address City/[facility] Co de Phone Number [facility] [address] [place] [address] * (ABNORMAL) CBC WITH AUTO DIFF (02/20/2014 1:00 PM EST) Pathologist [facility] WBC 4.0 4.0 - 11.0 x10(3)/mcL [facility] RBC 3.54(L) 3.80 - 5.10 x10(6)/mcL [facility] Hgb 11.5(L) 12.0 - 15.6 gm/dL [facility] Hct 32.8(L) 35.7 - 45.9 % [facility] MCV 92.7 82.5 - 99.8 fL [facility] MCH 32.5 27.0 - 34.3 pg [facility] MCHC 35.1 32.1 - 35.3 gm/dL [facility] RDW 11.8 11.5 - 15.0 % [facility] Platelet 168 144 - 423 x10(3)/mcL [facility] MPV 9.2 6.8 - 10.8 fL [facility] Blood specimen (specimen) UPPER LIMB STRUCTURE / Unknown 02/20/2014 1:00 PM EST 02/20/2014 1:10 PM EST us Kash Tabares MD HEMATOLOGY ORDERABLES Final Res ult [facility] [address] [place] [address] documented in this encounter Visit Diagnoses Diagnosis Missed - Primary Missed Missed documented in this encounter Admitting Diagnoses [...] New Bag 02/20/2014 4:29 PM EST 100 mL/hr meperidine (DEMEROL) 25 mg/mL injection (PF) 12.5 mg 12.5 mg, Intravenous, ONCE PRN, 1 dose, Starting on Tue02/20/14 at 1409, Until Tue02/20/14 at 1438, Shivering, unless otherwise ordered by Anesthesia Coordinator, Shivering, unless otherwise ordered by Anesthesia Coordinator, PACU Given 02/20/2014 2:38 PM EST 12.5 mg oxytocin (pitOCIN) injection ONCE PRN, 1 dose, Starting on Tue02/20/14 at 1407, Until Tue02/20/14 at 1407, Intra-op Given 02/20/2014 2:07 PM EST 20 Units Other documented in this encounter Discontinued Medications Medication [...] 1303 (New Bag - Prov ider: Kim Youssef RN)1629 (New Bag - Provider: Mallorie Parra RN)1800 (Stopped - Provider: Eli Beltran RN) meperidine (DEMEROL) 25 mg/mL injection (PF) 12.5 [...] dis integrating tablet 8 mg 1 02/20/2014 Lab Orders Without Results Count Last Ordered D ate First Ordered Date TYPE AND SCREEN 1 02/20/2014 Nursing Count Last Ordered Date First Orde red Date NURSING COMMUNICATION 3 02/20/2014 RELEASE FROM ANESTHESIA CARE 1 02/20/2014 VERIFY INFORMED CONSENT 2 02/20/2014 Discharge Count Last Ordered Date First Orde red Date DISCHARGE PATIENT 1 02/20/2014 documented in this encounter Care Teams Application Analyst Relationship Specialty Start Date End Date Nehemias Barron MD [address] [place] [address] PCP - General 12/01/10 Easton Thompson MD [address] [place] [address] [address] [place] [address] Physician Obstetrics & Gynecology 01/29/14 documented as of this encounter
--- OUTSIDE RECORDS SUMMARY | 2024-03-07 05:09 | XMS_ITS | Encounter Summary ---
Author Organization [place] [address] Care Team Providers Care Neurophysiology Tech Name Role Phone Nehemias Barron MD Primary Care Provider [phone] Easton Thompson MD Unavailable [phone] Reason for Visit * Reason Onset Date Comments Care Transition 02/22/2014 ED f/u call Encounter Details Date Type Department Care Team (Latest Contact Info) Description 02/22/2014 Patient Outreach [facility] [address] [facility] [place] [address] Kristi Ewing RN Care Transition (ED f/u call) Social History Tobacco Use Types Packs/Day Years [...] Telephone Encounter - Kristi Ewing RN - 02/22/2014 10:14 AM EST Pt was seen in ED 02/21 for vaginal bleeding. Unable to make contact with pt at this time. Unable to leave message or contact information; no voicemail. Letter sent. documented in this encounter Plan of Treatment Not on file documented as of this encounter Visit Diagnoses Not on filedocumented in this encounter Care Teams Neurophysiology Tech Relationship Specialty Start Date End Date Nehemias Barron MD [address] [place] [id number] PCP - General 12/01/10 Easton Thompson MD [address] [place] [address] [address] [place] [address] Physician Obstetrics & Gynecology 01/29/14 documented as of this encounter
--- OUTSIDE RECORDS SUMMARY | 2024-03-07 05:09 | XMS_ITS | Encounter Summary ---
Author [place] [address] Care Team Providers Care Product Trainer Name Role Phone Nehemias Barron MD Primary Care Provider [phone] Easton Thompson MD Unavailable [phone] Encounter Details Date Type Department Care Team (Latest Contact Info) Description 01/29/2014 8:33 PM EDT - 01/29/2014 11:59 PM EDT Hospital Encounter [facility] [place] [address] Absence of menstruation (Primary Dx) Discharge Disposition: Home or Self [...] this encounter Medications at Time of Discharge amoxicillin-clavula néstor (AUGMENTIN) 875-125 mg Oral TabletIndications:C ervical lymphadenitis Take 1 tablet by mouth 2 times daily for 10 days. 20 tablet 0 01/22/2014 4 documented as of this encounter Discharge Disposition Disposition Code Departure Means Destination Home or Self Care documented in this encounter Miscellaneous Notes * Miscellaneous - Unknown, Unknown - 01/29/2014 8:33 PM EDT documented in this encounter Plan of Treatment Not on file documented as of this encounter Procedures Procedure Name Priority Date/Time Associated Diagnosis Comments URINE CULTURE (NO STAIN) Routine 01/29/2014 3:00 PM EDT Absence of menstruation documented in this encounter Results * URINE CULTURE (01/29/2014 3:00 PM EDT) Final No growth at 2 days. [facility] Urine specimen (specimen) 01/29/2014 3:00 PM EDT 01/29/2014 8:48 PM EDT us Cathie Pena DO MICROBIOLOGY - GEN ERAL ORDERABLES Final Result [facility] [address] [place] [address] documented in this encounter Visit Diagnoses Diagnosis Absence of menstruation- Primary documented in this encounter Care Teams Product Trainer Relationship Specialty Start Date End Date Nehemias Barron MD [address] [place] [phone] PCP - General 12/01/10 Easton Thompson MD [address] [place] [address] [address] [place] [address] Physician Obstetrics & Gynecology 01/29/14 documented as of this encounter
--- OUTSIDE RECORDS SUMMARY | 2024-03-07 05:09 | XMS_ITS | Encounter Summary ---
Author Organization [place] [address] Care Team Providers Care Bead Trimmer Name Role Phone Nehemias Barron MD Primary Care Provider [phone] Reason for Visit * Reason Comments Abdominal Pain patient states she i s 8 weeks preg with second child, has had sharp pains on and off today to right lower abd, painful intercourse, and burning with urination, denies fever; at times lightheaded when up, has appointment with Dr cheatham in [place] but has not seen anyone yet Encounter Details Date Type Department Care Team (Late st Contact Info) Description 01/25/2014 4:49 AM EDT - 01/25/2014 8:53 AM EDT [facility] [address] [place] [address] Erik Solares MD [address] [place] [id number] Pelvic Pain Complicating (Primary Dx) Discharge Disposition: Home or Self [...] Sign Reading Time Taken Comments Blood Pressure 105/52 01/25/2014 5:50 AM EDT Pulse 106 01/25/2014 4:57 AM EDT Temperature 36.6 ??C (97.8 ??F) 01/25/2014 4:57 AM ED T Respiratory Rate 18 01/25/2014 5:50 AM EDT Oxygen Saturation 98% 01/25/2014 5:50 AM EDT Inhaled Oxygen Concentration - - Weight 62.6 kg (138 lb) 01/25/2014 4:57 AM EDT Height 165.1 cm (5' 5 ) 01/25/2014 4:57 AM EDT Body Mass Index 22.96 01/25/2014 4:57 AM EDT documented in this encounter Discharge Instructions * Discharge Instructions* Erik Solares MD - 01/25/2014 6:44 AM EDT Keep appointment with ASSISTANT CONSTRUCTION SUPERINTENDENT. Tylenol for pain. Return to ED if vaginal bleeding or increased pain. * Attachments The following attachments cannot be sent through Care Everywhere. * ABDOMINAL PAIN DURING (SWISS) documented in this encounter Medications at Time of Discharge amoxicillin-clavula néstor (AUGMENTIN) 875-125 mg Oral TabletIndications:C ervical lymphadenitis Take 1 tablet by mouth 2 times daily for 10 days. 20 tablet 0 01/22/2014 4 documented as of this encounter Discharge Disposition Disposition Code Departure Means Destination Home or Self Half-Way documented in this encounter ED Notes * Tori Hernández RN - 01/25/2014 7:05 AM EDT Patient remains npo for ultrasound, bedside report given to Carmen Neumann RN * Erik Solares MD - 01/25/2014 4:59 AM EDT CHIEF COMPLAINT Chief Complaint Patient presents with ??? Abdominal Pain patient states she is 8 weeks preg with second child, has had sharp pains on and off today to rightlower abd, painful intercourse, and burning with urination, denies fever; at times lightheaded whenup, has appointment with Dr cheatham in [place] but has not seen anyone yet [facility] Bonny Gautam is a 23 y.o. female who presents Pelvic pain and . The patient states she is about 8 weeks . She is 2 para 1 abortus 0. She has been having sharp right lower quadrant abdominal pain. The patient states she has been having some cramping ever since she was recently having some sharp right-sided abdominal pain which was worse when she turns or bends. She was laying on her left side this morning and had sudden sharp right lower quadrant abdominal pain. The patient has had no vaginal bleeding. The patient has had previous appendectomy. The patient has not had an ultrasound seen an OB yet. She also states she's been having some painful intercourse and had some mild dysuria. No hematuria. No flank pain and no history of kidney stone. Patient states he has only had intercourse twice and she found that she was and both times she did have pelvic pain with intercourse. The patient does have a history of ovarian cyst. The patient describesthe pain as a burning sensation which is worse if she bends or turns. REVIEW OF SYSTEMS See HPI for further [...] Surgeon: Sachin Castellanos MD; Location: [facility]; Service: Gynecology CURRENT MEDICATIONS Current Outpatient Rx Name Route Sig Dispense Refill ??? amoxicillin-clavulanate (AUGMENTIN) 875-125 mg Oral Tablet Oral Take 1 tablet by mouth 2 times daily for 10 days. 20 tablet 0 ??? PNV Comb.[id number],Carbonyl-FA (PRENATABS RX) 29 mg iron- 1 mg Oral Tablet Oral Take 1 tablet by mouth daily. 90 tablet 3 ALLERGIES Allergies Allergen Reactions ??? Sulfa (Sulfonamide Antibiotics) Swelling and Rash throat closes up, rash, and red everywhere PHYSICAL EXAM VITAL SIGNS: BP 98/46 Pulse 106 Temp(Src) 97.8 ??F (36.6 ??C) Resp 18 Ht 5' 5 (1.651 m) Wt 138 lb (62.596 kg) BMI 22.96 kg/m2 SpO2 99% LMP 11/28/2013 Constitutional: Well developed, Well nourished, No acute distress, Non-toxic appearance. HENT: Normocephalic, Atraumatic, Bilateral external ears normal, Oropharynx moist, No oral exudates, Nose normal. Eyes: PERRL, Conjunctiva normal, No discharge. Neck: Normal range of motion, No tenderness, Supple, No stridor. Lymphatic: No lymphadenopathy noted. Cardiovascular: Normal heart rate, Normal rhythm, No murmurs, No rubs, No gallops. Thorax & Lungs: Normal breath sounds, No respiratory distress, No wheezing, No chest tenderness. Abdomen: soft abdomen with right lower quadrant pelvic area tenderness. No rebound guarding or peritoneal signs. Skin: Warm, Dry, No erythema, No rash. Back: No tenderness, No CVA tenderness. Extremities: Intact distal pulses, No edema, No tenderness, No cyanosis, No clubbing. Neurologic: Alert & oriented x 3, Normal motor function, No focal deficits noted. 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 Os is closed there is no blood or tissue. Right adnexal tenderness with no mass felt. Uterus is nontender. RADIOLOGY/PROCEDURES Results for orders placed during the hospital encounter of 01/25/14 TRICHOMONAS AG Result Value Range Trichomonas Ag Negative CBC WITH AUTO DIFF Result Value Range WBC 4.7 4.0 - 11.0 x10(3)/mcL RBC 3.84 3.80 - 5.10 x10(6)/mcL Hgb 12.3 12.0 - 15.6 gm/dL Hct 35.4 (*) 35.7 - 45.9 % MCV 92.1 82.5 - 99.8 fL MCH 32.1 27.0 - 34.3 pg MCHC 34.9 32.1 - 35.3 gm/dL RDW 11.8 11.5 - 15.0 % Platelet 173 144 - 423 x10(3)/mcL MPV 8.8 6.8 - 10.8 fL URINALYSIS Result Value Range UA Color Yellow UA Appear Slightly Hazy (*) Clear UA Glucose Negative Negative UA Ketones Negative Negative UA Blood Trace (*) Negative UA pH 6.0 5.0 - 8.0 UA Protein Negative Negative UA Urobilinogen 2 mg/dl (*) <=1 mg/dl UA Nitrite Negative Negative UA Leuk Est Negative Negative UA Spec Grav 1.025 1.001 - 1.035 UA WBC 0 UA RBC 1-3 UA Squam Epi Rare UA Amorph Trace UA Bacteria Trace HUMAN CHORIONIC GONADOTROPIN QUANTITATIVE Result Value Range hCG Quant 99840 DIFFERENTIAL Result Value Range Neut Percent 56.3 Lymph Percent 25.7 Prentiss Percent 7.0 Eos Percent 9.2 Baso Percent 1.8 Neut# 2.6 1.8 - 7.7 x10(3)/mcL Lymph# 1.2 0.6 - 4.8 x10(3)/mcL Prentiss# 0.3 0.0 - 1.3 x10(3)/mcL Eos# 0.4 0.0 - 0.5 x10(3)/mcL Baso# 0.1 0.0 - 0.2 x10(3)/mcL COURSE & MEDICAL DECISION MAKING Pertinent Labs & Imaging studies reviewed. (See chart for details) 5:53 AM Patient is feeling much better after IV fluids and IV morphine. Abdomen exam decreased tenderness. Still awaiting results of quantitative hCG. Number exam reveals no peritoneal signs. 6:43 AM Patient resting comfortably. No complaints.soft nontender abdomen. FINAL IMPRESSION Pelvic pain in This chart was completed using voice recognition technology and may contain unintended errors Erik Solares MD 01/25/14 [id number] documented in this encounter Plan of Treatment Pending Results Name Type Priority Associated Diagnoses Date /Time CHLAMYDIA/GC PROBE GENITAL SWAB Microbiology STAT 01/25/2014 5:04 AM EDT Scheduled Orders Name Type Priority Associated Diagnoses Orde r Schedule CHLAMYDIA/GC PROBE GENITAL SWAB Microbiology STAT STAT for 1 Occur rences starting 01/25/2014 until 01/25/2014 documented as of this encounter Procedures Procedure Name Priority Date/Time Associated Diagnosis Comments HB US PREG UTERUS <14WK-0, SNGL STAT 01/25/2014 7:52 AM EDT .CHL/GC GENITAL RESULTS STAT 01/25/2014 5:24 AM EDT DIFFERENTIAL STAT 01/25/2014 5:24 AM EDT CBC WITH DIFF STAT 01/25/2014 5:24 AM EDT HUMAN CHORIONIC GONADOTROPIN QUANTITATIVE STAT 01/25/2014 5:24 AM EDT TRICHOMONAS AG STAT 01/25/2014 5:15 AM EDT URINALYSIS STAT 01/25/2014 5:06 AM EDT documented in this encounter Results * US OB <14 WEEKS FIRST GESTATION AND OB TRANSVAGINAL (01/25/2014 7:52 AM EDT) Anatomical Region Laterality Modality Pelvis Ultrasound 01/25/2014 7:52 AM EDT Impressions 01/25/2014 8:38 AM EDT IMPRESSION: 1. Evidence of intrauterine . Estimated gestational age of 6 weeks 6 days based on mean sac diameter and 6 weeks 2 days based on crown-rump length. 2. Suspected small subchorionic hematoma, measuring less than 1 cm in size. 3. Nonspecific 2.2 cm hyperechoic lesion in the right ovary, which may represent an involuting corpus luteal cyst or hemorrhagic cyst. Attention on followup ultrasounds is advised. Narrative 01/25/2014 8:38 AM EDT Transvaginal first trimester OB pelvic ultrasound dated 01/25/2014 COMPARISON: No recent prior ultrasound for comparison HISTORY: Right lower quadrant pain, quantitative beta-hCG level of 21,729 FINDINGS: Uterus is anteverted in orientation, measuring 9.4 x 5.6 x 6.5 cm. Uterus contains a gestational sac at the fundus, which has a mean sac diameter of 20 mm, giving an estimated gestational age of 6 weeks 6 days. The gestational sac contains a yolk sac which measures 6 mm in diameter. There is a pole which has a crown-rump length of nearly 4 mm, giving an estimated gestational age of 6 weeks 2 days. Waiter/Waitress Head reportedly detected heart tones with heart rate calculated at 106 beats per minute on Doppler. Prominent periuterine vessels are noted. There is a small focus of hypoechogenicity adjacent to the gestational sac which measures less than 1 cm in size. This is suspect for small subchorionic hematoma. No significant free fluid is seen. On transvaginal images, the right ovary measures 4.4 x 3.0 x 3.5 cm. It contains a circumscribed mildly hyperechoic lesion measuring 2.2 x 1.8 x 1.9 cm. Left ovary measures 2.7 x 1.2 x 1.3 cm. Left ovary is within normal limits, containing small follicles. No other dominant cystic or solid adnexal mass identified. Procedure Note Balaji Martino MD - 01/25/2014 Transvaginal first trimester OB pelvic ultrasound dated 01/25/2014 COMPARISON: No recent prior ultrasound for comparison HISTORY: Right lower quadrant pain, quantitative beta-hCG level of21,729 FINDINGS: Uterus is anteverted in orientation, measuring 9.4 x 5.6 x 6.5 cm. Uteruscontains a gestational sac at the fundus, which has a mean sac diameter of 20 mm,giving an estimated gestational age of 6 weeks 6 days. The gestational sac contains a yolk sacwhich measures 6 mm in diameter. There is a pole which has a crown-rump length of nearly4 mm, giving an estimated gestational age of 6 weeks 2 days. Waiter/Waitress Head reportedlydetected heart tones with heart rate calculated at 106 beats per minute on Doppler.Prominent periuterine vessels are noted. There is a small focus of hypoechogenicity adjacent tothe gestational sac which measures less than 1 cm in size. This is suspect for smallsubchorionic hematoma. No significant free fluid is seen. On transvaginal images, the right ovary measures 4.4 x 3.0 x 3.5 cm. Itcontains a circumscribed mildly hyperechoic lesion measuring 2.2 x 1.8 x 1.9 cm. Leftovary measures 2.7 x 1.2 x 1.3 cm. Left ovary is within normal limits, containing smallfollicles. No other dominant cystic or solid adnexal mass identified. IMPRESSION: 1. Evidence of intrauterine . Estimated gestational age of 6weeks 6 days based on mean sac diameter and 6 weeks 2 days based on crown-rump length. 2. Suspected small subchorionic hematoma, measuring less than 1 cm insize. 3. Nonspecific 2.2 cm hyperechoic lesion in the right ovary, which mayrepresent an involuting corpus luteal cyst or hemorrhagic cyst. Attention on followup perinatalultrasounds is advised. us Erik Solares MD [facility] ORDERABLES Final Resul t * .CHL/GC GENITAL RESULTS (01/25/2014 5:24 AM EDT) C. trachomatis/N. gonorrhoeae Specimen Genital [facility] Comment: Test methodology is amplified DNA probe using [employer] ??A negative result does not rule out the presence of DNA in concentrations below the level of detection of the assay. The performance characteristics of this test were validated by [facility]. ??This laboratory is authorized under the Clinical Laboratory Improvement Amendments (CLIA) as qualified to perform high-complexity testing. ??Compliance statement is available in the Laboratory. Extraction of genetic material from urine and Thin Prep samples was performed using a method that was developed and validated in the performing laboratory. Detailed methodology is available upon request. In ??rare instances, non-pathogenic strains of Neisseria may cross react and give a false positive result for N. gonorrhea. ??If concerned that this cross reactivity has occurred, please recollect and submit for genital culture prior to treatment. ?? The performance of this test has not been verified in minor aged patients. This test is indicated for medical purposes only. Chlamydia trachomatis Negative [facility] Neisseria gonorrhoeae Negative [facility] Genital 01/25/2014 5:24 AM EDT 01/25/2014 9:07 AM EDT Erik Solares MD MICROBIOLOGY - GENERAL ORDERA [facility] Edited Result - Final [facility] [address] [place] [address] * DIFFERENTIAL (01/25/2014 5:24 AM EDT) Neut Percent 56.3 % [facility] Lymph Percent 25.7 % [facility] Prentiss Percent 7.0 % [facility] Eos Percent 9.2 % [facility] Baso Percent 1.8 % [facility] Neut# 2.6 1.8 - 7.7 x10(3)/mcL [facility] Lymph# 1.2 0.6 - 4.8 x10(3)/mcL [facility] Prentiss# 0.3 0.0 - 1.3 x10(3)/mcL [facility] Eos# 0.4 0.0 - 0.5 x10(3)/mcL [facility] Baso# 0.1 0.0 - 0.2 x10(3)/[facility] Blood specimen (specimen) 01/25/2014 5:24 AM EDT 01/25/2014 5:26 AM EDT Erik Solares MD HEMATOLOGY ORDERABLES Final R esult Performing Organization Address City/[facility]/ZIP Co de Phone Number [facility] [address] [place] [address] * HUMAN CHORIONIC GONADOTROPIN QUANTITATIVE (01/25/2014 5:24 AM EDT) hCG Quant 21,729 mIU/mL [facility] Blood specimen (specimen) UPPER LIMB STRUCTURE / Unknown 01/25/2014 5:24 AM EDT 01/25/2014 5:26 AM EDT Erik Solares MD CHEMISTRY ORDERABLES Final Re sult Performing Organization Address [facility] Co de Phone Number [facility] [address] [place] [address] * (ABNORMAL) CBC WITH AUTO DIFF (01/25/2014 5:24 AM EDT) Pathologist [facility] WBC 4.7 4.0 - 11.0 x10(3)/mcL [facility] RBC 3.84 3.80 - 5.10 x10(6)/mcL [facility] Hgb 12.3 12.0 - 15.6 gm/dL [facility] Hct 35.4(L) 35.7 - 45.9 % [facility] MCV 92.1 82.5 - 99.8 fL [facility] MCH 32.1 27.0 - 34.3 pg [facility] MCHC 34.9 32.1 - 35.3 gm/dL [facility] RDW 11.8 11.5 - 15.0 % [facility] Platelet 173 144 - 423 x10(3)/mcL [facility] MPV 8.8 6.8 - 10.8 fL [facility] Blood specimen (specimen) UPPER LIMB STRUCTURE / Unknown 01/25/2014 5:24 AM EDT 01/25/2014 5:26 AM EDT Erik Solares MD HEMATOLOGY ORDERABLES Final R esult Performing Organization Address City/[facility]/ZIP Co de Phone Number [facility] [address] [place] [address] * TRICHOMONAS AG (01/25/2014 5:15 AM EDT) Pathologist [facility] Trichomonas Ag Negative [facility] Vaginal 01/25/2014 5:15 AM EDT 01/25/2014 5:26 AM EDT Erik Solares MD MICROBIOLOGY - GENERAL ORDERA BLES Final Result Performing Organization Address [facility] Co de Phone Number [facility] [address] [place] [address] * (ABNORMAL) URINALYSIS (01/25/2014 5:06 AM EDT) UA Color Yellow [facility] UA Appear Slightly Hazy(A) Clear [facility] UA Glucose Negative Negative [facility] UA Ketones Negative Negative [facility] UA Blood Trace(A) Negative [facility] UA pH 6.0 5.0 - 8.0 [facility] UA Protein Negative Negative [facility] UA Urobilinogen 2 mg/dl(A) <=1 mg/dl [facility] UA Nitrite Negative Negative [facility] UA Leuk Est Negative Negative [facility] UA Spec Grav 1.025 1.001 - 1.035 [facility] UA WBC 0 /HPF [facility] UA RBC 1-3 /HPF [facility] UA Squam Epi Rare [facility] UA Amorph Trace [facility] UA Bacteria Trace [facility] Urine specimen (specimen) 01/25/2014 5:06 AM EDT 01/25/2014 5:26 AM EDT Erik Solares MD URINE ORDERABLES Final Result Performing Organization Address [facility] de Phone Number [facility] [address] [place] [address] documented in this encounter Visit Diagnoses Diagnosis Pelvic pain complicating - Primary Other specified complication of , unspecified as to episode of care Other specified complication, antepartum(646.83) Other specified complication, antepartum Unspecified symptom associated with female genital organs documented in this encounter Administered Medications Inactive Administered Medications - up to 1 most recent administrations Medication Order MAR Action Action Date Dose Rate Site 0.9 % NaCl infusion Intravenous, at 125 mL/hr, CONTINUOUS, Starting on Tue01/25/14 at 0515, Until Tue01/25/14 at 1253 New Bag 01/25/2014 5:30 AM EDT 125 mL/hr 125 mL/hr acetaminophen (TYLENOL) tablet 1,000 mg 1,000 mg, Oral, ONCE, 1 dose, On Tue01/25/14 at 0815, Maximum adult dose of acetaminophen is 4000 mg from all sources in 24 hours. Given 01/25/2014 8:29 AM EDT 1,000 mg morphine injection 4 mg 4 mg, Intravenous, ONCE, 1 dose, On Tue01/25/14 at 0515 Given 01/25/2014 5:29 AM EDT 4 mg ondansetron (ZOFRAN) 4 mg/2 mL injection 4 mg 4 mg, Intravenous, ONCE, 1 dose, On Tue01/25/14 at 0515 Given 01/25/2014 5:29 AM EDT 4 mg documented in this encounter Active and Recently Administered Medications Times are shown in EDT. Scheduled Medication Order 01/23/2014 01/24/2014 01/25/2014 acetaminophen (TYLENOL) tablet 1,000 mg (COMPLETED) 1,000 mg, Oral, ONCE, 1 dose, On Tue01/25/14 at 0815, Maximum adult dose of acetaminophen is 4000 mg from all sources in 24 hours. 0829 (Given - Provid er: Carmen Neumann RN) morphine injection 4 mg (COMPLETED) 4 mg, Intravenous, ONCE, 1 dose, On Tue01/25/14 at 0515 0529 (Given - Provid er: Tori Hernández RN) ondansetron (ZOFRAN) 4 mg/2 mL injection 4 mg (COMPLETED) 4 mg, Intravenous, ONCE, 1 dose, On Tue01/25/14 at 0515 0529 (Given - Provid er: Tori Hernández RN) Continuous Medication Order 01/23/2014 01/24/2014 01/25/2014 0.9 % NaCl infusion (CANCELED) Intravenous, at 125 mL/hr, CONTINUOUS, Starting on Tue01/25/14 at 0515, Until Tue01/25/14 at 1253 0530 (New Bag - Prov ider: Tori Hernández RN)[id number] (Stopped - Provider: Carmen Neumann RN) documented in this encounter Orders Nursing Count Last Ordered Date First Orde red Date SET UP FOR PELVIC EXAM 1 01/25/2014 documented in this encounter Care Teams Bead Trimmer Relationship Specialty Start Date End Date Nehemias Barron MD [address] [place] [id number] PCP - General 12/01/10 documented as of this encounter
--- OUTSIDE RECORDS SUMMARY | 2024-03-07 05:09 | XMS_ITS | Encounter Summary ---
Author Organization [place] [address] Care Team Providers Care Director Web Name Role Phone Nehemias Barron MD Primary Care Provider [phone] Easton Thompson MD Unavailable [phone] Reason for Referral * Consultation (Routine) - Closed Specialty Diagnoses / Procedures Referred By Contac t Referred To Contact Diagnoses Lymphadenopathy, cervical Nehemias Barron MD [address] [place] [address] Phone: tel: fax: Srinath Gil MD Phone: tel: fax: Referral ID Status Reason Start Date Expiration Date Visits Re quested Visits Authorized [id number] Closed 04/29/2014 04/29/2015 1 1 Reason for Visit * Reason Comments Head Lice Encounter Details Date Type Department Care Team (Latest Contact Info) Description 04/29/2014 9:00 AM EST Office Visit [facility] [address] [place] [address] Nehemias Barron MD [address] [place] [address] Lymphadenopathy, cervical (Primary Dx); Head lice; Scabies Social History Tobacco Use Types Packs/Day Years Used Date Smoking Tobacco: Every Day Cigarettes 0.5 8 Smokeless Tobacco: Never Tobacco Cessation:Ready to Q uit: No; Counseling Given: Yes Comments:info refused Alcohol Use Standard [...] Reading Time Taken Comments Blood Pressure 100/60 04/29/2014 9:01 AM EST Pulse 60 04/29/2014 9:01 AM EST Temperature 36.9 ??C (98.4 ??F) 04/29/2014 9:01 AM ES T Respiratory Rate - - Oxygen Saturation - - Inhaled Oxygen Concentration - - Weight 61 kg (134 lb 6.4 oz) 04/29/2014 9:01 AM EST Height - - Body Mass Index 22.37 02/19/2014 2:02 PM EST documented in this encounter Ordered Prescriptions Prescription Sig Dispense Quantity Refills Last Filled Start Date End Date permethrin (ELIMITE) 5 % Top CreamIndications: Scabies Apply topically See Admin Instructions for 7 days. Apply repeat in 1 week if needed. 60 g 1 04/29/2014 5 malathion (OVIDE) 0.5 % Top LotionIndications :Head lice Apply topically See Admin Instructions. See admin instructions. 1 Bottle 1 04/29/2014 6 documented in this encounter Progress Notes * Nehemias Barron MD - 04/29/2014 9:10 AM EST Subjective Subjective: Patient ID: oBnny Gautam is a 23 y.o. female. Chief Complaint Patient presents with ??? Head Lice Head Lice Head lice, tried nix not effective perisistant knots in neck Took abx but not resolved Patients past medical, family and social histories were reviewed and updated. There were no changesexcept as noted. Review of Systems All other systems reviewed and are negative. Objective Objective: Filed Vitals: 04/29/14 0901 BP: 100/60 Pulse: 60 Temp: 98.4 ??F (36.9 ??C) TempSrc: Forehead Weight: 134 lb 6.4 oz (60.963 kg) Body mass index is 22.37 kg/(m^2). Physical Exam Constitutional: She is oriented to person, place, and time. She appears well- developed and well-nourished. No distress. HENT: Mouth/Throat: Oropharynx is clear and moist. Eyes: Conjunctivae are normal. Pupils are equal, round, and reactive to light. No scleral icterus. Neck: Normal range of motion. Neck supple. No thyromegaly present. Cardiovascular: Normal rate, regular rhythm and normal heart sounds. No murmur heard. Pulmonary/Chest: Effort normal and breath sounds normal. No respiratory distress. She has no wheezes. She has no rales. She exhibits no tenderness. Abdominal: Soft. Bowel sounds are normal. She exhibits no distension and no mass. There is no tenderness. There is no rebound and no guarding. Musculoskeletal: Normal range of motion. She exhibits no edema or tenderness. Lymphadenopathy: She has cervical adenopathy (several posterior LN's 2 cm approx, non tender, no axillary or inguinal LA). Neurological: She is alert and oriented to person, place, and time. Skin: Rash (head lice, scapites) noted. Assessment and Plan: Bonny was seen today for head lice. Diagnoses and associated orders for this visit: Lymphadenopathy, cervical - ENT Head lice - malathion (OVIDE) 0.5 % Top Lotion; Apply topically See Admin Instructions. See admin instructions. Scabies - permethrin (ELIMITE) 5 % Top Cream; Apply topically See Admin Instructions for 7 days. Apply repeat in 1 week if needed. Educated patient regarding the care plan and instructions listed on the After Visit Summary [AVS] for today's visit. The patient verbalized full understanding of the care plan and instructions given on the AVS for today's visit. Return if symptoms worsen or fail to improve. documented in this encounter Plan of Treatment Scheduled Referrals Name Type Priority Associated Diagnoses Orde r Schedule AMB REFERRAL TO ENT Outpatient Referral Routine Lymphadenopathy, cervical Ordered: 04/29/2014 documented as of this encounter Visit Diagnoses Diagnosis Lymphadenopathy, cervical- Primary Head lice Pediculus capitis (head louse) Scabies documented in this encounter Discontinued Medications Medication Sig Discontinue Reason Start Date End Da te ondansetron (ZOFRAN ODT) 4 mg Oral Tablet, Rapid Dissolve Take 1 tablet by mouth every 6 hours as needed for Nausea. DELETE-Therapy completed 02/21/2014 04/29/2014 ondansetron (ZOFRAN-ODT) 4 mg Oral Tablet, Rapid Dissolve Take 1 tablet by mouth every 4 hours as needed for Nausea. DELETE-Therapy completed 02/18/2014 04/29/2014 oxyCODONE-acetaminophe n (PERCOCET) 5-325 mg Oral Tablet Take 1 tablet by mouth every 4 hours as needed for Pain. DELETE-Therapy completed 02/20/2014 04/29/2014 PNV Comb.Nf38-Hwqn,Carbony l-FA (PRENATABS RX) 29 mg iron- 1 mg Oral TabletIndications:Preg nant Take 1 tablet by mouth daily. DELETE-Therapy completed 01/22/2014 04/29/2014 documented as of this encounter Care Teams Director Web Relationship Specialty Start Date End Date Nehemias Barron MD [address] [facility] [address] PCP - General 12/01/10 Easton Thompson MD [address] [place] [address] [address] [place] [address] Physician Obstetrics & Gynecology 01/29/14 documented as of this encounter
--- OUTSIDE RECORDS SUMMARY | 2024-03-07 05:09 | XMS_ITS | Encounter Summary ---
Author Organization [place] [address] Care Team Providers Care Point Of Care Technician Name Role Phone Nehemias Barron MD Primary Care Provider [phone] Reason for Referral * Consultation (Routine) - Closed Specialty Diagnoses / Procedures Referred By Contac t Referred To Contact Dermatology Diagnoses Psoriasis Nehemias Barron MD [address] [place] [address] Phone: tel: fax: Marcos Diaz MD [address] [facility] [place] [address] Phone: tel: fax: Referral ID Status Reason Start Date Expiration Date V isits Requested Visits Authorized [id number] Closed Specialty Services Required 01/22/2014 01/22/2015 1 1 Comments Pt has appt just needs referral * Consultation (Routine) - Closed Specialty Diagnoses / Procedures Referred By Contac t Referred To Contact Obstetrics & Gynecology / Obstetrics and Gynecology Diagnoses Nehemias Barron MD [address] [place] [address] Phone: tel: fax: Referral ID Status Reason Start Date Expiration Date Visits Re quested Visits Authorized [id number] Closed 01/22/2014 01/22/2015 1 1 Reason for Visit * Reason Comments Bleeding/Bruising Lymphadenopathy Referral to dermatology and o bgyn Encounter Details Date Type Department Care Team (Latest Contact Info) Description 01/22/2014 2:45 PM EDT Office Visit [facility] [address] [place] [address] Nehemias Barron MD [address] [place] [address] Cervical lymphadenitis (Primary Dx); Psoriasis; Hx of malignant melanoma of skin; ; Abnormal bruising Social History Tobacco Use Types Packs/Day Years Used Date Smoking Tobacco: Every Day Cigarettes 0.5 7 Smokeless Tobacco: Never Tobacco Cessation:Counseling Given: Yes [...] Sign Reading Time Taken Comments Blood Pressure 112/60 01/22/2014 2:52 PM EDT Pulse 74 01/22/2014 2:52 PM EDT Temperature 37.3 ??C (99.2 ??F) 01/22/2014 2:52 PM ED T Respiratory Rate - - Oxygen Saturation - - Inhaled Oxygen Concentration - - Weight 60.1 kg (132 lb 9.6 oz) 01/22/2014 2:52 P M EDT Height - - Body Mass Index 22.07 01/03/2014 1:29 AM EDT documented in this encounter Ordered Prescriptions Prescription Sig Dispense Quantity Refills Last Filled Start Date End Date PNV Comb.Yt11-Fzkw,Carb onyl-FA (PRENATABS RX) 29 mg iron- 1 mg Oral TabletIndications:P regnant Take 1 tablet by mouth daily. 90 tablet 3 01/22/2014 5 amoxicillin-clavula néstor (AUGMENTIN) 875-125 mg Oral TabletIndications:C ervical lymphadenitis Take 1 tablet by mouth 2 times daily for 10 days. 20 tablet 0 01/22/2014 4 documented in this encounter Progress Notes * Nehemias Barron MD - 01/22/2014 3:04 PM EDT Subjective: Patient ID: Bonny Gautam is a 23 y.o. female. Chief Complaint Patient presents with ??? Bleeding/Bruising ??? Lymphadenopathy ??? 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 There were no changesexcept as noted. Review of Systems All other systems reviewed and are negative. Objective: Filed Vitals: 01/22/14 1452 BP: 112/60 Pulse: 74 Temp: 99.2 ??F (37.3 ??C) TempSrc: Forehead Weight: 132 lb 9.6 oz (60.147 kg) Body mass index is 22.07 kg/(m^2). Physical Exam Constitutional: She is oriented [...] range of motion. She exhibits no edema and no tenderness. Neurological: She is alert and oriented to person, place, and time. Assessment and Plan: Bonny was seen today for bleeding/bruising, lymphadenopathy and referral. Diagnoses and associated orders for this visit: Cervical lymphadenitis - amoxicillin-clavulanate (AUGMENTIN) 875-125 mg Oral Tablet; Take 1 tablet by mouth 2 times daily for 10 days. Psoriasis - Cancel: Dermatology - Dermatology Hx of malignant melanoma of skin - Cancel: Dermatology - Obstetrics / Gynecology - PNV Comb.Pb36-Geap,Carbonyl-FA (PRENATABS RX) 29 mg iron- 1 mg Oral Tablet; Take 1 tablet by mouth daily. Abnormal bruising - Partial Thromboplastin Time - Lab Collect; Future - PT/INR - Lab Collect; Future - CBC - Clinic Collect; Future - PFA-100 Platelet Function Analysis; Future No Follow-up on file. documented in this encounter Plan of Treatment Scheduled Referrals Name Type Priority Associated Diagnoses Order Schedule AMB REFERRAL TO OB-[facility] [facility] Outpatient Referral Routine Ordered: 01/22/2014 AMB REFERRAL TO DERMATOLOGY Outpatient Referral Routine Psoriasis Ordered: 01/22/2014 documented as of this encounter Results * PFA-100 PLATELET FUNCTION ANALYSIS (01/22/2014 3:54 PM EDT) [facility] PFA ADP 82 59 - 104 second(s) [facility] PFA EPI 112 70 - 150 second(s) [facility] PFA Interp Platelet function is normal. ??If history/physi bell exam indicate bleeding disorder, and repeat test is normal, consider testing for factor deficiencies. ??With very recent history of bleeding, factors (vWF) may rise to normal levels. ??Normal platelet function in patients taking aspirin may identify ASA non-responder s (8-45% of the population), an increased risk for in Acute Coronary Syndrome. [facility] PFA Interp Normal PFA [facility] Hematocrit PFA 35.8 35.0 - 45.0 % [facility] Platelet PFT 181 150 - 400 x10(3)/mc L [facility] Blood specimen (specimen) 01/22/2014 3:54 PM EDT 01/22/2014 6:17 PM EDT us Nehemias Barron MD HEMATOLOGY ORDERABLES Final R esult [facility] [address] [place] [address] * (ABNORMAL) CBC (01/22/2014 3:54 PM EDT) WBC 4.6 4.0 - 11.0 x10(3)/mcL [facility] RBC 3.78(L) 3.80 - 5.10 x10(6)/mcL [facility] Hgb 12.1 12.0 - 15.6 gm/dL [facility] Hct 34.9(L) 35.7 - 45.9 % [facility] MCV 92.5 82.5 - 99.8 fL [facility] MCH 32.0 27.0 - 34.3 pg [facility] MCHC 34.6 32.1 - 35.3 gm/dL [facility] RDW 11.9 11.5 - 15.0 % [facility] Platelet 178 144 - 423 x10(3)/mcL [facility] MPV 8.8 6.8 - 10.8 fL [facility] Blood specimen (specimen) UPPER LIMB STRUCTURE / Unknown 01/22/2014 3:54 PM EDT 01/22/2014 3:54 PM EDT Nehemias Barron MD HEMATOLOGY ORDERABLES Final R esult Performing Organization Address [facility] Co de Phone Number [facility] [address] [place] [address] * (ABNORMAL) PT / INR (01/22/2014 3:54 PM EDT) PT 12.4(H) 9.9 - 12.3 second(s) [facility] INR 1.16(H) 0.90 - 1.11 [facility] Comment: Level of Therapy ??Indications ??Target INR Range Standard Dose Treatment and prophylaxis of venous 2.0 - 3.0 ??thrombosis, pulmonary embolism ?High Dose High risk patients with mechanical ?2.5 - 3.5 ??heart valves Blood specimen (specimen) UPPER LIMB STRUCTURE / Unknown 01/22/2014 3:54 PM EDT 01/22/2014 3:54 PM EDT Nehemias Barron MD HEMATOLOGY ORDERABLES Final R esult [facility] [address] [place] [address] * PARTIAL THROMBOPLASTIN TIME (01/22/2014 3:54 PM EDT) PTT 27.8 22.3 - 33.1 second(s) [facility] Comment: Therapeutic range for direct thrombin inhibitors: Argatroban is 1.5 to 3 times the aPTT baseline. Lepirudin is 1.5 to 2 times the aPTT baseline. The aPTT should not exceed 100 seconds. The dosage of Argatroban should be decreased in patients with hepatic impairment. ??The dosage of Lepirudin should be decreased in renal insufficiency. The aPTT is no longer the appropriate test to monitor unfractionated heparin anticoagulation. Blood specimen (specimen) UPPER LIMB STRUCTURE / Unknown 01/22/2014 3:54 PM EDT 01/22/2014 3:54 PM EDT us Nehemias Barron MD HEMATOLOGY ORDERABLES Final R esult Performing Organization Address [facility] Co de Phone Number [facility] [address] [place] [address] documented in this encounter Visit Diagnoses Diagnosis Cervical lymphadenitis- Primary Lymphadenitis, unspecified, except mesenteric Psoriasis Other psoriasis Hx of malignant melanoma of skin Personal history of malignant melanoma of skin Abnormal bruising Other symptoms involving skin and integumentary tissues documented in this encounter Care Teams Point Of Care Technician Relationship Specialty Start Date End Date Nehemias Barron MD [address] [place] [address] PCP - General 12/01/10 documented as of this encounter
--- OUTSIDE RECORDS SUMMARY | 2024-03-07 05:09 | XMS_ITS | Encounter Summary ---
Author Organization [place] [address] Care Team Providers Care Glass Enamel Mixer Name Role Phone Nehemias Barron MD Primary Care Provider [phone] Reason for Visit * Reason Onset Date Comments Visit Follow Up 01/25/2014 ED f/u call Encounter Details Date Type Department Care Team (Late st Contact Info) Description 01/25/2014 Telephone [facility] [address] [facility] [place] [address] Kristi Ewing RN Visit Follow Up (ED f/u call) Social History Tobacco Use [...] Telephone Encounter - Kristi Ewing RN - 01/25/2014 1:49 PM EDT Pt was seen in ED 01/25 for pelvic pain in . Pt states, I'm fine now, and the baby is fine. So, all is fine right now. Pt states she has appointment with OBGYN on 01/29. Pt also states shedid notify OBGYN of ED visit. Reviewed pt discharge instructions with pt, pt verbalizes understanding. Denies any questions or concerns at this time. Left contact information with pt. documented in this encounter Plan of Treatment Not on file documented as of this encounter Visit Diagnoses Not on filedocumented in this encounter Care Teams Glass Enamel Mixer Relationship Specialty Start Date End Date Nehemias Barron MD [address] [place] [address] PCP - General 12/01/10 documented as of this encounter
--- OUTSIDE RECORDS SUMMARY | 2024-03-07 05:09 | XMS_ITS | Encounter Summary ---
Author Organization [place] [address] Care Team Providers Care Chute Man Name Role Phone Nehemias Barron MD Primary Care Provider [phone] Easton Thompson MD Unavailable [phone] Encounter Details Date Type Department Care Team (Latest Contact Info) Description 02/18/2014 3:59 AM EST - 02/18/2014 3:44 PM EST Hospital Encounter [facility] [place] [id number] Supervision of other normal , first trimester Discharge Disposition: Home or Self [...] on file documented as of this encounter Discharge Disposition Disposition Code Departure Means Destination Home or Self Care documented in this encounter Miscellaneous Notes * Miscellaneous - Unknown, Unknown - 02/19/2014 3:59 AM EST documented in this encounter Plan of Treatment Not on file documented as of this encounter Procedures Procedure Name Priority Date/Time Associated Diagnosis Comments .CHL/GC THP RESULTS Routine 02/18/2014 4 :17 AM EST BID ANALYST CYTOLOGY REPORT Routine 02/18/2014 3 :59 AM EST documented in this encounter Results * .CHL/GC THP RESULTS (02/18/2014 4:17 AM EST) C. trachomatis/N. gonorrhoeae Specimen Thin Prep [facility] Comment: Test methodology is amplified DNA probe using [employer] ??A negative result does not rule out the presence of DNA in concentrations below the level of detection of the assay. The performance characteristics of this test were validated by [facility]. ??This laboratory is authorized under the Clinical [...] for medical purposes only. Chlamydia trachomatis Negative [facility] Neisseria gonorrhoeae Negative [facility] Liquid based cytologic material (specimen) 02/18/2014 4:17 AM EST 02/19/2014 4:17 AM EST us Kash Tabares MD MICROBIOLOGY - GENERAL ORDERABL ES Edited Result - Final [facility] [address] [place] [address] * BID ANALYST CYTOLOGY REPORT (02/18/2014 3:59 AM EST) Product Safety And Standards Engineer Cytology Report ? PATIENT NAME:BONNY MCCOY ? Product Safety And Standards Engineer Cytology Report ? Accession Number ?Collected Date/Time ? Received Date/Time ? [id number] ? 02/18/14 03:59 EST ?02/19/14 04:26 EST ? GY Specimen Source ? Specimen Vag/Cerv/Endocx?: [...] definitive ? therapy. ? Processed using the CytoPherx automated cytology screening device ? (Intent). ? Motor Checker: DEE LOO ?02/21/2014 ? Completed by: ??GEETHA Nagy ?(Electronically signed by) ?02/22/2014 ?[facility] 02/18/2014 3:59 AM EST us Kash Tabares MD PATHOLOGY ORDERABLES Final Resu lt [facility] [address] [place] [address] documented in this encounter Visit Diagnoses Diagnosis Supervision of other normal , first trimester documented in this encounter Care Teams Chute Man Relationship Specialty Start Date End Date Nehemias Barron MD [address] [place] [address] PCP - General 12/01/10 Easton Thompson MD [address] [place] [address] [address] [place] [address] Physician Obstetrics & Gynecology 01/29/14 documented as of this encounter
--- OUTSIDE RECORDS SUMMARY | 2024-03-07 05:09 | XMS_ITS | Encounter Summary ---
Author Organization [place] [address] Care Team Providers Care Railway Equipment Operator Name Role Phone Nehemias Barron MD Primary Care Provider [phone] Easton Thompson MD Unavailable [phone] Reason for Visit * Reason Comments Vaginal Bleeding 8 weeks . In tercourse around 0230 noted bright red blood afterwards, says now she is spotting and color is pink. ABD cramping that is not new she has had it for a couple weeks Encounter Details Date Type Department Care Team (Late st Contact Info) Description 12/29/2014 3:28 AM EDT - 12/29/2014 4:15 AM EDT [facility] [address] [facility] [place] [address] Luc Ivory MD [address] [place] [id number] Threatened (Primary Dx) Discharge Disposition: Home or Self [...] Sign Reading Time Taken Comments Blood Pressure 114/63 12/29/2014 3:36 AM EDT Pulse 92 12/29/2014 3:36 AM EDT Temperature 36.7 ??C (98.1 ??F) 12/29/2014 3:36 AM ED T Respiratory Rate 18 12/29/2014 3:36 AM EDT Oxygen Saturation 100% 12/29/2014 3:36 AM EDT Inhaled Oxygen Concentration - - Weight 65.8 kg (145 lb) 12/29/2014 3:36 AM EDT Height 165.1 cm (5' 5 ) 12/29/2014 3:36 AM EDT Body Mass Index 24.13 12/29/2014 3:36 AM EDT documented in this encounter Discharge Instructions * Attachments The following attachments cannot be sent through Care Everywhere. * VAGINAL BLEEDING DURING , FIRST TRIMESTER ([place]) documented in this encounter Medications at Time of Discharge malathion (OVIDE) 0.5 % Top LotionIndication s:Head lice Apply topically See Admin Instructions. See admin instructions. 1 Bottle 1 04/29/2014 6 documented as of this encounter Discharge Disposition Disposition Code Departure Means Destination Home or Self Longterm documented in this encounter ED Notes * Luc Ivory MD - 12/29/2014 3:45 AM EDT Chief Complaint Patient presents with ??? Vaginal Bleeding 8 weeks . [place] around 0230 noted bright red blood afterwards, says now she is spotting and color is pink. ABD cramping that is not new she has had it for a couple weeks HPI Comments: Patient is a 24-year-old female presents to the emergency department with the complaint of vaginal bleeding. Patient reports she is roughly 8 weeks . After intercourse roughly 2:30 this morning she noticed that she was having bleeding. She reports initially bright red bleeding. She noticed it coming out of her vagina. She reports one time she left the house to come to the hospital she was only spotting. This is her third . She is labor with her first . She had a miscarriage with her second roughly 10 weeks. She does report some suprapubic cramping. She reports a cramping she's been having for the past couple weeks and dissection seenin the emergency department 3 weeks ago with the same. That time she did have a quantitative hCG ofroughly 1200. She has taken nothing for the cramping prior to coming to the emergency department. The history is provided by the patient. Allergies Allergen Reactions ??? Sulfa (Sulfonamide Antibiotics) Swelling and Rash throat closes up, rash, and red everywhere Home Medications: Prior to Admission medications Medication Sig Start Date End Date Taking? Authorizing Provider malathion (OVIDE) 0.5 % Top Lotion Apply topically See Admin Instructions. See admin instructions. 04/29/14 Nehemias Barron MD Past Medical History: Past Medical History Diagnosis Date ??? Knee injury chip in left knee but has problems with both knee's ??? 06/2011 ??? 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 RA (rheumatoid arthritis) ([facility]) ??? Melanoma in situ of back (HCC) [...] Motion sickness ??? Cancer (HCC) melanoma back Social History: reports that she has been smoking Cigarettes. She has a 8 pack- year smoking history. She has never used smokeless [...] PROCEDURE (LEEP); Surgeon: Sachin Castellanos MD; Location: [facility] MAIN OR; Service: Gynecology ??? Dilation and curettage of uterus N/A 02/20/2014 DILATION & CURETTAGE SUCTION EVACUATION FOR MISSCARRIAGE ; Surgeon: Kash Tabares MD; Location: [facility] MAIN OR; Service: Gynecology Review of Systems All other systems reviewed and are negative. Blood pressure 114/63, pulse 92, temperature 98.1 ??F (36.7 ??C), temperature source Oral, resp. rate 18, height 5' 5 (1.651 m), weight 145 lb (65.772 kg), last menstrual period 10/24/2014, SpO2 100%, unknown if currently . Physical Exam Constitutional: She appears well-developed and well-nourished. HENT: Head: Normocephalic and atraumatic. Mouth/Throat: Oropharynx is clear and moist. Eyes: EOM are normal. Pupils are equal, round, and reactive to light. Neck: Normal range of motion. Neck supple. Cardiovascular: Normal rate, regular rhythm and normal heart sounds. Exam reveals no gallop. No murmur heard. Pulmonary/Chest: Effort normal and breath sounds normal. Abdominal: Soft. Bowel sounds are normal. There is no tenderness. Genitourinary: Pelvic exam: Chaperoned by a female nurse, os closed, no active bleeding, friable cervix noted. Nontender on bimanual exam. Nursing note and vitals reviewed. Procedures Radiology/EKG/Labs: Results for orders placed or performed during the hospital encounter of 12/29/14 CBC WITH AUTO DIFF Result Value Ref Range WBC 4.8 4.0 - 11.0 x10(3)/mcL RBC 3.87 3.80 - 5.10 x10(6)/mcL Hgb 12.4 12.0 - 15.6 gm/dL Hct 36.8 35.7 - 45.9 % MCV 95.3 82.5 - 99.8 fL MCH 32.0 27.0 - 34.3 pg MCHC 33.6 32.1 - 35.3 gm/dL RDW 12.8 11.5 - 15.0 % Platelet 163 144 - 423 x10(3)/mcL MPV 9.1 6.8 - 10.8 fL DIFFERENTIAL Result Value Ref Range Neut Percent 66.7 % Lymph Percent 23.7 % [place] Percent 6.5 % Eos Percent 2.1 % Baso Percent 1.0 % Neut# 3.2 1.8 - 7.7 x10(3)/mcL Lymph# 1.1 0.6 - 4.8 x10(3)/mcL [place]# 0.3 0.0 - 1.3 x10(3)/mcL Eos# 0.1 0.0 - 0.5 x10(3)/mcL Baso# 0.0 0.0 - 0.2 x10(3)/mcL ED Course: Appropriate laboratory and radiology studies reviewed 4:08 AM Bleeding from threatened miscarriage versus that from friable cervix discussed with patient. Os currently closed. We will obtain quantitative beta hCG in 2 days. Patient to follow up with her OB. ED Clinical Impression: Threatened AB Critical Care time Condition at Discharge/Transfer from Department: Stable This chart was completed using voice recognition technology and may contain unintended errors Luc Ivory MD 12/29/14 0409 documented in this encounter Plan of Treatment Not on file documented as of this encounter Procedures Procedure Name Priority Date/Time Associated Diagnosis Comments DIFFERENTIAL STAT 12/29/2014 3:43 AM EDT ABORH STAT 12/29/2014 3:43 AM EDT CBC WITH DIFF STAT 12/29/2014 3:43 AM EDT HUMAN CHORIONIC GONADOTROPIN QUANTITATIVE STAT 12/29/2014 3:43 AM EDT documented in this encounter Results * HUMAN CHORIONIC GONADOTROPIN QUANTITATIVE (12/30/2014 9:50 AM EDT) hCG Quant 113,696 mIU/mL [facility] Blood specimen (specimen) UPPER LIMB STRUCTURE / Unknown 12/30/2014 9:50 AM EDT 12/30/2014 9:52 AM EDT Narrative [facility] - 12/30/2014 11:09 AM EDT Obtain on 12/31 us Luc Ivory MD CHEMISTRY ORDERABLES Final Resul t Performing Organization Address City/[facility]/ZIP Co de Phone Number [facility] [address] [place] [address] * DIFFERENTIAL (12/29/2014 3:43 AM EDT) Neut Percent 66.7 % [facility] Lymph Percent 23.7 % [facility] [place] Percent 6.5 % [facility] Eos Percent 2.1 % [facility] Baso Percent 1.0 % [facility] Neut# 3.2 1.8 - 7.7 x10(3)/mcL [facility] Lymph# 1.1 0.6 - 4.8 x10(3)/mcL [facility] [place]# 0.3 0.0 - 1.3 x10(3)/mcL [facility] Eos# 0.1 0.0 - 0.5 x10(3)/mcL [facility] Baso# 0.0 0.0 - 0.2 x10(3)/[facility] Blood specimen (specimen) 12/29/2014 3:43 AM EDT 12/29/2014 3:48 AM EDT us Luc Ivory MD HEMATOLOGY ORDERABLES Final Resu lt Performing Organization Address [facility] Co de Phone Number [facility] [address] [place] [address] * CBC WITH AUTO DIFF (12/29/2014 3:43 AM EDT) WBC 4.8 4.0 - 11.0 x10(3)/mcL [facility] RBC 3.87 3.80 - 5.10 x10(6)/mcL [facility] Hgb 12.4 12.0 - 15.6 gm/dL [facility] Hct 36.8 35.7 - 45.9 % [facility] MCV 95.3 82.5 - 99.[address] [facility] MCH 32.0 27.0 - 34.[address] [facility] MCHC 33.6 32.1 - 35.3 gm/dL [facility] RDW 12.8 11.5 - 15.0 % [facility] Platelet 163 144 - 423 x10(3)/mcL [facility] MPV 9.1 6.8 - 10.[address] [facility] Blood specimen (specimen) UPPER LIMB STRUCTURE / Unknown 12/29/2014 3:43 AM EDT 12/29/2014 3:48 AM EDT Luc Ivory MD HEMATOLOGY ORDERABLES Final Resu lt Performing Organization Address City/[facility] Co de Phone Number [facility] [address] [place] [address] * ABORH (12/29/2014 3:43 AM EDT) ABORh Int AB POS [facility] Blood specimen (specimen) UPPER LIMB STRUCTURE / Unknown 12/29/2014 3:43 AM EDT 12/29/2014 11:42 AM EDT us Luc Ivory MD BLOOD BANK ORDERABLES Final Resu lt Performing Organization Address [facility] Co de Phone Number [facility] [address] [place] [address] * HUMAN CHORIONIC GONADOTROPIN QUANTITATIVE (12/29/2014 3:43 AM EDT) hCG Quant 80836 mIU/mL [facility] Blood specimen (specimen) UPPER LIMB STRUCTURE / Unknown 12/29/2014 3:43 AM EDT 12/29/2014 3:48 AM EDT us Luc Ivory MD CHEMISTRY ORDERABLES Final Resul t Performing Organization Address [facility] de Phone Number [facility] [address] [place] [address] documented in this encounter Visit Diagnoses Diagnosis Threatened - Primary Threatened , unspecified as to episode of care Threatened Threatened , unspecified as to episode of care Missed Lymphadenopathy, posterior cervical Ecchymosis Other specified circulatory system disorders Syncope, vasovagal Syncope and collapse documented in this encounter Care Teams Railway Equipment Operator Relationship Specialty Start Date End Date Nehemias Barron MD [address] [place] [id number] PCP - General 12/01/10 Easton Thompson MD [address] [place] [address] Physician Obstetrics & Gynecology 01/29/14 documented as of this encounter
--- OUTSIDE RECORDS SUMMARY | 2024-03-07 05:09 | XMS_ITS | Encounter Summary ---
Author Organization [place] [address] Care Team Providers Care Sleeve Setter Name Role Phone Nehemias Barron MD Primary Care Provider [phone] Easton Thompson MD Unavailable [phone] Reason for Visit * Reason Onset Date Comments Procedure 02/19/2014 SURGERY INFO Encounter Details Date Type Department Care Team (Late st Contact Info) Description 02/19/2014 Telephone [facility] [address] [place] [address] Moon Dutton, A [address] [phone] Procedure (SURGERY INFO) Social History Tobacco Use Types Packs/Day Years [...] Notes * Telephone Encounter - Moon Dutton MA - 02/19/2014 2:02 PM EST Pt aware. * Telephone Encounter - Moon Dutton MA - 02/19/2014 1:43 PM EST Called patient to inform them of their upcoming surgery and related information. Patient is scheduled for SURGERY on 02/20/14 at 1:30 PM at the [facility]. Patient will need to arrive two hours prior to their scheduled procedure time. Patient was advised nothing to eat or drink from midnightthe night prior to their procedure. If they smoke, they are advised not to smoke the day of the procedure. * Telephone Encounter - Moon Dutton MA - 02/19/2014 11:49 AM EST Message copied by MOON DUTTON on TueFeb 19, 2014 11:49 AM ------ Message from: EMMA NGUYEN Created: TueFeb 19, 2014 11:06 AM Spoke to patient late yesterday afternoon about results / miscarriage management options. Patient was leaning toward D&C but wasn't ready to schedule yet. Condolences were given, and I let her know I would contact her again this morning. No answer on either phone, message left on mobile number,instructed her to call whenever she was ready today / these next couple days to look into scheduling. Jennifer please call me on my cell phone today if she wants to schedule with me can do [place] tomorrow late am or early afternoon or potentially Th @ [facility] [place]. ------ documented in this encounter Plan of Treatment Not on file documented as of this encounter Visit Diagnoses Not on filedocumented in this encounter Care Teams Sleeve Setter Relationship Specialty Start Date End Date Nehemias Barron MD [address] [place] [address] PCP - General 12/01/10 Easton Thompson MD [address] [place] [address] [address] [place] [address] Physician Obstetrics & Gynecology 01/29/14 documented as of this encounter
--- OUTSIDE RECORDS SUMMARY | 2024-03-07 05:09 | XMS_ITS | Encounter Summary ---
Author Organization [place] [address] Care Team Providers Care Veterinary Toxicologist Name Role Phone Nehemias Barron MD Primary Care Provider [phone] Encounter Details Date Type Department Care Team (Latest Contact Info) Description 01/22/2014 3:35 PM EDT - 01/22/2014 11:59 PM EDT Hospital Encounter [facility] [address] [place] [address] Abnormal bruising (Primary Dx); Syncope, vasovagal; Severe dysplasia of cervix (MATT III); RA (rheumatoid arthritis) (HCC) Discharge Disposition: Home or Self Care [...] Schedule OP VENIPUNCTURE CHARGE Lab Timed Abnormal bruising Syncope, vasovagal Severe dysplasia of cervix (MATT III) RA (rheumatoid arthritis) (HCC) One Time for 1 Occurrences starting 01/22/2014 until 01/22/2014 documented as of this encounter Procedures Procedure Name Priority Date/Time Associated Diagnosis Comments CBC Routine 01/22/2014 3:54 PM EDT Abnormal bruising PFA-100 PLATELET FUNCTION ANALYSIS Routine 01/22/2014 3:54 PM EDT Abnormal bruising PARTIAL THROMBOPLASTIN TIME Routine 01/22/2014 3:54 PM EDT Abnormal bruising PT / INR Routine 01/22/2014 3:54 PM EDT Abnormal bruising documented in this encounter Results * (ABNORMAL) PT / INR (01/22/2014 3:54 PM EDT) PT 12.4(H) 9.9 - 12.3 second(s) [facility] INR 1.16(H) 0.90 - 1.11 [facility] Comment: Level of Therapy ??Indications ??Target INR Range Standard Dose Treatment and prophylaxis of venous 2.0 - 3.0 ??thrombosis, pulmonary embolism ?High Dose High risk patients with mechanical ?2.5 - 3.5 ??heart valves Blood specimen (specimen) UPPER LIMB STRUCTURE / Unknown 01/22/2014 3:54 PM EDT 01/22/2014 3:54 PM EDT us Nehemias Barron MD HEMATOLOGY ORDERABLES Final R esult [facility] [address] [place] [address] * PFA-100 PLATELET FUNCTION ANALYSIS (01/22/2014 3:54 PM EDT) PFA ADP 82 59 - 104 second(s) [facility] PFA EPI 112 70 - 150 second(s) [facility] PFA Interp Platelet function is normal. ??If history/physi bell exam indicate bleeding disorder, and repeat test is normal, consider testing for factor deficiencies. ??With very recent history of bleeding, factors (vWF) may rise to normal levels. ??Normal platelet function in patients taking aspirin may identify ASA non-responder s (8-45% of the population), an increased risk for in Acute Coronary Syndrome. [facility] PFA Interp Normal PFA [facility] Hematocrit PFA 35.8 35.0 - 45.0 % [facility] Platelet PFT 181 150 - 400 x10(3)/mc L [facility] Blood specimen (specimen) 01/22/2014 3:54 PM EDT 01/22/2014 6:17 PM EDT Nehemias Barron MD HEMATOLOGY ORDERABLES Final R esult Performing Organization Address [facility] de Phone Number [facility] [address] [place] [address] * PARTIAL THROMBOPLASTIN TIME (01/22/2014 3:54 PM EDT) PTT 27.8 22.3 - 33.1 second(s) [facility] Comment: Therapeutic range for direct thrombin [...] ORDERABLES Final R esult Performing Organization Address [facility] Co de Phone Number [facility] [address] [place] [address] * (ABNORMAL) CBC (01/22/2014 3:54 PM EDT) WBC 4.6 4.0 - 11.0 x10(3)/mcL [facility] RBC 3.78(L) 3.80 - 5.10 x10(6)/mcL [facility] Hgb 12.1 12.0 - 15.6 gm/dL [facility] Hct 34.9(L) 35.7 - 45.9 % [facility] MCV 92.5 82.5 - 99.8 fL [facility] MCH 32.0 27.0 - 34.3 pg [facility] MCHC 34.6 32.1 - 35.3 gm/dL [facility] RDW 11.9 11.5 - 15.0 % [facility] Platelet 178 144 - 423 x10(3)/mcL [facility] MPV 8.8 6.8 - 10.8 fL [facility] Blood specimen (specimen) UPPER LIMB STRUCTURE / Unknown 01/22/2014 3:54 PM EDT 01/22/2014 3:54 PM EDT us Nehemias Barron MD HEMATOLOGY ORDERABLES Final R esult [facility] [address] [place] [address] documented in this encounter Visit Diagnoses Diagnosis Abnormal bruising- Primary Other symptoms involving skin and integumentary tissues Syncope, vasovagal Syncope and collapse 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
--- OUTSIDE RECORDS SUMMARY | 2024-03-07 05:09 | XMS_ITS | Encounter Summary ---
Author Organization [place] [address] Care Team Providers Care Pond Supervisor Name Role Phone Nehemias Barron MD Primary Care Provider [phone] Easton Thompson MD Unavailable [phone] Encounter Details Date Type Department Care Team (Latest Contact Info) Description 02/18/2014 3:45 PM EST - 02/18/2014 11:59 PM EST Hospital Encounter [facility] [place] [phone] heart tones not heard Discharge Disposition: Home or Self Care Social [...] * Miscellaneous - Unknown, Unknown - 02/19/2014 7:58 AM EST documented in this encounter Plan of Treatment Not on file documented as of this encounter Procedures Procedure Name Priority Date/Time Associated Diagnosis Comments PN US OB TRANSVAGINAL Routine 02/18/2014 4:22 PM EST heart tones not heard documented in this encounter Results * PN US OB TRANSVAGINAL (02/18/2014 4:22 PM EST) Anatomical Region Laterality Modality Pelvis Ultrasound 02/18/2014 us Kash Tabares MD IMG ORDERABLES Final Result documented in this encounter Visit Diagnoses Diagnosis heart tones not heard Abnormality in heart rate/rhythm, unspecified as to episode of care or not applicable documented in this encounter Care Teams Pond Supervisor Relationship Specialty Start Date End Date Nehemias Barron MD [address] [place] [address] PCP - General 12/01/10 Easton Thompson MD [address] [place] [address] [address] [place] [address] Physician Obstetrics & Gynecology 01/29/14 documented as of this encounter
--- OUTSIDE RECORDS SUMMARY | 2024-03-07 05:09 | XMS_ITS | Encounter Summary ---
Author [place] [address] Care Team Providers Care Inside Sales Specialist Name Role Phone Nehemias Barron MD Primary Care Provider [phone] Easton Thompson MD Unavailable [phone] Encounter Details Date Type Department Care Team (Latest Contact Info) Description 01/29/2014 3:45 PM EDT - 01/29/2014 8:32 PM EDT Hospital Encounter [facility] [address] [place] [address] Amenorrhea (Primary Dx); Syncope, vasovagal; Severe dysplasia of [...] r Schedule OP VENIPUNCTURE CHARGE Lab Timed Amenorrhea Syncope, vasovagal Severe dysplasia of cervix (MATT III) RA (rheumatoid arthritis) (HCC) One Time for 1 Occurrences starting 01/29/2014 until 01/29/2014 documented as of this encounter Procedures Procedure Name Priority Date/Time Associated Diagnosis Comments HIV AG/AB Routine 01/29/2014 3:44 PM EDT Amenorrhea SYPHILIS SCREEN WITH REFLEX RPR QUANT Routine 01/29/2014 3:44 PM EDT Amenorrhea SMEAR REVIEW Routine 01/29/2014 3:44 PM EDT DIFFERENTIAL Routine 01/29/2014 3:44 PM EDT ABORH Routine 01/29/2014 3:44 PM EDT Amenorrhea RUBELLA ANTIBODY IGG Routine 01/29/2014 3:44 PM EDT Amenorrhea HEPATITIS B SURFACE ANTIGEN Routine 01/29/2014 3:44 PM EDT Amenorrhea CBC WITH DIFF Routine 01/29/2014 3:44 PM EDT Amenorrhea ANTIBODY SCREEN IGG Routine 01/29/2014 3 :44 PM EDT Amenorrhea URINE CULTURE (NO STAIN) Routine 01/29/2014 3:44 PM EDT Amenorrhea documented in this encounter Results * SMEAR REVIEW (01/29/2014 3:44 PM EDT) Bands 5 0 - 10 % [facility] Atyp Lymph 3 0 - 5 % [facility] RBC Morph Normal [facility] Blood specimen (specimen) 01/29/2014 3:44 PM EDT 01/29/2014 3:44 PM EDT us Cathie Pena DO HEMATOLOGY ORDERAB LES Final Result [facility] [address] [place] [address] * DIFFERENTIAL (01/29/2014 3:44 PM EDT) Neut Percent 56.0 % [facility] Lymph Percent 28.9 % [facility] [place] Percent 8.0 % [facility] Eos Percent 6.1 % [facility] Baso Percent 1.0 % [facility] Neut# 2.1 1.8 - 7.7 x10(3)/mcL [facility] Lymph# 1.1 0.6 - 4.8 x10(3)/mcL [facility] [place]# 0.3 0.0 - 1.3 x10(3)/mcL [facility] Eos# 0.2 0.0 - 0.5 x10(3)/mcL [facility] Baso# 0.0 0.0 - 0.2 x10(3)/[facility] Blood specimen (specimen) 01/29/2014 3:44 PM EDT 01/29/2014 3:44 PM EDT us Cathie Pena DO HEMATOLOGY ORDERAB LES Final Result Performing Organization Address [facility]/ZIP Co de Phone Number [facility] [address] [place] [address] * URINE CULTURE (01/29/2014 3:44 PM EDT) [facility] Final No growth at 2 days. [facility] Urine specimen (specimen) URINE SPECIMEN COLLECTION, CLEAN CATCH / Unknown 01/29/2014 3:44 PM EDT 01/29/2014 7:53 PM EDT us Cathie Pena DO MICROBIOLOGY - GEN ERAL ORDERABLES Final Result Performing Organization Address [facility]/ZIP Co de Phone Number [facility] [address] [place] [address] * SYPHILIS SCREEN WITH REFLEX RPR QUANT (01/29/2014 3:44 PM EDT) [facility] TREP(SYPHILIS) AB INDEX <0.10 <=1.09 Index Value [facility] Comment: <0.90 - Negative 0.90 to 1.00 - Equivocal ?? Patients with equivocal results should be retested in 7-14 days. >=1.10 - Positive NOTE: ??All equivocal and positive results will be reflexed to Quantitative Non-Treponemal(RPR)test. Blood specimen (specimen) 01/29/2014 3:44 PM EDT 01/29/2014 7:41 PM EDT us Cathie Pena DO CHEMISTRY ORDERABL ES Final Result Performing Organization Address [facility] Co de Phone Number [facility] [address] [place] [address] * RUBELLA ANTIBODY IGG (01/29/2014 3:44 PM EDT) Rubella IgG 6.960 Index Value [facility] Comment: < 0.90 - Negative No [...] ORDERAB LES Final Result Performing Organization Address [facility] Co de Phone Number [facility] [address] [place] [address] * HIV AG/AB (01/29/2014 3:44 PM EDT) HIV Ag/AB Non-Reactiv e [facility] Blood specimen (specimen) 01/29/2014 3:44 PM EDT 01/29/2014 7:41 PM EDT us Cathie Pena DO IMMUNOLOGY ORDERAB LES Final Result Performing Organization Address [facility] Co de Phone Number [facility] [address] [place] [address] * HEPATITIS B SURFACE ANTIGEN (01/29/2014 3:44 PM EDT) Pathologist [facility] Hep Bs Ag Negative Negative [facility] Blood specimen (specimen) UPPER LIMB STRUCTURE / Unknown 01/29/2014 3:44 PM EDT 01/29/2014 7:41 PM EDT Cathie Pena DO CHEMISTRY ORDERABL ES Final Result Performing Organization Address City/[facility]/ZIP Co de Phone Number [facility] [address] [place] [address] * (ABNORMAL) CBC WITH AUTO DIFF (01/29/2014 3:44 PM EDT) [facility] WBC 3.8(L) 4.0 - 11.0 x10(3)/mcL [facility] RBC 3.86 3.80 - 5.10 x10(6)/mcL [facility] Hgb 12.2 12.0 - 15.6 gm/dL [facility] Hct 36.0 35.7 - 45.9 % [facility] MCV 93.2 82.5 - 99.8 fL [facility] MCH 31.7 27.0 - 34.3 pg [facility] MCHC 34.0 32.1 - 35.3 gm/dL [facility] RDW 11.9 11.5 - 15.0 % [facility] Platelet 168 144 - 423 x10(3)/mcL [facility] MPV 8.9 6.8 - 10.8 fL [facility] Blood specimen (specimen) UPPER LIMB STRUCTURE / Unknown 01/29/2014 3:44 PM EDT 01/29/2014 3:44 PM EDT Cathie Pena DO HEMATOLOGY ORDERAB LES Final Result Performing Organization Address City/[facility]/ZIP Co de Phone Number [facility] [address] [place] [address] * ANTIBODY SCREEN IGG (01/29/2014 3:44 PM EDT) Pathologist [facility] ABSC IgG Int Negative [facility] Blood specimen (specimen) UPPER LIMB STRUCTURE / Unknown 01/29/2014 3:44 PM EDT 01/29/2014 7:41 PM EDT us Cathie Pena DO BLOOD BANK ORDERAB LES Final Result Performing Organization Address City/[facility]/ZIP Co de Phone Number [facility] [address] [place] [address] * ABORH (01/29/2014 3:44 PM EDT) ABOR Int AB POS [facility] Blood specimen (specimen) UPPER LIMB STRUCTURE / Unknown 01/29/2014 3:44 PM EDT 01/29/2014 7:41 PM EDT us Cathie Pena DO BLOOD BANK ORDERAB LES Final Result Performing Organization Address City/[facility] Co de Phone Number [facility] [address] [place] [address] documented in this encounter Visit Diagnoses Diagnosis Amenorrhea- Primary Absence of menstruation Syncope, vasovagal Syncope and collapse 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
--- OUTSIDE RECORDS SUMMARY | 2024-03-07 05:10 | XMS_ITS | Encounter Summary ---
Author Organization [place] [address] Care Team Providers Care Project Officer Name Role Phone Nehemias Barron MD Primary Care Provider [phone] Encounter Details Date Type Department Care Team (Latest Contact Info) Description 09/22/2011 8:27 PM EDT - 09/22/2011 11:59 PM EDT Hospital Encounter [facility] LAB IVORY PROCESSING [facility] [place] [id number] Syncope, vasovagal; Pallor Discharge Disposition: Home or Self Care Social History Tobacco Use Types Packs/Day Years Used Date Smoking Tobacco: Every Day Cigarettes Smokeless Tobacco: Never Alcohol Use Standard Drinks/Week [...] documented in this encounter Progress Notes * Unknown, Unknown - 09/22/2011 9:06 PM EDT documented in this encounter Plan of Treatment Not on file documented as of this encounter Procedures Procedure Name Priority Date/Time Associated Diagnosis Comments SMEAR REVIEW Routine 09/22/2011 2:27 PM EDT DIFFERENTIAL Routine 09/22/2011 2:27 PM EDT CBC WITH DIFF Routine 09/22/2011 2:27 PM EDT Syncope, vasovagal Pallor documented in this encounter Results * SMEAR REVIEW (09/22/2011 2:27 PM EDT) Bands 9 0 - 10 % [facility] RBC Morph Normal [facility] Blood specimen (specimen) 09/22/2011 2:27 PM EDT 09/22/2011 8:31 PM EDT Nehemias Barron MD HEMATOLOGY ORDERABLES Final R esult Performing Organization Address City/[facility]/ZIP Co de Phone Number [facility] [address] [place] [address] * (ABNORMAL) AUTO DIFF (09/22/2011 2:27 PM EDT) Neut Percent 55.4 40.0 - 70.0 % [facility] Lymph Percent 37.7 17.0 - 46.0 % [facility] [place] Percent 5.8 4.0 - 12.0 % [facility] Eos Percent 0.6 0.0 - 6.0 % [facility] Baso Percent 0.5 0.0 - 2.0 % [facility] Neut# 1.3(L) 1.8 - 7.7 x10(3)/mcL [facility] Lymph# 0.9(L) 1.0 - 4.8 x10(3)/mcL [facility] [place]# 0.1 0.0 - 1.3 x10(3)/mcL [facility] Eos# 0.0(L) 0.1 - 0.5 x10(3)/mcL [facility] Baso# 0.0 0.0 - 0.2 x10(3)/mcL [facility] Blood specimen (specimen) 09/22/2011 2:27 PM EDT 09/22/2011 8:31 PM EDT Nehemias Barron MD HEMATOLOGY ORDERABLES Final R esult Performing Organization Address City/[facility]/ZIP Co de Phone Number [facility] [address] [place] [address] * (ABNORMAL) CBC WITH AUTO DIFF (09/22/2011 2:27 PM EDT) WBC 2.4(L) 4.0 - 11.0 x10(3)/mcL [facility] RBC 4.14 4.00 - 5.10 x10(6)/mcL [facility] Hgb 13.2 12.0 - 15.7 gm/dL [facility] Hct 38.1 36.0 - 45.9 % [facility] MCV 92.0 80.0 - 95.8 fL [facility] MCH 32.0 27.0 - 33.2 pg [facility] MCHC 34.7 33.0 - 36.0 gm/dL [facility] RDW 11.7 11.5 - 14.5 % [facility] Platelet 175 150 - 400 x10(3)/mcL [facility] MPV 9.9 7.0 - 12.0 fL [facility] Blood specimen (specimen) UPPER LIMB STRUCTURE / Unknown 09/22/2011 2:27 PM EDT 09/22/2011 8:31 PM EDT us Nehemias Barron MD HEMATOLOGY ORDERABLES Final R esult [facility] [address] [place] [address] documented in this encounter Visit Diagnoses Diagnosis Syncope, vasovagal Syncope and collapse Pallor documented in this encounter Care Teams Project Officer Relationship Specialty Start Date End Date Nehemias Barron MD [address] [place] [address] PCP - General 12/01/10 documented as of this encounter
--- OUTSIDE RECORDS SUMMARY | 2024-03-07 05:10 | XMS_ITS | Encounter Summary ---
Author Organization [place] [address] Care Team Providers Care Boat Ride Operator Name Role Phone Nehemias Barron MD Primary Care Provider [phone] Encounter Details Date Type Department Care Team (Late st Contact Info) Description 05/31/2013 Orders Only [facility] [address] [place] [address] Tabatha Gunter, [facility] [address] [place] [address] Amenorrhea (Primary Dx) Social History Tobacco Use [...] as of this encounter Plan of Treatment Not on file documented as of this encounter Results * BETA HUMAN CHORIONIC GONADOTROPIN QUANTITATIVE (05/31/2013 3:05 PM EST) Pathologist [facility] hCG Quant 0 0 - 5 mIU/mL [facility] Blood specimen (specimen) UPPER LIMB STRUCTURE / Unknown 05/31/2013 3:05 PM EST 05/31/2013 3:05 PM EST Sachin Castellanos MD CHEMISTRY ORDERABLES Final Resul t [facility] [address] [place] [address] documented in this encounter Visit Diagnoses Diagnosis Amenorrhea- Primary Absence of menstruation documented in this encounter Care Teams Boat Ride Operator Relationship Specialty Start Date End Date Nehemias Barron MD [address] [place] [address] PCP - General 12/01/10 documented as of this encounter
--- OUTSIDE RECORDS SUMMARY | 2024-03-07 05:10 | XMS_ITS | Encounter Summary ---
Author Organization [place] [address] Care Team Providers Care Savings Teller Name Role Phone Nehemias Barron MD Primary Care Provider [phone] Reason for Visit * Reason Comments Abdominal Pain sent from [facility] ED for US to r/o ovarian torsion. pt has had LLQ pain since tuesday, worsening since today. Encounter Details Date Type Department Care Team (Late st Contact Info) Description 02/11/2011 11:54 PM EDT - 02/12/2011 3:02 AM EDT Emergency [facility] [place] [id number] Abdominal pain; with one fetus; UTI (urinary tract infection) Discharge Disposition: Home or Self Care Social History Tobacco Use Types Packs/Day Years Used Date Smoking Tobacco: Former Smokeless Tobacco: Never Alcohol Use Standard Drinks/Week [...] Sign Reading Time Taken Comments Blood Pressure 102/52 02/11/2011 11:57 PM EDT Pulse 83 02/11/2011 11:57 PM EDT Temperature 36.5 ??C (97.7 ??F) 02/11/2011 11:57 PM E DT Respiratory Rate 16 02/11/2011 11:57 PM EDT Oxygen Saturation 98% 02/11/2011 11:57 PM EDT Inhaled Oxygen Concentration - - Weight - - Height - - Body Mass Index - - documented in this encounter Discharge Instructions * Discharge Instructions* Raquel Covarrubias MD - 02/12/2011 2:38 AM EDT Take antibiotics as prescribed for urinary tract infection. A referral has been provided for you for OB followup. Please call to make an appointment in the morning. Seek medical attention for worsening symptoms. * Attachments The following attachments cannot be sent through Care Everywhere. * ABDOMINAL PAIN IN (TOGOLESE) * URINARY TRACT INFECTION, CARE OF, [id number] (TOGOLESE) * CEPHALEXIN-ORAL (TOGOLESE) documented in this encounter Medications at Time of Discharge cephALEXin (KEFLEX) 500 mg capsule Take 1 Cap by mouth 4 times daily for 7 days. 28 Cap 0 02/12/2011 02/19/2011 documented as of this encounter Ordered Prescriptions Prescription Sig Dispense Quantity Refills Last Filled Start Date End Date cephALEXin (KEFLEX) 500 mg capsule Take 1 Cap by mouth 4 times daily for 7 days. 28 Cap 0 02/12/2011 02/19/2011 documented in this encounter Discharge Disposition Disposition Code Departure Means Destination Home or Self Care documented in this encounter ED Notes * Raquel Covarrubias MD - 02/12/2011 2:30 AM EDT This patient was transferred to [facility] for ultrasound secondary to left sided abdominal andpelvic pain, concern for ovarian torsion. Ultrasound results as read by maternal medicine M.Sridevi.: No evidence of torsion. Baby is appropriate size, approximately 16 weeks gestation. I called the results to [facility] ED. Patient does have evidence of bacteria, esterase on UA. Will treat with oral antibiotics. Patient also does not have an OB at this time. I will give her a referral to [facility]. She is advised to call in the morning to obtain an appointment for followup.Further, seek medical attention for worsening symptoms, take vitamins. I updated patient's nurse at [facility] of results, plan. Raquel Covarrubias MD 02/12/11 0236 * Areli Foss - 02/12/2011 12:02 AM EDT Called ultrasound (maternal- center) -- She is on her way * Unknown, Unknown - 02/12/2011 12:00 AM EDT documented in this encounter Miscellaneous Notes * Miscellaneous - Unknown, Unknown - 02/15/2011 8:21 AM EST documented in this encounter Plan of Treatment Not on file documented as of this encounter Procedures Procedure Name Priority Date/Time Associated Diagnosis Comments PN US OB 14+WKS, LOW RISK ANATOMY OR NEW INDICATION SINGLE GEST RAMOS 02/12/2011 2:16 AM EDT documented in this encounter Results * PN US OB 14+ WEEKS SINGLE OR FIRST GESTATION (02/12/2011 2:16 AM EDT) Anatomical Region Laterality Modality Pelvis Ultrasound 02/12/2011 us Raquel Covarrubias MD IMG ORDERABLES Fin al Result documented in this encounter Visit Diagnoses Diagnosis Abdominal pain Abdominal pain, unspecified site with one fetus state, incidental UTI (urinary tract infection) Urinary tract infection, site not specified documented in this encounter Care Teams Savings Teller Relationship Specialty Start Date End Date Nehemias Barron MD [address] [place] [address] PCP - General 12/01/10 documented as of this encounter
--- OUTSIDE RECORDS SUMMARY | 2024-03-07 05:10 | XMS_ITS | Encounter Summary ---
Author Organization [place] [address] Care Team Providers Care Metal Ceiling Hanger Name Role Phone Nehemias Barron MD Primary Care Provider [phone] Encounter Details Date Type Department Care Team (Latest Contact Info) Description 05/29/2013 9:30 PM EST - 05/29/2013 11:59 PM EST Hospital Encounter EDG LAB IVORY PROCESSING [place] [address] Severe dysplasia of cervix (MATT III) Discharge Disposition: Home or Self Care Social [...] Notes * Miscellaneous - Unknown, Unknown - 05/29/2013 9:47 PM EST documented in this encounter Plan of Treatment Not on file documented as of this encounter Procedures Procedure Name Priority Date/Time Associated Diagnosis Comments PATHOLOGY TISSUE REPORT Routine 05/29/2013 9:30 PM EST documented in this encounter Results * PATHOLOGY TISSUE REPORT (05/29/2013 9:30 PM EST) Pathologist [facility] Surgical Pathology Report ? PATIENT NAME:BONNY OLIVARES ?Surgical Pathology Report ? Accession Number ?Collected Date/Time ? Received Date/Time ? [id number] ? 05/29/13 21:30 EST ?05/29/13 22:00 EST ? Diagnosis ? 1) Cervix, 10 o'clock, biopsy: ? - High-grade squamous dysplasia (MATT 3) in transformation zone mucosa. ? 2) Endocervix, curettings: ? - Benign endo and ectocervical epithelium, scant. ? JENNI OSTERHAGE ? (Electronically signed by) ? Verified: 05/31/2013 ? [facility] ? Comment ? A small cluster of chorionic villi is present in the ECC; it may represent ? a contaminant. ??A test is recommended if clinically indicated. ? The biopsy findings correlate with the patient's previous Pap smear, [id number], interpreted as HGSIL. ? Clinical Information ? MATT 3 ? Gross Description ? Part 1) Received in formalin labeled with the patient? s name and is a ? single 4 mm murry fragment, entirely submitted in 1 cassette. ? Part 2) Received in formalin labeled ? ? ECC? ? is ??0.1 mL of mucus admixed ? with minute ? fragments of soft tissue, entirely submitted in 1 cassette. /BC ? DJE/CN ? Microscopic Description ? Microscopic examination is performed and the findings corroborate the ? diagnosis. 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
--- OUTSIDE RECORDS SUMMARY | 2024-03-07 05:10 | XMS_ITS | Encounter Summary ---
Author Organization [place] [address] Care Team Providers Care Warehouse Supervisor 3Rd Shift Name Role Phone Nehemias Barron MD Primary Care Provider [phone] Encounter Details Date Type Department Care Team (Latest Contact Info) Description 02/19/2013 7:44 AM EST - 02/19/2013 8:01 PM EST Hospital Encounter EDG LAB IVORY PROCESSING [place] [address] Pap smear, as part of routine gynecological examination Discharge Disposition: Home or Self Care Social [...] Notes * Miscellaneous - Unknown, Unknown - 02/20/2013 7:43 AM EST documented in this encounter Plan of Treatment Not on file documented as of this encounter Procedures Procedure Name Priority Date/Time Associated Diagnosis Comments COMMERCIAL JOURNEYMAN ELECTRICIAN CYTOLOGY REPORT Routine 02/18/2013 1 2:00 AM EST documented in this encounter Results * COMMERCIAL JOURNEYMAN ELECTRICIAN CYTOLOGY REPORT (02/18/2013 12:00 AM EST) Pathologist [facility] Stock Buyer Cytology Report ? PATIENT NAME:BONNY OLIVARES ? Stock Buyer Cytology Report ? Accession Number ?Collected Date/Time ? Received Date/Time ? [id number] ? 02/18/13 00:00 EST ?02/20/13 10:06 EST ? GY Specimen Source ? Specimen Vag/Cerv/Endocx?: Vag/Cerv/Endocerv ? Statement of Adequacy ? Satisfactory for Evaluation. ??Transformation Zone Present. ? Diagnosis ? EPITHELIAL CELL ABNORMALITIES High Grade Squamous Intraepithelial Lesion ? (Encompassing MATT 2 and MATT 3). ? Comment ? The Pap Smear is a screening test that aids in the detection of cervical ? cancer and cancer precursors. ??Both false positive and false negative ? results can occur. ??The test should be used at regular intervals, and ? positive results should be confirmed before definitive ? therapy. ? Processed using the Yorder automated cytology screening device ? (LK FREEMAN). ? Supervisor [employer] Reservations: TS, QL ?02/24/2013 ? Completed by: ??ROJELIO RICHARD ?(Electronically signed by) ?02/26/2013 ?[facility] 02/18/2013 us Bella Richmond MD PATHOLOGY ORDERABLES Final Result [facility] [address] [place] [address] documented in this encounter Visit Diagnoses Diagnosis Pap smear, as part of routine gynecological examination Screening for malignant neoplasm of the cervix documented in this encounter Care Teams Warehouse Supervisor 3Rd Shift Relationship Specialty Start Date End Date Nehemias Barron MD [address] [place] [address] PCP - General 12/01/10 documented as of this encounter
--- OUTSIDE RECORDS SUMMARY | 2024-03-07 05:10 | XMS_ITS | Encounter Summary ---
Author Organization [place] [address] Care Team Providers Care Riverboat Captain Name Role Phone Nehemias Barron MD Primary Care Provider [phone] Reason for Visit * Reason Comments Rash Encounter Details Date Type Department Care Team (Late st Contact Info) Description 07/07/2012 1:30 PM EDT Office Visit [facility] [address] [facility] [place] [address] Nehemias Barron MD [address] [place] [address] Rash (Primary Dx) Social History Tobacco Use Types Packs/Day Years Used Date Smoking Tobacco: Every Day Cigarettes Smokeless Tobacco: Never Tobacco Cessation:Counseling Given: Yes Alcohol Use Standard Drinks/Week Comments No 0 [...] Sign Reading Time Taken Comments Blood Pressure 120/60 07/07/2012 1:45 PM EDT Pulse 88 07/07/2012 1:45 PM EDT Temperature 37.1 ??C (98.8 ??F) 07/07/2012 1:45 PM ED T Respiratory Rate - - Oxygen Saturation - - Inhaled Oxygen Concentration - - Weight 59 kg (130 lb) 07/07/2012 1:45 PM EDT Height 165.1 cm (5' 5 ) 07/07/2012 1:45 PM EDT Body Mass Index 21.63 07/07/2012 1:45 PM EDT documented in this encounter Ordered Prescriptions Prescription Sig Dispense Quantity Refills Last Filled Start Date End Date predniSONE (DELTASONE) 20 mg tabletIndications :Rash Take 1 Tab by mouth 2 times daily for 7 days. 14 Tab 0 07/07/2012 3 permethrin (ELIMITE) 5 % creamIndications: Rash Apply topically See Admin Instructions for 30 days. Apply repeat in 1 week if needed. 15 g 0 07/07/2012 3 documented in this encounter Progress Notes * Nehemias Barron MD - 07/07/2012 2:01 PM EDT Subjective: Patient ID: Bonny Olivares is a 21 y.o. female. HPI Now with vessicular rash on arms, chest. Began as small eczema plaque, using TCN cream, intially better but now worse Patients past medical, family and social histories were reviewed and updated. There were no changesexcept as noted. Review of Systems Constitutional: Negative for fatigue and unexpected weight change. Eyes: Negative for visual disturbance. Respiratory: Negative for cough and shortness of breath. Cardiovascular: Negative for chest pain, palpitations and leg swelling. Neurological: Negative for headaches. Objective: Filed Vitals: 07/07/12 1345 BP: 120/60 Pulse: 88 Temp: 98.8 ??F (37.1 ??C) TempSrc: Forehead Height: 5' 5 (1.651 m) Weight: 130 lb (58.968 kg) Body mass index is 21.63 kg/(m^2). Physical Exam Constitutional: She is oriented [...] and Plan: Bonny was seen today for rash. Diagnoses and associated orders for this visit: Rash - permethrin (ELIMITE) 5 % cream; Apply topically See Admin Instructions for 30 days. Apply repeat in 1 week if needed. - predniSONE (DELTASONE) 20 mg tablet; Take 1 Tab by mouth 2 times daily for 7 days. documented in this encounter Plan of Treatment Not on file documented as of this encounter Visit Diagnoses Diagnosis Rash- Primary Rash and other nonspecific skin eruption documented in this encounter Discontinued Medications Medication Sig Discontinue Reason Start Date End Da te triamcinolone (KENALOG) 0.1 % creamIndications:Atopic dermatitis Apply topically 2 times daily for 90 days. Patient refused 06/08/2012 07/07/2012 documented as of this encounter Care Teams Riverboat Captain Relationship Specialty Start Date End Date Nehemias Barron MD [address] [place] [id number] PCP - General 12/01/10 documented as of this encounter
--- OUTSIDE RECORDS SUMMARY | 2024-03-07 05:10 | XMS_ITS | Encounter Summary ---
Author Organization [place] [address] Care Team Providers Care Caramel Cutter Machine Name Role Phone Nehemias Barron MD Primary Care Provider [phone] Reason for Visit * Reason Comments Leg Pain Pt reports that she has had pain in both of her legs from the thighs down since last night. cpta ibuprofen 600mg at 8:00am Encounter Details Date Type Department Care Team (Late st Contact Info) Description 08/18/2012 9:57 AM EDT - 08/18/2012 11:31 AM EDT [facility] [address] [place] [address] Edu Cross MD Leg cramps (Primary Dx); Leg pain Discharge Disposition: Home or Self Care [...] Sign Reading Time Taken Comments Blood Pressure 122/68 08/18/2012 10:04 AM EDT Pulse 87 08/18/2012 10:04 AM EDT Temperature 36.4 ??C (97.6 ??F) 08/18/2012 10:04 AM E DT Respiratory Rate 16 08/18/2012 10:04 AM EDT Oxygen Saturation 100% 08/18/2012 10:04 AM EDT Inhaled Oxygen Concentration - - Weight 61.7 kg (136 lb) 08/18/2012 10:04 AM EDT Height 165.1 cm (5' 5 ) 08/18/2012 10:04 AM EDT Body Mass Index 22.63 08/18/2012 10:04 AM EDT documented in this encounter Discharge Instructions * Attachments The following attachments cannot be sent through Care Everywhere. * LEG CRAMPS (ARMENIAN) documented in this encounter Discharge Disposition Disposition Code Departure Means Destination Home or Self Shelter documented in this encounter ED Notes * Unknown, Unknown - 08/21/2012 9:27 AM EDT * Piper Crandall RN - 08/18/2012 11:29 AM EDT Medication teaching and discharge instructions given to pt who verbalized understanding and pt leftambulatory in stable condition with steady gait. Pt advised to eat a protein snack. * Edu Cross MD - 08/18/2012 10:25 AM EDT CHIEF COMPLAINT Chief Complaint Patient presents with ??? Leg Pain Pt reports that she has had pain in both of her legs from the thighs down since last night. cpta ibuprofen 600mg at 8:00am HPI Bonny Olivares is a 22 y.o. female who presents Patient states that last night she had some muscle twitching in her legs and an ache in both calves. She took states that she awoke this morning with pain in both legs and was having difficulty walking. She took 600 mg of Motrin about 8 AM. No chills no fever. The patient states that she as been taking prednisone taper for psoriasis. She states she'shad restless leg type problems before. Patient has had no injury. Other than steroids patient is not on any other medication. Patient states she smokes one pack of cigarettes a day. Walked into ed without difficulty.she states it feels as though she is being stabbed in the legs inmultiple places. REVIEW OF SYSTEMS See HPI for further details. Review of systems otherwise negative. PAST MEDICAL HISTORY Past Medical History Diagnosis Date ??? Knee injury ??? FAMILY HISTORY No family history on file. SOCIAL HISTORY History Social History ??? Marital Status: Single Spouse Name: N/A Number of Children: N/A ??? Years of Education: N/A Social History Main Topics ??? Smoking status: Current Everyday Smoker Types: Cigarettes ??? Smokeless tobacco: Never Used ??? Alcohol Use: No ??? Drug Use: No ??? Sexually Active: Yes -- Male partner(s) Other Topics Concern ??? Not on file Social History Narrative ??? No narrative on file SURGICAL HISTORY Past Surgical History Procedure Laterality Date ??? Appendectomy CURRENT MEDICATIONS Current Outpatient Rx Name Route Sig Dispense Refill ??? MEDROXYPROGESTERONE ACETATE (DEPO-PROVERA IM) Intramuscular Inject into the muscle. ??? predniSONE (DELTASONE) 10 mg tablet Oral Take 1 Tab by mouth daily. 6 pills x 3days, 5 pills x 3 days, 4 pills x 3 days, 3 pills x 3 days, 2pills x 3 days, 1 pills x 3 days 66 Tab 0 ALLERGIES Allergies Allergen Reactions ??? Sulfa (Sulfonamide Antibiotics) PHYSICAL EXAM VITAL SIGNS: BP 122/68 Pulse 87 Temp(Src) 97.6 ??F (36.4 ??C) (Oral) Resp 16 Ht 5' 5 (1.651 m) Wt 136 lb (61.689 kg) BMI 22.63 kg/m2 SpO2 100% Constitutional: Alert oriented x3 in no acute distress Cardiovascular: Normal heart rate, Normal rhythm, No murmurs, No rubs, No gallops. Thorax & Lungs: Normal breath sounds, No respiratory distress, No wheezing, No chest tenderness. Abdomen: Bowel sounds normal, Soft, No tenderness, No masses, No pulsatile masses. Skin: Warm, Dry, No erythema, No rash. Extremities: minimal calf tenderness bilaterally no calf swelling noted no Homans sign sensation normal in both legs no peripheral edema pulses equal bilaterally both legs Musculoskeletal: walks without difficulty Neurologic: Alert & oriented x 3, Normal motor function, Normal sensory function, No focal deficits noted. RADIOLOGY/PROCEDURES delete COURSE & MEDICAL DECISION MAKING Pertinent Labs & Imaging studies reviewed. (See chart for details) Patient advised to taper off of her steroids. She has an appointment cath lab manager next week for her psoriasis. Also advised her to use ibuprofen for the muscle pain. ? Reactive hypoglycemia FINAL IMPRESSION 1. Leg cramps and pain 2. psoriasis 3. Reactive hypoglycemia Condition stable 4 . Reaction to steroids Edu Cross MD 08/18/12 1119 Edu Cross MD 08/18/12 1130 documented in this encounter Plan of Treatment Not on file documented as of this encounter Procedures Procedure Name Priority Date/Time Associated Diagnosis Comments POCT URINALYSIS DIPSTICK STAT 08/18/2012 10:50 AM EDT BASIC METABOLIC PANEL STAT 08/18/2012 10:40 AM EDT documented in this encounter Results * POCT URINALYSIS DIPSTICK (08/18/2012 10:50 AM EDT) Color, UA YELLOW Clear, Yellow, [place], Rust Clarity, UA CLEAR Clear, Cloudy Glucose, UA N g/dl% Bilirubin, UA N Pos/Neg Ketones, UA N Pos/Neg Spec Grav, UA 1.030 1.001 - 1.035 g/dl Blood, UA N Pos/Neg pH, UA 6.5 5.0 - 8 Protein, UA N Pos/Neg Urobilinogen, UA 0.2 0.2 - 1.0 mg/dL Leukocytes, UA N Pos/Neg Nitrite, UA N Pos/Neg UA Appear POC CLEAR Lot Number [id number] Expiration Date SeriAl # Urine specimen (specimen) 08/18/2012 10:50 AM EDT us Edu Cross MD POINT OF CARE TEST ORDERABLES F inal Result * (ABNORMAL) BASIC METABOLIC PANEL (08/18/2012 10:40 AM EDT) Sodium 138 135 - 143 mmol/L [facility] Potassium 3.6 3.5 - 5.0 mmol/L [facility] Chloride 101 98 - 108 mmol/L [facility] Total CO2 29 22 - 31 mmol/L [facility] Anion Gap 8 7 - 16 mmol/L [facility] Calcium 9.2 8.6 - 10.3 mg/dL [facility] Glucose Lvl 69(L) 70 - 100 mg/dL [facility] BUN 16 7 - 19 mg/dL [facility] Creatinine 0.9 0.6 - 1.0 mg/dL [facility] GFR Afr Am >60 [facility] Comment: GFR is estimated using creatinine, age, gender, and race. ??GFR has been validated for patients between 18 and 70 years of age. GFR has not been validated for women, patients with serious comorbid conditions, or persons with extremes of body size, muscle mass, or nutritional status. ??For additional information: ??www.kidney.org. Chronic kidney disease stage ? GFR (ml/min/1.73 square meters) ? Stage 3 ? 30 - 59 ? Stage 4 ? 15 - 29 ? Stage 5 ? 14 or less GFR Non Afr Am >60 [facility] Blood specimen (specimen) UPPER LIMB STRUCTURE / Unknown 08/18/2012 10:40 AM EDT 08/18/2012 10:44 AM EDT us Edu Cross MD CHEMISTRY ORDERABLES Edited Res ult - Final [facility] [address] [place] [address] documented in this encounter Visit Diagnoses Diagnosis Leg cramps- Primary Cramp of limb Leg pain Pain in limb Cramp of limb Other psoriasis Hypoglycemia, unspecified Unspecified adverse effect of unspecified drug, medicinal and biological substance documented in this encounter Care Teams Caramel Cutter Machine Relationship Specialty Start Date End Date Nehemias Barron MD [address] [place] [address] PCP - General 12/01/10 documented as of this encounter
--- OUTSIDE RECORDS SUMMARY | 2024-03-07 05:10 | XMS_ITS | Encounter Summary ---
Author Organization [facility] [place] [address] Care Team Providers Care Research Methodologist Name Role Phone Nehemias Barron MD Primary Care Provider [phone] Reason for Visit * Reason Onset Date Comments Referral 08/14/2012 derm appt Encounter Details Date Type Department Care Team (Late st Contact Info) Description 08/14/2012 Telephone [facility] [address] [facility] [place] [address] Mallorie Gee MA [address] [place] [address] Referral (derm appt) Social History Tobacco Use Types Packs/Day Years [...] Telephone Encounter - Mallorie Gee MA - 08/14/2012 4:52 PM EDT Patient notified. * Telephone Encounter - Mallorie Gee MA - 08/14/2012 10:10 AM EDT left message to call back re: appt [phone] Dr. Marcos Diaz 08/22/12 2:30 in [place]. documented in this encounter Plan of Treatment Not on file documented as of this encounter Visit Diagnoses Not on filedocumented in this encounter Care Teams Research Methodologist Relationship Specialty Start Date End Date Nehemias Barron MD [address] [place] [address] PCP - General 12/01/10 documented as of this encounter
--- OUTSIDE RECORDS SUMMARY | 2024-03-07 05:10 | XMS_ITS | Encounter Summary ---
Author Organization [facility] [place] [place] [address] Care Team Providers Care General Office Dispatcher Name Role Phone Nehemias Barron MD Primary Care Provider [phone] Reason for Visit * Reason Onset Date Comments Visit Follow Up 05/31/2013 Encounter Details Date Type Department Care Team (Late st Contact Info) Description 05/31/2013 Telephone [facility] [address] [place] [id number] Andreea Bryant RMA Visit Follow Up Social History Tobacco Use [...] encounter Miscellaneous Notes * Telephone Encounter - Andreea Bryant MA - 05/31/2013 4:16 PM EST Lm for post visit call documented in this encounter Plan of Treatment Not on file documented as of this encounter Visit Diagnoses Not on filedocumented in this encounter Care Teams General Office Dispatcher Relationship Specialty Start Date End Date Nehemias Barron MD [address] [place] [address] PCP - General 12/01/10 documented as of this encounter
--- OUTSIDE RECORDS SUMMARY | 2024-03-07 05:10 | XMS_ITS | Encounter Summary ---
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 Encounter Details Date Type Department Care Team (Late st Contact Info) Description 02/11/2011 9:03 PM EDT - 02/11/2011 11:46 PM EDT [facility] [address] [place] [address] Raquel Covarrubias MD [address] [place] [id number] Abdominal pain; Other specified complication, antepartum Discharge Disposition: Short Term Hospital Social History Tobacco Use Types Packs/Day [...] Reading Time Taken Comments Blood Pressure 100/60 02/11/2011 10:53 PM EDT Pulse 79 02/11/2011 10:53 PM EDT Temperature 36.5 ??C (97.7 ??F) 02/11/2011 10:53 PM E DT Respiratory Rate 16 02/11/2011 10:53 PM EDT Oxygen Saturation 98% 02/11/2011 10:53 PM EDT Inhaled Oxygen Concentration - - Weight 61.2 kg (135 lb) 02/11/2011 9:12 PM EDT Height 165.1 cm (5' 5 ) 02/11/2011 9:12 PM EDT Body Mass Index 22.47 02/11/2011 9:12 PM EDT Body Mass Index Percentile 62.01% 02/11/2011 9:1 2 PM EDT Growth Chart: [facility] (Girls, 2- 20 Years) documented in this encounter Medications at Time of Discharge cephALEXin (KEFLEX) 500 mg capsule Take 1 Cap by mouth 4 times daily for 7 days. 28 Cap 0 02/12/2011 02/19/2011 documented as of this encounter Discharge Disposition Disposition Code Departure Means Destination [facility] documented in this encounter Progress Notes * Unknown, Unknown - 02/11/2011 9:23 PM EDT * Unknown, Unknown - 02/11/2011 9:01 PM EDT documented in this encounter Procedure Notes * Unknown, Unknown - 02/12/2011 8:42 AM EDTAssociated Order(s): SCANNED LABS documented in this encounter ED Notes * Unknown, Unknown - 02/12/2011 12:00 AM EDT * Jude Cazares RN - 02/11/2011 11:01 PM EDT Wallace Chu * Jude Cazares RN - 02/11/2011 10:55 PM EDT Report to EMS, transfer to [facility]. * Jude Cazares RN - 02/11/2011 10:30 PM EDT Report to OSCAR Hernandez charge nurse at [place] [facility], awaiting disposition. * Jude Cazares RN - 02/11/2011 10:12 PM EDT Pt to be transferred to [facility], no changes noted. * Raquel Covarrubias MD - 02/11/2011 10:09 PM EDT CHIEF COMPLAINT Chief Complaint Patient presents with ??? 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 HPI Bonny Olivares is a 20 y.o. female who presents to the emergency department today for evaluation of a four-day history of left lower abdominal pain that radiates down to the left pelvis. Patient states that it is typically a dull, constant ache but intermittent sharp pain. She denies experiencing fever, chills, nausea, vomiting diarrhea, urinary symptoms, abnormal vaginal bleeding or discharge. Pat ient states that she is approximately 17 weeks by dates, . She states that her EDC is July 18, 2010. She has had two previous ultrasounds, last one being 01/30 which showed an IUP with cardiac activity, placenta previa. She states that she is currently not followed by OB as she is between insurances right now. Patient states that her symptoms are moderately severe in nature. No care prior to presentation. No relieving or exacerbating factors. REVIEW OF SYSTEMS See HPI for further details. Review of systems otherwise negative. PAST MEDICAL HISTORY Past Medical History Diagnosis Date ??? Knee injury ??? FAMILY HISTORY History reviewed. No pertinent family history. SOCIAL HISTORY History Social History ??? Marital Status: Single Spouse Name: N/A Number of Children: N/A ??? Years of Education: N/A Social History Main Topics ??? Smoking status: Former Smoker ??? Smokeless tobacco: Never Used ??? Alcohol Use: No ??? Drug Use: No ??? Sexually Active: Yes -- Male partner(s) Other Topics Concern ??? None Social History Narrative ??? None SURGICAL HISTORY Past Surgical History Procedure Date ??? Appendectomy CURRENT MEDICATIONS Current Outpatient Rx Name Route Sig Dispense Refill ??? VITAMIN ORAL Oral Take by mouth. ??? ACETAMINOPHEN 325 MG TAB Oral Take by mouth every 4 hours as needed for Pain. Take as directed 30 Tab 1 ALLERGIES Allergies Allergen Reactions ??? Sulfa (Sulfonamide Antibiotics) PHYSICAL EXAM VITAL SIGNS: BP 109/61 Pulse 84 Temp(Src) 97.7 ??F (36.5 ??C) (Oral) Resp 18 Ht 5' 5 (1.651 m) Wt 135 lb (61.236 kg) BMI 22.47 kg/m2 SpO2 99% Constitutional: Well developed, Well nourished, No acute distress, Non-toxic appearance. HENT: Normocephalic, Atraumatic, Bilateral external ears normal, Oropharynx moist, TMs clear. Eyes: PERRLA, EOMI, Conjunctiva normal, No discharge. Neck: Normal range of motion, No tenderness, Supple, No stridor. Lymphatic: No lymphadenopathy noted. Cardiovascular: Normal heart rate, Normal rhythm, No murmurs, No rubs, No gallops. Thorax & Lungs: Normal breath sounds, No respiratory distress, No wheezing, No chest tenderness. Abdomen: Soft with normal bowel sounds. Left lower quadrant and left adnexal tenderness to palpation. Skin: Warm, Dry, No erythema, No rash. Back: No tenderness, No CVA tenderness. Extremities: Intact distal pulses, No edema, No tenderness, No cyanosis Neurologic: Alert & oriented x 3, Normal motor function, Normal sensory function, No focal deficits noted. RADIOLOGY/PROCEDURES 12/01/10 Pelvic ultrasound consistent with a 6 week IUP. 01/30/11 pelvic ultrasound performed at [facility] emergency Department: 15 week IUP with a marginal placenta previa. Labs Reviewed POCT URINALYSIS DIPSTICK - Abnormal; Notable for the following: pH, UA 7.0 (*) All other components within normal limits CBC WITH AUTO DIFF - Abnormal; Notable for the following: RBC 3.29 (*) Hgb 10.6 (*) Hct 29.2 (*) MCHC 36.2 (*) Platelet 144 (*) All other components within normal limits AUTO DIFF - Abnormal; Notable for the following: Eos# 0.0 (*) All other components within normal limits BASIC METABOLIC PANEL Transabdominal bedside ultrasound performed in the emergency department by me shows an IUP with cardiac activity. COURSE & MEDICAL DECISION MAKING Pertinent Labs & Imaging studies reviewed. (See chart for details) Transabdominal ultrasound performed at the bedside by me to evaluate for cardiac activity is noted above. Given patient's physical exam findings and history of a dull, constant left-sided pelvic pain as intermittent sharp, I am concerned for an ovarian torsion. Thus, we'll transfer the patient to [facility] to obtain an ultrasound to rule out torsion. At 2205, I discussed the case with Dr. Senior from radiology who approved ultrasound to be called in from home. Patient's family requests that she be transferred by squad. Patient's family member states they will follow the ambulance to the emergency department. I did discuss the case with the charge nurse in the ED at [facility] in [place]. She states that she will call an ultrasound upon patient's arrival in the department. FINAL IMPRESSION Abdominal pain Pregancy Raquel Covarrubias MD 02/11/112214 * Jude Cazares RN - 02/11/2011 9:33 PM EDT Pt up to bathroom, urine specimen obtained. * Jude Cazares RN - 02/11/2011 9:21 PM EDT Attempt for FHT's unsuccessfull, pt stated abd too tender to tolerate, notified. documented in this encounter Plan of Treatment Scheduled Orders Name Type Priority Associated Diagnoses Orde r Schedule SALINE LOCK IV IV STAT One Time f or 1 Occurrences starting 02/11/2011 until 02/11/2011 US PELVIS AND TRANSVAGINAL NON OB COMPLETE Imaging STAT One time imaging for 1 Occurrences starting 02/11/2011 until 02/11/2011 documented as of this encounter Procedures Procedure Name Priority Date/Time Associated Diagnosis Comments SCANNED LABS 02/12/2011 8:43 AM EDT DIFFERENTIAL STAT 02/11/2011 9:50 PM EDT CBC WITH DIFF STAT 02/11/2011 9:50 PM EDT BASIC METABOLIC PANEL STAT 02/11/2011 9:50 PM EDT POCT URINALYSIS DIPSTICK STAT 02/11/2011 9:38 PM EDT documented in this encounter Results * SCANNED LABS (02/12/2011 8:43 AM EDT) Narrative Transcriptions Unknown, Unknown - 02/12/2011 8:42 AM EDT us Unknown Unknown HEMATOLOGY ORDERABLES Final Resu lt * (ABNORMAL) AUTO DIFF (02/11/2011 9:50 PM EDT) Neut Percent 62.7 40.0 - 70.0 % [facility] Lymph Percent 27.9 17.0 - 46.0 % [facility] [place] Percent 7.9 4.0 - 12.0 % [facility] Eos Percent 1.0 0.0 - 6.0 % [facility] Baso Percent 0.5 0.0 - 2.0 % [facility] Neut# 2.9 1.8 - 7.7 x10(3)/mcL [facility] Lymph# 1.3 1.0 - 4.8 x10(3)/mcL [facility] Licking# 0.4 0.0 - 1.3 x10(3)/mcL [facility] Eos# 0.0(L) 0.1 - 0.5 x10(3)/mcL [facility] Baso# 0.0 0.0 - 0.2 x10(3)/mcL [facility] Blood specimen (specimen) 02/11/2011 9:50 PM EDT 02/11/2011 9:50 PM EDT us Raquel Covarrubias MD HEMATOLOGY ORDERABLES Final Result [facility] [address] [place] [address] * BASIC METABOLIC PANEL (02/11/2011 9:50 PM EDT) Sodium 136 135 - 143 mmol/L [facility] Potassium 3.5 3.5 - 5.0 mmol/L [facility] Chloride 105 98 - 108 mmol/L [facility] Total CO2 24 22 - 31 mmol/L [facility] Anion Gap 7 7 - 16 mmol/L [facility] Calcium 8.7 8.6 - 10.7 mg/dL [facility] Glucose Lvl 84 70 - 100 mg/dL [facility] BUN 10 7 - 19 mg/dL [facility] Creatinine 0.6 0.6 - 1.0 mg/dL [facility] GFR Afr Am >60 [facility] Comment: GFR is estimated using creatinine, [...] or less GFR Non Afr Am >60 [facility] Blood specimen (specimen) UPPER LIMB STRUCTURE / Unknown 02/11/2011 9:50 PM EDT 02/11/2011 9:50 PM EDT Raquel Covarrubias MD CHEMISTRY ORDERABLES Edited Performing Organization Address [facility] Co de Phone Number [facility] [address] [place] [address] * (ABNORMAL) CBC WITH AUTO DIFF (02/11/2011 9:50 PM EDT) WBC 4.6 4.0 - 11.0 x10(3)/mcL [facility] RBC 3.29(L) 4.00 - 5.10 x10(6)/mcL [facility] Hgb 10.6(L) 12.0 - 15.7 gm/dL [facility] Hct 29.2(L) 36.0 - 45.9 % [facility] MCV 88.9 80.0 - 95.8 fL [facility] MCH 32.1 27.0 - 33.2 pg [facility] MCHC 36.2(H) 33.0 - 36.0 gm/dL [facility] RDW 12.0 11.5 - 14.5 % [facility] Platelet 144(L) 150 - 400 x10(3)/mcL [facility] MPV 8.8 7.0 - 12.0 fL [facility] Blood specimen (specimen) UPPER LIMB STRUCTURE / Unknown 02/11/2011 9:50 PM EDT 02/11/2011 9:50 PM EDT Raquel Covarrubias MD HEMATOLOGY ORDERABLES Final Result Performing Organization Address [facility] de Phone Number [facility] [address] [place] [address] * (ABNORMAL) POCT URINALYSIS DIPSTICK (02/11/2011 9:38 PM EDT) Color, UA yellow Clear, Yellow, Elliott, Rust Clarity, UA clear Clear, Cloudy Glucose, UA neg g/dl% Bilirubin, UA neg Pos/Neg Ketones, UA neg Pos/Neg Spec Grav, UA 1.025 1.020 - 1.030 g/dl Blood, UA neg Pos/Neg pH, UA 7.0(A) 5.0 - 6.5 Protein, UA neg Pos/Neg Urobilinogen, UA 1.0 0.2 - 1.0 mg/dL Leukocytes, UA small Pos/Neg Nitrite, UA neg Pos/Neg Appear BF Clear Clear, Slightly Cloudy Clear, Cloudy Lot Number [id number] Expiration Date 04/2012 SeriAl # Urine specimen (specimen) 02/11/2011 9:38 PM EDT Raquel Covarrubias MD POINT OF CARE TEST ORDERABLE S Final Result documented in this encounter Visit Diagnoses Diagnosis Abdominal pain Abdominal pain, unspecified site Other specified complication, antepartum(646.83) Other specified complication, antepartum documented in this encounter Administered Medications Inactive Administered Medications - up to 1 most recent administrations Medication Order MAR Action Action Date Dose Rate Site morphine injection 4 mg 4 mg, Intravenous, ONCE, 1 dose, On Patti 02/11/11 at 2230 Given 02/11/2011 10:24 PM EDT 4 mg ondansetron (ZOFRAN) 4 mg/2 mL injection 4 mg 4 mg, Intravenous, ONCE, 1 dose, On Patti 02/11/11 at 2230 Given 02/11/2011 10:22 PM EDT 4 mg sodium chloride 0.9 % 1,000 mL IV bolus Intravenous, ONCE, 1 dose, On Patti 02/11/11 at 2230, at 1,000 mL/hr IV Started 02/11/2011 10:20 PM EDT 1000 mL/hr documented in this encounter Active and Recently Administered Medications Times are shown in EDT. Scheduled Medication Order 02/09/2011 02/10/2011 02/11/2011 morphine injection 4 mg (COMPLETED) 4 mg, Intravenous, ONCE, 1 dose, On Patti 02/11/11 at 2230 2224 (Given - Provid er: Jude Cazares RN) ondansetron (ZOFRAN) 4 mg/2 mL injection 4 mg (COMPLETED) 4 mg, Intravenous, ONCE, 1 dose, On Patti 02/11/11 at 2230 2222 (Given - Provid er: Jude Cazares RN) sodium chloride 0.9 % 1,000 mL IV bolus (COMPLETED) Intravenous, ONCE, 1 dose, On Patti 02/11/11 at 2230, at 1,000 mL/hr 2220 (IV Started - P rovider: Jude Cazares RN) documented in this encounter Care Teams Locomotive Repairer Diesel Relationship Specialty Start Date End Date Nehemias Barron MD [address] [place] [id number] PCP - General 12/01/10 documented as of this encounter
--- OUTSIDE RECORDS SUMMARY | 2024-03-07 05:10 | XMS_ITS | Encounter Summary ---
Author Organization [place] [address] Care Team Providers Care Heel Finisher Name Role Phone Nehemias Braron MD Primary Care Provider [phone] Reason for Visit * Reason Onset Date Comments Other 06/08/2013 Encounter Details Date Type Department Care Team (Late st Contact Info) Description 06/08/2013 Telephone [facility] [address] [phone] Andreea Bryant RMA Other Social History Tobacco Use Types Packs/Day [...] Telephone Encounter - Moon Dutton MA - 06/22/2013 8:18 AM EDT -pt aware; letter sent; KELLI ref#[id number] * Telephone Encounter - Moon Dutton MA - 06/14/2013 11:31 AM EST Called patient to inform them of their upcoming surgery and related information. Patient is scheduled for SURGERY on 06/27/13 at 1:45 PM at the [facility]. Patient will need to arrive two hoursprior to their scheduled procedure time. Patient was advised nothing to eat or drink from midnight the night prior to their procedure. If they smoke, they are advised not to smoke the day of the procedure. The hospital will contact the patient to register and schedule any necessary pre-admission testing with the patient. Patient informed must keep their pre-admission testing appointment or the surgery will be cancelled. The patient will also receive a letter with this information as well as a follow up appointment information. * Telephone Encounter - Andreea Bryant MA - 06/08/2013 9:35 AM EST Pt called to cancel appointment in office for leep procedure. Stated she would rather have done in OR after research that she has done. Spoke with Dr. Castellanos and she said it was fine just to let Jennifer know to schedule leep in OR. Advised pt that as soon as we have it scheduled that our office wouldcontact her. Pt wanted procedure done same day. She is aware that Dr. Castellanos is in the office that day and procedure will not be same day if done in the OR. documented in this encounter Plan of Treatment Not on file documented as of this encounter Visit Diagnoses Not on filedocumented in this encounter Care Teams Heel Finisher Relationship Specialty Start Date End Date Nehemias Barron MD [address] [place] [address] PCP - General 12/01/10 documented as of this encounter
--- OUTSIDE RECORDS SUMMARY | 2024-03-07 05:10 | XMS_ITS | Encounter Summary ---
Author Organization [place] [address] Care Team Providers Care Peoplesoft Developer Name Role Phone Nehemias Barron MD Primary Care Provider [phone] Reason for Visit * Auth/Cert/Inpt Specialty Diagnoses / Procedures Referred By Contac t Referred To Contact Diagnoses Carcinoma in situ of cervix uteri CANCER CERVIX Procedures LOOP EXCISION PROCEDURE (LEEP) Referral ID Status Reason Start Date Expiration Date Visits Re quested Visits Authorized [id number] 1 1 Encounter Details Date Type Department Care Team (Late st Contact Info) Description 06/27/2013 1:45 PM EDT - 06/27/2013 2:30 PM EDT Surgery [facility] [address] [place] [address] Sachin Castellanos MD [address] [place] [address] LOOP ELECTROSURGICAL EXCISION PROCEDURE (LEEP) Surgery Details Date/Time Status Location OR Service Patient Class Case Class Case Type Trauma Case? 06/27/2013 1:45 PM Posted [facility] OR 04 Gynecology Same Day Surgery N/A Panel 1 Procedure LRB Anes Op Region Wound Class Comments LOOP ELECTROSURGICAL EXCISION PROCEDURE (LEEP) N/A General Clean Contamina zane LOOP EXCISION PROCEDURE (LEEP) Surgeon Surgeon Role Service Panel Sachin Castellanos MD Primary Gynecology 1 Special Needs DATA PER W/ZCPT 12153 MIRANDA DF3-6 documented in this encounter Social History Tobacco Use Types Packs/Day Years Used Date Smoking Tobacco: Every Day Cigarettes 0.5 7 Smokeless Tobacco: Never Tobacco Cessation:Ready to Q uit: No; Counseling Given: No Comments:info refused Alcohol Use Standard Drinks/Week [...] Sign Reading Time Taken Comments Blood Pressure 106/74 06/27/2013 3:42 PM EDT Pulse 84 06/27/2013 3:42 PM EDT Temperature 36.5 ??C (97.7 ??F) 06/27/2013 3:42 PM ED T Respiratory Rate 20 06/27/2013 3:42 PM EDT Oxygen Saturation 100% 06/27/2013 3:42 PM EDT Inhaled Oxygen Concentration - - Weight 61.2 kg (135 lb) 06/27/2013 12:25 PM EDT Height 165.1 cm (5' 5 ) 06/27/2013 12:25 PM EDT Body Mass Index 22.47 06/27/2013 12:25 PM EDT documented in this encounter Discharge Instructions * Discharge Instructions* Kelli Booker, OSCAR - 06/27/2013 3:36 PM EDT Post Polygraph Operator procedure instructions . 1. Follow-up with Dr. Castellanos in office ~2 weeks 2. Nothing in vagina x 3 weeks 3. No driving while on pain meds 4. Call office anytime if any concerns, especially fever, severe abdominal or pelvic pain, heavy vaginal bleeding, or foul smelling vaginal discharge [facility] Discharge Instructions - Following Sedation 1. A responsible adult, 18 years or older must be in attendance until the next morning. 2. Rest quietly today. 3. May resume usual diet. 4. Do not drive or operate any machinery until the next morning or as instructed. 5. Do not make any legal or important decisions for the next 24 hours. 6. Do not drink alcoholic beverages or take sleeping pills for 24 hours unless otherwise directed. documented in this encounter Medications at Time of Discharge HYDROcodone-aceta minophen (NORCO) 5-325 mg per tablet Take 1 Tab by mouth every 6 hours as needed for Pain for 10 days. 15 Tab 0 06/27/2013 07/07/2013 documented as of this encounter Ordered Prescriptions Prescription Sig Dispense Quantity Refills Last Filled Start Date End Date HYDROcodone-acetam inophen (NORCO) 5-325 mg per tablet Take 1 Tab by mouth every 6 hours as needed for Pain for 10 days. 15 Tab 0 06/27/2013 07/07/2013 documented in this encounter Discharge Disposition Disposition Code Departure Means Destination Home or Self Care Car Home documented in this encounter H&P Notes * StephanieElly Wanda, DO - 06/27/2013 12:30 PM EDT HISTORY & PHYSICAL Patient is a 22 y.o. female here for LEEP procedure . Has been having vaginal bleeding since the biopsy colposcopy in office on 05/29/13. Having some pain in RLQ as well. Seen in ER twice since the biopsy. Patient Active Problem List Diagnosis Date Noted ??? Severe dysplasia of cervix (MATT III) 05/29/2013 Priority: High Class: Present on Admission ??? RA (rheumatoid arthritis) ??? Syncope, vasovagal 09/22/2011 Past Medical History Diagnosis Date ??? Knee [...] patient in office before surgery Past Surgical History Procedure Laterality Date ??? Appendectomy age 7 ??? Cervix biopsy 2010, 05/29/2013 ??? Skin cancer excision 06/2012 melanoma back No prescriptions prior to admission Allergies Allergen Reactions ??? Sulfa (Sulfonamide Antibiotics) Swelling and Rash throat closes up, rash, and red everywhere History Substance Use Topics ??? Smoking status: Current Every Day Smoker -- 0.50 packs/day for 7 years Types: Cigarettes ??? Smokeless tobacco: Never Used Comment: info refused ??? Alcohol Use: No Family History Problem Relation Age of Onset ??? Cancer Maternal Grandmother melanoma ??? Anesth Problems Neg Hx Review of Systems A comprehensive review of systems was negative. Objective: No data found. General Appearance: Alert, cooperative, no distress, appears stated age. Head: Normocephalic, Atraumatic. Eyes: CAROL, conjunctiva/corneas clear, EOM's intact. Nose: Nares normal, septum midline, mucosa normal, no drainage or sinus tenderness. Throat: Lips, mucosa, and tongue normal. Neck: Supple, symmetrical, trachea midline, no adenopathy. Thyroid: no enlargement/tenderness/nodules; no carotid bruit or JVD. Back: Symmetric, no curvature, ROM normal, no CVA tenderness. Lungs: Clear to auscultation bilaterally, respirations unlabored. Chest Wall: No tenderness or deformity. Heart: Regular rate and rhythm, S1 and S2 normal. No murmur, rub or gallop. Abdomen: Soft, non-tender, bowel sounds active all four quadrants, no masses, no organomegaly. Extremities: Extremities normal, atraumatic, no cyanosis or edema. Pulses: 2+ and symmetric all extremities. Skin: Skin color, texture, turgor normal. Lymph nodes: Cervical, supraclavicular, and axillary nodes normal. Neurologic: Normal sensation and reflexes. Data Review: No visits with results within 1 Day(s) from this visit. Latest known visit with results is: Hospital Outpatient Visit on 05/31/2013 Component Date Value ??? Beta hCG Quant 05/31/2013 0 Assessment/Plan: Active Problems: Severe dysplasia of cervix (MATT III). For LEEP today. Elly Brown, documented in this encounter Procedure Notes * Unknown, Unknown - 06/30/2013 10:43 AM EDTAssociated Order(s): SCANNED PRE/POST PROCEDURES * Unknown, Unknown - 06/30/2013 10:43 AM EDTAssociated Order(s): SCANNED ANESTHESIA FORMS * Sachin Castellanos MD - 06/27/2013 2:50 PM EDT [facility]/[place], [place] NAME: NAEEM OLIVARES [facility] DIV[facility]#: [id number] LOCATION/ROOM: [facility] FACILITY: [facility] DICTATOR: Sachin Castellanos OPERATIVE REPORT DATE OF OPERATION: 06/27/2013 DATE OF : 1990 PREOPERATIVE DIAGNOSIS: High-grade cervical dysplasia, MATT-3. POSTOPERATIVE DIAGNOSIS: High-grade cervical dysplasia, MATT-3. PROCEDURE PERFORMED: Cervical LEEP conization. SURGEON: Sachin Castellanos M.D. ANESTHESIA: General. FINDINGS AND INDICATION: The patient is a 22-year-old white female who had an abnormal Pap smear, underwent a colposcopy directed biopsy confirming MATT-3 cervical dysplasia. Findings with procedure and complications were explained to the patient. Examination today reveals the external genitalia is normal. Vagina is normal. Cervix, there is thick mosaic pattern in the anterior lip around 1 o'clock and 12 o'clock position. The posterior lip had some acetowhite areas. As the cervix was hypertrophied, the specimen could not be obtained in one pass, hence separately anterior and posterior lip specimens were removed. Endocervical specimen was also removed. Total blood loss 10 mL. OPERATIVE PROCEDURE: The patient was brought to the OR, placed in supine position, and after adequate general anesthesia was placed in the lithotomy position. A heat-resistant speculum was placed into the vagina. Cervix and vagina were cleaned with acetic acid and the areas were marked. Using the 2 x 0.8 loop and the setting at 50-50 blend, both the anterior cervical lip and the posterior cervical lip specimens were removed in one pass. For the endocervical specimen, 1 x 1 loop was used and it was sent separately it from the ectocervical specimen. Ball electrode was then used for hemostasis. Complete hemostasis maintained. The speculum was removed. Instrument and sponge count was normal. The patient withstood the procedure very well and transferred to recovery in stable condition. Sachin Castellanos MD C: 2013 14:08 By: [facility]/dj Job ID: [id number] Doc ID: [id number] CC: * Sachin Castellanos MD - 06/27/2013 2:16 PM EDT [facility] OPERATIVE/PROCEDURE NOTE PRE-OP DIAGNOSIS: MATT 3. POST-OP DIAGNOSIS: Same PROCEDURE(S): Cx Leep SURGEON(S): Surgeon(s) and Role: * Sachin Castellanos MD - Primary INSPECTOR FLOOR(S): ANESTHESIA: General SPECIMENS: . ESTIMATED BLOOD LOSS: 10.mL OTHER INFO: DISPOSITION/POST PROC COURSE: PACU. Full op note dictated.#[id number] Sachin Castellanos MD Date: 11/11/2011 documented in this encounter Nursing Notes * Clotilde Cheatham RN - 06/22/2013 9:19 AM EDT Called for database, to call back. documented in this encounter Miscellaneous Notes * Miscellaneous - Unknown, Unknown - 07/02/2013 3:49 PM EDT documented in this encounter Plan of Treatment Not on file documented as of this encounter Procedures Procedure Name Priority Date/Time Associated Diagnosis Comments SCANNED PRE/POST PROCEDURES 06/30/2013 10:43 AM EDT SCANNED ANESTHESIA FORMS 06/30/2013 10:43 AM EDT SCANNED RHYTHM STRIPS 06/30/2013 10:43 AM EDT PATHOLOGY TISSUE REPORT Routine 06/27/2013 2:40 PM EDT LOOP ELECTROSURGICAL EXCISION PROCEDURE (LEEP) 06/27/2013 2:28 PM EDT Carcinoma in situ of cervix uteri Special Needs DATA PER W/ZT [id number] MIRANDA DF3-6 POCT URINE Routine 06/27/2013 12:40 PM EDT documented in this encounter Results * SCANNED PRE/POST PROCEDURES (06/30/2013 10:43 AM EDT) Narrative Procedure Note Unknown, Unknown - 06/30/2013 10:43 AM EDT us Unknown Unknown PROCEDURE/MINOR SURGICAL ORDERAB LES Final Result * SCANNED ANESTHESIA FORMS (06/30/2013 10:43 AM EDT) Narrative Procedure Note Unknown, Unknown - 06/30/2013 10:43 AM EDT us Unknown Unknown PROCEDURE/MINOR SURGICAL ORDERAB LES Final Result * SCANNED RHYTHM STRIPS (06/30/2013 10:43 AM EDT) Anatomical Region Laterality Modality Other us Unknown Unknown IMG ECG ORDERABLES Final Result * PATHOLOGY TISSUE REPORT (06/27/2013 2:40 PM EDT) Surgical Pathology Report ? PATIENT NAME:NAEEM OLIVARES ?Surgical Pathology Report ? Accession Number ?Collected Date/Time ? Received Date/Time ? [id number] ? 06/27/13 14:40 EDT ?06/28/13 11:34 EDT ? Diagnosis ? 1) Anterior cervix, LEEP: ? - High-grade dysplasia (MATT-3) arising in transformation zone mucosa and ? extending into endocervical glands. ? - The ectocervical margin is positive for high-grade dysplasia. ? 2) Posterior cervix, LEEP: ? - Mild to moderate dysplasia (MATT 1-2) arising in transformation zone ? mucosa. ? - Margins are negative for moderate dysplasia. ? 3) Endocervix, biopsy: ? - Endocervical glands and stroma, negative for dysplasia. ? - No squamous epithelium present. ? Roxana Ross ? (Electronically signed by) ? Verified: 06/29/2013 ? [facility] ? Clinical Information ? Cervical cancer. ? Gross Description ? Part 1) Received in formalin labeled with the patient's name and anterior ? cervix is a 1.6 x 1.1 x 0.3 cm apparent cervical tissue with a smooth murry ? ectocervix along one side. The deep stromal margin is inked. The specimen ? is serially sectioned. No focal lesions are identified. The specimen is ? entirely submitted in two cassettes. / ? Part 2) Received in formalin labeled with the patient's name and posterior ? cervix is a 1.8 x 0.7 x 0.3 cm apparent cervical tissue with a smooth murry ? ectocervix along one side. The deep stromal margin is inked. The specimen ? is serially sectioned. No focal lesions are identified. The specimen is ? entirely submitted in two cassettes. /BC ? Part 3) Received in formalin labeled with the patient's name and ? endocervix is a 0.8 x 0.5 x 0.2 cm red-murry tissue fragment. Sectioned and ? entirely submitted in one cassette. ? /BC ? MR /BR ? Microscopic Description ? Microscopic examination is performed and the findings corroborate the ? diagnosis. [facility] 06/27/2013 2:40 PM EDT Sachin Castellanos MD PATHOLOGY ORDERABLES Final Resul t Performing Organization Address [facility] Co de Phone Number [facility] [address] [place] [address] * POCT URINE (06/27/2013 12:40 PM EDT) Preg Test, Ur negative Pos/Neg [facility] Lot Number [id number] [facility] Expiration Date 01/2014 [facility] SeriAl # [facility] Control Line Yes Yes/No [facility] Urine specimen (specimen) 06/27/2013 12:40 PM EDT Ginger Arzate APRN POINT OF CARE TEST ORDERABLE S Final Result Performing Organization Address [facility] de Phone Number [facility] [address] [place] [address] documented in this encounter Visit Diagnoses Diagnosis Severe dysplasia of cervix (MATT III) 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 PRN Medication Order 06/25/2013 06/26/2013 06/27/2013 lactated ringers infusion (COMPLETED) Intravenous, at 100 mL/hr, PREPROCEDURE CONTINUOUS, 1 dose, Starting on Tue06/27/13 at 0007, Until Tue06/27/13 at 1543, To be given in SDS/Pre-op Hold, Pre-op (Holding/SDS Meds) 1250 (New Bag - Prov ider: Kelli Booker RN)1543 (Stopped - Provider: Kelli Booker RN) documented in this encounter Orders Medications Ordered That Horace ht Not Have Been Administered Count Last Ordered Date First Ordered Date dimenhyDRINATE (DRAMAMINE) injection 25 mg 1 06/27/2013 fentaNYL (SUBLIMAZE) 50 mcg/ mL injection 25 mcg 1 06/27/2013 Hydromorphone (DILAUDID) injection 0.5 mg 1 06/27/2013 ondansetron (ZOFRAN) 4 mg/2 mL injection 4 mg 1 06/27/2013 ondansetron (ZOFRAN-ODT) dis integrating tablet 8 mg 1 06/27/2013 oxyCODONE-acetaminophen (PER COCET) 5-325 mg per tablet 1 Tab 1 06/27/2013 Nursing Count Last Ordered Date First Orde red Date NURSING COMMUNICATION 2 06/27/2013 VERIFY INFORMED CONSENT 1 06/27/2013 Discharge Count Last Ordered Date First Orde red Date DISCHARGE PATIENT 1 06/27/2013 documented in this encounter Care Teams Peoplesoft Developer Relationship Specialty Start Date End Date Nehemias Barron MD [address] [place] [address] PCP - General 12/01/10 documented as of this encounter
--- OUTSIDE RECORDS SUMMARY | 2024-03-07 05:10 | XMS_ITS | Encounter Summary ---
Author Organization [place] [address] Care Team Providers Care Health Practice Manager Name Role Phone Nehemias Barron MD Primary Care Provider [phone] Reason for Visit * Reason Comments Leg Pain Pt was seen at [facility] ED earlier today. Pt states only abnormal lab as BS of 69. Pt states woke up with bilateral leg pain today, states took a nap and woke up with leg pain again. CPTA ibuprophen this AM. Encounter Details Date Type Department Care Team (Late st Contact Info) Description 08/18/2012 7:49 PM EDT - 08/18/2012 11:05 PM EDT Emergency [facility] [place] [address] Bienvenido Leos MD [address] [place] [id number] Bilateral leg pain (Primary Dx) Discharge Disposition: Home or [...] Sign Reading Time Taken Comments Blood Pressure 112/64 08/18/2012 11:00 PM EDT Pulse 72 08/18/2012 11:00 PM EDT Temperature 36.6 ??C (97.8 ??F) 08/18/2012 7:54 PM ED T Respiratory Rate 16 08/18/2012 7:54 PM EDT Oxygen Saturation 100% 08/18/2012 7:54 PM EDT Inhaled Oxygen Concentration - - Weight 61.2 kg (135 lb) 08/18/2012 7:54 PM EDT Height 165.1 cm (5' 5 ) 08/18/2012 7:54 PM EDT Body Mass Index 22.47 08/18/2012 7:54 PM EDT documented in this encounter Discharge Instructions * Attachments The following attachments cannot be sent through Care Everywhere. * PAIN OF UNKNOWN ETIOLOGY (PAIN WITHOUT A KNOWN CAUSE) (MOSOTHO) * CYCLOBENZAPRINE-ORAL ([place]) documented in this encounter Medications at Time of Discharge cyclobenzaprine (FLEXERIL) 10 mg tablet Take 1 Tab by mouth 3 times daily as needed for Muscle spasms for 15 doses. 15 Tab 0 08/18/2012 09/17/2012 documented as of this encounter Ordered Prescriptions Prescription Sig Dispense Quantity Refills Last Filled Start Date End Date cyclobenzaprine (FLEXERIL) 10 mg tablet Take 1 Tab by mouth 3 times daily as needed for Muscle spasms for 15 doses. 15 Tab 0 08/18/2012 09/17/2012 documented in this encounter Discharge Disposition Disposition Code Departure Means Destination Home or Self Usp documented in this encounter ED Notes * Bienvenido Leos MD - 08/18/2012 8:11 PM EDT Chief Complaint Patient presents with ??? Leg Pain Pt was seen at [facility] ED earlier today. Pt states only abnormal lab as BS of 69. Pt states woke up with bilateral leg pain today, states took a nap and woke up with leg pain again. CPTA ibuprophen this AM. HPI Comments: Patient is a 22-year-old female who presents to the emergency department complaining of bilateral leg pain. She reports that the pain was severe enough that it woke her from sleep earlythis morning. She reports burning pain that originally seemed to start above her knees and went into the lower legs bilaterally. She went to another hospital and had testing done and was unremarkable. She apparently took a nap and when she woke up the pain was once again present and seemed worse than the initial episode. For that reason she returns to the emergency department for evaluation. She denies fevers or chills. She is not experiencing diffuse malaise or myalgias. She denies any recent i njury or impact to the lower extremities. She denies any recent increase in physical activity. She denies any prior history of similar pain. She is In the process of tapering off of prednisone which was treatment for psoriasis. The history is provided by the patient. Allergies Allergen Reactions ??? Sulfa (Sulfonamide Antibiotics) Home Medications: Prior to Admission medications Medication Sig Start Date End Date Taking? Authorizing Provider predniSONE (DELTASONE) 10 mg tablet Take 1 Tab by mouth daily. 6 pills x 3days, 5 pills x 3 days, 4pills x 3 days, 3 pills x 3 days, 2 pills x 3 days, 1 pills x 3 days 08/09/12 08/09/13 Yes Bella Richmond MD MEDROXYPROGESTERONE ACETATE (DEPO-PROVERA IM) Inject into the muscle. Provider, Historical Past Medical History: Past Medical History Diagnosis Date ??? Knee injury ??? Social History: reports that she has been smoking Cigarettes. She has been smoking about 1.00 pack per day. She has never used smokeless tobacco. She reports that she currently engages in sexual activity. She reports that she does not drink alcohol or use illicit drugs. Family History: No family history on file. Surgical History: Past Surgical History Procedure Laterality Date ??? Appendectomy Review of Systems All other systems reviewed and are negative. Blood pressure 119/72, pulse 90, temperature 97.8 ??F (36.6 ??C), temperature source Oral, resp. rate 16, height 5' 5 (1.651 m), weight 135 lb (61.236 kg), SpO2 100.00%. Physical Exam Nursing note and vitals reviewed. Constitutional: She is oriented to person, place, [...] and normal heart sounds. Exam reveals no gallop and no friction rub. No murmur heard. Pulmonary/Chest: Effort normal and breath sounds normal. No respiratory distress. She has no wheezes. She has no rales. Abdominal: Soft. Bowel sounds are normal. She exhibits no distension. There is no tenderness. Thereis no rebound and no guarding. Musculoskeletal: Normal range of motion. She exhibits no edema and no tenderness. Neurological: She is alert and oriented to person, place, and time. Skin: Skin is warm and dry. No rash noted. Psychiatric: She has a normal mood and affect. Her behavior is normal. Judgment and thought contentnormal. Procedures Radiology/EKG/Labs: Results for orders placed during the hospital encounter of 08/18/12 CBC WITH AUTO DIFF Result Value Range WBC 7.4 3.8 - 10.8 x10(3)/mcL RBC 4.43 3.80 - 5.10 x10(6)/mcL Hgb 14.3 11.7 - 15.5 gm/dL Hct 41.6 35.0 - 45.0 % MCV 93.7 80.0 - 100.0 fL MCH 32.2 27.0 - 33.0 pg MCHC 34.3 32.0 - 36.0 gm/dL RDW 13.0 11.0 - 15.0 % Platelet 243 140 - 400 x10(3)/mcL MPV 8.7 7.5 - 11.5 fL BASIC METABOLIC PANEL Result Value Range Sodium 138 135 - 146 mmol/L Potassium 4.2 3.5 - 5.3 mmol/L Chloride 105 98 - 110 mmol/L Total CO2 24 21 - 33 mmol/L Anion Gap 9 7 - 16 mmol/L Calcium 9.4 8.6 - 10.2 mg/dL Glucose Lvl 108 (*) 65 - 99 mg/dL BUN 15 7 - 25 mg/dL Creatinine 0.8 0.5 - 1.2 mg/dL GFR Afr Am >60 GFR Non Afr Am >60 SEDIMENTATION RATE AUTOMATED Result Value Range Sed Rate 5 0 - 20 mm/hr CREATINE KINASE Result Value Range CK 25 0 - 165 IU/L SERUM TEST Result Value Range Test Negative DIFFERENTIAL Result Value Range Neut Percent 83.0 Lymph Percent 13.0 Jasper Percent 3.3 Eos Percent 0.4 Baso Percent 0.3 Neut# 6.14 1.50 - 7.80 x10(3)/mcL Lymph# 0.96 0.85 - 3.90 x10(3)/mcL Jasper# 0.24 0.20 - 0.95 x10(3)/mcL Eos# 0.03 0.01 - 0.50 x10(3)/mcL Baso# 0.02 0.00 - 0.20 x10(3)/mcL ED Course: Appropriate laboratory and radiology studies reviewed Patient is interviewed and examined. She is afebrile and nontoxic in appearance. She complains of leg pain. There is no history or physical exam findings to suggest injury, infection, joint process or vascular emergency. Her CBC, sedimentation rate and CPK are unremarkable. test is negative. I see no apparent reason for the leg pain. Patient will be prescribed Flexeril for muscular discomfort. She can continue taking anti-inflammatories. She can follow up with her primary care provider to further investigate her symptoms as needed. ED Clinical Impression: Bilateral leg pain of unclear etiology Critical Care time Condition at Discharge/Transfer from Department: Stable Bienvenido Leos MD 08/18/12 1661 documented in this encounter Plan of Treatment Not on file documented as of this encounter Procedures Procedure Name Priority Date/Time Associated Diagnosis Comments DIFFERENTIAL STAT 08/18/2012 8:53 PM EDT HCG SERUM QUALITATIVE STAT 08/18/2012 8:53 PM EDT SEDIMENTATION RATE AUTOMATED STAT 08/18/2012 8:53 PM EDT CBC WITH DIFF STAT 08/18/2012 8:53 PM EDT CREATINE KINASE STAT 08/18/2012 8:53 PM EDT BASIC METABOLIC PANEL STAT 08/18/2012 8:53 PM EDT documented in this encounter Results * DIFFERENTIAL (08/18/2012 8:53 PM EDT) [facility] Neut Percent 83.0 % [facility] Lymph Percent 13.0 % [facility] Jasper Percent 3.3 % [facility] Eos Percent 0.4 % [facility] Baso Percent 0.3 % [facility] Neut# 6.14 1.50 - 7.80 x10(3)/[facility] Lymph# 0.96 0.85 - 3.90 x10(3)/[facility] Jasper# 0.24 0.20 - 0.95 x10(3)/[facility] Eos# 0.03 0.01 - 0.50 x10(3)/[facility] Baso# 0.02 0.00 - 0.20 x10(3)/[facility] Blood specimen (specimen) 08/18/2012 8:53 PM EDT 08/18/2012 8:58 PM EDT Bienvenido Leos MD HEMATOLOGY ORDERABLES Final R esult Performing Organization Address City/State/[facility] Co de Phone Number [facility] [address] [place] [address] * SERUM TEST (08/18/2012 8:53 PM EDT) [facility] Test Negative Blood specimen (specimen) 08/18/2012 8:53 PM EDT 08/18/2012 8:58 PM EDT Bienvenido Leos MD CHEMISTRY ORDERABLES Edited R esult - Final * CREATINE KINASE (08/18/2012 8:53 PM EDT) [facility] CK 25 0 - 165 IU/L Blood specimen (specimen) UPPER LIMB STRUCTURE / Unknown 08/18/2012 8:53 PM EDT 08/18/2012 8:58 PM EDT us Bienvenido Leos MD CHEMISTRY ORDERABLES Final Re sult * SEDIMENTATION RATE AUTOMATED (08/18/2012 8:53 PM EDT) [facility] Sed Rate 5 0 - 20 mm/hr Blood specimen (specimen) UPPER LIMB STRUCTURE / Unknown 08/18/2012 8:53 PM EDT 08/18/2012 8:58 PM EDT us Bienvenido Leos MD HEMATOLOGY ORDERABLES Final R esult * (ABNORMAL) BASIC METABOLIC PANEL (08/18/2012 8:53 PM EDT) Sodium 138 135 - 146 mmol/L Potassium 4.2 3.5 - 5.3 mmol/L Chloride 105 98 - 110 mmol/L Total CO2 24 21 - 33 mmol/L Anion Gap 9 7 - 16 mmol/L Calcium 9.4 8.6 - 10.2 mg/dL Glucose Lvl 108(H) 65 - 99 mg/dL BUN 15 7 - 25 mg/dL Creatinine 0.8 0.5 - 1.2 mg/dL GFR Afr Am >60 Comment: GFR is estimated using creatinine, age, [...] or less GFR Non Afr Am >60 Blood specimen (specimen) UPPER LIMB STRUCTURE / Unknown 08/18/2012 8:53 PM EDT 08/18/2012 8:58 PM EDT Bienvenido Leos MD CHEMISTRY ORDERABLES Edited R esult - Final * CBC WITH AUTO DIFF (08/18/2012 8:53 PM EDT) WBC 7.4 3.8 - 10.8 x10(3)/mcL RBC 4.43 3.80 - 5.10 x10(6)/mcL Hgb 14.3 11.7 - 15.5 gm/dL Hct 41.6 35.0 - 45.0 % MCV 93.7 80.0 - 100.0 fL MCH 32.2 27.0 - 33.0 pg MCHC 34.3 32.0 - 36.0 gm/dL RDW 13.0 11.0 - 15.0 % Platelet 243 140 - 400 x10(3)/mcL MPV 8.7 7.5 - 11.5 fL Blood specimen (specimen) UPPER LIMB STRUCTURE / Unknown 08/18/2012 8:53 PM EDT 08/18/2012 8:58 PM EDT Bienvenido Leos MD HEMATOLOGY ORDERABLES Final R esult documented in this encounter Visit Diagnoses Diagnosis Bilateral leg pain- Primary Pain in limb documented in this encounter Care Teams Health Practice Manager Relationship Specialty Start Date End Date Nehemias Barron MD [address] [place] [address] PCP - General 12/01/10 documented as of this encounter
--- OUTSIDE RECORDS SUMMARY | 2024-03-07 05:10 | XMS_ITS | Encounter Summary ---
Author Organization [place] [address] Care Team Providers Care Equipment Sales Specialist Name Role Phone Nehemias Barron MD Primary Care Provider [phone] Encounter Details Date Type Department Care Team (Latest Contact Info) Description 02/18/2013 8:02 PM EST - 02/18/2013 11:59 PM EST Hospital Encounter EDG LAB IVORY PROCESSING [facility] [place] [address] Pap smear, as part of [...] Notes * Miscellaneous - Unknown, Unknown - 02/19/2013 8:08 PM EST documented in this encounter Plan of Treatment Pending Results Name Type Priority Associated Diagnoses Date /Time CHLAMYDIA/GC PROBE GENITAL SWAB Microbiology Routine Pap smear, as part of routine gynecological examination 02/20/2013 9:59 AM EST documented as of this encounter Procedures Procedure Name Priority Date/Time Associated Diagnosis Comments .CHL/GC GENITAL RESULTS Routine 02/19/2013 4:27 PM EST documented in this encounter Results * .CHL/GC GENITAL RESULTS (02/19/2013 4:27 PM EST) C. trachomatis/N. gonorrhoeae Specimen Genital [facility] Comment: Test methodology is amplified DNA probe using [employer] ??A negative result does not rule out the presence of DNA in concentrations below the level of detection of the assay. The performance characteristics of this test were validated by [facility]. ??This laboratory is authorized under [...] for medical purposes only. Chlamydia trachomatis Negative [facility] Neisseria gonorrhoeae Negative [facility] Genital 02/19/2013 4:27 PM EST 02/19/2013 8:26 PM EST us Bella Richmond MD MICROBIOLOGY - GENERAL ORD ERABLES Edited Result - Final [facility] [address] [place] [address] documented in this encounter Visit Diagnoses Diagnosis Pap smear, as part of routine gynecological examination Screening for malignant neoplasm of the cervix documented in this encounter Care Teams Equipment Sales Specialist Relationship Specialty Start Date End Date Nehemias Barron MD [address] [place] [address] PCP - General 12/01/10 documented as of this encounter
--- OUTSIDE RECORDS SUMMARY | 2024-03-07 05:10 | XMS_ITS | Encounter Summary ---
Author Organization [place] [address] Care Team Providers Care Publications Distribution Clerk Name Role Phone Nehemias Barron MD Primary Care Provider [phone] Reason for Visit * Reason Comments Results Encounter Details Date Type Department Care Team (Late st Contact Info) Description 12/23/2010 4:10 PM EDT Office Visit [facility] [address] [facility] [place] [address] Bella Richmond MD [address] [place] [address] Chlamydia (Primary Dx) Social History Tobacco Use Types [...] Reading Time Taken Comments Blood Pressure 112/64 12/23/2010 4:02 PM EDT Pulse 76 12/23/2010 4:02 PM EDT Temperature 37.1 ??C (98.8 ??F) 12/23/2010 4:02 PM ED T Respiratory Rate - - Oxygen Saturation - - Inhaled Oxygen Concentration - - Weight 62.1 kg (137 lb) 12/23/2010 4:02 PM EDT Height - - Body Mass Index 22.8 12/01/2010 3:41 PM EDT Body Mass Index Percentile 65.68% 12/23/2010 4:0 2 PM EDT Growth Chart: [facility] (Girls, 2- 20 Years) documented in this encounter Ordered Prescriptions Prescription Sig Dispense Quantity Refills Last Filled Start Date End Date azithromycin (ZITHROMAX) 250 mg tabletIndications:C elaine Take 4 Tabs by mouth once for 1 dose. 4 Tab 0 12/23/2010 12/23/2010 documented in this encounter Progress Notes * Bella Richmond MD - 12/23/2010 4:11 PM EDT Subjective: Patient ID: BONNY OLIVARES is a 20 y.o. female. HPI In er had positive chlamydia test Currently 2 months 12 days. Will be seeing ob in [place] Patient's medications, allergies, past medical, surgical, social and family histories were reviewedand updated as appropriate. Review of Systems Genitourinary: Positive for vaginal discharge. Objective: Filed Vitals: 12/23/2010 4:02 PM BP: 112/64 Pulse: 76 Temp: 98.8 ??F (37.1 ??C) TempSrc: Forehead Weight: 137 lb (62.143 kg) There is no height on file to calculate BMI. Physical Exam Nursing note and vitals reviewed. Constitutional: She appears well-developed and well-nourished. HENT: Head: Normocephalic. Cardiovascular: Normal rate and regular rhythm. Pulmonary/Chest: Effort normal and breath sounds normal. Assessment and Plan: Bonny was seen today for results. Diagnoses and associated orders for this visit: - Chlamydia - Azithromycin 250 mg tab -- Take 4 Tabs by mouth once for 1 dose. documented in this encounter Plan of Treatment Not on file documented as of this encounter Visit Diagnoses Diagnosis Chlamydia- Primary Other specified chlamydial infection, in conditions classified elsewhere and of unspecified site documented in this encounter Care Teams Publications Distribution Clerk Relationship Specialty Start Date End Date Nehemias Barron MD [address] [place] [address] PCP - General 12/01/10 documented as of this encounter
--- OUTSIDE RECORDS SUMMARY | 2024-03-07 05:10 | XMS_ITS | Encounter Summary ---
Author Organization [place] [address] Care Team Providers Care Copy Lathe Operator Name Role Phone Nehemias Barron MD Primary Care Provider Reason for Visit * Reason Comments Other anxious / like a shaffer ick attack Encounter Details Date Type Department Care Team (Latest Contact Info) Description 06/08/2012 2:20 PM EST Office Visit [facility] [address] [facility] [place] [address] Nehemias Barron MD [address] [place] [address] Panic disorder (Primary Dx); Atopic dermatitis Social History Tobacco Use Types Packs/Day Years [...] Sign Reading Time Taken Comments Blood Pressure 110/72 06/08/2012 1:29 PM EST Pulse 84 06/08/2012 1:29 PM EST Temperature 37.1 ??C (98.8 ??F) 06/08/2012 1:29 PM ES T Respiratory Rate - - Oxygen Saturation - - Inhaled Oxygen Concentration - - Weight 57.6 kg (127 lb) 06/08/2012 1:29 PM EST Height 165.1 cm (5' 5 ) 06/08/2012 1:29 PM EST Body Mass Index 21.13 06/08/2012 1:29 PM EST documented in this encounter Ordered Prescriptions Prescription Sig Dispense Quantity Refills Last Filled Start Date End Date triamcinolone (KENALOG) 0.1 % creamIndications:A topic dermatitis Apply topically 2 times daily for 90 days. 60 g 2 06/08/2012 3 documented in this encounter Progress Notes * Nehemias Barron MD - 06/08/2012 1:47 PM EST Subjective: Patient ID: Bonny Olivares is a 21 y.o. female. HPI Episode, hr, anxious, sob, lasted about 10 minutes and resolved. Had similar episodes as a child, was evaluated bipolar disorder and odd. Last episode was at 15 year old. ++ stress, daughter 1 year old and having health isses Rash forearm Patients past medical, family and social histories were reviewed and updated. There were no changesexcept as noted. Review of Systems All other systems reviewed and are negative. Objective: Filed Vitals: 06/08/12 1329 BP: 110/72 Pulse: 84 Temp: 98.8 ??F (37.1 ??C) TempSrc: Forehead Height: 5' 5 (1.651 m) Weight: 127 lb (57.607 kg) Body mass index is 21.13 kg/(m^2). Physical Exam Constitutional: She is oriented [...] and Plan: Bonny was seen today for other. Diagnoses and associated orders for this visit: Panic disorder Atopic dermatitis - triamcinolone (KENALOG) 0.1 % cream; Apply topically 2 times daily for 90 days. documented in this encounter Plan of Treatment Not on file documented as of this encounter Visit Diagnoses Diagnosis Panic disorder- Primary Panic disorder without agoraphobia Atopic dermatitis Other atopic dermatitis and related conditions documented in this encounter Discontinued Medications Medication Sig Discontinue Reason Start Date End Da te FLUoxetine (PROZAC) 10 mg capsule Take 10 mg by mouth daily. DELETE-Therapy completed 06/08/2012 documented as of this encounter Care Teams Copy Lathe Operator Relationship Specialty Start Date End Date Nehemias Barron MD [address] [place] [id number] PCP - General 12/01/10 documented as of this encounter
--- OUTSIDE RECORDS SUMMARY | 2024-03-07 05:10 | XMS_ITS | Encounter Summary ---
Author Organization [place] [address] Care Team Providers Care Paralegal Assistant Name Role Phone Nehemias Barron MD Primary Care Provider [phone] Reason for Visit * Reason Onset Date Comments Visit Follow Up 01/04/2014 ED f/u call Encounter Details Date Type Department Care Team (Late st Contact Info) Description 01/04/2014 [facility]phone [facility] [address] [facility] [place] [address] Kristi Ewing RN Visit Follow [...] Telephone Encounter - Kristi Ewing RN - 01/04/2014 9:45 AM EDT Pt was seen in ED 01/03 for early . Pt states, I'm doing much better today thank you. Pt denies any pain or N/V at this time. Pt states she will make an appointment with OBGYN today. Reviewed pt discharge instructions and medications with pt, pt verbalizes understanding. Denies any questions or concerns at this time. Left contact information with pt. documented in this encounter Plan of Treatment Not on file documented as of this encounter Visit Diagnoses Not on filedocumented in this encounter Care Teams Paralegal Assistant Relationship Specialty Start Date End Date Nehemias Barron MD [address] [place] [address] PCP - General 12/01/10 documented as of this encounter
--- OUTSIDE RECORDS SUMMARY | 2024-03-07 05:10 | XMS_ITS | Encounter Summary ---
Author Organization [facility] [place] [address] Care Team Providers Care Safety Instruction Police Officer Name Role Phone Nehemias Barron MD Primary Care Provider [phone] Reason for Visit * Reason Comments Pelvic Pain [id number] re ports she went to PCP last week and found out she was - states 2 days ago she spotted a little/stopped/and then pain along bilateral lower sides of abdomen came which has moved to the suprapubic area - thinks she is approximately 5 weeks gestation Encounter Details Date Type Department Care Team (Late st Contact Info) Description 12/01/2010 3:29 PM EDT - 12/01/2010 5:33 PM EDT [facility] [address] [place] [address] Erik Solares MD [address] [place] [id number] Infections of genitourinary tract antepartum; Urinary tract infection, site not specified; Abdominal pain, other specified site Discharge Disposition: Home or Self Care Social [...] Sign Reading Time Taken Comments Blood Pressure 103/63 12/01/2010 5:30 PM EDT Pulse 103 12/01/2010 3:41 PM EDT Temperature 36.7 ??C (98.1 ??F) 12/01/2010 3:41 PM ED T Respiratory Rate 18 12/01/2010 5:30 PM EDT Oxygen Saturation 100% 12/01/2010 5:30 PM EDT Inhaled Oxygen Concentration - - Weight 61.7 kg (136 lb) 12/01/2010 3:41 PM EDT Height 165.1 cm (5' 5 ) 12/01/2010 3:41 PM EDT Body Mass Index 22.63 12/01/2010 3:41 PM EDT Body Mass Index Percentile 64.24% 12/01/2010 3:4 1 PM EDT Growth Chart: [facility] (Girls, 2- 20 Years) documented in this encounter Discharge Instructions * Discharge Instructions* Tori Hernandez RN - 12/01/2010 5:31 PM EDT * Attachments The following attachments cannot be sent through Care Everywhere. * (TONGAN) * URINARY TRACT INFECTION, CARE OF, [id number] (TONGAN) documented in this encounter Medications at Time of Discharge nitrofurantoin, macrocrystal-mono hydrate, (MACROBID) 100 mg capsule Take 1 Cap by mouth 2 times daily for 20 doses. 20 Cap 0 12/01/2010 12/11/2010 documented as of this encounter Ordered Prescriptions Prescription Sig Dispense Quantity Refills Last Filled Start Date End Date acetaminophen (TYLENOL) 325 mg tablet Take by mouth every 4 hours as needed for Pain. Take as directed 30 Tab 1 12/01/2010 2 nitrofurantoin, macrocrystal-monoh ydrate, (MACROBID) 100 mg capsule Take 1 Cap by mouth 2 times daily for 20 doses. 20 Cap 0 12/01/2010 1 documented in this encounter Discharge Disposition Disposition Code Departure Means Destination Home or Self Care documented in this encounter Progress Notes * Unknown, Unknown - 12/01/2010 4:17 PM EDT * Unknown, Unknown - 12/01/2010 4:17 PM EDT documented in this encounter Procedure Notes * Unknown, Unknown - 12/02/2010 9:17 AM EDTAssociated Order(s): SCANNED LABS documented in this encounter Nursing Notes * Unknown, Unknown - 12/02/2010 9:16 AM EDT documented in this encounter ED Notes * Carmen Neumann RN - 12/03/2010 6:49 AM EDT Lab results reviewed faxed copy to pt's PCP dr. Barron. * Pippa Bustamante APRN - 12/01/2010 3:53 PM EDT Chief Complaint Patient presents with ??? Pelvic Pain [id number] reports she went to PCP last week and found out she was - states 2 days ago she spotted a little/stopped/and then pain along bilateral lower sides of abdomen came which has moved to the suprapubic area - thinks she is approximately 5 weeks gestation HPI Comments: Patient is a well-nourished well-developed 20-year-old female who presents emergency room with complaint of suprapubic abdominal cramping for the past 2 days. Patient states on Tuesday she spotted a little bit and then that resolved. Patient states she is approximately 5 weeks denies any fevers chills no nausea no vomiting she does not have an OB doctor at this time. The history is provided by the patient. Allergies Allergen Reactions ??? Sulfa (Sulfonamide Antibiotics) Home Medications: Prior to Admission medications Medication Sig Start Date End Date Taking? Authorizing Provider VITS W-CA,FE,FA,<1MG, ( VITAMIN ORAL) Take by mouth. Yes Historical Provider Past Medical History: Past Medical History Diagnosis Date ??? Knee injury Social History: reports that she has quit smoking. She has never used smokeless tobacco. She reports that she currently engages in sexual activity. She reports that she does not currently drink alcohol or use illicit drugs. Family History: History reviewed. No pertinent family history. Surgical History: Past Surgical History Procedure Date ??? Appendectomy Review of Systems Constitutional: Negative for fever and chills. Gastrointestinal: Positive for abdominal pain. Negative for nausea and vomiting. Genitourinary: Negative for flank pain, vaginal bleeding and vaginal discharge. All other systems reviewed and are negative. Blood pressure 111/79, pulse 103, temperature 98.1 ??F (36.7 ??C), temperature source Oral, resp. rate 20, height 5' 5 (1.651 m), weight 136 lb (61.689 kg), last menstrual period OB (07/31/11), SpO2 98%. Physical Exam Constitutional: She is oriented. She appears well-developed and well-nourished. Eyes: Conjunctivae and extraocular motions are normal. Pupils are equal, round, and reactive to light. Pulmonary/Chest: Effort normal and breath sounds normal. She has no wheezes. Abdominal: Soft. Bowel sounds are normal. Tenderness is present in the suprapubic area. She has no rebound and no guarding. Genitourinary: Rectum normal. Pelvic exam was performed with patient in the knee-chest position. There is tenderness around the vagina. Discharge found. Speculum exam revealed os closed small amount of yellow creamy discharge in the vaginal vault no blood noted in the vaginal vault. Bimanual exam reveals cervical motion tenderness Suprapubic area on exam Neurological: She is alert and oriented. Coordination normal. Skin: Skin is warm and dry. Psychiatric: She has a normal mood and affect. Procedures Radiology/EKG/Labs: Labs Reviewed POCT URINALYSIS DIPSTICK - Abnormal; Notable for the following: POCT URINE - Abnormal; Notable for the following: BETA HUMAN CHORIONIC GONADOTROPIN QUANTITATIVE - Abnormal; Notable for the following: ??? Beta hCG Quant [id number] (*) All other components within normal limits URINALYSIS - Abnormal; Notable for the following: ??? UA Appear Slightly Cloudy (*) ??? UA Protein 100 (2+) (*) ??? UA Leuk Est Small (*) All other components within normal limits TRICHOMONAS AG CHLAMYDIA/GC PROBE GENITAL URINE CULTURE .CHL/GC GENITAL RESULTS Per radiologist ultrasound shows a 6 week IUP ED Course: Appropriate laboratory and radiology studies reviewed Discussed treatment plan with patient including vitamins antibiotics for urinary tract infection drink a lot of fluids and following up with her [facility] doctor. I treated/staffed this patient with Dr. solares. ED Clinical Impression: Encounter Diagnoses Code Name Primary? Qualifier ??? V22.2C ??? 646.60R UTI in Critical Care time Condition at Discharge/Transfer from Department: Improved Pippa Bustamante, LEV 12/01/10 1724 Pippa Bustamante APRN 12/01/10 1724 Cosigned by Erik Solares MD at 12/01/2010 7:13 PM EDT documented in this encounter Plan of Treatment Pending Results Name Type Priority Associated Diagnoses Date /Time CHLAMYDIA/GC PROBE GENITAL Microbiology STAT 12/03/2010 6:18 AM EDT documented as of this encounter Procedures Procedure Name Priority Date/Time Associated Diagnosis Comments CHLAMYDIA/GC PROBE GENITAL SWAB STAT 12/03/2010 6:18 AM EDT SCANNED LABS 12/02/2010 12:00 AM EDT US OB TRANSVAGINAL STAT 12/01/2010 5: 08 PM EDT HUMAN CHORIONIC GONADOTROPIN QUANTITATIVE STAT 12/01/2010 4:40 PM EDT .CHL/GC GENITAL RESULTS STAT 12/01/2010 4:32 PM EDT TRICHOMONAS AG Routine 12/01/2010 4:32 PM EDT URINALYSIS STAT 12/01/2010 4:23 PM EDT URINE CULTURE (NO STAIN) STAT 12/01/2010 4:23 PM EDT POCT URINE STAT 12/01/2010 4:05 PM EDT POCT URINALYSIS DIPSTICK STAT 12/01/2010 4:05 PM EDT documented in this encounter Results * SCANNED LABS (12/02/2010 12:00 AM EDT) Narrative 12/02/2010 9:17 AM EDT Ordered by an unspecified provider. Transcriptions Unknown, Unknown - 12/02/2010 9:17 AM EDT us Unknown Unknown HEMATOLOGY ORDERABLES Final Resu lt * US OB TRANSVAGINAL (12/01/2010 5:08 PM EDT) Anatomical Region Laterality Modality Ultrasound 12/01/2010 4:03 PM EDT Impressions 12/01/2010 5:15 PM EDT IMPRESSION: 1. Intrauterine viable gestation, estimated gestational age 6 weeks 4 days. 2. Right corpus luteum cyst. Narrative 12/01/2010 5:15 PM EDT Ultrasound of the pelvis, transvaginal first trimester OB, 12/01/2010. INDICATIONS: Pain, vaginal bleeding, positive test. Transvaginal imaging shows a viable intrauterine gestation with a crown-rump length the of 6.9 mm, with mean sac diameter of 2.4 cm, and the yolk sac of 4.6 mm with cardiac activity measured at 114 beats per minute. The estimated gestational age is 6 weeks 4 days. The right ovary measures 4.3 x 2.5 x 2.9 cm with a corpus luteum cyst and the adjacent adnexal fluid, simple. The left ovary measures 2.4 x 1.6 x 1.3 cm, unremarkable in appearance. Procedure Note Sergei Mcdonald MD - 12/01/2010 Ultrasound of the pelvis, transvaginal first trimester OB, 12/01/2010. INDICATIONS: Pain, vaginal bleeding, positive test. Transvaginal imaging shows a viable intrauterine gestation with acrown-rump length the of 6.9 mm, with mean sac diameter of 2.4 cm, and the yolk sac of 4.6 mm withcardiac activity measured at 114 beats per minute. The estimated gestational age is 6 weeks 4days. The right ovary measures 4.3 x 2.5 x 2.9 cm with a corpus luteum cyst andthe adjacent adnexal fluid, simple. The left ovary measures 2.4 x 1.6 x 1.3 cm, unremarkable inappearance. IMPRESSION: 1. Intrauterine viable gestation, estimated gestational age 6 weeks 4days. 2. Right corpus luteum cyst. us Erik Solares MD IMG US ORDERABLES Final Resul t * (ABNORMAL) BETA HUMAN CHORIONIC GONADOTROPIN QUANTITATIVE (12/01/2010 4:40 PM EDT) hCG Quant 99393(H) 0 - 5 mIU/mL [facility] Blood specimen (specimen) UPPER LIMB STRUCTURE / Unknown 12/01/2010 4:40 PM EDT 12/01/2010 4:40 PM EDT us Erik Solares MD CHEMISTRY ORDERABLES Final Re sult Performing Organization Address [facility] de Phone Number [facility] [address] [place] [address] * (ABNORMAL) .CHL/GC GENITAL RESULTS (12/01/2010 4:32 PM EDT) C. trachomatis/N. gonorrhoeae Specimen Genital [facility] Comment: Test methodology is amplified DNA probe using [employer] ??A negative result does not rule out the presence of DNA in concentrations below the level of detection of the assay. The performance characteristics of this test were validated by [facility]. ??This laboratory is authorized under the Clinical Laboratory Improvement Amendments (CLIA) as qualified to perform high-complexity testing. ??Compliance statement is available in the Laboratory. Chlamydia trachomatis Positive(A) [facility] Neisseria gonorrhoeae Negative [facility] Genital 12/01/2010 4:32 PM EDT 12/01/2010 8:20 PM EDT Erik Solares MD MICROBIOLOGY - GENERAL ORDERA BLES Edited Performing Organization Address [facility]/ZIP Co de Phone Number [facility] [address] [place] [address] * TRICHOMONAS AG (12/01/2010 4:32 PM EDT) Trichomonas Ag Negative [facility] Vaginal 12/01/2010 4:32 PM EDT 12/01/2010 4:32 PM EDT Erik Solares MD MICROBIOLOGY - GENERAL ORDERA BLES Final Result Performing Organization Address [facility]/ZIP Co de Phone Number [facility] [address] [place] [address] * URINE CULTURE (12/01/2010 4:23 PM EDT) Final Three or more bacterial species isolated from urine indicating superficial or fecal contamination Recollect if clinically indicated [facility] Urine, Clean Catch URINE SPECIMEN COLLECTION, CLEAN CATCH / Unknown 12/01/2010 4:23 PM EDT 12/01/2010 8:40 PM EDT Erik Solares MD MICROBIOLOGY - GENERAL ORDERA BLES Final Result Performing Organization Address [facility] Co de Phone Number [facility] [address] [place] [address] * (ABNORMAL) URINALYSIS (12/01/2010 4:23 PM EDT) Pathologist [facility] UA Color Yellow [facility] UA Appear Slightly Cloudy(A) [facility] UA Glucose Negative Negative [facility] UA Bili Negative Negative [facility] UA Ketones Negative Negative [facility] UA Blood Negative Negative [facility] UA pH 6.0 4.8 - 8.0 [facility] UA Protein 100 (2+)(A) Negative mg/dL [facility] UA Urobilinogen 0.2 mg/dl [facility] UA Nitrite Negative Negative [facility] UA Leuk Est Small(A) Negative [facility] UA Spec Grav >1.030 1.001 - 1.035 [facility] UA WBC 15-20 /HPF [facility] UA Bacteria 3+ [facility] Urine specimen (specimen) 12/01/2010 4:23 PM EDT 12/01/2010 4:23 PM EDT us Erik Solares MD URINE ORDERABLES Final Result [facility] [address] [place] [address] * (ABNORMAL) POCT URINE (12/01/2010 4:05 PM EDT) Preg Test, Ur positive Pos/Neg Lot Number Expiration Date SeriAl # Control Line yes Yes/No 12/01/2010 4:05 PM EDT us Erik Solares MD POINT OF CARE TEST ORDERABLES Final Result * (ABNORMAL) POCT URINALYSIS DIPSTICK (12/01/2010 4:05 PM EDT) Color, UA Clear, Yellow, [place], Rust Clarity, UA Clear, Cloudy Glucose, UA neg g/dl% Bilirubin, UA neg Pos/Neg Ketones, UA neg Pos/Neg Spec Grav, UA 1.030 1.020 - 1.030 g/dl Blood, UA neg Pos/Neg pH, UA 6.0 5.0 - 6.5 Protein, UA 100 Pos/Neg Urobilinogen, UA 0.2 0.2 - 1.0 mg/dL Leukocytes, UA smal Pos/Neg Nitrite, UA neg Pos/Neg Appear BF Clear, Slightly Cloudy Clear, Cloudy Lot Number Expiration Date SeriAl # Urine specimen (specimen) 12/01/2010 4:05 PM EDT us Erik Solares MD POINT OF CARE TEST ORDERABLES Final Result documented in this encounter Visit Diagnoses Diagnosis Infections of genitourinary tract antepartum Urinary tract infection, site not specified Abdominal pain, other specified site documented in this encounter Discontinued Medications Medication Sig Discontinue Reason Start Date End Da te ibuprofen (ADVIL;MOTRIN) 800 mg Take 1 Tab by mouth 3 times daily. 01/26/2010 12/01/2010 levonorgestrel-ethiny l estradiol (AVIANE;ALESSE;LESSIN A) 0.1-20 mg-mcg per tabletIndications:Dental Surgery Doctor exam Take 1 Tab by mouth daily. 02/05/2010 12/01/2010 malathion (OVIDE) 0.5 %Indications:Head lice Apply topically See Admin Instructions for 30 days. See admin instructions. 11/20/2010 12/01/2010 JJ13-ishy cb&asp f-AQ-ndj-fish 40-10-1-300 mg CapIndications:Pregna ncy Take 1 Cap by mouth daily. 11/20/2010 12/01/2010 documented as of this encounter Historical Medications * This list may reflect changes made after this encounter. VITS W-CA,FE,FA,<1MG, ( VITAMIN ORAL) Take by mouth. 09/22/2011 added in this encounter Care Teams Safety Instruction Police Officer Relationship Specialty Start Date End Date Nehemias Barron MD [address] [place] [address] PCP - General 12/01/10 documented as of this encounter
--- OUTSIDE RECORDS SUMMARY | 2024-03-07 05:10 | XMS_ITS | Encounter Summary ---
Author Organization [place] [address] Care Team Providers Care Strap Stitcher Name Role Phone Nehemias Barron MD Primary Care Provider [phone] Reason for Visit * Reason Comments Vaginal Bleeding Encounter Details Date Type Department Care Team (Late st Contact Info) Description 02/19/2013 3:30 PM EST [facility] [address] [facility] [place] [address] Bella Richmond MD [address] [place] [address] Pap smear, as part of routine gynecological examination (Primary Dx); Urinary frequency; Amenorrhea Social History Tobacco Use Types Packs/Day Years Used Date Smoking Tobacco: Every Day Cigarettes Smokeless Tobacco: Never Tobacco Cessation:Ready to Q uit: Yes; Counseling Given: Yes Alcohol Use Standard Drinks/Week Comments [...] Sign Reading Time Taken Comments Blood Pressure 110/70 02/19/2013 3:42 PM EST Pulse 72 02/19/2013 3:42 PM EST Temperature 36.7 ??C (98.1 ??F) 02/19/2013 3:42 PM ES T Respiratory Rate - - Oxygen Saturation - - Inhaled Oxygen Concentration - - Weight 62.5 kg (137 lb 12.8 oz) 02/19/2013 3:42 PM EST Height - - Body Mass Index 22.93 08/18/2012 7:54 PM EDT documented in this encounter Progress Notes * Unknown, Unknown - 05/04/2013 12:00 AM EST * Unknown, Unknown - 03/06/2013 12:00 AM EST * Bella Richmond MD - 02/19/2013 4:01 PM EST Subjective: Patient ID: Bonyn Olivares is a 22 y.o. female. Chief Complaint Patient presents with ??? Vaginal Bleeding HPI or Tuesday went to bathroom had clumps of blood. Just got off depoprovera recently. Sexually active, does not want control having some cramps. Has history of irregular periods Been bleeding since Dark and brown. Urinating a lot Last pap thinks was January or February had mirena taken out Patients past medical, family and social histories were reviewed and updated. There were no changesexcept as noted. Review of Systems Genitourinary: Negative for menstrual problem. Objective: Filed Vitals: 02/19/13 1542 BP: 110/70 Pulse: 72 Temp: 98.1 ??F (36.7 ??C) TempSrc: Forehead Weight: 137 lb 12.8 oz (62.506 kg) Body mass index is 22.93 kg/(m^2). Physical Exam Nursing note and vitals reviewed. Constitutional: She appears well-developed and well-nourished. HENT: Head: Normocephalic. Eyes: Pupils are equal, round, and reactive to light. Neck: No thyromegaly present. Cardiovascular: Normal rate and regular rhythm. Pulmonary/Chest: Effort normal and breath sounds normal. Right breast exhibits no inverted nipple, no mass, no nipple discharge, no skin change and no tenderness. Left breast exhibits no inverted nipple, no mass, no nipple discharge, no skin change and no tenderness. Abdominal: Soft. Bowel sounds are normal. There is no tenderness. Genitourinary: Vagina normal and uterus normal. Cervix exhibits no friability. Right adnexum displays no mass, no tenderness and no fullness. Left adnexum displays no mass, no tenderness and no fullness. Skin: No rash noted. Psychiatric: She has a normal mood and affect. Assessment and Plan: There are no diagnoses linked to this encounter. No Follow-up on file. documented in this encounter Plan of Treatment Pending Results Name Type Priority Associated Diagnoses Date /Time CHLAMYDIA/GC PROBE GENITAL SWAB Microbiology Routine Pap smear, as part of routine gynecological examination 02/20/2013 9:59 AM EST Scheduled Orders Name Type Priority Associated Diagnoses Orde r Schedule CHLAMYDIA/GC PROBE GENITAL SWAB Microbiology Routine Pap smear, as part of routine gynecological examination 1 Occurrences starting 02/19/2013 until 08/19/2013 documented as of this encounter Procedures Procedure Name Priority Date/Time Associated Diagnosis Comments POCT URINE Routine 02/19/2013 4:10 PM EST Amenorrhea POCT URINALYSIS DIPSTICK Routine 02/19/2013 4:08 PM EST Urinary frequency documented in this encounter Results * POCT URINE (02/19/2013 4:10 PM EST) Preg Test, Ur neg Pos/Neg [facility] Comment:neg Lot Number SEP OFFICE Expiration Date SEP OFFICE SeriAl # SEP OFFICE Control Line Yes/No SEP OFFICE 02/19/2013 4:10 PM EST us Bella Richmond MD POINT OF CARE TEST ORDERAB LES Final Result SEP [facility] * (ABNORMAL) POCT URINALYSIS DIPSTICK (02/19/2013 4:08 PM EST) Color, UA yellow Clear, Yellow, [place], Rust [facility] Clarity, UA clear Clear, Cloudy [facility] Glucose, UA neg g/dl% SEP [facility] Bilirubin, UA neg Pos/Neg SEP [facility] Ketones, UA neg Pos/Neg SEP architecture instructor Grav, UA 1,030(A) 1.001 - 1.035 g/dl [facility] Blood, UA 10 Pos/Neg [facility] pH, UA 6.0 5.0 - 8 [facility] Protein, UA 15 Pos/Neg SEP [facility] Urobilinogen, UA 0.2 0.2 - 1.0 mg/dL SEP [facility] Leukocytes, UA neg Pos/Neg [facility] Nitrite, UA neg Pos/Neg [facility]P [facility] UA Appear POC [facility]P [facility] Lot Number [id number] SEP OFFICE Expiration Date 05/2014 SEP OFFICE SeriAl # SEP OFFICE Urine specimen (specimen) 02/19/2013 4:08 PM EST us Bella Richmond MD POINT OF CARE TEST ORDERAB LES Final Result SEP [facility] documented in this encounter Visit Diagnoses Diagnosis Pap smear, as part of routine gynecological examination- Primary Screening for malignant neoplasm of the cervix Urinary frequency Amenorrhea Absence of menstruation documented in this encounter Discontinued Medications Medication Sig Discontinue Reason Start Date End Da te predniSONE (DELTASONE) 10 mg tabletIndications:Psor iasis Take 1 Tab by mouth daily. 6 pills x 3days, 5 pills x 3 days, 4 pills x 3 days, 3 pills x 3 days, 2 pills x 3 days, 1 pills x 3 days DELETE-Therapy completed 08/09/2012 02/19/2013 MEDROXYPROGESTERONE ACETATE (DEPO-PROVERA IM) Inject into the muscle. DELETE-Therapy completed 02/19/2013 documented as of this encounter Orders Lab Orders Without Results Count Last Ordered D ate First Ordered Date [employer] CYTOLOGY REQUEST (PAP ONLY) 1 3 documented in this encounter Care Teams Strap Stitcher Relationship Specialty Start Date End Date Nehemias Barron MD [address] [place] [address] PCP - General 12/01/10 documented as of this encounter
--- OUTSIDE RECORDS SUMMARY | 2024-03-07 05:10 | XMS_ITS | Encounter Summary ---
Author Organization [place] [address] Care Team Providers Care Equipment Superintendent Name Role Phone Nehemias Barron MD Primary Care Provider [phone] Reason for Visit * Reason Comments Consult abnormal pap high gr brando changes * Consultation (Routine) - Closed Specialty Diagnoses / Procedures Referred By Contac t Referred To Contact Obstetrics & Gynecology / Obstetrics and Gynecology Diagnoses Nonspecific abnormal findings on chromosomal analysis Procedures [id number] 1 VISIT [id number] 5 VISITS Nehemias Barron MD [address] [place] [address] Phone: tel: fax: [facility] [address] [place] [address] [address] [place] [address] Phone: tel: fax: Referral ID Status Reason Start Date Expiration Date Visits Re quested Visits Authorized [id number] Closed 05/03/2013 10/30/2013 6 6 Encounter Details Date Type Department Care Team (Late st Contact Info) Description 05/29/2013 1:00 PM EST Office Visit [facility] [address] [place] [address] Sachin Castellanos MD [address] [facility] [address] [place] [address] Severe dysplasia of cervix (MATT III) (Primary Dx); Oligomenorrhea Social History Tobacco Use Types Packs/Day Years [...] Reading Time Taken Comments Blood Pressure 110/70 05/29/2013 1:38 PM EST Pulse - - Temperature - - Respiratory Rate - - Oxygen Saturation - - Inhaled Oxygen Concentration - - Weight 63 kg (139 lb) 05/29/2013 1:38 PM EST Height 165.1 cm (5' 5 ) 05/29/2013 1:38 PM EST Body Mass Index 23.13 05/29/2013 1:38 PM EST documented in this encounter Progress Notes * Sachin Castellanos MD - 05/29/2013 2:08 PM EST COLPOSCOPY Pap Smear:EPITHELIAL CELL ABNORMALITIES High Grade Squamous Intraepithelial Lesion (Encompassing MATT 2 and MATT 3 Pt has MATT 3 for last 2 yrs. L C B 4 yrs old. 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 Discussed. Pt agrees. documented in this encounter Miscellaneous Notes * Patient Instructions - Davida Altamirano MA - 05/29/2013 1:40 PM EST You may be contacted by [...] office and ask to speak to our box office manager. documented in this encounter Plan of Treatment Scheduled Orders Name Type Priority Associated Diagnoses Orde r Schedule MN COLPOSC,CERVIX W/ADJ VAG,W/BX & CURRETAG MN Charge Routine Severe dysplasia of cervix (MATT III) Ordered: 05/29/2013 PATHOLOGY TISSUE REQUEST Lab Routine Severe dysplasia of cervix (MATT III) 1 Occurrences starting 05/29/2013 until 05/29/2014 documented as of this encounter Visit Diagnoses Diagnosis Severe dysplasia of cervix (MATT III)- Primary Carcinoma in situ of cervix uteri Oligomenorrhea Scanty or infrequent menstruation documented in this encounter Care Teams Equipment Superintendent Relationship Specialty Start Date End Date Nehemias Barron MD [address] [place] [address] PCP - General 12/01/10 documented as of this encounter
--- OUTSIDE RECORDS SUMMARY | 2024-03-07 05:10 | XMS_ITS | Encounter Summary ---
Author Organization [place] [address] Care Team Providers [employer] Truck Driver Name Role Phone Nehemias Barron MD Primary Care Provider [phone] Reason for Referral * Consultation (Routine) - Closed Specialty Diagnoses / Procedures Referred By Eusebia t Referred To Contact Dermatology Diagnoses Psoriasis Procedures [id number] 1 visit [id number] 5 visits Bella Richmond MD [address] [place] [address] Phone: tel: fax: Marcos Diaz MD [address] [place] [address] [place] [address] Phone: tel: fax: Referral ID Status Reason Start Date Expiration Date Visits Re quested Visits Authorized [id number] Closed 08/09/2012 02/05/2013 6 6 Reason for Visit * Reason Comments Eczema Encounter Details Date Type Department Care Team (Late st Contact Info) Description 08/09/2012 7:30 AM EDT Office Visit [facility] [address] [place] [address] Bella Richmond MD [address] [place] [address] Psoriasis (Primary Dx) Social History Tobacco Use Types Packs/Day Years Used Date Smoking Tobacco: Every Day Cigarettes Smokeless Tobacco: Never Tobacco Cessation:Ready to Q uit: No; Counseling Given: Yes Alcohol Use Standard Drinks/Week [...] Reading Time Taken Comments Blood Pressure 100/60 08/09/2012 7:35 AM EDT Pulse 84 08/09/2012 7:35 AM EDT Temperature 37.1 ??C (98.8 ??F) 08/09/2012 7:35 AM ED T Respiratory Rate - - Oxygen Saturation - - Inhaled Oxygen Concentration - - Weight 61.7 kg (136 lb) 08/09/2012 7:35 AM EDT Height 165.1 cm (5' 5 ) 08/09/2012 7:35 AM EDT Body Mass Index 22.63 08/09/2012 7:35 AM EDT documented in this encounter Ordered Prescriptions Prescription Sig Dispense Quantity Refills Last Filled Start Date End Date predniSONE (DELTASONE) 10 mg tabletIndications:P soriasis Take 1 Tab by mouth daily. 6 pills x 3days, 5 pills x 3 days, 4 pills x 3 days, 3 pills x 3 days, 2 pills x 3 days, 1 pills x 3 days 66 Tab 0 08/09/2012 02/19/2013 documented in this encounter Progress Notes * Unknown, Unknown - 08/15/2012 12:00 AM EDT * Bella Richmond MD - 08/09/2012 7:42 AM EDT Subjective: Patient ID: Bonny Olivares is a 22 y.o. female. HPI Been going on since May, steroid cream made it worse, Steroid pills put it in remission Has some on her face on her abdomen Patients past medical, family and social histories were reviewed and updated. There were no changesexcept as noted. Review of Systems Skin: Positive for rash. Objective: Filed Vitals: 08/09/12 0735 BP: 100/60 Pulse: 84 Temp: 98.8 ??F (37.1 ??C) TempSrc: Forehead Height: 5' 5 (1.651 m) Weight: 136 lb (61.689 kg) Body mass index is 22.63 kg/(m^2). Physical Exam Nursing note and vitals reviewed. Constitutional: She appears well-developed and well-nourished. HENT: Head: Normocephalic. Skin: Rash (extensive rash to elbow and arms with redness and plaque buildup) noted. Assessment and Plan: Bonny was seen today for eczema. Diagnoses and associated orders for this visit: Psoriasis - predniSONE (DELTASONE) 10 mg tablet; Take 1 Tab by mouth daily. 6 pills x 3days, 5 pills x 3 days, 4 pills x 3 days, 3 pills x 3 days, 2 pills x 3 days, 1 pills x 3 days - Dermatology Other Orders - MEDROXYPROGESTERONE ACETATE (DEPO-PROVERA IM); Inject into the muscle. documented in this encounter Consult Notes * Unknown, Unknown - 09/20/2012 12:00 AM EDT documented in this encounter Miscellaneous Notes * Patient Instructions - Bella Richmond MD - 08/09/2012 7:49 AM EDT Psoriasis Psoriasis is a common, long lasting (chronic) inflammation of the skin. It affects both men and women equally, of all ages and all races. It most often affects the scalp, elbows, knees and lower back. It appears as a scaly red rash over affected areas. Silvery scales appear in these areas of thickened, inflamed skin. Psoriasis is not contagious. It cannot be passed from person to person. Psoriasis varies from mild to very severe. The cause of psoriasis is unknown. Recent evidence suggests that there is an abnormality in some of the blood cells (white blood cells) that fight infection. This causes the skin to shed its top layer of cells more rapidly. This produces the symptoms of psoriasis. Aggravating factors include damage (trauma) to the skin. This often causes new sores (lesions). Examples are cuts, scrapes, and sunburn. Winter season's dryness and lack of sunlight are also aggravating factors. Psoriasis comes in many forms and in varying intensity. It is diagnosed by physical exam and/or tissue sample (biopsy). ?? The most common form begins with little red bumps that gradually become larger. The bumps begin to form scales that flake off easily. The lower layers of scales stick together. When the these scales are scratched or removed, the underlying skin is tender and bleeds easily. These areas then grow in size. They may be come large. This is often a rash that appears and looks the same on both sides of the body (symmetrical). It often affects the elbows, knees, groin, genitals, arms, legs, scalp, and nails. Affected nails often have pitting, may loosen, thicken and crumble, and are difficult to treat. ?? Inverse psoriasis occurs in the armpits, under breasts, in skin folds, and around the groin, buttocks and genitals. ?? Guttate psoriasis generally occurs in children and young adults following a recent sore throat. It begins with many small, red, scaly spots on the skin. It clears spontaneously in weeks or a few months without treatment. Arthritis associated with psoriasis (psoriatic arthritis) involves less than 10% of patients with psoriasis. The arthritic intensity often matches the skin psoriasis intensity. Things that can make psoriasis worse: ?? Drugs such as lithium, beta-blockers, antimalarial drugs, CHAS-inhibitors, NSAIDS ( ibuprofen, aspirin), terbinafine can worsen psoriasis. It is important to let your caregiver know if you are taking these drugs or get a new prescription of these drugs. ?? Alcohol has also been associated with worsening of psoriasis. Excessive alcohol use should be avoided if you have psoriasis. Drinking large amounts of alcohol can affect: l How well your psoriasis treatment works. l How safe your psoriasis treatment is. ?? Smoking can increase the risk of psoriasis and also increased severity of psoriasis. If you smoke, ask your health care provider for help in quitting. ?? Infections (bacterial and viral) may also worsen psoriasis. TREATMENT OPTIONS The treatment of psoriasis depends on your age, health, and living conditions. Medications such as cortisone creams, lotions, and ointments, coal tars, anthralin, and synthetic vitamin D preparationsare available by prescription. Sunlight and UV light help and may be supplemented with oral medications such as the psoralens. The UV treatment is best received in a professional, supervised setting. ?? Steroid (cortisone) treatments are associated with thinning of the skin, blood vessels that get larger (dilated), loss of skin pigmentation, and easy bruising. It is important to use these steroids as directed by your doctor and only treat the affected areas and not the normal, unaffected skin. Resistance to treatment can develop. People on assisted steroid treatment should wear a medic alertbracelet. Injections may be used in difficult to treat areas. ?? Scalp treatments are available with shampoos, solutions, sprays and oils. Avoid scratching the scalp and picking at the scales.. ?? Anthralin, works well on difficult to treat areas. It stains clothes and skin. It may cause temporary irritation (inflammation). ?? Synthetic vitamin D (calcipotriene) can be used on small areas. It is available by prescription.The forms available in [employer]) stores are of no value. ?? [place] tars are available in various strengths for difficult to treat psoriasis. They have been one of the longest used mainstays of treatment in difficult to treat psoriasis. They are messy to use.Check for the latest choices available. ?? Light therapy (UV therapy) can be carefully and professionally monitored in a rail express clerk's office. Careful sun bathing is helpful for many people. Avoid sunburn as this may make the condition worse. Cataracts, wrinkles, and skin aging are some of the harmful side effects of solar therapy. Psoriasis is a chronic condition of the skin that may sometimes be very difficult to treat. It is necessary for you to follow up with your health caregiver continuously and regularly if you are one of these difficult to treat cases. Usually with persistence, you can get a good amount of relief. Maintain a consistency of care. Do not change caregivers just because you do not see immediate results.Numerous trials may be necessary to find the right combination of treatment for you. Document Released: 03/25/2001 Document Re-Released: 06/24/2009 [facility]?? Patient Information ??2009 [employer]. documented in this encounter Plan of Treatment Scheduled Referrals Name Type Priority Associated Diagnoses Order Schedule AMB REFERRAL TO DERMATOLOGY Outpatient Referral Routine Psoriasis Ordered: 08/09/2012 documented as of this encounter Procedures Procedure Name Priority Date/Time Associated Diagnosis Comments SCANNED PATHOLOGY REPORT 09/22/2012 3:44 PM EDT documented in this encounter Results * SCANNED PATHOLOGY REPORT (09/22/2012 3:44 PM EDT) 09/22/2012 3:44 PM EDT us Unknown Unknown PATHOLOGY ORDERABLES Final Resul t documented in this encounter Visit Diagnoses Diagnosis Psoriasis- Primary Other psoriasis documented in this encounter Historical Medications * This list may reflect changes made after this encounter. MEDROXYPROGESTERO NE ACETATE (DEPO-PROVERA IM) Inject into the muscle. 02/19/2013 added in this encounter Care Teams [employer] Truck Driver Relationship Specialty Start Date End Date Nehemias Barron MD [address] [place] [address] PCP - General 12/01/10 documented as of this encounter
--- OUTSIDE RECORDS SUMMARY | 2024-03-07 05:10 | XMS_ITS | Encounter Summary ---
Author Organization [place] [address] Care Team Providers Care Ip Network Architect Name Role Phone Nehemias Barron MD Primary Care Provider [phone] Reason for Visit * Reason Comments Dizziness Encounter Details Date Type Department Care Team (Latest Contact Info) Description 09/22/2011 1:40 PM EDT Office Visit [facility] [address] [place] [address] Nehemias Barron MD [address] [place] [address] Syncope, vasovagal; Pallor Social History Tobacco Use Types Packs/Day Years [...] Sign Reading Time Taken Comments Blood Pressure 92/70 09/22/2011 2:29 PM EDT Pulse 68 09/22/2011 2:29 PM EDT Temperature 36.9 ??C (98.4 ??F) 09/22/2011 1:56 PM ED T Respiratory Rate - - Oxygen Saturation - - Inhaled Oxygen Concentration - - Weight 59.1 kg (130 lb 6.4 oz) 09/22/2011 1:56 P M EDT Height 165.7 cm (5' 5.25 ) 09/22/2011 1:56 PM ED T Body Mass Index 21.53 09/22/2011 1:56 PM EDT documented in this encounter Progress Notes * Nehemias Barron MD - 09/22/2011 2:08 PM EDT Subjective: Patient ID: Bonny Olivares is a 21 y.o. female. HPI Episodes of lightheadedness, has had syncope. Was seen once in ER w/u negative. Gets lightheaded, vision darkens, gets cold and will pass out. Patients past medical, family and social histories were reviewed and updated. There were no changesexcept as noted. Review of Systems Constitutional: Negative for fatigue and unexpected weight change. Eyes: Negative for visual disturbance. Respiratory: Negative for cough and shortness of breath. Cardiovascular: Negative for chest pain, palpitations and leg swelling. Neurological: Negative for headaches. Objective: Filed Vitals: 09/22/11 1356 09/22/11 1428 09/22/11 1429 BP: 110/80 90/58 92/70 Pulse: 72 67 68 Temp: 98.4 ??F (36.9 ??C) TempSrc: Forehead Height: 5' 5.25 (1.657 m) Weight: 130 lb 6.4 oz (59.149 kg) Body mass index is 21.53 kg/(m^2). Physical Exam Nursing note and vitals [...] She exhibits no distension and no mass. No tenderness. She has no rebound and no guarding. Musculoskeletal: She exhibits no edema. Neurological: She is alert and oriented to person, place, and time. Assessment and Plan: Bonny was seen today for dizziness. Diagnoses and associated orders for this visit: Syncope, vasovagal - CBC with Auto Diff; Future - Venipuncture - POCT EKG Pallor - CBC with Auto Diff; Future - Venipuncture - POCT EKG Other Orders - FLUoxetine (PROZAC) 10 mg capsule; Take 10 mg by mouth daily. - SCANNED EKG Discussed vasovagal syncope, gave info sheet. documented in this encounter Procedure Notes * Unknown, Unknown - 09/22/2011 12:00 AM EDTAssociated Order(s): SCANNED EKG documented in this encounter ED Notes * Unknown, Unknown - 05/01/2012 12:00 AM EST documented in this encounter Miscellaneous Notes * Patient Instructions - Nehemias Barron MD - 09/22/2011 2:40 PM EDT Images from the original note were not included. Thank you for enrolling in [employer]. Please follow the instructions below to securely access your online medical record. [employer] allows you to send messages to your doctor, view your test results, renew your prescriptions, request appointments and more. How Do I Sign Up? 1. In your Internet browser, navigate to [email or web address] or [email or web address] and click on the [employer] link. 2. Click on the Sign Up Now link in the Sign In box. You will see the New Member Sign Up page. 3. Enter your [employer] Access Code exactly as it appears below. You will not need to use this code after you???ve completed the sign-up process. This activation code will 60 days after the dateat the top of this page at which time you must request a new code from your doctors office. [employer] Access Code: [email or web address] Expires: 11/21/2011 1:58 PM 4. Enter your Social Security Number ([id number]) and Date of (mm/dd/yyyy) as indicated and click Submit. You will be taken to the next sign- up page. 5. Create a [employer] ID. This will be your [employer] login ID and cannot be changed, so think of one that is secure and easy to remember. 6. Create a [employer] password. You can change your password at any time. 7. Enter your Password Reset Question and Answer. This can be used at a later time if you forget your password. 8. Enter your e-mail address. You will receive e-mail notification when new information is available in [employer]. 9. Click Sign Up. You can now view your medical record. Additional Information Additional Information If you have questions, call your doctors office to talk to a [employer] staff member. Remember, [employer] is NOT to be used for urgent needs. For medical emergencies, dial 911. Neurocardiogenic Syncope, Pediatric (Fainting) Neurocardiogenic syncope (NCS) is the most common cause of fainting in children. It is not dangerous. It is a response to a sudden and brief loss of consciousness due to decreased blood flow to the brain. It is uncommon before 10-12 years of age. CAUSES NCS is caused by a decrease in the blood pressure and heart rate due to a series of events in the nervous and cardiac systems. This may run in families. Many things can trigger an episode of NCS. Some of these include: ?? Pain. ?? Fear. ?? The sight of blood. ?? Common activities like: l Cough. l Swallowing. l Stretching. l Watching TV. l Going to the bathroom. l Combing the hair. ?? Emotional stress. ?? Prolonged standing (especially in warm environment). Situations that can increase the risk of fainting include: ?? Lack of sleep or rest. ?? Not having eaten for a longtime. ?? Not drinking enough liquids. ?? Recent illness. SYMPTOMS Before the fainting episode, your child may: ?? Feel dizzy or light-headed. ?? Sense that he or she is going to faint. ?? Feel like the room is spinning. ?? Be sick to their stomach (nausea). ?? See spots or slow loss of vision. ?? Hear ringing in the ears. ?? Have a headache. ?? Feel hot and sweaty. ?? Have no warnings at all. During the fainting, your child will fall down and lose consciousness for a few seconds. There may be: ?? Stiffening or twitching of the arms and legs ?? Eyes rolling up After the fainting, your child: ?? Recover within a few seconds. ?? May recall feeling dizzy. ?? May feel tired. Diagnosis The diagnosis of NCS is made based on the story and by doing some tests to rule out other causes for fainting. Testing may include the following: ?? Blood tests. ?? A test of the electrical function of the heart (electrocardiogram [ECG or EKG]). ?? A test used check response to change in position (tilt table test). ?? A test to get a picture of the heart using sound waves (echocardiogram). Treatment Treatment of NCS is usually limited to reassurance and home remedies. Remember that even though these spells are scary to watch, they do not harm the child. If home treatments do not work, your child's caregiver may prescribe medicines to help prevent fainting. HOME CARE INSTRUCTIONS Have your child: ?? Learn the warning signs of NCS. ?? Sit or lie down at the first warning sign of a fainting spell. If sitting, put the head down between the legs. ?? Avoid or sit down in situations that may trigger syncope. Common situations to avoid include: l Hot tubs and saunas. l Prolonged standing still. l Not drinking enough fluids - especially when exercising or in hot weather. ?? Drink plenty of fluids. Avoid caffeine. Let your child have a bottle of water in school. ?? Increase the salt in the diet if recommended by your child's caregiver: l Drink sports drinks. l Add salt to foods at the table. ?? When standing for a long time: l Cross the legs. l Flex and stretch the leg muscles. l Squat. l Move the legs. l Bend over. ?? Avoid stopping suddenly any medicines prescribed for NCS SEEK MEDICAL CARE IF: ?? You have any questions about NCS or its treatment. ?? Fainting spells continue in spite of the treatment. ?? Fainting spells are more frequent. ?? Loss of consciousness lasts more than a few seconds ?? Fainting spells occur: l With exercise. l Right after exercise. l After being startled or suddenly frightened. ?? New symptoms occur with the fainting spells such as: l Shortness of breath. l Chest pain. l Irregular heart beats. ?? Injuries happen from fainting. ?? Twitching or stiffening spells: l Happen without obvious fainting. l Last longer than a few seconds. l Take longer than a few seconds to recover from. SEEK IMMEDIATE MEDICAL CARE IF YOUR CHILD: ?? Is injured or bleeding after a fainting spell. ?? Has prolonged twitching and stiffening spells (more than 5 minutes). ?? One twitching and stiffening spell follows another without a return of consciousness. Document Released: 01/04/2009 Document Re-Released: 01/28/2009 ExitCare?? Patient Information ??2009 [employer]. documented in this encounter Plan of Treatment Not on file documented as of this encounter Procedures Procedure Name Priority Date/Time Associated Diagnosis Comments POCT EKG Routine 09/22/2011 2:28 PM EDT Syncope, vasovagal Pallor SCANNED EKG 09/22/2011 12:00 AM EDT Syncope, vasovagal documented in this encounter Results * POCT EKG (09/22/2011 2:28 PM EDT) 09/22/2011 2:28 PM EDT Impressions SEP OFFICE - 09/22/2011 2:28 PM EDT NSR No ischemia Normal ekg us Nehemias Barron MD POINT OF CARE CARDIOLOGY Kim billings Result SEP OFFICE * (ABNORMAL) CBC WITH AUTO DIFF (09/22/2011 2:27 PM EDT) WBC 2.4(L) 4.0 - 11.0 x10(3)/mcL [facility] RBC 4.14 4.00 - 5.10 x10(6)/mcL [facility] Hgb 13.2 12.0 - 15.7 gm/dL [facility] Hct 38.1 36.0 - 45.9 % [facility] MCV 92.0 80.0 - 95.[address] [facility] MCH 32.0 27.0 - 33.[address] [facility] MCHC 34.7 33.0 - 36.0 gm/dL [facility] RDW 11.7 11.5 - 14.5 % [facility] Platelet 175 150 - 400 x10(3)/mcL [facility] MPV 9.9 7.0 - 12.[address] [facility] Blood specimen (specimen) UPPER LIMB STRUCTURE / Unknown 09/22/2011 2:27 PM EDT 09/22/2011 8:31 PM EDT us Nehemias Barron MD HEMATOLOGY ORDERABLES Final R esult Performing Organization Address City/State/[facility] Co de Phone Number [facility] [address] [place] [address] * SCANNED EKG (09/22/2011 12:00 AM EDT) Anatomical Region Laterality Modality Other Narrative Transcriptions Unknown, Unknown - 09/22/2011 12:00 AM EDT us Unknown Unknown IMG ECG ORDERABLES Final Result documented in this encounter Visit Diagnoses Diagnosis Syncope, vasovagal Syncope and collapse Pallor documented in this encounter Discontinued Medications Medication Sig Discontinue Reason Start Date End Da te VITS W-CA,FE,FA,<1MG, ( VITAMIN ORAL) Take by mouth. DELETE-Therapy completed 09/22/2011 acetaminophen (TYLENOL) 325 mg tablet Take by mouth every 4 hours as needed for Pain. Take as directed DELETE-Therapy completed 12/01/2010 09/22/2011 documented as of this encounter Historical Medications * This list may reflect changes made after this encounter. FLUoxetine (PROZAC) 10 mg capsule Take 10 mg by mouth daily. 06/08/2012 added in this encounter Orders Charge Count Last Ordered Date First Orde red Date WI COLLECTION VENOUS BLOOD,VENIPUNCTURE 1 0 09/22/2011 documented in this encounter Care Teams Ip Network Architect Relationship Specialty Start Date End Date Nehemias Barron MD [address] [place] [address] PCP - General 12/01/10 documented as of this encounter"
--- OUTSIDE RECORDS SUMMARY | 2024-03-07 05:10 | XMS_ITS | Encounter Summary ---
Author Organization [place] [address] Care Team Providers Care Loss Prevention Detective Name Role Phone Nehemias Barron MD Primary Care Provider Reason for Visit * Auth/Cert/Inpt Specialty Diagnoses / Procedures Referred By Contac t Referred To Contact Diagnoses Carcinoma in situ of cervix uteri CANCER CERVIX Procedures LOOP EXCISION PROCEDURE (LEEP) Referral ID Status Reason Start Date Expiration Date Visits Re quested Visits Authorized [id number] 1 1 Encounter Details Date Type Department Care Team (Latest Contact Info) Description 06/27/2013 11:41 AM EDT - 06/27/2013 3:59 PM EDT Hospital Encounter [facility] [address] [place] [address] Sachin Castellanos MD [address] [facility] [address] [place] [address] Discharge Disposition: Home or Self [...] encounter Discharge Instructions * Discharge Instructions* Kelli Booker RN - 06/27/2013 3:36 PM EDT Post [employer]isher procedure instructions . 1. Follow-up with Dr. Castellanos in office ~2 weeks 2. Nothing in vagina x 3 weeks 3. No driving while on pain meds 4. Call office anytime if any concerns, especially fever, severe abdominal or pelvic pain, heavy vaginal bleeding, or foul smelling vaginal discharge [facility] Discharge Instructions - Following Sedation 1. A [...] documented in this encounter H&P Notes * Elly Brown, DO - 06/27/2013 12:30 PM EDT HISTORY [...] cervix (MATT III). For LEEP today. Elly Brown DO documented in this encounter Procedure Notes * Unknown, Unknown - 06/30/2013 10:43 AM EDTAssociated Order(s): SCANNED PRE/POST PROCEDURES * Unknown, Unknown - 06/30/2013 10:43 AM EDTAssociated Order(s): SCANNED ANESTHESIA FORMS * Sachin Castellanos MD - 06/27/2013 2:[address] [facility]/[place], [place] NAME: BONNY OLIVARES [facility]#: [id number] LOCATION/ROOM: [facility] FACILITY: [facility] DICTATOR: Sachin Castellanos OPERATIVE REPORT DATE [...] Sachin Castellanos MD C: 2013 14:08 By: [email or web address] Job ID: [id number] Doc ID: [id number] CC: * Sachin Castellanos MD - 06/27/2013 2:16 PM EDT [facility] OPERATIVE/PROCEDURE NOTE PRE-OP DIAGNOSIS: MATT 3. POST-OP DIAGNOSIS: Same PROCEDURE(S): Cx Leep SURGEON(S): Surgeon(s) and Role: * Sachin Castellanos MD - Primary URBAN REDEVELOPMENT SPECIALIST(S): ANESTHESIA: General SPECIMENS: . ESTIMATED BLOOD LOSS: 10.mL OTHER INFO: DISPOSITION/POST PROC COURSE: PACU. Full op note dictated.#[id number] Sachin Castellanos MD Date: 11/11/2011 documented in [...] cervix uteri Special Needs DATA PER W/ZT 51209 MIRANDA DF3-6 POCT URINE Routine 06/27/2013 12:40 [...] PM EDT) Surgical Pathology Report ? PATIENT NAME:BONNY OLIVARES ?Surgical Pathology Report ? Accession Number ?Collected Date/Time ? Received Date/Time ? [id number] ? 06/27/13 14:40 EDT ?06/28/13 11:34 EDT [...] submitted in two cassettes. /BC ? Part 2) Received in formalin labeled [...] and the findings corroborate the ? diagnosis. [facility] 06/27/2013 2:40 PM EDT us Sachin Castellanos MD PATHOLOGY ORDERABLES Final Resul t Performing Organization Address City/[facility]/ZIP Co de Phone Number [facility] [address] [place] [address] * POCT URINE (06/27/2013 12:40 PM EDT) Preg Test, Ur negative Pos/Neg [facility] Lot Number [id number] [facility] Expiration Date 01/2014 [facility] SeriAl # [facility] Control Line Yes Yes/No [facility] Urine specimen (specimen) 06/27/2013 12:40 PM EDT us Ginger Arzate ENHANCED ENVIRONMENTAL OPERATOR POINT OF CARE TEST ORDERABLE S Final Result Performing Organization Address [facility] Co de Phone Number [facility] [address] [place] [address] documented in this encounter Visit Diagnoses Diagnosis [...] 06/27/2013 documented in this encounter Care Teams Loss Prevention Detective Relationship Specialty Start Date End Date Nehemias Barron MD [address] [place] [id number] PCP - General 12/01/10 documented as of this encounter
--- OUTSIDE RECORDS SUMMARY | 2024-03-07 05:10 | XMS_ITS | Encounter Summary ---
Author Organization [place] [address] Care Team Providers Care Ems Helicopter Pilot Name Role Phone Nehemias Barron MD Primary Care Provider [phone] Encounter Details Date Type Department Care Team (Latest Contact Info) Description 05/31/2013 2:55 PM EST - 05/31/2013 11:59 PM EST Hospital Encounter [facility] [address] [place] [address] Amenorrhea (Primary Dx); Syncope, vasovagal; Severe dysplasia of cervix (MATT III) Discharge [...] vasovagal Severe dysplasia of cervix (MATT III) One Time for 1 Occurrences starting 05/31/2013 until 05/31/2013 documented as of this encounter Procedures Procedure Name Priority Date/Time Associated Diagnosis Comments HUMAN CHORIONIC GONADOTROPIN QUANTITATIVE STAT 05/31/2013 3:05 PM EST Amenorrhea documented in this encounter Results * BETA HUMAN CHORIONIC GONADOTROPIN QUANTITATIVE (05/31/2013 3:05 PM EST) hCG Quant 0 0 - 5 mIU/mL [facility] Blood specimen (specimen) UPPER LIMB STRUCTURE / Unknown 05/31/2013 3:05 PM EST 05/31/2013 3:05 PM EST us Sachin Castellanos MD CHEMISTRY ORDERABLES Final Resul t [facility] [address] [place] [address] documented in this encounter Visit Diagnoses Diagnosis Amenorrhea- Primary Absence of menstruation Syncope, vasovagal Syncope and collapse 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
--- OUTSIDE RECORDS SUMMARY | 2024-03-07 05:10 | XMS_ITS | Encounter Summary ---
Author Organization [place] [address] Care Team Providers Care Capital Markets Specialist Name Role Phone Nehemias Barron MD Primary Care Provider [phone] Reason for Visit * Reason Onset Date Comments Medication Reaction 06/28/2013 Encounter Details Date Type Department Care Team (Late st Contact Info) Description 06/28/2013 Telephone [facility] [address] [address] Arlyn Raman RMA Medication Reaction Social History Tobacco Use Types Packs/Day Years [...] Refills Last Filled Start Date End Date promethazine (PHENERGAN) 25 mg tablet Take 1 Tab by mouth every 6 hours as needed for Nausea for 10 days. 20 Tab 0 06/29/2013 07/09/2013 documented in this encounter Miscellaneous Notes * Telephone Encounter - Arlyn Raman RMA - 06/29/2013 3:22 PM EDT Spoke with Pt we did not call in Davocet we called in Phenergan. * Telephone Encounter - Arlyn Raman RMA - 06/29/2013 9:18 AM EDT Pt aware * Telephone Encounter - Sachin Castellanos MD - 06/29/2013 9:15 AM EDT Will call in Darcet. * Telephone Encounter - Arlyn Raman RMA - 06/28/2013 4:46 PM EDT Pt called and would like to see if she can get a diff medication other than the hydrocodone this medication is making her sick. documented in this encounter Plan of Treatment Not on file documented as of this encounter Visit Diagnoses Not on filedocumented in this encounter Care Teams Capital Markets Specialist Relationship Specialty Start Date End Date Nehemias Barron MD [address] [place] [address] PCP - General 12/01/10 documented as of this encounter
--- OUTSIDE RECORDS SUMMARY | 2024-03-07 05:10 | XMS_ITS | Encounter Summary ---
Author Organization [place] [address] Care Team Providers Care Apprise Counselor Name Role Phone Nehemias Barron MD Primary Care Provider [phone] Reason for Visit * Reason Onset Date Comments Results 12/03/2010 Positive GC Chla mydia Encounter Details Date Type Department Care Team (Late Contact Info) Description 12/03/2010 Telephone [facility] [place] [facility] [address] [facility] [place] [address] Tori Sagastume, RMA [address] [place] [address] Results (Positive GC Chlamydia) Social History Tobacco Use Types Packs/Day Years [...] encounter Miscellaneous Notes * Telephone Encounter - Tori Sagastume MA - 12/17/2010 9:18 AM EDT Left another message on both phone #s in pt's chart, and sent a note. * Telephone Encounter - Tori Sagastume MA - 12/07/2010 8:33 AM EDT L/m again today to call back. * Telephone Encounter - Tori Sagastume MA - 12/03/2010 3:[address] [place], have pt come in. Needs treatment for positive GC chlamydia documented in this encounter Plan of Treatment Not on file documented as of this encounter Visit Diagnoses Not on filedocumented in this encounter Care Teams Apprise Counselor Relationship Specialty Start Date End Date Nehemias Barron MD [address] [place] [phone] PCP - General 12/01/10 documented as of this encounter
--- OUTSIDE RECORDS SUMMARY | 2024-03-07 05:10 | XMS_ITS | Encounter Summary ---
Author Organization [place] [address] Care Team Providers Care Insurance Processing Clerk Name Role Phone Nehemias Barron MD Primary Care Provider [phone] Reason for Visit * Reason Comments Abdominal Pain lt lower abdominal p ain x 3 days. CPTA: none Encounter Details Date Type Department Care Team (Late st Contact Info) Description 01/03/2014 1:25 AM EDT - 01/03/2014 3:07 AM EDT [facility] [address] [place] [address] Ana Paula Ochoa III, MD [address] [place] [id number] Early stage of (Primary Dx) Discharge Disposition: Home or Self [...] Sign Reading Time Taken Comments Blood Pressure 112/72 01/03/2014 1:29 AM EDT Pulse 104 01/03/2014 1:29 AM EDT Temperature 36.7 ??C (98.1 ??F) 01/03/2014 1:29 AM ED T Respiratory Rate 18 01/03/2014 1:29 AM EDT Oxygen Saturation 98% 01/03/2014 1:29 AM EDT Inhaled Oxygen Concentration - - Weight 63.5 kg (140 lb) 01/03/2014 1:29 AM EDT Height 165.1 cm (5' 5 ) 01/03/2014 1:29 AM EDT Body Mass Index 23.3 01/03/2014 1:29 AM EDT documented in this encounter Discharge Instructions * Attachments The following attachments cannot be sent through Care Everywhere. * ABDOMINAL PAIN DURING (SAMOAN) documented in this encounter Medications at Time of Discharge ondansetron (ZOFRAN, HYDROCHLORIDE,) 4 mg Oral Tablet Take 1 tablet by mouth every 6 hours for 3 days. 10 tablet 0 01/03/2014 01/06/2014 documented as of this encounter Ordered Prescriptions Prescription Sig Dispense Quantity Refills Last Filled Start Date End Date ondansetron (ZOFRAN, HYDROCHLORIDE,) 4 mg Oral Tablet Take 1 tablet by mouth every 6 hours for 3 days. 10 tablet 0 01/03/2014 01/06/2014 documented in this encounter Discharge Disposition Disposition Code Departure Means Destination Home or Self Usp documented in this encounter ED Notes * Ana Paula Ochoa III, MD - 01/03/2014 1:32 AM EDT CHIEF COMPLAINT Chief Complaint Patient presents with ??? Abdominal Pain lt lower abdominal pain x 3 days. CPTA: none HPI Bonny Gautam is a 23 y.o. female who presents to the emergency department complaining of 3 days of left lower quadrant pain described as contraction-like pains. Patient took some tlak-azg-[id number] pain reliever about 3 hours ago without relief. Patient is nauseated. Pain is described as 5/10 and crampy in quality. Patient thinks she is about one week late on her menstrual cycle. She has been trying to get . She denies vaginal bleeding or discharge. She has been once before with a live . REVIEW OF SYSTEMS See HPI for further [...] Yes Partners: Male Other Topics Concern ??? Not on file Social History Narrative ??? No narrative on file SURGICAL HISTORY Past Surgical History Procedure Laterality Date ??? Appendectomy age 7 ??? Cervix biopsy 2010, 05/29/2013 ??? Skin cancer excision 06/2012 melanoma back ??? Leep N/A 06/27/2013 LOOP EXCISION PROCEDURE (LEEP); Surgeon: Sachin Castellanos MD; Location: [facility] MAIN OR; Service: Gynecology CURRENT MEDICATIONS No current outpatient prescriptions on file. ALLERGIES Allergies Allergen Reactions ??? Sulfa (Sulfonamide Antibiotics) Swelling and Rash throat closes up, rash, and red everywhere PHYSICAL EXAM VITAL SIGNS: BP 112/72 Pulse 104 Temp(Src) 98.1 ??F (36.7 ??C) (Oral) Resp 18 Ht 5' 5 (1.651 m) Wt 140 lb (63.504 kg) BMI 23.3 kg/m2 SpO2 98% LMP 11/28/2013 Constitutional: Well developed, Well nourished, No acute distress, Non-toxic appearance. HENT: Normocephalic, Atraumatic, Bilateral external ears normal, Oropharynx moist, No oral exudates, Nose normal. Eyes: PERRLA, EOMI, Conjunctiva normal, No discharge. Neck: Normal range of motion, No tenderness, Supple, No stridor. Lymphatic: No lymphadenopathy noted. Cardiovascular: Tachycardic heart rate, Normal rhythm, No murmurs, No rubs, No gallops. Thorax & Lungs: Normal breath sounds, No respiratory distress, No wheezing, No chest tenderness. Abdomen: Soft, mildly tender in left lower quadrant, negative rebound or guarding. Skin: Warm, Dry, No erythema, No rash. Back: No tenderness, No CVA tenderness. Extremities: Intact distal pulses, No edema, No tenderness, No cyanosis. Neurologic: Alert & oriented x 3, Normal motor function, Normal sensory function, No focal deficits noted. RADIOLOGY/PROCEDURES/LABS Results for orders placed during the hospital encounter of 01/03/14 HCG QUALITATIVE Result Value Range HCG QUAL Indeterminate URINALYSIS Result Value Range UA Color Yellow UA Appear Slightly Hazy (*) Clear UA Glucose Negative Negative UA Ketones Negative Negative UA Blood Trace (*) Negative UA pH 6.0 5.0 - 8.0 UA Protein Negative Negative UA Urobilinogen 2 mg/dl (*) <=1 mg/dl UA Nitrite Negative Negative UA Leuk Est Negative Negative UA Spec Grav >1.030 1.001 - 1.035 UA RBC 1-3 UA Squam Epi 1+ UA Mucus 2+ UA Amorph Trace UA Bacteria Trace HUMAN CHORIONIC GONADOTROPIN QUANTITATIVE Result Value Range hCG Quant 23 COURSE & MEDICAL DECISION MAKING Pertinent Labs & Imaging studies reviewed. (See chart for details) 2:40 AM I believe the patient has an early . The pain may be related to a ruptured cyst we will check a urine as well. 2:58 AM Urine is unremarkable. I am giving the patient prescription for Zofran for nausea. 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 FINAL IMPRESSION 1. Early stage of This chart was completed using voice recognition technology and may contain unintended errors Ana Paula Ochoa III, MD 01/03/14 0258 documented in this encounter Plan of Treatment Not on file documented as of this encounter Procedures Procedure Name Priority Date/Time Associated Diagnosis Comments URINALYSIS STAT 01/03/2014 2:41 AM EDT HCG QUALITATIVE STAT 01/03/2014 1:36 AM EDT HUMAN CHORIONIC GONADOTROPIN QUANTITATIVE STAT 01/03/2014 1:36 AM EDT documented in this encounter Results * (ABNORMAL) URINALYSIS (01/03/2014 2:41 AM EDT) UA Color Yellow [facility] UA Appear Slightly Hazy(A) Clear [facility] UA Glucose Negative Negative [facility] UA Ketones Negative Negative [facility] UA Blood Trace(A) Negative [facility] UA pH 6.0 5.0 - 8.0 [facility] UA Protein Negative Negative [facility] UA Urobilinogen 2 mg/dl(A) <=1 mg/dl [facility] UA Nitrite Negative Negative [facility] UA Leuk Est Negative Negative [facility] UA Spec Grav >1.030 1.001 - 1.035 [facility] UA RBC 1-3 /HPF [facility] UA Squam Epi 1+ [facility] UA Mucus 2+ [facility] UA Amorph Trace [facility] UA Bacteria Trace [facility] Urine specimen (specimen) URINE SPECIMEN COLLECTION, CLEAN CATCH / Unknown 01/03/2014 2:41 AM EDT 01/03/2014 2:41 AM EDT us Ana Paula Ochoa III, MD URINE ORDERABLES Final R esult [facility] [address] [place] [address] * HUMAN CHORIONIC GONADOTROPIN QUANTITATIVE (01/03/2014 1:36 AM EDT) hCG Quant 23 mIU/mL Blood specimen (specimen) UPPER LIMB STRUCTURE / Unknown 01/03/2014 1:36 AM EDT 01/03/2014 2:12 AM EDT us Ana Paula Ochoa III, MD CHEMISTRY ORDERABLES Fin al Result * HCG QUALITATIVE (01/03/2014 1:36 AM EDT) HCG QUAL Indeterminate [facility] Blood specimen (specimen) 01/03/2014 1:36 AM EDT 01/03/2014 1:38 AM EDT us Ana Paula Ochoa III, MD CHEMISTRY ORDERABLES Silvestre zane Result - Final [facility] [address] [place] [address] documented in this encounter Visit Diagnoses Diagnosis Early stage of - Primary Other specified complication, antepartum(646.83) Other specified complication, antepartum Abdominal pain, other specified site documented in this encounter Administered Medications Inactive Administered Medications - up to 1 most recent administrations Medication Order MAR Action Action Date Dose Rate Site HYDROcodone-acetaminophen (NORCO) 5-325 mg per tablet 1 tablet 1 Tablet, Oral, ONCE, 1 dose, On Patti 01/03/14 at 0145, Maximum adult dose of acetaminophen is 4000 mg from all sources in 24 hours. Given 01/03/2014 1:36 AM EDT 1 Tablet ondansetron (ZOFRAN-ODT) disintegrating tablet 4 mg 4 mg, Oral, ONCE, 1 dose, On Patti 01/03/14 at 0145, Dissolve in mouth Given 01/03/2014 1:36 AM EDT 4 mg documented in this encounter Active and Recently Administered Medications Times are shown in EDT. Scheduled Medication Order 01/01/2014 01/02/2014 01/03/2014 HYDROcodone-acetaminophen (NORCO) 5-325 mg per tablet 1 tablet (COMPLETED) 1 Tablet, Oral, ONCE, 1 dose, On Patti 01/03/14 at 0145, Maximum adult dose of acetaminophen is 4000 mg from all sources in 24 hours. 0136 (Given - Provid er: Moon Najera) ondansetron (ZOFRAN-ODT) disintegrating tablet 4 mg (COMPLETED) 4 mg, Oral, ONCE, 1 dose, On Patti 01/03/14 at 0145, Dissolve in mouth 0136 (Given - Provid er: Moon Najera) documented in this encounter Care Teams Insurance Processing Clerk Relationship Specialty Start Date End Date Nehemias Barron MD [address] [place] [phone] PCP - General 12/01/10 documented as of this encounter
--- OUTSIDE RECORDS SUMMARY | 2024-03-07 05:10 | XMS_ITS | Encounter Summary ---
Author Organization [place] [address] Care Team Providers Care Breeder Hen Service Technician Name Role Phone Nehemias Barron MD Primary Care Provider [phone] Reason for Visit * Reason Comments Vaginal Bleeding pt reports seeing a rust color discharge on her toilet paper this am after urinating. pt said she then developed abdominal pain. no pain now except when she moved to sit on stretcher.pt had this 4 week Encounter Details Date Type Department Care Team (Late st Contact Info) Description 12/25/2010 2:23 PM EDT - 12/25/2010 4:40 PM EDT Emergency [facility] [address] [facility] [place] [address] Natalya Sanabria MD Infections of genitourinary tract antepartum; Urinary tract infection, site not specified Discharge Disposition: Home or Self Care Social [...] Sign Reading Time Taken Comments Blood Pressure 111/58 12/25/2010 2:48 PM EDT Pulse 81 12/25/2010 2:48 PM EDT Temperature 36.7 ??C (98 ??F) 12/25/2010 2:48 PM EDT Respiratory Rate 20 12/25/2010 2:48 PM EDT Oxygen Saturation 100% 12/25/2010 2:48 PM EDT Inhaled Oxygen Concentration - - Weight 62.1 kg (137 lb) 12/25/2010 2:48 PM EDT Height - - Body Mass Index 22.8 12/01/2010 3:41 PM EDT Body Mass Index Percentile 65.66% 12/25/2010 2:4 8 PM EDT Growth Chart: [facility] (Girls, 2- 20 Years) documented in this encounter Discharge Instructions * Discharge Instructions* Julio Raman APRN - 12/25/2010 4:17 PM EDT Follow up with your family doctor for a recheck. If you do not have a doctor, you can call [phone] for a family doctor. Return here for worsening of symptoms. Tylenol only for any pain. We will call you with your type and RH results. If positive, nothing further needed. If negative, you need to come back for a Rhogam shot. * Attachments The following attachments cannot be sent through Care Everywhere. * URINARY TRACT INFECTION, CARE OF, [id number] (CAMEROONIAN) documented in this encounter Medications at Time of Discharge nitrofurantoin, macrocrystal-mono hydrate, (MACROBID) 100 mg capsule Take 1 Cap by mouth 2 times daily for 20 doses. 20 Cap 0 12/25/2010 01/04/2011 documented as of this encounter Ordered Prescriptions Prescription Sig Dispense Quantity Refills Last Filled Start Date End Date nitrofurantoin, macrocrystal-monohy drate, (MACROBID) 100 mg capsule Take 1 Cap by mouth 2 times daily for 20 doses. 20 Cap 0 12/25/2010 01/04/2011 documented in this encounter Discharge Disposition Disposition Code Departure Means Destination Home or Self Shelter documented in this encounter Progress Notes * Unknown, Unknown - 12/25/2010 3:04 PM EDT * Unknown, Unknown - 12/25/2010 3:03 PM EDT documented in this encounter Procedure Notes * Unknown, Unknown - 12/28/2010 9:46 AM EDTAssociated Order(s): SCANNED LABS documented in this encounter Nursing Notes * Unknown, Unknown - 12/28/2010 9:46 AM EDT documented in this encounter ED Notes * Fermin Valdez RN - 12/25/2010 7:57 PM EDT Spoke to Wandy at [facility] lab, therese blood work was reported to be AB+. Results given to Von RamanNP and called pt at [phone]. * Natalya Sanabria MD - 12/25/2010 4:18 PM EDT I have reviewed the chief complaint and history of present illness and review of systems as well asthe past medical/social/family history sections for this patient. I have examined this patient, andparticipated in the care of this patient. I have reviewed the pertinent clinical information including physical exam, labs, radiographic studies and the plan. This patient was seen in coordination with PA/PHYSICAL THER. Rh status is pending. Lab will call with results. Patient has already had an ultrasound done which revealed a viable IUP. Natalya Sanabria MD 12/25/10 8671 * Fermin Valdez RN - 12/25/2010 3:50 PM EDT Pelvic exam done with Von Raman PHYSICAL THER. Pt michelle well. * Julio Raman APRN - 12/25/2010 3:02 PM EDT CHIEF COMPLAINT Chief Complaint Patient presents with ??? Vaginal Bleeding pt reports seeing a rust color discharge on her toilet paper this am after urinating. pt said she then developed abdominal pain. no pain now except when she moved to sit on stretcher.pt had this 4 week HPI BONNY OLIVARES is a 20 y.o. female who presents to the Emergency Room With complaints of low pelvic cramping since early this morning. Patient states she urinated this morning and noticed some blood on the toilet tissue. Denies actual vaginal bleeding. Denies vaginal discharge. Patient states she has felt nausea, denies vomiting. Denies low back pain. Patient states the pain has been intermittent since early this morning he describes it as cramping. Patient is currently 10 weeks states last menstrual period November 04. Patient was seen here December 01 and had a pelvic ultrasound which revealed a 6 week 4 day IUP with a heartbeat of 114. At that time patient was diagnosed with a urinary t ract infection. She also incidentally had Chlamydia. Patient states she has been treated for Chlamydia. REVIEW OF SYSTEMS See HPI for further [...] file SURGICAL HISTORY Past Surgical History Procedure Date ??? Appendectomy CURRENT MEDICATIONS Current Outpatient Rx Name Route Sig Dispense Refill ??? VITAMIN ORAL Oral Take by mouth. ??? ACETAMINOPHEN 325 MG TAB Oral Take by mouth every 4 hours as needed for Pain. Take as directed 30 Tab 1 ??? NITROFURANTOIN MONOHYDRATE/MACROCRYSTALS 100 MG CAP Oral Take 1 Cap by mouth 2 times daily for 20 doses. 20 Cap 0 ALLERGIES Allergies Allergen Reactions ??? Sulfa (Sulfonamide Antibiotics) PHYSICAL EXAM VITAL SIGNS: ED Triage Vitals Temp 12/25/10 1448 98 ??F (36.7 ??C) Pulse 12/25/10 1448 81 Resp 12/25/10 1448 20 BP 12/25/10 1448 111/58 mmHg SpO2 12/25/10 1448 100 % Height -- Wt - Scale 12/25/10 1448 137 lb (62.143 kg) Constitutional: Well developed, Well nourished, No acute [...] No wheezing, No chest tenderness. Abdomen: Soft, flat, positive bowel sounds x4. Nontender. No peritoneal signs. Pelvic Exam: Full Service Vending Driver present. Normal external genitalia with Normal vulva. Normal vagina with no polyps or lesions. Thick white discharge. Normal cervix with normal mucosa. Cervical os closed. No bleeding noted. No CMT. No adnexal tenderness. No masses palpated. Skin: Warm, Dry, No erythema, No rash. Back: No tenderness, No CVA tenderness. Extremities: Intact distal pulses, No edema, No tenderness. Neurologic: Alert & oriented x 3, Normal motor function, Normal sensory function, No focal deficits noted. LABS/RADIOLOGY/PROCEDURES Results for orders placed during the hospital encounter of 12/25/10 POCT URINALYSIS DIPSTICK Component Value Range ??? Color, UA YELLOW - (Clear, Yellow, Navarro, Rust) ??? Clarity, UA SLIGHTLY CLOUDY - (Clear, Cloudy) ??? Glucose, UA N - (g/dl%) ??? Bilirubin, UA N - (Pos/Neg) ??? Ketones, UA N - (Pos/Neg) ??? Spec Grav, UA 1.020 1.020-1.030 (g/dl) ??? Blood, UA MOD (*) - (Pos/Neg) ??? pH, UA 7.0 (*) 5.0-6.5 ??? Protein, UA N - (Pos/Neg) ??? Urobilinogen, UA 0.2 0.2-1.0 (mg/dL) ??? Leukocytes, UA SMALL (*) - (Pos/Neg) ??? Nitrite, UA N - (Pos/Neg) ??? Appear BF Slightly Cloudy Clear, Slightly Cloudy- (Clear, Cloudy) ??? Lot Number [id number] - ??? Expiration Date - ??? SeriAl # - URINALYSIS Component Value Range ??? UA Color Yellow - ??? UA Appear Clear - ??? UA Glucose Negative - ??? UA Bili Negative - ??? UA Ketones Negative - ??? UA Blood Moderate (*) - ??? UA pH 7.0 4.8-8.0 ??? UA Protein Negative - ??? UA Urobilinogen 0.2 mg/dl - ??? UA Nitrite Negative - ??? UA Leuk Est Moderate (*) - ??? UA Spec Grav 1.015 1.001-1.035 ??? UA WBC 20-50 - (/HPF) ??? UA RBC 3-5 - (/HPF) ??? UA Squam Epi 2+ - ??? UA Bacteria 3+ - COURSE & MEDICAL DECISION MAKING Pertinent Labs & Imaging studies reviewed. (See chart for details) Filed Vitals: 12/25/2010 2:48 PM BP: 111/58 Pulse: 81 Temp: 98 ??F (36.7 ??C) Resp: 20 Weight: 137 lb (62.143 kg) SpO2: 100% Pt presents to the ED with the above complaints. No bleeding noted on pelvic exam. Pt has a UTI. Will be tx'd for a UTI. She will be called with type and RH results. F/u with PMD, return here for anyfurther problems or concerns. I treated/staffed this patient with Dr. Sanabria. FINAL IMPRESSION Encounter Diagnoses Code Name Primary? Qualifier ??? 599.0V UTI (lower urinary tract infection) ??? V22.2C Condition on discharge: Stable Julio Raman APRN 12/25/10 1619 Cosigned by Natalya Sanabria MD at 12/25/2010 7:25 PM EDT * Fermin Valdez RN - 12/25/2010 2:56 PM EDT Pt said she was here a month ago for the same symptoms and was told she had a uti, Pt has finished her antibiotics. Culture results from pelvic exam were sent to Dr. Barron. Pt was treat Wed for chlamydia. documented in this encounter Plan of Treatment Not on file documented as of this encounter Procedures Procedure Name Priority Date/Time Associated Diagnosis Comments SCANNED LABS 12/28/2010 12:00 AM EDT ABORH STAT 12/25/2010 4:16 PM EDT URINALYSIS STAT 12/25/2010 3:31 PM EDT POCT URINALYSIS DIPSTICK STAT 12/25/2010 3:15 PM EDT documented in this encounter Results * SCANNED LABS (12/28/2010 12:00 AM EDT) Narrative 12/28/2010 9:46 AM EDT Ordered by an unspecified provider. Transcriptions Unknown, Unknown - 12/28/2010 9:46 AM EDT us Unknown Unknown HEMATOLOGY ORDERABLES Final Resu lt * ABORH (12/25/2010 4:16 PM EDT) ABOR Int AB POS [facility] Blood specimen (specimen) UPPER LIMB STRUCTURE / Unknown 12/25/2010 4:16 PM EDT 12/25/2010 7:28 PM EDT Narrative [facility] - 12/25/2010 7:52 PM EDT Call result to Von Raman at [facility], ext [phone]. us Natalya Sanabria MD BLOOD BANK ORDERABLES Final Result [facility] [address] [place] [address] * (ABNORMAL) URINALYSIS (12/25/2010 3:31 PM EDT) UA Color Yellow [facility] UA Appear Clear [facility] UA Glucose Negative Negative [facility] UA Bili Negative Negative [facility] UA Ketones Negative Negative [facility] UA Blood Moderate(A) Negative [facility] UA pH 7.0 4.8 - 8.0 [facility] UA Protein Negative Negative [facility] UA Urobilinogen 0.2 mg/dl [facility] UA Nitrite Negative Negative [facility] UA Leuk Est Moderate(A) Negative [facility] UA Spec Grav 1.015 1.001 - 1.035 [facility] UA WBC 20-50 /HPF [facility] UA RBC 3-5 /HPF [facility] UA Squam Epi 2+ [facility] UA Bacteria 3+ [facility] Urine specimen (specimen) 12/25/2010 3:31 PM EDT 12/25/2010 3:31 PM EDT Natalya Sanabria MD URINE ORDERABLES Final Resul t [facility] [address] [place] [address] * (ABNORMAL) POCT URINALYSIS DIPSTICK (12/25/2010 3:15 PM EDT) Color, UA YELLOW Clear, Yellow, Navarro, Rust Clarity, UA SLIGHTLY CLOUDY Clear, Cloudy Glucose, UA N g/dl% Bilirubin, UA N Pos/Neg Ketones, UA N Pos/Neg Spec Grav, UA 1.020 1.020 - 1.030 g/dl Blood, UA MOD(H) Pos/Neg pH, UA 7.0(A) 5.0 - 6.5 Protein, UA N Pos/Neg Urobilinogen, UA 0.2 0.2 - 1.0 mg/dL Leukocytes, UA SMALL(L) Pos/Neg Nitrite, UA N Pos/Neg Appear BF Slightly Cloudy Clear, Slightly Cloudy Clear, Cloudy Lot Number [id number] Expiration Date SeriAl # Urine specimen (specimen) 12/25/2010 3:15 PM EDT Natalya Sanabria MD POINT OF CARE TEST ORDERABLE S Final Result documented in this encounter Visit Diagnoses Diagnosis Infections of genitourinary tract antepartum Urinary tract infection, site not specified documented in this encounter Orders Nursing Count Last Ordered Date First Orde red Date SET UP FOR PELVIC EXAM 1 12/25/2010 documented in this encounter Care Teams Breeder Hen Service Technician Relationship Specialty Start Date End Date Nehemias Barron MD [address] [facility] [phone] PCP - General 12/01/10 documented as of this encounter
--- OUTSIDE RECORDS SUMMARY | 2024-03-07 05:10 | XMS_ITS | Encounter Summary ---
Author Organization [place] [address] Care Team Providers Care Bottle House Cleaners Supervisor Name Role Phone Nehemias Barron MD Primary Care Provider Reason for Visit * Reason Onset Date Comments Medication Refill 07/21/2012 Encounter Details Date Type Department Care Team (Late st Contact Info) Description 07/21/2012 Telephone [facility] [address] [facility] [place] [place] [address] Ginger Raya MA Medication Refill Social History Tobacco Use Types [...] Date End Date predniSONE (DELTASONE) 20 mg tabletIndications:R radha Take 1 Tab by mouth 2 times daily for 7 days. 14 Tab 0 07/21/2012 07/28/2012 documented in this encounter Miscellaneous Notes * Telephone Encounter - Bonny Santizo MA - 07/22/2012 11:17 AM EDT Patient notified. * Telephone Encounter - Lilly Sherman MA - 07/21/2012 4:41 PM EDT Phone not remigio * Telephone Encounter - Jude Aldrich MD - 07/21/2012 12:59 PM EDT OK, but shouldn't continue doing this. RTC if not better. * Telephone Encounter - Ginger Giron MA - 07/21/2012 10:56 AM EDT Requesting refill of medication for eczema documented in this encounter Plan of Treatment Not on file documented as of this encounter Visit Diagnoses Diagnosis Rash- Primary Rash and other nonspecific skin eruption documented in this encounter Discontinued Medications Medication Sig Discontinue Reason Start Date End Da te predniSONE (DELTASONE) 20 mg tabletIndications:Rash Take 1 Tab by mouth 2 times daily for 7 days. Reorder 07/07/2012 07/21/2012 documented as of this encounter Care Teams Bottle House Cleaners Supervisor Relationship Specialty Start Date End Date Nehemias Barron MD [address] [place] [phone] PCP - General 12/01/10 documented as of this encounter
--- OUTSIDE RECORDS SUMMARY | 2024-03-07 05:11 | XMS_ITS | Encounter Summary ---
Author Organization [place] [address] Care Team Providers Care Black Top Paver Operator Name Role Phone Unavailable Primary Care Provider Unavailabl e Encounter Details Date Type Department Care Team (Late st Contact Info) Description 08/14/2008 2:07 PM EDT - 08/14/2008 3:06 PM EDT Hospital Encounter [facility] EPIC CON UNK Erik Benavidez MD [address] [place] [phone] Social History Tobacco Use Types Packs/Day Years Used Date Smoking Tobacco: Never Assessed Comments Unknown Sex and Gender Information Value Date Recorded Sex Assigned at Not on file Legal Sex Female 7:55 PM EDT Gender Identity Not on file Sexual Orientation Not on file documented as of this encounter Plan of Treatment Scheduled Orders Name Type Priority Associated Diagnoses Orde r Schedule XR ANKLE GC Imaging Routine Once for 1 Oc currences starting 06/19/2009 until 06/19/2009, 1 completed documented as of this encounter Procedures Procedure Name Priority Date/Time Associated Diagnosis Comments GC XX ANKLE Routine 08/14/2008 2:27 PM EDT documented in this encounter Results * XR ANKLE GC (08/14/2008 2:27 PM EDT) Anatomical Region Laterality Modality Other 08/14/2008 2:27 PM EDT Narrative 08/14/2008 2:56 PM EDT Left ankle 3 views 08/14/2008 Comparison- 07/01/2008. History- Left ankle pain laterally, injury. Impression- ??No significant osseous, joint or soft tissue abnormality is seen. ? Communicable Disease Specialist- RADHA HERNANDEZ ? Reading Physician- IGNACIA BOCANEGRA ??MD ? Released Date Time- 08/14/081618 Procedure Note Ignacia Bocanegra W - 06/19/2009 Left ankle 3 views 08/14/2008 Comparison- 07/01/2008. History- Left ankle pain laterally, injury. Impression- No significant osseous, joint or soft tissue abnormality is seen. Communicable Disease Specialist- RADHA Frank PhysicianIsaiah BOCANEGRA MD Released Date Time- 08/14/081618 Result [facility] Erik Solares MD [facility] DENISSE Ascencio inamanuelito Result documented in this encounter Visit Diagnoses Not on filedocumented in this encounter
--- OUTSIDE RECORDS SUMMARY | 2024-03-07 05:11 | XMS_ITS | Encounter Summary ---
Author Organization [place] [address] Care Team Providers Care Barrel Rifler Operator Name Role Phone Jude Aldrich MD Primary Care Provider Encounter Details Date Type Department Care Team (Late st Contact Info) Description 04/24/2009 1:14 AM EST - 04/24/2009 11:59 PM EST Hospital Encounter [facility] Social History Tobacco Use Types Packs/Day Years [...] filedocumented in this encounter Care Teams Barrel Rifler Operator Relationship Specialty Start Date End Date Jude Aldrich MD [address] [place] [address] PCP - General 04/16/09 11/30/10 documented as of this encounter
--- OUTSIDE RECORDS SUMMARY | 2024-03-07 05:11 | XMS_ITS | Encounter Summary ---
Author Organization [place] [address] Care Team Providers Care Child Daycare Worker Name Role Phone Jude Aldrich MD Primary Care Provider Reason for Visit * Reason Onset Date Comments Other 01/26/2010 Encounter Details Date Type Department Care Team (Late st Contact Info) Description 01/26/2010 Telephone [facility] [address] [place] [address] Jude Aldrich MD [address] [place] [address] Other Social History Tobacco Use Types Packs/Day Years Used Date Smoking Tobacco: Every Day Alcohol Use Standard Drinks/Week Comments Yes 0 (1 standard drink = 0.6 oz pur e alcohol) Comments No Sex and Gender Information Value Date Recorded Sex Assigned at Not on file Legal Sex Female 7:55 PM EDT Gender Identity Not on file Sexual Orientation Not on file documented as of this encounter Miscellaneous Notes * Telephone Encounter - Bella Richmond MD - 01/26/2010 3:48 PM EDT ok * Telephone Encounter - Job Allisonfadi Billings - 01/26/2010 3:36 PM EDT JUST WANTED TO LET US KNOW THAT SHE WENT TO THE ER TODAY FOR KNEE PAIN AND SWELLING. THEY TOLD HER THAT IF IT'S NOT BETTER IN 3 DAYS THEN SHE NEEDS TO SEE AN ORTHOPEDIC DR. documented in this encounter Plan of Treatment Not on file documented as of this encounter Visit Diagnoses Not on filedocumented in this encounter Care Teams Child Daycare Worker Relationship Specialty Start Date End Date Jude Aldrich MD [address] [place] [phone] PCP - General 04/16/09 11/30/10 documented as of this encounter
--- OUTSIDE RECORDS SUMMARY | 2024-03-07 05:11 | XMS_ITS | Encounter Summary ---
Author Organization [place] [address] Care Team Providers Care Heeler Name Role Phone Jude Aldrich MD Primary Care Provider Reason for Visit * Reason Comments Gynecologic Exam pap Encounter Details Date Type Department Care Team (Late st Contact Info) Description 02/05/2010 3:10 PM EDT Office Visit [facility] [address] [facility] [place] [address] Bella Richmond MD [address] [place] [address] Well child check; Test Clerk exam Social History Tobacco Use Types Packs/Day Years [...] Sign Reading Time Taken Comments Blood Pressure 90/62 02/05/2010 3:02 PM EDT Pulse 60 02/05/2010 3:02 PM EDT Temperature 36.7 ??C (98 ??F) 02/05/2010 3:02 PM EDT Respiratory Rate - - Oxygen Saturation - - Inhaled Oxygen Concentration - - Weight 60.8 kg (134 lb) 02/05/2010 3:02 PM EDT Height - - Body Mass Index - - documented in this encounter Ordered Prescriptions Prescription Sig Dispense Quantity Refills Last Filled Start Date End Date levonorgestrel-ethi nyl estradiol (AVIANE;ALESSE;LESS DAVID) 0.1-20 mg-mcg per tabletIndications:G yn exam Take 1 Tab by mouth daily. 30 Tab 12 02/05/2010 12/01/2010 documented in this encounter Progress Notes * Silvestre, Belt Loop Maker - 02/27/2010 12:02 PM EST * Bella Richmond MD - 02/05/2010 3:14 PM EDT Subjective: Patient ID: BONNY OLIVARES is a 19 y.o. female. HPI Requests birthcontrol. Has been sexually active has had 5 partners. Parents are aware. Past Medical History Diagnosis Date ??? Knee injury Review of Systems Genitourinary: Negative for frequency, vaginal discharge and vaginal pain. Objective: Filed Vitals: 02/05/2010 3:02 PM BP: 90/62 Pulse: 60 Temp: 98 ??F (36.7 ??C) TempSrc: Forehead Weight: 134 lb (60.782 kg) Physical Exam Nursing note and vitals reviewed. Constitutional: She appears well-developed. Eyes: Pupils are equal, round, and reactive [...] tenderness. Abdominal: Soft. Bowel sounds are normal. No tenderness. Genitourinary: Vagina normal and uterus normal. Cervix exhibits no friability. Right adnexum displays no mass, no tenderness and no fullness. Left adnexum displays no mass, no tenderness and no fullness. Skin: No rash noted. Psychiatric: She has a normal mood and affect. Assessment and Plan: Bonny was seen today for gynecologic exam. Diagnoses and associated orders for this visit: - Well child check - No associated orders - Test Clerk exam - Levonorgestrel-ethinyl estradiol 0.1 mg-20 mcg tab -- Take 1 Tab by mouth daily. Explained risks of std protection. If not able to remember to take pill will need depoprovera documented in this encounter Consult Notes * Silvestre Belt Loop Maker - 05/11/2010 9:24 AM EST documented in this encounter Plan of Treatment Scheduled Orders Name Type Priority Associated Diagnoses Orde r Schedule NH SPECIMEN HANDLING,DR OFF->LAB NH Charge Routine Well child check Test Clerk exam Ordered: 02/05/2010 documented as of this encounter Visit Diagnoses Diagnosis Well child check Routine infant or child health check Test Clerk exam Routine gynecological examination documented in this encounter Care Teams Heeler Relationship Specialty Start Date End Date Jude Aldrich MD [address] [place] [address] PCP - General 04/16/09 11/30/10 documented as of this encounter
--- OUTSIDE RECORDS SUMMARY | 2024-03-07 05:11 | XMS_ITS | Continuity of Care Document ---
Author Name [facility] Organization [facility] Care Team Providers Care Cloth Dyer Name Role Phone [facility] Unavailable Unavailable Procedures Combined list of: 1) Procedures from Department of Veterans Affairs facilities going back up to thelast 18 months, not all VA non-surgical procedures are included; 2) All procedures from the Department of Defense facilities. Procedure Procedure Type Code Date Perfomer Comments Sourc e NONINVASIVE EAR OR PULSE OXIMETRY FOR OXYGEN SATURATION; SINGLE DETERMINATION 07/07/2001 [facility] Social History Combined list of available smoking, tobacco, and other social history from Department of Defense and Veterans Affairs facilities. Social History Type Response Date Comment Sourc e This section is an empty social history section. DoD
--- OUTSIDE RECORDS SUMMARY | 2024-03-07 05:11 | XMS_ITS | Encounter Summary ---
Author Organization [place] [address] Care Team Providers Care Manager Labor Delivery Name Role Phone Jude Aldrich MD Primary Care Provider Encounter Details Date Type Department Care Team (Late st Contact Info) Description 04/23/2009 10:12 PM EST - 04/24/2009 12:11 AM EST Hospital Encounter [facility] EMERGENCY [facility] Shon Jeffrey MD [address] [place] [phone] Social History Tobacco Use Types Packs/Day Years Used Date Smoking Tobacco: Never Assessed Comments Unknown Sex and Gender Information Value Date Recorded Sex Assigned at Not on file Legal Sex Female 7:55 PM EDT Gender Identity Not on file Sexual Orientation Not on file documented as of this encounter Progress Notes * Unknown, Unknown - 04/15/2011 11:00 AM EST * Unknown, Unknown - 04/15/2011 10:57 AM EST documented in this encounter Procedure Notes * Unknown, Unknown - 04/15/2011 10:57 AM ESTAssociated Order(s): SCANNED EKG * Unknown, Unknown - 04/15/2011 10:57 AM ESTAssociated Order(s): SCANNED LABS documented in this encounter ED Notes * Unknown, Unknown - 04/15/2011 10:57 AM EST * Unknown, Unknown - 07/11/2009 12:04 PM EDT documented in this encounter Miscellaneous Notes * Miscellaneous - Unknown, Unknown - 04/15/2011 10:57 AM EST documented in this encounter Plan of Treatment Not on file documented as of this encounter Procedures Procedure Name Priority Date/Time Associated Diagnosis Comments SCANNED EKG 04/15/2011 10:57 AM EST SCANNED LABS 04/15/2011 10:57 AM EST PARTIAL THROMBOPLASTIN TIME Routine 04/23/2009 10:45 PM EST documented in this encounter Results * SCANNED LABS (04/15/2011 10:57 AM EST) Narrative Transcriptions Unknown, Unknown - 04/15/2011 10:57 AM EST us Unknown Unknown HEMATOLOGY ORDERABLES Final Resu lt * SCANNED EKG (04/15/2011 10:57 AM EST) Anatomical Region Laterality Modality Other Narrative Transcriptions Unknown, Unknown - 04/15/2011 10:57 AM EST us Unknown Unknown IMG ECG ORDERABLES Final Result * (ABNORMAL) PARTIAL THROMBOPLASTIN TIME (04/23/2009 10:45 PM EST) PTT 37.8(H) 23.6 - 33.[address] [facility] VENOUS BLOOD / Unknown 04/23/2009 10:45 PM EST 04/23/2009 10:54 PM EST us Shon Jeffrey MD HEMATOLOGY ORDERABLES Final Result Performing Organization Address City/State/[facility] Co de Phone Number [facility] [address] [place] [address] [facility] documented in this encounter Visit Diagnoses Not on filedocumented in this encounter Care Teams Manager Labor Delivery Relationship Specialty Start Date End Date Jude Aldrich MD [address] [place] [phone] PCP - General 04/16/09 11/30/10 documented as of this encounter
--- OUTSIDE RECORDS SUMMARY | 2024-03-07 05:11 | XMS_ITS | Encounter Summary ---
Author Organization [place] [address] Care Team Providers Care Relief Driller Name Role Phone Jude Aldrich MD Primary Care Provider Encounter Details Date Type Department Care Team (Latest Contact Info) Description 02/05/2010 7:45 PM EDT - 02/05/2010 11:59 PM EDT Hospital Encounter EDG LAB IVORY PROCESSING [facility] [place] [phone] Contact with or exposure to venereal diseases; Routine gynecological examination Discharge Disposition: Home or Self [...] Medications at Time of Discharge ibuprofen (ADVIL;MOTRIN) 800 mg Take 1 Tab by mouth 3 times daily. 15 Tab 0 01/26/2010 12/01/2010 levonorgestrel-et hinyl estradiol (AVIANE;ALESSE;LE SSINA) 0.1-20 mg-mcg per tabletIndications :Race Board Attendant exam Take 1 Tab by mouth daily. 30 Tab 12 02/05/2010 12/01/2010 documented as of this encounter Discharge Disposition Disposition Code Departure Means Destination Home or Self Care documented in this encounter Procedure Notes * Unknown, Unknown - 02/05/2010 4:28 PM EDT documented in this encounter Plan of Treatment Pending Results Name Type Priority Associated Diagnoses Date /Time CHLAMYDIA/GC PROBE GENITAL Microbiology Routine Contact with or exposure to venereal diseases Routine gynecological examination 02/06/2010 2:57 PM EDT documented as of this encounter Procedures Procedure Name Priority Date/Time Associated Diagnosis Comments CHLAMYDIA/GC PROBE GENITAL SWAB Routine 02/06/2010 2:57 PM EDT Contact with or exposure to venereal diseases Routine gynecological examination .CHL/GC GENITAL RESULTS Routine 02/05/2010 4:[address] FREIGHT CONDUCTOR CYTOLOGY REPORT Routine 02/05/2010 8:53 AM EDT documented in this encounter Results * .CHL/GC GENITAL RESULTS (02/05/2010 4:06 PM EDT) C. trachomatis/N. gonorrhoeae Specimen Genital [facility] Comment: Test methodology is amplified DNA probe using [employer] ??A negative result does not rule out the presence of DNA in concentrations below the level of detection of the assay. The performance characteristics of this test were validated by [facility]. ??This laboratory is authorized under the Clinical Laboratory Improvement Amendments (CLIA) as qualified to perform high-complexity testing. ??Compliance statement is available in the Laboratory. Chlamydia trachomatis Negative [facility] Neisseria gonorrhoeae Negative [facility] Genital 02/05/2010 4:06 PM EDT 02/05/2010 8:33 PM EDT us Bella Richmond MD MICROBIOLOGY - GENERAL ORD ERABLES Edited [facility] [address] [place] [address] * RO[address] FREIGHT CONDUCTOR CYTOLOGY REPORT (02/05/2010 8:53 AM EDT) Race Board Attendant Cytology Report ? PATIENT NAME:BONNY OLIVARES ? Race Board Attendant Cytology Report ? Accession Number ?Collected Date/Time ? Received Date/Time ? [id number] ? 02/05/10 08:53 EDT ?02/06/10 08:53 EDT ? GY Specimen Source ? Specimen Vag/Cerv/Endocx?: Vaginal/Cervical/E ndocervical ? Statement of Adequacy ? Satisfactory for Evaluation. ??Transformation Zone Present. ? Diagnosis ? 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 ? Comment ? The Pap Smear is a screening test that aids in the detection of cervical ? cancer and cancer precursors. ??Both false positive and false negative ? results can occur. ??The test should be used at regular intervals, and ? positive results should be confirmed before definitive therapy. ? Processed using the [employer] automated cytology screening device ? ([employer]). ? Sales Special Agent: HK, DO ?02/13/2010 ? Completed by: ??JENNI JOSUE MD ?(Electronically signed by) ?02/16/2010 ?[facility] 02/05/2010 8:53 AM EDT us Bella Richmond MD PATHOLOGY ORDERABLES Final Result [facility] [address] [place] [address] documented in this encounter Visit Diagnoses Diagnosis Contact with or exposure to venereal diseases Routine gynecological examination documented in this encounter Care Teams Relief Driller Relationship Specialty Start Date End Date Jude Aldrich MD [address] [place] [address] PCP - General 04/16/09 11/30/10 documented as of this encounter
--- OUTSIDE RECORDS SUMMARY | 2024-03-07 05:11 | XMS_ITS | Encounter Summary ---
Author Organization [place] [address] Care Team Providers Care Patternmaker Sample Name Role Phone Unavailable Primary Care Provider Unavailabl e Encounter Details Date Type Department Care Team (Late st Contact Info) Description 08/28/2008 3:55 PM EDT - 08/28/2008 11:59 PM EDT Hospital Encounter [facility] IMAGING [facility] Nehemias Andrade MD [address] [place] [address] Social History Tobacco Use Types Packs/Day Years Used Date Smoking Tobacco: Never Assessed Comments Unknown Sex and Gender Information Value Date Recorded Sex Assigned at Not on file Legal Sex Female 7:55 PM EDT Gender Identity Not on file Sexual Orientation Not on file documented as of this encounter Plan of Treatment Scheduled Orders Name Type Priority Associated Diagnoses Orde r Schedule MR ANKLE W/O KA MRI Imaging Routine Once for 1 Occurrences starting 06/19/2009 until 06/19/2009, 1 completed documented as of this encounter Procedures Procedure Name Priority Date/Time Associated Diagnosis Comments KA MRI ANKLE W/O Routine 08/28/2008 5:00 PM EDT documented in this encounter Results * MR ANKLE W/O KA MRI (08/28/2008 5:00 PM EDT) Anatomical Region Laterality Modality Other 08/28/2008 5:00 PM EDT Narrative 08/29/2008 11:34 AM EDT Left ankle MRI, without contrast- 08/28/2008 Comparison- Left ankle radiographs from 08/14/2008 History- Left ankle sprain, pain and swelling, rule out ligament damage. Technical Factors- Routine MR imaging of the left ankle is performed without contrast. Findings- On axial T2-weighted images, there is some mildly increased intermediate T2 signal at the talar attachment of the anterior talofibular ligament, suggestive of sprain and/or partial tear. There are intact anterior talofibular ligaments anteriorly with no flow full thickness fluid-filled tear identified. The calcaneofibular and posterior talofibular, as well as the tibiofibular ligaments are intact and within normal limits in appearance. ??Visualized musculotendinous structures are also intact. No significant joint effusion identified. No focal bone marrow signal abnormalities are seen. No evidence of talar dome osteochondral lesion. The sinus tarsi and visualized portions of the plantar fascia are intact. Impression- Findings compatible with mild strain and/or partial tear of the anterior talofibular ligament at the talar attachment. No evidence of full thickness tear. ? Seaport Planning Manager- LIZ SIMMS ? Reading Physician- BALAJI BRADLEY M.D. ? Released Date Time- 08/29/08 1545 Procedure Note Balaji Bradley - 06/19/2009 Left ankle MRI, without contrast- 08/28/2008 Comparison- Left ankle radiographs from 08/14/2008 History- Left ankle sprain, pain and swelling, rule out ligament damage. Technical Factors- Routine MR imaging of the left ankle is performed without contrast. Findings- On axial T2-weighted images, there is some mildly increased intermediate T2 signal at the talar attachment of the anterior talofibular ligament, suggestive of sprain and/or partial tear. There are intact anterior talofibular ligaments anteriorly with no flow full thickness fluid-filled tear identified. The calcaneofibular and posterior talofibular, as well as the tibiofibular ligaments are intact and within normal limits in appearance. Visualized musculotendinous structures are also intact. No significant joint effusion identified. No focal bone marrow signal abnormalities are seen. No evidence of talar dome osteochondral lesion. The sinus tarsi and visualized portions of the plantar fascia are intact. Impression- Findings compatible with mild strain and/or partial tear of the anterior talofibular ligament at the talar attachment. No evidence of full thickness tear. Seaport Planning Manager- LIZ Frank Physician- BALAJI BRADLEY M.D. Released Date Time- 08/29/08 1545 Nehemias Barron MD [facility] ina Result documented in this encounter Visit Diagnoses Not on filedocumented in this encounter
--- OUTSIDE RECORDS SUMMARY | 2024-03-07 05:11 | XMS_ITS | Encounter Summary ---
Author Organization [place] [address] Care Team Providers Care Sports Trainer Name Role Phone Jude Aldrich MD Primary Care Provider Encounter Details Date Type Department Care Team (Latest Contact Info) Description 02/05/2010 8:36 AM EDT - 02/05/2010 11:59 PM EDT Hospital Encounter EDG LAB IVORY PROCESSING [facility] [place] [address] Discharge Disposition: Home or Self Care Social [...] estradiol (AVIANE;ALESSE;LE SSINA) 0.1-20 mg-mcg per tabletIndications :Pearl Fisherman exam Take 1 Tab by mouth daily. 30 Tab 12 02/05/2010 12/01/2010 documented as of this encounter Discharge Disposition Disposition Code Departure Means Destination Home or Self Care documented in this encounter Procedure Notes * Unknown, Unknown - 02/06/2010 5:31 AM EDT documented in this encounter Plan of Treatment Not on file documented as of this encounter Visit Diagnoses Not on filedocumented in this encounter Care Teams Sports Trainer Relationship Specialty Start Date End Date Jude Aldrich MD [address] [place] [address] PCP - General 04/16/09 11/30/10 documented as of this encounter
--- OUTSIDE RECORDS SUMMARY | 2024-03-07 05:11 | XMS_ITS | Referral Summary ---
Author Organization [facility] Address [address] [place] [address]- Care Team Providers Care Fire Alarm Mechanic Name Role Phone Ruby Physician Primary Care Physician Sunshine vailable Encounter Date(s): 10/15/19 - 10/15/19 [facility] [address] [place] [address]- [facility] Encounter Diagnosis Mild dehydration(Discharge Diagnosis) - 10/15/19 Discharge Disposition: Home Attending Physician: Andre Canales Referring Physician: Andre Canales Vital Signs Most recent to oldest [Reference Range]: 1 2 Blood Pressure [90-140/60-90 mm-hg] 106/ 53mm-hg (10/15/19 6:19 PM) 102/57mm-hg (10/15/19 1:20 PM) M A P [65-110 mm-hg] 71 mm-hg (10/15/19 6:19 PM) 72 mm-hg (10/15/19 1:20 PM) Peripheral Pulse Rate [60-100 bpm] 76 bp m (10/15/19 6:19 PM) 93 bpm (10/15/19 1:20 PM) Respiratory Rate [14-20 br/min] 18 br/mi n (10/15/19 6:19 PM) 16 br/min (10/15/19 1:20 PM) Height [48-72 in] 65 in (10/15/19 1:20 PM) Weight [80-220 lb] 160 lb (10/15/19 1:20 PM) Problem List Condition Effective Dates Status Health Status Inform ant Seizure(Confirmed) 10/15/19 Active Seizure(Confirmed) 10/10/19 Active Syncope(Confirmed) 10/10/19 Active Allergies, Adverse Reactions, Alerts Substance Reaction Severity Status sulfADIAZINE Active Medications Effexor XR 75 mg oral capsule, extended release 1 tab(s), PO, Daily, 30, 0, ER Capsule, [facility] Start Date: 10/10/19 Status: Ordered trazodone 50 mg oral tablet 50 mg, 1 tab(s), PO, qHS, 30, 0, Tab, [facility] Start Date: 10/10/19 Status: Ordered Results GENERAL CHEMISTRY Most recent to oldest [Reference Range]: 1 Glucose Level [70-110 mg/dL] 103 mg/dL (10/15/19 2:54 PM) Sodium Level [136-148 mmol/L] 140 mmol/L (10/15/19 2:54 PM) Potassium Level [3.8-5.2 mmol/L] 3.8 mmo l/L (10/15/19 2:54 PM) Chloride [98-108 mmol/L] 106 mmol/L (10/15/19 2:54 PM) CO2 [22.3-33.5 mmol/L] 26.6 mmol/L (10/15/19 2:54 PM) BUN [7-22 mg/dL] 15 mg/dL (10/15/19 2:54 PM) Creatinine [0.80-1.50 mg/dL] 0.80 mg/dL (10/15/19 2:54 PM) Calcium [8.7-10.5 mg/dL] 8.3 mg/dL *LOW* (10/15/19 2:54 PM) Total Protein [6.4-8.2 g/dL] 6.8 g/dL (10/15/19 2:54 PM) Albumin Level [3.4-5.0 g/dL] 3.6 g/dL (10/15/19 2:54 PM) Alkaline Phosphatase Lv [46-116 unit/L] 70 unit/L (10/15/19 2:54 PM) ALT [12-78 unit/L] 89 unit/L *HI* (10/15/19 2:54 PM) AST [22-37 unit/L] 33 unit/L (10/15/19 2:54 PM) Bili Total [0.50-1.50 mg/dL] 0.30 mg/dL *LOW* (10/15/19 2:54 PM) EGFR Non -Peruvian [>=60.00 ml/mi n/1.73m2] 101.04 ml/min/1.73m2 (10/15/19 2:54 PM) EGFR -Peruvian [>=60.00 ml/min/1. 73m2] 117.10 ml/min/1.73m2 (10/15/19 2:54 PM) SPECIAL CHEMISTRY Most recent to oldest [Reference Range]: 1 Magnesium [1.8-2.6 mg/dL] 2.3 mg/dL (10/15/19 2:54 PM) CARDIAC STUDIES Most recent to oldest [Reference Range]: 1 Total CK [21-215 unit/L] 91 unit/L (10/15/19 2:54 PM) CBC and Differential Most recent to oldest [Reference Range]: 1 WBC [4.50-11.00 x10-3/mcL] 2.96 x10-3/mc L *LOW* (10/15/19 2:34 PM) RBC [4.20-5.40 x10-6/mcL] 3.84 x10-6/mcL *LOW* (10/15/19 2:34 PM) Hgb [11.5-16.0 g/dL] 11.9 g/dL (10/15/19 2:34 PM) Hct [37.0-47.0 %] 34.7 % *LOW* (10/15/19 2:34 PM) MCV [81.0-99.0 fL] 90.4 fL (10/15/19 2:34 PM) MCH [27.0-37.0 pg] 31.0 pg (10/15/19 2:34 PM) MCHC [33.0-37.0 g/dL] 34.3 g/dL (10/15/19 2:34 PM) RDW [40.0-52.0 fL] 38.5 fL *LOW* (10/15/19 2:34 PM) Platelet [130-450 x10-3/mcL] 175 x10-3/m cL (10/15/19 2:34 PM) Neutro Auto [50-70 %] 38 % *LOW* (10/15/19 2:34 PM) Lymph Auto [25-40 %] 52 % *HI* (10/15/19 2:34 PM) [place] Auto [2-9 %] 8 % (10/15/19 2:34 PM) Eos Auto [2-4 %] 1 % *LOW* (10/15/19 2:34 PM) Basophil Auto [0-1 %] 1 % (10/15/19 2:34 PM) Absolute Neutrophil Count [1.50-7.50 x10 -3/mcL] 1.13 x10-3/mcL *LOW* (10/15/19 2:34 PM) Absolute Lymphocyte Count [1.10-4.40 x10 -3/mcL] 1.53 x10-3/mcL (10/15/19 2:34 PM) Absolute Monocyte Count [0.00-0.80 x10-3 /mcL] 0.25 x10-3/mcL (10/15/19 2:34 PM) Absolute Eosinophil Count [0.15-0.60 x10 -3/mcL] 0.03 x10-3/mcL *LOW* (10/15/19 2:34 PM) Absolute Basophil Count [0.02-0.05 x10-3 /mcL] 0.02 x10-3/mcL (10/15/19 2:34 PM) Urinalysis Most recent to oldest [Reference Range]: 1 UA Color [YELLOW] YELLOW (10/15/19 3:01 PM) UA Appearance [CLEAR] CLEAR (10/15/19 3:01 PM) UA pH 6.0 *NA* (10/15/19 3:01 PM) UA Specific [place] 1.025 (10/15/19 3:01 PM) UA Glucose [NEGATIVE mg/dL] NEGATIVE mg/ dL (10/15/19 3:01 PM) UA Protein NEGATIVE mg/dL (10/15/19 3:01 PM) UA Ketones NEGATIVE mg/dL (10/15/19 3:01 PM) UA Urobilinogen [0.2] 1.0 *ABN* (10/15/19 3:01 PM) UA Bilirubin NEGATIVE mg/dL (10/15/19 3:01 PM) UA Blood [NEGATIVE /mcL] NEGATIVE /mcL (10/15/19 3:01 PM) UA Nitrite [NEGATIVE] NEGATIVE (10/15/19 3:01 PM) UA Leukocyte Esterase NEGATIVE /mcL (10/15/19 3:01 PM) Social History Social History Type Response Smoking Status Current every day marj charlton Assessment and Plan Extracted from: Title:Dizziness Author:Andre Canales Date:10/14 Impression and Plan mild dehydration Plan Condition: Improved. Disposition: Discharged: to home. Follow up with: Return to Emergency Department, Primary Care Physician. Counseled: Patient, Regarding diagnostic results, Regarding treatment plan. Hospital Discharge Instructions Follow Up Care 10/15/2019 13:19:23 With:Return to Emergency Department Address:Unknown When:Unknown With:Follow up with primary care provider Address:Unknown When:Unknown
--- OUTSIDE RECORDS SUMMARY | 2024-03-07 05:11 | XMS_ITS | Encounter Summary ---
Author Organization [place] [address] Care Team Providers Care Hot Cell Technician Name Role Phone Jude Aldrich MD Primary Care Provider Reason for Visit * Reason Onset Date Comments Referral 02/23/2010 Encounter Details Date Type Department Care Team ([facility] Contact Info) Description 02/23/2010 Telephone [facility] [address] [facility] [place] [address] Ginger Raya MA Referral Social History Tobacco Use Types Packs/Day Years [...] encounter Miscellaneous Notes * Telephone Encounter - Ginger Giron - 02/23/2010 11:21 AM EST Bonny notified of results and referral to On[facility] Transplant [facility] Manager-she requested information so she could call & schedule- approved Dr. Janel Lindsay [address] [facility], [address] [phone]-faxed pap results to Dr. Lindsay documented in this encounter Plan of Treatment Not on file documented as of this encounter Visit Diagnoses Not on filedocumented in this encounter Care Teams Hot Cell Technician Relationship Specialty Start Date End Date Jude Aldrich MD [address] [place] [address] PCP - General 04/16/09 11/30/10 documented as of this encounter
--- OUTSIDE RECORDS SUMMARY | 2024-03-07 05:11 | XMS_ITS | Referral Summary ---
Author Organization [facility] Address [address] [place] [address]- Care Team Providers Care Blind Cleaner Name Role Phone Ruby, Physician Primary Care Physician Sunshine vailable Encounter Date(s): 10/27/19 - 10/27/19 [facility] [address] [place] [address]- [facility] Encounter Diagnosis Seizure(Discharge Diagnosis) - 10/27/19 Discharge Disposition: Home Attending Physician: Ambrose Tarango Referring Physician: Ambrose Tarango Vital Signs Most recent to oldest [Reference Range]: 1 2 Blood Pressure [90-140/60-90 mm-hg] 138/ 62mm-hg (10/27/19 3:25 PM) 140/60mm-hg (10/27/19 1:27 PM) M A P [65-110 mm-hg] 87 mm-hg (10/27/19 3:25 PM) 87 mm-hg (10/27/19 1:27 PM) Temperature Tympanic [97.9-100.6 DegF] 9 8.2 DegF (10/27/19 1:27 PM) Peripheral Pulse Rate [60-100 bpm] 96 bp m (10/27/19 3:25 PM) 108 bpm *HI* (10/27/19 1:27 PM) Respiratory Rate [14-20 br/min] 18 br/mi n (10/27/19 3:25 PM) 18 br/min (10/27/19 1:27 PM) Height [48-72 in] 66 in (10/27/19 1:27 PM) Weight [80-220 lb] 165 lb (10/27/19 1:27 PM) Problem List Condition Effective Dates Status Health Status Inform ant Seizure(Confirmed) 10/27/19 Active Seizure(Confirmed) 10/15/19 Active Seizure(Confirmed) 10/10/19 Active Syncope(Confirmed) 10/10/19 Active Allergies, Adverse Reactions, Alerts Substance Reaction Severity Status sulfADIAZINE Active Medications Effexor XR 75 mg oral capsule, extended release 1 tab(s), PO, Daily, 30, 0, ER Capsule, [facility] Start Date: 10/10/19 Status: Ordered trazodone 50 mg oral tablet 50 mg, 1 tab(s), PO, qHS, 30, 0, Tab, [facility] Start Date: 10/10/19 Status: Ordered Results GENERAL CHEMISTRY Most recent to oldest [Reference Range]: 1 Glucose Level [70-110 mg/dL] 75 mg/dL (10/27/19 2:51 PM) Sodium Level [136-148 mmol/L] 136 mmol/L (10/27/19 2:51 PM) Potassium Level [3.8-5.2 mmol/L] 4.2 mmo l/L (10/27/19 2:51 PM) Chloride [98-108 mmol/L] 104 mmol/L (10/27/19 2:51 PM) CO2 [22.3-33.5 mmol/L] 27.2 mmol/L (10/27/19 2:51 PM) BUN [7-22 mg/dL] 13 mg/dL (10/27/19 2:51 PM) Creatinine [0.80-1.50 mg/dL] 1.03 mg/dL (10/27/19 2:51 PM) Calcium [8.7-10.5 mg/dL] 8.6 mg/dL *LOW* (10/27/19 2:51 PM) Total Protein [6.4-8.2 g/dL] 7.9 g/dL (10/27/19 2:51 PM) Albumin Level [3.4-5.0 g/dL] 4.3 g/dL (10/27/19 2:51 PM) Alkaline Phosphatase Lv [46-116 unit/L] 78 unit/L (10/27/19 2:51 PM) ALT [12-78 unit/L] 77 unit/L (10/27/19 2:51 PM) AST [22-37 unit/L] 36 unit/L (10/27/19 2:51 PM) Bili Total [0.50-1.50 mg/dL] 0.40 mg/dL *LOW* (10/27/19 2:51 PM) EGFR Non -Malagasy [>=60.00 ml/mi n/1.73m2] 74.44 ml/min/1.73m2 (10/27/19 2:51 PM) EGFR -Malagasy [>=60.00 ml/min/1. 73m2] 86.27 ml/min/1.73m2 (10/27/19 2:51 PM) SPECIAL CHEMISTRY Most recent to oldest [Reference Range]: 1 Hemoglobin A1c [4.2-6.3 %] 4.8 % (10/27/19 2:44 PM) CORONARY RISK STUDIES Most recent to oldest [Reference Range]: 1 Cholesterol [100-199 mg/dL] 141 mg/dL (10/27/19 2:51 PM) Triglycerides [20-200 mg/dL] 43 mg/dL (10/27/19 2:51 PM) HDL [0-55 mg/dL] 49 mg/dL (10/27/19 2:51 PM) LDL, calculated [0-159 mg/dL] 83 mg/dL (10/27/19 2:51 PM) CARDIAC STUDIES Most recent to oldest [Reference Range]: 1 NT- Pro BNP [0.0-450.0 pg/mL] 52.0 pg/mL (10/27/19 3:06 PM) Troponin I [0.000-0.056 ng/mL] <0.017 ng /mL (10/27/19 2:56 PM) LABORATORY Most recent to oldest [Reference Range]: 1 Alcohol, Blood [<=3 mg/dL] <3 mg/dL (10/27/19 2:48 PM) Beta hCG Ql [Negative] Negative (10/27/19 2:52 PM) Social History Social History Type Response Smoking Status Never smoker Assessment and Plan Extracted from: Title:Seizure Author:Ambrose Tarango Date:10/26 Impression and Plan seizure Plan Condition: Improved, Stable. Disposition: Discharged: to home. Notes: pt refused ct of head. Physician coding level Level V Hospital Discharge Instructions Patient Education Seizures Discharge Instructions Follow Up Care 10/27/2019 13:27:21 With:Follow up with primary care provider Address:Unknown When:10/30/2019 15:11:53
--- OUTSIDE RECORDS SUMMARY | 2024-03-07 05:11 | XMS_ITS | Encounter Summary ---
Author Organization [place] [address] Care Team Providers Care Bedspread Inspector Name Role Phone Jude Aldrich MD Primary Care Provider Encounter Details Date Type Department Care Team (Late st Contact Info) Description 04/25/2009 6:30 AM EST - 04/25/2009 11:59 PM EST Hospital Encounter [facility] EPIC [...] on filedocumented in this encounter Care Teams Bedspread Inspector Relationship Specialty Start Date End Date Jude Aldrich MD [address] [place] [address] PCP - General 04/16/09 11/30/10 documented as of this encounter
--- OUTSIDE RECORDS SUMMARY | 2024-03-07 05:11 | XMS_ITS | Encounter Summary ---
Author Organization [place] [address] Care Team Providers Care Protection Manager Name Role Phone Jude Aldrich MD Primary Care Provider Reason for Visit * Reason Onset Date Comments Other 03/09/2010 Encounter Details Date Type Department Care Team (Late st Contact Info) Description 03/09/2010 Telephone [facility] [address] [facility] [address] Jude Aldrich MD [address] [place] [address] Other Social History Tobacco Use [...] Telephone Encounter - Mallorie Gee MA - 03/09/2010 3:[address] ANDERSNO, REGIONAL LOSS PREVENTION MANAGER, OFFICE CALLED: WE HAVE TO ACTUALLY CALL HER OFFICE AND SCHEDULE APPT FOR PATIENT. documented in this encounter Plan of Treatment Not on file documented as of this encounter Visit Diagnoses Not on filedocumented in this encounter Care Teams Protection Manager Relationship Specialty Start Date End Date Jude Aldrich MD [address] [facility] [place] [address] PCP - General 04/16/09 11/30/10 documented as of this encounter
--- OUTSIDE RECORDS SUMMARY | 2024-03-07 05:11 | XMS_ITS | Referral Summary ---
Author Organization [facility] Address [address] [place] [address]- Care Team Providers Care Filling Separator Name Role Phone Ruby, Physician Primary Care Physician Sunshine vailable Encounter Date(s): 10/10/19 - 10/10/19 [facility] [address] [place] [address]- [facility] Discharge Disposition: To Other Acute Care Attending Physician: Ambrose Tarango Referring Physician: Ambrose Tarango Vital Signs Most recent to oldest [Reference Range]: 1 2 3 Blood Pressure [90-140/60-90 mm-hg] 109/54mm-hg (10/10/19 5:57 PM) 109/55mm-hg (10/10/19 5:11 PM) 109/65mm-hg (10/10/19 4:35 PM) M A P [65-110 mm-hg] 72 mm-hg (10/10/19 5:57 PM) 80 mm-hg (10/10/19 4:35 PM) 90 mm-hg (10/10/19 3:50 PM) Temperature Tympanic [97.9-100.6 DegF] 98.6 DegF (10/10/19 1:42 PM) Peripheral Pulse Rate [60-100 bpm] 74 bpm (10/10/19 5:11 PM) 74 bpm (10/10/19 4:35 PM) 75 bpm (10/10/19 3:50 PM) Respiratory Rate [14-20 br/min] 16 br/min (10/10/19 1:42 PM) Height [48-72 in] 65 in (10/10/19 1:42 PM) Weight [80-220 lb] 160 lb (10/10/19 1:42 PM) Problem List Condition Effective Dates Status Health Status Inform ant Seizure(Confirmed) 10/10/19 Active Syncope(Confirmed) 10/10/19 Active Allergies, Adverse Reactions, Alerts Substance Reaction Severity Status sulfADIAZINE Active Medications Effexor XR 75 mg oral capsule, extended release 1 tab(s), PO, Daily, 30, 0, ER Capsule, [facility] Start Date: 10/10/19 Status: Ordered trazodone 50 mg oral tablet 50 mg, 1 tab(s), PO, qHS, 30, 0, Tab, [facility] Start Date: 10/10/19 Status: Ordered Results GENERAL CHEMISTRY Most recent to [facility] [Reference Range]: 1 Glucose Level [70-110 mg/dL] 95 mg/dL (10/10/19 2:31 PM) Sodium Level [136-148 mmol/L] 137 mmol/L (10/10/19 2:31 PM) Potassium Level [3.8-5.2 mmol/L] 3.9 mmo l/L (10/10/19 2:31 PM) Chloride [98-108 mmol/L] 103 mmol/L (10/10/19 2:31 PM) CO2 [22.3-33.5 mmol/L] 29.8 mmol/L (10/10/19 2:31 PM) BUN [7-22 mg/dL] 12 mg/dL (10/10/19 2:31 PM) Creatinine [0.80-1.50 mg/dL] 0.82 mg/dL (10/10/19 2:31 PM) Calcium [8.7-10.5 mg/dL] 8.7 mg/dL (10/10/19 2:31 PM) Total Protein [6.4-8.2 g/dL] 7.0 g/dL (10/10/19 2:31 PM) Albumin Level [3.4-5.0 g/dL] 3.9 g/dL (10/10/19 2:31 PM) Alkaline Phosphatase Lv [46-116 unit/L] 71 unit/L (10/10/19 2:31 PM) ALT [12-78 unit/L] 115 unit/L *HI* (10/10/19 2:31 PM) AST [22-37 unit/L] 46 unit/L *HI* (10/10/19 2:31 PM) Bili Total [0.50-1.50 mg/dL] 0.50 mg/dL (10/10/19 2:31 PM) EGFR Non -Northern Irish [>=60.00 ml/mi n/1.73m2] 98.07 ml/min/1.73m2 (10/10/19 2:31 PM) EGFR -Northern Irish [>=60.00 ml/min/1. 73m2] 113.66 ml/min/1.73m2 (10/10/19 2:31 PM) SPECIAL CHEMISTRY Most recent to oldest [Reference Range]: 1 Hemoglobin A1c [4.2-6.3 %] 5.0 % (10/10/19 2:31 PM) CORONARY RISK STUDIES Most recent to oldest [Reference Range]: 1 Cholesterol [100-199 mg/dL] 139 mg/dL (10/10/19 2:31 PM) Triglycerides [20-200 mg/dL] 54 mg/dL (10/10/19 2:31 PM) HDL [0-55 mg/dL] 50 mg/dL (10/10/19 2:31 PM) LDL, calculated [0-159 mg/dL] 78 mg/dL (10/10/19 2:31 PM) CARDIAC STUDIES Most recent to oldest [Reference Range]: 1 NT- Pro BNP [0.0-450.0 pg/mL] 21.0 pg/mL (10/10/19 2:31 PM) Troponin I [0.000-0.056 ng/mL] <0.017 ng /mL (10/10/19 2:31 PM) CBC and Differential Most recent to oldest [Reference Range]: 1 WBC [4.50-11.00 x10-3/mcL] 3.43 x10-3/mc L *LOW* (10/10/19 2:31 PM) RBC [4.20-5.40 x10-6/mcL] 4.09 x10-6/mcL *LOW* (10/10/19 2:31 PM) Hgb [11.5-16.0 g/dL] 12.7 g/dL (10/10/19 2:31 PM) Hct [37.0-47.0 %] 37.4 % (10/10/19 2:31 PM) MCV [81.0-99.0 fL] 91.4 fL (10/10/19 2:31 PM) MCH [27.0-37.0 pg] 31.1 pg (10/10/19 2:31 PM) MCHC [33.0-37.0 g/dL] 34.0 g/dL (10/10/19 2:31 PM) RDW [40.0-52.0 fL] 39.6 fL *LOW* (10/10/19 2:31 PM) Platelet [130-450 x10-3/mcL] 176 x10-3/m cL (10/10/19 2:31 PM) Neutro Auto [50-70 %] 50 % (10/10/19 2:31 PM) Lymph Auto [25-40 %] 40 % (10/10/19 2:31 PM) [place] Auto [2-9 %] 9 % (10/10/19 2:31 PM) Eos Auto [2-4 %] 1 % *LOW* (10/10/19 2:31 PM) Basophil Auto [0-1 %] 0 % (10/10/19 2:31 PM) Absolute Neutrophil Count [1.50-7.50 x10 -3/mcL] 1.72 x10-3/mcL (10/10/19 2:31 PM) Absolute Lymphocyte Count [1.10-4.40 x10 -3/mcL] 1.37 x10-3/mcL (10/10/19 2:31 PM) Absolute Monocyte Count [0.00-0.80 x10-3 /mcL] 0.30 x10-3/mcL (10/10/19 2:31 PM) Absolute Eosinophil Count [0.15-0.60 x10 -3/mcL] 0.03 x10-3/mcL *LOW* (10/10/19 2:31 PM) Absolute Basophil Count [0.02-0.05 x10-3 /mcL] 0.01 x10-3/mcL *LOW* (10/10/19 2:31 PM) LABORATORY Most recent to oldest [Reference Range]: 1 Alcohol, Blood [<=3 mg/dL] <3 mg/dL (10/10/19 2:31 PM) Social History Social History Type Response Smoking Status Current every day marj charlton Assessment and Plan Extracted from: Title:Seizure Author:Ambrose Tarango Date: Impression and Plan Seizure /new onset Plan Condition: Stabilized but remains critical. Disposition: Transfer to: Time 10/10/19 15:05:00, [facility]. Follow up with: Primary Care Physician. Physician coding level Level V
--- OUTSIDE RECORDS SUMMARY | 2024-03-07 05:11 | XMS_ITS | Encounter Summary ---
Author Organization [place] [address] Care Team Providers Care Sheet Finisher Name Role Phone Jude Aldrich MD Primary Care Provider Reason for Visit * Reason Onset Date Comments Referral 03/17/2010 Encounter Details Date Type Department Care Team (Late st Contact Info) Description 03/17/2010 Telephone [facility] [address] [facility] [place] [address] Ginger Raya MA Referral Social [...] * Telephone Encounter - Ginger Giron - 04/13/2010 3:[address] Lindsay's lye bath operator called today-Scheduled Bonny for 04/22/10 @ 1pm and she notified Bonny * Telephone Encounter - Ginger Giron - 03/17/2010 5:39 PM EST Left message that we wanted to schedule a new patient with Dr. Lindsay-her lye bath operator will call back documented in this encounter Plan of Treatment Not on file documented as of this encounter Visit Diagnoses Not on filedocumented in this encounter Care Teams Sheet Finisher Relationship Specialty Start Date End Date Jude Aldrich MD [address] [place] [address] PCP - General 04/16/09 11/30/10 documented as of this encounter
--- OUTSIDE RECORDS SUMMARY | 2024-03-07 05:11 | XMS_ITS | Encounter Summary ---
Author Organization [place] [address] Care Team Providers Care Merchandise Presentation Associate Name Role Phone Jude Aldrich MD Primary Care Provider Reason for Visit * Reason Comments Knee Pain left Encounter Details Date Type Department Care Team (Late st Contact Info) Description 01/26/2010 9:27 AM EDT - 01/26/2010 10:42 AM EDT [facility] [address] [facility] [place] [address] Robson Martinez, DO [address] [place] [address] Strain of left knee and leg Discharge Disposition: Home or Self Care Social [...] Sign Reading Time Taken Comments Blood Pressure 107/64 01/26/2010 9:38 AM EDT Pulse 84 01/26/2010 9:38 AM EDT Temperature 36.9 ??C (98.4 ??F) 01/26/2010 9:38 AM ED T Respiratory Rate 16 01/26/2010 9:38 AM EDT Oxygen Saturation 100% 01/26/2010 9:38 AM EDT Inhaled Oxygen Concentration - - Weight - - Height 165.1 cm (5' 5 ) 01/26/2010 9:38 AM EDT Body Mass Index - - documented in this encounter Discharge Instructions * Discharge Instructions* Robson Martinez DO - 01/26/2010 10:15 AM EDT Maximiliano wrap for 2-3 days. Start Motrin. Vicodin for pain. No sports. NO gym. documented in this encounter Medications at Time of Discharge hydrocodone-aceta minophen (VICODIN) 5-500 mg per tablet Take 1 Tab by mouth every 4 hours as needed for Pain for 7 days. 15 Tab 0 01/26/2010 02/02/2010 ibuprofen (ADVIL;MOTRIN) 800 mg Take 1 Tab by mouth 3 times daily. 15 Tab 0 01/26/2010 12/01/2010 documented as of this encounter Ordered Prescriptions Prescription Sig Dispense Quantity Refills Last Filled Start Date End Date hydrocodone-acetam inophen (VICODIN) 5-500 mg per tablet Take 1 Tab by mouth every 4 hours as needed for Pain for 7 days. 15 Tab 0 01/26/2010 02/02/2010 ibuprofen (ADVIL;MOTRIN) 800 mg Take 1 Tab by mouth 3 times daily. 15 Tab 0 01/26/2010 12/01/2010 documented in this encounter Discharge Disposition Disposition Code Departure Means Destination Home or Self Care documented in this encounter Progress Notes * Unknown, Unknown - 01/26/2010 5:23 AM EDT * Unknown, Unknown - 01/26/2010 5:23 AM EDT documented in this encounter Nursing Notes * Unknown, Unknown - 01/27/2010 4:45 AM EDT documented in this encounter ED Notes * Shon Wilson - 01/26/2010 10:41 AM EDT Pt discharged from ER. Pt left ambulatory. Prescriptions given: Yes. Discharge instructions given to patient and grandmother. patient and grandmother verbalize understanding of prescriptions and discharge instructions. * Robson Martinez DO - 01/26/2010 9:43 AM EDT Chief Complaint Patient presents with ??? Knee Pain left HPI Comments: Patient claims of pain to her knee. His left knee. No history of fall. She's had thisfor quite a while. No recent trauma. She does play sports. I can see where she's had an x-ray of his knee based on old charts The history is provided by the patient. Allergies Allergen Reactions ??? Sulfa (Sulfonamide Antibiotics) Home Medications: Prior to Admission medications Not on File Past Medical History: No past medical history on file. Social History: Family History: No family history on file. Surgical History: No past surgical history on file. Review of Systems Constitutional: Negative. HENT: Negative. Eyes: Negative. Respiratory: Negative. Musculoskeletal: Positive for joint swelling. Blood pressure 107/64, pulse 84, temperature 98.4 ??F (36.9 ??C), temperature source Oral, resp. rate 16, height 5' 5 (1.651 m), last menstrual period 01/05/2010, SpO2 100%. Physical Exam Constitutional: She is oriented. She appears well-developed and well-nourished. HENT: Head: Normocephalic. Eyes: Pupils are equal, round, and reactive to light. Neck: Normal range of motion. Musculoskeletal: The patient has pain to the left knee. Minimal edema. No gross laxity. No drawer test. Neurovascular is intact. She does have pain with palpation and motion Neurological: She is alert and oriented. She has normal reflexes. Procedures Radiology/EKG/Labs: No fracture noted on the x-ray ED Course: Appropriate laboratory and radiology studies reviewed Maximiliano wrap ED Clinical Impression: Strain left knee Condition at Discharge/Transfer from Department: Stable Robson Martinez DO 01/26/10 1014 Robson Martinez DO 01/26/10 1014 * Shon Wilson - 01/26/2010 9:40 AM EDT Pt arrived per private transportation with grandmother. Pt reports history of left knee problems since age 14. History of seeing orthopedic MD last year. Pt reports recent left knee pain worsening over past 2 weeks. Possible injured Jan 13 playing football. documented in this encounter Plan of Treatment Not on file documented as of this encounter Procedures Procedure Name Priority Date/Time Associated Diagnosis Comments XR KNEE LEFT AP LATERAL AND AXIAL RAMOS 01/26/2010 10:15 AM EDT documented in this encounter Results * XR KNEE LEFT AP LATERAL AND AXIAL (01/26/2010 10:15 AM EDT) Anatomical Region Laterality Modality Knee Radiographic Jerri ging 01/26/2010 9:46 AM EDT Impressions 01/26/2010 10:55 AM EDT IMPRESSION: ??Negative exam. Narrative 01/26/2010 10:55 AM EDT Four view left knee, 01/26/2010. INDICATION: Pain No fracture or significant bony abnormality is identified. Procedure Note Tee Zhong - 01/26/2010 Four view left knee, 01/26/2010. INDICATION: Pain No fracture or significant bony abnormality is identified. IMPRESSION: Negative exam. Robson Martinez DO IMG DIAGNOSTIC IMAGING ORDERABL ES Final Result documented in this encounter Visit Diagnoses Diagnosis Strain of left knee and leg Sprain and strain of unspecified site of knee and leg documented in this encounter Administered Medications Inactive Administered Medications - up to 1 most recent administrations Medication Order MAR Action Action Date Dose Rate Site ibuprofen (ADVIL;MOTRIN) tablet 800 mg 800 mg, Oral, ONCE, 1 dose, On 01/26/10 at 1030 Given 01/26/2010 10:30 AM EDT 800 mg documented in this encounter Discontinued Medications Medication Sig Discontinue Reason Start Date End Da te acyclovir (ZOVIRAX) 400 mg tabletIndications:Stoma titis Take 1 Tab by mouth 4 times daily. DELETE-Therapy completed 06/27/2009 01/26/2010 documented as of this encounter Active and Recently Administered Medications Times are shown in EDT. Scheduled Medication Order 01/24/2010 01/25/2010 01/26/2010 ibuprofen (ADVIL;MOTRIN) tablet 800 mg (COMPLETED) 800 mg, Oral, ONCE, 1 dose, On 01/26/10 at 1030 1030 (Given - Provid er: Shon Wilson) documented in this encounter Orders Nursing Count Last Ordered Date First Orde red Date MAXIMILIANO WRAP 1 01/26/2010 documented in this encounter Care Teams Merchandise Presentation Associate Relationship Specialty Start Date End Date Jude Aldrich MD [address] [place] [address] PCP - General 04/16/09 11/30/10 documented as of this encounter
--- OUTSIDE RECORDS SUMMARY | 2024-03-07 05:11 | XMS_ITS | Encounter Summary ---
Author Organization [place] [address] Care Team Providers Care Computational Sciences Professor Name Role Phone Unavailable Primary Care Provider Unavailabl e Encounter Details Date Type Department Care Team (Late st Contact Info) Description 08/21/2008 5:53 PM EDT - 08/21/2008 7:22 PM EDT Hospital Encounter [facility] Robson Bates, DO [address] [place] [address] Social History Tobacco Use Types Packs/Day [...] Priority Associated Diagnoses Orde r Schedule XR SHOULDER GC Imaging Routine Once for 1 Occurrences starting 06/19/2009 until 06/19/2009, 1 completed documented as of this encounter Procedures Procedure Name Priority Date/Time Associated Diagnosis Comments GC XX SHOULDER Routine 08/21/2008 6:45 PM EDT documented in this encounter Results * XR SHOULDER GC (08/21/2008 6:45 PM EDT) Anatomical Region Laterality Modality Other 08/21/2008 6:45 PM EDT Narrative 08/21/2008 7:25 PM EDT Right shoulder 3 views 08/21/2008 History- Fall, pain. No fracture or osseous abnormality seen. ? Air Technician- RADHA HERNANDEZ ? Reading Physician- IGNACIA BOCANEGRA ??MD ? Released Date Time- 08/21/081938 Procedure Note Ignacia Bocanegra W - 06/19/2009 Right shoulder 3 views 08/21/2008 History- Fall, pain. No fracture or osseous abnormality seen. Air Technician- RADHA Frank PhysicianIsaiah BOCANEGRA MD Released Date Time- 08/21/081938 us Robson Bates DO [facility] F inal Result documented in this encounter Visit Diagnoses Not on filedocumented in this encounter
--- OUTSIDE RECORDS SUMMARY | 2024-03-07 05:11 | XMS_ITS | Encounter Summary ---
Author Organization [place] [address] Care Team Providers Care Senior Qc Technician Name Role Phone Unavailable Primary Care Provider Unavailabl e Encounter Details Date Type Department Care Team (Late st Contact Info) Description 01/18/2009 3:25 PM EDT - 01/18/2009 4:28 PM EDT Hospital Encounter [facility] EP[facility] Edmund Blackwell MD [address] [place] [id number] Generic, Historical Provider Social History Tobacco Use Types Packs/Day Years [...]
--- OUTSIDE RECORDS SUMMARY | 2024-03-07 05:11 | XMS_ITS | Encounter Summary ---
Author Organization [place] [address] Care Team Providers Care Field Service Tech Name Role Phone Unavailable Primary Care Provider Unavailabl e Encounter Details Date Type Department Care Team (Late st Contact Info) Description 01/16/2009 5:07 PM EDT - 01/16/2009 10:17 PM EDT Hospital Encounter [facility]ST ER [facility] Carlos Ovalle MD [address] [place] [phone] Social History Tobacco Use Types Packs/Day [...] Procedure Name Priority Date/Time Associated Diagnosis Comments BETA HCG QUALITATIVE KIT TEST, URINE Routine 01/16/2009 9:50 PM EDT documented in this encounter Results * BETA HUMAN CHORIONIC GONADOTROPIN QUALITATIVE (01/16/2009 9:50 PM EDT) Beta hCG Qual Negative Negative [facility] URINE SPECIMEN COLLECTION / Unknown 01/16/2009 9:50 PM EDT 01/16/2009 9:50 PM EDT Narrative [facility] - 01/16/2009 9:56 PM EDT AKA:BETA HCG QUALITATIVE, URINE: us Niyah Madera MD CHEMISTRY ORDERABLES Final Resul t [facility] [address] [facility] [place] [address] [facility] documented in this encounter Visit Diagnoses Not on filedocumented in this encounter
--- OUTSIDE RECORDS SUMMARY | 2024-03-07 05:11 | XMS_ITS | Encounter Summary ---
Author Organization [place] [address] Care Team Providers Care Armature Winder Repair Helper Name Role Phone Unavailable Primary Care Provider Unavailabl e Encounter Details Date Type Department Care Team (Late st Contact Info) Description 07/01/2008 8:28 PM EDT - 07/01/2008 10:08 PM EDT Hospital Encounter [facility]ST EPIC CON UNK GRT Edmund Oneil MD [address] [place] [address] [place] [address] Social History Tobacco Use Types Packs/Day Years [...] Associated Diagnosis Comments GC XX ANKLE Routine 07/01/2008 9:19 PM EDT documented in this encounter Results * XR ANKLE GC (07/01/2008 9:19 PM EDT) Anatomical Region Laterality Modality Other 07/01/2008 9:19 PM EDT Narrative 07/02/2008 3:29 AM EDT Three view left ankle- 07/01/2008. Indication- Lobjpib-pnkv-haw female with injury. Findings- No focal cortical disruptions or fractured planes observed. Growth plates are fused. Mortise joint appears grossly normal. No localized ankle soft tissue swelling. Small os trigonum noted. Impression- 1. Negative exam. ? Coke Production Heater- ALICIA LANE ? Reading Physician- DENISE PAL ??MD. ? Released Date Time- 07/02/08424 Procedure Note Denise Pal - 06/19/2009 Three view left ankle- 07/01/2008. Indication- Oohhbmu-orzw-jdt female with injury. Findings- No focal cortical disruptions or fractured planes observed. Growth plates are fused. Mortise joint appears grossly normal. No localized ankle soft tissue swelling. Small os trigonum noted. Impression- 1. Negative exam. Coke Production Heater- ALICIA LANE Reading Physician- DENISE PAL MD. Released Date Time- 07/02/08424 Edmund Oneil MD [facility] al Result documented in this encounter Visit Diagnoses Not on filedocumented in this encounter
--- OUTSIDE RECORDS SUMMARY | 2024-03-07 05:11 | XMS_ITS | Encounter Summary ---
Author Organization [place] [address] Care Team Providers Care Ore Dryer Name Role Phone Jude Aldrich MD Primary Care Provider Reason for Visit * Reason Comments Mouth Lesions x 1wk, on magic mout h wash from er Encounter Details Date Type Department Care Team (Late Contact Info) Description 06/27/2009 3:00 PM EDT Office Visit [facility] [address] [facility] [address] Jude Aldrich MD [address] [place] [address] Stomatitis; Tooth pain Social History Tobacco Use Types Packs/Day Years Used Date Smoking Tobacco: Never Assessed Comments No Sex and Gender Information Value Date Recorded Sex Assigned at Not on file Legal Sex Female 7:55 PM EDT Gender Identity Not on file Sexual Orientation Not on file documented as of this encounter Last Filed Vital Signs Vital Sign Reading Time Taken Comments Blood Pressure 112/72 06/27/2009 2:48 PM EDT Pulse 100 06/27/2009 2:48 PM EDT Temperature 37 ??C (98.6 ??F) 06/27/2009 2:48 PM EDT Respiratory Rate - - Oxygen Saturation - - Inhaled Oxygen Concentration - - Weight 57.9 kg (127 lb 9.6 oz) 06/27/2009 2:48 P M EDT Height - - Body Mass Index - - documented in this encounter Ordered Prescriptions Prescription Sig Dispense Quantity Refills Last Filled Start Date End Date acyclovir (ZOVIRAX) 400 mg tabletIndications:S tomatitis Take 1 Tab by mouth 4 times daily. 28 Tab 0 06/27/2009 01/26/2010 documented in this encounter Progress Notes * Jude Aldrich MD - 06/27/2009 3:00 PM EDT Subjective: Patient ID: BONNY OLIVARES is a 18 y.o. female. HPI Sores in mouth for over a week. Seen at [facility] ER 5 days ago Magic Mouthwash without improvement. prob a little worse, bleeds a little to. Patient's medications, allergies, past medical, surgical, social and family histories were reviewedand updated as appropriate. Review of Systems Constitutional: Positive for chills. Negative for fever and fatigue. HENT: Positive for ear pain (occ radiates ot ears), sore throat, mouth sores and trouble swallowing. Musculoskeletal: Positive for myalgias and arthralgias. Objective: Physical Exam Vitals reviewed. Constitutional: She appears well-developed and well-nourished. No distress. HENT: Scabbed lesions on upper and lower lips. Swollen gingiva over 3rd lower molar area bilaterally with slight bleeding. Lower 2nd molars tenderto light percussion. Assessment and Plan: Bonny was seen today for mouth lesions. Diagnoses and associated orders for this visit: - Stomatitis - Acyclovir 400 mg oral tab -- Take 1 Tab by mouth 4 times daily. - Tooth pain - No associated orders Follow up with Dentist Home bound form documented in this encounter Miscellaneous Notes * Patient Instructions - Jude Aldrich MD - 06/27/2009 3:07 PM EDT See dentist documented in this encounter Plan of Treatment Not on file documented as of this encounter Visit Diagnoses Diagnosis Stomatitis Stomatitis and mucositis, unspecified Tooth pain Unspecified disorder of the teeth and supporting structures documented in this encounter Care Teams Ore Dryer Relationship Specialty Start Date End Date Jude Aldrich MD [address] [place] [address] PCP - General 04/16/09 11/30/10 documented as of this encounter
--- OUTSIDE RECORDS SUMMARY | 2024-03-07 05:11 | XMS_ITS | Encounter Summary ---
Author Organization [place] [address] Care Team Providers Care Potato Loader Name Role Phone Jude Aldrich MD Primary Care Provider Reason for Visit * Reason Comments Head Lice Amenorrhea Encounter Details Date Type Department Care Team (Latest Contact Info) Description 11/20/2010 4:10 PM EDT Office Visit [facility] [address] [facility] [place] [address] Nehemias Barron MD [address] [place] [address] Amenorrhea (Primary Dx); Head lice; Social History Tobacco Use Types Packs/Day Years [...] Reading Time Taken Comments Blood Pressure 100/60 11/20/2010 4:00 PM EDT Pulse 60 11/20/2010 4:00 PM EDT Temperature 36.8 ??C (98.3 ??F) 11/20/2010 4:00 PM ED T Respiratory Rate - - Oxygen Saturation - - Inhaled Oxygen Concentration - - Weight 61.8 kg (136 lb 3.2 oz) 11/20/2010 4:00 P M EDT Height - - Body Mass Index - - documented in this encounter Ordered Prescriptions Prescription Sig Dispense Quantity Refills Last Filled Start Date End Date [id number] cb&asp s-ED-zwz-fish 40-10-1-300 mg CapIndications:Pr egnancy Take 1 Cap by mouth daily. 90 Cap 3 11/20/2010 1 malathion (OVIDE) 0.5 %Indications:Head lice Apply topically See Admin Instructions for 30 days. See admin instructions. 1 Bottle 0 11/20/2010 1 documented in this encounter Progress Notes * Nehemias Barron MD - 11/20/2010 4:18 PM EDT Subjective: Patient ID: BONNY OLIVARES is a 20 y.o. female. HPI Head lice after being in [facility] over summer No period since 10/05 Patient's medications, allergies, past medical, surgical, social and family histories were reviewedand updated as appropriate. Review of Systems All other systems reviewed and are negative. Objective: Filed Vitals: 11/20/2010 4:00 PM BP: 100/60 Pulse: 60 Temp: 98.3 ??F (36.8 ??C) TempSrc: Forehead Weight: 136 lb 3.2 oz (61.78 kg) There is no height on file to calculate BMI. Physical Exam Nursing note and vitals reviewed. Constitutional: She is oriented. She appears well-developed and well-nourished. No distress. Eyes: Conjunctivae are normal. No scleral icterus. Cardiovascular: Normal rate, regular rhythm and normal heart sounds. No murmur heard. Pulmonary/Chest: Effort normal and breath sounds normal. Abdominal: Soft. Bowel sounds are normal. She exhibits no distension and no mass. No tenderness. She has no rebound and no guarding. Musculoskeletal: She exhibits no edema. Neurological: She is alert and oriented. Assessment and Plan: Bonny was seen today for head lice and amenorrhea. Diagnoses and associated orders for this visit: - Amenorrhea - Poct urine test documented in this encounter Plan of Treatment Not on file documented as of this encounter Procedures Procedure Name Priority Date/Time Associated Diagnosis Comments POCT URINE Routine 11/20/2010 4:05 PM EDT Amenorrhea documented in this encounter Results * (ABNORMAL) POCT URINE (11/20/2010 4:05 PM EDT) Preg Test, Ur pos Pos/Neg Lot Number [id number] Expiration Date 07/2012 SeriAl # Control Line yes Yes/No 11/20/2010 4:05 PM EDT Nehemias Barron MD POINT OF CARE TEST ORDERABLES Edited documented in this encounter Visit Diagnoses Diagnosis Amenorrhea- Primary Absence of menstruation Head lice Pediculus capitis (head louse) state, incidental documented in this encounter Care Teams Potato Loader Relationship Specialty Start Date End Date Jude Aldrich MD [address] [place] [id number] PCP - General 04/16/09 11/30/10 documented as of this encounter
--- OUTSIDE RECORDS SUMMARY | 2024-03-07 05:11 | XMS_ITS | Referral Summary ---
Author Organization [facility] Address [address] [place] [address]- Care Team Providers Care Cutting Table Operator Name Role Phone Ruby, Physician Primary Care Physician Sunshine vailable Encounter Date(s): 10/10/19 - 10/10/19 [facility] [address] [place] [address]- [facility] Encounter Diagnosis Vasovagal syncope(Discharge Diagnosis) - 10/10/19 Discharge Disposition: Home Attending Physician: Ambrose Tarango Referring Physician: Ambrose Tarango Vital Signs Most recent to oldest [Reference Range]: 1 2 Blood Pressure [90-140/60-90 mm-hg] 95/5 7mm-hg (10/10/19 10:51 AM) 103/47mm-hg (10/10/19 9:41 AM) M A P [65-110 mm-hg] 70 mm-hg (10/10/19 10:51 AM) 66 mm-hg (10/10/19 9:41 AM) Temperature Tympanic [97.9-100.6 DegF] 9 7.8 DegF *LOW* (10/10/19 9:41 AM) Peripheral Pulse Rate [60-100 bpm] 96 bp m (10/10/19 10:51 AM) 92 bpm (10/10/19 9:41 AM) Respiratory Rate [14-20 br/min] 18 br/mi n (10/10/19 10:51 AM) 18 br/min (10/10/19 9:41 AM) Height [48-72 in] 65 in (10/10/19 9:41 AM) Weight [80-220 lb] 160 lb (10/10/19 9:41 AM) Problem List Condition Effective Dates Status Health Status Inform ant Seizure(Confirmed) 10/10/19 Active Syncope(Confirmed) 10/10/19 Active Allergies, Adverse Reactions, Alerts Substance Reaction Severity Status sulfADIAZINE Active Medications Effexor XR 75 mg oral capsule, extended release 1 tab(s), PO, Daily, 30, 0, ER Capsule, [facility] Start Date: 10/10/19 Status: Ordered trazodone 50 mg oral tablet 50 mg, 1 tab(s), PO, qHS, 30, 0, Tab, [facility] Start Date: 10/10/19 Status: Ordered Results GENERAL CHEMISTRY Most recent to oldest [Reference Range]: 1 Glucose Level [70-110 mg/dL] 91 mg/dL (10/10/19 10:06 AM) Sodium Level [136-148 mmol/L] 136 mmol/L (10/10/19 10:06 AM) Potassium Level [3.8-5.2 mmol/L] 4.0 mmo l/L (10/10/19 10:06 AM) Chloride [98-108 mmol/L] 103 mmol/L (10/10/19 10:06 AM) CO2 [22.3-33.5 mmol/L] 28.8 mmol/L (10/10/19 10:06 AM) BUN [7-22 mg/dL] 12 mg/dL (10/10/19 10:06 AM) Creatinine [0.80-1.50 mg/dL] 0.78 mg/dL *LOW* (10/10/19 10:06 AM) Calcium [8.7-10.5 mg/dL] 8.8 mg/dL (10/10/19 10:06 AM) Total Protein [6.4-8.2 g/dL] 7.4 g/dL (10/10/19 10:06 AM) Albumin Level [3.4-5.0 g/dL] 3.8 g/dL (10/10/19 10:06 AM) Alkaline Phosphatase Lv [46-116 unit/L] 74 unit/L (10/10/19 10:06 AM) ALT [12-78 unit/L] 127 unit/L *HI* (10/10/19 10:06 AM) AST [22-37 unit/L] 52 unit/L *HI* (10/10/19 10:06 AM) Bili Total [0.50-1.50 mg/dL] 0.50 mg/dL (10/10/19 10:06 AM) EGFR Non -Norwegian [>=60.00 ml/mi n/1.73m2] 104.18 ml/min/1.73m2 (10/10/19 10:06 AM) EGFR -Norwegian [>=60.00 ml/min/1. 73m2] 120.74 ml/min/1.73m2 (10/10/19 10:06 AM) SPECIAL CHEMISTRY Most recent to oldest [Reference Range]: 1 Hemoglobin A1c [4.2-6.3 %] 5.0 % (10/10/19 10:06 AM) CORONARY RISK STUDIES Most recent to oldest [Reference Range]: 1 Cholesterol [100-199 mg/dL] 140 mg/dL (10/10/19 10:06 AM) Triglycerides [20-200 mg/dL] 65 mg/dL (10/10/19 10:06 AM) HDL [0-55 mg/dL] 53 mg/dL (10/10/19 10:06 AM) LDL, calculated [0-159 mg/dL] 74 mg/dL (10/10/19 10:06 AM) CARDIAC STUDIES Most recent to oldest [Reference Range]: 1 NT- Pro BNP [0.0-450.0 pg/mL] 24.0 pg/mL (10/10/19 10:06 AM) Troponin I [0.000-0.056 ng/mL] <0.017 ng /mL (10/10/19 10:06 AM) CBC and Differential Most recent to oldest [Reference Range]: 1 WBC [4.50-11.00 x10-3/mcL] 2.71 x10-3/mc L *LOW* (10/10/19 10:05 AM) RBC [4.20-5.40 x10-6/mcL] 4.11 x10-6/mcL *LOW* (10/10/19 10:05 AM) Hgb [11.5-16.0 g/dL] 13.0 g/dL (10/10/19 10:05 AM) Hct [37.0-47.0 %] 37.7 % (10/10/19 10:05 AM) MCV [81.0-99.0 fL] 91.7 fL (10/10/19 10:05 AM) MCH [27.0-37.0 pg] 31.6 pg (10/10/19 10:05 AM) MCHC [33.0-37.0 g/dL] 34.5 g/dL (10/10/19 10:05 AM) RDW [40.0-52.0 fL] 40.3 fL (10/10/19 10:05 AM) Platelet [130-450 x10-3/mcL] 176 x10-3/m cL (10/10/19 10:05 AM) Neutro Auto [50-70 %] 48 % *LOW* (10/10/19 10:05 AM) Lymph Auto [25-40 %] 41 % *HI* (10/10/19 10:05 AM) [place] Auto [2-9 %] 10 % *HI* (10/10/19 10:05 AM) Eos Auto [2-4 %] 1 % *LOW* (10/10/19 10:05 AM) Basophil Auto [0-1 %] 1 % (10/10/19 10:05 AM) Absolute Neutrophil Count [1.50-7.50 x10 -3/mcL] 1.29 x10-3/mcL *LOW* (10/10/19 10:05 AM) Absolute Lymphocyte Count [1.10-4.40 x10 -3/mcL] 1.10 x10-3/mcL (10/10/19 10:05 AM) Absolute Monocyte Count [0.00-0.80 x10-3 /mcL] 0.27 x10-3/mcL (10/10/19 10:05 AM) Absolute Eosinophil Count [0.15-0.60 x10 -3/mcL] 0.02 x10-3/mcL *LOW* (10/10/19 10:05 AM) Absolute Basophil Count [0.02-0.05 x10-3 /mcL] 0.02 x10-3/mcL (10/10/19 10:05 AM) LABORATORY Most recent to oldest [Reference Range]: 1 Beta hCG Ql [Negative] Negative (10/10/19 10:40 AM) Social History Social History Type Response Smoking Status Current every day marj charlton Assessment and Plan Extracted from: Title:Syncope Author:Ambrose Tarango Date: Impression and Plan vasovagal Plan Condition: Improved, Stable. Disposition: Discharged: Time 10/10/19 10:45:00, to home. Follow up with: Primary Care Physician. Physician coding level Level IV Hospital Discharge Instructions Patient Education Dizziness Syncope Follow Up Care 10/10/2019 09:37:51 With:Return to Emergency Department Address:Unknown When:only if needed With:Follow up with primary care provider Address:Unknown When:Unknown
[2024-03-07 05:19] VITALS: BMI 27.1
[2024-03-07 05:37] LABS: Basophils % 0.5 % (0.1-2.0); Eosinophils % 0.6 % (0.1-12.0); Hematocrit 35.4 % (37.0-47.0); Hemoglobin 12.4 g/dL (12.2-16.2); Lymphocytes # 1.5 K/mm3 (0.7-4.5); Lymphocytes % 21.7 % (10-50); Mean Corpuscular Hemoglobin 34.3 pg (27.0-31.2); Monocytes # 0.4 K/mm3 (0.1-1.0); Monocytes % 6.5 % (1.7-9.3); Neutrophils # 4.8 K/mm3 (1.8-7.8); Neutrophils % 70.7 % (37.0-80.0); Platelet Count 152 K/mm3 (142-424); Red Blood Count 3.61 M/mm3 (4.20-5.40); Red Cell Distribution Width 13.4 % (11.5-17.5); White Blood Count 6.8 K/mm3 (4.8-10.8)
[2024-03-07 05:45] LABS: Anion Gap 11.9 mEq/L (5-15); Blood Urea Nitrogen 10 mg/dl (7-17); Calcium 9.1 mg/dl (8.4-10.2); Carbon Dioxide 20 mmol/L (22.0-30.0); Chloride 108 mmol/L (98-107); Creatinine Clearance Estimated 190 mL/min (50-200); Estimated Glomerular Filt Rate 144 ml/min (>60); GFR (African American) 174 ML/MIN (>60); Glucose 115 mg/dl (74-100); Potassium 3.9 mmoL/L (3.5-5.1); Sodium 136 mmol/L (136-145)
[2024-03-07] MEDS: DEXTROSE 5%-LACTATED RINGERS 1,000 ML 125 ML IV ×2 (05:51→13:48)
[2024-03-07] MEDS: OXYTOCIN/RINGERS LACTATE 30 UNITS/500 ML BAG IV (05:51)
--- NOTE | 2024-03-07 07:29 | HMH.PHAINT1 ---
Pharmacy Intervention Comments: MEDICATION RECONCILIATION COMPLETED ON PATIENT USING EXTERNAL FILL HISTORY FROM PHARMACY. -ADOLPH TOVAR, ASTRIDD
[2024-03-07 08:16] LABS: Microscopic, Urine URINE MICROSCOPIC (MICROSCOPIC)
[2024-03-07 08:18] LABS: Appearance,Urine CLEAR (Clear); Bilirubin,Urine Negative (Negative); Blood, Urine Negative (Negative); Color,Urine YELLOW (Yellow); Glucose,Urine (UA) Negative (Negative); Ketones,Urine Negative (Negative); Leukocyte Esterase,Urine TRACE (Negative); Nitrate,Urine Negative (Negative); PH,Urine 6.5 (5.0-8.5); Protein,Urine Negative (Negative)
[2024-03-07 08:39] LABS: Barbiturates Screen,Urine Negative ng/ml (<200)
[2024-03-07 08:40] LABS: Benzodiazepines Screen,Urine Negative ng/ml (<200)
[2024-03-07 08:41] LABS: Amphetamine/Metha Screen,Urine Negative ng/ml (<1000); Methadone Screen,Urine Negative ng/ml (<300)
[2024-03-07 08:42] LABS: Cannabinoid Screen,Urine Negative ng/ml (<50)
[2024-03-07 08:43] VITALS: BP 122/58; PULSE 86; RESP 17; TEMP 36.8; O2SAT 98
[2024-03-07 08:43] LABS: Cocaine Screen,Urine Negative ng/ml (<300); Opiate Screen,Urine Negative ng/ml (<300)
[2024-03-07 08:44] LABS: Phencyclidine Screen,Urine Negative ng/ml (<25)
--- NOTE | 2024-03-07 08:55 | EXP.LABOR.NO ---
Labor Note Subjective: Date: 03/07/24 Time: 08:55 regular contraction Objective: Contractions:: every 2-3 minutes Cervical Dilation:: 4 Effacement:: 75% Station: -1 Membranes: artificially ruptured Comment:: I ruptured membranes and there was clear fluid. Fetus: Monitoring?: Yes monitoring type:: External Assessment: Labor progressing?: Yes Cephalopelvic disproportion?: No Plan: Anesthesia for epidural?: Yes Continue to labor down?: Yes Plan for ?: No Continue to monitor?: Yes Start pushing?: No Comment:: Her membranes are ruptured with clear fluid. She is damien well. We will expect a vaginal delivery.
[2024-03-07 08:58] LABS: WBC,Urine Occasional #/hpf (0-3)
[2024-03-07 08:59] LABS: Transitional Epi Cells,Urine OCC #/lpf (0-3)
[2024-03-07] MEDS: LACTATED RINGERS 1000ML 1,000 ML 999 ML IV (10:13)
--- NOTE | 2024-03-07 11:00 | EXP.ANES.CKL ---
[facility] Disclaimer: The information contained in this section may have been updated after the patient was seen, as this information can be updated by other users. Medical History Anemia Gestational diabetes Anxiety and depression depression Melanoma Cervical dysplasia Surgical History History of appendectomy Hx of dilation and curettage H/O LEEP Family History Grandmother Cancer endometriosis and uterine Stroke Grandfather Cancer bone Kidney disease Social History Smoking Status: Current every day smoker tobacco type: cigarettes packs per day: 1 and e-cigarettes alcohol intake: never substance use type: denies use current occupational status: unemployed Travel in the last 8 weeks: None [facility] Anesthesia Checklist Patient Identification Patient Identification: Arm Band Structural Data Admitted From: Inpatient Planned Operative Procedure/s: Labor Epidural Consent for Planned Operative Procedure(s) Verified: Yes Verified Documents: Surgical Consent and History and Physical Additional verifications Anesthesia Reactions: No Neurological Assessment Level of Consciousness: Awake, Alert and Appropriate Anesthesia Plan Anesthesia Risk discussed: Yes Anesthesia Plan: Verified ASA Class: II Anesthesia Type: Epidural
--- NOTE | 2024-03-07 13:03 | P.HP_ITS ---
History of Present Illness *Admission Date: 03/07/24 *Reason for visit:: Normal delivery, term *History of present illness: She is a 33-year-old 7 para 2 aborta 4 who is 39 weeks gestational age. She has been having some occasional contractions and asked for induction of labor at term. AB+ blood Rubella immune Group B streptococcus negative History of hepatitis C but viral load negative [facility] Disclaimer: The information contained in this section may have been updated after the patient was seen, as this information can be updated by other users. Medical History Anemia Gestational diabetes Anxiety and depression depression Melanoma Cervical dysplasia Surgical History History of appendectomy Hx of dilation and curettage H/O LEEP Family History Kidney disease Grandfather Cancer Grandmother Grandfather Stroke Grandmother Social History Smoking Status: Current every day smoker tobacco type: cigarettes packs per day: 1 and e-cigarettes alcohol intake: never substance use type: denies use and former substance user current occupational status: unemployed Travel in the last 8 weeks: None do you feel safe at home: Yes victim of physical abuse: No victim of emotional abuse: No victim of sexual abuse: No Other Medical History Have you received the Flu Vaccine for this season: No Have you received the Pneumonia Vaccine: No Review of Systems Review of Systems Review of systems:: pertinent systems reviewed and negative unless documented below Meds Home Medications and Allergies Home Medications ?Medication ?Instructions ?Recorded ?Confirmed ?Type vits no.126-ferrous fum 1 tab PO DAILY #30 tabs 09/16/23 03/07/24 Rx 28 mg iron-folic acid 800 mcg tablet (Classic ) magnesium 250 mg tablet 250 mg PO DAILY 12/28/23 03/07/24 History triamcinolone acetonide 0.1 % 1 applic topical BID #80 grams 01/20/24 03/07/24 Rx topical cream albuterol sulfate 90 mcg/actuation 2 puff inhalation Q4HP PRN 03/07/24 03/07/24 History aerosol inhaler shortness of breath or wheezing ferrous sulfate 325 mg (65 mg 325 mg PO DAILY 03/07/24 03/07/24 History iron) tablet New Prescriptions to Start Prescriptions: Allergies Allergy/AdvReac Type Severity Reaction Status Date / Time latex Allergy Mild Hives Verified 03/05/24 13:54 SULFA (sulfonamide) Allergy Intermediate I-RASH Uncoded 03/05/24 13:54 Exam Data for Last 24 hours Vital signs and Labs for Last 24 Hours: Temp Pulse Resp BP Pulse Ox O2 Del Method 98.2 F 86 17 122/58 L 98 Room Air 03/07/24 08:43 03/07/24 08:43 03/07/24 08:43 03/07/24 08:43 03/07/24 08:43 03/07/24 08:43 Laboratory Results - last 24 hr 03/07/24 05:25: WBC 6.8, RBC 3.61 L, Hgb 12.4, Hct 35.4 L, MCV 98.0, MCH 34.3 H, MCHC 35.0, RDW 13.4, Plt Count 152, MPV 9.0, Neut % (Auto) 70.7, Lymph % (Auto) 21.7, [place] % (Auto) 6.5, Eos % (Auto) 0.6, Baso % (Auto) 0.5, Neut # (Auto) 4.8, Lymph # (Auto) 1.5, [place] # (Auto) 0.4, Eos # (Auto) 0.0, Baso # (Auto) 0.0, Sodium 136, Potassium 3.9, Chloride 108 H, Carbon Dioxide 20 L, Anion Gap 11.9, BUN 10, Creatinine 0.50 L, Estimated Creat Clear 190, Estimated GFR 144, Est GFR ( Amer) 174, Glucose 115 H, Calcium 9.1, Blood Type AB Positive, Antibody Screen Negative 03/07/24 05:50: Urine Color Yellow, Urine Appearance Clear, Urine pH 6.5, Ur Specific [place] 1.020, Urine Protein Negative, Urine Glucose (UA) Negative, Urine Ketones Negative, Urine Blood Negative, Urine Nitrate Negative, Urine Bilirubin Negative, Urine Urobilinogen 1.0, Ur Leukocyte Esterase Trace, Urine RBC None, Urine WBC Occasional, Ur Squamous Epith Cells None, Ur Transition Epith Cell Occ, Urine Bacteria None, Urine Opiates Screen Negative, Urine Methadone Screen Negative, Ur Barbituates Screen Negative, Ur Phencyclidine Scrn Negative, Ur Amphetamines Screen Negative, U Benzodiazepines Scrn Negative, Urine Cocaine Screen Negative, U Marijuana (THC) Screen Negative I & O for Last 24 hours: Intake & Output 03/05/24 03/06/24 03/07/24 03/08/24 11:59 11:59 11:59 11:59 Weight 163 lb Constitutional Constitutional: no acute distress *Routine HEENT Exam Head: Present normocephalic Eye: Present EOMI and PERRL ENT: Present mucous membranes moist *Routine Neck Exam Neck: Present supple; Absent lymphadenopathy *Routine Respiratory Exam Respiratory: Present CTA bilaterally *Routine Cardiovascular Exam Cardiovascular: Present RRR *Routine Abdominal Exam Abdominal: Present soft and normoactive bowel sounds; Absent tenderness *Routine Rectal Exam Rectal:: deferred *Routine Genitalia Exam Genitalia:: deferred *Routine Extremities Exam Extremities: Absent cyanosis, clubbing or edema *Routine Skin Exam Skin: Present warm; Absent rash *Routine Neurological Exam Neurological: Present alert and oriented X3 Assessment and Plan *Assessment and plan (1) Normal delivery: Status: Acute Category: Medical Code(s): O80 - Encounter for full-term uncomplicated delivery (2) HCV antibody positive: Status: Acute Category: Medical Code(s): R76.8 - Other specified abnormal immunological findings in serum Plan She is admitted for induction of labor. She is 3 to 4 cm. She has been exposed to HCV but her viral load is negative. We expect a vaginal delivery.
--- NOTE | 2024-03-07 13:11 | P.PN_ITS ---
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 Assessment: Labor progressing?: Yes Cephalopelvic disproportion?: No Plan: Anesthesia for epidural?: Yes Continue to labor down?: Yes Plan for ?: No Continue to monitor?: Yes Start pushing?: No
[2024-03-07 14:52] LABS: RPR W/RFX Titers Nonreactive (Nonreactive)
--- NOTE | 2024-03-07 14:58 | EXP.LABOR.NO ---
Labor Note Subjective: Date: 03/07/24 Time: 14:58 regular contraction Objective: NST:: Reactive Contractions:: every 2-3 minutes Cervical Dilation:: 6 Effacement:: 100% Station: -1 Membranes: artificially ruptured Fetus: Monitoring?: Yes monitoring type:: Internal and External Assessment: Labor progressing?: Yes Cephalopelvic disproportion?: No Plan: Anesthesia for epidural?: Yes Continue to labor down?: Yes Plan for ?: No Continue to monitor?: Yes Start pushing?: No Comment:: She is doing well. She has progressed to 6 cm. We will expect a vaginal delivery.
[2024-03-07] MEDS: METHYLERGONOVINE MALEATE 0.2MG/ML INJ 0.2 MG IM (17:20)
--- NOTE | 2024-03-07 17:31 | EXP.DN ---
Delivery Note Delivery Date:: 03/07/24 Delivery Time:: 17:12 Anesthesia Type: Epidural Was labor medically induced?: Yes Induction method: per pitocin protocol Gestational age (weeks): 39 delivered prior to 39 weeks?: No Justification for early elective delivery:: Other Gender: Male at 1 minute: 8 at 5 minutes: 9 Delivery Procedure:: She is a 33-year-old 7 para 2 aborta 4 who was 39 weeks gestational age. She requested induction of labor at term. She was started on IV oxytocin had her membranes ruptured. Under labor epidural she progressed to full dilation and delivered spontaneously a liveborn male child at 5:12 PM in the evening of March 07, 2024. On delivery of the head it was noted that there was a loose nuchal cord. This was easily reduced. The anterior shoulder then delivered followed by the rest of the infant's body atraumatically. The baby was vigorous and cried spontaneously. The oropharynx and nasopharynx were bulb suction. We allowed the cord to continue to pulsate for approximately 1 minute. The cord was then doubly clamped and cut and the infant was placed on the mother's abdomen for further care. There was a three-vessel cord. She received IV oxytocin using gentle traction the cord and countertraction the fundus I was able to easily deliver the placenta intact 3 minutes after the delivery. There were no perineal or vaginal lacerations. She had approximately 400 cc of blood loss and the uterus was boggy right after delivery so we elected to perform the hemorrhage protocol. She received 1 dose of IM Methergine. She is receiving IV oxytocin. Her uterus is now firm and her bleeding is minimal. She has a be positive blood, she is overall immune and was group B streptococcus negative. She plans to bottlefeed. Her electronic bench technician will be Dr. Ron. Placental Delivery Description: Spontaneous
[2024-03-07] MEDS: OXYTOCIN/RINGERS LACTATE 30 UNITS/500 ML BAG 40 UNITS IV ×2 (17:37→21:11)
[2024-03-07] MEDS: miSOPROStoL 200 MCG TABLET 1000 MCG RC (17:45)
--- NOTE | 2024-03-07 17:51 | P.PN_ITS ---
Subjective *Date: 03/07/24 *Time: 17:51 Interval history: After bleeding about 400 cc she received Methergine and oxytocin. Subsequently she passed a couple of large clots and as result of that we elected to give her Cytotec 1000 mcg DC. We also inserted a Delmy into the uterine cavity and filled it with 240 cc of fluid. The uterus has subsequently contracted and we will leave the [place] for a couple of hours. Medical Exam Vital signs and Labs for Last 24 Hours: Vital Signs Temp Pulse Resp BP Pulse Ox O2 Del Method 03/07/24 08:43 98.2 F 86 17 122/58 L 98 Room Air Intake and Output 03/07/24 03/07/24 03/07/24 03:59 11:59 19:59 Other: Weight 163 lb Laboratory Results - last 24 hr 03/07/24 05:25: WBC 6.8, RBC 3.61 L, Hgb 12.4, Hct 35.4 L, MCV 98.0, MCH 34.3 H, MCHC 35.0, RDW 13.4, Plt Count 152, MPV 9.0, Neut % (Auto) 70.7, Lymph % (Auto) 21.7, [place] % (Auto) 6.5, Eos % (Auto) 0.6, Baso % (Auto) 0.5, Neut # (Auto) 4.8, Lymph # (Auto) 1.5, [place] # (Auto) 0.4, Eos # (Auto) 0.0, Baso # (Auto) 0.0, Sodium 136, Potassium 3.9, Chloride 108 H, Carbon Dioxide 20 L, Anion Gap 11.9, BUN 10, Creatinine 0.50 L, Estimated Creat Clear 190, Estimated GFR 144, Est GFR ( Amer) 174, Glucose 115 H, Calcium 9.1, Blood Type AB Positive, Antibody Screen Negative 03/07/24 05:50: Urine Color Yellow, Urine Appearance Clear, Urine pH 6.5, Ur Specific [place] 1.020, Urine Protein Negative, Urine Glucose (UA) Negative, Urine Ketones Negative, Urine Blood Negative, Urine Nitrate Negative, Urine Bilirubin Negative, Urine Urobilinogen 1.0, Ur Leukocyte Esterase Trace, Urine RBC None, Urine WBC Occasional, Ur Squamous Epith Cells None, Ur Transition Epith Cell Occ, Urine Bacteria None, Urine Opiates Screen Negative, Urine Methadone Screen Negative, Ur Barbituates Screen Negative, Ur Phencyclidine Scrn Negative, Ur Amphetamines Screen Negative, U Benzodiazepines Scrn Negative, Urine Cocaine Screen Negative, U Marijuana (THC) Screen Negative I & O for Labs for Last 24 Hours: Intake & Output 03/05/24 03/06/24 03/07/24 03/08/24 11:59 11:59 11:59 11:59 Weight 163 lb Head: Present atraumatic Comment:: She does not appear to be in any distress. She was having some nausea but this has now settled. Respiratory: Present normal respiratory effort; Absent accessory muscle use Assessment and Plan *Assessment and plan (1) hemorrhage: Status: Acute Qualifiers: hemorrhage type: third-stage Qualified Code(s): O72.0 - Third-stage hemorrhage Category: Medical Code(s): O72.1 - Other immediate hemorrhage Plan She had a large clot the size of a baseball so we elected to give her 1000 mcg of Cytotec DC. I also inserted a Delmy into the uterine cavity. I injected 240 cc of saline into the Delmy and the uterus now seems to be well-contracted. We will continue to observe her closely. We have started a second IV and have started the BPH protocol. We will continue to watch her closely.
[2024-03-07 18:06] LABS: Basophils % 0.6 % (0.1-2.0); Eosinophils # 0.1 K/mm3 (0.0-0.4); Eosinophils % 0.8 % (0.1-12.0); Hematocrit 33.3 % (37.0-47.0); Hemoglobin 11.7 g/dL (12.2-16.2); Lymphocytes # 1.2 K/mm3 (0.7-4.5); Lymphocytes % 19.5 % (10-50); Mean Corpuscular HGB Conc 35.3 g/dL (31.8-35.4); Mean Corpuscular Hemoglobin 34.7 pg (27.0-31.2); Mean Corpuscular Volume 98.2 fl (81-99); Mean Platelet Volume 9.4 fl (7.4-10.4); Monocytes # 0.3 K/mm3 (0.1-1.0); Monocytes % 4.5 % (1.7-9.3); Neutrophils # 4.6 K/mm3 (1.8-7.8); Neutrophils % 74.7 % (37.0-80.0); Platelet Count 115 K/mm3 (142-424); Red Blood Count 3.39 M/mm3 (4.20-5.40); Red Cell Distribution Width 13.5 % (11.5-17.5); White Blood Count 6.2 K/mm3 (4.8-10.8)
[2024-03-07 18:20] LABS: Chloride 108 mmol/L (98-107); Sodium 132 mmol/L (136-145)
[2024-03-07 18:21] LABS: Activated Partial Thrombo Time 25.5 seconds (22.8-30.6); Fibrinogen 388 mg/dL (229.9-363.5); INR 0.83 (0.9-1.1); Potassium 4.3 mmoL/L (3.5-5.1); Prothrombin Time 9.5 seconds (10.1-12.5)
[2024-03-07 18:24] LABS: Anion Gap 6.3 mEq/L (5-15); Blood Urea Nitrogen 7 mg/dl (7-17); Calcium 8.2 mg/dl (8.4-10.2); Carbon Dioxide 22 mmol/L (22.0-30.0); Creatinine Clearance Estimated 190 mL/min (50-200); Estimated Glomerular Filt Rate 144 ml/min (>60); GFR (African American) 174 ML/MIN (>60); Glucose 92 mg/dl (74-100)
[2024-03-07] MEDS: NICOTINE 21MG/24HR PATCH 21 MG TD (18:44)
[2024-03-07] MEDS: ACETAMINOPHEN 500MG TAB 1000 MG PO (19:33)
[2024-03-08] MEDS: ACETAMINOPHEN 500MG TAB 1000 MG PO ×2 (05:34→14:55)
--- NOTE | 2024-03-08 06:25 | P.PN_ITS ---
Subjective *Date: 03/08/24 *Time: 06:48 Interval history: Bonny Olivares is a 33yo PPD#1 from an complicated by a PPH. Her bleeding is stable and she is doing well this morning. She is breast feeding. she desires a BSG for contraception. -Reports pain is well-controlled -Reports she is tolerating p.o. without nausea or vomiting. -Reports she has had a BM -Desires bilateral salpingectomy for contraception -Denies any perineal pain -Ambulating, voiding difficulty or dysuria. Denies chest pain shortness of breath or pain in her legs. No further complaints at this time. Exam Data for Last 24 hours Vital signs and Labs for Last 24 Hours: Temp Pulse Resp BP Pulse Ox O2 Del Method 98.2 F 86 17 122/58 L 98 Room Air 03/07/24 08:43 03/07/24 08:43 03/07/24 08:43 03/07/24 08:43 03/07/24 08:43 03/07/24 08:43 Laboratory Results - last 24 hr 03/07/24 05:25: Blood Type AB Positive, Antibody Screen Negative, Crossmatch (AHG) See Detail 03/07/24 05:50: Urine Color Yellow, Urine Appearance Clear, Urine pH 6.5, Ur Specific [place] 1.020, Urine Protein Negative, Urine Glucose (UA) Negative, Urine Ketones Negative, Urine Blood Negative, Urine Nitrate Negative, Urine Bilirubin Negative, Urine Urobilinogen 1.0, Ur Leukocyte Esterase Trace, Urine RBC None, Urine WBC Occasional, Ur Squamous Epith Cells None, Ur Transition Epith Cell Occ, Urine Bacteria None, Urine Opiates Screen Negative, Urine Methadone Screen Negative, Ur Barbituates Screen Negative, Ur Phencyclidine Scrn Negative, Ur Amphetamines Screen Negative, U Benzodiazepines Scrn Negative, Urine Cocaine Screen Negative, U Marijuana (THC) Screen Negative 03/07/24 17:55: WBC 6.2, RBC 3.39 L, Hgb 11.7 L, Hct 33.3 L, MCV 98.2, MCH 34.7 H, MCHC 35.3, RDW 13.5, Plt Count 115 L, MPV 9.4, Neut % (Auto) 74.7, Lymph % (Auto) 19.5, [place] % (Auto) 4.5, Eos % (Auto) 0.8, Baso % (Auto) 0.6, Neut # (Auto) 4.6, Lymph # (Auto) 1.2, [place] # (Auto) 0.3, Eos # (Auto) 0.1, Baso # (Auto) 0.0, PT 9.5 L, INR 0.83 L, APTT 25.5, Fibrinogen 388 H, Sodium 132 L, Potassium 4.3, Chloride 108 H, Carbon Dioxide 22, Anion Gap 6.3, BUN 7 D, Creatinine 0.50 L, Estimated Creat Clear 190, Estimated GFR 144, Est GFR ( Amer) 174, Glucose 92, Calcium 8.2 L I & O for Last 24 hours: Intake & Output 03/05/24 03/06/24 03/07/24 03/08/24 23:59 23:59 23:59 23:59 Weight 163 lb Narrative: General: patient is alert oriented in no acute distress and responds appropriately to questions. Appears to be in minimal pain. Sitting up in the bed male infant HEENT: NCAT, EOMI, moist mucous membranes, neck supple with full ROM Cardiovascular: RRR +S1/S2, no murmurs or rubs Pulmonary: Clear to auscultation bilaterally, nonlabored breathing, symmetric chest rise Abdominal: Fundus at the umbilicus, firm, and slightly increased tenderness for the period. Extremities: trace edema, no tenderness or cyanosis noted Skin: Normal turgor, intact, warm. Negative for erythema, pallor, petechia, or lesions Neurologic: Negative for sensory or motor deficit Psychiatric: Normal affect, normal thought process, good judgment and insight, no depression or anxious mood appreciated. Assessment and Plan *Assessment and plan (1) hemorrhage: Status: Acute Qualifiers: hemorrhage type: third-stage Qualified Code(s): O72.0 - Third-stage hemorrhage Category: Medical Code(s): O72.1 - Other immediate hemorrhage (2) (spontaneous vaginal delivery): Status: Acute Category: Medical Code(s): O80 - Encounter for full-term uncomplicated delivery (3) Gluteal abscess: Status: Acute Category: Medical Code(s): L02.31 - Cutaneous abscess of buttock Plan patient has a gluteal abscess. Eval for drainage tomorrow vs outpatient. Pt was and declined eval this morning. Plan to reassess. doing well from . cont . encouraged ambulation stable from PPH, AM hgb pending
[2024-03-08 06:38] LABS: Basophils % 0.5 % (0.1-2.0); Eosinophils % 0.4 % (0.1-12.0); Hematocrit 27.2 % (37.0-47.0); Lymphocytes # 1.6 K/mm3 (0.7-4.5); Lymphocytes % 19.6 % (10-50); Mean Corpuscular Hemoglobin 34.3 pg (27.0-31.2); Mean Corpuscular Volume 97.9 fl (81-99); Mean Platelet Volume 8.5 fl (7.4-10.4); Monocytes # 0.4 K/mm3 (0.1-1.0); Monocytes % 5.1 % (1.7-9.3); Neutrophils # 5.9 K/mm3 (1.8-7.8); Neutrophils % 74.4 % (37.0-80.0); Platelet Count 142 K/mm3 (142-424); Red Blood Count 2.77 M/mm3 (4.20-5.40); Red Cell Distribution Width 13.4 % (11.5-17.5); White Blood Count 7.9 K/mm3 (4.8-10.8)
[2024-03-08 06:55] LABS: Hemoglobin 9.5 g/dL (12.2-16.2)
[2024-03-08] MEDS: PRENATAL MULTIVITAMIN W/IRON 1 EACH PO (18:22)
[2024-03-08] MEDS: IBUPROFEN 800 MG TABLET PO (20:10)
[2024-03-08 20:45] VITALS: BP 106/74; PULSE 86; RESP 16; TEMP 36.9; O2SAT 100
[2024-03-08] MEDS: NICOTINE 21MG/24HR PATCH 21 MG TD (20:55)
[2024-03-09 05:10] VITALS: BP 123/59; PULSE 92; RESP 19; TEMP 36.7; O2SAT 100
[2024-03-09] MEDS: LANOLIN CREAM 40GM TP (05:11)
[2024-03-09] MEDS: ACETAMINOPHEN 500MG TAB 1000 MG PO (05:20)
[2024-03-09 08:24] VITALS: BP 101/55; PULSE 96; RESP 16; TEMP 36.7; O2SAT 98
--- NOTE | 2024-03-09 09:12 | SW/DCPLANNER ---
I received a consult on this patient regarding history of drug use. Patient urine drug screen was negative on the following dates: 11/08/23, 01/02/24, 02/19/24 and admission 03/07/24. cord screen has been collected and I will follow up once resulted. Patient delivered male (Jaiden /Francisco Olivares) on 03/07/24. Per patient this is her third child and has not had any past Social Service involvement. Patient stated that 's father is not involved. Patient will reside at [address] [place] [address] in [place] [address] w/ her mother (Becky Olivares) and aunt (Anastasia Han). Patient stated that she has joint custody of other two children. Patient is currently established w/ WIC and [facility]. PED MD will be Dr Raman and patient stated that she will have transportation to all follow up appointments. Patient has the following items at home: crib, car seat, clothing, diapers and will be breast feeding. Patient reports no drug use during . Per OB staff (Ritu) patient is expected to discharge home this afternoon. I will continue to follow up w/ infant cord screen.
--- NOTE | 2024-03-09 10:39 | P.DS_ITS ---
General Admission date:: 03/07/24 Discharge date: 03/09/24 HPI HPI HPI: She is a 33-year-old 7 para 2 aborta 4 who is 39 weeks gestational age. She has been having some occasional contractions and asked for induction of labor at term. AB+ blood Rubella immune Group B streptococcus negative History of hepatitis C but viral load negative Hospital Course Hospital Course Hospital Course: Bonny Olivares is a 33yo PPD#2 from an over intact perineum. Delivery was complicated by a PPH which was managed with Pitocin, Cytotec, and a Linda. Her bleeding is stable and she is doing well this morning. She is breast feeding. she desires a BSG for contraception. Of note she had a gluteal abcess that spontaneously drained and is doing well. I will send her home on prophylaxis antibiotics. Bonny delivered on 03/07/2024 at 1712. She delivered a liveborn male infant: Jaiden, weighing 6 pounds 8 ounces. She had Apgars of 8/9 at 1 minute and 5 minutes. She has done well and has remained afebrile with her at her hospitalization. She is eating and drinking and ambulating. She is . Her lochia is normal. She has AB+ blood, she is rubella immune and was group B streptococcus negative. She will be discharged home to follow-up with Dr. Tijerina in 2 weeks time. She will continue with her vitamins and iron. She will take ibuprofen as well. She was given the usual instructions with respect to limiting her activity, driving and sexual activity. Her condition on discharge is stable and improved. Exam Data for Last 24 hours Vital signs and Labs for Last 24 Hours: Temp Pulse Resp BP Pulse Ox O2 Del Method 98.0 F 96 H 16 101/55 L 98 Room Air 03/09/24 08:24 03/09/24 08:24 03/09/24 08:24 03/09/24 08:24 03/09/24 08:24 03/09/24 08:24 I & O for Last 24 hours: Intake & Output 03/06/24 03/07/24 03/08/24 03/09/24 23:59 23:59 23:59 23:59 Weight 163 lb Narrative: General: patient is alert oriented in no acute distress and responds appropriately to questions. Appears to be in minimal pain. Sitting up in the bed male infant HEENT: NCAT, EOMI, moist mucous membranes, neck supple with full ROM Cardiovascular: RRR +S1/S2, no murmurs or rubs Pulmonary: Clear to auscultation bilaterally, nonlabored breathing, symmetric chest rise Abdominal: Fundus below the umbilicus, firm, and slightly increased tenderness for the period. : examined gluteal abscess, spontaneously drained. no erythema or skin discoloration. No drainage. Healing well Extremities: trace edema, no tenderness or cyanosis noted Skin: Normal turgor, intact, warm. Negative for erythema, pallor, petechia, or lesions Neurologic: Negative for sensory or motor deficit Psychiatric: Normal affect, normal thought process, good judgment and insight, no depression or anxious mood appreciated. DS: Diagnosis Discharge Diagnosis (1) hemorrhage: Status: Acute Code(s): O72.1 - Other immediate hemorrhage Qualifiers: hemorrhage type: third-stage Qualified Code(s): O72.0 - Third-stage hemorrhage (2) (spontaneous vaginal delivery): Status: Acute Code(s): O80 - Encounter for full-term uncomplicated delivery (3) Gluteal abscess: Status: Acute Code(s): L02.31 - Cutaneous abscess of buttock Meds Home Medications and Allergies Home Medications ?Medication ?Instructions ?Recorded ?Confirmed ?Type vits no.126-ferrous fum 1 tab PO DAILY #30 tabs 09/16/23 03/07/24 Rx 28 mg iron-folic acid 800 mcg tablet (Classic ) magnesium 250 mg tablet 250 mg PO DAILY 12/28/23 03/07/24 History triamcinolone acetonide 0.1 % 1 applic topical BID #80 grams 01/20/24 03/07/24 Rx topical cream albuterol sulfate 90 mcg/actuation 2 puff inhalation Q4HP PRN 03/07/24 03/07/24 History aerosol inhaler shortness of breath or wheezing ferrous sulfate 325 mg (65 mg 325 mg PO DAILY 03/07/24 03/07/24 History iron) tablet acetaminophen 500 mg tablet 500 mg PO Q6H PRN fever or pain 03/09/24 Rx #30 tabs cephalexin 250 mg capsule 250 mg PO BID #10 caps 03/09/24 Rx ferrous sulfate 325 mg (65 mg 325 mg PO DAILY #30 tabs 03/09/24 Rx iron) tablet,delayed release ibuprofen 800 mg tablet 800 mg PO Q8H PRN pain #60 tabs 03/09/24 Rx New Prescriptions to Start Prescriptions: acetaminophen Hector,Michelle cephalexin Hector,Michelle ferrous sulfate Hector,Michelle ibuprofen Hector,Michelle Allergies Allergy/AdvReac Type Severity Reaction Status Date / Time latex Allergy Mild Hives Verified 03/05/24 13:54 SULFA (sulfonamide) Allergy Intermediate I-RASH Uncoded 03/05/24 13:54 Discharge Plan Disposition Patient Disposition: Home, Self-Care Discharge Order Discharge Orders: Discharge Order (Routine); Ordered 03/09/24 Ordered By: Michelle Young Follow up Plan Follow up with: Andres Tijerina MD [Staff Physician] - Enter time for follow up Prescriptions/Medication Reconciliation: New ibuprofen 800 mg tablet 800 mg PO Q8H PRN (Reason: pain) Qty: 60 2RF acetaminophen 500 mg tablet 500 mg PO Q6H PRN (Reason: fever or pain) Qty: 30 3RF ferrous sulfate 325 mg (65 mg iron) tablet,delayed release (DR/EC) 325 mg PO DAILY Qty: 30 3RF cephalexin 250 mg capsule 250 mg PO BID Qty: 10 0RF Continued magnesium 250 mg tablet 250 mg PO DAILY Classic 28 mg iron- 800 mcg tablet 1 tab PO DAILY Qty: 30 11RF triamcinolone acetonide 0.1 % cream 1 applic topical BID Qty: 80 0RF ferrous sulfate 325 mg (65 mg iron) tablet 325 mg PO DAILY albuterol sulfate 90 mcg/actuation HFA aerosol inhaler 2 puff inhalation Q4HP PRN (Reason: shortness of breath or wheezing) Problem Reconciliation Problems Reviewed?: Yes Patient Discharge Instructions ACTIVITY: Continue current activity DIET: regular diet Additional Instructions: Congratulations on the delivery of your sweet baby boy. It is my privilege to be a part of your [employer] team and I am so thankful I could be a part of your special day. Discharge: -Take 800 mg Ibuprofen every 8 hours as needed for pain. You can also take 500- 1000 mg of Tylenol in between doses, every 6-8 hours. -Colace can be taken 1-2 times per day as you need to soften your stool. Make sure to drink at least 8 cups of water per day. -Iron supplements can make you constipated. You can take iron tablets every other day if constipation is too bad. -Nothing in the vagina for 6 weeks - no intercourse, douching, tampons. No tub baths or swimming pools. -Do not lift greater than 20pounds for 2 weeks, this is the equivalent of 2 gallons of milk. -Reasons to return to L&D or call On-Call doctor - fever (greater than 100.4) - heavy vaginal bleeding (soaking through 1 pad in less than 2 hours or passing clots that are egg sized) - vaginal discharge (malodorous and/or purulent) - severe headaches, leg tenderness/edema, or any other symptoms that warrant immediate medical attention. depression/blues - Normal to feel anxious/overwhelmed for first 2 weeks - Talk to your doctor if: anxiety lasts over 2 weeks, trouble bonding with baby, withdrawing from other family members, thoughts of harming yourself or others Michelle Young DO [facility] [phone] *Nothing in the Vagina for 6 weeks* *No strenuous activity* *No heavy lifting* *No tub baths until okay's by MD* Patient Instructions: Depression, Hemorrhage, DI for Pre- eclampsia, [facility] Post Discharge Instructions Print Language: Icelandic Providers Primary Care Provider: Provider,Referral Admit Provider: Andres Tijerina Attending Provider: Andres Tijerina
== END 2024-03-09 13:54 | disposition home or self-care (01) | DRG 768 ==
PROVIDERS: Admitting Provider Nurse Practitioner Obstetrics & Gynecology; Visit Provider Nurse Practitioner Obstetrics & Gynecology
DX: O69.81X0 Labor and delivery complicated by cord around neck, without compression, not applicable or unspecified (principal); Z37.0 Single live birth; L02.31 Cutaneous abscess of buttock; O72.0 Third-stage hemorrhage; Z3A.39 39 weeks gestation of pregnancy; Z86.19 Personal history of other infectious and parasitic diseases
CPT/HCPCS: 36415; 59025; 80048; 80307; 81001; 85025; 85384; 85610; 85730; 86592; 86850; 94761; C1758; C9144; G0283; J3010; J7120

== ENCOUNTER 2024-04-27 12:34 | Outpatient (CLI) | payer OTHER, SELFPAY ==
[2024-04-27 13:03] VITALS: BMI 23.3
[2024-04-27 13:13] LABS: Eosinophils # 0.3 K/mm3 (0.0-0.4); Eosinophils % 6.1 % (0.1-12.0); Hematocrit 37.6 % (37.0-47.0); Hemoglobin 12.5 g/dL (12.2-16.2); Lymphocytes # 1.4 K/mm3 (0.7-4.5); Mean Corpuscular HGB Conc 33.2 g/dL (31.8-35.4); Mean Corpuscular Hemoglobin 31.7 pg (27.0-31.2); Mean Corpuscular Volume 95.4 fl (81-99); Mean Platelet Volume 10.4 fl (7.4-10.4); Monocytes # 0.4 K/mm3 (0.1-1.0); Monocytes % 9.3 % (1.7-9.3); Neutrophils # 2.1 K/mm3 (1.8-7.8); Neutrophils % 50.6 % (37.0-80.0); Platelet Count 215 K/mm3 (142-424); Red Blood Count 3.94 M/mm3 (4.20-5.40); White Blood Count 4.1 K/mm3 (4.8-10.8)
[2024-04-27 13:19] LABS: Albumin Level 4.7 g/dl (3.5-5.0); Chloride 107 mmol/L (98-107); Sodium 136 mmol/L (136-145)
[2024-04-27 13:22] LABS: Alanine Aminotransferase 34 U/L (12-78); Albumin/Globulin Ratio 1.6 (1.1-1.8); Alkaline Phosphatase 95 U/L (38-126); Aspartate Amino Transferase 30 U/L (14-36); Bilirubin,Total 0.4 mg/dl (0.2-1.3); Blood Urea Nitrogen 21 mg/dl (7-17); Calcium 9.4 mg/dl (8.4-10.2); Carbon Dioxide 22 mmol/L (22.0-30.0); Creatinine Clearance Estimated 117 mL/min (50-200); Estimated Glomerular Filt Rate 98 ml/min (>60); GFR (African American) 118 ML/MIN (>60); Globulin 2.9 g/dL (1.3-3.2); Glucose 86 mg/dl (74-100); Total Protein,Serum 7.6 g/dl (6.3-8.2)
[2024-04-27 13:46] LABS: HCG,Quantitative < 2 mIU/ml (0-5.42)
== END 2024-04-27 23:59 | disposition home or self-care (01) ==
PROVIDERS: PCP Family Medicine; Visit Provider Nurse Practitioner Obstetrics & Gynecology
DX: Z30.2 Encounter for sterilization (principal)
CPT/HCPCS: 80053; 84702; 85025

== ENCOUNTER 2024-04-30 06:55 | Day surgery (SDC) | payer OTHER, SELFPAY ==
[2024-04-27 13:05] VITALS: BMI 23.3
[2024-04-30] VITALS (9 sets, daily range): BP systolic 114–153; BP diastolic 60–85; PULSE 51–85; RESP 16–18; TEMP 36.3–36.4; O2SAT 97–100
[2024-04-30] MEDS: LACTATED RINGERS 1000ML 1,000 ML 25 ML IV (07:41)
[2024-04-30] MEDS: CEFAZOLIN SODIUM 2 GM in 0.9 % SODIUM CHLORIDE 100 ML IV (08:40)
[2024-04-30] MEDS: ROPIVACAINE 0.5% 30ML VIAL 300 MG (09:03)
--- NOTE | 2024-04-30 09:29 | P.OP_ITS ---
Date of procedure: 04/30/24 Pre-op Diagnosis:: Desire for sterilization Post-op Diagnosis:: Desire for sterilization Procedure performed:: Laparoscopic bilateral to tn Surgeon:: Andres Tijerina MD PAN CLEANER:: Antony Marcano Anesthesia: GETA Estimated blood loss (mL): 25 Clinical Note:: She is a 33-year-old lady who expressed desire for sterilization. The risks and benefits as well as the irreversibility of bilateral salpingectomy were discussed with the patient prior to surgery. Operative findings:: She had a normal-appearing anteverted uterus. The tubes were followed to their fimbriated end and appeared normal. The deep pelvis was normal. The upper abdomen appeared normal as well. Operative note:: She was taken to the operating room where general anesthesia was found be adequate. She was prepped and draped in normal sterile fashion in the semilithotomy position. A weighted speculum was placed in the vagina and the anterior lip of the cervix was grasped with a tenaculum. I then inserted a Dominique uterine manipulator into the cervical os. The balloon was then insufflated. I changed gloves and injected 10 cc of 0.5% ropivacaine around her umbilicus and made a small incision within the umbilicus. I inserted a Veress needle into the abdominal cavity. The peritoneal cavity was then insufflated with carbon dioxide gas to a pressure of 20 mmHg. I then inserted a 5 millimeter trocar under direct vision. I injected through and through the pubic hairline, made a small incision here and inserted an 8 mm trocar under direct vision. I identified the inferior epigastric artery on the left side, went lateral to these and injected through and through. I then placed a 5 mm trocar here under direct vision. The pelvis and upper abdomen were then inspected and the findings were as previously dictated. I grasped the right tube at the cornua and using harmonic scalpel on coagulation mode I cut through the tube. I then grasped the distal tube and using harmonic scalpel cut along the mesosalpinx. The tube was removed through 8 mm trocar site. This was similarly performed on the patient's left side. I then injected 30 cc of 0.5% ropivacaine into the pelvis. After assuring hemostasis the gas was let out of the abdomen and hemostasis was once again assured. The abdomen was then reinsufflated. The secondary trochars were removed under direct vision. The gas was let out her abdomen. The primary trocar was then removed. The 8 mm trocar site was closed deeply with 2-0 Vicryl suture followed by subcuticular 4-0 Monocryl suture. The 5 mm trocar sites were closed with subcuticular 4-0 Monocryl. Sterile dressings were applied. The patient tolerated the procedure well and was taken to the recovery room in excellent condition. All sponge instrument and needle counts were correct. The estimated blood loss was less than 25 cc. Condition: stable Disposition: PACU Specimens:: Bilateral fallopian tubes Complications:: None
--- NOTE | 2024-04-30 09:37 | P.PNANES_ITS ---
[facility] Disclaimer: The information contained in this section may have been updated after the patient was seen, as this information can be updated by other users. Medical History Anemia Gestational diabetes Anxiety and depression depression Melanoma Cervical dysplasia Surgical History History of appendectomy Hx of dilation and curettage H/O LEEP Family History Grandmother Cancer endometriosis and uterine Stroke Grandfather Cancer bone Kidney disease Social History (Updated 04/30/24 @ 07:33 by Charu Holloway RN) Smoking Status: Current every day smoker tobacco type: cigarettes packs per day: 1 and e-cigarettes alcohol intake: never substance use type: denies use and former substance user current occupational status: employed Travel in the last 8 weeks: None do you feel safe at home: Yes victim of physical abuse: No victim of emotional abuse: No victim of sexual abuse: No Have you lived/traveled outside [place] in past 30 days?: No Contact w/someone who lives/traveled outside [place] past 30 days?: No Exposure to someone with infectious disease in past 14 days?: No Do you have a fever (greater than 100.4 F or 38 C)?: No Have you tested positive for COVID-19: Yes Exposed to someone with COVID-19 in past 14 days?: No Do you have a sore throat?: No Do you have a cough?: No Do you have any weakness?: No Are you experiencing any nausea/vomitting?: No Do you have any diarrhea?: No Are you experiencing any unusual bleeding?: No Do you have any muscle aches/pain?: No Do you have any abdominal pain?: No Are you experiencing loss of taste or smell?: No [facility] Anesthesia Checklist Patient Identification Patient Identification: Arm Band Structural Data Admitted From: Home Planned Operative Procedure/s: Laparoscopic Bilateral Salpingectomy Consent for Planned Operative Procedure(s) Verified: Yes Verified Documents: Surgical Consent and History and Physical NPO Status Verified Time NPO: 00:00 Additional verifications Anesthesia Reactions: No Hx Blood Transfusions: No Blood Transfusion Reaction: No Airway Assessment Mallampati Score:: Class II C-Spine Mobility Assessed: Yes TMJ Mobility Assessed: Yes Dentition: Poor Dentition Neurological Assessment Level of Consciousness: Awake, Alert and Appropriate Anesthesia Plan Anesthesia Risk discussed: Yes Anesthesia Plan: Verified ASA Class: II Anesthesia Type: General
--- NOTE | 2024-04-30 09:38 | EXP.ANES.I ---
[facility] Anesthesia Record Part I Anesthesia Record I Intake, IV Amount: 1,100 Hydration: Adequate Estimated blood loss (mL): 25 Urine output (mL): 0 Blood Products used (#): none Blood Pressure: 144/60 SaO2: 97 Pulse Rate: 85 Airway Patency: Patent Respiratory Rate: 16 Temperature: 97.5 F Patient is:: Drowsy and Stable Stable to PACU at:: 09:35
--- NOTE | 2024-05-01 08:23 | EXP.ANES.II ---
[facility] Anesthesia Record Part II Anesthesia Record Part II Discharge Time: 10:05 Destination: Surgical Day Care (OP Surgery) PACU nurse assessment reviewed?: Yes Patient Condition:: Good Anesthesia Complications:: None Swallowing reflex intact?: Yes Airway Patency: Patent Cyanosis?: No Blood Pressure: 124/78 SaO2: 100 Respiratory Rate: 18 Pulse Rate: 63 Temperature: 97.5 F Mental Status: Alert & Oriented Pain level:: 0 Nausea and/or vomitting:: None Intake, IV Amount: 0 Hydration: Adequate
[2024-05-01 08:24] VITALS: BP 124/78; PULSE 63; RESP 18; TEMP 36.4; O2SAT 100
== END 2024-04-30 10:34 | disposition home or self-care (01) ==
PROVIDERS: PCP Family Medicine; Visit Provider Nurse Practitioner Obstetrics & Gynecology
PROC: (CPT 58661; principal; 2024-04-30 08:15)
DX: Z30.2 Encounter for sterilization (principal)
CPT/HCPCS: 58661; 96374; J3490; J0690; J1100; J1885; J2250; J2405; J3010; J7120

== ENCOUNTER 2024-06-18 14:07 | Outpatient (CLI) | payer OTHER, SELFPAY ==
[2024-06-18 17:56] LABS: Coronavirus 19, PCR Not Detected (NotDetected); Human Rhinovirus Not Detected (NotDetected); Influenza A, PCR Not Detected (NotDetected); Influenza B, PCR Not Detected (NotDetected); Respiratory Syncytial Virus Not Detected (NotDetected)
== END 2024-06-18 23:59 | disposition home or self-care (01) ==
LOC: LAB.DROPOF 06-19 12:32
PROVIDERS: PCP Nurse Practitioner; Visit Provider Nurse Practitioner
DX: J06.9 Acute upper respiratory infection, unspecified (principal)
CPT/HCPCS: 87631